=== PATIENT | female | born 1945 | race Caucasian/White ===

== ENCOUNTER 2019-11-12 09:10 | Inpatient (IN) | payer MEDICARE, SELFPAY ==
[2019-11-12] VITALS (12 sets, daily range): BP systolic 98–146; BP diastolic 66–89; PULSE 89–104; RESP 16–27; TEMP 36.4–36.7; O2SAT 89–94; BMI 19.5
--- NOTE | ~2019-11-12 | CT_ITS ---
EXAMINATION: CTA chest PE protocol DATE: 11/12/2019 13:37 INDICATION: Shortness of breath. Chest pain. TECHNIQUE: Computed tomography angiography (CTA) of the chest was performed with 100 mL Omnipaque-350 intravenous contrast timed to evaluate the pulmonary arteries. Coronal maximum intensity projection 3D-reconstructions were created by the technologist. Automated exposure control and iterative reconst ruction technique were employed. The dose-length product was 173.80 mGy-cm. COMPARISON: Chest CT 03/25/2018 FINDINGS: There is chronic scarring at the lung apices. There is severe emphysema. There is a stable 5 mm nodule in right lower lobe. There is a stable 3 mm nodule in left upper lobe. Calcified left rohan g nodules and calcified left hilar lymph nodes are consistent with old granulomatous disease. No pleu ral effusion. There are bilateral breast implants. The heart size is normal. No pericardial effusion. There are coronary artery calcifications. There is mild right hilar lymphadenopathy with the largest node measuring 12 x 15 mm. There is mucous plugging in right lower lobe. There is no pulmonary embol us. The visualized portions of the kidneys demonstrate cysts measuring up to 13 mm on the left. There is severe cervical spondylosis and mild thoracic spondylosis. There are chronic burst fractures of T 5, T8, and L1. IMPRESSION: 1. No pulmonary embolus. 2. Severe emphysema. 3. Worsened mild right hilar lymphadenopathy, likely reactive. Reviewed, dictated and finalized at location E.
--- NOTE | ~2019-11-12 | XR_ITS ---
XR chest 1V portable DATE: 11/15/2019 13:17 INDICATION: Cough, dyspnea TECHNIQUE: Portable upright AP chest on 11/15/2019 at 1315 hours COMPARISON: 11/12/2019 CT pulmonary scan FINDINGS: Emphysematous changes are again noted. No pulmonary infiltrate or consolidation, pleural ef fusion or pulmonary vascular congestion or pneumothorax is detected. Bilateral apical scarring. Normal heart size. No hilar or mediastinal enlargement. Diffuse osteopenia. T5 and T8 and L1 compression fracture deformities are demonstrated to better adva ntage on the 11/12/2019 CT thorax examination. IMPRESSION: Emphysema Osteopenia Reviewed, dictated and finalized at location A. IMPRESSION: Emphysema Osteopenia
--- NOTE | ~2019-11-12 | XR_ITS ---
EXAMINATION: XR chest 1V portable DATE: 11/12/2019 10:30 INDICATION: COPD presenting with shortness of breath TECHNIQUE: frontal view of the chest was obtained. COMPARISON: Chest CT dated 03/25/2018 FINDINGS: Hyperexpansion of lungs consistent with emphysema better appreciated on prior CT. Chronic mild pleura l-parenchymal scarring at the right apex. Calcified nodule in the left lower lung zone consistent wit h old granulomatous disease. No pulmonary edema, pleural effusion or pneumothorax. The cardiomediasti nal silhouette is normal. Bilateral breast implants. Mildly tortuous thoracic aorta. IMPRESSION: 1. Emphysema with mild right apical pleural-parenchymal scarring. No acute cardiopulmonary disease. Reviewed, dictated and finalized at location A. IMPRESSION: 1. Emphysema with mild right apical pleural-parenchymal scarring. No acute card iopulmonary disease.
--- NOTE | 2019-11-12 09:32 | ECG_ITS ---
Measurements Intervals [place] Rate: 97 P: 78 NE: 157 QRS: -58 QRSD: 77 T: 55 QT: 332 QTc: 424 Interpretive Statements SINUS RHYTHM POSSIBLE LEFT ATRIAL ENLARGEMENT LOW QRS VOLTAGE IN LIMB LEADS LEFT ANTERIOR FASCICULAR BLOCK BASELINE WANDER- V4-V5 ABNORMAL ECG Electronically Signed On 11-12-2019 13:08:56 CDT by Wilton Torrez D.O.
--- NOTE | 2019-11-12 09:35 | ED.SOB ---
HPI - SOB/Dyspnea General Chief Complaint: Shortness of Breath/Dyspnea Stated Complaint: SOB Time Seen by Provider: 11/12/19 09:20 Source: family Mode of arrival: ambulatory Limitations: clinical condition History of Present Illness HPI Narrative: This patient is a 74 year old female smoker with history of COPD who presents with complaint of shortness of breath. Patient has been short of breath since Saturday. She reports she has productive cough and shortness of breath that has been worsening. She also had chest pain that is intermittent. She is unable to discuss details of shortness of breath. She denies fever, chills, nausea or vomiting. MD elicited complaint: shortness of breath Pertinent past history: COPD Related Data Home Medications Medication Instructions Recorded Confirmed No Home Medications 11/12/19 11/12/19 Allergies Allergy/AdvReac Type Severity Reaction Status Date / Time No Known Allergies Allergy Verified 11/12/19 09:48 Review of Systems Review of Systems: All systems reviewed & are unremarkable except as noted in HPI and below Constitutional: Constitutional: Denies chills and Denies fever(s) ENT: Denies sore throat Cardiovascular: Cardiovascular: Reports chest pain and Denies radiating jaw, neck or arm pain Respiratory: Respiratory: Reports cough and Reports dyspnea Gastrointestinal: Gastrointestinal: Denies abdominal pain, Denies nausea and Denies vomiting Genitourinary: Genitourinary: Denies hematuria Neurologic: Denies dizziness Psychiatric: Psychiatric: Denies anxiety PMFSH Past Medical History Medical History (Updated 11/12/19 @ 19:00 by Annette Mckeon MD) COPD (chronic obstructive pulmonary disease) Surgical History Surgical History (Updated 11/12/19 @ 09:49 by Annette Mckeon MD) H/O: hysterectomy Family History Family History (Updated 11/12/19 @ 16:46 by Ani Castaneda RN) Mother Family history of heart disease in male family member before age 55 Cerebrovascular accident Heart attack Sibling Family history of heart disease in male family member before age 55 Heart attack Cerebrovascular accident Transitional cell carcinoma Father Cerebrovascular accident Social History Social History Years smoked: 60 Smoking status: Former smoker Tobacco type: cigarettes Second hand tobacco smoke exposure: No Smoking end date: 11/09/19 Alcohol intake: former Substance use: never Substance use type: does not use Gender identity (if verbalized by the patient): Female Spiritual care concerns: No Exam Const: General: alert and ill appearing acutely Nutritional Appearance: thin Orientation/consciousness: patient oriented x3 Eyes: EOM: EOMs intact bilaterally Chest: Chest palpation & inspection: normal inspection of the chest Resp: Effort & Inspection: tachypneic and no use of accessory muscles Auscultation: no rales, no wheezes and diminished lung sounds bilateral Cardio: Rate: regular rate Rhythm: regular rhythm Heart sounds: no murmurs GI: GI Palp: Yes Soft to palpation, No Tenderness to palpation present (GI) and No Guarding due to palpation present (GI) Skin: General skin exam: normal color Rashes: no rashes Neuro: General: patient oriented x3 Extrem: General: no pedal edema Course Course Emergency Course: PAtient presented with shortness of breath. Patient has no fever or infiltrates. Her oxygen saturation is 89-91% on room air at rest and she does appear short of breath. Will admit for COPD exacerbation. Vital Signs Vital signs: Vital Signs Temperature 98.1 F 11/12/19 09:20 Pulse Rate 100 11/12/19 09:20 Respiratory Rate 26 H 11/12/19 09:20 Blood Pressure 146/82 H 11/12/19 09:20 Pulse Oximetry 94 11/12/19 09:20 Temperature 97.8 F 11/12/19 16:17 Pulse Rate 94 11/12/19 16:17 Respiratory Rate 24 H 11/12/19 16:17 Blood Pressure 140/88 11/12/19 16:17 Pulse Oximetry
[2019-11-12 09:52] LABS: Basophils Percent Auto 0.5 % (0.2-1.2); Eosinophils Absolute Auto 0.6 K/mm3 (0-0.3); Eosinophils Percent Auto 6.9 % (0-4.4); Hematocrit 46.7 % (37.0-47.0); Hemoglobin 15.2 g/dL (12.0-15.0); Immature Granulocyte Absolute 0.04 K/mm3 (0.00-0.031); Immature Granulocyte Percent A 0.5 % (0-0.5); Lymphocytes Absolute Auto 1.74 K/mm3 (0.9-3.2); Lymphocytes Percent Auto 19.8 % (18.3-44.2); Mean Corpuscular HGB Conc 32.5 g/dl (32-36); Mean Corpuscular Hemoglobin 30.6 pg (26-34); Mean Platelet Volume 11.1 fl (7.4-10.4); Monocytes Absolute Auto 0.5 K/mm3 (0.1-0.6); Monocytes Percent Auto 5.9 % (2.6-8.5); Neutrophils Absolute Auto 5.9 K/mm3 (1.3-6.7); Neutrophils Percent Auto 66.4 % (45.5-73.1); Platelet Count Result 300 k/mm3 (150-375); Red Blood Count 4.97 M/mm3 (4.2-5.4); Red Cell Distribution Width 14.1 % (11.5-14.5); White Blood Count 8.8 K/mm3 (4.5-10.0)
[2019-11-12] MEDS: ALBUTEROL SULFATE (*SP) AEROSOL 1 PUFF 4 PUFF INHALATION ×2 (09:54→14:16)
[2019-11-12 10:05] LABS: INR 0.9; Partial Thromboplastin Time 25.2 SECONDS (22.3-36.8); Prothrombin Time 12.1 Seconds (11.1-14.7)
[2019-11-12 10:06] LABS: Lactic Acid Reflex 1.7 mmol/L (0.7-2.1)
[2019-11-12 10:17] LABS: NT Pro B Type Natriuretic Pept 159 PG/ML (5-100); Troponin I < 0.012 ng/mL (0.000-0.034)
[2019-11-12 10:21] LABS: Base Excess ABG 0.7 mEq/l (+/-2.0); HCO3 ABG 24.3 mEq/l (22.0-26.0); Oxygen Saturation ABG 91.8 % (95.0-100.0); PO2 ABG 58.9 mmHg (80.0-100.0); pH ABG 7.448 (7.350-7.450)
[2019-11-12 10:22] LABS: Total Hemoglobin 14.9 g/dL (12.0-18.0)
[2019-11-12 10:23] LABS: Alveolar/Arterial O2 Gradient 47.7 mmHg; Oxygen Content ABG 18.9 %vol (16.0-22.0); Oxyhemoglobin 90.5 % THb (90.0-100.0)
[2019-11-12 10:24] LABS: Carboxyhemoglobin 0.8 % THb (0-2.0); Device ROOM AIR; Fractional Inspired Oxygen 21 %; Methemoglobin ABG 0.2 %THb (0-1.5); Reduced Hemoglobin 8.5 %THb (0-5.0); Site Drawn RIGHT BRACHIAL
[2019-11-12 10:26] LABS: Alanine Aminotransferase 13 U/L (4-35); Albumin Level 4.9 g/dL (3.5-5.1); Alkaline Phosphatase 99 U/L (38-126); Blood Urea Nitrogen 9 mg/dL (7-17); Carbon Dioxide 26 mmol/L (22-30); Estimated CRCL calculation 50 ml/min; Estimated Glomerular Filt Rate > 60; Glucose 109 mg/dL (65-105); Magnesium 2.1 mg/dL (1.6-2.3); Sodium 140 mmol/L (137-145)
[2019-11-12 11:53] LABS: Calcium 9.8 mg/dL (8.4-10.2); Potassium 4.4 mmol/L (3.4-5.0)
[2019-11-12 11:54] LABS: Aspartate Amino Transferase 26 U/L (14-36)
[2019-11-12] MEDS: methylPREDNISolone SOD SUCC 125 MG VIAL IV PUSH (14:20)
[2019-11-12] MEDS: predniSONE 20 MG TABLET 40 MG PO (14:45)
--- NOTE | 2019-11-12 16:08 | ADMGEN ---
This patient, Mary Kate Keith, was admitted to Medical Room 348-. Patient/family oriented to hospital policies and general routines including ID bracelet, bed and alarms, visiting hours, pain management, procedures, bathroom and other care routines, personal items, smoking policy, room service/diet, and visiting hours. Valuables list has been completed. Information on how to activate the Rapid Response Team has been discussed. Patient/Family are encouraged to report perceived risks to care and to ask questions if they do not understand what they are told or what they should do.
[2019-11-12] MEDS: ALBUTEROL SULFATE (*SP) AEROSOL 1 PUFF 2 PUFF INHALATION (19:25)
--- NOTE | 2019-11-12 22:37 | PM.IMHP ---
H&P: HPI History of Present Illness Chief complaint: COPD exacerbation Narrative: This is a 74 year old female with known COPD who is a chronic smoker and presented to the hospital secondary to worsening shortness of breath, dry cough and wheezing since Saturday. The patient admits that she has been smoking up to 1.5 ppd for the past several months and decided to finally quit this past Saturday. She reports increased chest tightness with coughing, severe shortness of breath with just talking or mild exertion and ongoing wheezing. She has been using her daughter's inhalers without any improvement. She does not see a sealer aircraft and is not on any home oxygen. The patient has never been hospitalized for COPD before. Tonight she also denies any fever, chills, nausea, vomiting, abdominal pain, dysuria, hematuria, diarrhea, or LE swelling. The patient was evaluated in the ER tonight and admitted to the hospital for COPD exacerbation. She denies any contacts with anyone known to have coronavirus. No other complaints tonight. Review of Systems Review of Systems: All systems reviewed & are unremarkable except as noted in HPI and below PMFSH Past Medical History Medical History COPD (chronic obstructive pulmonary disease) Surgical History Surgical History H/O: hysterectomy Family History Family History Mother Family history of heart disease in male family member before age 55 Cerebrovascular accident Heart attack Sibling Family history of heart disease in male family member before age 55 Heart attack Cerebrovascular accident Transitional cell carcinoma Father Cerebrovascular accident Social History Social History Years smoked: 60 Smoking status: Former smoker Tobacco type: cigarettes Second hand tobacco smoke exposure: No Smoking end date: 11/09/19 Alcohol intake: former Substance use: never Substance use type: does not use Gender identity (if verbalized by the patient): Female Spiritual care concerns: No Meds Home Medications and Allergies Home Medications Medication Instructions Recorded Confirmed Type No Home Medications 11/12/19 11/12/19 History Allergies Allergy/AdvReac Type Severity Reaction Status Date / Time No Known Allergies Allergy Verified 11/12/19 09:48 Vital Signs Vital Signs - 24 hr 05/21/20 09:20 11/12/19 11:00 11/12/19 12:48 Temperature 36.7 C 36.7 C Pulse Rate 100 90 90 Respiratory Rate 26 H 24 H 27 H Blood Pressure 146/82 H 124/83 119/89 Pulse Oximetry 94 93 93 11/12/19 13:00 11/12/19 14:00 11/12/19 15:25 Temperature Pulse Rate 89 93 93 Respiratory Rate 16 22 H 22 H Blood Pressure 118/82 124/89 124/89 Pulse Oximetry 93 93 93 11/12/19 16:17 11/12/19 19:26 11/12/19 19:52 Temperature 36.6 C Pulse Rate 94 104 H 99 Respiratory Rate 24 H 24 H 22 H Blood Pressure 140/88 Pulse Oximetry 94 89 L 93 11/12/19 20:07 Temperature 36.4 C Pulse Rate 103 H Respiratory Rate 22 H Blood Pressure 98/66 L Pulse Oximetry 92 Exam Const: General: cooperative, no acute distress, alert, awake and ill appearing chronically Nutritional Appearance: thin and underweight Orientation/consciousness: patient oriented x3 HENMT: Head: normal to inspection General nose exam: Normal external nose present Face and sinus: normal facial exam Mouth: Yes Normal oral and palatal mucosa present and Yes oropharynx normal Eyes: Pupils: Equal, round and reactive pupils present EOM: EOMs intact bilaterally Neck: Neck: supple and no JVD Thyroid: thyroid normal Lymphatic: lymphadenopathy not noted Resp: Effort & Inspection: tachypneic and uses accessory muscles Auscultation: wheezes throughout and diminished lung sounds Cardio: Rate: tachycar
[2019-11-12] MEDS: GUAIFENESIN/DEXTROMETHORPHAN 10 ML UDC 5 ML PO (23:00)
[2019-11-12] MEDS: ALBUTEROL SULFATE NEB 2.5 MG/0.5 ML INH 5 MG INHALATION (23:23)
[2019-11-13] VITALS (12 sets, daily range): BP systolic 102–110; BP diastolic 57–65; PULSE 68–107; RESP 16–24; TEMP 36.2–36.9; O2SAT 87–95
--- NOTE | 2019-11-13 | ECHO_ITS ---
Patient Info Name: Mary Kate Keith Age: 74 years : 1945 Gender: Female Ht: 64 in Wt: 114 lbs BSA: 1.52 m2 HR: 97 bpm BP: 102 / 57 mmHg Heart Rhythm: Sinus Rhythm Technical Quality: Good Exam Date: 11/13/2019 3:09 PM Exam Location: [facility] Pulmonary Patient Status: Inpatient Admit Date: 11/13/2019 Staff Ordering Physician: Patience Rodriguez MD Cattle Broker: Reji Jacobson RDCS Attending Provider: Marlyn Garcia PA-C Referring Physician: Jennifer RIVERA; Exam Type: CA echo doppler color flow Study Info Indications R94.31 - Abnormal electrocardiogram ECG EKG Complete two-dimensional, color flow and Doppler transthoracic echocardiogram is performed. Strain analysis performed. History/Risk Factors COPD exacerbation; SOB, abnormal EKG. Summary 1. Left ventricular chamber dimension is normal. 2. Left ventricular systolic function is normal, estimated at 65-70%. 3. There is mildly increased left ventricular wall thickness. 4. The left ventricular diastolic function is grade I diastolic dysfunction. 5. E/e' 7 is not elevated. 6. Global longitudinal strain is abnormal at -14.4%. 7. There is mild aortic valve sclerosis. 8. There is trace tricuspid valve regurgitation. 9. No pulmonary hypertension, estimated pulmonary arterial systolic pressure is 35 mmHg. Left Ventricle E/e' 7 is not elevated. Global longitudinal strain is abnormal at -14.4%. Left ventricular chamber dimension is normal. Left ventricular systolic function is normal, estimated at 65-70%. There is mildly increased left ventricular wall thickness. The left ventricular diastolic function is grade I diastolic dysfunction. Right Ventricle Right ventricular chamber dimension is normal. Right ventricular systolic function is normal. Left Atria Left atrial chamber dimension is normal. Right Atria Right atrial chamber dimension is normal. Aortic Valve The aortic valve is trileaflet. There is mild aortic valve sclerosis. There is no aortic valve stenosis. There is no aortic valve regurgitation. Pulmonic Valve There is no pulmonic regurgitation. Mitral Valve There is no mitral valve stenosis. There is no mitral valve regurgitation. Tricuspid Valve There is trace tricuspid valve regurgitation. No pulmonary hypertension, estimated pulmonary arterial systolic pressure is 35 mmHg. Pericardium/Pleural There is no pericardial effusion. Inferior Vena Cava Normal inferior vena cava with >50% collapse upon inspiration consistent with normal right atrial pressure, 5 mmHg. Aorta The aortic root size at the sinus of Valsalva is normal. Left Ventricular Outflow Tract Name Value Normal LVOT 2D LVOT Diameter 1.8 cm LVOT Doppler LVOT Peak Gradient 4 mmHg LVOT Mean Gradient 2 mmHg LVOT VTI 14 cm LVOT VTI/AV VTI Ratio 0.6 LVOT Stroke Volume 36 ml LVOT CO 3.4 l/min LVOT CI 2.2 l/min/m2
[2019-11-13] MEDS: methylPREDNISolone SOD SUCC 125 MG VIAL 60 MG IV PUSH ×5 (01:15→23:00)
[2019-11-13] MEDS: ALBUTEROL SULFATE NEB 2.5 MG/0.5 ML INH 5 MG INHALATION ×4 (02:32→20:15)
[2019-11-13 05:56] LABS: Basophils Percent Auto 0.2 % (0.2-1.2); Eosinophils Percent Auto 0.4 % (0-4.4); Hematocrit 42.5 % (37.0-47.0); Hemoglobin 13.9 g/dL (12.0-15.0); Immature Granulocyte Absolute 0.05 K/mm3 (0.00-0.031); Immature Granulocyte Percent A 0.5 % (0-0.5); Lymphocytes Absolute Auto 1.42 K/mm3 (0.9-3.2); Lymphocytes Percent Auto 15.3 % (18.3-44.2); Mean Corpuscular HGB Conc 32.7 g/dl (32-36); Mean Corpuscular Volume 91.6 fl (80-100); Mean Platelet Volume 11.3 fl (7.4-10.4); Monocytes Absolute Auto 0.1 K/mm3 (0.1-0.6); Monocytes Percent Auto 1.5 % (2.6-8.5); Neutrophils Absolute Auto 7.6 K/mm3 (1.3-6.7); Neutrophils Percent Auto 82.1 % (45.5-73.1); Platelet Count Result 300 k/mm3 (150-375); Red Blood Count 4.64 M/mm3 (4.2-5.4); Red Cell Distribution Width 13.9 % (11.5-14.5); White Blood Count 9.3 K/mm3 (4.5-10.0)
[2019-11-13 06:36] LABS: Blood Urea Nitrogen 14 mg/dL (7-17); Calcium 9.7 mg/dL (8.4-10.2); Carbon Dioxide 26 mmol/L (22-30); Chloride 105 mmol/L (98-107); Estimated CRCL calculation 50 ml/min; Estimated Glomerular Filt Rate > 60; Glucose 128 mg/dL (65-105); Magnesium 2.2 mg/dL (1.6-2.3); Potassium 4.2 mmol/L (3.4-5.0); Sodium 136 mmol/L (137-145)
--- NOTE | 2019-11-13 12:09 | PM.IMPN ---
Progress Note: A&P Assessment and Plan (1) Acute exacerbation of chronic obstructive airways disease: Code(s): J44.1 - Chronic obstructive pulmonary disease with (acute) exacerbation Status: Acute Assessment and Plan: The patient reports a 45 pack-year smoking hx. She quit smoking on Wednesday 11/08 due to onset of dyspnea, dry cough, and wheezing since Saturday, 11/07. She did use her daughter's inhalers with no significant improvement. She is not established with pulmonology and has no prior hx of hospitalization for COPD exacerbation. CXR revealed emphysema. CTA chest was ordered and revealed severe emphysema without evidence of PE. Use supplemental oxygen as needed to main oxygen saturation >92%, wean as tolerated Continuous pulse oximetry Continue albuterol and ipratropium Q6HRT Continue IV solu-medrol 60mg Q6HR Continue accapella therapy Continue mucinex PRN Continue pulmozyme Pulmonology has been consulted and recommendations are greatly appreciated (2) Atherosclerosis: Code(s): I70.90 - Unspecified atherosclerosis Status: Acute Assessment and Plan: CTA chest revealed coronary artery calcification. She will need to follow-up outpatient as she has risk factors for CAD. Begin ASA EC 81mg Will check lipid panel Time Spent With Patient Time with patient: 15 - 25 minutes Subjective Date/time seen: 11/13/19 12:09 Interval history: Mrs. Keith is seen and examined at bedside in follow-up for COPD. She endorses dyspnea. She also reports paroxysmal coughing fits that are non-productive. She recently quit smoking on Saturday. Her dyspnea started on Saturday and has progressively worsened so she presented to the ED. She denies chest pain. She is eating well without complaints. She has no urinary complaints. She denies diarrhea and constipation. She denies headaches, dizziness, and lightheadedness. Review of Systems Review of Systems: All systems reviewed & are unremarkable except as noted in HPI and below Exam Narrative: Exam Narrative: General: Thin, chronically ill-appearing, and well-developed 74 y.o. female who is sitting in the byers's position in bed. HEENT: Normocephalic and atraumatic. Conjunctivae and lids normal. PERRL. EOMI. Mucous membranes tacky. Posterior pharynx without erythema or exudate. Neck: Supple without lymphadenopathy or masses. Cardiac: Regular rate and rhythm. S1 and S2 normal. No murmur appreciated. Lungs: On 3L NC with oxygen saturation 95%. Increased breathing effort and accessory muscle use. Breath sounds are diminished with prolonged inspiratory phase. Faint expiratory wheezes present in the bases. No rhonchi or rales. She had a coughing fit during my interview that was non-productive. Abdomen: Bowel sounds normoactive. Abdomen is soft, non-distended, and non-tender. Extremities: No lower extremity edema. 2+ DP and PT bilaterally. Neurological: Alert. Speech is clear. Skin: Warm and dry. Psychiatric: Judgment and insight intact. Mood pleasant and affect normal. Objective Data Vital Signs Vital Signs: Vital Signs - 24 hr 11/12/19 12:48 11/12/19 13:00 11/12/19 14:00 Temperature 98.1 F Pulse Rate 90 89 93 Respiratory Rate 27 H 16 22 H Blood Pressure 119/89 118/82 124/89 Pulse Oximetry 93 93 93 11/12/19 15:25 11/12/19 16:17 11/12/19 19:26 Temperature 97.8 F Pulse Rate 93 94 104 H Respiratory Rate 22 H 24 H 24 H Blood Pressure 124/89 140/88 Pulse Oximetry 93 94 89 L 11/12/19 19:52 11/12/19 20:07 11/12/19 23:26 Temperature 97.6 F Pulse Rate 99 103 H 90 Respiratory Rate 22 H 22 H 22 H Blood Pressure 98/66 L Pulse Oximetry 93 92 11/12/19 23:35 11/13/19 02:33 11/13/19 02:40 Temperature Pulse Rate 89 84 82 Respiratory Rate 20 18 18 Blood Pressure Pulse Oximetry 11/13/19 05:27 11/13/19 09:10 11/13/19 09:15 Temperature 97.1 F L Pulse Rate 86 91 Respiratory Rate 20 16 Blood Pressure 103/65 Pulse
[2019-11-13] MEDS: IPRATROPIUM BR 0.02% INH SOLN 0.5 MG/2.5 ML VIAL INHALATION ×2 (14:17→20:15)
--- NOTE | 2019-11-13 14:31 | PM.CNPUL ---
Assessment and Plan Assessment and plan (1) Acute exacerbation of chronic obstructive airways disease: Code(s): J44.1 - Chronic obstructive pulmonary disease with (acute) exacerbation Status: Acute Assessment and Plan: She has severe COPD on the CTA, is not on Rx at home. She is on steroid wean, bronchodilators, Pulmozyme, empiric azithromycin for mucus plugging and secretions along with vibratory vest and Cornet valve. She will need PFTs after discharge and evaluation for cardiopulmonary rehab. She may be a candidate for exercise at home. With 2 minors at home, she will not be able to leave home 3 times a week for exercise. (2) History of tobacco abuse: Code(s): Z87.891 - Personal history of nicotine dependence Status: Acute Assessment and Plan: Stopped November 08 after 60 sol years of smoking, most recently up to 2 ppd.No vaping, no marijuana. (3) Hypoxemia requiring supplemental oxygen: Code(s): R09.02 - Hypoxemia; Z99.81 - Dependence on supplemental oxygen Status: Acute Assessment and Plan: This may be due to the exacerbation of COPD; we do not know what her baseline is; she has smoked until SaturdayNovember 08, stopped because she was too short of breath to continue. She will need a Home O2 evaluation before discharge, and PFT, exercise evaluation and possibly sleep testing after discharge. She does nto have CO2 retnetion. She does not follow with a primary care doctor, says that Dr Swift is her assigned doctor, and that she has had an appointment with his FIELD CONTRACTOR, but has not followed up; she must do so, and I will be happy to see her in the office. She is 74, and needs a primary doctor to coordinate her medical issues. (4) Shortness of Breath: Code(s): R06.02 - Shortness of breath Status: Acute Assessment and Plan: With tobacco cessation and addition of bronchodilators, she may go home and have more energy; another possibility is that she may not return to pre-admission baseline; this loss of reserve occurs with exacerbations of COPD. History of Present Illness History of Present Illness Consult date: 11/15/19 Requesting physician: Marlyn Garcia PA-C Reason for consult: COPD Chief complaint: COPD exacerbation Narrative: Marlyn Garcia PA-C requested me to see this patient for COPD exacerbation and shortness of breath. Patient was seen November 14 at 19:45. NEW: Mary Kate Keith is a 74 yo smoker with no past medical history of COPD. She was admitted with increased shortness of breath, nonproductive cough that was severe to the point of near syncope. CXR was negative for infiltrate. She has been a heavy smoker, a pack a day for close to 60 years, usually 3/4 packs per day, however increased to 2 packs a day for the last month due to increased stress while adopting a 5 year old son. She has an eleven year old son at home, too. She was stopped smoking last Saturday due to increased shortness of breath. CT chest : No pulmonary embolus. 2. Severe emphysema. 3. Worsened mild right hilar lymphadenopathy, likely reactive. She has never been on inhalers, and denies prior shortness of breath, cough, sputum, wheezing or other symptoms of COPD. She had a hospitalization for pneumonia in 1977, otherwise, denies respiratory infections. She is able to perform her daily activities, has back up help for shopping from her son who lives a house away, [place], and her daughter. She has 8 biologic children, retired from [employer] after 40 years of work. She had an intense coughing episode today at 11 am, and has sharp pain in the left posterior ribs. Had history of RLL nodule since 2010. Syncope in 2017 documented in our radiology reports, and
[2019-11-13] MEDS: GUAIFENESIN/DEXTROMETHORPHAN 10 ML UDC 5 ML PO (19:09)
[2019-11-13] MEDS: DORNASE ALFA INH SOLN 1 MG/ML 2.5 ML AMP 2.5 MG INHALATION (20:15)
[2019-11-14] VITALS (13 sets, daily range): BP systolic 103–106; BP diastolic 59–68; PULSE 75–110; RESP 18–20; TEMP 36.2–36.9; O2SAT 92–96
[2019-11-14] MEDS: ALBUTEROL SULFATE NEB 2.5 MG/0.5 ML INH 5 MG INHALATION ×4 (01:43→19:41)
[2019-11-14] MEDS: IPRATROPIUM BR 0.02% INH SOLN 0.5 MG/2.5 ML VIAL INHALATION ×4 (01:43→19:41)
[2019-11-14] MEDS: methylPREDNISolone SOD SUCC 125 MG VIAL 60 MG IV PUSH ×3 (05:51→21:16)
[2019-11-14 06:13] LABS: Hematocrit 39.3 % (37.0-47.0); Hemoglobin 12.6 g/dL (12.0-15.0); Mean Corpuscular HGB Conc 32.1 g/dl (32-36); Mean Corpuscular Hemoglobin 29.8 pg (26-34); Mean Corpuscular Volume 92.9 fl (80-100); Platelet Count Result 277 k/mm3 (150-375); Red Blood Count 4.23 M/mm3 (4.2-5.4); Red Cell Distribution Width 14.1 % (11.5-14.5); White Blood Count 21.6 K/mm3 (4.5-10.0)
[2019-11-14 06:26] LABS: Blood Urea Nitrogen 18 mg/dL (7-17); Carbon Dioxide 25 mmol/L (22-30); Chloride 108 mmol/L (98-107); Cholesterol 176 mg/dL (0-200); Estimated CRCL calculation 50 ml/min; Estimated Glomerular Filt Rate > 60; Glucose 127 mg/dL (65-105); HDL Direct 53 mg/dL; Potassium 4.6 mmol/L (3.4-5.0); Sodium 138 mmol/L (137-145); Triglycerides 70 mg/dL (<150)
[2019-11-14 06:37] LABS: LDL Cholesterol Direct 94 mg/dL
[2019-11-14] MEDS: AZITHROMYCIN 250 MG TABLET PO (08:53)
[2019-11-14] MEDS: ASPIRIN 81 MG ENTERIC TABLET PO (08:53)
[2019-11-14] MEDS: DORNASE ALFA INH SOLN 1 MG/ML 2.5 ML AMP 2.5 MG INHALATION ×2 (08:58→19:41)
[2019-11-14] MEDS: GUAIFENESIN/DEXTROMETHORPHAN 10 ML UDC 5 ML PO (11:29)
--- NOTE | 2019-11-14 12:09 | PM.IMPN ---
Progress Note: A&P Assessment and Plan (1) Acute exacerbation of chronic obstructive airways disease: Code(s): J44.1 - Chronic obstructive pulmonary disease with (acute) exacerbation Status: Acute Assessment and Plan: The patient reports a 45 pack-year smoking hx. She quit smoking on Wednesday 11/08 due to onset of dyspnea, dry cough, and wheezing since Saturday, 11/07. She did use her daughter's inhalers with no significant improvement. She is not established with pulmonology and has no prior hx of hospitalization for COPD exacerbation. CXR revealed emphysema. CTA chest was ordered and revealed severe emphysema without evidence of PE. Discussed with Dr. Rodriguez. Echo revealed normal LV systolic function with EF 60-75% and grade 1 diastolic dysfunction with no evidence of pulmonary hypertension. Use supplemental oxygen as needed to main oxygen saturation >92%, wean as tolerated Continue albuterol and ipratropium Q6HRT Continue IV solu-medrol, will taper to 60mg Q8HR Continue accapella therapy, will add vest to help loosen secretions Continue mucinex PRN Continue pulmozyme Pulmonology has been consulted and recommendations are greatly appreciated (2) Atherosclerosis: Code(s): I70.90 - Unspecified atherosclerosis Status: Acute Assessment and Plan: CTA chest revealed coronary artery calcification. She will need to follow-up outpatient as she has risk factors for CAD. Echo was performed to evaluate for HTN and reveals normal LV systolic function of 65-70% and grade 1 diastolic dysfunction. Begin ASA EC 81mg Lipid panel was normal Subjective Date/time seen: 11/14/19 12:09 Interval history: Mrs. Keith is seen and examined at bedside in follow-up for COPD exacerbation. She is feeling better today. She reports that she slept well last night. She continues to endorse dyspnea with exertion. She denies SOB walking to the bathroom but does develop it walking back. She denies dyspnea at rest. She denies chest pain and pressure. She denies palpitations. She reports persistent episodes of cough and did have white/light yellow sputum. She denies subjective fever and chills. She reports that her appetite is good and she is tolerating PO intake well. She denies constipation and diarrhea. Review of Systems Review of Systems: All systems reviewed & are unremarkable except as noted in HPI and below Exam Narrative: Exam Narrative: General: Thin, chronically ill appearing and well-developed 74 y.o. female who is lying in the semi-byers's position in bed in no acute distress. She is non-toxic appearing. HEENT: Normocephalic and atraumatic. Conjunctivae and lids normal. EOMI. Mucous membranes moist. Posterior pharynx without erythema or exudate. Neck: Supple without lymphadenopathy or masses. Cardiac: Regular rate and rhythm. S1 and S2 normal. No murmur. Lungs: On 2.5 NC with oxygen saturation 97%. Effort is normal. Breath sounds are diminished throughout with prolonged inspiratory phase. No wheezes, rhonchi, or rales. Abdomen: Bowel sounds normoactive. Abdomen is soft, non-distended, and non-tender. Extremities: No lower extremity edema. DP and PT 2+ bilaterally. Neurological: Alert and orientedx3. Exam is non-focal. Speech is clear. Skin: Warm and dry. Psychiatric: Judgment and insight intact. Mood pleasant and affect normal. Objective Data Vital Signs Vital Signs: Vital Signs - 24 hr 11/13/19 14:19 11/13/19 14:26 11/13/19 15:14 Temperature 98.5 F Pulse Rate 84 86 68 Respiratory Rate 20 20 22 H Blood Pressure 102/57 L Pulse Oximetry 93 11/13/19 19:48 11/13/19 20:17 11/13/19 20:18 Temperature 98.1 F Pulse Rate 107 H 100 Respiratory Rate 24 H 20 Blood Pressure 110/61 Pulse Oximetry 95 90 11/13/19 20:36 11/14/19 01:45 11/14/19 01:55 Temperature Pulse Rate 103 H 89 91 Respiratory Rate 18 18 Blood Pressure Pulse Oximetry 11/14/19 05:54 11/14/19 08:58
[2019-11-14] MEDS: CALCIUM CARBONATE (TUMS) 500 MG (200 MG ELEMENTAL) PO (21:16)
[2019-11-14] MEDS: FAMOTIDINE 20 MG TABLET PO (21:16)
[2019-11-15] VITALS (12 sets, daily range): BP systolic 111–128; BP diastolic 66–75; PULSE 70–94; RESP 18–20; TEMP 36.3–36.7; O2SAT 95–98
[2019-11-15] MEDS: IPRATROPIUM BR 0.02% INH SOLN 0.5 MG/2.5 ML VIAL INHALATION ×4 (01:20→20:35)
[2019-11-15] MEDS: ALBUTEROL SULFATE NEB 2.5 MG/0.5 ML INH 5 MG INHALATION ×4 (01:20→20:35)
[2019-11-15] MEDS: methylPREDNISolone SOD SUCC 125 MG VIAL 60 MG IV PUSH ×2 (05:36→20:00)
[2019-11-15 06:01] LABS: Hemoglobin 12.3 g/dL (12.0-15.0); Mean Corpuscular HGB Conc 32.4 g/dl (32-36); Mean Corpuscular Hemoglobin 30.7 pg (26-34); Mean Corpuscular Volume 94.8 fl (80-100); Mean Platelet Volume 11.4 fl (7.4-10.4); Platelet Count Result 261 k/mm3 (150-375); Red Blood Count 4.01 M/mm3 (4.2-5.4); Red Cell Distribution Width 14.1 % (11.5-14.5); White Blood Count 17.5 K/mm3 (4.5-10.0)
[2019-11-15 06:14] LABS: Blood Urea Nitrogen 16 mg/dL (7-17); Calcium 8.7 mg/dL (8.4-10.2); Carbon Dioxide 27 mmol/L (22-30); Chloride 106 mmol/L (98-107); Estimated CRCL calculation 50 ml/min; Estimated Glomerular Filt Rate > 60; Glucose 119 mg/dL (65-105); Potassium 4.3 mmol/L (3.4-5.0); Sodium 137 mmol/L (137-145)
[2019-11-15 06:35] LABS: Hemoglobin A1C 5.5 % (<5.7)
[2019-11-15] MEDS: DORNASE ALFA INH SOLN 1 MG/ML 2.5 ML AMP 2.5 MG INHALATION ×2 (08:14→20:36)
[2019-11-15] MEDS: AZITHROMYCIN 250 MG TABLET PO (08:41)
[2019-11-15] MEDS: ASPIRIN 81 MG ENTERIC TABLET PO (08:41)
[2019-11-15] MEDS: FAMOTIDINE 20 MG TABLET PO ×2 (08:41→20:00)
[2019-11-15] MEDS: GUAIFENESIN/DEXTROMETHORPHAN 10 ML UDC 5 ML PO (11:25)
--- NOTE | 2019-11-15 12:46 | PM.IMPN ---
Progress Note: A&P Assessment and Plan (1) Acute exacerbation of chronic obstructive airways disease: Code(s): J44.1 - Chronic obstructive pulmonary disease with (acute) exacerbation Status: Acute Assessment and Plan: The patient reports a 45 pack-year smoking hx. She quit smoking on Wednesday 11/08 due to onset of dyspnea, dry cough, and wheezing since Saturday, 11/07. She did use her daughter's inhalers with no significant improvement. She is not established with pulmonology and has no prior hx of hospitalization for COPD exacerbation. CXR revealed emphysema. CTA chest was ordered and revealed severe emphysema without evidence of PE. Discussed with Dr. Rodriguez who is on board. Echo revealed normal LV systolic function with EF 60-75% and grade 1 diastolic dysfunction with no evidence of pulmonary hypertension. She was weaned to 2L NC today (11/14). She reports that her dyspnea continues to improve but she is still having dyspnea on exertion. She is producing small amounts of sputum with her cough. She had a mucous plug evident in the RLL on CTA chest. She does believe that vest therapy is helping her to mobilize secretions. Use supplemental oxygen as needed to main oxygen saturation >92%, wean as tolerated Continue albuterol and ipratropium Q6HRT Continue IV solu-medrol, will taper to 60mg Q12 HR Continue accapella and vest therapy Continue mucinex, will schedule Will add benzonatate PRN for persistent/severe coughing Continue pulmozyme Pulmonology has been consulted and recommendations are greatly appreciated (2) Atherosclerosis: Code(s): I70.90 - Unspecified atherosclerosis Status: Acute Assessment and Plan: CTA chest revealed coronary artery calcification. She will need to follow-up outpatient as she has risk factors for CAD. Echo was performed to evaluate for HTN and reveals normal LV systolic function of 65-70% and grade 1 diastolic dysfunction. Begin ASA EC 81mg Lipid panel was normal Will defer decision to start a statin to her PCP (3) Leukocytosis: Code(s): D72.829 - Elevated white blood cell count, unspecified Status: Acute Assessment and Plan: WBC was 9,300 at presentation. She developed leukocytosis 11/13, likely due to high dose IV steroid therapy. She is afebrile. She is on azithromycin for her COPD exacerbation. Will repeat CXR today. Continue to monitor (4) DVT prophylaxis: Code(s): Z29.9 - Encounter for prophylactic measures, unspecified Status: Acute Assessment and Plan: Lovenox SQ is ordered but the patient is refusing it because she is very scared of needles. She is agreeable to SCDs. I discussed the risk of VTE while hospitalized and with her current condition/therapy. Subjective Date/time seen: 11/15/19 12:46 Interval history: Mrs. Keith is seen and examined at bedside in follow-up for COPD exacerbation. Overall, she reports that she is feeling better. She does continue to have intermittent coughing episodes. She reports one episode earlier today and she coughed several times during my visit with light yellow/white sputum production. She reports that her dyspnea at rest has improved. She still endorses FUNEZ. She endorses costal tenderness with coughing. She denies chest pain and pressure. She has no other concerns at this time. She denies constipation and diarrhea. She denies nausea, vomiting, and abdominal pain. Review of Systems Review of Systems: All systems reviewed & are unremarkable except as noted in HPI and below Exam Narrative: Exam Narrative: General: Thin, well-developed, and chronically ill appearing 74 y.o. female sitting in bed in the byers's position in bed in no acute respiratory distress. HEENT: Normocephalic and atraumatic. Conjunctivae and lids normal. EOMI. Mucous membranes moist. Posterior pharynx without erythema or exudate. Neck: Supple without lymphadenopathy or masses. Cardiac: Regular rate
[2019-11-16] VITALS (15 sets, daily range): BP systolic 119–130; BP diastolic 68–81; PULSE 70–96; RESP 18–20; TEMP 36.1–36.6; O2SAT 93–96
[2019-11-16] MEDS: ALBUTEROL SULFATE NEB 2.5 MG/0.5 ML INH 5 MG INHALATION ×2 (01:05→09:28)
[2019-11-16] MEDS: IPRATROPIUM BR 0.02% INH SOLN 0.5 MG/2.5 ML VIAL INHALATION ×4 (01:05→21:19)
[2019-11-16 08:06] LABS: Basophils Percent Auto 0.2 % (0.2-1.2); Eosinophils Percent Auto 0.1 % (0-4.4); Hematocrit 41.2 % (37.0-47.0); Hemoglobin 13.4 g/dL (12.0-15.0); Immature Granulocyte Absolute 0.22 K/mm3 (0.00-0.031); Immature Granulocyte Percent A 1.4 % (0-0.5); Lymphocytes Absolute Auto 2.66 K/mm3 (0.9-3.2); Lymphocytes Percent Auto 17.5 % (18.3-44.2); Mean Corpuscular HGB Conc 32.5 g/dl (32-36); Mean Corpuscular Hemoglobin 31.1 pg (26-34); Mean Corpuscular Volume 95.6 fl (80-100); Mean Platelet Volume 11.2 fl (7.4-10.4); Monocytes Absolute Auto 1.1 K/mm3 (0.1-0.6); Neutrophils Absolute Auto 11.2 K/mm3 (1.3-6.7); Neutrophils Percent Auto 73.8 % (45.5-73.1); Platelet Count Result 268 k/mm3 (150-375); Red Blood Count 4.31 M/mm3 (4.2-5.4); Red Cell Distribution Width 13.9 % (11.5-14.5); White Blood Count 15.2 K/mm3 (4.5-10.0)
[2019-11-16 08:18] LABS: Magnesium 2.3 mg/dL (1.6-2.3)
[2019-11-16] MEDS: ASPIRIN 81 MG ENTERIC TABLET PO (08:32)
[2019-11-16] MEDS: AZITHROMYCIN 250 MG TABLET PO (08:32)
[2019-11-16] MEDS: FAMOTIDINE 20 MG TABLET PO ×2 (08:32→21:44)
[2019-11-16] MEDS: methylPREDNISolone SOD SUCC 125 MG VIAL 60 MG IV PUSH (08:33)
[2019-11-16] MEDS: DORNASE ALFA INH SOLN 1 MG/ML 2.5 ML AMP 2.5 MG INHALATION ×2 (09:28→21:19)
--- NOTE | 2019-11-16 11:08 | PC.NURSE ---
Per Cara WRIGHT, IV can be left out for now, since it infiltrated, until she sees the pt today.
--- NOTE | 2019-11-16 13:16 | PM.PNPUL ---
Progress Note: A&P Assessment and Plan (1) Acute exacerbation of chronic obstructive airways disease: Code(s): J44.1 - Chronic obstructive pulmonary disease with (acute) exacerbation Status: Acute Assessment and Plan: - d/c solumedrol and start prednisone 30 mg daily daily tomorrow am for 4-5 days - decrease dose of Albuterol Neb to 2.5 mg Q6h - add pulmicort 0.5 mg Q12h - upon discharge switch to Symbicort 160/4.5 mcg 2 puffs Q12h via spacer device + Spiriva 18 mcg 1 puff daily - continue PT/OT - assess oxygen on exertion. Subjective Date/time seen: 11/16/19 13:16 Interval history: 74 y/o with newly diagnosed COPD, likely moderate to severe. Will likely need home O2. Still very short of breath with minimal exertion but slowly recovering. Lost IV line line this morning. Review of Systems Review of Systems: All systems reviewed & are unremarkable except as noted in HPI and below Exam Const: General: in distress and uncomfortable HENMT: Mouth: Yes moist mucous membranes Eyes: General: appearance normal, both eyes and all related structures Neck: Neck: supple and no JVD Resp: Auscultation: wheezes and diminished lung sounds Cardio: Rate: regular rate Rhythm: regular rhythm Heart sounds: no murmurs GI: Auscultation: normal bowel sounds Neuro: Speech: normal speech Extrem: General: normal to inspection, no edema and no pedal edema Psych: Mental Status: mental status grossly normal Affect: Anxious affect present Objective Data Vital Signs Vital Signs: Vital Signs - 24 hr 11/15/19 13:52 11/15/19 14:00 11/15/19 19:38 Temperature 36.4 C 36.3 C L Pulse Rate 94 82 86 Respiratory Rate 20 18 20 Blood Pressure 128/69 115/75 Pulse Oximetry 96 97 11/15/19 20:36 11/15/19 20:50 11/16/19 01:05 Temperature Pulse Rate 74 79 70 Respiratory Rate 20 20 18 Blood Pressure Pulse Oximetry 96 11/16/19 01:14 11/16/19 05:26 11/16/19 08:30 Temperature 36.1 C L Pulse Rate 71 75 95 Respiratory Rate 18 20 Blood Pressure 123/78 Pulse Oximetry 96 11/16/19 09:30 11/16/19 09:40 Temperature Pulse Rate 72 96 Respiratory Rate 18 20 Blood Pressure Pulse Oximetry Intake/Output Intake/Output: Intake & Output 11/13/19 11/14/19 11/15/19 11/16/19 23:59 23:59 23:59 23:59 Intake Total 1415 2020 2740 370 Output Total 300 2050 2650 1050 Balance 1115 -30 90 -680 Meds/Results Medications: Active Medications Generic Name Dose Route Start Last Admin Trade Name Freq PRN Reason Stop Dose Admin Albuterol 2.5 mg 11/13/19 15:19 Albuterol Sulf Neb 2.5mg/0.5ml INHALATION Q4HRT PRN Shortness Of Breath Aspirin 81 mg 11/14/19 09:00 11/16/19 08:32 Aspirin Ec PO 81 mg QAM ANT Administration Azithromycin 250 mg 11/14/19 09:00 11/16/19 08:32 Zithromax Tablet PO 11/17/19 09:01 250 mg DAILY ANT Administration Benzonatate 100 mg 11/15/19 13:08 Tessalon Perles PO TID PRN Cough Calcium Carbonate 200 mg 11/14/19 20:53 11/14/19 21:16 Tums PO 200 mg Q6H PRN Administration Indigestion Dornase Yassine 2.5 mg 11/13/19 20:00 11/16/19 09:28 Pulmozyme INHALATION 2.5 mg Q12HRT ANT Administration Enoxaparin Sodium 40 mg 11/13/19 21:00 11/15/19 19:57 Lovenox SUB-Q Not Given HS [facility] Famotidine 20 mg 11/14/19 21:00 11/16/19 08:32 Pepcid PO 20 mg Q12HR ANT Administration Guaifenesin 600 mg 11/15/19 21:00 11/16/19 08:32 Mucinex 12 Hr Tab PO 600 mg Q12HR ANT Administration Ipratropium Adams 0.5 mg 11/13/19 14:00 11/16/19 09:28 Atrovent Neb INHALATION 0.5 mg Q6HRT ANT Administration Radiology Results: ITS Impressions Chest CTA 11/12/19 13:47 IMPRESSION: 1. No pulmonary embolus. 2. Severe emphysema. 3. Worsened mild right hilar lymphadenopathy, likely reactive. Chest X-Ray 11/15/19 13:21 IMPRESSION: Emphysema Osteopenia Labs Labs:
--- NOTE | 2019-11-16 13:25 | PM.IMPN ---
Progress Note: A&P Assessment and Plan (1) Acute exacerbation of chronic obstructive airways disease: Code(s): J44.1 - Chronic obstructive pulmonary disease with (acute) exacerbation Status: Acute Assessment and Plan: The patient reports a 45 pack-year smoking hx. She quit smoking on Wednesday 11/08 due to onset of dyspnea, dry cough, and wheezing since Saturday, 11/07. She did use her daughter's inhalers with no significant improvement. She is not established with pulmonology and has no prior hx of hospitalization for COPD exacerbation. CXR revealed emphysema. CTA chest was ordered and revealed severe emphysema without evidence of PE. Discussed with Dr. Rodriguez who is on board. Echo revealed normal LV systolic function with EF 60-75% and grade 1 diastolic dysfunction with no evidence of pulmonary hypertension. She was weaned to 1.5L per NC 11/15. She continues to endorse dyspnea on exertion. Pulmonology has been consulted and recommendations are greatly appreciated Use supplemental oxygen as needed to main oxygen saturation >92%, wean as tolerated Continue albuterol and ipratropium Q6HRT, plan to decreased albuterol dose per pulmonology recommendations Discontinue solu-medrol and transition to PO prednisone starting tomorrow (11/15) for 4-5 days Continue accapella and vest therapy Continue mucinex Will add benzonatate PRN for persistent/severe coughing Continue pulmozyme Begin pulmoicort and switch to Symbicort 160/4.5 mcg 2 puffs Q12h via spacer device + Spiriva 18 mcg 1 puff daily at discharge She will need a 6 minute walk test prior to discharge to evaluate for home oxygen needs within 24 of discharge (2) Atherosclerosis: Code(s): I70.90 - Unspecified atherosclerosis Status: Acute Assessment and Plan: CTA chest revealed coronary artery calcification. She will need to follow-up outpatient as she has risk factors for CAD. Echo was performed to evaluate for HTN and reveals normal LV systolic function of 65-70% and grade 1 diastolic dysfunction. Continue ASA EC 81mg Lipid panel was normal Will defer decision to start a statin to her PCP (3) Leukocytosis: Code(s): D72.829 - Elevated white blood cell count, unspecified Status: Acute Assessment and Plan: WBC was 9,300 at presentation. She developed leukocytosis 11/13, likely due to high dose IV steroid therapy. She is afebrile. She is on azithromycin for her COPD exacerbation. CXR was repeated and reveals emphysema without consolidation. WBC continues to trend down. Continue to monitor (4) DVT prophylaxis: Code(s): Z29.9 - Encounter for prophylactic measures, unspecified Status: Acute Assessment and Plan: Lovenox SQ is ordered but the patient is refusing it because she is very scared of needles. She is agreeable to SCDs. I discussed the risk of VTE while hospitalized and with her current condition/therapy. Subjective Date/time seen: 11/16/19 13:25 Interval history: Mrs. Keith is seen in follow-up for a COPD exacerbation. She continues to endorse FUNEZ. She is feeling better at rest. She reports fewer coughing fits. She has no other complaints at this time. She is tolerating her diet well. She denies constipation and diarrhea. She denies chest pain and palpitations. She reports that her costal tenderness is much better now that her coughing has improved. Review of Systems Review of Systems: All systems reviewed & are unremarkable except as noted in HPI and below Exam Narrative: Exam Narrative: General: Very pleasant and cooperative thin, well-developed and chronically ill appearing 74 y.o. female sitting in the semi-recumbent position in bed in no acute distress. HEENT: Normocephalic and atraumatic. Sclerae anicteric. Conjunctivae and lids normal. EOMI. Mucous membranes moist. Posterior pharynx without erythema or exudate. Neck: Supple without lymphadenopathy or masses. Cardiac: Regular ra
[2019-11-16] MEDS: ALBUTEROL SULFATE NEB 2.5 MG/0.5 ML INH INHALATION ×2 (15:15→21:19)
[2019-11-16] MEDS: BUDESONIDE RESPULE NEB 0.5 MG/2 ML AMP INHALATION (21:19)
[2019-11-17] VITALS (17 sets, daily range): BP systolic 106–135; BP diastolic 73–83; PULSE 77–101; RESP 16–20; TEMP 36.3–37.2; O2SAT 92–96
[2019-11-17] MEDS: IPRATROPIUM BR 0.02% INH SOLN 0.5 MG/2.5 ML VIAL INHALATION ×4 (02:45→20:23)
[2019-11-17] MEDS: ALBUTEROL SULFATE NEB 2.5 MG/0.5 ML INH INHALATION ×4 (02:45→20:23)
[2019-11-17 05:38] LABS: Hematocrit 37.7 % (37.0-47.0); Hemoglobin 12.1 g/dL (12.0-15.0); Mean Corpuscular HGB Conc 32.1 g/dl (32-36); Mean Corpuscular Hemoglobin 30.3 pg (26-34); Mean Corpuscular Volume 94.5 fl (80-100); Mean Platelet Volume 11.5 fl (7.4-10.4); Platelet Count Result 234 k/mm3 (150-375); Red Blood Count 3.99 M/mm3 (4.2-5.4); White Blood Count 14.5 K/mm3 (4.5-10.0)
[2019-11-17 05:49] LABS: Blood Urea Nitrogen 16 mg/dL (7-17); Calcium 8.5 mg/dL (8.4-10.2); Carbon Dioxide 32 mmol/L (22-30); Chloride 103 mmol/L (98-107); Estimated CRCL calculation 50 ml/min; Estimated Glomerular Filt Rate > 60; Glucose 84 mg/dL (65-105); Potassium 3.5 mmol/L (3.4-5.0); Sodium 137 mmol/L (137-145)
[2019-11-17] MEDS: AZITHROMYCIN 250 MG TABLET PO (08:19)
[2019-11-17] MEDS: FAMOTIDINE 20 MG TABLET PO ×2 (08:19→20:00)
[2019-11-17] MEDS: predniSONE 20 MG, predniSONE 10 MG 30 MG PO (08:19)
[2019-11-17] MEDS: ASPIRIN 81 MG ENTERIC TABLET PO (08:20)
[2019-11-17] MEDS: DORNASE ALFA INH SOLN 1 MG/ML 2.5 ML AMP 2.5 MG INHALATION ×2 (08:50→20:23)
[2019-11-17] MEDS: BUDESONIDE RESPULE NEB 0.5 MG/2 ML AMP INHALATION ×2 (08:50→20:23)
--- NOTE | 2019-11-17 12:24 | PM.PNPUL ---
Progress Note: A&P Assessment and Plan (1) Acute exacerbation of chronic obstructive airways disease: Code(s): J44.1 - Chronic obstructive pulmonary disease with (acute) exacerbation Status: Acute Assessment and Plan: - d/c solumedrol and start prednisone 30 mg daily daily tomorrow am for 4-5 days - decrease dose of Albuterol Neb to 2.5 mg Q6h - add pulmicort 0.5 mg Q12h - upon discharge switch to Symbicort 160/4.5 mcg 2 puffs Q12h via spacer device + Spiriva 18 mcg 1 puff daily - continue PT/OT - assess oxygen on exertion. Time Spent With Patient Time with patient: 15 - 25 minutes Subjective Date/time seen: 11/17/19 12:24 Interval history: She says she's feeling better but still very short of breath with minimal exertion Review of Systems Review of Systems: All systems reviewed & are unremarkable except as noted in HPI and below Exam Const: General: in distress and uncomfortable HENMT: Mouth: Yes moist mucous membranes Eyes: General: appearance normal, both eyes and all related structures Neck: Neck: supple and no JVD Resp: Auscultation: wheezes and diminished lung sounds Cardio: Rate: regular rate Rhythm: regular rhythm Heart sounds: no murmurs GI: Auscultation: normal bowel sounds Neuro: Speech: normal speech Extrem: General: normal to inspection, no edema and no pedal edema Psych: Mental Status: mental status grossly normal Affect: Anxious affect present Objective Data Vital Signs Vital Signs: Vital Signs - 24 hr 11/16/19 14:46 11/16/19 15:18 11/16/19 15:29 Temperature 36.6 C Pulse Rate 92 84 88 Respiratory Rate 18 20 20 Blood Pressure 119/68 Pulse Oximetry 95 11/16/19 16:45 11/16/19 21:19 11/16/19 21:26 Temperature Pulse Rate 84 84 Respiratory Rate 20 20 Blood Pressure Pulse Oximetry 93 94 11/16/19 21:45 11/16/19 21:46 11/16/19 22:00 Temperature 36.6 C Pulse Rate 84 88 84 Respiratory Rate 20 20 20 Blood Pressure 130/81 Pulse Oximetry 95 95 11/17/19 02:45 11/17/19 03:00 11/17/19 05:00 Temperature 36.3 C L Pulse Rate 87 83 77 Respiratory Rate 20 20 20 Blood Pressure 135/83 Pulse Oximetry 96 11/17/19 08:50 11/17/19 09:02 11/17/19 09:52 Temperature Pulse Rate 85 88 Respiratory Rate 20 20 Blood Pressure Pulse Oximetry 95 Intake/Output Intake/Output: Intake & Output 11/14/19 11/15/19 11/16/19 11/17/19 23:59 23:59 23:59 23:59 Intake Total 2019 2739 215 93 Output Total 2049 2649 3025 1200 Balance -30 90 -875 -270 Meds/Results Medications: Active Medications Generic Name Dose Route Start Last Admin Trade Name Freq PRN Reason Stop Dose Admin Albuterol 2.5 mg 11/13/19 15:19 Albuterol Sulf Neb 2.5mg/0.5ml INHALATION Q4HRT PRN Shortness Of Breath Albuterol 2.5 mg 11/16/19 14:00 11/17/19 08:50 Albuterol Sulf Neb 2.5mg/0.5ml INHALATION 2.5 mg Q6HRT ANT Administration Aspirin 81 mg 11/14/19 09:00 11/17/19 08:20 Aspirin Ec PO 81 mg QAM ANT Administration Benzonatate 100 mg 11/15/19 13:08 Tessalon Perles PO TID PRN Cough Budesonide 0.5 mg 11/16/19 20:00 11/17/19 08:50 Pulmicort Respule Neb INHALATION 0.5 mg Q12HRT ANT Administration Calcium Carbonate 200 mg 11/14/19 20:53 11/14/19 21:16 Tums PO 200 mg Q6H PRN Administration Indigestion Dornase Yassine 2.5 mg 11/13/19 20:00 11/17/19 08:50 Pulmozyme INHALATION 2.5 mg Q12HRT ANT Administration Enoxaparin Sodium 40 mg 11/13/19 21:00 11/16/19 21:47 Lovenox SUB-Q Not Given HS ANT Famotidine 20 mg 11/14/19 21:00 11/17/19 08:19 Pepcid PO 20 mg Q12HR ANT Administration Guaifenesin 600 mg 11/15/19 21:00 11/17/19 08:19 Mucinex 12 Hr Tab PO 600 mg Q12HR ANT Administration Ipratropium Valmy 0.5 mg 11/13/19 14:00 11/17/19 08:50 Atrovent Neb INHALATION 0.5 mg Q6HRT ANT Administration Prednisone 20 mg/ Prednisone
--- NOTE | 2019-11-17 14:11 | PM.IMPN ---
Progress Note: A&P Assessment and Plan (1) Acute exacerbation of chronic obstructive airways disease: Code(s): J44.1 - Chronic obstructive pulmonary disease with (acute) exacerbation Status: Acute Assessment and Plan: The patient reports a 45 pack-year smoking hx. She quit smoking on Wednesday 11/08 due to onset of dyspnea, dry cough, and wheezing since 11/07. She did use her daughter's inhalers with no significant improvement. She is not established with pulmonology and has no prior hx of hospitalization for COPD exacerbation. CXR revealed emphysema. CTA chest was ordered and revealed severe emphysema without evidence of PE. She continues to endorse dyspnea on exertion, productive cough, and SOB. She has been weaned to 1L O2. Pulmonology has been consulted and recommendations are greatly appreciated Use supplemental oxygen as needed to main oxygen saturation >92%, wean as tolerated Continue albuterol at decreased dose 2.5 mg and ipratropium Q6HRT Discontinue Azithromycin. Patient completed a 4 day course on 11/16. Begin PO Prednisone 30 mg. Continue 4-5 days per pulmonology recommendations. Solu-medrol was dc on 11/15. Continue supportive therapy including accapella, vest therapy, mucinex, benzonatate, and pulmozyme Continue pulmicort and switch to Symbicort 160/4.5 mcg 2 puffs Q12h via spacer device + Spiriva 18 mcg 1 puff daily at discharge Order 6 minute walk test prior to discharge to evaluate for home oxygen needs. Hopeful discharge tomorrow pending improvement of SOB. (2) Atherosclerosis: Code(s): I70.90 - Unspecified atherosclerosis Status: Acute Assessment and Plan: CTA chest revealed coronary artery calcification. She will need to follow-up outpatient as she has risk factors for CAD. Echo was performed to evaluate for HTN and reveals normal LV systolic function of 65-70% and grade 1 diastolic dysfunction. Continue ASA EC 81mg Lipid panel was normal Will defer decision to start a statin to her PCP (3) Leukocytosis: Code(s): D72.829 - Elevated white blood cell count, unspecified Status: Acute Assessment and Plan: WBC was 9,300 at presentation. She developed leukocytosis 11/13 at 21.6, likely due to high dose IV steroid therapy. She is afebrile. CXR was repeated and reveals emphysema without consolidation. WBC continues to trend down and is 14.5 today. Continue to monitor (4) DVT prophylaxis: Code(s): Z29.9 - Encounter for prophylactic measures, unspecified Status: Acute Assessment and Plan: Lovenox SQ is ordered but the patient has refused because she is very scared of needles. She is agreeable to SCDs. I discussed the risk of VTE while hospitalized and with her current condition/therapy. Continue SCDs Subjective Date/time seen: 11/17/19 14:11 Interval history: Date of service: 11/17/2019 Ms. Keith continues to endorse SOB with productive cough. She denies chest pain. She endorses FUNEZ when ambulating to the restroom. She denies dizziness or lightheadedness, fever, chills, nausea, or vomiting. She is urinating without difficulty. Her appetite is good and she is sleeping well. She has no additional concerns at this time. Review of Systems Review of Systems: Narrative: A 12 point review of systems was reviewed with pertinent positives and negatives as per HPI. Exam Narrative: Exam Narrative: Ms. Keith is examined alone today. She is a well nourished, thin, chronically ill-appearing female who is lying supine in bed. She appears comfortable and is in NARD. HR 77, BP 135/83, RR 20, T 97.4, 96% on 1L O2 Constitutional: NARD, comfortable, well nourished Neuro: awake, alert and oriented x4, speech clear, no focal neuro deficits noted HEENMT: normocephalic, atraumatic, EOMI, sclerae anicteric, moist oral mucosa Neck: supple, no lymphadenopathy Respiratory: diminished lung sounds bilaterally without crackles, wheezes, or rhon
--- NOTE | 2019-11-17 16:23 | HOMEO2EVAL ---
Home Oxygen Evaluation RC: Home Oxygen (O2) Evaluation Start: 11/17/19 12:23 Freq: ONCE Status: Active Protocol: RPE Activity Type Activity Date Activity User E-Sign Co-Sign Detail Recorded Client Recorded Date Recorded By Document 11/17/19 13:45 [email or web address] [email or web address] 11/17/19 16:22 JOE Document 11/17/19 13:50 [email or web address] [email or web address] 11/17/19 16:22 JOE 11/17/19 11/17/19 13:45 13:50 Home O2 Evaluation Test Phase Exercise Resting Oxygen Delivery Room Air Room Air Pulse Oximetry (90-100 %) 92 94 RC: Home Oxygen (O2) Evaluation Start: 11/17/19 14:44 Freq: ONCE Status: Active Protocol: RPE Activity Type Activity Date Activity User E-Sign Co-Sign Detail Recorded Client Recorded Date Recorded By Document 11/17/19 13:40 [email or web address] [email or web address] 11/17/19 16:22 JOE 11/17/19 13:40 Home O2 Evaluation Test Phase Resting Oxygen Delivery Room Air Pulse Oximetry (90-100 %) 94 Treatment Charges O2 Evaluation
--- NOTE | 2019-11-17 16:23 | PCRCNOTE ---
HOME O2 EVAL DONE, NO HOME O2 NEEDED.
[2019-11-18] VITALS (8 sets, daily range): BP systolic 136–152; BP diastolic 72–90; PULSE 81–91; RESP 18–20; TEMP 36.6–36.7; O2SAT 93–94
[2019-11-18] MEDS: ALBUTEROL SULFATE NEB 2.5 MG/0.5 ML INH INHALATION ×3 (01:43→14:50)
[2019-11-18] MEDS: IPRATROPIUM BR 0.02% INH SOLN 0.5 MG/2.5 ML VIAL INHALATION ×3 (01:43→14:50)
[2019-11-18 05:44] LABS: Blood Urea Nitrogen 19 mg/dL (7-17); Calcium 8.2 mg/dL (8.4-10.2); Carbon Dioxide 31 mmol/L (22-30); Chloride 103 mmol/L (98-107); Estimated CRCL calculation 50 ml/min; Estimated Glomerular Filt Rate > 60; Glucose 87 mg/dL (65-105); Potassium 3.7 mmol/L (3.4-5.0); Sodium 136 mmol/L (137-145)
[2019-11-18 05:46] LABS: Hematocrit 36.3 % (37.0-47.0); Hemoglobin 11.7 g/dL (12.0-15.0); Mean Corpuscular HGB Conc 32.2 g/dl (32-36); Mean Corpuscular Hemoglobin 29.8 pg (26-34); Mean Corpuscular Volume 92.6 fl (80-100); Mean Platelet Volume 11.5 fl (7.4-10.4); Platelet Count Result 243 k/mm3 (150-375); Red Blood Count 3.92 M/mm3 (4.2-5.4); Red Cell Distribution Width 13.9 % (11.5-14.5); White Blood Count 12.9 K/mm3 (4.5-10.0)
[2019-11-18] MEDS: ASPIRIN 81 MG ENTERIC TABLET PO (08:24)
[2019-11-18] MEDS: FAMOTIDINE 20 MG TABLET PO (08:24)
[2019-11-18] MEDS: predniSONE 20 MG, predniSONE 10 MG 30 MG PO (08:24)
[2019-11-18] MEDS: BUDESONIDE RESPULE NEB 0.5 MG/2 ML AMP INHALATION (09:02)
--- NOTE | 2019-11-18 13:56 | PM.DS ---
DS: Admitting Diagnosis Admitting Diagnosis Admitting Diagnosis: Chronic obstructive pulmonary disease with (acute) exacerbation DS: Discharge Diagnosis Discharge Diagnosis (1) Acute exacerbation of chronic obstructive airways disease: Code(s): J44.1 - Chronic obstructive pulmonary disease with (acute) exacerbation Status: Acute Assessment and Plan: CTA chest revealed severe emphysema without evidence of PE. She has a 45 pack-year smoking history, but has never had a COPD exacerbation before. She was weaned from O2 and determined to not require home oxygen based on walking trial with respiratory therapy. Per recommendations from pulmonology, she will continue a prednisone taper for 5 days, Symbicort, and Spiriva. (2) Atherosclerosis: Code(s): I70.90 - Unspecified atherosclerosis Status: Acute Assessment and Plan: CTA chest revealed coronary artery calcification. Echo was performed to evaluate for HTN and reveals normal LV systolic function of 65-70% and grade 1 diastolic dysfunction. She will need to follow-up outpatient as she has risk factors for CAD. She will continue aspirin therapy. (3) Leukocytosis: Code(s): D72.829 - Elevated white blood cell count, unspecified Status: Acute Assessment and Plan: She developed leukocytosis on 11/13 at 21.6, likely due to high dose IV steroid therapy. There was no evidence of infection and white count trended down steadily. WBC was 12.9 on day of discharge. (4) DVT prophylaxis: Code(s): Z29.9 - Encounter for prophylactic measures, unspecified Status: Acute Assessment and Plan: Patient refused subcutaneous Lovenox due to fear of needles. SCDs were employed. (5) Nicotine abuse: Code(s): Z72.0 - Tobacco use Status: Acute Assessment and Plan: I spent greater than 10 minutes discussing smoking cessation with the patient. She is very motivated to quit smoking. I supplied her with a short course of nicotine patches. She would eventually like to try Chantix and will follow-up with her primary care doctor to initiate this therapy. DS: Summary Hospital Course Reason for hospitalization: Shortness of breath Hospital Course: Date of admission: 11/12/2019 Date of discharge: 11/18/2019 Mary Kate Keith is a 74-year-old female and a 45 pack-year smoking history who presented to the hospital on 11/12/19 cough, and wheezing which had been ongoing for 4 days prior to presentation. At the onset of symptoms, she stopped smoking. She attempted to use her daughter's inhaler with no improvement. 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 She has never had a prior COPD exacerbation. At presentation, respiratory rate was 26, and she was requiring supplemental oxygen. CBC and BMP were within normal limits. BNP was very mildly elevated at 159, and chest x-ray demonstrated emphysema. She was admitted to the hospitalist service and seen in consultation by pulmonology. She was initiated on Solu-Medrol, albuterol, ipratropium, Acapella, vest therapy, Mucinex, benzonatate, Pulmozyme, and Pulmicort. These therapies improved her shortness of breath and oxygen was weaned. A home O2 trial demonstrated that she would not require home oxygen. Her shortness of breath improved, and she was able to tolerate activity. She was transitioned from IV to oral steroids which she will continue with taper as an outpatient, as well as Symbicort and Spiriva. She is motivated to quit smoking and she will continue to use nicotine patches. Given her improvement in symptoms and lack of supplemental oxygen requirement, she was determined to no longer require inpatient care. She will follow-up with her primary care doctor in 1 week to discuss her hospital stay. We discussed worrisome signs and symptoms for which she should return, and all of her questions were answered.
== END 2019-11-18 15:54 | disposition home health service (06) | DRG 192 ==
LOC: ANHED 14:31 → ANH3MED 15:20
PROVIDERS: Family Medicine; Physician Assistant; Admitting Provider Family Medicine; Emergency Provider General Practice; Visit Provider Physician Assistant
DX: J43.9 Emphysema, unspecified (principal); D72.829 Elevated white blood cell count, unspecified; I25.10 Atherosclerotic heart disease of native coronary artery without angina pectoris; R09.02 Hypoxemia; Z72.0 Tobacco use
CPT/HCPCS: 36415; 36600; 71045; 71275; 80048; 80061; 80076; 82375; 82805; 83036; 83050; 83605; 83735; 83880; 84484; 85025; 85027; 85610; 85730; 93005; 93306; 94618; 94640; 94667; 94668; 94669; 96374; 96376; 97110; 97116; 97161; 99285; A9270; G0378; J2930; J7512; Q9967

== ENCOUNTER 2020-01-16 06:11 | Inpatient (IN) | payer MEDICARE, SELFPAY ==
--- NOTE | ~2020-01-16 | XR_ITS ---
XR abdomen/kub 1V DATE: 01/17/2020 08:00 INDICATION: Ileus, small bowel obstruction TECHNIQUE: Portable supine AP views on 01/17/2020 at 0751 hours COMPARISON: 01/16/2020 portable upright AP view FINDINGS: There is no evidence of bowel obstruction. The psoas shadows are intact. No visceromegaly i s evident. NG tube in the mid to lower body of the stomach. There is diffuse osteopenia. There are compression deformities of the thoracic and lumbar spine. IMPRESSION: Nonspecific abdomen NG tube in stomach Reviewed, dictated and finalized at [facility]. Reviewed, dictated and finalized at [facility].
--- NOTE | ~2020-01-16 | CT_ITS ---
EXAMINATION: CT abdomen pelvis w con DATE: 01/16/2020 07:13 INDICATION: Abdominal pain. Vomiting. TECHNIQUE: Computed tomography (CT) of the abdomen and pelvis was performed with 100 cc Omnipaque 350 intravenous contrast. Automated exposure control and iterative reconstruction technique were employe d. Exam dose: 269.97 mGy-cm total exam DLP. COMPARISON: 02/09/2011 CT abdomen pelvis FINDINGS: Bilateral breast implants are noted. Emphysematous changes are noted. There is mild dependent atelectasis in the lower lobes. There are ca lcified pulmonary granulomas consistent with old granulomatous disease. Borderline heart size. Coronary artery calcifications. No pericardial or pleural effusion. The liver, gallbladder are unremarkable with the exception of a small approximately 7 mm hepatic cyst . Normal splenic size. No pancreatic mass lesion, calcification or ductal dilatation. Normal morpholo gy of the adrenal glands. There are occasional bilateral renal cysts measuring up to 12 mm on the right and left. No urinary tr act calculus or hydroureteronephrosis. The urinary bladder is unremarkable. Status post hysterectomy. There is extensive calcification of the abdominal aorta vessels calcification at the origins of the c eliac and superior mesenteric and renal arteries, calcification of the iliac and femoral arteries. No abdominal aortic aneurysm. No intraperitoneal or retroperitoneal or pelvic mass lesion or adenopathy or ascites is evident. There are fluid distended small bowel segments throughout most of the jejunum and ileum, measuring up to 3.2 cm diameter. The distal ileum is not dilated but does contain fluid and fecal-like contents t here is some interloop fluid in the right lower abdomen. No bowel wall thickening, pneumatosis or int raperitoneal free air is detected. IMPRESSION: Nonspecific extensive fluid-filled mildly dilated small bowel segments; differential esdras gnosis includes enteritis, ileus, chronic partial obstruction There is interval moderate anterior wedge compression fracture deformity of L1. There is prominent biconcave fracture deformity and loss of height of L3, increased conceivably since 02/09/2011. There is chronic compression fracture deformity of L4, present on 02/09/2011. Diffuse osteopenia. Reviewed, dictated and finalized at [facility]. Reviewed, dictated and finalized at [facility]. IMPRESSION: Nonspecific extensive fluid-filled mildly dilated small bowel segm ents; differential diagnosis includes enteritis, ileus, chronic partial obstruc tion There is interval moderate anterior wedge compression fracture deformity of L1. There is prominent biconcave fracture deformity and loss of height of L3, incre ased conceivably since 02/09/2011. There is chronic compression fracture deformity of L4, present on 02/09/2011. Diffuse osteopenia.
--- NOTE | ~2020-01-16 | XR_ITS ---
EXAMINATION: XR abdomen NG/feed tube insert EXAM DATE: 01/16/2020 11:23 INDICATION: Partial small bowel obstruction. TECHNIQUE: Frontal projection(s) of the abdomen for interpretation. Correlation is made to CT abdomen same date. FINDINGS: Feeding tube tip and side-port project over left upper quadrant, expected position of stom ach. There is nonobstructive upper abdominal bowel gas pattern (the somewhat distended small bowel se en on CT is mostly fluid filled and therefore would be inconspicuous on this study.) Some linear left basilar opacity most likely subsegmental atelectasis. There are mild bony degenerati ve changes. IMPRESSION: 1. Feeding tube in position. Reviewed, dictated and finalized at [facility].
[2020-01-16 06:11] VITALS: BP 133/77; PULSE 79; RESP 20; TEMP 36.8; O2SAT 95
--- NOTE | 2020-01-16 06:18 | ED.ABDPAIN ---
HPI - Abdominal Pain General Chief Complaint: Abdominal Pain <Hannah Chawla MD - Last Filed: 01/16/20 06:48> Stated Complaint: ABD CRAMPS <Hannah Chawla MD - Last Filed: 01/16/20 06:48> Time Seen by Provider: 01/16/20 10:32 <Hannah Chawla MD - Last Filed: 01/16/20 06:48> Source: patient and EMS <Hannah Chawla MD - Last Filed: 01/16/20 06:48> Mode of arrival: EMS <Hannah Chawla MD - Last Filed: 01/16/20 06:48> Limitations: no limitations <Hannah Chawla MD - Last Filed: 01/16/20 06:48> History of Present Illness HPI narrative: Patient is a 74-year-old with a history of COPD who presents for evaluation of abdominal pain. Patient reports pain in the upper abdomen described as sharp, intermittently stabbing in nature. Pain started yesterday and is associated with nausea and numerous episodes of nonbloody, nonbilious emesis. Patient denies fever or chills. She denies diarrhea, states she feels mildly bloated. Patient denies history of abdominal surgeries. She states she has had pain such as this in the past, but does not recall the diagnosis for her in the past. She denies any chest pain, palpitations, shortness of breath, back pain or shoulder pain. <Hannah Chawla MD - Last Filed: 01/16/20 06:48> Related Data Home Medications: Home Medications Medication Instructions Recorded Confirmed tiotropium bromide [Spiriva with 1 cap INHALATION DAILY 01/16/20 01/16/20 HandiHaler] <Hannah Chawla MD - Last Filed: 01/16/20 06:48> Allergies/Adverse Reactions: Allergies Allergy/AdvReac Type Severity Reaction Status Date / Time No Known Allergies Allergy Verified 01/16/20 06:19 <Hannah Chawla MD - Last Filed: 01/16/20 06:48> Review of Systems Review of Systems: Narrative: CONSTITUTIONAL: Denies fever, chills, or sweats. EYES: Denies visual changes, redness, or discharge. ENT: Denies rhinorrhea, congestion, sore throat, or otalgia. CARDIOVASCULAR: Denies chest pain, palpitations, or edema. RESPIRATORY: Denies cough or dyspnea. GASTROINTESTINAL: Reports abdominal pain, nausea and vomiting GENITOURINARY: Denies dysuria or hematuria. SKIN: Denies rash or itching. MUSCULOSKELETAL: Denies back pain, joint pain, or myalgia. NEUROLOGIC: Denies headache, numbness, or weakness. <Hannah Chawla MD - Last Filed: 01/16/20 06:48> [facility] Past Medical History Medical History: Medical History (Updated 01/16/20 @ 14:44 by Essie Hall PA-C) COPD with emphysema Coronary artery calcification Calcifications noted on chest CT in October 2019. Echocardiogram showed normal left ventricular systolic function with an ejection fraction of 65 to 70% as well as grade 1 diastolic dysfunction. Gastroesophageal reflux disease History of tobacco abuse 45 pack year smoking history, quit in October 2019. Lumbar compression fracture Obstructive sleep apnea Untreated for the past 4 years , as she stopped using her CPAP for unclear reasons. Osteopenia <Hannah Chawla MD - Last Filed: 01/16/20 06:48> Surgical History Surgical History: Surgical History (Updated 01/16/20 @ 14:40 by Essie Hall PA-C) History of bladder suspension procedure History of breast augmentation History of partial hysterectomy <Hannah Chawla MD - Last Filed: 01/16/20 06:48> Family History Family History: Family History Mother Family history of heart disease in male family member before age 55 Cerebrovascular accident Heart attack Sibling Family history of heart disease in male family member before age 55 Heart attack Cerebrovascular accident Transitional cell carcinoma Father Cerebrovascular accident <Hannah Chawla MD - Last Filed: 01/16/20 06:48> Social History Social History: Social History (Updated 01/16/20 @ 14:43 by Essie Hall PA-C) Social History: Surr
[2020-01-16] MEDS: SODIUM CHLORIDE 0.9% IV 1,000 ML 999 ML IV CONT ×2 (06:33→09:40)
[2020-01-16] MEDS: ONDANSETRON INJ 4 MG/2 ML VIAL IV PUSH ×2 (06:33→14:05)
[2020-01-16] MEDS: MORPHINE SULFATE 4 MG/ML INJ IV PUSH (06:33)
[2020-01-16] MEDS: FAMOTIDINE 20 MG/2 ML VIAL IV PUSH ×2 (06:34→21:57)
[2020-01-16] MEDS: DICYCLOMINE HCL INJ 20 MG/2 ML VIAL IM (06:34)
[2020-01-16 06:35] VITALS: BP 135/92; PULSE 86; RESP 20; O2SAT 94
[2020-01-16 06:37] LABS: Basophils Absolute Auto 0.1 K/mm3 (0.0-0.1); Basophils Percent Auto 0.4 % (0.2-1.2); Eosinophils Absolute Auto 0.2 K/mm3 (0-0.3); Hematocrit 45.5 % (37.0-47.0); Hemoglobin 14.5 g/dL (12.0-15.0); Immature Granulocyte Absolute 0.11 K/mm3 (0.00-0.031); Immature Granulocyte Percent A 0.6 % (0-0.5); Lymphocytes Absolute Auto 2.35 K/mm3 (0.9-3.2); Lymphocytes Percent Auto 12.9 % (18.3-44.2); Mean Corpuscular HGB Conc 31.9 g/dl (32-36); Mean Platelet Volume 10.7 fl (7.4-10.4); Monocytes Absolute Auto 1.2 K/mm3 (0.1-0.6); Monocytes Percent Auto 6.7 % (2.6-8.5); Neutrophils Absolute Auto 14.3 K/mm3 (1.3-6.7); Neutrophils Percent Auto 78.4 % (45.5-73.1); Platelet Count Result 387 k/mm3 (150-375); Red Blood Count 4.84 M/mm3 (4.2-5.4); Red Cell Distribution Width 14.4 % (11.5-14.5); White Blood Count 18.2 K/mm3 (4.5-10.0)
[2020-01-16 06:52] LABS: Alanine Aminotransferase 25 U/L (4-35); Albumin Level 4.7 g/dL (3.5-5.1); Alkaline Phosphatase 95 U/L (38-126); Anion Gap 12.5 mmol/L (7-16); Aspartate Amino Transferase 34 U/L (14-36); Bilirubin,Total 0.6 mg/dL (0.2-1.3); Blood Urea Nitrogen 17 mg/dL (7-17); Calcium 10.1 mg/dL (8.4-10.2); Carbon Dioxide 29 mmol/L (22-30); Chloride 98 mmol/L (98-107); Estimated Glomerular Filt Rate > 60; Glucose 137 mg/dL (65-105); Lipase 106 U/L (23-300); Potassium 4.5 mmol/L (3.4-5.0); Sodium 135 mmol/L (137-145)
[2020-01-16 07:21] LABS: Lactic Acid Reflex 1.5 mmol/L (0.7-2.1)
[2020-01-16 08:00] LABS: Add Urine Microscopic? YES; Amorphous Sediment Urine Few; Appearance Urine Cloudy (Clear); Bilirubin Urine Negative (Negative); Blood Urine Negative (Negative); Color Urine Yellow (Yellow); Glucose Urine UA Negative (Negative); Ketones Urine Negative (Negative); Leukocyte Esterase Ur Negative LEU/UL (Negative); Mucus Urine Rare /lpf; Nitrate Urine Negative (Negative); Protein Urine Negative (Negative); RBC Urine 0-2 /hpf (0-2); Specific Grav Ur 1.019 (1.001-1.035); Squamous Epithelial Cell Urine Occasional /hpf (Few); Urobilinogen Urine Negative mg/dL (<2.0)
[2020-01-16 08:14] VITALS: BP 101/73; PULSE 73; RESP 15; O2SAT 93
--- NOTE | 2020-01-16 13:06 | PC.NURSE ---
Called to give report to nurse. Was transferred to voice mail and left message
[2020-01-16 13:50] VITALS: BP 115/63; PULSE 68; RESP 19; TEMP 36.9; O2SAT 95
[2020-01-16 13:51] VITALS: BMI 21.8
[2020-01-16] MEDS: LACTATED RINGERS 1,000 ML 125 ML IV CONT ×2 (14:05→22:05)
--- NOTE | 2020-01-16 14:17 | ADMGEN ---
This patient, Mary Kate Keith, was admitted to 2 Medical Room 259-. Patient/family oriented to hospital policies and general routines including ID bracelet, bed and alarms, visiting hours, pain management, procedures, bathroom and other care routines, personal items, smoking policy, room service/diet, and visiting hours. Valuables list has been completed. Information on how to activate the Rapid Response Team has been discussed. Patient/Family are encouraged to report perceived risks to care and to ask questions if they do not understand what they are told or what they should do.
--- NOTE | 2020-01-16 14:30 | PM.IMHP ---
H&P: HPI History of Present Illness Chief complaint: Abdominal pain. Narrative: Mary Kate Keith is a 74-year-old female with GERD and severe COPD/emphysema who presented to the emergency department earlier today for evaluation of abdominal pain. She prepared chili for lunch yesterday and several hours after eating, she developed cramping in the periumbilical region. It seemed to improve somewhat with belching but continued to return with increased intensity. As the evening progressed, she developed severe nausea and reports several episodes of emesis, consisting of undigested chili, starting around 0400. associated symptoms include chills and generalized malaise. CT of the abdomen and pelvis showed nonspecific extensive fluid-filled, mildly dilated small bowel segments with a differential diagnosis to include enteritis, ileus, and chronic partial obstruction. An NG tube was placed in the emergency department which has helped with the cramping and nausea however she is complaining of pretty significant discomfort in her throat. No one else who consumed the chili has had similar symptoms. She has not had any loose stools as of yet. She has no history of ileus or small-bowel obstruction. No documented fever. She denies hematemesis. Review of Systems Review of Systems: Narrative: Twelve systems were reviewed with pertinent positives and negatives as per HPI. She denies sinus congestion, rhinorrhea, otalgia, and odynophagia. She is currently finishing a steroid taper for COPD exacerbation, which started on 01/04/2020. She was also treated with a Z-Vince for that as well eye. She has a chronic cough that is occasionally productive of light yellow phlegm, and that is unchanged.Her breathing has improved substantially with the prednisone taper and the addition of albuterol nebulizers. No recent travel or sick contacts. Except as documented, all other systems were reviewed and are negative. [facility] Past Medical History Medical History COPD with emphysema Coronary artery calcification Calcifications noted on chest CT in October 2019. Echocardiogram showed normal left ventricular systolic function with an ejection fraction of 65 to 70% as well as grade 1 diastolic dysfunction. Gastroesophageal reflux disease History of tobacco abuse 45 pack year smoking history, quit in October 2019. Lumbar compression fracture Obstructive sleep apnea Untreated for the past 4 years , as she stopped using her CPAP for unclear reasons. Osteopenia Surgical History Surgical History History of bladder suspension procedure History of breast augmentation History of partial hysterectomy Family History Family History Mother Family history of heart disease in male family member before age 55 Cerebrovascular accident Heart attack Sibling Family history of heart disease in male family member before age 55 Heart attack Cerebrovascular accident Transitional cell carcinoma Father Cerebrovascular accident Social History Social History (Updated 01/16/20 @ 21:24 by Essie Hall PA-C) Social History: Surrogate decision maker: matias Avelar. Code status: Full code. Years smoked: 63 Smoking status: Former smoker Tobacco type: cigarettes Second hand tobacco smoke exposure: No Smoking end date: 11/09/19 Additional smoking assessment comments: Smoked .75 packs per day but up to 1.5 - 2 packs per day for over a year. Alcohol intake: never Substance use: never Substance use type: does not use Additional living arrangements comments: She has an adopted 11 yo son Mitch, and another soon-to-be adopted son 5 yo Carlos who she is on the process of adopting. Son Valentino lives 1 house away. Additional occupation/education comments: Worked 40 years [employer], , raised 8 children on her o
[2020-01-16] MEDS: PHENOL/SOD PHENO SPRAY CHERRY (*BKC) 1 SPRAY MUCOUS MEM (19:21)
[2020-01-16 20:00] VITALS: BP 115/67; PULSE 63; RESP 22; TEMP 36.6; O2SAT 91
[2020-01-16 22:32] VITALS: PULSE 72
[2020-01-17 04:00] VITALS: BP 134/76; PULSE 81; RESP 20; TEMP 36.3; O2SAT 91
[2020-01-17 05:45] LABS: Basophils Absolute Auto 0.1 K/mm3 (0.0-0.1); Basophils Percent Auto 0.8 % (0.2-1.2); Eosinophils Absolute Auto 0.8 K/mm3 (0-0.3); Hematocrit 37.5 % (37.0-47.0); Hemoglobin 11.8 g/dL (12.0-15.0); Immature Granulocyte Absolute 0.06 K/mm3 (0.00-0.031); Immature Granulocyte Percent A 0.5 % (0-0.5); Lymphocytes Percent Auto 20.1 % (18.3-44.2); Mean Corpuscular HGB Conc 31.5 g/dl (32-36); Mean Corpuscular Hemoglobin 29.9 pg (26-34); Mean Corpuscular Volume 94.9 fl (80-100); Mean Platelet Volume 10.5 fl (7.4-10.4); Monocytes Absolute Auto 0.9 K/mm3 (0.1-0.6); Monocytes Percent Auto 7.4 % (2.6-8.5); Neutrophils Absolute Auto 7.7 K/mm3 (1.3-6.7); Neutrophils Percent Auto 64.2 % (45.5-73.1); Platelet Count Result 295 k/mm3 (150-375); Red Blood Count 3.95 M/mm3 (4.2-5.4); Red Cell Distribution Width 14.5 % (11.5-14.5)
[2020-01-17 06:32] LABS: Alanine Aminotransferase 16 U/L (4-35); Albumin Level 3.2 g/dL (3.5-5.1); Alkaline Phosphatase 65 U/L (38-126); Anion Gap 6.8 mmol/L (7-16); Aspartate Amino Transferase 27 U/L (14-36); Bilirubin,Total 0.7 mg/dL (0.2-1.3); Blood Urea Nitrogen 9 mg/dL (7-17); Calcium 8.2 mg/dL (8.4-10.2); Carbon Dioxide 29 mmol/L (22-30); Chloride 104 mmol/L (98-107); Estimated CRCL calculation 42 ml/min; Estimated Glomerular Filt Rate > 60; Glucose 94 mg/dL (65-105); Potassium 3.8 mmol/L (3.4-5.0); Sodium 136 mmol/L (137-145)
[2020-01-17] MEDS: FAMOTIDINE 20 MG/2 ML VIAL IV PUSH ×2 (08:36→20:12)
[2020-01-17] MEDS: PHENOL/SOD PHENO SPRAY CHERRY (*BKC) 1 SPRAY MUCOUS MEM (08:37)
[2020-01-17 14:00] VITALS: BP 108/63; PULSE 80; RESP 18; TEMP 36.6; O2SAT 95
--- NOTE | 2020-01-17 14:45 | PM.IMPN ---
Progress Note: A&P Assessment and Plan (1) Abdominal pain: Qualifiers: Abdominal location: upper abdomen, unspecified Qualified Code(s): R10.10 - Upper abdominal pain, unspecified Code(s): R10.9 - Unspecified abdominal pain Status: Acute Assessment and Plan: ----- Differential includes enteritis, ileus and partial obstruction. At this time enteritis is favored since her abdominal pain has resolved and she has bowel sounds. She has not had any abdominal surgeries which makes bowel obstruction less likely. X-ray from this morning was normal. she has not had any gas or bowel movements so we will clamp the NG tube and see how she does. She tolerates the clamp, will do clear liquids tonight. Continue antibiotics at time. Monitor symptoms. (2) Leukocytosis: Code(s): D72.829 - Elevated white blood cell count, unspecified Status: Acute Assessment and Plan: ----- Acute on chronic, the patient's white blood cell count is often elevated according to her labs. likely secondary to dehydration and possible infection. She has also been on a steroid taper which can influence this. (3) Gastroesophageal reflux disease: Code(s): K21.9 - Gastro-esophageal reflux disease without esophagitis Status: Acute Assessment and Plan: ----- Continue IV famotidine (4) COPD with emphysema: Code(s): J43.9 - Emphysema, unspecified Status: Acute Assessment and Plan: ----- lungs are clear today without wheezing. Steroids will be discontinued. Continue maintenance inhalers and nebulizers as per her home regimen. _ Time Spent With Patient Time with patient: 25 - 35 minutes Subjective Date/time seen: 01/17/20 14:45 Interval history: Pt is a 74 y/o here for abdominal pain with possible SBO. Patient was seen today with the NG tube intact. She denies nausea, vomiting and her abdominal pain has resolved. She does not like the NG tube and has throat pain but other than that she is doing okay. She had a caffeine headache this morning which resolved with Tylenol. She has not passed gas nor has she had a BM but she states she usually only has a bm every 2-4 days at baseline. Review of Systems Review of Systems: All systems reviewed & are unremarkable except as noted in HPI and below Exam Narrative: Exam Narrative: General: Well developed well nourished patient resting in bed in NAD HEENT: normocephalic, NG intact Neck: supple Neuro: Alert and oriented x4 CV:RRR Resp:CTA Abd: Soft, non distended. No pain to palpation. Positive bowel sounds Extremities: No swelling, erythema, or pain to palpation. Objective Data Vital Signs Vital Signs: Vital Signs - 24 hr 01/16/20 20:00 01/16/20 22:32 01/17/20 04:00 Temperature 97.9 F 97.4 F L Pulse Rate 63 72 81 Respiratory Rate 22 H 20 Blood Pressure 115/67 134/76 Pulse Oximetry 91 91 Intake/Output Intake/Output: Intake & Output 01/14/20 01/15/20 01/16/20 01/17/20 23:59 23:59 23:59 23:59 Intake Total 3050 760 Output Total 475 1200 Balance 2575 -440 Meds/Results Medications: Active Medications Generic Name Dose Route Start Last Admin Trade Name Freq PRN Reason Stop Dose Admin Albuterol 2.5 mg 01/16/20 20:55 Albuterol Sulf Neb 2.5 Mg/3 Ml INHALATION TID PRN shortness of breath or wheezing Budesonide/Formoterol Fumarate 2 puff 01/16/20 21:15 01/17/20 09:24 Symbicort 160-4.5 Mcg (*Sp) Inhaler INHALATION 2 puff Q12HRT ANT Administration Famotidine 20 mg 01/16/20 21:00 01/17/20 08:36 Pepcid Iv IV PUSH 20 mg Q12HR ANT Administration Lactated Ringer's 1,000 mls @ 75 mls/hr 01/16/20 11:30 01/17/20 08:40 Lr - Lactated Ringers Iv IV CONT 75 mls/hr .[id number] ANT Infusion Piperacillin/Tazobactam/Dextrose 3.375 gm in 50 mls @ 100 mls/hr 01/17/20 05:00 01/17/20 11:44 Zosyn 3.375 Gm/D5w 50ml Pm IVPB Infused Q6HR ANT
[2020-01-17] MEDS: LACTATED RINGERS 1,000 ML 75 ML IV CONT (15:07)
--- NOTE | 2020-01-17 18:56 | PC.NURSE ---
On 01/17/20, the license pending nurse, Mel Neil, provided care and completed [facility] documentation on this patient. I have reviewed the license pending nurse's documentation and agree with the findings.
[2020-01-17 19:57] VITALS: BP 113/88; PULSE 102; RESP 18; TEMP 36.5; O2SAT 93
[2020-01-17 21:14] VITALS: PULSE 80; RESP 20
[2020-01-18 04:58] VITALS: BP 128/73; PULSE 61; RESP 12; TEMP 36.5; O2SAT 96
[2020-01-18 05:49] LABS: Hematocrit 36.9 % (37.0-47.0); Hemoglobin 11.8 g/dL (12.0-15.0); Mean Corpuscular Volume 93.9 fl (80-100); Mean Platelet Volume 10.8 fl (7.4-10.4); Platelet Count Result 288 k/mm3 (150-375); Red Blood Count 3.93 M/mm3 (4.2-5.4); Red Cell Distribution Width 13.9 % (11.5-14.5); White Blood Count 8.4 K/mm3 (4.5-10.0)
[2020-01-18 06:11] LABS: Anion Gap 8.8 mmol/L (7-16); Blood Urea Nitrogen 8 mg/dL (7-17); Calcium 8.5 mg/dL (8.4-10.2); Carbon Dioxide 29 mmol/L (22-30); Chloride 106 mmol/L (98-107); Estimated CRCL calculation 42 ml/min; Estimated Glomerular Filt Rate > 60; Glucose 82 mg/dL (65-105); Potassium 3.8 mmol/L (3.4-5.0); Sodium 140 mmol/L (137-145)
[2020-01-18] MEDS: LACTATED RINGERS 1,000 ML 75 ML IV CONT (06:23)
[2020-01-18] MEDS: FAMOTIDINE 20 MG/2 ML VIAL IV PUSH (08:12)
[2020-01-18] MEDS: predniSONE 10 MG TABLET PO (08:12)
--- NOTE | 2020-01-18 12:01 | PM.DS ---
DS: Admitting Diagnosis Admitting Diagnosis Admitting Diagnosis: Upper abdominal pain, unspecified DS: Discharge Diagnosis Discharge Diagnosis (1) Ileus: Code(s): K56.7 - Ileus, unspecified Status: Acute Assessment and Plan: ----- patient presented to emergency room for abdominal pain and she had CT of her abdomen and pelvis which revealed nonspecific extensive fluid-filled mildly dilated small bowel segments differential including enteritis, ileus and chronic partial obstruction. The patient did not have any diarrhea throughout her stay. An NG tube was placed and her symptoms improved. This was able to be removed the next day and she tolerated a diet. She had a bowel movement before she left. Abdominal x-ray was normal the next day. I suspect this was an ileus as she has never had any abdominal surgeries and partial bowel obstruction seems less likely. Son at bedside states that she has a history of nonspecific abdominal pain that happens about every 6 months but is never led her to hospitalization. I suggest that she follow-up with the GI specialist and talk to them about getting a colonoscopy. (2) Abdominal pain: Qualifiers: Abdominal location: upper abdomen, unspecified Qualified Code(s): R10.10 - Upper abdominal pain, unspecified Code(s): R10.9 - Unspecified abdominal pain Status: Acute Assessment and Plan: ----- Resolved. See above. Leukocytosis improved with IV Zosyn. Patient discharged on Cipro andFlagyl (3) Leukocytosis: Code(s): D72.829 - Elevated white blood cell count, unspecified Status: Acute Assessment and Plan: ----- ikely secondary to dehydration, inflammatory response, and possible infection. She has also been on a steroid taper which can influence this. (4) Gastroesophageal reflux disease: Code(s): K21.9 - Gastro-esophageal reflux disease without esophagitis Status: Acute Assessment and Plan: ----- Continue IV famotidine (5) COPD with emphysema: Code(s): J43.9 - Emphysema, unspecified Status: Acute Assessment and Plan: ----- lungs are clear today without wheezing. Steroids will be discontinued. Continue maintenance inhalers and nebulizers as per her home regimen. (6) Lumbar compression fracture: Code(s): S32.000A - Wedge compression fracture of unspecified lumbar vertebra, initial encounter for closed fracture Status: Acute Assessment and Plan: ----- undetermined age. Patient states she has history of osteoporosis. It was suggested that she make an appointment with her primary care physician to get a bone density scan. she has no pain in the area DS: Summary Hospital Course Reason for hospitalization: abdominal pain Hospital Course: patient is a 74-year-old female who presented emergency room after [facility] for severe abdominal pain and intractable nausea and vomiting. Vitals in the ER temperature 98.2?, pulse 79, respiratory rate 20, blood pressure 133/77, pulse ox 95 on room air. White count initially 18.2, hemoglobin and hematocrit normal. BMP relatively normal. Lactic acid normal. Liver function tests normal. Lipase normal. CT abdomen and pelvis show nonspecific extensive fluid-filled mildly dilated small bowel segments differential including enteritis, ileus and chronic partial obstruction. Patient was started on IV Zosyn and an NG tube was placed. She was admitted to the hospitalist service and improved with that treatment. The next day her abdominal x-ray read as normal and the patient's symptoms had improved. The patient was able to tolerate a regular diet and she had a bowel movement the day of discharge. On discharge her abdominal x-ray was read as normal and the patient's symptoms had resolved. Please see above for further details. Patient was educated about the worrisome signs and symptoms come back to emergency room for was dis
[2020-01-18] MEDS: MAGNESIUM HYDROXIDE SUSP 30 ML UDC PO (12:17)
[2020-01-18] MEDS: polyethylene glycoL 3350 17 GM POWD.PACK PO (12:17)
[2020-01-18 14:00] VITALS: BP 140/85; PULSE 105; RESP 20; TEMP 36.8; O2SAT 95
[2020-01-18] MEDS: MINERAL OIL 30 ML UDC 15 ML PO (17:01)
== END 2020-01-18 17:59 | disposition home or self-care (01) | DRG 390 ==
LOC: ANHED 12:01 → ANH2MED 13:10
PROVIDERS: Emergency Medicine; Admitting Provider Family Medicine; Emergency Provider General Practice; PCP Physician Assistant; Visit Provider Physician Assistant
DX: K56.7 Ileus, unspecified (principal); G47.33 Obstructive sleep apnea (adult) (pediatric); J44.9 Chronic obstructive pulmonary disease, unspecified; K21.9 Gastro-esophageal reflux disease without esophagitis; E86.0 Dehydration; S32.000D Wedge compression fracture of unspecified lumbar vertebra, subsequent encounter for fracture with routine healing
CPT/HCPCS: 36415; 74018; 74177; 80048; 80053; 81001; 83605; 83690; 85025; 85027; 87040; 94640; 96361; 96372; 96374; 96375; 99285; A9270; G0378; J0131; J0500; J2270; J2405; J2543; J7030; J7120; J7512; Q9967

== ENCOUNTER 2020-01-23 17:13 | Observation (INO) | payer MEDICARE, SELFPAY ==
[2020-01-23] VITALS (10 sets, daily range): BP systolic 98–133; BP diastolic 72–85; PULSE 85–130; RESP 16–18; TEMP 36–36.8; O2SAT 95–97; BMI 20.9
--- NOTE | ~2020-01-23 | XR_ITS ---
EXAMINATION: XR chest 1V portable 01/23/2020 17:32 INDICATION: Chest pressure. Shortness of breath. COPD. PROCEDURE: AP portable chest COMPARISON: 11/15/2019 FINDINGS: The lungs are clear. The cardiomediastinal silhouette is within normal limits. There are no pleural effusions. There is no pneumothorax suspected. The lungs are hyperinflated which is cons istent with, but not diagnostic of chronic obstructive pulmonary disease. No acute osseous abnormalit y. IMPRESSION: 1: NO ACUTE CARDIOPULMONARY DISEASE. Reviewed, dictated and finalized at location A.
--- NOTE | ~2020-01-23 | CT_ITS ---
EXAMINATION: CT BRAIN W/O DATE: 01/23/2020 20:35 INDICATION: Syncope. Right lower extremity weakness. TECHNIQUE: Computed tomography (CT) of the head was performed without intravenous contrast. The dose- length product was 605.33 mGy-cm. The mA was adjusted according to patient size. Iterative reconstruc tion technique was employed. COMPARISON: CT dated 03/15/2019 FINDINGS: Mild generalized atrophy. There are scattered moderate periventricular and subcortical whit e matter changes, most likely related to small vessel ischemic disease (microangiopathy). No acute in tracranial hemorrhage, infarction, mass or No ventriculomegaly or midline shift. Midline sagittal supriya ges demonstrate a normal corpus callosum, craniovertebral junction and sella turcica. Basilar cistern s are patent. Paranasal sinuses and mastoids are pneumatized. No depressed skull fractures. IMPRESSION: 1. No acute intracranial abnormality. 2: Chronic age-related findings. Reviewed, dictated and finalized at location A.
--- NOTE | 2020-01-23 17:19 | ECG_ITS ---
Measurements Intervals [place] Rate: 106 P: 56 LA: 160 QRS: -28 QRSD: 71 T: 29 QT: 338 QTc: 450 Interpretive Statements SINUS TACHYCARDIA VENTRICULAR PREMATURE COMPLEX AND FREQUENT ATRIAL PREMATURE COMPLEXES BORDERLINE R WAVE PROGRESSION, ANTERIOR LEADS BASELINE ARTIFACT- I, II, III, AVL, AVF ABNORMAL ECG Electronically Signed On 01-23-2020 19:51:21 CDT by Wilton Torrez D.O.
[2020-01-23 17:40] LABS: Basophils Absolute Auto 0.1 K/mm3 (0.0-0.1); Basophils Percent Auto 0.8 % (0.2-1.2); Eosinophils Absolute Auto 1.1 K/mm3 (0-0.3); Eosinophils Percent Auto 10.5 % (0-4.4); Hematocrit 41.2 % (37.0-47.0); Hemoglobin 13.1 g/dL (12.0-15.0); Immature Granulocyte Absolute 0.02 K/mm3 (0.00-0.031); Immature Granulocyte Percent A 0.2 % (0-0.5); Lymphocytes Absolute Auto 1.91 K/mm3 (0.9-3.2); Lymphocytes Percent Auto 19.2 % (18.3-44.2); Mean Corpuscular HGB Conc 31.8 g/dl (32-36); Mean Corpuscular Volume 94.3 fl (80-100); Mean Platelet Volume 10.7 fl (7.4-10.4); Monocytes Percent Auto 9.8 % (2.6-8.5); Neutrophils Absolute Auto 5.9 K/mm3 (1.3-6.7); Neutrophils Percent Auto 59.5 % (45.5-73.1); Platelet Count Result 320 k/mm3 (150-375); Red Blood Count 4.37 M/mm3 (4.2-5.4); Red Cell Distribution Width 14.5 % (11.5-14.5)
--- NOTE | 2020-01-23 17:40 | ED.SOB ---
HPI - SOB/Dyspnea General Chief Complaint: Shortness of Breath/Dyspnea Stated Complaint: sob Time Seen by Provider: 01/23/20 17:30 History of Present Illness HPI Narrative: Sitting at home this evening when she suddenly felt pressure in her chest and became very short of breath. On my evaluation her symptoms have resolved. She is feeling better, but concerned that this will happen again if she is discharged. Her daughter believes that she needs home oxygen. Related Data Home Medications Medication Instructions Recorded Confirmed Spiriva with HandiHaler 1 cap INHALATION DAILY 01/16/20 01/23/20 Allergies Allergy/AdvReac Type Severity Reaction Status Date / Time No Known Allergies Allergy Verified 01/23/20 22:07 Review of Systems Review of Systems: All systems reviewed & are unremarkable except as noted in HPI and below Constitutional: Constitutional: Denies fever(s) Cardiovascular: Cardiovascular: Denies chest pain Respiratory: Respiratory: Reports dyspnea and Reports wheezing Gastrointestinal: Gastrointestinal: Denies abdominal pain Neurologic: Reports dizziness PMFSH Past Medical History Medical History COPD with emphysema Coronary artery calcification Calcifications noted on chest CT in October 2019. Echocardiogram showed normal left ventricular systolic function with an ejection fraction of 65 to 70% as well as grade 1 diastolic dysfunction. Gastroesophageal reflux disease History of tobacco abuse 45 pack year smoking history, quit in October 2019. Lumbar compression fracture Obstructive sleep apnea Untreated for the past 4 years , as she stopped using her CPAP for unclear reasons. Osteopenia Surgical History Surgical History History of bladder suspension procedure History of breast augmentation History of partial hysterectomy Family History Family History Mother Family history of heart disease in male family member before age 55 Cerebrovascular accident Heart attack Sibling Family history of heart disease in male family member before age 55 Heart attack Cerebrovascular accident Transitional cell carcinoma Father Cerebrovascular accident Social History Social History Social History: Surrogate decision maker: matias Avelar. Code status: Full code. Smoking packs per day: 2 Smoking cigarettes per day: 40.0 Years smoked: 62 Smoking pack-years: 124.00 Smoking status: Former smoker Tobacco type: cigarettes Second hand tobacco smoke exposure: No Smoking end date: 11/13/19 Additional smoking assessment comments: Smoked .75 packs per day but up to 1.5 - 2 packs per day for over a year. Alcohol intake: never Substance use: never Substance use type: does not use Additional living arrangements comments: She has an adopted 11 yo son Mitch, and another soon-to-be adopted son 5 yo Carlos who she is on the process of adopting. Son Valentino lives 1 house away. Additional occupation/education comments: Worked 40 years [employer], , raised 8 children on her own. Gender identity (if verbalized by the patient): Female Sexual Orientation (if Verbalized by the Patient): Straight or Heterosexual Spiritual care concerns: No Exam Const: General: healthy appearing, no acute distress and alert Orientation/consciousness: patient oriented x3 HENMT: Head: normal to inspection Neck: Neck: normal visual inspection and no lymphadenopathy Chest: Chest palpation & inspection: no tenderness Resp: Effort & Inspection: normal respiratory effort Auscultation: clear to auscultation bilaterally, no rales, no rhonchi and no wheezes Cardio: Jugular venous distension: no JVD Rate: tachycardic Rhythm: regular rhythm Heart sounds: no murmurs GI: Inspection: non-diste
[2020-01-23 17:51] LABS: Anion Gap 10.8 mmol/L (7-16); Blood Urea Nitrogen 10 mg/dL (7-17); Calcium 9.1 mg/dL (8.4-10.2); Carbon Dioxide 24 mmol/L (22-30); Chloride 109 mmol/L (98-107); Estimated CRCL calculation 42 ml/min; Estimated Glomerular Filt Rate > 60; Glucose 98 mg/dL (65-105); Potassium 3.8 mmol/L (3.4-5.0); Sodium 140 mmol/L (137-145)
[2020-01-23 18:55] LABS: Alveolar/Arterial O2 Gradient 46.7 mmHg; Base Excess ABG -2.4 mEq/l (+/-2.0); Fractional Inspired Oxygen 21 %; Oxygen Content ABG 18.5 %vol (16.0-22.0); Oxygen Saturation ABG 95.1 % (95.0-100.0); Oxyhemoglobin 94.1 % THb (90.0-100.0); PCO2 ABG 28.3 mmHg (35.0-45.0); PO2 ABG 69.1 mmHg (80.0-100.0); PO2 FiO2 Ratio Arterial Blood 3.29 %; pH ABG 7.467 (7.350-7.450)
[2020-01-23 18:56] LABS: Device ROOM AIR; Modified Allen's Test Pass; Site Drawn LEFT RADIAL
--- NOTE | 2020-01-23 18:59 | ECG_ITS ---
Measurements Intervals [place] Rate: 99 P: 50 RI: 162 QRS: -19 QRSD: 74 T: -30 QT: 391 QTc: 503 Interpretive Statements SINUS RHYTHM FREQUENT ATRIAL AND VENTRICULAR PREMATURE COMPLEXES BORDERLINE T WAVE ABNORMALITY- INFERIOR LEADS BASELINE ARTIFACT- I, II, III, AVR, AVL, V1, V3 ABNORMAL ECG Electronically Signed On 01-23-2020 19:52:26 CDT by Wilton Torrez D.O.
[2020-01-23] MEDS: dilTIAZem HCl INJ 25 MG/5 ML VIAL 10 MG IV PUSH (19:07)
[2020-01-23 19:24] LABS: Magnesium 2.4 mg/dL (1.6-2.3); Phosphorus 2.6 mg/dL (2.5-4.5)
--- NOTE | 2020-01-23 19:24 | PC.NURSE ---
report received at this time. pt resting on stretcher in NAD. denies any needs/concerns. family remains at bedside. denies needs/concerns.
[2020-01-23 19:35] LABS: Troponin I < 0.012 ng/mL (0.000-0.034)
--- NOTE | 2020-01-23 19:56 | PM.IMHP ---
H&P: HPI History of Present Illness Date/Time: 01/23/20 19:56 Chief complaint: Passed out at home today+ Narrative: This is a pleasant 74 year old Caucsian female with known COPD and GERD who was just discharged from our Hospitalist service this past week after she was treated for an ileus and now returned to the hospital with a complaint of passing out at home today for about 1 minute duration. The patient is known to have had brief episodes of passing out preceded by a prodrome of dizziness and sweatiness for years and she has noticed that over the past few months she has started to develop intermittent chest tightness that also lasts only for a few moments. Today while she was at sitting in a chair she again had her usual prodrome of dizziness and diaphoresis but also experienced chest tightness and then passed out for about 1 minute. Her granddaughter witnessed the event and denies seeing any seizure like activity. The patient did not lose urine or bite her tongue. While she was in the ER tonight she has had multiple episodes of chest tightness and had another brief episode where she thought she was going to pass out and developed tachycardia which appeared to possibly be atrial fibrillation on telemetry with ectopy. The patient denies any history of arryhtmias, known heart disease or previous strokes. She also does report blurry vision today which she states is new for her. She denies any other focal symptoms but on exam I found that the patient does have RLE weakness. She also denies any fevers, headache, neck stiffness, cough, sore throat, abdominal pain, nausea, vomiting, diarrhea, rectal bleeding, lower extremity pain or swelling. She recently finished a course of antibiotics that was started during her most recent hospitalization. We have been asked to admit the patient to the hospital for further workup. Review of Systems Review of Systems: All systems reviewed & are unremarkable except as noted in HPI and below PMFSH Past Medical History Medical History COPD with emphysema Coronary artery calcification Calcifications noted on chest CT in October 2019. Echocardiogram showed normal left ventricular systolic function with an ejection fraction of 65 to 70% as well as grade 1 diastolic dysfunction. Gastroesophageal reflux disease History of tobacco abuse 45 pack year smoking history, quit in October 2019. Lumbar compression fracture Obstructive sleep apnea Untreated for the past 4 years , as she stopped using her CPAP for unclear reasons. Osteopenia Surgical History Surgical History History of bladder suspension procedure History of breast augmentation History of partial hysterectomy Family History Family History Mother Family history of heart disease in male family member before age 55 Cerebrovascular accident Heart attack Sibling Family history of heart disease in male family member before age 55 Heart attack Cerebrovascular accident Transitional cell carcinoma Father Cerebrovascular accident Social History Social History Social History: Surrogate decision maker: matias Avelar. Code status: Full code. Smoking packs per day: 2 Smoking cigarettes per day: 40.0 Years smoked: 62 Smoking pack-years: 124.00 Smoking status: Former smoker Tobacco type: cigarettes Second hand tobacco smoke exposure: No Smoking end date: 11/13/19 Additional smoking assessment comments: Smoked .75 packs per day but up to 1.5 - 2 packs per day for over a year. Alcohol intake: never Substance use: never Substance use type: does not use Additional living arrangements comments: She has an adopted 11 yo son Mitch, and another soon-to-be adopted son 5 yo Carlos who she is on the process of adopting. Son Valentino lives 1
--- NOTE | 2020-01-23 21:48 | ADMGEN ---
This patient, Mary Kate Keith, was admitted to IMU Room 231-01 on 01/23/20 at 2104. Patient/family oriented to hospital policies and general routines including ID bracelet, bed and alarms, visiting hours, pain management, procedures, bathroom and other care routines, personal items, smoking policy, room service/diet, and visiting hours. Valuables list has been completed. Information on how to activate the Rapid Response Team has been discussed. Patient/Family are encouraged to report perceived risks to care and to ask questions if they do not understand what they are told or what they should do.
[2020-01-23 22:03] LABS: Troponin I < 0.012 ng/mL (0.000-0.034)
[2020-01-24] VITALS (21 sets, daily range): BP systolic 99–122; BP diastolic 61–97; PULSE 75–99; RESP 16–22; TEMP 36–37.1; O2SAT 95–97
[2020-01-24] MEDS: IPRATROPIUM BR 0.02% INH SOLN 0.5 MG/2.5 ML VIAL INHALATION ×3 (01:08→21:11)
[2020-01-24 01:33] LABS: Basophils Absolute Auto 0.1 K/mm3 (0.0-0.1); Basophils Percent Auto 0.9 % (0.2-1.2); Eosinophils Percent Auto 10.6 % (0-4.4); Hematocrit 39.1 % (37.0-47.0); Hemoglobin 12.3 g/dL (12.0-15.0); Immature Granulocyte Absolute 0.03 K/mm3 (0.00-0.031); Immature Granulocyte Percent A 0.3 % (0-0.5); Lymphocytes Absolute Auto 2.03 K/mm3 (0.9-3.2); Lymphocytes Percent Auto 21.3 % (18.3-44.2); Mean Corpuscular HGB Conc 31.5 g/dl (32-36); Mean Corpuscular Hemoglobin 29.6 pg (26-34); Mean Corpuscular Volume 94.2 fl (80-100); Mean Platelet Volume 10.7 fl (7.4-10.4); Monocytes Percent Auto 10.2 % (2.6-8.5); Neutrophils Absolute Auto 5.4 K/mm3 (1.3-6.7); Neutrophils Percent Auto 56.7 % (45.5-73.1); Platelet Count Result 318 k/mm3 (150-375); Red Blood Count 4.15 M/mm3 (4.2-5.4); Red Cell Distribution Width 14.5 % (11.5-14.5); White Blood Count 9.5 K/mm3 (4.5-10.0)
[2020-01-24 01:46] LABS: Blood Urea Nitrogen 8 mg/dL (7-17); Calcium 8.6 mg/dL (8.4-10.2); Carbon Dioxide 24 mmol/L (22-30); Chloride 109 mmol/L (98-107); Estimated CRCL calculation 53 ml/min; Estimated Glomerular Filt Rate > 60; Glucose 110 mg/dL (65-105); Sodium 138 mmol/L (137-145)
[2020-01-24 01:58] LABS: Troponin I < 0.012 ng/mL (0.000-0.034)
[2020-01-24] MEDS: ENOXAPARIN 60 MG/0.6 ML SYRINGE 55 MG SUB-Q ×2 (04:48→17:30)
--- NOTE | 2020-01-24 12:25 | PM.IMPN ---
Progress Note: A&P Assessment and Plan (1) Syncope: Qualifiers: Syncope type: unspecified Qualified Code(s): R55 - Syncope and collapse Code(s): R55 - Syncope and collapse Status: Acute Assessment and Plan: r/o Cardiogenic syncope - Admit to IMU Echocardiogram. Carotid doppler U/S in am. TRop x3 are negative (2) Weakness of right lower extremity: Code(s): R29.898 - Other symptoms and signs involving the musculoskeletal system Status: Acute Assessment and Plan: r/o acute CVA - We will check a STAT CT Brain w/o contrast that has not been obtained yet as the patient seems to have focal weakness. Neurochecks. She isn't sure when she was last at her baseline and is clearly not a candidate for tPA therapy at this time. We will consider MRI brain and Neurology consultation. ASA therapy once brain CT comes back. (3) Tachycardia: Code(s): R00.0 - Tachycardia, unspecified Status: Acute Assessment and Plan: r/o tachycarrythmia. (4) Chest pain: Qualifiers: Chest pain type: unspecified Qualified Code(s): R07.9 - Chest pain, unspecified Code(s): R07.9 - Chest pain, unspecified Status: Acute Assessment and Plan: r/o, anxiety, arrhythmia. Cardiology consultation. (5) COPD with emphysema: Qualifiers: Emphysema type: unspecified Qualified Code(s): J43.9 - Emphysema, unspecified Code(s): J43.9 - Emphysema, unspecified Status: Chronic Assessment and Plan: On xopenox nebuliser (6) Gastroesophageal reflux disease: Qualifiers: Esophagitis presence: esophagitis presence not specified Qualified Code(s): K21.9 - Gastro-esophageal reflux disease without esophagitis Code(s): K21.9 - Gastro-esophageal reflux disease without esophagitis Status: Acute Assessment and Plan: PPI therapy. Subjective Date/time seen: 01/24/20 12:25 Interval history: 74 year old Caucsian female with known COPD and GERD who was just discharged from our Hospitalist service this past week after she was treated for an ileus. Pt states she passed out again. Pt complains of mild chest pain and appears very SOB and wheezy in the room. TRopx3 are negative Review of Systems Review of Systems: All systems reviewed & are unremarkable except as noted in HPI and below Constitutional: Comments: syncope , SOB wheezy, chest pain central mild Exam Const: General: ill appearing and tired appearing Nutritional Appearance: overweight Orientation/consciousness: oriented to person HENMT: Head: normal to inspection Resp: Effort & Inspection: no respiratory distress Auscultation: wheezes Cardio: Rate: regular rate Rhythm: regular rhythm GI: Inspection: normal to inspection GI Palp: No abdominal tenderness, No Guarding due to palpation present (GI) and No Hepatomegaly present Auscultation: normal bowel sounds Neuro: General: oriented to person Objective Data Vital Signs Vital Signs: Vital Signs - 24 hr 01/23/20 17:12 01/23/20 17:18 01/23/20 17:42 Temperature 36.8 C Pulse Rate 107 H 112 H 108 H Respiratory Rate 18 17 Blood Pressure 133/83 124/85 Pulse Oximetry 96 96 01/23/20 19:06 01/23/20 19:08 01/23/20 21:00 Temperature Pulse Rate 130 H 118 H 108 H Respiratory Rate 18 16 Blood Pressure 124/85 124/85 98/72 L Pulse Oximetry 97 95 01/23/20 21:09 01/23/20 21:10 01/23/20 21:20 Temperature 36.0 C L Pulse Rate 100 100 112 H Respiratory Rate 16 16 Blood Pressure 120/80 Pulse Oximetry 97 97 01/23/20 22:00 01/24/20 00:00 01/24/20 01:08 Temperature 36.1 C L Pulse Rate 85 77 99 Respiratory Rate 16 20 Blood Pressure 99/63 L Pulse Oximetry 95 01/24/20 01:18 01/24/20 02:00 01/24/20 04:00 Temperature 36.6 C Pulse Rate 92 82 99 Respiratory Rate 20 16 Blood Pressure 103/79 Pulse Oximetry 95 01/24/20 06:00 01/24/20 07:35 01/24/20 08:00 Te
--- NOTE | 2020-01-24 12:47 | PM.CNCAR ---
Assessment and Plan Assessment and plan (1) Chest pain: Qualifiers: Chest pain type: unspecified Qualified Code(s): R07.9 - Chest pain, unspecified Code(s): R07.9 - Chest pain, unspecified Status: Acute Assessment and Plan: concerning for unstable angina. She has coronary calcifications seen on the CT scan. She has chest tightness/heaviness with exertion such as climbing up stairs. She has several risk factors for coronary disease including former smoker, age, family history of heart disease. Lipid status is not known. Start aspirin 81 mg p.o. daily, rosuvastatin 20 mg p.o. daily, will check a lipid panel. 2D echocardiogram Doppler was also ordered. Will keep NPO after midnight for coronary angiogram to define her coronary anatomy. Cardiac catheterization tomorrow. (2) Tachycardia: Code(s): R00.0 - Tachycardia, unspecified Status: Acute Assessment and Plan: looks like SVT and probably atrial tachycardia. Cannot exclude multi focal atrial tachycardia. RR intervals appear regular and I do not think she is going in and out of atrial fibrillation. Will keep on telemetry though. Will discontinue IV diltiazem and start her on oral diltiazem at 30 mg p.o. q.8 hours and up titrate as needed and eventual transition to oral diltiazem. Will avoid beta-karsten at this point given her significant lung disease (3) Coronary artery calcification: Code(s): I25.10 - Atherosclerotic heart disease of deering coronary artery without angina pectoris; I25.84 - Coronary atherosclerosis due to calcified coronary lesion Status: Acute Assessment and Plan: as detailed above (4) COPD with exacerbation: Code(s): J44.1 - Chronic obstructive pulmonary disease with (acute) exacerbation Status: Acute Assessment and Plan: pulmonology to see (5) History of tobacco abuse: Code(s): Z87.891 - Personal history of nicotine dependence Status: Acute (6) [place] (obstructive sleep apnea): Code(s): G47.33 - Obstructive sleep apnea (adult) (pediatric) Status: Acute (7) Syncope: Qualifiers: Syncope type: unspecified Qualified Code(s): R55 - Syncope and collapse Code(s): R55 - Syncope and collapse Status: Acute Assessment and Plan: Probably related to tachyarrhythmia. Will likely need electrophysiology evaluation as an outpatient for possible ablation. History of Present Illness History of Present Illness Consult date/time: 01/24/20 12:47 Requesting physician: Marcelino Fowler DO Consult reason: chest pain and Other (Syncope) Reason For Visit: Passed out at home today+ Narrative: date of service 01/24/20 Reason for consultation: Syncope, dizziness, chest pain History: Patient is a 74-year-old female who had seen Dr. August in the remote past but does not follow with Cardiology at this point. Patient has a longstanding history of syncope dizziness and shortness of breath. Worsened over the past couple of years in particular. She describes shortness of breath is constant and she was diagnosed with severe emphysema/ COPD. She has a significant smoking history but recently quit. Reason for hospitalization is because of a syncopal episode as well as chest pain. Reportedly patient passed out at home for about 1 minutes yesterday. She did have some dizziness and sweatiness as well as palpitations prior to passing out. She had no injury. There was no seizure-like activity. She also has some episodes of chest tightness at the time of her syncopal episodes. She also has been having chest tightness/heaviness with exertion. This is a relatively new issue that is occurring whenever she is climbing up a flight of stairs. More recently she states that even with just 1 flight of stairs she will have severe chest pain that does not radiate but will last 10-15 minutes at a time and improved with rest. It is associated nausea,
[2020-01-24 13:22] LABS: Cholesterol 168 mg/dL (0-200); HDL Direct 60 mg/dL; Triglycerides 100 mg/dL (<150)
[2020-01-24 13:33] LABS: LDL Cholesterol Direct 85 mg/dL
[2020-01-24] MEDS: ASPIRIN 81 MG ENTERIC TABLET PO (14:48)
[2020-01-24] MEDS: dilTIAZem HCL 30 MG TABLET PO ×2 (17:30→23:06)
[2020-01-24] MEDS: ACETAMINOPHEN 325 MG TABLET 650 MG PO (19:58)
[2020-01-25] VITALS (31 sets, daily range): BP systolic 92–124; BP diastolic 58–78; PULSE 68–98; RESP 14–22; TEMP 36.1–36.7; O2SAT 93–99
--- NOTE | 2020-01-25 | ECHO_ITS ---
Patient Info Name: Mary Kate Keith Age: 74 years : 1945 Gender: Female Ht: 64 in Wt: 126 lbs BSA: 1.61 m2 HR: 86 bpm BP: 114 / 71 mmHg Heart Rhythm: Sinus Rhythm Technical Quality: Good Exam Date: 01/25/2020 2:38 PM Exam Location: [facility] Patient Status: Inpatient Admit Date: 01/23/2020 Staff Ordering Physician: Tremaine Mane MD Psychology Clinician: Vincenzo Hernandes, TIFFANIECS, RT Attending Provider: Fly Sherman MD Referring Physician: Alhaji PERALTA; Exam Type: CA echo doppler color flow Study Info Indications R55 - Syncope and collapse R07.89 - Other chest pain Complete two-dimensional, color flow and Doppler transthoracic echocardiogram is performed. Summary 1. Left ventricular chamber dimension is normal. 2. Left ventricular systolic function is normal, estimated at 60-65%. 3. There is mild aortic valve sclerosis. 4. Compared with the examination from 2 months ago there is nothing different. Left Ventricle Left ventricular chamber dimension is normal. Left ventricular systolic function is normal, estimated at 60-65%. The left ventricular diastolic function is grade I diastolic dysfunction. Right Ventricle Right ventricular chamber dimension is normal. Left Atria Left atrial chamber dimension is normal. Right Atria Right atrial chamber dimension is normal. Aortic Valve The aortic valve is trileaflet. There is mild aortic valve sclerosis. Pulmonic Valve The pulmonic valve is not well visualized. Mitral Valve The mitral valve has normal leaflets. Tricuspid Valve The tricuspid valve leaflets are normal. Pericardium/Pleural The pericardium appears normal. Aorta The aortic root size at the sinus of Valsalva is normal. Left Ventricular Outflow Tract Name Value Normal LVOT 2D LVOT Diameter 2.1 cm LVOT Doppler LVOT Peak Gradient 3 mmHg LVOT Mean Gradient 2 mmHg LVOT VTI 17 cm LVOT VTI/AV VTI Ratio 0.9 LVOT Stroke Volume 58 ml LVOT CO 5.0 l/min LVOT CI 3.1 l/min/m2 Mitral Valve Name Value Normal MV Doppler MV Decel Banner 181 cm/s2 MV PHT 91 ms MV Area (PHT) 2.4 cm2 4.0-5.0 MV Diastolic Function MV E Peak Velocity 56 cm/s MV A Peak Velocity 68 cm/s MV E/A 0.8 MV Decel Time 312 ms Tricuspid Valve Name
[2020-01-25] MEDS: IPRATROPIUM BR 0.02% INH SOLN 0.5 MG/2.5 ML VIAL INHALATION ×5 (02:35→20:38)
--- NOTE | 2020-01-25 04:37 | PC.NURSE ---
am dose of lovenox not given due to cardiac cath this am.
[2020-01-25] MEDS: dilTIAZem HCL 30 MG TABLET PO ×4 (05:29→23:14)
[2020-01-25] MEDS: ROSUVASTATIN 10 MG TABLET 20 MG PO (08:26)
[2020-01-25] MEDS: ASPIRIN 81 MG ENTERIC TABLET PO (08:26)
[2020-01-25 09:21] LABS: Basophils Absolute Auto 0.1 K/mm3 (0.0-0.1); Basophils Percent Auto 1.1 % (0.2-1.2); Eosinophils Absolute Auto 0.6 K/mm3 (0-0.3); Eosinophils Percent Auto 9.4 % (0-4.4); Hematocrit 41.4 % (37.0-47.0); Hemoglobin 13.1 g/dL (12.0-15.0); Immature Granulocyte Absolute 0.01 K/mm3 (0.00-0.031); Immature Granulocyte Percent A 0.2 % (0-0.5); Lymphocytes Absolute Auto 1.78 K/mm3 (0.9-3.2); Lymphocytes Percent Auto 28.3 % (18.3-44.2); Mean Corpuscular HGB Conc 31.6 g/dl (32-36); Mean Platelet Volume 10.7 fl (7.4-10.4); Monocytes Absolute Auto 0.7 K/mm3 (0.1-0.6); Monocytes Percent Auto 10.4 % (2.6-8.5); Neutrophils Absolute Auto 3.2 K/mm3 (1.3-6.7); Neutrophils Percent Auto 50.6 % (45.5-73.1); Platelet Count Result 293 k/mm3 (150-375); Red Blood Count 4.36 M/mm3 (4.2-5.4); Red Cell Distribution Width 14.6 % (11.5-14.5); White Blood Count 6.3 K/mm3 (4.5-10.0)
[2020-01-25 09:33] LABS: Magnesium 2.3 mg/dL (1.6-2.3)
[2020-01-25 09:34] LABS: Anion Gap 8.7 mmol/L (7-16); Blood Urea Nitrogen 10 mg/dL (7-17); Calcium 8.9 mg/dL (8.4-10.2); Carbon Dioxide 25 mmol/L (22-30); Chloride 109 mmol/L (98-107); Estimated CRCL calculation 47 ml/min; Estimated Glomerular Filt Rate > 60; Glucose 93 mg/dL (65-105); Potassium 4.7 mmol/L (3.4-5.0); Sodium 138 mmol/L (137-145)
--- NOTE | 2020-01-25 11:22 | WPDMODSED ---
Moderate Sedation Note-Pt Data Patient Data Diagnosis: SVT with chest pain COPD Present Complaint: 74-year-old woman who presented with chest pain found to be in rapid SVT which was terminated with diltiazem. She also provides a history of exertional chest pain. Principal comorbidity is significant COPD related to a longstanding history of smoking. Procedure to be performed/Plan: Left heart catheterization Allergies Allergy/AdvReac Type Severity Reaction Status Date / Time No Known Allergies Allergy Verified 01/23/20 22:07 Home Medications Medication Instructions Recorded Confirmed Type albuterol sulfate 1 inhalation INHALATION Q4-6H PRN 11/18/19 01/23/20 Rx #1 each budesonide-formoterol [Symbicort] 2 puff INHALATION Q12H #6 gm 11/18/19 01/23/20 Rx albuterol sulfate 2.5 mg INHALATION TID PRN #180 ml 01/04/20 01/23/20 Rx Spiriva with HandiHaler 1 cap INHALATION DAILY 01/16/20 01/23/20 History Current Medications: Active Medications Acetaminophen (Tylenol Tablet) 650 mg PO Q4H PRN PRN Reason: Mild Pain (1-3) or Fever Last Admin: 01/24/20 19:58 Dose: 650 mg Documented by: Aspirin (Aspirin Ec) 81 mg PO QAM [facility] Last Admin: 01/25/20 08:26 Dose: 81 mg Documented by: Budesonide/Formoterol Fumarate (Symbicort 160-4.5 Mcg (*Sp) Inhaler) 2 puff INHALATION Q12HRT [facility] Last Admin: 01/25/20 09:04 Dose: 2 puff Documented by: Diltiazem HCl (Cardizem Tab) 30 mg PO Q6HR [facility] Last Admin: 01/25/20 05:29 Dose: 30 mg Documented by: Enoxaparin Sodium (Lovenox) 55 mg SUB-Q Q12H [facility] Last Admin: 01/25/20 04:36 Dose: Not Given Documented by: Ipratropium Corona (Atrovent Neb) 0.5 mg INHALATION Q6HRT [facility] Last Admin: 01/25/20 09:02 Dose: 0.5 mg Documented by: Levalbuterol HCl (Xopenex 1.25 Mg/0.5 Ml) 1.25 mg INHALATION Q6HRT [facility] Last Admin: 01/25/20 09:02 Dose: 1.25 mg Documented by: Rosuvastatin Calcium (Crestor) 20 mg PO QAM [facility] Last Admin: 01/25/20 08:26 Dose: 20 mg Documented by: Sedation/Anesthesia: No previous sedation/anesthesia problems (including family history). [facility] Past Medical History Medical History COPD with emphysema Coronary artery calcification Calcifications noted on chest CT in October 2019. Echocardiogram showed normal left ventricular systolic function with an ejection fraction of 65 to 70% as well as grade 1 diastolic dysfunction. Gastroesophageal reflux disease History of tobacco abuse 45 pack year smoking history, quit in October 2019. Lumbar compression fracture Obstructive sleep apnea Untreated for the past 4 years , as she stopped using her CPAP for unclear reasons. Osteopenia Surgical History Surgical History History of bladder suspension procedure History of breast augmentation History of partial hysterectomy Family History Family History Mother Family history of heart disease in male family member before age 55 Cerebrovascular accident Heart attack Sibling Family history of heart disease in male family member before age 55 Heart attack Cerebrovascular accident Transitional cell carcinoma Father Cerebrovascular accident Social History Social History Social History: Surrogate decision maker: matias Avelar. Code status: Full code. Smoking packs per day: 2 Smoking cigarettes per day: 40.0 Years smoked: 62 Smoking pack-years: 124.00 Smoking status: Former smoker Tobacco type: cigarettes Second hand tobacco smoke exposure: No Smoking end date: 11/13/19 Additional smoking assessment comments: Smoked .75 packs per day but up to 1.5 - 2 packs per day for over a year. Alcohol intake: never Substance use: never Substance use type: does not use Additional living arrangements comments: She has an adopted 11 y
--- NOTE | 2020-01-25 11:45 | PC.NURSE ---
Patient to cardiac cathode builder via stretcher. Report given to TANIKA Franz.
--- NOTE | 2020-01-25 12:14 | WPDCARDPROC ---
Cardiac Cath Procedure Note Date of procedure:: 01/25/20 Performing physician:: Cristian Brunner MD Indication:: evaluation of chest pain both with and without exertion new diagnosis of atrial tachycardia COPD Brief clinical history:: this is a 74-year-old woman no previous history of coronary artery disease. She is a chronic cigarette smoker and has significant COPD. She entered the hospital with chest pain that was coincident with an episode of atrial tachycardia with very rapid heart rate of over 200 beats per minute. In this setting she had significant chest pain. Because of an additional history of exertional chest pain a coronary angiogram has been recommended. Procedure Procedure performed:: Left heart catheterization with coronary angiography and left ventriculography Angio-Seal to right femoral artery Sedation/Medication given:: fentanyl 50 mg Versed 2 mg case start time 11:58 a.m. case end time 12:10 p.m. sedation provided by Maria M Norman RN, trained observer Access site:: right femoral artery Estimated blood loss:: 15-20 cc Procedure note:: patient was brought to the cardiac catheterization lab in the postabsorptive state where the right femoral triangle was prepared and draped in the usual fashion. Anesthesia was provided with 1% lidocaine infiltrated locally. Using the modified Seldinger technique the common femoral artery was punctured and a 5 Latvian vascular sheath was placed. After this left heart catheterization was carried out. I utilized 5 Latvian angle pigtail catheter to demonstrate left-sided hemodynamics, pullback pressures across the aortic valve and to inject and LV g in the SHINE projection. After this the pigtail catheter was withdrawn a 5 Latvian FL4 catheter was used to engage inject the left coronary artery in multiple projections. A 5 Latvian JR4 catheter was used to engage inject the right coronary artery in Orthogonal projections. The cine angiograms were then reviewed the case was terminated. The femoral artery was studied with an angiogram done through the sheath after which the Angio-Seal device was deployed with a good hemostatic result. There were no signs of any procedural complications the procedure was well tolerated. Findings:: Hemodynamics: Central aortic pressure was 106/58 left ventricle 1 over 6/0 end-diastolic pressure no systolic gradient across the aortic valve upon pullback. Left ventricle: The LV is of normal size all segments contract appropriately there were no regional wall motion abnormalities the global ejection fraction is 50-55% by visual estimation the left main coronary artery is medium in size and is nicely patent. The LAD is a moderate caliber artery extending down to around the apex there is minimal luminal irregularity in the proximal LAD but no flow-limiting disease is identified. Circumflex is a medium caliber vessel giving rise to the marginal branches the circumflex system is angiographically unremarkable the RCA is a moderate caliber vessel dominant to the posterior circulation in the 2nd portion there is a modest atherosclerotic stenosis of 20% in the RCA there is no flow-limiting disease. Conclusion:: 1. Angiographically minimal coronary artery disease with no flow-limiting lesions identified in right coronary dominant circulation 2. preserved left ventricular systolic function 3. Angio-Seal to right femoral artery Cristian Brunner MD [facility]
--- NOTE | 2020-01-25 13:35 | PC.NURSE ---
Patient returned to room following cardiac cath. Report received from TANIKA Murphy.
[2020-01-25] MEDS: SODIUM CHLORIDE 0.9% IV 1,000 ML 125 ML IV CONT (14:28)
--- NOTE | 2020-01-25 17:33 | PM.IMPN ---
Progress Note: A&P Assessment and Plan (1) Syncope: Qualifiers: Syncope type: unspecified Qualified Code(s): R55 - Syncope and collapse Code(s): R55 - Syncope and collapse Status: Acute Assessment and Plan: r/o Cardiogenic syncope - Admit to IMU Echocardiogram. Carotid doppler U/S in am. TRop x3 are negative 74 year old Caucsian female with known COPD and GERD who was just discharged from our Hospitalist service this past week after she was treated for an ileus. Pt states she passed out again. Pt complains of mild chest pain and appears very SOB and wheezy in the room. TRopx3 are negative however patient was seen by Cardiology recommended cardiac catheterization to further evaluate syncopal episode, patient was taken to cardiac lab and had a cardiac catheterization which was essentially normal without any significant coronary artery disease, to further evaluate patient had CT scan of the head is essentially normal any acute injury, similarly patient had cardiac echo shows preserved LV function with ejection fraction of 65%, will have physical therapy evaluate the patient patient will benefit from acute rehab (2) Weakness of right lower extremity: Code(s): R29.898 - Other symptoms and signs involving the musculoskeletal system Status: Acute Assessment and Plan: r/o acute CVA - We will check a STAT CT Brain w/o contrast that has not been obtained yet as the patient seems to have focal weakness. Neurochecks. She isn't sure when she was last at her baseline and is clearly not a candidate for tPA therapy at this time. We will consider MRI brain and Neurology consultation. ASA therapy once brain CT comes back. (3) Tachycardia: Code(s): R00.0 - Tachycardia, unspecified Status: Acute Assessment and Plan: r/o tachycarrythmia. (4) Chest pain: Qualifiers: Chest pain type: unspecified Qualified Code(s): R07.9 - Chest pain, unspecified Code(s): R07.9 - Chest pain, unspecified Status: Acute Assessment and Plan: r/o, anxiety, arrhythmia. Cardiology consultation. (5) COPD with emphysema: Qualifiers: Emphysema type: unspecified Qualified Code(s): J43.9 - Emphysema, unspecified Code(s): J43.9 - Emphysema, unspecified Status: Chronic Assessment and Plan: On xopenox nebuliser (6) Gastroesophageal reflux disease: Qualifiers: Esophagitis presence: esophagitis presence not specified Qualified Code(s): K21.9 - Gastro-esophageal reflux disease without esophagitis Code(s): K21.9 - Gastro-esophageal reflux disease without esophagitis Status: Acute Assessment and Plan: PPI therapy. Subjective Date/time seen: 01/25/20 17:33 Interval history: 74 year old Caucsian female with known COPD and GERD who was just discharged from our Hospitalist service this past week after she was treated for an ileus. Pt states she passed out again. Pt complains of mild chest pain and appears very SOB and wheezy in the room. TRopx3 are negative however patient was seen by Cardiology recommended cardiac catheterization to further evaluate syncopal episode, patient was taken to cardiac lab and had a cardiac catheterization which was essentially normal without any significant coronary artery disease, to further evaluate patient had CT scan of the head is essentially normal any acute injury, similarly patient had cardiac echo shows preserved LV function with ejection fraction of 65%, will have physical therapy evaluate the patient patient will benefit from acute rehab Review of Systems Review of Systems: All systems reviewed & are unremarkable except as noted in HPI and below Exam Const: General: comfortable and no acute distress HENMT: General nose exam: Normal nares present Mouth: Yes moist mucous membranes Eyes: General: appearance normal, both eyes and all related structures Sclera: sclera
[2020-01-26] VITALS (21 sets, daily range): BP systolic 100–119; BP diastolic 47–85; PULSE 68–97; RESP 16–20; TEMP 36.3–37.2; O2SAT 95–97
[2020-01-26] MEDS: IPRATROPIUM BR 0.02% INH SOLN 0.5 MG/2.5 ML VIAL INHALATION ×4 (02:03→21:28)
[2020-01-26] MEDS: dilTIAZem HCL 30 MG TABLET PO (05:20)
[2020-01-26 05:42] LABS: Hemoglobin 11.1 g/dL (12.0-15.0); Mean Corpuscular HGB Conc 30.8 g/dl (32-36); Mean Corpuscular Hemoglobin 29.4 pg (26-34); Mean Corpuscular Volume 95.5 fl (80-100); Mean Platelet Volume 11.2 fl (7.4-10.4); Platelet Count Result 293 k/mm3 (150-375); Red Blood Count 3.77 M/mm3 (4.2-5.4); Red Cell Distribution Width 14.5 % (11.5-14.5); White Blood Count 8.5 K/mm3 (4.5-10.0)
[2020-01-26 06:04] LABS: Blood Urea Nitrogen 9 mg/dL (7-17); Calcium 8.4 mg/dL (8.4-10.2); Carbon Dioxide 24 mmol/L (22-30); Chloride 111 mmol/L (98-107); Estimated CRCL calculation 47 ml/min; Estimated Glomerular Filt Rate > 60; Glucose 91 mg/dL (65-105); Sodium 140 mmol/L (137-145)
[2020-01-26] MEDS: ASPIRIN 81 MG ENTERIC TABLET PO (08:32)
[2020-01-26] MEDS: ROSUVASTATIN 10 MG TABLET 20 MG PO (08:32)
[2020-01-26] MEDS: guaiFENesin 12 HR 600 MG TABCR PO ×2 (09:28→21:43)
[2020-01-26] MEDS: BENZONATATE 100 MG CAPSULE PO ×3 (09:28→21:43)
--- NOTE | 2020-01-26 10:31 | PM.PNCARD ---
Progress Note: A&P Assessment and Plan (1) Chest pain: Qualifiers: Chest pain type: unspecified Qualified Code(s): R07.9 - Chest pain, unspecified Code(s): R07.9 - Chest pain, unspecified Status: Acute Assessment and Plan: Cardiac catheterization 01/25/2020: Angiographically minimal coronary artery disease with no flow-limiting lesions identified in the right coronary dominant circulation. Preserved LV systolic function. Continue aspirin 81 mg p.o. daily, rosuvastatin 20 mg p.o. daily . Triglyceride 100. Total cholesterol 168. LDL 85. HDL 60. 2D echocardiogram Doppler 01/25/2020: left ventricular chamber dimension is normal. Left ventricular systolic function is normal estimated at 60-65%. Mild aortic valve sclerosis. (2) Tachycardia: Code(s): R00.0 - Tachycardia, unspecified Status: Acute Assessment and Plan: SVT and probably atrial tachycardia. Cannot exclude multi focal atrial tachycardia. Not going in and out of atrial fibrillation. Transition to long-acting diltiazem. (3) Coronary artery calcification: Code(s): I25.10 - Atherosclerotic heart disease of [place] coronary artery without angina pectoris; I25.84 - Coronary atherosclerosis due to calcified coronary lesion Status: Acute Assessment and Plan: as detailed above (4) COPD with exacerbation: Code(s): J44.1 - Chronic obstructive pulmonary disease with (acute) exacerbation Status: Acute Assessment and Plan: Management per hospitalist (5) History of tobacco abuse: Code(s): Z87.891 - Personal history of nicotine dependence Status: Acute Assessment and Plan: She states that she does not smoke and she is not around smokers (6) [place] (obstructive sleep apnea): Code(s): G47.33 - Obstructive sleep apnea (adult) (pediatric) Status: Acute Assessment and Plan: Untreated for the last 4 years (7) Syncope: Qualifiers: Syncope type: unspecified Qualified Code(s): R55 - Syncope and collapse Code(s): R55 - Syncope and collapse Status: Acute Assessment and Plan: Probably related to tachyarrhythmia. Will likely need electrophysiology evaluation as an outpatient for possible ablation. Additional Plan Plan discussed with Dr Ramsay 1040 01/26/2020 Subjective Date/time seen: 01/26/20 10:31 Interval history: Follow up for: syncope, chest pain, Date of service: 01/26/2020 Subjective:Short of breath with exertional activities. No lightheadedness or dizziness. Notes some chest discomfort on occasion which correlates to short bursts of SVT. Review of Systems Constitutional: Constitutional: Denies fatigue, Denies headache(s) and Denies lethargy Eyes: Eyes: Denies blurry vision ENT: Denies Normal hearing present, Denies headache(s), Denies epistaxis and Denies neck pain Cardiovascular: Cardiovascular: Reports chest pain ( Rare), Denies lightheadedness, Denies palpitations and Reports dyspnea on exertion Respiratory: Respiratory: Reports dyspnea on exertion and Reports wheezing Gastrointestinal: Gastrointestinal: Denies abdominal pain, Denies nausea and Denies vomiting Genitourinary: Genitourinary: Denies hematuria and Denies flank pain Musculoskeletal: Musculoskeletal: Denies back pain, Denies neck pain and Denies numbness Integumentary/Breasts: Skin/Breast: Denies dry skin and Denies unusual bruising Neurologic: Reports Normal hearing present, Denies headache(s) and Denies numbness Psychiatric: Psychiatric: Denies anxiety Endocrine: Endocrine: Denies fatigue, Denies flushing and Denies palpitations Hematologic/Lymphatic: Hematologic/Lymphatic: Denies easy bleeding and Denies easy bruising Allergic/Immunologic: Allergi
[2020-01-26] MEDS: LEVALBUTEROL NEB 1.25 MG/3 ML 0.63 MG INHALATION ×2 (14:25→21:28)
[2020-01-26] MEDS: methylPREDNISolone SOD SUCC 125 MG VIAL 60 MG IV PUSH ×2 (14:48→21:43)
--- NOTE | 2020-01-26 18:35 | PM.IMPN ---
Progress Note: A&P Assessment and Plan (1) Syncope: Qualifiers: Syncope type: unspecified Qualified Code(s): R55 - Syncope and collapse Code(s): R55 - Syncope and collapse Status: Acute Assessment and Plan: 01/26/20 18:35 r/o Cardiogenic syncope - Admit to IMU Echocardiogram. Carotid doppler U/S in am. TRop x3 are negative 74 year old Caucsian female with known COPD and GERD who was just discharged from our Hospitalist service this past week after she was treated for an ileus. Pt states she passed out again. Pt complains of mild chest pain and appears very SOB and wheezy in the room. TRopx3 are negative however patient was seen by Cardiology recommended cardiac catheterization to further evaluate syncopal episode, patient was taken to cardiac lab and had a cardiac catheterization which was essentially normal without any significant coronary artery disease, to further evaluate patient had CT scan of the head is essentially normal any acute injury, similarly patient had cardiac echo shows preserved LV function with ejection fraction of 65%,, on 01/24 patient developed tachycardia seen by upper inspector suspect SVT as well as multi focal atrial tachycardia as patient is high risk due to COPD, diltiazem drip was started and patient is placed on oral diltiazem to control the heart, will avoid beta-karsten due to history of severe COPD, the patient also has will start the patient on Solu-Medrol Xopenex will continue to monitor (2) Weakness of right lower extremity: Code(s): R29.898 - Other symptoms and signs involving the musculoskeletal system Status: Acute Assessment and Plan: r/o acute CVA - We will check a STAT CT Brain w/o contrast that has not been obtained yet as the patient seems to have focal weakness. Neurochecks. She isn't sure when she was last at her baseline and is clearly not a candidate for tPA therapy at this time. We will consider MRI brain and Neurology consultation. ASA therapy once brain CT comes back. (3) Tachycardia: Code(s): R00.0 - Tachycardia, unspecified Status: Acute Assessment and Plan: r/o tachycarrythmia. (4) Chest pain: Qualifiers: Chest pain type: unspecified Qualified Code(s): R07.9 - Chest pain, unspecified Code(s): R07.9 - Chest pain, unspecified Status: Acute Assessment and Plan: r/o, anxiety, arrhythmia. Cardiology consultation. (5) COPD with emphysema: Qualifiers: Emphysema type: unspecified Qualified Code(s): J43.9 - Emphysema, unspecified Code(s): J43.9 - Emphysema, unspecified Status: Chronic Assessment and Plan: On xopenox nebuliser (6) Gastroesophageal reflux disease: Qualifiers: Esophagitis presence: esophagitis presence not specified Qualified Code(s): K21.9 - Gastro-esophageal reflux disease without esophagitis Code(s): K21.9 - Gastro-esophageal reflux disease without esophagitis Status: Acute Assessment and Plan: PPI therapy. Subjective Date/time seen: 01/26/20 18:35 r/o Cardiogenic syncope - Admit to IMU Echocardiogram. Carotid doppler U/S in am. TRop x3 are negative 74 year old Caucsian female with known COPD and GERD who was just discharged from our Hospitalist service this past week after she was treated for an ileus. Pt states she passed out again. Pt complains of mild chest pain and appears very SOB and wheezy in the room. TRopx3 are negative however patient was seen by Cardiology recommended cardiac catheterization to further evaluate syncopal episode, patient was taken to cardiac lab and had a cardiac catheterization which was essentially normal without any significant coronary artery disease, to further evaluate patient had CT scan of the head is essentially normal any acute injury, similarly patient had cardiac echo shows preserved LV function with ejection fraction of 65%,, on 01/24 patient developed tachyca
[2020-01-27] VITALS (12 sets, daily range): BP systolic 109–120; BP diastolic 71–83; PULSE 87–114; RESP 16–24; TEMP 36.2–37.1; O2SAT 95–99
[2020-01-27] MEDS: LEVALBUTEROL NEB 1.25 MG/3 ML 0.63 MG INHALATION ×2 (02:57→09:15)
[2020-01-27] MEDS: IPRATROPIUM BR 0.02% INH SOLN 0.5 MG/2.5 ML VIAL INHALATION ×2 (02:57→09:15)
[2020-01-27 04:48] LABS: Hematocrit 39.4 % (37.0-47.0); Hemoglobin 12.3 g/dL (12.0-15.0); Mean Corpuscular HGB Conc 31.2 g/dl (32-36); Mean Corpuscular Hemoglobin 29.6 pg (26-34); Mean Corpuscular Volume 94.9 fl (80-100); Mean Platelet Volume 10.8 fl (7.4-10.4); Platelet Count Result 296 k/mm3 (150-375); Red Blood Count 4.15 M/mm3 (4.2-5.4); Red Cell Distribution Width 13.8 % (11.5-14.5); White Blood Count 6.7 K/mm3 (4.5-10.0)
[2020-01-27 05:07] LABS: Anion Gap 14.3 mmol/L (7-16); Blood Urea Nitrogen 10 mg/dL (7-17); Calcium 9.2 mg/dL (8.4-10.2); Carbon Dioxide 21 mmol/L (22-30); Chloride 108 mmol/L (98-107); Estimated CRCL calculation 53 ml/min; Estimated Glomerular Filt Rate > 60; Glucose 163 mg/dL (65-105); Potassium 4.3 mmol/L (3.4-5.0); Sodium 139 mmol/L (137-145)
[2020-01-27] MEDS: methylPREDNISolone SOD SUCC 125 MG VIAL 60 MG IV PUSH (05:36)
[2020-01-27] MEDS: BENZONATATE 100 MG CAPSULE PO (05:36)
[2020-01-27] MEDS: ASPIRIN 81 MG ENTERIC TABLET PO (09:13)
[2020-01-27] MEDS: ROSUVASTATIN 10 MG TABLET 20 MG PO (09:13)
[2020-01-27] MEDS: guaiFENesin 12 HR 600 MG TABCR PO (09:13)
--- NOTE | 2020-01-27 10:17 | PM.PNCARD ---
Progress Note: A&P Assessment and Plan (1) Chest pain: Qualifiers: Chest pain type: unspecified Qualified Code(s): R07.9 - Chest pain, unspecified Code(s): R07.9 - Chest pain, unspecified Status: Acute Assessment and Plan: Cardiac catheterization 01/25/2020: Angiographically minimal coronary artery disease with no flow-limiting lesions identified in the right coronary dominant circulation. Preserved LV systolic function. Continue aspirin 81 mg p.o. daily, rosuvastatin 20 mg p.o. daily 2D echocardiogram Doppler 01/25/2020: left ventricular chamber dimension is normal. Left ventricular systolic function is normal estimated at 60-65%. Mild aortic valve sclerosis. (2) Tachycardia: Code(s): R00.0 - Tachycardia, unspecified Status: Acute Assessment and Plan: SVT and probably atrial tachycardia. Cannot exclude multi focal atrial tachycardia. Not going in and out of atrial fibrillation. No further episodes of SVT. Discharge on diltiazem 180 mg daily. (3) Coronary artery calcification: Code(s): I25.10 - Atherosclerotic heart disease of [place] coronary artery without angina pectoris; I25.84 - Coronary atherosclerosis due to calcified coronary lesion Status: Acute Assessment and Plan: as detailed above (4) COPD with exacerbation: Code(s): J44.1 - Chronic obstructive pulmonary disease with (acute) exacerbation Status: Acute Assessment and Plan: Management per hospitalist (5) History of tobacco abuse: Code(s): Z87.891 - Personal history of nicotine dependence Status: Acute Assessment and Plan: She states that she does not smoke and she is not around smokers (6) S[place] (obstructive sleep apnea): Code(s): G47.33 - Obstructive sleep apnea (adult) (pediatric) Status: Acute Assessment and Plan: Untreated for the last 4 years (7) Syncope: Qualifiers: Syncope type: unspecified Qualified Code(s): R55 - Syncope and collapse Code(s): R55 - Syncope and collapse Status: Acute Assessment and Plan: Probably related to tachyarrhythmia. Will likely need electrophysiology evaluation as an outpatient for possible ablation. Additional Plan Plan discussed with Dr. Brunner 1020 01/27/2020 Subjective Date/time seen: 01/27/20 10:17 Interval history: Follow up for: syncope, chest pain, Date of service: 01/27/2020 Subjective: Just returning back from the bathroom. Noted her heart rate went to 135. Denied chest discomfort or lightheadedness. Short of breath with this exertional activity. Review of Systems Constitutional: Constitutional: Denies fatigue, Denies headache(s) and Denies lethargy Eyes: Eyes: Denies blurry vision ENT: Reports Normal hearing present, Denies headache(s), Denies epistaxis and Denies neck pain Cardiovascular: Cardiovascular: Denies chest pain, Denies lightheadedness, Denies palpitations and Reports dyspnea on exertion Respiratory: Respiratory: Reports dyspnea on exertion and Denies wheezing Gastrointestinal: Gastrointestinal: Denies abdominal pain, Denies nausea and Denies vomiting Genitourinary: Genitourinary: Denies hematuria and Denies flank pain Musculoskeletal: Musculoskeletal: Denies back pain, Denies neck pain and Denies numbness Integumentary/Breasts: Skin/Breast: Denies dry skin and Denies unusual bruising Neurologic: Reports Normal hearing present, Denies headache(s) and Denies numbness Psychiatric: Psychiatric: Denies anxiety Endocrine: Endocrine: Denies fatigue, Denies flushing and Denies palpitations Hematologic/Lymphatic: Hematologic/Lymphatic: Denies easy bleeding and Denies easy bruising Allergic/Immunologic: Allergic/Immunologic: Denies GI upset wi
--- NOTE | 2020-01-27 10:47 | PM.DS ---
DS: Admitting Diagnosis Admitting Diagnosis Admitting Diagnosis: Syncope and collapse DS: Discharge Diagnosis Discharge Diagnosis (1) Syncope: Qualifiers: Syncope type: unspecified Qualified Code(s): R55 - Syncope and collapse Code(s): R55 - Syncope and collapse Status: Acute Assessment and Plan: 01/26/20 18:35 r/o Cardiogenic syncope - Admit to IMU Echocardiogram. Carotid doppler U/S in am. TRop x3 are negative 74 year old Caucsian female with known COPD and GERD who was just discharged from our Hospitalist service this past week after she was treated for an ileus. Pt states she passed out again. Pt complains of mild chest pain and appears very SOB and wheezy in the room. TRopx3 are negative however patient was seen by Cardiology recommended cardiac catheterization to further evaluate syncopal episode, patient was taken to cardiac lab and had a cardiac catheterization which was essentially normal without any significant coronary artery disease, to further evaluate patient had CT scan of the head is essentially normal any acute injury, similarly patient had cardiac echo shows preserved LV function with ejection fraction of 65%,, on 01/24 patient developed tachycardia seen by receiving room clerk suspect SVT as well as multi focal atrial tachycardia as patient is high risk due to COPD, diltiazem drip was started and patient is placed on oral diltiazem to control the heart, will avoid beta-karsten due to history of severe COPD, the patient also has will start the patient on Solu-Medrol Xopenex will continue to monitor (2) Weakness of right lower extremity: Code(s): R29.898 - Other symptoms and signs involving the musculoskeletal system Status: Acute Assessment and Plan: r/o acute CVA - We will check a STAT CT Brain w/o contrast that has not been obtained yet as the patient seems to have focal weakness. Neurochecks. She isn't sure when she was last at her baseline and is clearly not a candidate for tPA therapy at this time. We will consider MRI brain and Neurology consultation. ASA therapy once brain CT comes back. (3) Tachycardia: Code(s): R00.0 - Tachycardia, unspecified Status: Acute Assessment and Plan: r/o tachycarrythmia. (4) Chest pain: Qualifiers: Chest pain type: unspecified Qualified Code(s): R07.9 - Chest pain, unspecified Code(s): R07.9 - Chest pain, unspecified Status: Acute Assessment and Plan: r/o, anxiety, arrhythmia. Cardiology consultation. (5) COPD with emphysema: Qualifiers: Emphysema type: unspecified Qualified Code(s): J43.9 - Emphysema, unspecified Code(s): J43.9 - Emphysema, unspecified Status: Chronic Assessment and Plan: On xopenox nebuliser (6) Gastroesophageal reflux disease: Qualifiers: Esophagitis presence: esophagitis presence not specified Qualified Code(s): K21.9 - Gastro-esophageal reflux disease without esophagitis Code(s): K21.9 - Gastro-esophageal reflux disease without esophagitis Status: Acute Assessment and Plan: PPI therapy. DS: Summary Hospital Course Reason for hospitalization: Chief complaint: Passed out at home today+ Narrative: This is a pleasant 74 year old Caucsian female with known COPD and GERD who was just discharged from our Hospitalist service this past week after she was treated for an ileus and now returned to the hospital with a complaint of passing out at home today for about 1 minute duration. The patient is known to have had brief episodes of passing out preceded by a prodrome of dizziness and sweatiness for years and she has noticed that over the past few months she has started to develop intermittent chest tightness that also lasts only for a few moments. Today while she was at sitting in a chair she again had her usual prodrome of dizziness and diaphoresis but also experienced chest tightness and then passe
== END 2020-01-27 11:45 | disposition home or self-care (01) ==
LOC: ANHED 19:36 → ANHIMU 19:56
PROVIDERS: Internal Medicine Cardiovascular Disease; Specialist; Admitting Provider Family Medicine; Emergency Provider Emergency Medicine; PCP Physician Assistant; Visit Provider Family Medicine
PROC: 4A023N7 Measurement of Cardiac Sampling and Pressure, Left Heart, Percutaneous Approach (ICD-10-PCS; CPT 93452; principal; 2020-01-25 13:00)
DX: R55 Syncope and collapse (principal); R29.898 Other symptoms and signs involving the musculoskeletal system; I47.1 Supraventricular tachycardia; R07.9 Chest pain, unspecified; J43.9 Emphysema, unspecified; K21.9 Gastro-esophageal reflux disease without esophagitis; I25.10 Atherosclerotic heart disease of native coronary artery without angina pectoris; I25.84 Coronary atherosclerosis due to calcified coronary lesion; G47.33 Obstructive sleep apnea (adult) (pediatric); M85.80 Other specified disorders of bone density and structure, unspecified site; Z79.899 Other long term (current) drug therapy; Z87.891 Personal history of nicotine dependence
CPT/HCPCS: 36415; 36600; 70450; 71045; 80048; 80061; 82805; 83735; 84100; 84443; 84484; 85025; 85027; 93005; 93306; 93458; 94640; 96365; 96366; 96372; 96375; 96376; 99285; A9270; C1760; C1887; C1894; G0269; G0378; J1644; J1650; J2250; J2930; J3010; J7030; J7040

== ENCOUNTER 2020-01-28 09:31 | Outpatient (CLI) | payer MEDICARE, SELFPAY ==
--- NOTE | 2020-02-03 06:38 | WPDPFTINT ---
PFT Interpretation PFT Interpretation: DOS: 01/28/2020 REQUESTING: Marlo Smith NP REASON FOR TESTING: COPD PULMONARY FUNCTION TESTS Results are reliable. Patient had difficulty with full expiration during spirometry, with good effort. Spirometry: FEV1 76%, mildly decreased. FVC is normal 93%. FEV1% is decreased. VXU15-56% is extremely low 27%. There is no change with bronchodilator. Lung volumes: TLC is 112%, normal. RV increased 135% consistent with mild iar trapping. Increased airway resistance 275%> Diffusion: DLCO moderately reduced at 50%. Flow volume loop: Scooping of the expiratory limb. IMPRESSION: Mild obstructive ventilatory impairment, mild air trapping moderate diffusion impairment. No change with bronchodilator. This pattern is consistent with COPD. Lack of response to bronchodilator should not preclude use if clinically indicated. Patience Rodriguez MD
== END 2020-01-28 09:32 | disposition home or self-care (01) ==
PROVIDERS: PCP Internal Medicine; Visit Provider Nurse Practitioner Family
DX: J44.9 Chronic obstructive pulmonary disease, unspecified (principal); R94.2 Abnormal results of pulmonary function studies
CPT/HCPCS: 94060; 94726; 94729

== ENCOUNTER 2020-04-27 08:20 | Outpatient (CLI) | payer MEDICARE, SELFPAY ==
--- NOTE | 2020-05-27 14:15 | WPDHOMESLEEP ---
Sleep Study - Home Unattended Date of Study: 04/27/20 Ordering Provider: Marlo Smith APRN Interpreting Physician: Patience Rodriguez MD Home Sleep Study Type: Apnea Link Air Height: 1.63 m Weight: 58.06 kg Body Mass Index: 21.9 [place]: 20 Reason for Sleep Study hypersomnolence Sleep History Mary Kate Keith is a 75 year old female with complaints of frequent snoring which is occasionally loud enough that others complain about it. She frequently awakens at night with heartburn, belching or coughing. She with occasionally Has trouble sleeping with a cold. she frequently wakes up gasping for breath at night, frequently has breathing problems at night observed by others. She does not sweat excessively at night. She frequently notices her heart pounding or beating irregularly at night. She frequently falls asleep during the day, occasionally involuntarily, never while driving. She rarely falls asleep during physical effort. She does not have nightmares. She frequently has loss of muscle tone with strong emotion. She rarely has daytime difficulties due to excessive sleepiness. She occasionally feels paralyzed on waking or falling asleep and occasionally has vivid dreamlike scenes upon awakening or falling asleep. She is rarely afraid to go to sleep. She rarely remembers her dreams. She frequently has racing thoughts. She occasionally feels sad or depressed. She frequently feels anxious. She rarely has muscular tension. She does not notice parts of her body jerking and she does not kick at night. She occasionally has crawling and aching feelings in her legs at night and occasionally has leg pain during the night. She does not have morning jaw pain. She frequently grinds her teeth at night. She occasionally has bothered by pain during the day, occasionally is awakened by pain at night. She frequently wakes up feeling stiff in the morning with sore achy muscles. She frequently wakes up with pain in the neck and spine. She occasionally has morning headaches. She has memory and concentration problems. She has palpitations and takes and acids regularly. She has fatigue. Normal bedtime is 9:00 p.m. taking 30-60 minutes to fall asleep. After sleeping she will wake 3-4 times at night to go to the bathroom. These episodes last 5 minutes. She wakes up in the morning at 6:00 a.m.. She estimates 7 hours of sleep at night. Her weekend schedule is the same. She does take naps. Short nap may be refreshing. She is usually drowsy in the morning for 3 hours or longer. She feels better in the evening compared other times of day. Habits: smoked in the distant past. Caffeine 4 cups per day. No alcohol or recreational drugs. [facility] Past Medical History Medical History (Updated 05/27/20 @ 14:22 by Patience Rodriguez MD) COPD with emphysema Coronary artery calcification Calcifications noted on chest CT in October 2019. Echocardiogram showed normal left ventricular systolic function with an ejection fraction of 65 to 70% as well as grade 1 diastolic dysfunction. Gastroesophageal reflux disease History of tobacco abuse 45 pack year smoking history, quit in October 2019. Lumbar compression fracture Obstructive sleep apnea Untreated for the past 4 years , as she stopped using her CPAP for unclear reasons. Osteopenia Surgical History Surgical History History of bladder suspension procedure History of breast augmentation History of partial hysterectomy Family History Family History Mother Family history of heart disease in male family member before age 55 Cerebrovascular accident Heart attack Sibling Family history of heart disease in male family member before age 55 Heart attack Cerebrovascular accident Transitional cell carcinoma Father Cerebrovascular accident Social History Social History (Reviewed 05/27/20 @ 14:20 by Patience Pelletier
[2020-05-27 14:28] VITALS: BMI 21.9
== END 2020-04-27 08:21 | disposition home or self-care (01) ==
LOC: ANHCSM 08:20
PROVIDERS: PCP Physician Assistant; Visit Provider Nurse Practitioner Family
DX: G47.33 Obstructive sleep apnea (adult) (pediatric) (principal)
CPT/HCPCS: 95806

== ENCOUNTER 2020-05-23 10:03 | Emergency (ER) | payer MEDICARE, SELFPAY ==
[2020-05-23] VITALS (27 sets, daily range): BP systolic 105–146; BP diastolic 68–81; PULSE 75–106; RESP 17–33; TEMP 37.7–37.9; O2SAT 93–100
--- NOTE | ~2020-05-23 | XR_ITS ---
EXAMINATION: XR chest 1V portable DATE: 05/23/2020 10:24 INDICATION: Shortness of breath. TECHNIQUE: A single frontal view of the chest was obtained. COMPARISON: Chest single view 01/23/2020, CT abdomen and pelvis 01/16/2020, chest CT 11/12/2019 FINDINGS: There are lucencies in the lungs, consistent with emphysema. There is mild scarring at righ t lung apex. A calcified left lung nodule and calcified left hilar lymph nodes are consistent with ol d granulomatous disease. No pleural effusion or pneumothorax. The heart size is normal. There are deep ateral breast implants. IMPRESSION: 1. Severe emphysema. Reviewed, dictated and finalized at location A. [employer] IMPRESSION: 1. Severe emphysema.
--- NOTE | 2020-05-23 10:04 | ECG_ITS ---
Measurements Intervals [place] Rate: 108 P: 26 ID: [id number] QRS: -27 QRSD: 78 T: 15 QT: 307 QTc: 413 Interpretive Statements SINUS TACHYCARDIA ATRIAL PREMATURE COMPLEX POSSIBLE LEFT ATRIAL ENLARGEMENT DELAYED PRECORDIAL R/S TRANSITION INFERIOR INFARCT, AGE INDETERMINATE BORDERLINE T WAVE ABNORMALITY- LATERAL LEADS BASELINE WANDER- V4 ABNORMAL ECG Electronically Signed On 05-23-2020 10:16:01 CORONARY CLINICAL SPECIALIST by Wilton Torrez D.O.
--- NOTE | 2020-05-23 10:27 | ED.GENADULT ---
HPI - General Adult General Chief complaint: Upper Respiratory Infection Stated complaint: ST/DIFFICULTY BREATHING/FEVER Time Seen by Provider: 05/23/20 10:11 Source: patient and family Mode of arrival: ambulatory Limitations: no limitations History of Present Illness HPI narrative: Patient is a 75-year-old female who presents to emergency department for evaluation of sudden onset of fever chills body aches frontal headache sore throat that began last night acutely patient denies sick contacts. Patient on arrival is in no distress does not appear uncomfortable. Patient has not taken anything for her symptoms. Related Data Allergies Allergy/AdvReac Type Severity Reaction Status Date / Time No Known Allergies Allergy Verified 03/14/20 13:51 Review of Systems Review of Systems: All systems reviewed & are unremarkable except as noted in HPI and below PMFSH Past Medical History Medical History (Updated 05/23/20 @ 14:45 by Buddy Edgar PA-C) COPD with emphysema Coronary artery calcification Calcifications noted on chest CT in October 2019. Echocardiogram showed normal left ventricular systolic function with an ejection fraction of 65 to 70% as well as grade 1 diastolic dysfunction. Gastroesophageal reflux disease History of tobacco abuse 45 pack year smoking history, quit in October 2019. Lumbar compression fracture Obstructive sleep apnea Untreated for the past 4 years , as she stopped using her CPAP for unclear reasons. Osteopenia Surgical History Surgical History History of bladder suspension procedure History of breast augmentation History of partial hysterectomy Family History Family History Mother Family history of heart disease in male family member before age 55 Cerebrovascular accident Heart attack Sibling Family history of heart disease in male family member before age 55 Heart attack Cerebrovascular accident Transitional cell carcinoma Father Cerebrovascular accident Social History Social History Social History: Surrogate decision maker: Valentino, matias. Code status: Full code. Smoking packs per day: 2 Smoking cigarettes per day: 40.0 Years smoked: 62 Smoking pack-years: 124.00 Smoking status: Former smoker Tobacco type: cigarettes Second hand tobacco smoke exposure: No Smoking end date: 11/13/19 Additional smoking assessment comments: Smoked .75 packs per day but up to 1.5 - 2 packs per day for over a year. Alcohol intake: never Substance use: never Substance use type: does not use Additional living arrangements comments: She has an adopted 11 yo son Mitch, and another soon-to-be adopted son 5 yo Carlos who she is on the process of adopting. Son Valentino lives 1 house away. Additional occupation/education comments: Worked 40 years [employer], , raised 8 children on her own. Gender identity (if verbalized by the patient): Female Spiritual care concerns: No Exam Narrative: Exam Narrative: GENERAL: Ill-appearing, well-nourished, and in no acute distress. HEAD: Normocephalic, atraumatic. EYES: PERRLA and EOMI. ENT: Nares clear, no rhinorrhea or epistaxis. Mucous membranes moist. NECK: Supple. No adenopathy or masses. CHEST: Clear to auscultation. No respiratory distress. No wheezes rales or rhonchi HEART: Regular rate and rhythm. No murmur heard. Normal peripheral pulses. ABDOMEN: Soft, nontender, nondistended EXTREMITIES: Normal range of motion. No edema. SKIN: Warm, dry, no rash. NEURO: No focal deficits. Alert and oriented x3. Cranial nerves II through XII grossly intact PSYCH: Normal mood and affect. Course Course Emergency Course: Patient in the emergency department came by EMS feeling weakness and fever that began this morning with sore throat and congestion patient wa
[2020-05-23 10:40] LABS: Basophils Absolute Auto 0.1 K/mm3 (0.0-0.1); Basophils Percent Auto 0.5 % (0.2-1.2); Hematocrit 39.3 % (37.0-47.0); Hemoglobin 12.8 g/dL (12.0-15.0); Immature Granulocyte Absolute 0.03 K/mm3 (0.00-0.031); Immature Granulocyte Percent A 0.2 % (0-0.5); Lymphocytes Absolute Auto 1.41 K/mm3 (0.9-3.2); Lymphocytes Percent Auto 11.3 % (18.3-44.2); Mean Corpuscular HGB Conc 32.6 g/dl (32-36); Mean Platelet Volume 11.4 fl (7.4-10.4); Monocytes Absolute Auto 0.8 K/mm3 (0.1-0.6); Monocytes Percent Auto 6.7 % (2.6-8.5); Neutrophils Absolute Auto 10.1 K/mm3 (1.3-6.7); Neutrophils Percent Auto 81.3 % (45.5-73.1); Platelet Count Result 257 k/mm3 (150-375); Red Blood Count 4.27 M/mm3 (4.2-5.4); Red Cell Distribution Width 13.5 % (11.5-14.5); White Blood Count 12.5 K/mm3 (4.5-10.0)
[2020-05-23 10:49] LABS: Prothrombin Time 13.7 Seconds (11.1-14.7)
[2020-05-23 10:50] LABS: Partial Thromboplastin Time 25.8 SECONDS (22.3-36.8)
[2020-05-23 10:53] LABS: Alanine Aminotransferase 12 U/L (4-35); Albumin Level 4.3 g/dL (3.5-5.1); Alkaline Phosphatase 82 U/L (38-126); Anion Gap 9 mmol/L (8-16); Aspartate Amino Transferase 25 U/L (14-36); Bilirubin,Total 0.5 mg/dL (0.2-1.3); Blood Urea Nitrogen 7 mg/dL (7-17); Calcium 9.6 mg/dL (8.4-10.2); Carbon Dioxide 25 mmol/L (22-30); Chloride 104 mmol/L (98-107); Estimated CRCL calculation 42 ml/min; Estimated Glomerular Filt Rate > 60; Glucose 98 mg/dL (65-105); Sodium 138 mmol/L (137-145)
[2020-05-23 10:54] LABS: Lactic Acid Reflex 0.8 mmol/L (0.7-2.1)
[2020-05-23] MEDS: SODIUM CHLORIDE 0.9% IV 1,000 ML 999 ML IV CONT ×2 (10:55→14:46)
[2020-05-23 10:56] LABS: CRP 1.8 mg/dL (<1.0)
[2020-05-23 11:39] LABS: Add Urine Microscopic? YES; Appearance Urine Cloudy (Clear); Bacteria Urine Trace /hpf; Bilirubin Urine Negative (Negative); Blood Urine Negative (Negative); Color Urine Yellow (Yellow); Glucose Urine UA Negative (Negative); Ketones Urine Negative (Negative); Leukocyte Esterase Ur 2+ LEU/UL (Negative); Mucus Urine Rare /lpf; Nitrate Urine Positive (Negative); Protein Urine 1+ mg/dL (Negative); RBC Urine 0-2 /hpf (0-2); Specific Grav Ur 1.015 (1.001-1.035); Squamous Epithelial Cell Urine Few /hpf (Few); Transitional Epi Cells Urine Rare /hpf (None Seen); Urobilinogen Urine Negative mg/dL (<2.0); WBC Urine >75 /hpf
[2020-05-23] MEDS: KETOROLAC 15 MG/ML VIAL (*BKC) 10 MG IV PUSH (14:45)
[2020-05-23 20:46] LABS: SARS-CoV-2 RNA PCR Negative
--- NOTE | 2020-05-30 11:26 | PC.NURSE ---
LATE ENTRY This note is being entered to document information to the patient's record. The following information was omitted on [05/23/2020], by [vika]. ns complete at 1546.
== END 2020-05-23 15:51 | disposition home or self-care (01) ==
PROVIDERS: Emergency Medicine Emergency Medical Services; Emergency Provider Emergency Medicine; PCP Physician Assistant
DX: J06.9 Acute upper respiratory infection, unspecified (principal); N39.0 Urinary tract infection, site not specified; Z20.828 Contact with and (suspected) exposure to other viral communicable diseases; J43.9 Emphysema, unspecified; K21.9 Gastro-esophageal reflux disease without esophagitis; Z87.891 Personal history of nicotine dependence; G47.33 Obstructive sleep apnea (adult) (pediatric); M85.80 Other specified disorders of bone density and structure, unspecified site; I25.10 Atherosclerotic heart disease of native coronary artery without angina pectoris; R00.0 Tachycardia, unspecified; I49.1 Atrial premature depolarization; R94.31 Abnormal electrocardiogram [ECG] [EKG]; Z79.82 Long term (current) use of aspirin
CPT/HCPCS: 36415; 71045; 80053; 81001; 83605; 85025; 85610; 85730; 86140; 87040; 87077; 87086; 87088; 87186; 87635; 87804; 93005; 96361; 96365; 96367; 96375; 99284; C9803; J0131; J0696; J1885; J7030; U0003

== ENCOUNTER 2020-05-27 08:51 | Outpatient (CLI) | payer MEDICARE, SELFPAY ==
--- NOTE | ~2020-05-27 | US_ITS ---
EXAMINATION: US aorta [facility] [place] [facility] DATE: 05/27/2020 09:31 INDICATION: Abdominal aortic aneurysm screening. TECHNIQUE: Grayscale, color Doppler, and pulsed Doppler images of the aorta and common iliac arteries were obtained. COMPARISON: CT abdomen and pelvis 01/16/2020 FINDINGS: The aorta is normal in caliber and demonstrates atherosclerosis. The right common iliac artery is nor mal in caliber. The left common iliac artery is normal in caliber. IMPRESSION: 1. No abdominal aortic aneurysm. Reviewed, dictated and finalized at location A. [employer]
== END 2020-05-27 08:52 | disposition home or self-care (01) ==
PROVIDERS: PCP Physician Assistant; Visit Provider Internal Medicine Cardiovascular Disease
DX: Z72.0 Tobacco use (principal); Z13.6 Encounter for screening for cardiovascular disorders
CPT/HCPCS: 76706

== ENCOUNTER → 2020-08-22 02:30 | Outpatient (CLI) | payer MEDICARE, SELFPAY ==
[2020-08-22 22:11] LABS: SARS-CoV-2 RNA PCR Negative
== END ==
PROVIDERS: PCP Physician Assistant; Visit Provider Internal Medicine Critical Care Medicine
DX: R68.89 Other general symptoms and signs (principal); Z20.822 Contact with and (suspected) exposure to COVID-19
CPT/HCPCS: C9803; U0003; U0005

== ENCOUNTER 2020-08-24 09:09 | Outpatient (CLI) | payer MEDICARE, SELFPAY ==
--- NOTE | 2020-09-15 15:12 | WPDSLEEPSTUD ---
Sleep Study Ordering Provider: Ted Benavides PA-C Interpreting Physician: Patience Rodriguez MD Sleep Study Type: Multiple Sleep Latency Test Height: 1.63 m Weight: 56.245 kg Body Mass Index: 21.2 Neck Circumference (inches): 11.5 [place]: 17 Reason for Sleep Study Extreme hypersomnolence, prior [place] score was 20. Home sleep test April 27, 2020 did not show sleep disordered breathing. Sleep History Mary Kate Keith is a 75 year-old female with a history of extreme hypersomnolence, [place] was 20 when she took her portable home sleep test on April 27, 2020. The apnea-hypopnea index was 1.1 with a minimum desaturation of 88%. Although the data from the home sleep test was normal, she had extreme hypersomnolence and features that suggested narcolepsy including frequent loss of muscle tone with strong emotion, occasionally feeling paralyzed on waking or falling asleep and occasional vivid dreamlike scenes upon awakening or falling asleep. A prior home sleep test in 2013 showed mild obstructive sleep apnea with an AHI of 7 and she was titrated on CPAP 5 cm water pressure. History includes snoring which is occasionally loud enough that others complain about it. She frequently awakens at night with heartburn, belching or coughing. She with occasionally has trouble sleeping with a cold. She frequently wakes up gasping for breath at night, frequently has breathing problems at night observed by others. She does not sweat excessively at night. She frequently notices her heart pounding or beating irregularly at night. She frequently falls asleep during the day, occasionally involuntarily, never while driving. She rarely falls asleep during physical effort. She does not have nightmares. She frequently has loss of muscle tone with strong emotion. She rarely has daytime difficulties due to excessive sleepiness. She occasionally feels paralyzed on waking or falling asleep and occasionally has vivid dreamlike scenes upon awakening or falling asleep. She is rarely afraid to go to sleep. She rarely remembers her dreams. She frequently has racing thoughts. She occasionally feels sad or depressed. She frequently feels anxious. She rarely has muscular tension. She does not notice parts of her body jerking and she does not kick at night. She occasionally has crawling and aching feelings in her legs at night and occasionally has leg pain during the night. She does not have morning jaw pain. She frequently grinds her teeth at night. She occasionally has bothered by pain during the day, occasionally is awakened by pain at night. She frequently wakes up feeling stiff in the morning with sore achy muscles. She frequently wakes up with pain in the neck and spine. She occasionally has morning headaches. She has memory and concentration problems. She has palpitations and takes antacids regularly. She has fatigue. Normal bedtime is 9:00 p.m. taking 30-60 minutes to fall asleep. During the night, she wakes 3-4 times to go to the bathroom. These episodes last 5 minutes. She wakes up in the morning at 6:00 a.m.. She estimates 7 hours of sleep at night. Her weekend schedule is the same. She does take naps. A short nap may be refreshing. She is usually drowsy in the morning for 3 hours or longer. She feels better in the evening compared other times of day. Habits: Smoked in the distant past. Caffeine 4 cups per day. No alcohol or recreational drugs. [facility] Past Medical History Medical History COPD with emphysema Coronary artery calcification Calcifications noted on chest CT in October 2019. Echocardiogram showed normal left ventricular systolic function with an ejection fraction of 65 to 70% as well as grade 1 diastolic dysfunction. Gastroesophageal reflux disease History of tobacco abuse 45 pack year smoking history, quit in October 2019. Lumbar compression fracture Obstructive sleep apnea Untreated
[2020-09-15 15:18] VITALS: BMI 21.2
--- NOTE | 2020-09-15 15:25 | WPDSLEEPSTUD ---
Sleep Study Date of Study: 08/25/20 Ordering Provider: Ted Benavides PA-C Interpreting Physician: Patience Rodriguez MD Sleep Study Type: Multiple Sleep Latency Test Height: 1.63 m Weight: 56.245 kg Body Mass Index: 21.2 Neck Circumference (inches): 11.5 [place]: 17 Reason for Sleep Study Excessive daytime sleepiness Sleep History Please see sleep history on the basic nocturnal polysomnogram August 24, 2020. [facility] Past Medical History Medical History COPD with emphysema Coronary artery calcification Calcifications noted on chest CT in October 2019. Echocardiogram showed normal left ventricular systolic function with an ejection fraction of 65 to 70% as well as grade 1 diastolic dysfunction. Gastroesophageal reflux disease History of tobacco abuse 45 pack year smoking history, quit in October 2019. Lumbar compression fracture Obstructive sleep apnea Untreated for the past 4 years , as she stopped using her CPAP for unclear reasons. Osteopenia Surgical History Surgical History History of bladder suspension procedure History of breast augmentation History of partial hysterectomy Family History Family History Mother Family history of heart disease in male family member before age 55 Cerebrovascular accident Heart attack Sibling Family history of heart disease in male family member before age 55 Heart attack Cerebrovascular accident Transitional cell carcinoma Father Cerebrovascular accident Social History Social History Social History: Surrogate decision maker: matias Avelar. Code status: Full code. Smoking packs per day: 2 Smoking cigarettes per day: 40.0 Years smoked: 62 Smoking pack-years: 124.00 Smoking status: Former smoker Tobacco type: cigarettes Second hand tobacco smoke exposure: No Smoking end date: 11/13/19 Additional smoking assessment comments: Smoked .75 packs per day but up to 1.5 - 2 packs per day for over a year. Alcohol intake: never Substance use: never Substance use type: does not use Additional living arrangements comments: She has an adopted 11 yo son Mitch, and another soon-to-be adopted son 5 yo Aaden who she is on the process of adopting. Son Valentino lives 1 house away. Additional occupation/education comments: Worked 40 years [employer], , raised 8 children on her own. Gender identity (if verbalized by the patient): Female Spiritual care concerns: No Medications Home Medications Medication Instructions Recorded Confirmed Type diltiazem HCl 180 mg PO DAILY #30 cap 01/27/20 09/11/20 Rx pantoprazole 20 mg tablet,delayed 20 mg PO QAM #90 tablet 02/01/20 09/11/20 Rx release rosuvastatin 20 mg tablet 20 mg PO DAILY #90 tablet 02/01/20 09/11/20 Rx levalbuterol HCl 0.63 mg/3 mL See Rx Instructions .ROUTE 05/09/20 09/11/20 Rx solution for nebulization .COMPLEX #750 ml fluticasone propionate [Flonase 2 spray INTRANASAL DAILY #9.9 ml 05/23/20 09/11/20 Rx Allergy Relief] budesonide 0.5 mg/2 mL suspension 0.5 mg INHALATION BID #120 ml 08/22/20 09/11/20 Rx for nebulization ipratropium bromide 0.02 % 2.5 ml INHALATION Q6H PRN #300 ml 08/22/20 09/11/20 Rx solution for inhalation levalbuterol tartrate 45 See Rx Instructions .ROUTE 09/02/20 09/11/20 Rx mcg/actuation aerosol inhaler .COMPLEX #15 g ciprofloxacin HCl 500 mg tablet 500 mg PO Q12H #10 tablet 09/07/20 Rx Sleep Procedure The recording montage for the MSLT includes central EEG (C3-A2, C4-A1) and occipital (O1-A2, O2-A1) derivations, left and right eye electrooculograms (EOGs), mental/submental electromyogram (EMG), and electrocardiogram (EKG). Nap 1 commenced at 7:20 a.m. Sleep latency: no sleep, 20 min. No REM. Nap 1 was terminated at 7:40 a.m. The
[2020-09-15 16:17] VITALS: BMI 21.2
== END 2020-08-24 09:10 | disposition home or self-care (01) ==
LOC: ANHCSM 09:09
PROVIDERS: PCP Physician Assistant; Visit Provider Physician Assistant
DX: G47.10 Hypersomnia, unspecified (principal); G47.11 Idiopathic hypersomnia with long sleep time
CPT/HCPCS: 95805; 95810

== ENCOUNTER 2020-09-07 11:43 | Outpatient (CLI) | payer MEDICARE, SELFPAY ==
[2020-09-07 12:15] LABS: Add Urine Microscopic? YES; Appearance Urine Cloudy (Clear); Bacteria Urine Trace /hpf; Bilirubin Urine Negative (Negative); Blood Urine Negative (Negative); Color Urine Yellow (Yellow); Glucose Urine UA Negative (Negative); Ketones Urine Negative (Negative); Leukocyte Esterase Ur 1+ LEU/UL (NEGATIVE); Mucus Urine Rare /lpf; Nitrate Urine Positive (Negative); Protein Urine Negative (Negative); Specific Grav Ur 1.013 (1.001-1.035); Squamous Epithelial Cell Urine Rare /hpf (Few); Urobilinogen Urine Negative mg/dL (<2.0); WBC Urine 21-30 /hpf (0-3)
== END 2020-09-07 11:44 | disposition home or self-care (01) ==
PROVIDERS: PCP Physician Assistant; Visit Provider Physician Assistant
DX: R30.0 Dysuria (principal)
CPT/HCPCS: 81001; 87077; 87086; 87088; 87186

== ENCOUNTER 2020-09-09 10:45 | Outpatient (CLI) | payer MEDICARE, SELFPAY | END 2020-09-09 10:46 | disposition home or self-care (01) | LOC: ANHCOVIDVC 10:45 | PROVIDERS: PCP Physician Assistant | DX: Z23 Encounter for immunization (principal) | CPT/HCPCS: 0001A; 91300 ==

== ENCOUNTER 2020-09-30 13:06 | Outpatient (CLI) | payer MEDICARE, SELFPAY | END 2020-09-30 13:07 | disposition home or self-care (01) | LOC: ANHCOVIDVC 13:06 | PROVIDERS: PCP Physician Assistant | DX: Z23 Encounter for immunization (principal) | CPT/HCPCS: 0002A; 91300 ==

== ENCOUNTER 2020-11-15 11:37 | Outpatient (CLI) | payer MEDICARE, SELFPAY ==
[2020-11-15 12:54] LABS: Add Urine Microscopic? YES; Appearance Urine Cloudy (Clear); Bilirubin Urine Negative (Negative); Blood Urine 1+ (Negative); Color Urine Yellow (Yellow); Glucose Urine UA Negative (Negative); Ketones Urine Negative (Negative); Leukocyte Esterase Ur 3+ LEU/UL (NEGATIVE); Nitrate Urine Negative (Negative); Protein Urine Negative (Negative); RBC Urine 21-50 /hpf (0-2); Specific Grav Ur 1.006 (1.001-1.035); Urobilinogen Urine Negative mg/dL (<2.0); WBC Clumps Urine Present /HPF; WBC Urine >75 /hpf (0-3)
== END 2020-11-15 11:38 | disposition home or self-care (01) ==
PROVIDERS: PCP Physician Assistant; Visit Provider Physician Assistant
DX: R30.0 Dysuria (principal)
CPT/HCPCS: 81001; 87077; 87086; 87088; 87186

== ENCOUNTER 2020-12-30 07:28 | Outpatient (CLI) | payer MEDICARE, SELFPAY ==
--- NOTE | ~2020-12-30 | CT_ITS ---
EXAMINATION: CT lung screening EXAM DATE: 12/30/2020 07:50 INDICATION: Z87.891 - Personal history of nicotine dependence TECHNIQUE: Spiral low dose CT of the chest without contrast. Axial, coronal and sagittal images were reviewed. The dose-length product (DLP) for this examination was 62.71 mGy-cm. The exposure was ta ilored according to patient size (auto mA exposure control), and iterative reconstruction (ASIR) was used as additional dose reduction technique. Comparison is made to prior examination from 11/12/2019. FINDINGS: Appearance to biapical opacities unchanged compared to prior study. Pleural-based 4 mm rig ht lower lobe nodule on image 73 unchanged. No new or suspicious pulmonary nodules. Moderate to sever e emphysema and hyperinflation. Tracheobronchial tree is patent. There is no mediastinal, hilar or axillary lymphadenopathy. There are no pleural or pericardial effusions. There is no pneumothorax . Heart normal in size. There is moderate coronary arterial calcification, arterial sclerosis. Up per abdomen is unremarkable. There is thoracic spondylosis without osteoblastic or osteolytic lesio ns identified. Couple of thoracic chronic compression fractures. IMPRESSION: Lung-RADS category 2, benign appearance or behavior (<1% chance of malignancy); recommend continued LDCT screening in 1 year. Reviewed, dictated and finalized at location D.
--- NOTE | 2020-12-30 11:17 | WPDSIXMINUTE ---
Six Minute Walk Procedure Procedure Performed Pulmonary Stress Test (6 min walk) Six Minute Walk This is a 6 minutes walk test. The test was performed and interpreted in accordance with the 2014 ERS/ATS task force guidelines. The patient did stop 1 time for 20 seconds due to shortness of breath. Findings: The patient's resting room air oxygen saturation measured by pulse oximetry was 94% and her heart rate was 73 bpm. Patient ambulated for 244 meters and oxygen saturation remained 91 to 96%. Heart rate at the end of the study was 85 bpm. The patient did not qualify for supplemental oxygen at rest or with ambulation. There are no prior studies for comparison.
== END 2020-12-30 07:29 | disposition home or self-care (01) ==
LOC: ANHIMG 07:30
PROVIDERS: PCP Physician Assistant; Visit Provider Nurse Practitioner Family
DX: Z87.891 Personal history of nicotine dependence (principal); R06.02 Shortness of breath
CPT/HCPCS: 71271; 94618

== ENCOUNTER 2021-05-24 00:43 | Day surgery (SDC) | payer MEDICARE, SELFPAY ==
[2021-05-09 08:39] VITALS: BMI 22.6
--- NOTE | 2021-05-23 15:31 | PM.HPGS ---
History of Present Illness History of Present Illness Consent: Risks, benefits, and alternatives have been discussed and questions answered. Patient agrees to proceed with procedure. Chief complaint: neoplasm screening Narrative: Mary Kate Keith is a 76 year old female referred for colon cancer screening. Her last colonoscopy was 10 years ago Review of Systems Review of Systems: All systems reviewed & are unremarkable except as noted in HPI and below PMFSH Past Medical History Medical History COPD with emphysema Coronary artery calcification Calcifications noted on chest CT in October 2019. Echocardiogram showed normal left ventricular systolic function with an ejection fraction of 65 to 70% as well as grade 1 diastolic dysfunction. Gastroesophageal reflux disease History of tobacco abuse 45 pack year smoking history, quit in October 2019. Lumbar compression fracture Obstructive sleep apnea Resolved Osteopenia SVT (supraventricular tachycardia) Surgical History Surgical History History of bladder suspension procedure History of breast augmentation History of partial hysterectomy Family History Family History Mother Family history of heart disease in male family member before age 55 Cerebrovascular accident Heart attack Sibling Family history of heart disease in male family member before age 55 Heart attack Cerebrovascular accident Transitional cell carcinoma Father Cerebrovascular accident Social History Social History Social History: Surrogate decision maker: matias Avelar. Code status: Full code. Smoking packs per day: 1 Smoking cigarettes per day: 20.0 Years smoked: 63 Smoking pack-years: 63.00 Smoking status: Former smoker Tobacco type: cigarettes Second hand tobacco smoke exposure: No Smoking end date: 11/13/19 Additional smoking assessment comments: Smoked .75 packs per day but up to 1.5 - 2 packs per day for over a year. Alcohol intake: never Substance use: never Substance use type: does not use Living arrangements: with family Additional living arrangements comments: She has an adopted 11 yo son Mitch, and another soon-to-be adopted son 5 yo Carlos who she is on the process of adopting. Son Valentino lives 1 house away. Additional occupation/education comments: Worked 40 years [employer], , raised 8 children on her own. Gender identity (if verbalized by the patient): Female Sexual Orientation (if Verbalized by the Patient): Straight or Heterosexual Spiritual care concerns: No Meds Home Medications and Allergies Home Medications Medication Instructions Recorded Confirmed Type diltiazem HCl 180 mg PO DAILY #30 cap 01/27/20 05/09/21 Rx budesonide 0.5 mg/2 mL suspension 0.5 mg INHALATION BID #120 ml 08/22/20 05/09/21 Rx for nebulization pantoprazole 20 mg tablet,delayed 20 mg PO QAM #90 tablet 11/09/20 05/09/21 Rx release ipratropium bromide 0.02 % 2.5 ml INHALATION Q6H PRN #300 ml 01/23/21 05/09/21 Rx solution for inhalation rosuvastatin 20 mg tablet 20 mg PO DAILY #90 tablet 02/09/21 05/09/21 Rx nitrofurantoin macrocrystal 50 mg 50 mg PO .hs cap 03/29/21 05/09/21 History capsule fluticasone propionate [Flonase 2 spray INTRANASAL DAILY PRN 05/09/21 05/09/21 History Allergy Relief] levalbuterol HCl See Rx Instructions .ROUTE 05/09/21 05/09/21 History .COMPLEX PRN Allergies Allergy/AdvReac Type Severity Reaction Status Date / Time No Known Allergies Allergy Verified 05/24/21 10:13 Exam Resp: Auscultation: clear to auscultation bilaterally Cardio: Rate: regular rate Rhythm: regular rhythm GI: GI Palp: Yes Soft to palpation and No Tenderness to palpation present (GI) Assessment and Plan Assessment a
--- NOTE | 2021-05-24 08:10 | WPDANESEPPF ---
Anes - Initial Pre Proc Eval Procedure: Operation Date: 05/24/21 11:00 Proposed Procedures p Screening Colonoscopy - Jason Bah MD Date/Time: 05/24/21 08:10 Surgeon: Jason Bah MD Pre Op Diagnosis: neoplasm screening Patient Data Age: 76 Gender: F Height: 1.6 m Weight: 58 kg Allergies Allergy/AdvReac Type Severity Reaction Status Date / Time No Known Allergies Allergy Verified 05/24/21 10:13 Home Medications Medication Instructions Recorded Confirmed Type diltiazem HCl 180 mg PO DAILY #30 cap 01/27/20 05/09/21 Rx budesonide 0.5 mg/2 mL suspension 0.5 mg INHALATION BID #120 ml 08/22/20 05/09/21 Rx for nebulization pantoprazole 20 mg tablet,delayed 20 mg PO QAM #90 tablet 11/09/20 05/09/21 Rx release ipratropium bromide 0.02 % 2.5 ml INHALATION Q6H PRN #300 ml 01/23/21 05/09/21 Rx solution for inhalation rosuvastatin 20 mg tablet 20 mg PO DAILY #90 tablet 02/09/21 05/09/21 Rx nitrofurantoin macrocrystal 50 mg 50 mg PO .hs cap 03/29/21 05/09/21 History capsule fluticasone propionate [Flonase 2 spray INTRANASAL DAILY PRN 05/09/21 05/09/21 History Allergy Relief] levalbuterol HCl See Rx Instructions .ROUTE 05/09/21 05/09/21 History .COMPLEX PRN Patient hx anesthesia problems: none Family hx anesthesia problems: none Results Review: All pre-operative results and documents have been reviewed as part of the pre-operative evaluation. [facility] Past Medical History Medical History (Updated 05/24/21 @ 08:10 by Karri Craig DO) COPD with emphysema Coronary artery calcification Calcifications noted on chest CT in October 2019. Echocardiogram showed normal left ventricular systolic function with an ejection fraction of 65 to 70% as well as grade 1 diastolic dysfunction. Gastroesophageal reflux disease History of tobacco abuse 45 pack year smoking history, quit in October 2019. Lumbar compression fracture Obstructive sleep apnea Resolved Osteopenia SVT (supraventricular tachycardia) Surgical History Surgical History History of bladder suspension procedure History of breast augmentation History of partial hysterectomy Family History Family History Mother Family history of heart disease in male family member before age 55 Cerebrovascular accident Heart attack Sibling Family history of heart disease in male family member before age 55 Heart attack Cerebrovascular accident Transitional cell carcinoma Father Cerebrovascular accident Social History Social History Social History: Surrogate decision maker: matias Avelar. Code status: Full code. Smoking packs per day: 1 Smoking cigarettes per day: 20.0 Years smoked: 63 Smoking pack-years: 63.00 Smoking status: Former smoker Tobacco type: cigarettes Second hand tobacco smoke exposure: No Smoking end date: 11/13/19 Additional smoking assessment comments: Smoked .75 packs per day but up to 1.5 - 2 packs per day for over a year. Alcohol intake: never Substance use: never Substance use type: does not use Living arrangements: with family Additional living arrangements comments: She has an adopted 11 yo son Mitch, and another soon-to-be adopted son 5 yo Carlos who she is on the process of adopting. Son Valentino lives 1 house away. Additional occupation/education comments: Worked 40 years [employer], , raised 8 children on her own. Gender identity (if verbalized by the patient): Female Sexual Orientation (if Verbalized by the Patient): Straight or Heterosexual Spiritual care concerns: No Anes - Eval Final PreProcedure Day of Procedure 05/24/21 08:10 Patient weight: normal Heart: regular rate and rhythm Lungs: clear to auscultation and normal air movement Airway: Mallampati scale class 1 Neurological: al
[2021-05-24 10:14] VITALS: BP 131/96; PULSE 94; RESP 20; TEMP 36.7; O2SAT 98; BMI 21.7
[2021-05-24] MEDS: LACTATED RINGERS 1,000 ML 150 ML IV CONT (10:20)
[2021-05-24 11:42] VITALS: BP 80/54; PULSE 70; RESP 22; O2SAT 99
[2021-05-24 11:52] VITALS: BP 105/71; PULSE 68; RESP 19; O2SAT 100
[2021-05-24 12:02] VITALS: BP 120/87; PULSE 70; RESP 16; O2SAT 98
== END 2021-05-24 12:11 | disposition home or self-care (01) ==
PROVIDERS: PCP Physician Assistant; Visit Provider Internal Medicine Gastroenterology
PROC: 0DJD8ZZ Inspection of Lower Intestinal Tract, Via Natural or Artificial Opening Endoscopic (ICD-10-PCS; CPT 45378; principal; 2021-05-24 11:00)
DX: Z12.11 Encounter for screening for malignant neoplasm of colon (principal); K57.30 Diverticulosis of large intestine without perforation or abscess without bleeding; Z79.51 Long term (current) use of inhaled steroids; J44.9 Chronic obstructive pulmonary disease, unspecified; I25.10 Atherosclerotic heart disease of native coronary artery without angina pectoris; K21.9 Gastro-esophageal reflux disease without esophagitis; I47.1 Supraventricular tachycardia; Z87.891 Personal history of nicotine dependence
CPT/HCPCS: G0121; J7120

== ENCOUNTER 2021-06-19 23:53 | Inpatient (IN) | payer MEDICARE, SELFPAY ==
--- NOTE | ~2021-06-19 | CT_ITS ---
EXAMINATION: CT abdomen pelvis wo con DATE: 06/20/2021 17:58 INDICATION: Left lower quadrant pain TECHNIQUE: Computed tomography (CT) of the abdomen and pelvis was performed without intravenous contr ast. The dose-length product (DLP) was 251.73 mGy-cm. Automated exposure control and iterative recons truction technique were employed. COMPARISON: 01/16/2020 FINDINGS: There is moderate emphysema of the visualized lung bases. The heart size is normal. There i s a 5 mm cyst of the right hepatic lobe. The spleen, pancreas, and adrenal glands are normal. Hyperat tenuating material in the nondistended gallbladder likely represents vicarious excretion of contrast from earlier CT examination. Cysts of the kidneys measure up to 1.4 cm on the left. There is calcifie d atherosclerosis of the aorta and many of the other arteries. No pathologically enlarged abdominal o r pelvic lymph nodes are identified. No pathologically enlarged abdominal or pelvic lymph nodes are i dentified. There is a chronic burst fracture of L3. A chronic L1 compression fracture is noted. There is a compression fracture of L2 with approximately 30% loss of mid vertebral body height, new since the comparison examination. IMPRESSION: 1. No CT correlate for the patient's symptoms. 2. L2 compression fracture, new since the prior examination. Reviewed, dictated and finalized at location F. [employer]
--- NOTE | ~2021-06-19 | MR_ITS ---
EXAMINATION: MR thoracic spine wo con EXAM DATE: 06/23/2021 15:41 INDICATION: burst fracture TECHNIQUE: Multi-sequential, multiplanar MR images of the thoracic spine were obtained without contra st. Sagittal T1, T2, T2 fat saturation, axial T2 weighted images reviewed. There is no prior study for comparison. FINDINGS: Chronic mild to moderate T5 burst fracture, loss of posterior and anterior vertebral body h eight but without retropulsion. T8 has mild to moderate anterior wedging, mild loss of the posterior height, chronic burst fracture without retropulsion. There is mild thoracic disc disease. The disc ma rgins are confined to their endplates, no central canal or significant neural foraminal stenosis. Ove rall mild thoracic facet arthropathy. The spinal cord signal intensity and intrinsic morphology is no rmal. There are no suspicious marrow signal abnormalities. Several renal cysts. IMPRESSION: 1. Chronic T5, T8 burst fractures. 2. Mild thoracic spondylosis. 3. No stenosis. Reviewed, dictated and finalized at location A. ER
--- NOTE | ~2021-06-19 | XR_ITS ---
EXAMINATION: XR chest 1V portable DATE: 06/25/2021 13:08 INDICATION: Dyspnea. TECHNIQUE: A single frontal view of the chest was obtained. COMPARISON: Chest single view 06/20/2021, chest CT 06/20/2021 FINDINGS: There are lucencies in the lungs, consistent with emphysema. There is mild scarring at the lung apices. There is mild atelectasis at left lung base. No pleural effusion or pneumothorax. The he art size is normal. Breast implants are noted. IMPRESSION: 1. Severe emphysema. 2. Mild scarring at the lung apices and mild atelectasis at left lung base. Reviewed, dictated and finalized at location A. R OPERATOR HELPER
--- NOTE | ~2021-06-19 | MR_ITS ---
EXAMINATION: MR cervical spine wo [facility] EXAM DATE: 06/23/2021 15:41 INDICATION: burst fracture. TECHNIQUE: Multi-sequential, multiplanar MR images of the cervical spine were obtained without contra st. Axial T2, axial T2 MERGE sequence. Sagittal T1, T2, T2 fat saturation images also obtained. Th ere is no prior study for comparison. FINDINGS: There is moderate disc disease at C5-6, mild at C4-5 and C6-7. The vertebral bodies are al igned in the AP dimension. Mild to moderate chronic burst fracture of T5 without retropulsion. The sp inal cord signal intensity and intrinsic morphology is normal. Cervicomedullary junction is normal in appearance. There are no suspicious marrow signal abnormalities. Paraspinal soft tissue is unremar kable. Level by level evaluation: C2-C3: Disc does not extend beyond the endplate margin. Uncovertebral joint arthropathy: Mild left. Facet joint arthropathy: Moderate bilateral. Neural foraminal stenosis: No stenosis. Central canal stenosis: No stenosis. C3-C4: Disc does not extend beyond the endplate margin. Uncovertebral joint arthropathy: Mild bilateral. Facet joint arthropathy: Moderate bilateral. Neural foraminal stenosis: Mild left. Central canal stenosis: No stenosis. C4-C5: There is a mild diffuse disc bulge. Uncovertebral joint arthropathy: Mild bilateral. Facet joint arthropathy: Moderate to severe bilateral. Neural foraminal stenosis: Mild to moderate right, mild left. Central canal stenosis: No stenosis. C5-C6: There is a mild to moderate diffuse disc bulge. Uncovertebral joint arthropathy: Severe. Facet joint arthropathy: Severe. Neural foraminal stenosis: Severe. Central canal stenosis: Mild to moderate . Central canal measures 7 mm in mid sagittal AP diameter . C6-C7: There is a mild diffuse disc bulge. Uncovertebral joint arthropathy: Moderate to severe bilateral. Facet joint arthropathy: Moderate to severe. Neural foraminal stenosis: Moderate bilateral, left greater than right. Central canal stenosis: Mild. C7-T1: Disc does not extend beyond the endplate margin. Uncovertebral joint arthropathy: Moderate. Facet joint arthropathy: Mild to moderate. Neural foraminal stenosis: No stenosis. Central canal stenosis: No stenosis. IMPRESSION: 1. No acute cervical findings. 2. Severe spondylosis C5-6. 3. Chronic T5 burst fracture. Reviewed, dictated and finalized at location A. L OPPORTUNITY REPRESENTATIVE
--- NOTE | ~2021-06-19 | XR_ITS ---
EXAMINATION: XR chest 1V portable EXAM DATE: 06/20/2021 01:21 INDICATION: cough x3-4days,superior chest tightness,hx copd. TECHNIQUE: Portable AP frontal chest x-ray was obtained. Comparison is made to prior examination from 05/23/2020. FINDINGS: Increased density over both lower lung zones, at least partly from breast implants with cap sular retraction. No confluent consolidation, pneumothorax or pleural effusion suspected. Cardiomedia stinal silhouette is normal. The bones are osteopenic. There are bony degenerative changes. IMPRESSION: No acute cardiopulmonary findings. Reviewed, dictated and finalized at location A. HAT ENGINEER
--- NOTE | ~2021-06-19 | CT_ITS ---
EXAMINATION: CTA chest PE protocol EXAM DATE: 06/20/2021 02:43 INDICATION: Dimer positive. Cough. TECHNIQUE: Spiral CTA of the chest (pulmonary arteries) was performed with 100 cc Omnipaque 350 intr avenous contrast injection. Images were acquired during the pulmonary arterial phase. Coronal maxi mum intensity projection 3D-reconstructions were created by the technologist on dedicated workstation . Axial, coronal and sagittal reformatted images were reviewed. The dose-length product (DLP) for t his examination was 198.72 mGy-cm. The exposure was tailored according to patient size (auto mA exp osure control), and iterative reconstruction (ASIR) was used as additional dose reduction technique. Comparison is made to prior examination from 05/02/2021. FINDINGS: Pulmonary arteries are well opacified and without intraluminal filling defects. No thora cic aortic dissection. There is moderate emphysema. Again there are biapical opacities, stable in ap pearance consistent with scarring. No acute airspace disease identified. There are no pleural or per icardial effusions. Tracheobronchial tree is patent. There is no mediastinal, hilar or axillary l ymphadenopathy. There is no pneumothorax. Heart normal in size. There is moderate coronary patti rial calcification, arterial sclerosis. Upper abdomen is unremarkable. Chronic burst fractures of T5, T8 and L1 without retropulsion, unchanged. Breast implants. IMPRESSION: 1. No pulmonary emboli suspected. 2. Moderate emphysema. 3. Biapical scarring. 4. Chronic burst fractures. Reviewed, dictated and finalized at location A. CIPAL ANDROID DEVELOPER
--- NOTE | ~2021-06-19 | MR_ITS ---
EXAMINATION: MR lumbar spine wo con EXAM DATE: 06/23/2021 15:41 INDICATION: burst fracture TECHNIQUE: Multi-sequential, multiplanar MR images of the lumbar spine were obtained without contrast . Sagittal T1, T2, T2 fat saturation images. Axial T2 weighted images. Correlation made to abdomen pelvis CT 06/20/2021 FINDINGS: There is no edema to suggest acute fracture. Mild to moderate chronic burst fracture of L1, moderate to severe chronic burst fracture of L3, mild to moderate chronic burst fracture of L4 and m ild at L5. No appreciable retropulsion to any of these. The conus medullaris terminates at the L1/2 l evel and has normal signal intensity and morphology. The vertebral bodies are aligned in the AP dime nsion. Paraspinal soft tissue is unremarkable. Level by level evaluation: T12-L1: There is a mild diffuse disc bulge. Facet arthropathy: Mild. Neural foraminal stenosis: No stenosis. Central canal stenosis: No stenosis. L1-L2: There is a mild diffuse disc bulge. Facet arthropathy: Mild to moderate. Neural foraminal stenosis: Mild to moderate bilateral. Central canal stenosis: No stenosis. L2-L3: There is a moderate diffuse disc bulge. Facet arthropathy: Moderate . Ligamentum flavum enlargement. Neural foraminal stenosis: Moderate to severe left, moderate right. Central canal stenosis: Mild to moderate. L3-L4: There is a moderate diffuse disc bulge. Facet arthropathy: Moderate . Ligamentum flavum enlargement. Neural foraminal stenosis: Moderate left, mild to moderate right. Central canal stenosis: Mild to moderate. L4-L5: There is a moderate diffuse disc bulge. Facet arthropathy: Moderate to severe . Ligamentum flavum enlargement. Neural foraminal stenosis: Moderate bilateral. Central canal stenosis: Moderate to severe. L5-S1: There is a moderate diffuse disc bulge. Facet arthropathy: Severe. Neural foraminal stenosis: Mild to moderate right greater than left. Central canal stenosis: Moderate. IMPRESSION: 1. No acute lumbar findings. 2. Chronic burst fractures without retropulsion. 3. Lumbar spondylosis as detailed above. Reviewed, dictated and finalized at location A. CTOR HRIS
[2021-06-19 23:54] VITALS: BP 121/76; PULSE 110; RESP 22; O2SAT 94
[2021-06-20] VITALS (23 sets, daily range): BP systolic 97–140; BP diastolic 54–80; PULSE 75–109; RESP 18–31; TEMP 35.9–37.1; O2SAT 91–95; BMI 21.5
--- NOTE | 2021-06-20 00:06 | ED.GENADULT ---
HPI - General Adult General Chief complaint: Shortness of Breath/Dyspnea Stated complaint: SOB X 3-4 DAYS Source: patient and EMS Mode of arrival: EMS Limitations: no limitations History of Present Illness HPI narrative: Patient presents for evaluation of difficulty breathing for the last 3 to 4 days. She states she has an underlying history of COPD and emphysema. She is not on home O2. She has experienced a productive cough of white sputum and pleuritic chest pain. She states that her chest feels tight. No fever, chills, nausea, vomiting, abdominal pain, diarrhea. No personal history of Covid. She received both doses of her ACTV8me COVID vaccination and is due for her booster tomorrow. No recent sick contacts to her knowledge. She is a former smoker. She has been using neb treatments at home twice daily and her albuterol inhaler up to 8 times per day without significant improvement thereafter. She contacted EMS who gave her 125 mg of Solu-Medrol in route as well as another breathing treatment. No additional complaints or concerns. Related Data Home Medications Medication Instructions Recorded Confirmed nitrofurantoin macrocrystal 50 mg 50 mg PO .hs cap 03/29/21 05/09/21 capsule fluticasone propionate [Flonase 2 spray INTRANASAL DAILY PRN 05/09/21 05/09/21 Allergy Relief] levalbuterol HCl See Rx Instructions .ROUTE 05/09/21 05/09/21 .COMPLEX PRN Allergies Allergy/AdvReac Type Severity Reaction Status Date / Time No Known Allergies Allergy Verified 05/24/21 10:13 Review of Systems Review of Systems: CONSTITUTIONAL: Denies fever, chills, or sweats. EYES: Denies visual changes, redness, or discharge. ENT: Denies rhinorrhea, congestion, sore throat, or otalgia. CARDIOVASCULAR: Reports pleuritic chest pain and chest tightness. Denies edema and palpitations. RESPIRATORY: Reports productive cough of white sputum and shortness of breath. GASTROINTESTINAL: Denies abdominal pain, nausea, vomiting, or diarrhea. GENITOURINARY: Denies dysuria or hematuria. SKIN: Denies rash or itching. MUSCULOSKELETAL: Denies back pain, joint pain, or myalgia. NEUROLOGIC: Denies headache, numbness, dizziness, or weakness. PSYCHIATRIC: Denies anxiety or depression. [facility] Past Medical History Medical History COPD with emphysema Coronary artery calcification Calcifications noted on chest CT in October 2019. Echocardiogram showed normal left ventricular systolic function with an ejection fraction of 65 to 70% as well as grade 1 diastolic dysfunction. Gastroesophageal reflux disease History of tobacco abuse 45 pack year smoking history, quit in October 2019. Lumbar compression fracture Obstructive sleep apnea Resolved Osteopenia SVT (supraventricular tachycardia) Surgical History Surgical History History of bladder suspension procedure History of breast augmentation History of partial hysterectomy Family History Family History Mother Family history of heart disease in male family member before age 55 Cerebrovascular accident Heart attack Sibling Family history of heart disease in male family member before age 55 Heart attack Cerebrovascular accident Transitional cell carcinoma Father Cerebrovascular accident Social History Social History Social History: Surrogate decision maker: Valentino, son. Code status: Full code. Smoking packs per day: 1 Smoking cigarettes per day: 20.0 Years smoked: 63 Smoking pack-years: 63.00 Smoking status: Former smoker Tobacco type: cigarettes Second hand tobacco smoke exposure: No Smoking end date: 11/13/19 Additional smoking assessment comments: Smoked .75 packs per day but up to 1.5 - 2 packs per day for over a year. Alcohol intake
[2021-06-20] MEDS: ALBUTEROL SULFATE (*SP) AEROSOL 1 PUFF 2 PUFF INHALATION (00:21)
[2021-06-20] MEDS: ALBUTEROL SULFATE (*SP) INHALER 1 PUFF (00:21)
[2021-06-20] MEDS: SODIUM CHLORIDE 0.9% IV 1,000 ML 999 ML IV CONT (00:23)
[2021-06-20 00:29] LABS: Basophils Absolute Auto 0.1 K/mm3 (0.0-0.1); Basophils Percent Auto 1.2 % (0.2-1.2); Eosinophils Absolute Auto 1.5 K/mm3 (0-0.3); Eosinophils Percent Auto 14.5 % (0-4.4); Hematocrit 39.8 % (37.0-47.0); Hemoglobin 12.6 g/dL (12.0-15.0); Immature Granulocyte Absolute 0.03 K/mm3 (0.00-0.031); Immature Granulocyte Percent A 0.3 % (0-0.5); Lymphocytes Absolute Auto 2.68 K/mm3 (0.9-3.2); Lymphocytes Percent Auto 26.7 % (18.3-44.2); Mean Corpuscular HGB Conc 31.7 g/dl (32-36); Mean Corpuscular Volume 94.8 fl (80-100); Monocytes Absolute Auto 0.8 K/mm3 (0.1-0.6); Monocytes Percent Auto 7.9 % (2.6-8.5); Neutrophils Percent Auto 49.4 % (45.5-73.1); Platelet Count Result 235 k/mm3 (150-375); Red Cell Distribution Width 14.2 % (11.5-14.5)
[2021-06-20 00:39] LABS: INR 0.9; Prothrombin Time 12.4 Seconds (11.1-14.7)
[2021-06-20 00:40] LABS: Partial Thromboplastin Time 25.4 SECONDS (22.3-36.8)
[2021-06-20 00:42] LABS: Lactic Acid Reflex 1.2 mmol/L (0.7-2.1)
[2021-06-20 00:43] LABS: D Dimer 0.56 ug/mL (<0.48)
[2021-06-20 00:50] LABS: Alanine Aminotransferase 14 U/L (4-35); Albumin Level 4.5 g/dL (3.5-5.1); Alkaline Phosphatase 99 U/L (38-126); Anion Gap 8 mmol/L (8-16); Aspartate Amino Transferase 27 U/L (14-36); Bilirubin,Total 0.4 mg/dL (0.2-1.3); Blood Urea Nitrogen 19 mg/dL (7-17); Calcium 9.3 mg/dL (8.4-10.2); Carbon Dioxide 22 mmol/L (22-30); Chloride 106 mmol/L (98-107); Estimated Glomerular Filt Rate 54; Glucose 124 mg/dL (65-110); NT Pro B Type Natriuretic Pept 121 pg/mL (5-100); Potassium 3.7 mmol/L (3.4-5.0); Sodium 136 mmol/L (137-145)
[2021-06-20 01:00] LABS: Troponin I < 0.012 ng/mL (0.000-0.034)
[2021-06-20 01:03] LABS: EDCOVIDSCREEN Negative (Negative)
--- NOTE | 2021-06-20 01:07 | ECG_ITS ---
Measurements Intervals [place] Rate: 108 P: 54 WV: 195 QRS: -14 QRSD: 78 T: 55 QT: 301 QTc: 404 Interpretive Statements SINUS TACHYCARDIA LOW QRS VOLTAGE IN LIMB LEADS BORDERLINE T WAVE ABNORMALITY- INFERIOR LEADS BASELINE ARTIFACT- I, II, III, AVR, AVL, AVF, V1 ABNORMAL ECG Electronically Signed On 06-20-2021 7:40:51 DRY CLEANING COUNTER CLERK by Wilton Torrez D.O.
[2021-06-20] MEDS: IPRATROPIUM BR 0.02% INH SOLN 0.5 MG/2.5 ML VIAL INHALATION ×3 (02:04→15:10)
[2021-06-20] MEDS: ALBUTEROL SULFATE NEB 2.5 MG/0.5 ML INH 5 MG INHALATION ×2 (02:04→07:52)
--- NOTE | 2021-06-20 03:53 | ADMGEN ---
This patient, Mary Kate Keith, was admitted to 2 Medical Room 240-. Patient/family oriented to hospital policies and general routines including ID bracelet, bed and alarms, visiting hours, pain management, procedures, bathroom and other care routines, personal items, smoking policy, room service/diet, and visiting hours. Information on how to activate the Rapid Response Team has been discussed. Patient/Family are encouraged to report perceived risks to care and to ask questions if they do not understand what they are told or what they should do.
[2021-06-20 06:08] LABS: Troponin I < 0.012 ng/mL (0.000-0.034)
--- NOTE | 2021-06-20 07:40 | PM.IMHP ---
H&P: HPI History of Present Illness Date/Time: 06/20/21 07:40 Chief Complaint: Shortness of breath Narrative: Patient is a 76-year-old female with past medical history of COPD, GERD, SAGRARIO, SVT who presented to the ED with complaints of shortness of Breath. It all started about 4 days ago. She has been doing breathing treatments at home since it started which has not been helping her. She has also noticed increased cough with sputum changes. Sputum is white and has greatly increased and has notable changes. Patient also has increased wheezing which she stated nothing is helping. Patient does not use home O2 however she is currently on 3 L nasal cannula. She finally came into the hospital got too tired and weak. Patient denies being around sick contacts. Patient currently sees Marlo Smith for pulmonology. Patient stated she has been able to walk and move around. Another concern patient had was chest tightness. She states this started over the last 4 days as well is worse after she gets done coughing. She also stated that she is being treated for UTI and takes an antibiotic at night. She denies urgency and frequency and states that every time she goes it does feel like a full bladder empties. She denies visual and hearing changes. She denies headache, nausea, vomiting, sweats, fevers, chills, constipation, diarrhea, abdominal pain, abnormal swelling. Patient did states that she has had some appetite changes however her appetite is coming back slowly. She has also noticed that she gets lightheaded and dizzy especially after she has some coughing as well. Patient denies use of CPAP or BiPAP at home. Patient is being admitted to the hospital service in observation status. Talked to Dr. Kumar about patient who agrees with steroids and antibiotics. Recommends adding lovenox and neb treatments Review of Systems Review of Systems: All systems reviewed & are unremarkable except as noted in HPI and below [facility] Past Medical History Medical History COPD with emphysema Coronary artery calcification Calcifications noted on chest CT in October 2019. Echocardiogram showed normal left ventricular systolic function with an ejection fraction of 65 to 70% as well as grade 1 diastolic dysfunction. Gastroesophageal reflux disease History of tobacco abuse 45 pack year smoking history, quit in October 2019. Lumbar compression fracture Obstructive sleep apnea Resolved Osteopenia SVT (supraventricular tachycardia) Surgical History Surgical History History of bladder suspension procedure History of breast augmentation History of partial hysterectomy Family History Family History Mother Family history of heart disease in male family member before age 55 Cerebrovascular accident Heart attack Sibling Family history of heart disease in male family member before age 55 Heart attack Cerebrovascular accident Transitional cell carcinoma Father Cerebrovascular accident Social History Social History Social History: Surrogate decision maker: Valentino, matias. Code status: Full code. Smoking packs per day: 1 Smoking cigarettes per day: 20.0 Years smoked: 63 Smoking pack-years: 63.00 Smoking status: Former smoker Second hand tobacco smoke exposure: No Additional smoking assessment comments: Smoked .75 packs per day but up to 1.5 - 2 packs per day for over a year. Alcohol intake: never Substance use: never Substance use type: does not use Additional living arrangements comments: She has an adopted 11 yo son Mitch, and another soon-to-be adopted son 5 yo Aaden who she is on the process of adopting. Son Valentino lives 1 house away. Additional occupation/education comments: Worked 40 years [employer],
[2021-06-20] MEDS: OSELTAMIVIR PHOSPHATE 30 MG CAPSULE PO ×2 (08:32→20:45)
[2021-06-20] MEDS: guaiFENesin/DEXTROMETHORPHAN 10 ML UDC PO ×2 (10:33→16:58)
[2021-06-20] MEDS: ENOXAPARIN 40 MG/0.4 ML SYRINGE SUB-Q (11:02)
[2021-06-20] MEDS: dilTIAZem HCL CD 180 MG CAP.ER.24H PO (11:02)
[2021-06-20] MEDS: ROSUVASTATIN 10 MG TABLET 20 MG PO (11:03)
[2021-06-20] MEDS: PANTOPRAZOLE 40 MG TABLET PO (11:03)
[2021-06-20] MEDS: FLUTICASONE PROPIONATE 0.05% NA SPR 16 GM BTL (*BKC) 2 SPRAY NASAL (11:03)
[2021-06-20] MEDS: methylPREDNISolone SOD SUCC 40 MG VIAL IV PUSH ×2 (11:03→22:51)
--- NOTE | 2021-06-20 11:15 | PC.NURSE ---
Rajat Adames Shoe Reconditioner notified of pt coughing, increased sob, and audible wheezed. 02 3l sat 95%. New orders received.
[2021-06-20] MEDS: guaiFENesin/CODEINE (*CRX) 200/20 MG 10 ML SYRUP PO (11:30)
[2021-06-20 13:19] LABS: Add Urine Microscopic? YES; Appearance Urine Clear (Clear); Bilirubin Urine Negative (Negative); Blood Urine Negative (Negative); Color Urine Yellow (Yellow); Glucose Urine UA 3+ mg/dL (Negative); Ketones Urine Negative (Negative); Leukocyte Esterase Ur Negative LEU/UL (Negative); Nitrate Urine Negative (Negative); Protein Urine Negative (Negative); RBC Urine 0-2 /hpf (0-2); Squamous Epithelial Cell Urine Rare /hpf (Few); Urobilinogen Urine Negative mg/dL (<2.0); WBC Urine 0-3 /hpf
[2021-06-20 13:34] LABS: Specific Grav Ur 1.032 (1.001-1.035)
[2021-06-20] MEDS: ALBUTEROL SULFATE NEB 2.5 MG/0.5 ML INH INHALATION (15:09)
--- NOTE | 2021-06-20 15:10 | PCRCNOTE ---
Window of time for administration has passed. See next scheduled administration.
[2021-06-20] MEDS: BENZONATATE 100 MG CAPSULE PO (16:58)
[2021-06-20] MEDS: ACETAMINOPHEN 325 MG TABLET 650 MG PO ×2 (17:00→20:45)
--- NOTE | 2021-06-20 17:30 | PC.NURSE ---
Dr Harrington notified of pt c/o of sharp LLQ pain rating 01/31. New orders received
[2021-06-20] MEDS: BENZOCAINE/MENTHOL (*BKC) 18 EA LOZENGE 1 LOZENGE PO (18:14)
--- NOTE | 2021-06-20 22:29 | PCRCNOTE ---
Window of time for administration has passed. See next scheduled administration.
[2021-06-21] VITALS (22 sets, daily range): BP systolic 97–133; BP diastolic 55–74; PULSE 70–111; RESP 18–22; TEMP 35.7–36.6; O2SAT 93–99
[2021-06-21] MEDS: IPRATROPIUM BR 0.02% INH SOLN 0.5 MG/2.5 ML VIAL INHALATION ×5 (03:10→20:09)
[2021-06-21] MEDS: ALBUTEROL SULFATE NEB 2.5 MG/0.5 ML INH INHALATION ×5 (03:10→20:09)
[2021-06-21] MEDS: guaiFENesin/DEXTROMETHORPHAN 10 ML UDC PO ×3 (03:26→22:30)
[2021-06-21] MEDS: BENZOCAINE/MENTHOL (*BKC) 18 EA LOZENGE 1 LOZENGE PO (03:27)
[2021-06-21] MEDS: methylPREDNISolone SOD SUCC 40 MG VIAL IV PUSH ×2 (05:25→13:34)
[2021-06-21 05:56] LABS: Basophils Percent Auto 0.1 % (0.2-1.2); Hematocrit 35.4 % (37.0-47.0); Hemoglobin 11.3 g/dL (12.0-15.0); Immature Granulocyte Absolute 0.08 K/mm3 (0.00-0.031); Immature Granulocyte Percent A 0.7 % (0-0.5); Lymphocytes Absolute Auto 1.18 K/mm3 (0.9-3.2); Lymphocytes Percent Auto 10.2 % (18.3-44.2); Mean Corpuscular HGB Conc 31.9 g/dl (32-36); Mean Corpuscular Hemoglobin 29.8 pg (26-34); Mean Corpuscular Volume 93.4 fl (80-100); Mean Platelet Volume 11.7 fl (7.4-10.4); Monocytes Absolute Auto 0.3 K/mm3 (0.1-0.6); Monocytes Percent Auto 2.7 % (2.6-8.5); Neutrophils Percent Auto 86.3 % (45.5-73.1); Platelet Count Result 252 k/mm3 (150-375); Red Blood Count 3.79 M/mm3 (4.2-5.4); Red Cell Distribution Width 14.3 % (11.5-14.5); White Blood Count 11.6 K/mm3 (4.5-10.0)
[2021-06-21 06:14] LABS: Alanine Aminotransferase 17 U/L (4-35); Albumin Level 4.2 g/dL (3.5-5.1); Alkaline Phosphatase 72 U/L (38-126); Anion Gap 14 mmol/L (8-16); Aspartate Amino Transferase 26 U/L (14-36); Bilirubin,Total 0.3 mg/dL (0.2-1.3); Blood Urea Nitrogen 15 mg/dL (7-17); Calcium 9.4 mg/dL (8.4-10.2); Carbon Dioxide 21 mmol/L (22-30); Chloride 106 mmol/L (98-107); Estimated CRCL calculation 48 ml/min; Estimated Glomerular Filt Rate > 60; Glucose 150 mg/dL (65-110); Magnesium 2.2 mg/dL (1.6-2.3); Sodium 141 mmol/L (137-145)
[2021-06-21] MEDS: BENZONATATE 100 MG CAPSULE PO ×3 (08:08→16:30)
[2021-06-21] MEDS: dilTIAZem HCL CD 180 MG CAP.ER.24H PO (08:08)
[2021-06-21] MEDS: OSELTAMIVIR PHOSPHATE 30 MG CAPSULE PO ×2 (08:08→21:13)
[2021-06-21] MEDS: ENOXAPARIN 40 MG/0.4 ML SYRINGE SUB-Q (08:08)
[2021-06-21] MEDS: PANTOPRAZOLE 40 MG TABLET PO (08:09)
[2021-06-21] MEDS: ROSUVASTATIN 10 MG TABLET 20 MG PO (08:09)
[2021-06-21] MEDS: FLUTICASONE PROPIONATE 0.05% NA SPR 16 GM BTL (*BKC) 2 SPRAY NASAL (08:10)
[2021-06-21] MEDS: ACETAMINOPHEN 325 MG TABLET 650 MG PO (08:12)
--- NOTE | 2021-06-21 11:50 | PM.IMPN ---
Progress Note: A&P Assessment and Plan (1) COPD with exacerbation: Code(s): J44.1 - Chronic obstructive pulmonary disease with (acute) exacerbation Status: Acute Assessment and Plan: Continues to wheeze Hx of COPD Talked with Pulm about management, agrees at this time WBC is trending up, probably from the steroids Increased sputum with changes, increased wheezes, increased shortness of breath Sputum culture pending Start azithromycin and ceftriaxone Start Solumedrol 60mg IV Q8hr, continue to reevaluate for conversion to PO (2) Influenza A: Code(s): J10.1 - Influenza due to other identified influenza virus with other respiratory manifestations Status: Acute Assessment and Plan: ED found patient to be positive for Influenza A Continue tamiflu, could potentially late since she has been dealing with this for 4 days Symptom management Start Robitussin (3) Recurrent UTI: Code(s): N39.0 - Urinary tract infection, site not specified Status: Acute Assessment and Plan: Takes Macrobid at home which looks to be chronic Stated she dribbles Get UA with reflex, does not indicate need for culture as all is normal Ceftriaxone on board Monitor urine output (4) Hyperlipidemia: Code(s): E78.5 - Hyperlipidemia, unspecified Status: Acute Assessment and Plan: Continue home rosuvastatin 20mg PO daily (5) Eosinophilia: Code(s): D72.10 - Eosinophilia, unspecified Status: Acute Assessment and Plan: Seems to be resolved Eosin 0.0 Steroids on board Trend labs (6) Elevated d-dimer: Code(s): R79.89 - Other specified abnormal findings of blood chemistry Status: Acute Assessment and Plan: Dimer 0.56 CTA no PE Lovenox 40mg SubQ (7) Chest pain: Qualifiers: Chest pain type: unspecified Qualified Code(s): R07.9 - Chest pain, unspecified Code(s): R07.9 - Chest pain, unspecified Status: Acute Assessment and Plan: Seems to be resolved Probably related to pleuritic pain from coughing Trops are negative x 2 No active chest pain EKG ST 100 Chest xray no cardiopulmonary findings CTA no PE moderate emphysema, biapical scarring Tele monitor (8) Lumbar compression fracture: Code(s): S32.000A - Wedge compression fracture of unspecified lumbar vertebra, initial encounter for closed fracture Status: Acute Assessment and Plan: L2 fracture noted on ct New from last study Continue to monitor Pain control Time Spent With Patient Time with patient: Greater than 35 minutes Subjective Date/time seen: 06/21/21 11:50 Interval history: Date/Time: 06/20/21 07:40 Narrative: Patient is a 76-year-old female with past medical history of COPD, GERD, SAGRARIO, SVT who presented to the ED with complaints of shortness of Breath. It all started about 4 days ago. She has been doing breathing treatments at home since it started which has not been helping her. She has also noticed increased cough with sputum changes. Sputum is white and has greatly increased and has notable changes. Patient also has increased wheezing which she stated nothing is helping. Patient does not use home O2 however she is currently on 3 L nasal cannula. She finally came into the hospital got too tired and weak. Patient denies being around sick contacts. Patient currently sees Marlo Smith for pulmonology. Patient stated she has been able to walk and move around. Another concern patient had was chest tightness. She states this started over the last 4 days as well is worse after she gets done coughing. She also stated that she is being treated for UTI and takes an antibiotic at night. She denies urgency and frequency and states that every time she goes it does feel like a full bladder empties. She denies visual
--- NOTE | 2021-06-21 11:50 | P.PNIM_ITS ---
Progress Note: A&P Assessment and Plan (1) COPD with exacerbation: Code(s): J44.1 - Chronic obstructive pulmonary disease with (acute) exacerbation Status: Acute Assessment and Plan: * Continues to wheeze * Hx of COPD * Talked with Pulm about management, agrees at this time * WBC is trending up, probably from the steroids * Increased sputum with changes, increased wheezes, increased shortness of breath * Sputum culture pending * Start azithromycin and ceftriaxone * Start Solumedrol 60mg IV Q8hr, continue to reevaluate for conversion to PO (2) Influenza A: Code(s): J10.1 - Influenza due to other identified influenza virus with other respiratory manifestations Status: Acute Assessment and Plan: * ED found patient to be positive for Influenza A * Continue tamiflu, could potentially late since she has been dealing with this for 4 days * Symptom management * Start Robitussin (3) Recurrent UTI: Code(s): N39.0 - Urinary tract infection, site not specified Status: Acute Assessment and Plan: * Takes Macrobid at home which looks to be chronic * Stated she dribbles * Get UA with reflex, does not indicate need for culture as all is normal * Ceftriaxone on board * Monitor urine output (4) Hyperlipidemia: Code(s): E78.5 - Hyperlipidemia, unspecified Status: Acute Assessment and Plan: * Continue home rosuvastatin 20mg PO daily (5) Eosinophilia: Code(s): D72.10 - Eosinophilia, unspecified Status: Acute Assessment and Plan: * Seems to be resolved * Eosin 0.0 * Steroids on board * Trend labs (6) Elevated d-dimer: Code(s): R79.89 - Other specified abnormal findings of blood chemistry Status: Acute Assessment and Plan: * Dimer 0.56 * CTA no PE * Lovenox 40mg SubQ (7) Chest pain: Qualifiers: Chest pain type: unspecified Qualified Code(s): R07.9 - Chest pain, unspecified Code(s): R07.9 - Chest pain, unspecified Status: Acute Assessment and Plan: * Seems to be resolved * Probably related to pleuritic pain from coughing * Trops are negative x 2 * No active chest pain * EKG ST 100 * Chest xray no cardiopulmonary findings * CTA no PE moderate emphysema, biapical scarring * Tele monitor (8) Lumbar compression fracture: Code(s): S32.000A - Wedge compression fracture of unspecified lumbar vertebra, initial encounter for closed fracture Status: Acute Assessment and Plan: * L2 fracture noted on ct * New from last study * Continue to monitor * Pain control Time Spent With Patient Time with patient: Greater than 35 minutes Subjective Date/time seen: 06/21/21 11:50 Interval history: Date/Time: 06/20/21 07:40 Narrative: Patient is a 76-year-old female with past medical history of COPD, GERD, SAGRARIO, SVT who presented to the ED with complaints of shortness of Breath. It all started about 4 days ago. She has been doing breathing treatments at home since it started which has not been helping her. She has also noticed increased cough with sputum changes. Sputum is white and has greatly increased and has notable changes. Patient also has increased wheezing which she stated nothing is helping. Patient does not use home O2 however she is currently on 3
[2021-06-21] MEDS: methylPREDNISolone SOD SUCC 125 MG VIAL 60 MG IV PUSH (21:12)
[2021-06-22] VITALS (24 sets, daily range): BP systolic 105–120; BP diastolic 62–72; PULSE 70–98; RESP 16–20; TEMP 36.1–37.1; O2SAT 93–100
[2021-06-22] MEDS: ALBUTEROL SULFATE NEB 2.5 MG/0.5 ML INH INHALATION ×5 (00:03→20:43)
[2021-06-22] MEDS: IPRATROPIUM BR 0.02% INH SOLN 0.5 MG/2.5 ML VIAL INHALATION ×5 (00:04→20:43)
[2021-06-22] MEDS: ACETAMINOPHEN 325 MG TABLET 650 MG PO ×3 (00:25→21:45)
[2021-06-22 06:03] LABS: Basophils Percent Auto 0.1 % (0.2-1.2); Hematocrit 33.4 % (37.0-47.0); Hemoglobin 10.6 g/dL (12.0-15.0); Immature Granulocyte Absolute 0.09 K/mm3 (0.00-0.031); Immature Granulocyte Percent A 0.6 % (0-0.5); Lymphocytes Absolute Auto 1.17 K/mm3 (0.9-3.2); Lymphocytes Percent Auto 8.1 % (18.3-44.2); Mean Corpuscular HGB Conc 31.7 g/dl (32-36); Mean Corpuscular Hemoglobin 29.9 pg (26-34); Mean Corpuscular Volume 94.4 fl (80-100); Mean Platelet Volume 11.6 fl (7.4-10.4); Monocytes Absolute Auto 0.3 K/mm3 (0.1-0.6); Neutrophils Absolute Auto 12.9 K/mm3 (1.3-6.7); Neutrophils Percent Auto 89.2 % (45.5-73.1); Platelet Count Result 241 k/mm3 (150-375); Red Blood Count 3.54 M/mm3 (4.2-5.4); Red Cell Distribution Width 14.3 % (11.5-14.5); White Blood Count 14.4 K/mm3 (4.5-10.0)
[2021-06-22 06:32] LABS: Alanine Aminotransferase 14 U/L (4-35); Albumin Level 3.9 g/dL (3.5-5.1); Alkaline Phosphatase 65 U/L (38-126); Anion Gap 10 mmol/L (8-16); Aspartate Amino Transferase 25 U/L (14-36); Bilirubin,Total 0.2 mg/dL (0.2-1.3); Blood Urea Nitrogen 16 mg/dL (7-17); Carbon Dioxide 24 mmol/L (22-30); Chloride 104 mmol/L (98-107); Estimated CRCL calculation 48 ml/min; Estimated Glomerular Filt Rate > 60; Glucose 138 mg/dL (65-110); Magnesium 2.2 mg/dL (1.6-2.3); Potassium 4.2 mmol/L (3.4-5.0); Sodium 138 mmol/L (137-145)
[2021-06-22] MEDS: methylPREDNISolone SOD SUCC 125 MG VIAL 60 MG IV PUSH ×2 (06:39→13:11)
[2021-06-22] MEDS: ENOXAPARIN 40 MG/0.4 ML SYRINGE SUB-Q (09:34)
[2021-06-22] MEDS: ROSUVASTATIN 10 MG TABLET 20 MG PO (09:35)
[2021-06-22] MEDS: OSELTAMIVIR PHOSPHATE 30 MG CAPSULE PO ×2 (09:35→21:05)
[2021-06-22] MEDS: BENZONATATE 100 MG CAPSULE PO ×3 (09:35→16:38)
[2021-06-22] MEDS: PANTOPRAZOLE 40 MG TABLET PO (09:35)
[2021-06-22] MEDS: dilTIAZem HCL CD 180 MG CAP.ER.24H PO (09:35)
[2021-06-22] MEDS: BENZOCAINE/MENTHOL (*BKC) 18 EA LOZENGE 1 LOZENGE PO (11:57)
--- NOTE | 2021-06-22 12:25 | PM.IMPN ---
Progress Note: A&P Assessment and Plan (1) COPD with exacerbation: Code(s): J44.1 - Chronic obstructive pulmonary disease with (acute) exacerbation Status: Acute Assessment and Plan: Continues to wheeze Hx of COPD Talked with Pulm about management, agrees at this time WBC is trending up, probably from the steroids Increased sputum with changes, increased wheezes, increased shortness of breath Sputum culture found normal radha Start azithromycin and ceftriaxone Change Solu-Medrol to 40 mg IV b.i.d. (2) Influenza A: Code(s): J10.1 - Influenza due to other identified influenza virus with other respiratory manifestations Status: Acute Assessment and Plan: ED found patient to be positive for Influenza A Continue tamiflu, could potentially late since she has been dealing with this for 4 days Symptom management Start Robitussin (3) Recurrent UTI: Code(s): N39.0 - Urinary tract infection, site not specified Status: Acute Assessment and Plan: Takes Macrobid at home which looks to be chronic Stated she dribbles Get UA with reflex, does not indicate need for culture as all is normal Ceftriaxone on board Monitor urine output (4) Hyperlipidemia: Code(s): E78.5 - Hyperlipidemia, unspecified Status: Acute Assessment and Plan: Continue home rosuvastatin 20mg PO daily (5) Eosinophilia: Code(s): D72.10 - Eosinophilia, unspecified Status: Acute Assessment and Plan: Seems to be resolved Eosin 0.0 Steroids on board Trend labs (6) Elevated d-dimer: Code(s): R79.89 - Other specified abnormal findings of blood chemistry Status: Acute Assessment and Plan: Dimer 0.56 CTA no PE Lovenox 40mg SubQ (7) Chest pain: Qualifiers: Chest pain type: unspecified Qualified Code(s): R07.9 - Chest pain, unspecified Code(s): R07.9 - Chest pain, unspecified Status: Acute Assessment and Plan: Seems to be resolved Probably related to pleuritic pain from coughing Trops are negative x 2 No active chest pain EKG ST 100 Chest xray no cardiopulmonary findings CTA no PE moderate emphysema, biapical scarring Tele monitor (8) Lumbar compression fracture: Code(s): S32.000A - Wedge compression fracture of unspecified lumbar vertebra, initial encounter for closed fracture Status: Acute Assessment and Plan: L2 fracture noted on ct New from last study Continue to monitor Pain control Time Spent With Patient Time with patient: Greater than 35 minutes Subjective Date/time seen: 06/22/21 12:25 Interval history: Date/Time: 06/20/21 07:40 Narrative: Patient is a 76-year-old female with past medical history of COPD, GERD, SAGRARIO, SVT who presented to the ED with complaints of shortness of Breath. It all started about 4 days ago. She has been doing breathing treatments at home since it started which has not been helping her. She has also noticed increased cough with sputum changes. Sputum is white and has greatly increased and has notable changes. Patient also has increased wheezing which she stated nothing is helping. Patient does not use home O2 however she is currently on 3 L nasal cannula. She finally came into the hospital got too tired and weak. Patient denies being around sick contacts. Patient currently sees Marlo Smith for pulmonology. Patient stated she has been able to walk and move around. Another concern patient had was chest tightness. She states this started over the last 4 days as well is worse after she gets done coughing. She also stated that she is being treated for UTI and takes an antibiotic at night. She denies urgency and frequency and states that every time she goes it does feel like a full bladder empties. She denies visual and hearing changes. She d
--- NOTE | 2021-06-22 12:25 | P.PNIM_ITS ---
Progress Note: A&P Assessment and Plan (1) COPD with exacerbation: Code(s): J44.1 - Chronic obstructive pulmonary disease with (acute) exacerbation Status: Acute Assessment and Plan: * Continues to wheeze * Hx of COPD * Talked with Pulm about management, agrees at this time * WBC is trending up, probably from the steroids * Increased sputum with changes, increased wheezes, increased shortness of breath * Sputum culture found normal radha * Start azithromycin and ceftriaxone * Change Solu-Medrol to 40 mg IV b.i.d. (2) Influenza A: Code(s): J10.1 - Influenza due to other identified influenza virus with other respiratory manifestations Status: Acute Assessment and Plan: * ED found patient to be positive for Influenza A * Continue tamiflu, could potentially late since she has been dealing with this for 4 days * Symptom management * Start Robitussin (3) Recurrent UTI: Code(s): N39.0 - Urinary tract infection, site not specified Status: Acute Assessment and Plan: * Takes Macrobid at home which looks to be chronic * Stated she dribbles * Get UA with reflex, does not indicate need for culture as all is normal * Ceftriaxone on board * Monitor urine output (4) Hyperlipidemia: Code(s): E78.5 - Hyperlipidemia, unspecified Status: Acute Assessment and Plan: * Continue home rosuvastatin 20mg PO daily (5) Eosinophilia: Code(s): D72.10 - Eosinophilia, unspecified Status: Acute Assessment and Plan: * Seems to be resolved * Eosin 0.0 * Steroids on board * Trend labs (6) Elevated d-dimer: Code(s): R79.89 - Other specified abnormal findings of blood chemistry Status: Acute Assessment and Plan: * Dimer 0.56 * CTA no PE * Lovenox 40mg SubQ (7) Chest pain: Qualifiers: Chest pain type: unspecified Qualified Code(s): R07.9 - Chest pain, unspecified Code(s): R07.9 - Chest pain, unspecified Status: Acute Assessment and Plan: * Seems to be resolved * Probably related to pleuritic pain from coughing * Trops are negative x 2 * No active chest pain * EKG ST 100 * Chest xray no cardiopulmonary findings * CTA no PE moderate emphysema, biapical scarring * Tele monitor (8) Lumbar compression fracture: Code(s): S32.000A - Wedge compression fracture of unspecified lumbar vertebra, initial encounter for closed fracture Status: Acute Assessment and Plan: * L2 fracture noted on ct * New from last study * Continue to monitor * Pain control Time Spent With Patient Time with patient: Greater than 35 minutes Subjective Date/time seen: 06/22/21 12:25 Interval history: Date/Time: 06/20/21 07:40 Narrative: Patient is a 76-year-old female with past medical history of COPD, GERD, SAGRARIO, SVT who presented to the ED with complaints of shortness of Breath. It all started about 4 days ago. She has been doing breathing treatments at home since it started which has not been helping her. She has also noticed increased cough with sputum changes. Sputum is white and has greatly increased and has notable changes. Patient also has increased wheezing which she stated nothing is helping. Patient does not use home O2 however she is currently on 3 L nasal cannula. She finally c
[2021-06-22] MEDS: methylPREDNISolone SOD SUCC 40 MG VIAL IV PUSH (16:44)
[2021-06-22] MEDS: guaiFENesin/DEXTROMETHORPHAN 10 ML UDC PO (20:58)
--- NOTE | 2021-06-22 21:47 | PC.NURSE ---
Dr Andres notified pt having c/o abd pain, hot flash, and confusion, pt states they are all mild at this time. Pt had c/o these symptoms to provider during rounds this AM and there was concern for reaction to antibiotic. Dr. Andres does not believe this is a medication reaction at this time and ordered remaining dose to be completed.
[2021-06-23] VITALS (25 sets, daily range): BP systolic 105–132; BP diastolic 63–83; PULSE 72–100; RESP 14–24; TEMP 36–36.9; O2SAT 92–97
[2021-06-23] MEDS: IPRATROPIUM BR 0.02% INH SOLN 0.5 MG/2.5 ML VIAL INHALATION ×7 (00:43→20:47)
[2021-06-23] MEDS: ALBUTEROL SULFATE NEB 2.5 MG/0.5 ML INH INHALATION ×7 (00:43→20:47)
[2021-06-23 05:17] LABS: Basophils Percent Auto 0.1 % (0.2-1.2); Hematocrit 33.6 % (37.0-47.0); Hemoglobin 10.7 g/dL (12.0-15.0); Immature Granulocyte Absolute 0.12 K/mm3 (0.00-0.031); Immature Granulocyte Percent A 0.9 % (0-0.5); Lymphocytes Absolute Auto 1.26 K/mm3 (0.9-3.2); Lymphocytes Percent Auto 9.2 % (18.3-44.2); Mean Corpuscular HGB Conc 31.8 g/dl (32-36); Mean Corpuscular Hemoglobin 30.1 pg (26-34); Mean Corpuscular Volume 94.6 fl (80-100); Mean Platelet Volume 11.7 fl (7.4-10.4); Monocytes Absolute Auto 0.4 K/mm3 (0.1-0.6); Monocytes Percent Auto 3.2 % (2.6-8.5); Neutrophils Absolute Auto 11.9 K/mm3 (1.3-6.7); Neutrophils Percent Auto 86.6 % (45.5-73.1); Platelet Count Result 239 k/mm3 (150-375); Red Blood Count 3.55 M/mm3 (4.2-5.4); Red Cell Distribution Width 14.2 % (11.5-14.5); White Blood Count 13.7 K/mm3 (4.5-10.0)
[2021-06-23 05:35] LABS: Alanine Aminotransferase 17 U/L (4-35); Albumin Level 3.5 g/dL (3.5-5.1); Alkaline Phosphatase 61 U/L (38-126); Anion Gap 7 mmol/L (8-16); Aspartate Amino Transferase 26 U/L (14-36); Bilirubin,Total 0.2 mg/dL (0.2-1.3); Blood Urea Nitrogen 14 mg/dL (7-17); Calcium 8.7 mg/dL (8.4-10.2); Carbon Dioxide 28 mmol/L (22-30); Chloride 103 mmol/L (98-107); Estimated CRCL calculation 48 ml/min; Estimated Glomerular Filt Rate > 60; Glucose 129 mg/dL (65-110); Magnesium 2.3 mg/dL (1.6-2.3); Potassium 3.7 mmol/L (3.4-5.0); Sodium 138 mmol/L (137-145)
--- NOTE | 2021-06-23 06:00 | P.PNIM_ITS ---
Progress Note: A&P Assessment and Plan (1) COPD with exacerbation: Code(s): J44.1 - Chronic obstructive pulmonary disease with (acute) exacerbation Status: Acute Assessment and Plan: * Continues to wheeze * Hx of COPD * Talked with Pulm about management, agrees at this time * WBC is trending up, probably from the steroids * Increased sputum with changes, increased wheezes, increased shortness of breath * Sputum culture found normal radha * azithromycin and ceftriaxone, changed to amoxicillin PO Q12hr * Solu-Medrol to 40 mg IV BID, Change to 40mg pO daily (2) Influenza A: Code(s): J10.1 - Influenza due to other identified influenza virus with other respiratory manifestations Status: Acute Assessment and Plan: * ED found patient to be positive for Influenza A * Continue tamiflu, could potentially late since she has been dealing with this for 4 days * Symptom management * Start Robitussin (3) Recurrent UTI: Code(s): N39.0 - Urinary tract infection, site not specified Status: Acute Assessment and Plan: * Takes Macrobid at home which looks to be chronic * Stated she dribbles * Get UA with reflex, does not indicate need for culture as all is normal * Ceftriaxone on board * Monitor urine output (4) Hyperlipidemia: Code(s): E78.5 - Hyperlipidemia, unspecified Status: Acute Assessment and Plan: * Continue home rosuvastatin 20mg PO daily (5) Eosinophilia: Code(s): D72.10 - Eosinophilia, unspecified Status: Acute Assessment and Plan: * Seems to be resolved * Eosin 0.0 * Steroids on board * Trend labs (6) Elevated d-dimer: Code(s): R79.89 - Other specified abnormal findings of blood chemistry Status: Acute Assessment and Plan: * Dimer 0.56 * CTA no PE * Lovenox 40mg SubQ (7) Chest pain: Qualifiers: Chest pain type: unspecified Qualified Code(s): R07.9 - Chest pain, unspecified Code(s): R07.9 - Chest pain, unspecified Status: Acute Assessment and Plan: * Seems to be resolved * Probably related to pleuritic pain from coughing * Trops are negative x 2 * No active chest pain * EKG ST 100 * Chest xray no cardiopulmonary findings * CTA no PE moderate emphysema, biapical scarring * Tele monitor (8) Lumbar compression fracture: Code(s): S32.000A - Wedge compression fracture of unspecified lumbar vertebra, initial encounter for closed fracture Status: Acute Assessment and Plan: * L2 fracture noted on ct * New from last study * Continue to monitor * Pain control (9) Abdominal pain: Code(s): R10.9 - Unspecified abdominal pain Status: Acute Assessment and Plan: * Generalized abdominal pain noted * BM yesterday * Eating, no nausea, vomiting, or diarrhea * Could be from the cough or the antibiotics * Changed antibiotics * Trend symtpoms Time Spent With Patient Time with patient: 25 - 35 minutes Subjective Date/time seen: 06/23/21 06:00 Interval history: Date/Time: 06/20/21 07:40 Narrative: Patient is a 76-year-old female with past medical history of COPD, GERD, SAGRARIO, SVT who presented to the ED with complaints of shortness of Breath. It all started about 4 days ago. S
--- NOTE | 2021-06-23 06:00 | PM.IMPN ---
Progress Note: A&P Assessment and Plan (1) COPD with exacerbation: Code(s): J44.1 - Chronic obstructive pulmonary disease with (acute) exacerbation Status: Acute Assessment and Plan: Continues to wheeze Hx of COPD Talked with Pulm about management, agrees at this time WBC is trending up, probably from the steroids Increased sputum with changes, increased wheezes, increased shortness of breath Sputum culture found normal radha azithromycin and ceftriaxone, changed to amoxicillin PO Q12hr Solu-Medrol to 40 mg IV BID, Change to 40mg pO daily (2) Influenza A: Code(s): J10.1 - Influenza due to other identified influenza virus with other respiratory manifestations Status: Acute Assessment and Plan: ED found patient to be positive for Influenza A Continue tamiflu, could potentially late since she has been dealing with this for 4 days Symptom management Start Robitussin (3) Recurrent UTI: Code(s): N39.0 - Urinary tract infection, site not specified Status: Acute Assessment and Plan: Takes Macrobid at home which looks to be chronic Stated she dribbles Get UA with reflex, does not indicate need for culture as all is normal Ceftriaxone on board Monitor urine output (4) Hyperlipidemia: Code(s): E78.5 - Hyperlipidemia, unspecified Status: Acute Assessment and Plan: Continue home rosuvastatin 20mg PO daily (5) Eosinophilia: Code(s): D72.10 - Eosinophilia, unspecified Status: Acute Assessment and Plan: Seems to be resolved Eosin 0.0 Steroids on board Trend labs (6) Elevated d-dimer: Code(s): R79.89 - Other specified abnormal findings of blood chemistry Status: Acute Assessment and Plan: Dimer 0.56 CTA no PE Lovenox 40mg SubQ (7) Chest pain: Qualifiers: Chest pain type: unspecified Qualified Code(s): R07.9 - Chest pain, unspecified Code(s): R07.9 - Chest pain, unspecified Status: Acute Assessment and Plan: Seems to be resolved Probably related to pleuritic pain from coughing Trops are negative x 2 No active chest pain EKG ST 100 Chest xray no cardiopulmonary findings CTA no PE moderate emphysema, biapical scarring Tele monitor (8) Lumbar compression fracture: Code(s): S32.000A - Wedge compression fracture of unspecified lumbar vertebra, initial encounter for closed fracture Status: Acute Assessment and Plan: L2 fracture noted on ct New from last study Continue to monitor Pain control (9) Abdominal pain: Code(s): R10.9 - Unspecified abdominal pain Status: Acute Assessment and Plan: Generalized abdominal pain noted BM yesterday Eating, no nausea, vomiting, or diarrhea Could be from the cough or the antibiotics Changed antibiotics Trend symtpoms Time Spent With Patient Time with patient: 25 - 35 minutes Subjective Date/time seen: 06/23/21 06:00 Interval history: Date/Time: 06/20/21 07:40 Narrative: Patient is a 76-year-old female with past medical history of COPD, GERD, SAGRARIO, SVT who presented to the ED with complaints of shortness of Breath. It all started about 4 days ago. She has been doing breathing treatments at home since it started which has not been helping her. She has also noticed increased cough with sputum changes. Sputum is white and has greatly increased and has notable changes. Patient also has increased wheezing which she stated nothing is helping. Patient does not use home O2 however she is currently on 3 L nasal cannula. She finally came into the hospital got too tired and weak. Patient denies being around sick contacts. Patient currently sees Marlo Smith for pulmonology. Patient stated she has been able to walk and move around. Another concern patient had was chest tightne
[2021-06-23] MEDS: PANTOPRAZOLE 40 MG TABLET PO (09:25)
[2021-06-23] MEDS: predniSONE 20 MG TABLET 40 MG PO (09:25)
[2021-06-23] MEDS: dilTIAZem HCL CD 180 MG CAP.ER.24H PO (09:25)
[2021-06-23] MEDS: BENZONATATE 100 MG CAPSULE PO ×3 (09:25→16:10)
[2021-06-23] MEDS: ROSUVASTATIN 10 MG TABLET 20 MG PO (09:25)
[2021-06-23] MEDS: OSELTAMIVIR PHOSPHATE 30 MG CAPSULE PO ×2 (09:25→20:37)
[2021-06-23] MEDS: AMOXICILLIN/CLAVULANATE K 875-125 MG TAB 1 TABLET PO ×2 (09:26→20:37)
[2021-06-23] MEDS: ACETAMINOPHEN 325 MG TABLET 650 MG PO (09:26)
[2021-06-23] MEDS: ENOXAPARIN 40 MG/0.4 ML SYRINGE SUB-Q (09:35)
--- NOTE | 2021-06-23 10:04 | PCOTNOTE ---
Attempted to see pt. for eval. Pt. has new L2 compression fx. Spoke with hospitalist and nurse, regarding need for ortho consult. Awaiting follow-up orders
[2021-06-23] MEDS: BENZOCAINE/MENTHOL (*BKC) 18 EA LOZENGE 1 LOZENGE PO (13:54)
[2021-06-23] MEDS: HYDROcodone/acetaminophen (*CRX) 5-325 MG TABLET 1 TAB PO (13:55)
--- NOTE | 2021-06-23 15:04 | PCOTNOTE ---
Attempted to see pt for evaluation. Pt. away from room at MRI. Will attempt evaluation when available
[2021-06-23] MEDS: FLUTICASONE PROPIONATE 0.05% NA SPR 16 GM BTL (*BKC) 2 SPRAY NASAL (16:11)
[2021-06-24] VITALS (17 sets, daily range): BP systolic 107–139; BP diastolic 66–77; PULSE 63–100; RESP 16–24; TEMP 36.3–37.3; O2SAT 90–96
[2021-06-24] MEDS: HYDROcodone/acetaminophen (*CRX) 5-325 MG TABLET 1 TAB PO ×2 (01:36→20:47)
--- NOTE | 2021-06-24 02:53 | PC.NURSE ---
PT MISSES U-HAT WHEN URINATING
[2021-06-24 06:15] LABS: Basophils Percent Auto 0.1 % (0.2-1.2); Eosinophils Percent Auto 0.1 % (0-4.4); Hematocrit 32.4 % (37.0-47.0); Hemoglobin 10.3 g/dL (12.0-15.0); Immature Granulocyte Percent A 0.8 % (0-0.5); Lymphocytes Percent Auto 25.4 % (18.3-44.2); Mean Corpuscular HGB Conc 31.8 g/dl (32-36); Mean Corpuscular Hemoglobin 29.9 pg (26-34); Mean Corpuscular Volume 93.9 fl (80-100); Mean Platelet Volume 11.5 fl (7.4-10.4); Monocytes Absolute Auto 0.9 K/mm3 (0.1-0.6); Monocytes Percent Auto 7.8 % (2.6-8.5); Neutrophils Absolute Auto 7.8 K/mm3 (1.3-6.7); Neutrophils Percent Auto 65.8 % (45.5-73.1); Platelet Count Result 222 k/mm3 (150-375); Red Blood Count 3.45 M/mm3 (4.2-5.4); Red Cell Distribution Width 14.2 % (11.5-14.5); White Blood Count 11.8 K/mm3 (4.5-10.0)
[2021-06-24 06:45] LABS: Alanine Aminotransferase 19 U/L (4-35); Albumin Level 3.2 g/dL (3.5-5.1); Alkaline Phosphatase 55 U/L (38-126); Anion Gap 7 mmol/L (8-16); Aspartate Amino Transferase 27 U/L (14-36); Bilirubin,Total 0.2 mg/dL (0.2-1.3); Blood Urea Nitrogen 13 mg/dL (7-17); CRP < 0.5 mg/dL (<1.0); Calcium 8.4 mg/dL (8.4-10.2); Carbon Dioxide 28 mmol/L (22-30); Chloride 103 mmol/L (98-107); Estimated CRCL calculation 54 ml/min; Estimated Glomerular Filt Rate > 60; Glucose 94 mg/dL (65-110); Magnesium 2.3 mg/dL (1.6-2.3); Potassium 3.6 mmol/L (3.4-5.0); Sodium 138 mmol/L (137-145)
--- NOTE | 2021-06-24 07:30 | PM.IMPN ---
Progress Note: A&P Assessment and Plan (1) COPD with exacerbation: Code(s): J44.1 - Chronic obstructive pulmonary disease with (acute) exacerbation Status: Acute Assessment and Plan: Continues to wheeze, but not as bad Hx of COPD Talked with Pulm about management, agrees at this time WBC is trending down Increased sputum with changes, increased wheezes, increased shortness of breath Sputum culture found normal radha azithromycin and ceftriaxone, changed to amoxicillin PO Q12hr Solu-Medrol to 40 mg IV BID, Change to 40mg pO daily (2) Influenza A: Code(s): J10.1 - Influenza due to other identified influenza virus with other respiratory manifestations Status: Acute Assessment and Plan: ED found patient to be positive for Influenza A Continue tamiflu, could potentially late since she has been dealing with this for 4 days Symptom management Start Robitussin (3) Recurrent UTI: Code(s): N39.0 - Urinary tract infection, site not specified Status: Acute Assessment and Plan: Takes Macrobid at home which looks to be chronic Stated she dribbles Get UA with reflex, does not indicate need for culture as all is normal Ceftriaxone on board Monitor urine output (4) Hyperlipidemia: Code(s): E78.5 - Hyperlipidemia, unspecified Status: Acute Assessment and Plan: Continue home rosuvastatin 20mg PO daily (5) Eosinophilia: Code(s): D72.10 - Eosinophilia, unspecified Status: Acute Assessment and Plan: Seems to be resolved Eosin 0.0 Steroids on board Trend labs (6) Elevated d-dimer: Code(s): R79.89 - Other specified abnormal findings of blood chemistry Status: Acute Assessment and Plan: Dimer 0.56 CTA no PE Lovenox 40mg SubQ (7) Chest pain: Qualifiers: Chest pain type: unspecified Qualified Code(s): R07.9 - Chest pain, unspecified Code(s): R07.9 - Chest pain, unspecified Status: Acute Assessment and Plan: Seems to be resolved Probably related to pleuritic pain from coughing Trops are negative x 2 No active chest pain EKG ST 100 Chest xray no cardiopulmonary findings CTA no PE moderate emphysema, biapical scarring Tele monitor (8) Lumbar compression fracture: Code(s): S32.000A - Wedge compression fracture of unspecified lumbar vertebra, initial encounter for closed fracture Status: Acute Assessment and Plan: L2 fracture noted on ct New from last study Continue to monitor Pain control (9) Abdominal pain: Code(s): R10.9 - Unspecified abdominal pain Status: Acute Assessment and Plan: Generalized abdominal pain noted BM yesterday Eating, no nausea, vomiting, or diarrhea Could be from the cough or the antibiotics Changed antibiotics Trend symtpoms Subjective Date/time seen: 06/24/21 0730 Interval history: Date/Time: 06/20/21 07:40 Narrative: Patient is a 76-year-old female with past medical history of COPD, GERD, SAGRARIO, SVT who presented to the ED with complaints of shortness of Breath. It all started about 4 days ago. She has been doing breathing treatments at home since it started which has not been helping her. She has also noticed increased cough with sputum changes. Sputum is white and has greatly increased and has notable changes. Patient also has increased wheezing which she stated nothing is helping. Patient does not use home O2 however she is currently on 3 L nasal cannula. She finally came into the hospital got too tired and weak. Patient denies being around sick contacts. Patient currently sees Marlo Smith for pulmonology. Patient stated she has been able to walk and move around. Another concern patient had was chest tightness. She states this started over the last 4 days as well is worse after
--- NOTE | 2021-06-24 07:30 | P.PNIM_ITS ---
Progress Note: A&P Assessment and Plan (1) COPD with exacerbation: Code(s): J44.1 - Chronic obstructive pulmonary disease with (acute) exacerbation Status: Acute Assessment and Plan: * Continues to wheeze, but not as bad * Hx of COPD * Talked with Pulm about management, agrees at this time * WBC is trending down * Increased sputum with changes, increased wheezes, increased shortness of breath * Sputum culture found normal radha * azithromycin and ceftriaxone, changed to amoxicillin PO Q12hr * Solu-Medrol to 40 mg IV BID, Change to 40mg pO daily (2) Influenza A: Code(s): J10.1 - Influenza due to other identified influenza virus with other respiratory manifestations Status: Acute Assessment and Plan: * ED found patient to be positive for Influenza A * Continue tamiflu, could potentially late since she has been dealing with this for 4 days * Symptom management * Start Robitussin (3) Recurrent UTI: Code(s): N39.0 - Urinary tract infection, site not specified Status: Acute Assessment and Plan: * Takes Macrobid at home which looks to be chronic * Stated she dribbles * Get UA with reflex, does not indicate need for culture as all is normal * Ceftriaxone on board * Monitor urine output (4) Hyperlipidemia: Code(s): E78.5 - Hyperlipidemia, unspecified Status: Acute Assessment and Plan: * Continue home rosuvastatin 20mg PO daily (5) Eosinophilia: Code(s): D72.10 - Eosinophilia, unspecified Status: Acute Assessment and Plan: * Seems to be resolved * Eosin 0.0 * Steroids on board * Trend labs (6) Elevated d-dimer: Code(s): R79.89 - Other specified abnormal findings of blood chemistry Status: Acute Assessment and Plan: * Dimer 0.56 * CTA no PE * Lovenox 40mg SubQ (7) Chest pain: Qualifiers: Chest pain type: unspecified Qualified Code(s): R07.9 - Chest pain, unspecified Code(s): R07.9 - Chest pain, unspecified Status: Acute Assessment and Plan: * Seems to be resolved * Probably related to pleuritic pain from coughing * Trops are negative x 2 * No active chest pain * EKG ST 100 * Chest xray no cardiopulmonary findings * CTA no PE moderate emphysema, biapical scarring * Tele monitor (8) Lumbar compression fracture: Code(s): S32.000A - Wedge compression fracture of unspecified lumbar vertebra, initial encounter for closed fracture Status: Acute Assessment and Plan: * L2 fracture noted on ct * New from last study * Continue to monitor * Pain control (9) Abdominal pain: Code(s): R10.9 - Unspecified abdominal pain Status: Acute Assessment and Plan: * Generalized abdominal pain noted * BM yesterday * Eating, no nausea, vomiting, or diarrhea * Could be from the cough or the antibiotics * Changed antibiotics * Trend symtpoms Subjective Date/time seen: 06/24/2130 Interval history: Date/Time: 06/20/21 07:40 Narrative: Patient is a 76-year-old female with past medical history of COPD, GERD, SAGRARIO, SVT who presented to the ED with complaints of shortness of Breath. It all started about 4 days ago. She has been doing breathing treatments at home since it started which has no
[2021-06-24] MEDS: ENOXAPARIN 40 MG/0.4 ML SYRINGE SUB-Q (08:11)
[2021-06-24] MEDS: predniSONE 20 MG TABLET 40 MG PO (08:11)
[2021-06-24] MEDS: dilTIAZem HCL CD 180 MG CAP.ER.24H PO (08:11)
[2021-06-24] MEDS: PANTOPRAZOLE 40 MG TABLET PO (08:11)
[2021-06-24] MEDS: ROSUVASTATIN 10 MG TABLET 20 MG PO (08:11)
[2021-06-24] MEDS: BENZONATATE 100 MG CAPSULE PO ×3 (08:11→16:28)
[2021-06-24] MEDS: OSELTAMIVIR PHOSPHATE 30 MG CAPSULE PO ×2 (08:11→20:45)
[2021-06-24] MEDS: AMOXICILLIN/CLAVULANATE K 875-125 MG TAB 1 TABLET PO ×2 (08:11→20:45)
[2021-06-24] MEDS: BENZOCAINE/MENTHOL (*BKC) 18 EA LOZENGE 1 LOZENGE PO (08:12)
[2021-06-24] MEDS: IPRATROPIUM BR 0.02% INH SOLN 0.5 MG/2.5 ML VIAL INHALATION ×4 (08:25→20:05)
[2021-06-24] MEDS: ALBUTEROL SULFATE NEB 2.5 MG/0.5 ML INH INHALATION ×4 (08:25→20:05)
[2021-06-24] MEDS: polyethylene glycoL 3350 17 GM POWD.PACK PO (13:34)
[2021-06-24] MEDS: LORazepam (*CRX) 0.5 MG TABLET 0.25 MG PO (16:29)
[2021-06-24] MEDS: guaiFENesin/DEXTROMETHORPHAN 10 ML UDC PO (20:47)
[2021-06-25] VITALS (15 sets, daily range): BP systolic 100–144; BP diastolic 63–89; PULSE 72–96; RESP 16–20; TEMP 36.1–36.8; O2SAT 93–98
[2021-06-25] MEDS: ALBUTEROL SULFATE NEB 2.5 MG/0.5 ML INH INHALATION ×5 (00:04→23:39)
[2021-06-25] MEDS: IPRATROPIUM BR 0.02% INH SOLN 0.5 MG/2.5 ML VIAL INHALATION ×5 (00:04→23:39)
[2021-06-25] MEDS: HYDROcodone/acetaminophen (*CRX) 5-325 MG TABLET 1 TAB PO ×2 (08:24→17:36)
[2021-06-25] MEDS: predniSONE 20 MG TABLET 40 MG PO (08:25)
[2021-06-25] MEDS: AMOXICILLIN/CLAVULANATE K 875-125 MG TAB 1 TABLET PO ×2 (08:25→20:27)
[2021-06-25] MEDS: BENZONATATE 100 MG CAPSULE PO ×3 (08:26→17:37)
[2021-06-25] MEDS: polyethylene glycoL 3350 17 GM POWD.PACK PO (08:26)
[2021-06-25] MEDS: ROSUVASTATIN 10 MG TABLET 20 MG PO (08:26)
[2021-06-25] MEDS: ENOXAPARIN 40 MG/0.4 ML SYRINGE SUB-Q (08:26)
[2021-06-25] MEDS: dilTIAZem HCL CD 180 MG CAP.ER.24H PO (08:26)
[2021-06-25] MEDS: PANTOPRAZOLE 40 MG TABLET PO (08:26)
[2021-06-25 08:28] LABS: Basophils Percent Auto 0.3 % (0.2-1.2); Eosinophils Absolute Auto 0.4 K/mm3 (0-0.3); Eosinophils Percent Auto 2.7 % (0-4.4); Hematocrit 39.3 % (37.0-47.0); Hemoglobin 12.6 g/dL (12.0-15.0); Immature Granulocyte Absolute 0.22 K/mm3 (0.00-0.031); Immature Granulocyte Percent A 1.7 % (0-0.5); Lymphocytes Absolute Auto 4.57 K/mm3 (0.9-3.2); Lymphocytes Percent Auto 34.9 % (18.3-44.2); Mean Corpuscular HGB Conc 32.1 g/dl (32-36); Mean Corpuscular Hemoglobin 30.1 pg (26-34); Mean Platelet Volume 11.4 fl (7.4-10.4); Monocytes Absolute Auto 1.1 K/mm3 (0.1-0.6); Monocytes Percent Auto 8.5 % (2.6-8.5); Neutrophils Absolute Auto 6.8 K/mm3 (1.3-6.7); Neutrophils Percent Auto 51.9 % (45.5-73.1); Platelet Count Result 234 k/mm3 (150-375); Red Blood Count 4.18 M/mm3 (4.2-5.4); Red Cell Distribution Width 14.2 % (11.5-14.5); White Blood Count 13.1 K/mm3 (4.5-10.0)
[2021-06-25 08:38] LABS: Alanine Aminotransferase 27 U/L (4-35); Albumin Level 3.9 g/dL (3.5-5.1); Alkaline Phosphatase 64 U/L (38-126); Anion Gap 7 mmol/L (8-16); Aspartate Amino Transferase 29 U/L (14-36); Bilirubin,Total 0.3 mg/dL (0.2-1.3); Blood Urea Nitrogen 15 mg/dL (7-17); Calcium 9.1 mg/dL (8.4-10.2); Carbon Dioxide 28 mmol/L (22-30); Chloride 103 mmol/L (98-107); Estimated CRCL calculation 54 ml/min; Estimated Glomerular Filt Rate > 60; Glucose 86 mg/dL (65-110); Sodium 138 mmol/L (137-145)
--- NOTE | 2021-06-25 13:45 | P.PNIM_ITS ---
Progress Note: A&P Assessment and Plan (1) COPD with exacerbation: Code(s): J44.1 - Chronic obstructive pulmonary disease with (acute) exacerbation Status: Acute Assessment and Plan: * Continues to wheeze, but not as bad * Hx of COPD * Talked with Pulm about management, agrees at this time * WBC is trending down * Increased sputum with changes, increased wheezes, increased shortness of breath * Sputum culture found normal radha * azithromycin and ceftriaxone, changed to amoxicillin PO Q12hr * Solu-Medrol to 40 mg IV BID, Change to 40mg pO daily, changed back to IV 40mg IV BID for another day Patient still has a pretty good cough, swabbed for covid to make sure (2) Influenza A: Code(s): J10.1 - Influenza due to other identified influenza virus with other respiratory manifestations Status: Acute Assessment and Plan: * ED found patient to be positive for Influenza A * Continue tamiflu, could potentially late since she has been dealing with this for 4 days * Symptom management * Start Robitussin (3) Recurrent UTI: Code(s): N39.0 - Urinary tract infection, site not specified Status: Acute Assessment and Plan: * Takes Macrobid at home which looks to be chronic * Stated she dribbles * Get UA with reflex, does not indicate need for culture as all is normal * Ceftriaxone on board * Monitor urine output (4) Hyperlipidemia: Code(s): E78.5 - Hyperlipidemia, unspecified Status: Acute Assessment and Plan: * Continue home rosuvastatin 20mg PO daily (5) Eosinophilia: Code(s): D72.10 - Eosinophilia, unspecified Status: Acute Assessment and Plan: * Seems to be resolved * Eosin 0.0 * Steroids on board * Trend labs (6) Elevated d-dimer: Code(s): R79.89 - Other specified abnormal findings of blood chemistry Status: Acute Assessment and Plan: * Dimer 0.56 * CTA no PE * Lovenox 40mg SubQ (7) Chest pain: Qualifiers: Chest pain type: unspecified Qualified Code(s): R07.9 - Chest pain, unspecified Code(s): R07.9 - Chest pain, unspecified Status: Acute Assessment and Plan: * Seems to be resolved * Probably related to pleuritic pain from coughing * Trops are negative x 2 * No active chest pain * EKG ST 100 * Chest xray no cardiopulmonary findings * CTA no PE moderate emphysema, biapical scarring * Tele monitor (8) Lumbar compression fracture: Code(s): S32.000A - Wedge compression fracture of unspecified lumbar vertebra, initial encounter for closed fracture Status: Acute Assessment and Plan: * L2 fracture noted on ct * New from last study * Continue to monitor * Pain control (9) Abdominal pain: Code(s): R10.9 - Unspecified abdominal pain Status: Acute Assessment and Plan: * Generalized abdominal pain noted * BM yesterday * Eating, no nausea, vomiting, or diarrhea * Could be from the cough or the antibiotics * Changed antibiotics * Trend symtpoms Subjective Date/time seen: 06/25/21 1345 Interval history: Date/Time: 06/20/21 07:40 Narrative: Patient is a 76-year-old female with past medical history of COPD, GERD, SAGRARIO, SVT who presented to the ED with complaints of shortness of Breath. It a
--- NOTE | 2021-06-25 13:45 | PM.IMPN ---
Progress Note: A&P Assessment and Plan (1) COPD with exacerbation: Code(s): J44.1 - Chronic obstructive pulmonary disease with (acute) exacerbation Status: Acute Assessment and Plan: Continues to wheeze, but not as bad Hx of COPD Talked with Pulm about management, agrees at this time WBC is trending down Increased sputum with changes, increased wheezes, increased shortness of breath Sputum culture found normal radha azithromycin and ceftriaxone, changed to amoxicillin PO Q12hr Solu-Medrol to 40 mg IV BID, Change to 40mg pO daily, changed back to IV 40mg IV BID for another day Patient still has a pretty good cough, swabbed for covid to make sure (2) Influenza A: Code(s): J10.1 - Influenza due to other identified influenza virus with other respiratory manifestations Status: Acute Assessment and Plan: ED found patient to be positive for Influenza A Continue tamiflu, could potentially late since she has been dealing with this for 4 days Symptom management Start Robitussin (3) Recurrent UTI: Code(s): N39.0 - Urinary tract infection, site not specified Status: Acute Assessment and Plan: Takes Macrobid at home which looks to be chronic Stated she dribbles Get UA with reflex, does not indicate need for culture as all is normal Ceftriaxone on board Monitor urine output (4) Hyperlipidemia: Code(s): E78.5 - Hyperlipidemia, unspecified Status: Acute Assessment and Plan: Continue home rosuvastatin 20mg PO daily (5) Eosinophilia: Code(s): D72.10 - Eosinophilia, unspecified Status: Acute Assessment and Plan: Seems to be resolved Eosin 0.0 Steroids on board Trend labs (6) Elevated d-dimer: Code(s): R79.89 - Other specified abnormal findings of blood chemistry Status: Acute Assessment and Plan: Dimer 0.56 CTA no PE Lovenox 40mg SubQ (7) Chest pain: Qualifiers: Chest pain type: unspecified Qualified Code(s): R07.9 - Chest pain, unspecified Code(s): R07.9 - Chest pain, unspecified Status: Acute Assessment and Plan: Seems to be resolved Probably related to pleuritic pain from coughing Trops are negative x 2 No active chest pain EKG ST 100 Chest xray no cardiopulmonary findings CTA no PE moderate emphysema, biapical scarring Tele monitor (8) Lumbar compression fracture: Code(s): S32.000A - Wedge compression fracture of unspecified lumbar vertebra, initial encounter for closed fracture Status: Acute Assessment and Plan: L2 fracture noted on ct New from last study Continue to monitor Pain control (9) Abdominal pain: Code(s): R10.9 - Unspecified abdominal pain Status: Acute Assessment and Plan: Generalized abdominal pain noted BM yesterday Eating, no nausea, vomiting, or diarrhea Could be from the cough or the antibiotics Changed antibiotics Trend symtpoms Subjective Date/time seen: 06/25/21 1345 Interval history: Date/Time: 06/20/21 07:40 Narrative: Patient is a 76-year-old female with past medical history of COPD, GERD, SAGRARIO, SVT who presented to the ED with complaints of shortness of Breath. It all started about 4 days ago. She has been doing breathing treatments at home since it started which has not been helping her. She has also noticed increased cough with sputum changes. Sputum is white and has greatly increased and has notable changes. Patient also has increased wheezing which she stated nothing is helping. Patient does not use home O2 however she is currently on 3 L nasal cannula. She finally came into the hospital got too tired and weak. Patient denies being around sick contacts. Patient currently sees Marlo Smith for pulmonology. Patient stated she has been able to walk and move around. Delicia
[2021-06-25] MEDS: BENZOCAINE/MENTHOL (*BKC) 18 EA LOZENGE 1 LOZENGE PO (15:16)
[2021-06-25] MEDS: methylPREDNISolone SOD SUCC 40 MG VIAL IV PUSH (17:38)
--- NOTE | 2021-06-25 17:54 | PCRCNOTE ---
Window of time for administration has passed. See next scheduled administration.
[2021-06-25 17:55] LABS: EDCOVIDSCREEN Negative (Negative)
[2021-06-26] VITALS (13 sets, daily range): BP systolic 122–141; BP diastolic 84–89; PULSE 76–110; RESP 16–18; TEMP 36.1–37.1; O2SAT 87–97
[2021-06-26] MEDS: IPRATROPIUM BR 0.02% INH SOLN 0.5 MG/2.5 ML VIAL INHALATION ×3 (03:38→11:31)
[2021-06-26] MEDS: ALBUTEROL SULFATE NEB 2.5 MG/0.5 ML INH INHALATION ×3 (03:38→11:31)
[2021-06-26 06:10] LABS: Basophils Percent Auto 0.2 % (0.2-1.2); Hematocrit 38.8 % (37.0-47.0); Hemoglobin 12.6 g/dL (12.0-15.0); Immature Granulocyte Percent A 1.8 % (0-0.5); Lymphocytes Absolute Auto 1.72 K/mm3 (0.9-3.2); Lymphocytes Percent Auto 15.6 % (18.3-44.2); Mean Corpuscular HGB Conc 32.5 g/dl (32-36); Mean Corpuscular Hemoglobin 30.3 pg (26-34); Mean Corpuscular Volume 93.3 fl (80-100); Mean Platelet Volume 11.4 fl (7.4-10.4); Monocytes Absolute Auto 0.6 K/mm3 (0.1-0.6); Neutrophils Absolute Auto 8.5 K/mm3 (1.3-6.7); Neutrophils Percent Auto 77.4 % (45.5-73.1); Platelet Count Result 248 k/mm3 (150-375); Red Blood Count 4.16 M/mm3 (4.2-5.4)
[2021-06-26 06:23] LABS: Alanine Aminotransferase 29 U/L (4-35); Albumin Level 4.1 g/dL (3.5-5.1); Alkaline Phosphatase 66 U/L (38-126); Anion Gap 10 mmol/L (8-16); Aspartate Amino Transferase 29 U/L (14-36); Bilirubin,Total 0.2 mg/dL (0.2-1.3); Blood Urea Nitrogen 15 mg/dL (7-17); Calcium 9.2 mg/dL (8.4-10.2); Carbon Dioxide 27 mmol/L (22-30); Chloride 100 mmol/L (98-107); Estimated CRCL calculation 54 ml/min; Estimated Glomerular Filt Rate > 60; Glucose 142 mg/dL (65-110); Magnesium 2.3 mg/dL (1.6-2.3); Potassium 3.9 mmol/L (3.4-5.0); Sodium 137 mmol/L (137-145)
[2021-06-26] MEDS: ROSUVASTATIN 10 MG TABLET 20 MG PO (08:18)
[2021-06-26] MEDS: BENZONATATE 100 MG CAPSULE PO ×2 (08:18→11:47)
[2021-06-26] MEDS: dilTIAZem HCL CD 180 MG CAP.ER.24H PO (08:19)
[2021-06-26] MEDS: polyethylene glycoL 3350 17 GM POWD.PACK PO (08:19)
[2021-06-26] MEDS: ENOXAPARIN 40 MG/0.4 ML SYRINGE SUB-Q (08:19)
[2021-06-26] MEDS: AMOXICILLIN/CLAVULANATE K 875-125 MG TAB 1 TABLET PO (08:19)
[2021-06-26] MEDS: methylPREDNISolone SOD SUCC 40 MG VIAL IV PUSH (08:19)
[2021-06-26] MEDS: PANTOPRAZOLE 40 MG TABLET PO (08:19)
--- NOTE | 2021-06-26 10:50 | PM.DS ---
DS: Admitting Diagnosis Discharge Date 06/26/20 1050 Admitting Diagnosis COPD exacerbation/FLU DS: Discharge Diagnosis Discharge Diagnosis (1) COPD with exacerbation: Code(s): J44.1 - Chronic obstructive pulmonary disease with (acute) exacerbation Status: Acute Assessment and Plan: Wheezes seemed to be resolved Hx of COPD Talked with Pulm about management, agrees at this time WBC is trending down Increased sputum with changes, increased wheezes, increased shortness of breath Sputum culture found normal radha azithromycin and ceftriaxone, changed to amoxicillin PO Q12hr Solu-Medrol to 40 mg IV BID, Change to 40mg pO daily Walk test found 1L at rest/activity (2) Influenza A: Code(s): J10.1 - Influenza due to other identified influenza virus with other respiratory manifestations Status: Acute Assessment and Plan: ED found patient to be positive for Influenza A Continue tamiflu, could potentially late since she has been dealing with this for 4 days Symptom management Start Robitussin (3) Recurrent UTI: Code(s): N39.0 - Urinary tract infection, site not specified Status: Acute Assessment and Plan: Takes Macrobid at home which looks to be chronic Stated she dribbles Get UA with reflex, does not indicate need for culture as all is normal Ceftriaxone on board Monitor urine output (4) Hyperlipidemia: Code(s): E78.5 - Hyperlipidemia, unspecified Status: Acute Assessment and Plan: Continue home rosuvastatin 20mg PO daily (5) Eosinophilia: Code(s): D72.10 - Eosinophilia, unspecified Status: Acute Assessment and Plan: Seems to be resolved Eosin 0.0 Steroids on board Trend labs (6) Elevated d-dimer: Code(s): R79.89 - Other specified abnormal findings of blood chemistry Status: Acute Assessment and Plan: Dimer 0.56 CTA no PE Lovenox 40mg SubQ (7) Chest pain: Qualifiers: Chest pain type: unspecified Qualified Code(s): R07.9 - Chest pain, unspecified Code(s): R07.9 - Chest pain, unspecified Status: Acute Assessment and Plan: Seems to be resolved Probably related to pleuritic pain from coughing Trops are negative x 2 No active chest pain EKG ST 100 Chest xray no cardiopulmonary findings CTA no PE moderate emphysema, biapical scarring Tele monitor (8) Lumbar compression fracture: Code(s): S32.000A - Wedge compression fracture of unspecified lumbar vertebra, initial encounter for closed fracture Status: Acute Assessment and Plan: L2 fracture noted on ct New from last study Continue to monitor Pain control (9) Abdominal pain: Code(s): R10.9 - Unspecified abdominal pain Status: Acute Assessment and Plan: Generalized abdominal pain noted BM yesterday Eating, no nausea, vomiting, or diarrhea Could be from the cough or the antibiotics Changed antibiotics Trend symtpoms DS: Summary Hospital Course Hospital Course: Patient is a 76 year old female with a past mediacal history of COPD, tobacco abuse, SAGRARIO who presented the ED for shortness of breath. Patient stated prior to coming in she was having shortness of breath for about 4 days. She has been doing breathing treatments at home however nothing was affective. Upon arrival patient was treated with supplemental oxygen which has been titrated to room air. Patient still sats about 88-90%. Patient was also treated with IV steroids and antibiotics. Flu swab in the ED was positive and patient was treated with Tamiflu. Her biggest complaint is a cough. Patient was treated with cough syrup and lozenge which she stated was helpful. Patient also been complaining of abdominal pain which abdominal CT just showed an acute burst fracture of the L2. case was discussed
--- NOTE | 2021-06-26 10:50 | P.DS_ITS ---
DS: Admitting Diagnosis Discharge Date 06/26/20 1050 Admitting Diagnosis COPD exacerbation/FLU DS: Discharge Diagnosis Discharge Diagnosis (1) COPD with exacerbation: Code(s): J44.1 - Chronic obstructive pulmonary disease with (acute) exacerbation Status: Acute Assessment and Plan: * Wheezes seemed to be resolved * Hx of COPD * Talked with Pulm about management, agrees at this time * WBC is trending down * Increased sputum with changes, increased wheezes, increased shortness of breath * Sputum culture found normal radha * azithromycin and ceftriaxone, changed to amoxicillin PO Q12hr * Solu-Medrol to 40 mg IV BID, Change to 40mg pO daily Walk test found 1L at rest/activity (2) Influenza A: Code(s): J10.1 - Influenza due to other identified influenza virus with other respiratory manifestations Status: Acute Assessment and Plan: * ED found patient to be positive for Influenza A * Continue tamiflu, could potentially late since she has been dealing with this for 4 days * Symptom management * Start Robitussin (3) Recurrent UTI: Code(s): N39.0 - Urinary tract infection, site not specified Status: Acute Assessment and Plan: * Takes Macrobid at home which looks to be chronic * Stated she dribbles * Get UA with reflex, does not indicate need for culture as all is normal * Ceftriaxone on board * Monitor urine output (4) Hyperlipidemia: Code(s): E78.5 - Hyperlipidemia, unspecified Status: Acute Assessment and Plan: * Continue home rosuvastatin 20mg PO daily (5) Eosinophilia: Code(s): D72.10 - Eosinophilia, unspecified Status: Acute Assessment and Plan: * Seems to be resolved * Eosin 0.0 * Steroids on board * Trend labs (6) Elevated d-dimer: Code(s): R79.89 - Other specified abnormal findings of blood chemistry Status: Acute Assessment and Plan: * Dimer 0.56 * CTA no PE * Lovenox 40mg SubQ (7) Chest pain: Qualifiers: Chest pain type: unspecified Qualified Code(s): R07.9 - Chest pain, unspecified Code(s): R07.9 - Chest pain, unspecified Status: Acute Assessment and Plan: * Seems to be resolved * Probably related to pleuritic pain from coughing * Trops are negative x 2 * No active chest pain * EKG ST 100 * Chest xray no cardiopulmonary findings * CTA no PE moderate emphysema, biapical scarring * Tele monitor (8) Lumbar compression fracture: Code(s): S32.000A - Wedge compression fracture of unspecified lumbar vertebra, initial encounter for closed fracture Status: Acute Assessment and Plan: * L2 fracture noted on ct * New from last study * Continue to monitor * Pain control (9) Abdominal pain: Code(s): R10.9 - Unspecified abdominal pain Status: Acute Assessment and Plan: * Generalized abdominal pain noted * BM yesterday * Eating, no nausea, vomiting, or diarrhea * Could be from the cough or the antibiotics * Changed antibiotics * Trend symtpoms DS: Summary Hospital Course Hospital Course: Patient is a 76 year old female with a past mediacal history of COPD, tobacco abuse, SAGRARIO who presented the ED for shortness of breath. Patient stated prior to coming in she
--- NOTE | 2021-06-26 11:35 | HOMEO2EVAL ---
Evaluation was performed at [facility] Home Oxygen Evaluation RC: Home Oxygen (O2) Evaluation Start: 06/24/21 11:01 Freq: ONCE Status: Active Protocol: RPE Activity Type Activity Date Activity User E-Sign Co-Sign Detail Recorded Client Recorded Date Recorded By Document 06/26/21 11:15 KRM [id number] 06/26/21 11:35 KRM Document 06/26/21 11:17 [id number] [id number] 06/26/21 11:35 KRM Document 06/26/21 11:19 [email or web address] [id number] 06/26/21 11:35 KRM 06/26/21 06/26/21 06/26/21 11:15 11:17 11:19 Home O2 Evaluation Test Phase Resting Resting Exercise Oxygen Delivery Room Air Nasal Cannula Nasal Cannula Oxygen Flow Rate (L/min) 1 1 Pulse Oximetry (90-100 %) 87 L 93 89 L Pulse Rate (60-100 beats/min) 96 102 H 110 H Activity Tolerance Fair Ambulation Distance (feet) 25 Home Oxygen Evaluation Comments 1LPM AT REST AND WITH ACTIVITY Treatment Charges O2 Evaluation - Inpatient
--- NOTE | 2021-06-26 11:44 | PCRCNOTE ---
PT. REQUIRES 1LPM O2 AT REST AND WITH ACTIVITY. SET PT. UP WITH [facility] ([facility]) . INFO FAXED AND OFFICE CALLED. TANK TO BE DELIVERED TO THE ROOM.
== END 2021-06-26 14:00 | disposition home health service (06) | DRG 191 ==
LOC: ANHED 06-20 01:32 → ANH2MED 06-20 01:51
PROVIDERS: Admitting Provider Internal Medicine; Emergency Provider Nurse Practitioner; PCP Physician Assistant; Visit Provider Nurse Practitioner
DX: J43.9 Emphysema, unspecified (principal); S32.001A Stable burst fracture of unspecified lumbar vertebra, initial encounter for closed fracture; N39.0 Urinary tract infection, site not specified; I47.1 Supraventricular tachycardia; J10.1 Influenza due to other identified influenza virus with other respiratory manifestations; Z23 Encounter for immunization; Z20.822 Contact with and (suspected) exposure to COVID-19; E78.5 Hyperlipidemia, unspecified; D72.10 Eosinophilia, unspecified; R79.89 Other specified abnormal findings of blood chemistry; G47.33 Obstructive sleep apnea (adult) (pediatric); K21.9 Gastro-esophageal reflux disease without esophagitis; M85.80 Other specified disorders of bone density and structure, unspecified site; R10.9 Unspecified abdominal pain; X58.XXXA Exposure to other specified factors, initial encounter; Z87.891 Personal history of nicotine dependence
CPT/HCPCS: 36415; 71045; 71275; 72141; 72146; 72148; 74176; 80053; 81001; 83605; 83735; 83880; 84484; 85025; 85380; 85610; 85730; 86140; 87040; 87070; 87205; 87426; 87804; 90471; 90653; 93005; 94618; 94640; 96361; 96365; 96366; 96368; 96372; 96375; 96376; 97161; 97165; 99285; A9270; C9803; G0008; G0378; J0456; J0696; J1650; J2920; J2930; J7030; J7512; Q9967

== ENCOUNTER 2021-11-03 11:00 | Outpatient (CLI) | payer MEDICARE, SELFPAY ==
[2021-11-03 11:42] LABS: Hemoglobin 11.2 g/dL (12.0-15.0); Mean Corpuscular HGB Conc 31.1 g/dl (32-36); Mean Corpuscular Hemoglobin 29.6 pg (26-34); Mean Platelet Volume 11.6 fl (7.4-10.4); Platelet Count Result 248 k/mm3 (150-375); Red Blood Count 3.79 M/mm3 (4.2-5.4); Red Cell Distribution Width 13.9 % (11.5-14.5); White Blood Count 9.1 K/mm3 (4.5-10.0)
[2021-11-03 11:51] LABS: Alanine Aminotransferase 12 U/L (6-35); Albumin Level 4.2 g/dL (3.5-5.1); Alkaline Phosphatase 72 U/L (38-126); Anion Gap 6 mmol/L (8-16); Aspartate Amino Transferase 24 U/L (14-36); Bilirubin,Total 0.3 mg/dL (0.2-1.3); Blood Urea Nitrogen 10 mg/dL (7-17); Carbon Dioxide 28 mmol/L (22-30); Chloride 108 mmol/L (98-107); Cholesterol 153 mg/dL (0-200); Estimated Glomerular Filt Rate > 60; Glucose 91 mg/dL (65-110); HDL Direct 65 mg/dL; Sodium 142 mmol/L (137-145); Triglycerides 76 mg/dL (<150)
[2021-11-03 12:02] LABS: LDL Cholesterol Direct 55 mg/dL
[2021-11-03 12:54] LABS: Folic Acid 7.2 ng/mL (2.76->20)
== END 2021-11-03 11:01 | disposition home or self-care (01) ==
PROVIDERS: PCP Physician Assistant; Visit Provider Physician Assistant
DX: I25.10 Atherosclerotic heart disease of native coronary artery without angina pectoris (principal); I25.84 Coronary atherosclerosis due to calcified coronary lesion; R53.83 Other fatigue
CPT/HCPCS: 36415; 80053; 80061; 82607; 82746; 84443; 85027

== ENCOUNTER 2022-03-28 17:47 | Emergency (ER) | payer MEDICARE, SELFPAY ==
--- NOTE | ~2022-03-28 | XR_ITS ---
EXAMINATION: XR chest 2V Exam Date/Time: 03/28/2022 18:23 CDT HISTORY: mid sternal cp, sched for cardiac cath; hx of COPD Comparison: None available. RESULT: Lines, tubes, and devices: None. Lungs and pleura: Emphysematous and senescent changes.. Cardiomediastinal silhouette: Stable. Other: No acute osseous or upper abdominal finding. Chronic mid thoracic vertebral body fractures an d exaggerated kyphosis. IMPRESSION: No acute cardiopulmonary process. Reviewed, dictated and finalized at location K.
--- NOTE | 2022-03-28 17:48 | ECG_ITS ---
Measurements Intervals [place] Rate: 87 P: 63 WI: 147 QRS: -6 QRSD: 77 T: 56 QT: 355 QTc: 428 Interpretive Statements SINUS RHYTHM NONSPECIFIC T-WAVE ABNORMALITY BASELINE ARTIFACT PRESENT COMPARED TO ECG 06/20/2021 01:39:14 SINUS RHYTHM NOW PRESENT NO SIGNIFICANT CHANGES Electronically Signed On 03-29-2022 17:10:32 CDT by Ngoc Paredes M.D.
[2022-03-28 18:21] VITALS: BP 131/78; PULSE 80; RESP 16; TEMP 36.4; O2SAT 98
[2022-03-28 19:10] LABS: Basophils Absolute Auto 0.1 K/mm3 (0.0-0.1); Basophils Percent Auto 1.5 % (0.2-1.2); Eosinophils Absolute Auto 1.1 K/mm3 (0-0.3); Eosinophils Percent Auto 12.2 % (0-4.4); Hematocrit 41.3 % (37.0-47.0); Hemoglobin 13.1 g/dL (12.0-15.0); Immature Granulocyte Absolute 0.03 K/mm3 (0.00-0.031); Immature Granulocyte Percent A 0.3 % (0-0.5); Lymphocytes Percent Auto 25.7 % (18.3-44.2); Mean Corpuscular HGB Conc 31.7 g/dl (32-36); Mean Corpuscular Hemoglobin 29.4 pg (26-34); Mean Corpuscular Volume 92.6 fl (80-100); Mean Platelet Volume 11.9 fl (7.4-10.4); Monocytes Absolute Auto 0.7 K/mm3 (0.1-0.6); Monocytes Percent Auto 7.7 % (2.6-8.5); Neutrophils Absolute Auto 4.7 K/mm3 (1.3-6.7); Neutrophils Percent Auto 52.6 % (45.5-73.1); Platelet Count Result 302 k/mm3 (150-375); Red Blood Count 4.46 M/mm3 (4.2-5.4); Red Cell Distribution Width 13.9 % (11.5-14.5); White Blood Count 8.9 K/mm3 (4.5-10.0)
[2022-03-28 19:22] LABS: Alanine Aminotransferase 15 U/L (6-35); Albumin Level 4.8 g/dL (3.5-5.1); Alkaline Phosphatase 89 U/L (38-126); Anion Gap 9 mmol/L (8-16); Aspartate Amino Transferase 24 U/L (14-36); Bilirubin,Total 0.4 mg/dL (0.2-1.3); Blood Urea Nitrogen 9 mg/dL (7-17); Calcium 9.3 mg/dL (8.4-10.2); Carbon Dioxide 27 mmol/L (22-30); Chloride 102 mmol/L (98-107); Estimated CRCL calculation 40 ml/min; Estimated Glomerular Filt Rate > 60; Glucose 93 mg/dL (65-110); Lipase 116 U/L (23-300); Potassium 4.1 mmol/L (3.4-5.0); Sodium 138 mmol/L (137-145)
[2022-03-28 19:33] LABS: Troponin I < 0.012 ng/mL (0.000-0.034)
[2022-03-28 19:37] LABS: Hypochromasia 1+ (NORMAL); Platelet Estimate Adequate (Adequate)
[2022-03-28 20:00] LABS: Partial Thromboplastin Time 28.4 SECONDS (22.3-36.8); Prothrombin Time 13.2 Seconds (11.1-14.7)
[2022-03-28 21:15] LABS: Troponin I < 0.012 ng/mL (0.000-0.034)
[2022-03-28] MEDS: ALBUTEROL SULFATE NEB 2.5 MG/3 ML INH 15 MG INHALATION (22:28)
[2022-03-28] MEDS: IPRATROPIUM BR 0.02% INH SOLN 0.5 MG/2.5 ML VIAL 1 MG INHALATION (22:29)
[2022-03-28 22:35] VITALS: PULSE 72; RESP 16
--- NOTE | 2022-03-28 22:42 | ED.SOB ---
HPI - SOB/Dyspnea General Chief Complaint: Chest Pain Stated Complaint: CP Time Seen by Provider: 03/28/22 22:10 History of Present Illness HPI Narrative: Patient states that for the past week she has been having intermittent, worsening difficulty breathing and wheezing, she has been using her inhalers with some relief. Denies any chest pain, nausea or vomiting, numbness or tingling anywhere. Feels this is like her usual COPD exacerbation, no productive cough. Related Data Home Medications Medication Instructions Recorded Confirmed nitrofurantoin macrocrystal 50 mg 50 mg PO .hs 03/29/21 01/21/22 capsule (Macrodantin) levalbuterol HCl 0.63 mg/3 mL See Rx Instructions .Route 05/09/21 01/21/22 solution for nebulization .COMPLEX PRN Shortness Of Breath diltiazem HCl 180 mg 180 mg PO DAILY 06/20/21 01/21/22 capsule,extended release 24 hr (Cardizem CD) Allergies Allergy/AdvReac Type Severity Reaction Status Date / Time azithromycin AdvReac Severe confusion Verified 01/19/22 11:02 Review of Systems Review of Systems: CONST: No fever. HEENT: No sore throat C/V: No chest pain RESP: Shortness of breath GI: No nausea/vomiting : No dysuria. M/S: No joint pain. SKIN: No rash. NEURO: [No headache or focal numbness or weakness] PSYCH: [No depression] [facility] Past Medical History Medical History Acute respiratory failure with hypoxia COPD with emphysema Coronary artery calcification Calcifications noted on chest CT in October 2019. Echocardiogram showed normal left ventricular systolic function with an ejection fraction of 65 to 70% as well as grade 1 diastolic dysfunction. Gastroesophageal reflux disease History of tobacco abuse 45 pack year smoking history, quit in October 2019. Lumbar compression fracture Obstructive sleep apnea Resolved Osteopenia SVT (supraventricular tachycardia) Surgical History Surgical History History of bladder suspension procedure History of breast augmentation History of partial hysterectomy Family History Family History Mother Family history of heart disease in male family member before age 55 Cerebrovascular accident Heart attack Sibling Family history of heart disease in male family member before age 55 Heart attack Cerebrovascular accident Transitional cell carcinoma Father Cerebrovascular accident Social History Social History Social History: Surrogate decision maker: matias Avelar. Code status: Full code. Smoking packs per day: 1 Smoking cigarettes per day: 20.0 Years smoked: 63 Smoking pack-years: 63.00 Smoking status: Former smoker Tobacco type: cigarettes Second hand tobacco smoke exposure: Yes Smoking end date: 06/24/19 Additional smoking assessment comments: Smoked .75 packs per day but up to 1.5 - 2 packs per day for over a year. Alcohol intake: never Substance use: never Substance use type: does not use Additional living arrangements comments: Son Valentino lives 1 house away. Additional occupation/education comments: Worked 40 years [employer], , raised 8 children on her own. Gender identity (if verbalized by the patient): Female Sexual Orientation (if Verbalized by the Patient): Straight or Heterosexual Spiritual care concerns: No Exam Narrative: EXAMINATION OF ORGAN SYSTEMS/BODY AREAS: Constitutional: Vital signs per nursing GENERAL:[No acute distress, non-toxic appearing.] HEAD: Normal with no signs of head trauma. EYES: EOMI, conjunctiva normal ENT: Hearing grossly intact LUNGS: Extensive wheezing all lung schreiber, good air movement HEART: [Regular rate and rhythm] ABD: [Soft], [nontender to palpation] EXT: Normal range of motion SKIN: [No rashes or lesions.] NEURO: [Alert and oriented x 3. No gross focal s
[2022-03-28 22:53] VITALS: BP 146/92; PULSE 80; RESP 18; O2SAT 97
[2022-03-29 00:01] VITALS: PULSE 75; RESP 16
[2022-03-29 00:11] VITALS: O2SAT 98
[2022-03-29 00:12] VITALS: PULSE 88; RESP 18; O2SAT 100
[2022-03-29] MEDS: predniSONE 20 MG TABLET 40 MG PO (00:20)
== END 2022-03-29 00:45 | disposition home or self-care (01) ==
PROVIDERS: Emergency Medicine; Emergency Provider Emergency Medicine; PCP Physician Assistant
DX: J44.1 Chronic obstructive pulmonary disease with (acute) exacerbation (principal); K21.9 Gastro-esophageal reflux disease without esophagitis; M85.80 Other specified disorders of bone density and structure, unspecified site; Z90.711 Acquired absence of uterus with remaining cervical stump; Z87.891 Personal history of nicotine dependence; R94.31 Abnormal electrocardiogram [ECG] [EKG]; R07.9 Chest pain, unspecified
CPT/HCPCS: 36415; 71046; 80053; 83690; 84484; 85025; 85610; 85730; 93005; 94640; 99284; J7512

== ENCOUNTER 2022-04-02 01:47 | Day surgery (SDC) | payer MEDICARE, SELFPAY ==
[2022-04-02] VITALS (14 sets, daily range): BP systolic 107–130; BP diastolic 64–91; PULSE 51–81; RESP 14–20; TEMP 36.4–37.2; O2SAT 92–97; BMI 20.9
[2022-04-02 09:07] LABS: Basophils Percent Auto 0.2 % (0.2-1.2); Eosinophils Absolute Auto 0.1 K/mm3 (0-0.3); Eosinophils Percent Auto 0.7 % (0-4.4); Hematocrit 39.9 % (37.0-47.0); Hemoglobin 12.8 g/dL (12.0-15.0); Immature Granulocyte Absolute 0.07 K/mm3 (0.00-0.031); Immature Granulocyte Percent A 0.7 % (0-0.5); Lymphocytes Absolute Auto 3.83 K/mm3 (0.9-3.2); Lymphocytes Percent Auto 35.9 % (18.3-44.2); Mean Corpuscular HGB Conc 32.1 g/dl (32-36); Mean Corpuscular Hemoglobin 29.6 pg (26-34); Mean Corpuscular Volume 92.4 fl (80-100); Monocytes Percent Auto 9.3 % (2.6-8.5); Neutrophils Absolute Auto 5.7 K/mm3 (1.3-6.7); Neutrophils Percent Auto 53.2 % (45.5-73.1); Platelet Count Result 304 k/mm3 (150-375); Red Blood Count 4.32 M/mm3 (4.2-5.4); Red Cell Distribution Width 13.9 % (11.5-14.5); White Blood Count 10.7 K/mm3 (4.5-10.0)
[2022-04-02 09:25] LABS: Anion Gap 11 mmol/L (8-16); Blood Urea Nitrogen 14 mg/dL (7-17); Calcium 9.1 mg/dL (8.4-10.2); Carbon Dioxide 28 mmol/L (22-30); Chloride 102 mmol/L (98-107); Estimated CRCL calculation 37 ml/min; Estimated Glomerular Filt Rate 54; Glucose 86 mg/dL (65-110); Potassium 3.3 mmol/L (3.4-5.0); Sodium 141 mmol/L (137-145)
[2022-04-02 09:26] LABS: Platelet Estimate Adequate (Adequate); Poikilocytosis 1+ (NORMAL); Schistocytes None Seen (NORMAL)
--- NOTE | 2022-04-02 10:02 | WPDMODSED ---
Moderate Sedation Note-Pt Data Patient Data Diagnosis: Episodes of chest pain and dyspnea worsening recently Abnormal nuclear stress test Present Complaint: Intermittent chest pain Procedure to be performed/Plan: Left heart catheterization Allergies Allergy/AdvReac Type Severity Reaction Status Date / Time No Known Allergies Allergy Verified 04/02/22 09:22 Home Medications Medication Instructions Recorded Confirmed Type diltiazem HCl 180 mg 180 mg PO DAILY 06/20/21 04/02/22 History capsule,extended release 24 hr (Cardizem CD) rosuvastatin 20 mg tablet 20 mg PO DAILY #90 tabs 07/14/21 04/02/22 Rx albuterol sulfate 90 mcg/actuation 1 - 2 puff inhalation Q4-6H PRN 12/05/21 04/02/22 Rx aerosol inhaler shortness of breath or wheezing #8.5 grams pantoprazole 40 mg tablet,delayed 40 mg PO BID #180 tabs 01/18/22 04/02/22 Rx release cyanocobalamin (vitamin B-12) 1,000 mcg PO DAILY #90 tabs 01/19/22 04/02/22 Rx 1,000 mcg tablet budesonide 0.5 mg/2 mL suspension See Rx Instructions .Route 02/22/22 04/02/22 Rx for nebulization .COMPLEX #120 mL albuterol sulfate 90 mcg/actuation 2 puff inhalation QID PRN 03/28/22 04/02/22 Rx aerosol inhaler shortness of breath or wheezing #8.5 grams trimethoprim 100 mg tablet 100 mg PO HS 04/02/22 04/02/22 History Current Medications: Active Medications Sodium Chloride (Normal Saline Iv) 500 mls @ 100 mls/hr IV CONT .Q5H ANT Sedation/Anesthesia: No previous sedation/anesthesia problems (including family history). [facility] Past Medical History Medical History Acute respiratory failure with hypoxia COPD with emphysema Coronary artery calcification Calcifications noted on chest CT in October 2019. Echocardiogram showed normal left ventricular systolic function with an ejection fraction of 65 to 70% as well as grade 1 diastolic dysfunction. Gastroesophageal reflux disease History of tobacco abuse 45 pack year smoking history, quit in October 2019. Lumbar compression fracture Obstructive sleep apnea Resolved Osteopenia SVT (supraventricular tachycardia) Surgical History Surgical History History of bladder suspension procedure History of breast augmentation History of partial hysterectomy Family History Family History Mother Family history of heart disease in male family member before age 55 Cerebrovascular accident Heart attack Sibling Family history of heart disease in male family member before age 55 Heart attack Cerebrovascular accident Transitional cell carcinoma Father Cerebrovascular accident Social History Social History Social History: Surrogate decision maker: matias Avelar. Code status: Full code. Smoking packs per day: 1 Smoking cigarettes per day: 20.0 Years smoked: 63 Smoking pack-years: 63.00 Smoking status: Former smoker Tobacco type: cigarettes Second hand tobacco smoke exposure: Yes Smoking end date: 06/24/19 Additional smoking assessment comments: Smoked .75 packs per day but up to 1.5 - 2 packs per day for over a year. Alcohol intake: never Substance use: never Substance use type: does not use Additional living arrangements comments: Matias Avelar lives 1 house away. Additional occupation/education comments: Worked 40 years [employer], , raised 8 children on her own. Gender identity (if verbalized by the patient): Female Sexual Orientation (if Verbalized by the Patient): Straight or Heterosexual Spiritual care concerns: No Mod Sed Physical Exam Physical Exam Pre Procedural Exam: Normal: Appearance, Nose, Neck, Throat, Airway, Lungs, Heart Size, Heart Rate, Heart Rhythm, Neuro Exam and Extremities Hours since solid foods: 12 Hours since liquid intake: 12 Mallampati Classification: class II
--- NOTE | 2022-04-02 10:04 | PM.IMHP ---
H&P: HPI History of Present Illness Date/Time: 04/02/22 10:04 Chief Complaint: Intermittent chest pain increasing FUNEZ Narrative: This is a 77-year-old woman who follows with 1 of my partners the schedule for me to perform a coronary angiogram done as an outpatient today because of a recently performed nuclear stress test which was abnormal. The patient has a history of chronic obstructive lung disease and esophageal reflux as well. She has been followed by my partner, Dr. Mane because of history of intermittent supraventricular tachycardia. Because of symptoms of shortness of breath and she would and chest pain she was referred for an angiogram which I performed in January of 2020. At that time she had no significant coronary artery disease with minimal plaquing in the RCA and proximal LAD. She has been managed medically and was treated with diltiazem for the SVT. During a recent office visit she was reporting symptoms of worsening dyspnea and chest heaviness. She does report the symptoms respond favorably to her bronchodilator inhalers. A nuclear stress test however was performed on 03/23/2022 which demonstrated normal left ventricular contractility. 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 With these findings she is referred back today for another angiogram. Review of Systems Constitutional: Constitutional: Reports no additional constitutional complaints Eyes: Eyes: Reports no additional eye complaints ENT: Reports system reviewed and no additional complaints, except as documented Cardiovascular: Cardiovascular: Reports as per HPI Respiratory: Respiratory: Reports as per HPI Gastrointestinal: Gastrointestinal: Reports no additional gastrointestinal complaints Musculoskeletal: Musculoskeletal: Reports no additional musculoskeletal complaints Integumentary/Breasts: Skin/Breast: Reports system reviewed and no additional complaints, except as docu Neurologic: Reports system reviewed and no additional complaints, except as documented [facility] Past Medical History Medical History Acute respiratory failure with hypoxia COPD with emphysema Coronary artery calcification Calcifications noted on chest CT in October 2019. Echocardiogram showed normal left ventricular systolic function with an ejection fraction of 65 to 70% as well as grade 1 diastolic dysfunction. Gastroesophageal reflux disease History of tobacco abuse 45 pack year smoking history, quit in October 2019. Lumbar compression fracture Obstructive sleep apnea Resolved Osteopenia SVT (supraventricular tachycardia) Surgical History Surgical History History of bladder suspension procedure History of breast augmentation History of partial hysterectomy Family History Family History Mother Family history of heart disease in male family member before age 55 Cerebrovascular accident Heart attack Sibling Family history of heart disease in male family member before age 55 Heart attack Cerebrovascular accident Transitional cell carcinoma Father Cerebrovascular accident Social History Social History Social History: Surrogate decision maker: matias Avelar. Code status: Full code. Smoking packs per day: 1 Smoking cigarettes per day: 20.0 Years smoked: 63 Smoking pack-years: 63.00 Smoking status: Former smoker Tobacco type: cigarettes Second hand tobacco smoke exposure: Yes Smoking end date: 06/24/19 Additional smoking assessment comments: Smoked .75 packs per day but up to 1.5 - 2 packs per day for over a year. Alcohol intake: never Substance use: never Substance use type: does not use Additional living arrangements comments: Son Valentino lives 1 house away. Additional occupation/edu
--- NOTE | 2022-04-02 11:01 | P.PCNCC_ITS ---
Cardiac Cath Procedure Note Date of procedure:: 04/02/22 Performing physician:: Cristian Brunner MD Indication:: abnormal stress test Brief clinical history:: this is a 77-year-old woman admitted to the hospital as an outpatient today for elective coronary angiography because of abnormal nuclear stress test. She was found to years ago and angiographically very mild coronary plaquing. Worsening symptoms of FUNEZ and chest pain if lead to an abnormal some dress test demonstrating evidence of infarction of the base of her anterior wall. Procedure Procedure performed:: Left ventriculography coronary angiography Sedation/Medication given:: fentanyl 25 mg Versed 2 mg case start time 10:36 a.m. case end time 12:48 p.m. sedation provided by Cassi Meehan RN, trained observer Access site:: right femoral artery Estimated blood loss:: 20 cc Procedure note:: patient was brought to the cardiac catheterization lab in postabsorptive state where the right femoral triangle was prepared and draped in the fashion. Anesthesia was provided with 1% lidocaine infiltrated locally. Using the modified Seldinger technique the femoral artery was punctured and a 5 [place] vascular sheath was placed. After this left heart catheterization was carried out. A 5 [place] angled pigtail catheter was used to measure left-sided hemodyna mics and to inject ventriculogram are projection. Following this a 5 [place] FL4 catheter was used to engage and inject the left coronary artery and a 5 [place] JR4 catheter was used to engage and inject the right coronary artery. The cineangiograms were reviewed and the case was terminated. An angiogram was done of the femoral artery through the sheath. There was some calcific atherosclerotic plaquing at the site of the puncture I elected therefore not to deploy an Angio-Seal device the sheath will be removed with direct manual compression. She left the woven label designer with no evidence of any complications and there was no sign of groin hematoma. Findings:: Hemodynamics: Central aortic pressure is 168/80 left ventricle 168/5 end- diastolic pressure 12 there is no gradient upon pullback across the aortic valve. Left ventricle: The LV is normal in size all segments contract appropriately the global ejection fraction is 60-65% by visual estimation the left main coronary artery is large in caliber and widely patent the left anterior descending is a large caliber vessel extending down to around the apex. There is moderate adventitial calcium noted in the proximal LAD. There is minimal luminal irregularities in the proximal LAD but no functional stenosis is identified. Circumflex is a large caliber artery giving rise to the marginal branches. The circumflex smooth and angiographically free of disease. Right coronary artery is large in caliber and dominant to the posterior circulation. The proximal right and 2nd portion of the RCA there are mild luminal irregularities but no flow-limiting disease is identified. Conclusion:: 1. Right coronary dominant circulation with minimal atherosclerosis of the proximal LAD as well as of the proximal and mid RCA. Angiographically no progression of this disease over the last 2 year 2. preserved left ventricular systolic function 3. patient's symptoms are not related to myocardial ischemia and her nuclear stress test appears to be a false-positive Cristian Brunner MD FACC
--- NOTE | 2022-04-02 13:02 | SUR.PHASEII ---
patient's cough is becoming more frequent and worrisome with groin site. she has been educated and instructed to hold groin when coughing and needs reminding to do so. Patient using home inhaler to help with her wheezing and coughing
--- NOTE | 2022-04-02 13:13 | SUR.PHASEII ---
spoke with PRODUCTION LINE MECHANIC raegan about cough, since patient's cough is productive, cough suppressant medications are not appropriate. patient taking cough drops and has an appointment with her lung doc this wed. patient again instructed to monitor groin site and splint area when she is coughing
--- NOTE | 2022-04-02 14:29 | SUR.PHASEII ---
d/c education given to patient verbally and written instruction. patient verbalizes understanding. we spoke in depth about groin site precautions and care and to f/u with dr rahman's office. iv d/c tip intact. patient taken via wheel chair to personal vehicle with son driving
== END 2022-04-02 14:29 | disposition home or self-care (01) ==
PROVIDERS: PCP Physician Assistant; Visit Provider Specialist
PROC: 4A023N7 Measurement of Cardiac Sampling and Pressure, Left Heart, Percutaneous Approach (ICD-10-PCS; CPT 93452; principal; 2022-04-02 10:00)
DX: R07.9 Chest pain, unspecified (principal); R94.39 Abnormal result of other cardiovascular function study; I25.10 Atherosclerotic heart disease of native coronary artery without angina pectoris; K21.9 Gastro-esophageal reflux disease without esophagitis; J44.9 Chronic obstructive pulmonary disease, unspecified; Z87.891 Personal history of nicotine dependence
CPT/HCPCS: 36415; 80048; 85025; 93458; C1887; C1894; J1644; J2250; J3010; J7040

== ENCOUNTER 2022-04-05 09:08 | Outpatient (CLI) | payer MEDICARE, SELFPAY ==
[2022-04-05 09:30] VITALS: PULSE 72; O2SAT 97
[2022-04-05 09:35] VITALS: PULSE 86; O2SAT 96
[2022-04-05 09:45] VITALS: PULSE 76; O2SAT 97
--- NOTE | 2022-04-05 09:52 | HOMEO2EVAL ---
Evaluation was performed at [facility] Home Oxygen Evaluation RC: Home Oxygen (O2) Evaluation Start: 04/05/22 09:51 Freq: Status: Active Protocol: RPE Activity Type Activity Date Activity User E-sign Co-sign Detail Recorded Client Recorded Date Recorded By Document 04/05/22 09:30 DJO [email or web address] 04/05/22 09:52 DJO Document 04/05/22 09:35 DJO [id number] 04/05/22 09:52 DJO Document 04/05/22 09:45 [email or web address] [id number] 04/05/22 09:52 DJO 04/05/22 04/05/22 04/05/22 09:30 09:35 09:45 Home O2 Evaluation [Oxygen] -Test Phase Resting Exercise Resting -Oxygen Delivery Room Air Room Air Room Air [Pulse Oximetry] -Pulse Oximetry (90-100 %) 97 96 97 [Pulse Rate] -Pulse Rate (60-100 beats/min) 72 86 76 [Evaluation] -Activity Tolerance Good -Rating of Perceived Dyspnea (PD) +2 Mild, Some Difficulty, Noticeable to the Observer [Exercise] -Ambulation Distance (feet) 600 -Ambulation Distance (meters) 182.87 [Charges] -Treatment Charges O2 Evaluation - Outpatient
--- NOTE | 2022-04-16 13:18 | WPDPFTINT ---
PFT Procedure Performed PFT Procedure Performed Spirometry with Pre/Post Bronchodilator Plethysmography (Lung Vol) Diffusing Cap (DLCO) Flow Vol Loop PFT Interpretation DOS: 04/05/2022 REQUESTING: Tasha Donald PA-C REASON FOR TESTING: Shortness of breath PULMONARY FUNCTION TESTS Results are reliable and reproducible. Patient was recently discharged from the hospital a week ago. Just finished prednisone and had audible wheezing throughout the testing. Spirometry: Pre bronchodilator FEV1 is 1.24 L, 60%, moderately reduced. Pre bronchodilator FVC is 2.52 L, 94%, normal. FEV1/FVC ratio 49% severely reduced consistent with airflow obstruction. After bronchodilator the FEV1 increases by 12%, 1.38 L which is not 200 mL. The FVC increases by 10%, 2.78 L 260 [place]. Ats guideline says the increase needs to be 12% and 200 mL Lung volumes: Total lung capacity 5.5 L, 108% normal. Residual volume 2.84 L, 122% normal. RV/TLC is 52% normal. Airway resistance is 302% elevated. Diffusion: DLCO 8.6, 43% predicted. DLCO/VA is 2.23 L, 53%, lower than normal. Flow volume loop: There is coving of the expiratory limb consistent with airflow obstruction IMPRESSION: Moderate obstructive ventilatory impairment with moderate diffusion impairment which does not correct for alveolar volume. She had a clinical response to bronchodilator that does not meet the strict ATS criteria, however this does not preclude use. She was recovering from hospital discharge a week earlier. Compared to a prior study on 01/28/2020, FEV1 was 76%, 1.47 L, now 1.24 L, 60% significant ly lower. Her FVC was 2.53 L, 93%, unchanged. Lung volumes were similar. Diffusion was similar, DLCO was 50% now 43%. Patience Rodriguez MD
== END 2022-04-05 09:09 | disposition home or self-care (01) ==
PROVIDERS: PCP Physician Assistant; Visit Provider Physician Assistant
DX: J43.9 Emphysema, unspecified (principal); J96.11 Chronic respiratory failure with hypoxia
CPT/HCPCS: 94060; 94618; 94726; 94729

== ENCOUNTER 2022-04-29 10:54 | Inpatient (IN) | payer MEDICARE, SELFPAY ==
[2022-04-29] VITALS (27 sets, daily range): BP systolic 97–147; BP diastolic 57–84; PULSE 87–124; RESP 15–28; TEMP 36.2–37.7; O2SAT 94–100; BMI 22.5
--- NOTE | ~2022-04-29 | XR_ITS ---
XR chest 2V DATE: 04/29/2022 11:45 INDICATION: Shortness of breath. COPD. TECHNIQUE: AP and lateral views COMPARISON: 03/28/2022 PA and lateral views FINDINGS: Heart size appears borderline. Is aortic calcification and mild unfolding. No pulmonary consolidation, pleural effusion, pulmonary vascular congestion or pneumothorax. Diffuse osteopenia. There are some chronic compression fracture deformities of the thoracic spine, pr esent on 03/28/2022. IMPRESSION: No active pulmonary disease Reviewed, dictated and finalized at location A. O COORDINATOR IMPRESSION: No active pulmonary disease
--- NOTE | ~2022-04-29 | XR_ITS ---
EXAMINATION: XR chest 1V portable DATE: 05/08/2022 05:51 INDICATION: Pneumonia. Chronic obstructive pulmonary disease. TECHNIQUE: A single frontal view of the chest was obtained. COMPARISON: Chest single view 05/06/2022, chest CT 04/30/2022 FINDINGS: There are lucencies in the lungs, consistent with emphysema. There is mild scarring at the lung apices. There are mild airspace opacities in the lower lung zones. No pleural effusion or pneumo thorax. The heart size is normal. Breast implants are noted. IMPRESSION: 1. Stable airspace opacities in the lower lung zones, consistent with atelectasis versus pneumonia. 2. Severe emphysema. Reviewed, dictated and finalized at location A. ING MATCHER AND ASSEMBLER IMPRESSION: 1. Stable airspace opacities in the lower lung zones, consistent with atelectas is versus pneumonia. 2. Severe emphysema.
--- NOTE | ~2022-04-29 | XR_ITS ---
EXAMINATION: XR chest 1V portable Exam Date/Time: 05/14/2022 17:10 FRANKFURTER INSPECTOR HISTORY: temp Comparison: 05/11/22. RESULT: Lines, tubes, and devices: Bilateral breast augmentation. Lungs and pleura: Improved left basilar aeration. Persistent subsegmental opacities in the right lat eral midlung. Senescent and emphysematous changes. Cardiomediastinal silhouette: Stable. Other: No acute osseous or upper abdominal finding. IMPRESSION: Improved aeration in the left lung base. Persistent atelectasis/consolidation in the right peripheral midlung. Reviewed, dictated and finalized at location K. KFURTER INSPECTOR IMPRESSION: Improved aeration in the left lung base. Persistent atelectasis/consolidation i n the right peripheral midlung.
--- NOTE | ~2022-04-29 | XR_ITS ---
EXAMINATION: XR chest 2V DATE: 05/11/2022 10:20 INDICATION: Pneumonia. TECHNIQUE: Frontal and lateral views of the chest were obtained. COMPARISON: Chest single view 05/08/2022, chest CT 04/30/2022 FINDINGS: There is mild scarring at the lung apices. There are lucencies in the lungs, consistent wit h emphysema. There are mild peripheral airspace opacities in right mid and lower lung zones and left lower lung zone. No pleural effusion or pneumothorax. The heart size is normal. Breast implants are n oted. There are chronic compression fractures of T5 and T8. IMPRESSION: 1. Airspace opacities in right mid and lower lung zones and left lower lung zone, consistent with ate lectasis versus pneumonia. 2. Severe emphysema. Reviewed, dictated and finalized at location A. PRESSURE IMPRESSION: 1. Airspace opacities in right mid and lower lung zones and left lower lung zon e, consistent with atelectasis versus pneumonia. 2. Severe emphysema.
--- NOTE | ~2022-04-29 | CT_ITS ---
EXAMINATION: CTA chest PE protocol DATE: 04/30/2022 15:00 INDICATION: Dyspnea. Chest pain. TECHNIQUE: Computed tomography angiography (CTA) of the chest was performed with 100 mL Omnipaque-350 intravenous contrast timed to evaluate the pulmonary arteries. Coronal maximum intensity projection 3D-reconstructions were created by the technologist. Automated exposure control and iterative reconst ruction technique were employed. The dose-length product was 234.48 mGy-cm. COMPARISON: Chest CT 06/20/2021 FINDINGS: There is mild scarring at the lung apices. There is severe emphysema. There is mild atelect asis bilaterally. A calcified left lung nodule and calcified left hilar lymph nodes are consistent wi th old granulomatous disease. No pleural effusion. The heart size is normal. No pericardial effusion. There are coronary artery calcifications. There is stable mild right hilar lymphadenopathy, likely r eactive. Breast implants are noted. There is no pulmonary embolus. There is severe cervical spondylos is. There is chronic height loss of T5 and T8 vertebral bodies. There is mild thoracic spondylosis. IMPRESSION: 1. No pulmonary embolus. 2. Severe emphysema. Reviewed, dictated and finalized at location A. TING MACHINE OPERATOR
--- NOTE | ~2022-04-29 | XR_ITS ---
XR chest 1V portable DATE: 05/06/2022 20:40 INDICATION: Increasing shortness of breath TECHNIQUE: Portable upright AP chest on 05/06/2022 at 2036 hours COMPARISON: 04/30/2022 CTA chest FINDINGS: There is patchy left lower lobe infiltrate and minimal right basilar infiltrate or atelecta sis. Emphysematous changes of the lungs. No pleural effusion or pulmonary vascular congestion or pneumotho rax. Normal heart size. Aortic calcification and unfolding. Diffuse osteopenia. IMPRESSION: Patchy left lower lobe infiltrate which may be due to pneumonia Minimal infiltrate or atelectasis at the right lung base Reviewed, dictated and finalized at location A. APPRAISER
--- NOTE | 2022-04-29 11:15 | ECG_ITS ---
Measurements Intervals [place] Rate: 115 P: 63 RI: 151 QRS: -59 QRSD: 74 T: 71 QT: 314 QTc: 435 Interpretive Statements SINUS TACHYCARDIA LOW VOLTAGE- PRECORDIAL LEADS LEFT ANTERIOR FASCICULAR BLOCK BASELINE ARTIFACT- I, II, III, AVR, AVL, AVF, V1-V3 ABNORMAL ECG COMPARED TO ECG 03/28/2022 17:53:42 SINUS TACHYCARDIA NOW PRESENT LEFT ANTERIOR FASCICULAR BLOCK NOW PRESENT Electronically Signed On 04-29-2022 14:01:39 [employer] by Wilton Torrez D.O.
[2022-04-29 11:36] LABS: Basophils Absolute Auto 0.1 K/mm3 (0.0-0.1); Basophils Percent Auto 0.8 % (0.2-1.2); Eosinophils Absolute Auto 0.2 K/mm3 (0-0.3); Eosinophils Percent Auto 1.7 % (0-4.4); Hematocrit 40.4 % (37.0-47.0); Hemoglobin 12.8 g/dL (12.0-15.0); Immature Granulocyte Absolute 0.03 K/mm3 (0.00-0.031); Immature Granulocyte Percent A 0.3 % (0-0.5); Lymphocytes Absolute Auto 0.86 K/mm3 (0.9-3.2); Lymphocytes Percent Auto 9.5 % (18.3-44.2); Mean Corpuscular HGB Conc 31.7 g/dl (32-36); Mean Corpuscular Hemoglobin 29.7 pg (26-34); Mean Corpuscular Volume 93.7 fl (80-100); Mean Platelet Volume 10.9 fl (7.4-10.4); Monocytes Absolute Auto 0.7 K/mm3 (0.1-0.6); Monocytes Percent Auto 8.2 % (2.6-8.5); Neutrophils Absolute Auto 7.2 K/mm3 (1.3-6.7); Neutrophils Percent Auto 79.5 % (45.5-73.1); Platelet Count Result 299 k/mm3 (150-375); Red Blood Count 4.31 M/mm3 (4.2-5.4); Red Cell Distribution Width 14.6 % (11.5-14.5)
[2022-04-29 11:43] LABS: Alanine Aminotransferase 21 U/L (6-35); Albumin Level 4.4 g/dL (3.5-5.1); Alkaline Phosphatase 96 U/L (38-126); Anion Gap 13 mmol/L (8-16); Aspartate Amino Transferase 27 U/L (14-36); Bilirubin,Total 0.4 mg/dL (0.2-1.3); Blood Urea Nitrogen 13 mg/dL (7-17); Calcium 8.9 mg/dL (8.4-10.2); Carbon Dioxide 26 mmol/L (22-30); Chloride 102 mmol/L (98-107); Estimated CRCL calculation 45 ml/min; Estimated Glomerular Filt Rate > 60; Glucose 93 mg/dL (65-110); Sodium 141 mmol/L (137-145)
--- NOTE | 2022-04-29 12:10 | ED.SOB ---
HPI - SOB/Dyspnea General Chief Complaint: Shortness of Breath/Dyspnea Stated Complaint: COPD EXACERBATION Time Seen by Provider: 04/29/22 12:01 History of Present Illness HPI Narrative: Patient is a 77-year-old female with a history of COPD on 1 to 2 L nasal cannula baseline, GERD, hyperlipidemia presenting with shortness of breath. Patient states over the last 2 weeks she has had increasing difficulty with breathing. States that she has been using her inhalers with minimal relief. She also complains that she has tightness in her chest that feels like her COPD. Endorses a worsening nonproductive cough. States that she developed a headache earlier this morning. States that she has vaccinated for the flu and COVID. She denies numbness or weakness, fevers, abdominal pain, nausea or vomiting, diarrhea, dysuria, leg swelling. Related Data Home Medications Medication Instructions Recorded Confirmed diltiazem HCl 180 mg 180 mg PO DAILY 06/20/21 04/29/22 capsule,extended release 24 hr (Cardizem CD) Allergies Allergy/AdvReac Type Severity Reaction Status Date / Time No Known Allergies Allergy Verified 04/29/22 11:38 Review of Systems Review of Systems: All systems reviewed & are unremarkable except as noted in HPI and below PMFSH Past Medical History Medical History (Updated 05/08/22 @ 12:08 by Sierra Madsen MD) Abnormal nuclear stress test (03/2022) Cardiac catheterization on 04/02/2022 showed preserved left ventricular systolic function with minimal atherosclerosis of the proximal LAD and the proximal and mid RCA. Chronic respiratory failure with hypoxia, on home oxygen therapy COPD with emphysema Coronary artery calcification Calcifications noted on chest CT in October 2019. Echocardiogram showed normal left ventricular systolic function with an ejection fraction of 65 to 70% as well as grade 1 diastolic dysfunction. Gastroesophageal reflux disease History of tobacco abuse 45 pack year smoking history, quit in October 2019. Lumbar compression fracture Obstructive sleep apnea Resolved Osteopenia Supraventricular tachycardia Surgical History Surgical History (Updated 04/29/22 @ 21:19 by Essie Hall PA-C) History of bladder suspension procedure History of breast augmentation History of cardiac catheterization (03/2022) History of partial hysterectomy Family History Family History Mother Family history of heart disease in male family member before age 55 Cerebrovascular accident Heart attack Sibling Family history of heart disease in male family member before age 55 Heart attack Cerebrovascular accident Transitional cell carcinoma Father Cerebrovascular accident Social History Social History (Updated 04/29/22 @ 21:20 by Essie Hall PA-C) Social History: Surrogate decision maker: Nancy Keith, granddaughter. Code status: Full code. Smoking packs per day: 1 Smoking cigarettes per day: 20.0 Years smoked: 63 Smoking pack-years: 63.00 Smoking status: Former smoker Tobacco type: cigarettes Second hand tobacco smoke exposure: Yes Smoking end date: 06/24/19 Additional smoking assessment comments: Smoked .75 packs per day but up to 1.5 - 2 packs per day for over a year. Alcohol intake: never Substance use: never Substance use type: does not use Lack of Transportation: No Lack of Food: Never True Current Housing: I Have Housing Concerned About Future Housing: No Difficulty Paying Gas/Electric Bills: No Difficulty Paying for Meds: No Currently Unemployed: No Education: High School Diploma/GED Difficulty w/ Childcare or Family Care: No Additional living arrangements comments: Son Valentino lives 1 house away. Additional occupation/education comments: Worked 40 years [employer], , raised 8 children on her own. Spiritual care concerns: No Exam Narrative: GENERAL:
[2022-04-29] MEDS: methylPREDNISolone SOD SUCC 125 MG VIAL IV PUSH (12:27)
[2022-04-29] MEDS: SODIUM CHLORIDE 0.9% IV 1,000 ML 999 ML IV CONT ×2 (12:27→14:35)
[2022-04-29] MEDS: ALBUTEROL SULFATE NEB 2.5 MG/3 ML INH 10 MG INHALATION (12:32)
[2022-04-29] MEDS: IPRATROPIUM BR 0.02% INH SOLN 0.5 MG/2.5 ML VIAL INHALATION ×2 (12:32→22:36)
[2022-04-29 12:57] LABS: Troponin I < 0.012 ng/mL (0.000-0.034)
[2022-04-29 13:06] LABS: Influenza A QL RT-PCR Negative (Negative); Influenza B QL RT-PCR Negative (Negative); SARS-CoV-2 RNA PCR Negative
[2022-04-29 14:45] LABS: Troponin I < 0.012 ng/mL (0.000-0.034)
--- NOTE | 2022-04-29 16:02 | PC.NURSE ---
Diet tray ordered for patient.
[2022-04-29] MEDS: SODIUM CHLORIDE 0.9% IV 1,000 ML 125 ML IV CONT (17:24)
--- NOTE | 2022-04-29 17:45 | PM.IMHP ---
H&P: HPI History of Present Illness Date/Time: 04/29/22 17:45 Chief Complaint: Shortness of breath. Narrative: This is a 77-year-old female former smoker with COPD with emphysema and chronic respiratory failure on home oxygen who presented to the emergency department from for evaluation of shortness of breath. She is on 1 to 2 liters nasal cannula 24 hours a day and she admits that she does get a bit winded with day-to-day activities. Over the past 2 weeks she has had increasing dyspnea on lesser and lesser exertion and she has also developed a new cough which has not been productive. Her breathing was much worse yesterday and her nebulizers did not seem to provide her with much benefit. Her breathing has become much worse and she is now experiencing tightness in her chest. On arrival to the emergency department she was given a continuous nebulizer treatment and Solu-Medrol 125 milligrams IV push x1 and she is feeling quite a bit better with that though she is still tight and wheezing. Her chest discomfort has resolved. She is being admitted in this setting for further treatment. She denies fever, chills, sweats, sinus congestion, sore throat, sick contacts, exertional chest pain, pleuritic pain, palpitations, nausea, and vomiting. She had 3 loose stools yesterday but that has since resolved. No sick contacts. Review of Systems Review of Systems: 12 systems were reviewed and are negative except for as per HPI. [facility] Past Medical History Medical History (Updated 04/29/22 @ 21:23 by Essie Hall PA-C) Abnormal nuclear stress test (03/2022) Cardiac catheterization on 04/02/2022 showed preserved left ventricular systolic function with minimal atherosclerosis of the proximal LAD and the proximal and mid RCA. Chronic respiratory failure with hypoxia, on home oxygen therapy COPD with emphysema Coronary artery calcification Calcifications noted on chest CT in October 2019. Echocardiogram showed normal left ventricular systolic function with an ejection fraction of 65 to 70% as well as grade 1 diastolic dysfunction. Gastroesophageal reflux disease History of tobacco abuse 45 pack year smoking history, quit in October 2019. Lumbar compression fracture Obstructive sleep apnea Resolved Osteopenia Supraventricular tachycardia Surgical History Surgical History (Updated 04/29/22 @ 21:19 by Essie Hall PA-C) History of bladder suspension procedure History of breast augmentation History of cardiac catheterization (03/2022) History of partial hysterectomy Family History Family History Mother Family history of heart disease in male family member before age 55 Cerebrovascular accident Heart attack Sibling Family history of heart disease in male family member before age 55 Heart attack Cerebrovascular accident Transitional cell carcinoma Father Cerebrovascular accident Social History Social History (Updated 04/29/22 @ 21:20 by Essie Hall PA-C) Social History: Surrogate decision maker: Nancy Keith, granddaughter. Code status: Full code. Smoking packs per day: 1 Smoking cigarettes per day: 20.0 Years smoked: 63 Smoking pack-years: 63.00 Smoking status: Former smoker Tobacco type: cigarettes Second hand tobacco smoke exposure: Yes Smoking end date: 06/24/19 Additional smoking assessment comments: Smoked .75 packs per day but up to 1.5 - 2 packs per day for over a year. Alcohol intake: never Substance use: never Substance use type: does not use Has the Lack of Transportation Kept You From Medical Appointments or From Getting Medications?: No Within the Past 12 Months, Were You Worried Whether Your Food Would Run Out Before You Got Money to Buy More?: Never True What is Your Housing Situation Today?: I Have Housing Are You Worried That in the Next 2 Months, You May Not Have Your Own Housing to Live In?: No Do You Have Trou
--- NOTE | 2022-04-29 20:08 | ADMGEN ---
This patient, Mary Kate Keith, was admitted to 2 Medical Room 241-. Patient/family oriented to hospital policies and general routines including ID bracelet, bed and alarms, visiting hours, pain management, procedures, bathroom and other care routines, personal items, smoking policy, room service/diet, and visiting hours. Information on how to activate the Rapid Response Team has been discussed. Patient/Family are encouraged to report perceived risks to care and to ask questions if they do not understand what they are told or what they should do.
[2022-04-29] MEDS: ALBUTEROL SULFATE NEB 2.5 MG/3 ML INH 5 MG INHALATION (22:35)
[2022-04-29] MEDS: PANTOPRAZOLE 40 MG TABLET PO (23:20)
[2022-04-29] MEDS: methylPREDNISolone SOD SUCC 40 MG VIAL IV PUSH (23:21)
[2022-04-29] MEDS: ACETAMINOPHEN 325 MG TABLET 650 MG PO (23:31)
[2022-04-30] VITALS (14 sets, daily range): BP systolic 108–115; BP diastolic 56–68; PULSE 74–110; RESP 18–28; TEMP 36.3–37.2; O2SAT 94–97
[2022-04-30] MEDS: ALBUTEROL SULFATE NEB 2.5 MG/3 ML INH 5 MG INHALATION ×3 (01:52→13:47)
[2022-04-30] MEDS: IPRATROPIUM BR 0.02% INH SOLN 0.5 MG/2.5 ML VIAL INHALATION ×4 (01:52→19:59)
[2022-04-30] MEDS: methylPREDNISolone SOD SUCC 40 MG VIAL IV PUSH ×3 (05:18→20:49)
[2022-04-30] MEDS: SODIUM CHLORIDE 0.9% IV 1,000 ML 125 ML IV CONT (05:19)
[2022-04-30] MEDS: dilTIAZem HCL CD 180 MG CAP.ER.24H PO (08:03)
[2022-04-30] MEDS: CYANOCOBALAMIN 1,000 MCG TABLET 1000 MCG PO (08:03)
[2022-04-30] MEDS: ROSUVASTATIN 10 MG TABLET 20 MG PO (08:03)
[2022-04-30] MEDS: PANTOPRAZOLE 40 MG TABLET PO ×2 (08:04→16:18)
[2022-04-30] MEDS: BUDESONIDE RESPULE NEB 0.5 MG/2 ML AMP INHALATION ×2 (09:36→19:59)
--- NOTE | 2022-04-30 12:10 | PM.IMPN ---
Progress Note: A&P Assessment and Plan (1) COPD with acute exacerbation: Code(s): J44.1 - Chronic obstructive pulmonary disease with (acute) exacerbation Status: Acute Assessment and Plan: Likely precipitated by weather change. She originally reported non-productive cough, except now she reports green colored sputum and increasing dyspnea. Continue solu-medrol 40 mg IV Q6 hours. Scheduled duonebs Q6 hours and budesonide nebs BID. Add mucinex PO BID and empiric azithromycin for acute COPD exacerbation. (2) Chronic respiratory failure with hypoxia: Code(s): J96.11 - Chronic respiratory failure with hypoxia Status: Chronic Assessment and Plan: Home O2 requirement 1-2 liters nasal cannula 24 hours daily. Patient without increased O2 needs. Titrate as tolerated to keep sats>92% (3) Chest tightness: Code(s): R07.89 - Other chest pain Status: Acute Assessment and Plan: Patient c/o pleuritic chest pain. This is likely related to work of breathing and acute COPD exacerbation. Heart catheterization 04/02/22 showed minimal atherosclerosis of proximal LAD and not progression of disease over 2 years. Well's score 4.5 points moderate risk for PE. Will obtain CTA chest to rule out PE given tachycardia, tachypnea and pleuritic chest pain. (4) Hyperlipidemia: Qualifiers: Hyperlipidemia type: mixed hyperlipidemia Qualified Code(s): E78.2 - Mixed hyperlipidemia Code(s): E78.5 - Hyperlipidemia, unspecified Status: Chronic Assessment and Plan: chronic, stable. Continue crestor. (5) Gastroesophageal reflux disease: Qualifiers: Esophagitis presence: esophagitis presence not specified Qualified Code(s): K21.9 - Gastro-esophageal reflux disease without esophagitis Code(s): K21.9 - Gastro-esophageal reflux disease without esophagitis Status: Chronic Assessment and Plan: Chronic, stable. Continue protonix 40 mg BID (6) SVT (supraventricular tachycardia): Code(s): I47.1 - Supraventricular tachycardia Status: Chronic Assessment and Plan: chronic, stable. Continue diltiazem Plan CODE STATUS: FULL CODE Disposition: Home when respiratory status improves. Time Spent With Patient Time with patient: 15 - 25 minutes Subjective Date/time seen: 04/30/22 12:10 She still has pleuritic chest pain and shortness of breath at rest. She now has sputum that is green-colored. She reports compliance with her budesonide and duoneb treatments. Review of Systems Review of Systems: All systems reviewed & are unremarkable except as noted in HPI and below Exam Narrative: General: Mildly ill-appearing female sitting up in bed. O2 at 2L nasal cannula. HEENT: Normocephalic. PERRL, EOM intact. Sclera anicteric. Oral mucosa moist. Hearing grossly normal. Neck: Supple without lymphedema. No JVD. Respiratory: RR 24 bpm, speaking brief sentences. Lung sounds are diminished throughout end-expiratory wheezing and prolonged expiratory phase. Cardiovascular: Regular rate and rhythm with S1-S2. No tenderness to palpation over the chest wall Gastrointestinal: Abdomen is soft, nontender, and nondistended with positive bowel sounds. No guarding. Skin: Warm and dry. No rash or lesions on limited exam. Extremities: No cyanosis, clubbing, or edema. Radial and pedal pulses intact. Negative Branden sign bilaterally. Neurological: Alert and oriented x4. Cranial nerves 2-12 are grossly intact. No gross focal deficits. Psychiatric: Pleasant and cooperative with normal mood and affect. Objective Data Vital Signs Vital Signs: Vital Signs - 24 hr 04/29/22 12:32 04/29/22 12:32 04/29/22 13:20 Temperature Pulse Rate 105 H 107 H 120 H Respiratory Rate 18 23 H 26 H Blood Pressure 129/81 Pulse Oximetry 100 Oxygen Delivery Oxygen Flow Rate 04/29/22 12:45 04/29/22 13:00 04/29/22 13:32 Temper
[2022-04-30] MEDS: BENZOCAINE/MENTHOL (*BKC) 18 EA LOZENGE 1 LOZENGE PO ×3 (16:18→20:49)
[2022-04-30] MEDS: AZITHROMYCIN 250 MG TABLET 500 MG PO (17:36)
[2022-04-30] MEDS: guaiFENesin 12 HR 600 MG TABCR PO (20:49)
[2022-05-01] VITALS (16 sets, daily range): BP systolic 97–122; BP diastolic 52–76; PULSE 81–100; RESP 16–20; TEMP 36.2–36.9; O2SAT 93–98
[2022-05-01] MEDS: IPRATROPIUM BR 0.02% INH SOLN 0.5 MG/2.5 ML VIAL INHALATION ×4 (02:10→20:18)
[2022-05-01] MEDS: methylPREDNISolone SOD SUCC 40 MG VIAL IV PUSH ×2 (05:27→13:55)
[2022-05-01 05:42] LABS: Hematocrit 30.1 % (37.0-47.0); Hemoglobin 9.3 g/dL (12.0-15.0); Mean Corpuscular HGB Conc 30.9 g/dl (32-36); Mean Corpuscular Hemoglobin 28.8 pg (26-34); Mean Corpuscular Volume 93.2 fl (80-100); Mean Platelet Volume 11.4 fl (7.4-10.4); Platelet Count Result 252 k/mm3 (150-375); Red Blood Count 3.23 M/mm3 (4.2-5.4); Red Cell Distribution Width 15.4 % (11.5-14.5); White Blood Count 13.3 K/mm3 (4.5-10.0)
[2022-05-01 06:11] LABS: Alanine Aminotransferase 19 U/L (6-35); Albumin Level 3.3 g/dL (3.5-5.1); Alkaline Phosphatase 64 U/L (38-126); Anion Gap 10 mmol/L (8-16); Aspartate Amino Transferase 32 U/L (14-36); Bilirubin,Total 0.2 mg/dL (0.2-1.3); Blood Urea Nitrogen 13 mg/dL (7-17); Calcium 7.9 mg/dL (8.4-10.2); Carbon Dioxide 23 mmol/L (22-30); Chloride 109 mmol/L (98-107); Estimated CRCL calculation 45 ml/min; Estimated Glomerular Filt Rate > 60; Glucose 133 mg/dL (65-110); Potassium 3.8 mmol/L (3.4-5.0); Sodium 142 mmol/L (137-145)
[2022-05-01] MEDS: BENZOCAINE/MENTHOL (*BKC) 18 EA LOZENGE 1 LOZENGE PO ×3 (07:54→20:07)
[2022-05-01] MEDS: PANTOPRAZOLE 40 MG TABLET PO ×2 (07:55→16:33)
[2022-05-01] MEDS: ROSUVASTATIN 10 MG TABLET 20 MG PO (07:55)
[2022-05-01] MEDS: guaiFENesin 12 HR 600 MG TABCR PO ×2 (07:55→20:07)
[2022-05-01] MEDS: CYANOCOBALAMIN 1,000 MCG TABLET 1000 MCG PO (07:55)
[2022-05-01] MEDS: ENOXAPARIN 40 MG/0.4 ML SYRINGE SUB-Q (07:55)
[2022-05-01] MEDS: dilTIAZem HCL CD 180 MG CAP.ER.24H PO (07:55)
[2022-05-01] MEDS: AZITHROMYCIN 250 MG TABLET PO (07:56)
[2022-05-01] MEDS: BUDESONIDE RESPULE NEB 0.5 MG/2 ML AMP INHALATION ×2 (10:04→20:18)
--- NOTE | 2022-05-01 13:12 | PM.IMPN ---
Progress Note: A&P Assessment and Plan (1) COPD with acute exacerbation: Code(s): J44.1 - Chronic obstructive pulmonary disease with (acute) exacerbation Status: Acute Assessment and Plan: Likely precipitated by weather change. She originally reported non-productive cough, except now she reports green colored sputum and increasing dyspnea. Continue solu-medrol 40 mg IV Q12 hours. Scheduled duonebs Q6 hours and budesonide nebs BID. mucinex PO BID and empiric azithromycin for acute COPD exacerbation. (2) Chronic respiratory failure with hypoxia: Code(s): J96.11 - Chronic respiratory failure with hypoxia Status: Chronic Assessment and Plan: Home O2 requirement 1-2 liters nasal cannula 24 hours daily. Patient without increased O2 needs. Titrate as tolerated to keep sats>92% (3) Chest tightness: Code(s): R07.89 - Other chest pain Status: Acute Assessment and Plan: Patient c/o pleuritic chest pain. This is likely related to work of breathing and acute COPD exacerbation. Heart catheterization 04/02/22 showed minimal atherosclerosis of proximal LAD and not progression of disease over 2 years. Well's score 4.5 points moderate risk for PE. CTA chest negative for PE (4) Hyperlipidemia: Qualifiers: Hyperlipidemia type: mixed hyperlipidemia Qualified Code(s): E78.2 - Mixed hyperlipidemia Code(s): E78.5 - Hyperlipidemia, unspecified Status: Chronic Assessment and Plan: chronic, stable. Continue crestor. (5) Gastroesophageal reflux disease: Qualifiers: Esophagitis presence: esophagitis presence not specified Qualified Code(s): K21.9 - Gastro-esophageal reflux disease without esophagitis Code(s): K21.9 - Gastro-esophageal reflux disease without esophagitis Status: Chronic Assessment and Plan: Chronic, stable. Continue protonix 40 mg BID (6) SVT (supraventricular tachycardia): Code(s): I47.1 - Supraventricular tachycardia Status: Chronic Assessment and Plan: chronic, stable. Continue diltiazem Plan CODE STATUS: FULL CODE Disposition: Home when respiratory status improves. Time Spent With Patient Time with patient: 15 - 25 minutes Subjective Date/time seen: 05/01/22 13:12 She still has shortness of breath with exertion. She is feeling better with Xopenex instead of albuterol nebs. Her cough is minimally productive, but still green in color. Her appetite is fair. Review of Systems Review of Systems: All systems reviewed & are unremarkable except as noted in HPI and below Exam Narrative: General: No acute distress. tired- appearing female lying in bed. O2 at 2L nasal cannula. HEENT: Normocephalic. Pupils equal and round. Sclera anicteric. Oral mucosa moist. Hearing grossly normal. Neck: No JVD. Respiratory: RR 24 bpm, speaking brief sentences. Lung sounds are diminished throughout. prolonged expiratory phase. Cardiovascular: Regular rate and rhythm with S1-S2. No tenderness to palpation over the chest wall Gastrointestinal: Abdomen is soft, nontender, and nondistended with positive bowel sounds. No guarding. Skin: Warm and dry. No rash or lesions on limited exam. Extremities: No cyanosis, clubbing, or edema. Radial and pedal pulses intact. Negative Branden sign bilaterally. Neurological: Alert and oriented x4. No gross focal deficits. Psychiatric: Pleasant and cooperative with normal mood and affect. Objective Data Vital Signs Vital Signs: Vital Signs - 24 hr 04/30/22 13:50 04/30/22 14:00 04/30/22 19:53 Temperature 99.0 F 98 F Pulse Rate 102 H 110 H 105 H Respiratory Rate 28 H 20 22 H Blood Pressure 108/56 L 113/57 L Pulse Oximetry 97 95 Oxygen Delivery Oxygen Flow Rate 04/30/22 20:03 04/30/22 20:04 04/30/22 20:15 Temperature Pulse Rate 98 94 Respiratory Rate 18 18 Blood Pressure Pulse Oximetry 95 Oxygen Deliv
[2022-05-01 14:29] LABS: Hematocrit 31.1 % (37.0-47.0); Hemoglobin 9.9 g/dL (12.0-15.0)
[2022-05-02] VITALS (10 sets, daily range): BP systolic 114–137; BP diastolic 68–87; PULSE 79–100; RESP 18–24; TEMP 36.6–36.7; O2SAT 93–97
[2022-05-02] MEDS: IPRATROPIUM BR 0.02% INH SOLN 0.5 MG/2.5 ML VIAL INHALATION ×3 (02:02→20:17)
[2022-05-02 05:53] LABS: Hemoglobin 10.3 g/dL (12.0-15.0); Mean Corpuscular HGB Conc 31.2 g/dl (32-36); Mean Corpuscular Hemoglobin 29.3 pg (26-34); Mean Platelet Volume 11.5 fl (7.4-10.4); Platelet Count Result 272 k/mm3 (150-375); Red Blood Count 3.51 M/mm3 (4.2-5.4); Red Cell Distribution Width 15.7 % (11.5-14.5); White Blood Count 14.3 K/mm3 (4.5-10.0)
[2022-05-02 06:08] LABS: Alanine Aminotransferase 20 U/L (6-35); Albumin Level 3.5 g/dL (3.5-5.1); Alkaline Phosphatase 69 U/L (38-126); Anion Gap 6 mmol/L (8-16); Aspartate Amino Transferase 22 U/L (14-36); Bilirubin,Total 0.3 mg/dL (0.2-1.3); Blood Urea Nitrogen 18 mg/dL (7-17); Calcium 8.2 mg/dL (8.4-10.2); Carbon Dioxide 28 mmol/L (22-30); Chloride 106 mmol/L (98-107); Estimated CRCL calculation 45 ml/min; Estimated Glomerular Filt Rate > 60; Glucose 121 mg/dL (65-110); Sodium 140 mmol/L (137-145)
[2022-05-02] MEDS: BUDESONIDE RESPULE NEB 0.5 MG/2 ML AMP INHALATION ×2 (07:40→20:18)
[2022-05-02] MEDS: BENZOCAINE/MENTHOL (*BKC) 18 EA LOZENGE 1 LOZENGE PO ×2 (08:37→19:48)
[2022-05-02] MEDS: dilTIAZem HCL CD 180 MG CAP.ER.24H PO (08:38)
[2022-05-02] MEDS: guaiFENesin 12 HR 600 MG TABCR PO ×2 (08:38→19:48)
[2022-05-02] MEDS: CYANOCOBALAMIN 1,000 MCG TABLET 1000 MCG PO (08:38)
[2022-05-02] MEDS: methylPREDNISolone SOD SUCC 40 MG VIAL IV PUSH ×2 (08:38→17:56)
[2022-05-02] MEDS: AZITHROMYCIN 250 MG TABLET PO (08:38)
[2022-05-02] MEDS: PANTOPRAZOLE 40 MG TABLET PO ×2 (08:38→17:56)
[2022-05-02] MEDS: ROSUVASTATIN 10 MG TABLET 20 MG PO (08:38)
--- NOTE | 2022-05-02 14:37 | PC.NURSE ---
On 05/02/22, the student, [Ani Torres], provided care and completed [facility] documentation on this patient. I have reviewed the student's documentation and agree with the findings.
--- NOTE | 2022-05-02 15:47 | PM.IMPN ---
Progress Note: A&P Assessment and Plan (1) COPD with acute exacerbation: Code(s): J44.1 - Chronic obstructive pulmonary disease with (acute) exacerbation Status: Acute Assessment and Plan: Likely precipitated by weather change. She originally reported non-productive cough, except now she reports green colored sputum and increasing dyspnea. Continue solu-medrol 40 mg IV Q12 hours. Scheduled duonebs Q6 hours and budesonide nebs BID. Mucinex PO BID and empiric azithromycin (2) Chronic respiratory failure with hypoxia: Code(s): J96.11 - Chronic respiratory failure with hypoxia Status: Chronic Assessment and Plan: Home O2 requirement 1-2 liters nasal cannula 24 hours daily. Continue supplemental oxygen to maintain sats >90% (3) Chest tightness: Code(s): R07.89 - Other chest pain Status: Acute Assessment and Plan: Patient c/o pleuritic chest pain. This is likely related to work of breathing and acute COPD exacerbation. Heart catheterization 04/02/22 showed minimal atherosclerosis of proximal LAD and not progression of disease over 2 years. Well's score 4.5 points moderate risk for PE. CTA chest negative for PE (4) Hyperlipidemia: Qualifiers: Hyperlipidemia type: mixed hyperlipidemia Qualified Code(s): E78.2 - Mixed hyperlipidemia Code(s): E78.5 - Hyperlipidemia, unspecified Status: Chronic Assessment and Plan: Chronic, stable. Continue crestor. (5) Gastroesophageal reflux disease: Qualifiers: Esophagitis presence: esophagitis presence not specified Qualified Code(s): K21.9 - Gastro-esophageal reflux disease without esophagitis Code(s): K21.9 - Gastro-esophageal reflux disease without esophagitis Status: Chronic Assessment and Plan: Chronic, stable. Continue protonix 40 mg BID (6) SVT (supraventricular tachycardia): Code(s): I47.1 - Supraventricular tachycardia Status: Chronic Assessment and Plan: Chronic, stable. Continue diltiazem Subjective Date/time seen: 05/02/22 15:47 Interval history: Date of service: 05/02/2022 Mary Kate Keith is a 77-year-old female with a history of COPD, chronic respiratory failure on 1-2 L supplemental O2, GERD, S[place]RARIO, and SVT who is seen in follow-up for COPD exacerbation. Patient states she is feeling very poorly today. She feels that she has developed a cold. She complains of sinus congestion, rhinorrhea, and sneezing which started yesterday afternoon. She notes no improvement in her wheezing, and actually thinks that it might be little bit worse today. She has some chest pressure associated with this. She endorses nonproductive cough. Also complains dyspnea on exertion. She feels a bit ?wobbly? when she is up and walking. She endorses a good appetite. Denies any urinary symptoms. Last bowel movement was yesterday. Complains of dry lips. Review of Systems Review of Systems: All systems reviewed & are unremarkable except as noted in HPI and below Exam Narrative: General: thin, well-appearing 77-year-old female, sitting up in bed, comfortable Neuro: awake, alert and oriented x4, speech clear, no focal neuro deficits noted HEENMT: normocephalic, atraumatic, EOMI, sclerae anicteric Respiratory: diffuse wheezing, nonlabored breathing Cardio: regular rate, regular rhythm with S1-S2 Abdomen: nondistended, normoactive bowel sounds, soft, nontender to palpation Extremities: no edema, erythema, or tenderness to palpation, DP pulses 2+ bilaterally Skin: no rashes or lesions, warm and dry Psych: appropriate mood and affect, judgment and insight intact Objective Data Vital Signs Vital Signs: Vital Signs - 24 hr 05/01/22 19:44 05/01/22 20:18 05/01/22 20:23 Temperature 98.4 F Pulse Rate 89 87 87 Respiratory Rate 18 18 Blood Pressure 117/65 Pulse Oximetry 93 94 Oxygen Delivery Nasal Cannula O
--- NOTE | 2022-05-02 16:06 | PCRCNOTE ---
Window of time for administration has passed. See next scheduled administration.
[2022-05-02] MEDS: FLUTICASONE PROPIONATE 0.05% NA SPR 16 GM BTL (*BKC) 1 SPRAY NASAL (17:58)
[2022-05-03] VITALS (13 sets, daily range): BP systolic 102–124; BP diastolic 55–89; PULSE 74–93; RESP 18–22; TEMP 36.5–37.1; O2SAT 94–98
[2022-05-03] MEDS: IPRATROPIUM BR 0.02% INH SOLN 0.5 MG/2.5 ML VIAL INHALATION ×4 (01:21→18:16)
[2022-05-03 06:56] LABS: Alanine Aminotransferase 21 U/L (6-35); Albumin Level 3.5 g/dL (3.5-5.1); Alkaline Phosphatase 63 U/L (38-126); Anion Gap 10 mmol/L (8-16); Aspartate Amino Transferase 24 U/L (14-36); Bilirubin,Total 0.4 mg/dL (0.2-1.3); Blood Urea Nitrogen 19 mg/dL (7-17); Calcium 8.1 mg/dL (8.4-10.2); Carbon Dioxide 27 mmol/L (22-30); Chloride 101 mmol/L (98-107); Estimated CRCL calculation 40 ml/min; Estimated Glomerular Filt Rate > 60; Glucose 111 mg/dL (65-110); Potassium 3.9 mmol/L (3.4-5.0); Sodium 138 mmol/L (137-145)
[2022-05-03] MEDS: PANTOPRAZOLE 40 MG TABLET PO ×2 (09:25→16:59)
[2022-05-03] MEDS: dilTIAZem HCL CD 180 MG CAP.ER.24H PO (09:25)
[2022-05-03] MEDS: ROSUVASTATIN 10 MG TABLET 20 MG PO (09:25)
[2022-05-03] MEDS: guaiFENesin 12 HR 600 MG TABCR PO ×2 (09:25→19:59)
[2022-05-03] MEDS: methylPREDNISolone SOD SUCC 40 MG VIAL IV PUSH ×2 (09:26→16:59)
[2022-05-03] MEDS: CYANOCOBALAMIN 1,000 MCG TABLET 1000 MCG PO (09:26)
[2022-05-03] MEDS: FLUTICASONE PROPIONATE 0.05% NA SPR 16 GM BTL (*BKC) 1 SPRAY NASAL ×2 (09:26→20:19)
[2022-05-03] MEDS: LORATADINE 5 MG TABLET PO (09:26)
[2022-05-03] MEDS: AZITHROMYCIN 250 MG TABLET PO (09:26)
[2022-05-03] MEDS: BENZOCAINE/MENTHOL (*BKC) 18 EA LOZENGE 1 LOZENGE PO (09:31)
--- NOTE | 2022-05-03 14:21 | PC.NURSE ---
On 05/03/22, the student, [Jo Soler], provided care and completed [facility] documentation on this patient. I have reviewed the student's documentation and agree with the findings.
[2022-05-03] MEDS: BUDESONIDE RESPULE NEB 0.5 MG/2 ML AMP INHALATION ×2 (14:58→18:16)
--- NOTE | 2022-05-03 16:51 | PM.IMPN ---
Progress Note: A&P Assessment and Plan (1) COPD with acute exacerbation: Code(s): J44.1 - Chronic obstructive pulmonary disease with (acute) exacerbation Status: Acute Assessment and Plan: Likely precipitated by weather change. associated with productive cough and sinus congestion Continue solu-medrol 40 mg IV Q12 hours. Scheduled duonebs Q6 hours and budesonide nebs BID. Mucinex PO BID Continue empiric azithromycin given change in sputum production very slight improvement in wheezing noted on exam today (2) Chronic respiratory failure with hypoxia: Code(s): J96.11 - Chronic respiratory failure with hypoxia Status: Chronic Assessment and Plan: Home O2 requirement 1-2 liters nasal cannula 24 hours daily. Currently maintaining adequate O2 sats on 2 L supplemental O2 Continue supplemental oxygen to maintain sats >90% (3) Chest tightness: Code(s): R07.89 - Other chest pain Status: Acute Assessment and Plan: Improved. Patient c/o pleuritic chest pain. This is likely related to work of breathing and acute COPD exacerbation. Heart catheterization 04/02/22 showed minimal atherosclerosis of proximal LAD and not progression of disease over 2 years. Well's score 4.5 points moderate risk for PE. CTA chest negative for PE (4) Hyperlipidemia: Qualifiers: Hyperlipidemia type: mixed hyperlipidemia Qualified Code(s): E78.2 - Mixed hyperlipidemia Code(s): E78.5 - Hyperlipidemia, unspecified Status: Chronic Assessment and Plan: Chronic, stable. Continue crestor. (5) Gastroesophageal reflux disease: Qualifiers: Esophagitis presence: esophagitis presence not specified Qualified Code(s): K21.9 - Gastro-esophageal reflux disease without esophagitis Code(s): K21.9 - Gastro-esophageal reflux disease without esophagitis Status: Chronic Assessment and Plan: Chronic, stable. Continue protonix 40 mg BID (6) SVT (supraventricular tachycardia): Code(s): I47.1 - Supraventricular tachycardia Status: Chronic Assessment and Plan: no acute issues Continue diltiazem Subjective Date/time seen: 05/03/22 16:51 Interval history: Date of service: 05/03/2022 Mary Kate Keith is a 77-year-old female with a history of COPD, chronic respiratory failure on 1-2 L supplemental O2, GERD, SAGRARIO, and SVT who is seen in follow-up for COPD exacerbation. she is starting to feel somewhat improved today. She reports her cough is much more productive an easier to expectorates. She has greenish yellow mucus production. She has had really good improvement with the vibratory vest. She endorses sinus congestion today. Rhinorrhea has improved. She continues to state her breathing is horrible. States she is trying to breathe in through her nose and out through her mouth but is having hard time doing that. Continues to endorse wheezing. She also endorses dyspnea on exertion that is unchanged. States that she often is not able to walk down her hallway at home without shortness of breath and is not able to go to her mailbox. She states that this is a chronic problem for her but is worse than baseline. Chest pressure has improved. She denies fevers, chills, nausea, vomiting, dizziness, lightheadedness. Appetite is good. Review of Systems Review of Systems: All systems reviewed & are unremarkable except as noted in HPI and below Exam Narrative: General: thin, well-appearing 77-year-old female, sitting up in bed, comfortable Neuro: awake, alert and oriented x4, speech clear, no focal neuro deficits noted HEENMT: normocephalic, atraumatic, EOMI, sclerae anicteric Respiratory: diffuse wheezing in anterior and posterior lung schreiber with slight improvement, very slightly increased work of breathing, no tripoding or retractions, no accessory muscle use Cardio: regular rate, regular rhythm with
[2022-05-04] VITALS (11 sets, daily range): BP systolic 131–145; BP diastolic 73–87; PULSE 82–95; RESP 17–22; TEMP 36.6–37; O2SAT 92–95
[2022-05-04 05:54] LABS: Anion Gap 10 mmol/L (8-16); Blood Urea Nitrogen 19 mg/dL (7-17); Calcium 8.4 mg/dL (8.4-10.2); Carbon Dioxide 28 mmol/L (22-30); Chloride 100 mmol/L (98-107); Estimated CRCL calculation 45 ml/min; Estimated Glomerular Filt Rate > 60; Glucose 114 mg/dL (65-110); Potassium 3.6 mmol/L (3.4-5.0); Sodium 138 mmol/L (137-145)
--- NOTE | 2022-05-04 06:01 | PCRCNOTE ---
Window of time for administration has passed. See next scheduled administration.
[2022-05-04 06:20] LABS: Hematocrit 35.4 % (37.0-47.0); Hemoglobin 11.2 g/dL (12.0-15.0); Mean Corpuscular HGB Conc 31.6 g/dl (32-36); Mean Corpuscular Hemoglobin 29.3 pg (26-34); Mean Corpuscular Volume 92.7 fl (80-100); Mean Platelet Volume 11.6 fl (7.4-10.4); Platelet Count Result 268 k/mm3 (150-375); Red Blood Count 3.82 M/mm3 (4.2-5.4); Red Cell Distribution Width 14.9 % (11.5-14.5); White Blood Count 9.8 K/mm3 (4.5-10.0)
[2022-05-04] MEDS: IPRATROPIUM BR 0.02% INH SOLN 0.5 MG/2.5 ML VIAL INHALATION ×3 (09:23→20:28)
[2022-05-04] MEDS: BUDESONIDE RESPULE NEB 0.5 MG/2 ML AMP INHALATION ×2 (09:23→20:27)
[2022-05-04] MEDS: ROSUVASTATIN 10 MG TABLET 20 MG PO (09:36)
[2022-05-04] MEDS: LORATADINE 5 MG TABLET PO (09:36)
[2022-05-04] MEDS: dilTIAZem HCL CD 180 MG CAP.ER.24H PO (09:36)
[2022-05-04] MEDS: methylPREDNISolone SOD SUCC 40 MG VIAL IV PUSH ×3 (09:37→21:54)
[2022-05-04] MEDS: PANTOPRAZOLE 40 MG TABLET PO ×2 (09:37→16:09)
[2022-05-04] MEDS: AZITHROMYCIN 250 MG TABLET PO (09:37)
[2022-05-04] MEDS: CYANOCOBALAMIN 1,000 MCG TABLET 1000 MCG PO (09:37)
[2022-05-04] MEDS: FLUTICASONE PROPIONATE 0.05% NA SPR 16 GM BTL (*BKC) 1 SPRAY NASAL ×2 (09:37→20:01)
[2022-05-04] MEDS: guaiFENesin 12 HR 600 MG TABCR PO ×2 (09:37→20:01)
--- NOTE | 2022-05-04 10:27 | PCOTNOTE ---
Attempted to see patient this am, however patient declined. Pt reported already bathing at 4am this date. Pt presented with shortness of breath stating she's had a rough morning. They're going to increase the Prednisone.
--- NOTE | 2022-05-04 15:21 | PM.IMPN ---
Progress Note: A&P Assessment and Plan (1) COPD with acute exacerbation: Code(s): J44.1 - Chronic obstructive pulmonary disease with (acute) exacerbation Status: Acute Assessment and Plan: Likely precipitated by weather change. associated with productive cough and sinus congestion Continue solu-medrol increased to 40 mg IV Q8h given persistent wheezing Scheduled duonebs Q6 hours and budesonide nebs BID. Mucinex PO BID Completed 5 days of p.o. azithromycin (2) Chronic respiratory failure with hypoxia: Code(s): J96.11 - Chronic respiratory failure with hypoxia Status: Chronic Assessment and Plan: Home O2 requirement 1-2 liters nasal cannula 24 hours daily. Currently maintaining adequate O2 sats on 2 L supplemental O2 Continue supplemental oxygen to maintain sats >90% (3) Chest tightness: Code(s): R07.89 - Other chest pain Status: Acute Assessment and Plan: Improved. Patient c/o pleuritic chest pain. This is likely related to work of breathing and acute COPD exacerbation. Heart catheterization 04/02/22 showed minimal atherosclerosis of proximal LAD and not progression of disease over 2 years. Well's score 4.5 points moderate risk for PE. CTA chest negative for PE (4) Hyperlipidemia: Qualifiers: Hyperlipidemia type: mixed hyperlipidemia Qualified Code(s): E78.2 - Mixed hyperlipidemia Code(s): E78.5 - Hyperlipidemia, unspecified Status: Chronic Assessment and Plan: Chronic, stable. Continue crestor. (5) Gastroesophageal reflux disease: Qualifiers: Esophagitis presence: esophagitis presence not specified Qualified Code(s): K21.9 - Gastro-esophageal reflux disease without esophagitis Code(s): K21.9 - Gastro-esophageal reflux disease without esophagitis Status: Chronic Assessment and Plan: Chronic, stable. Continue protonix 40 mg BID (6) SVT (supraventricular tachycardia): Code(s): I47.1 - Supraventricular tachycardia Status: Chronic Assessment and Plan: no acute issues Continue diltiazem Subjective Date/time seen: 05/04/22 15:21 Interval history: Date of service: 05/04/2022 Mary Kate Keith is a 77-year-old female with a history of COPD, chronic respiratory failure on 1-2 L supplemental O2, GERD, SAGRARIO, and SVT who is seen in follow-up for COPD exacerbation. she feels poorly today. She stated her wheezing is worse today and she feels very short of breath. She continues to endorse dyspnea on exertion but she is still able to ambulate back and forth to the bathroom. She feels very weak. Continues to endorse chest pressure, though this seems to be improving. still with productive cough. Denies abdominal pain, nausea, vomiting, fever, chills Review of Systems Review of Systems: All systems reviewed & are unremarkable except as noted in HPI and below Exam Narrative: General: thin, well-appearing 77-year-old female, semi recumbent in bed, comfortable Neuro: awake, alert and oriented x4, speech clear, no focal neuro deficits noted HEENMT: normocephalic, atraumatic, EOMI, sclerae anicteric Respiratory: diffuse wheezing in anterior and posterior lung schreiber with slight improvement, very slightly increased work of breathing, no tripoding or retractions, no accessory muscle use Cardio: regular rate, regular rhythm with S1-S2 Abdomen: nondistended, normoactive bowel sounds, soft, nontender to palpation Extremities: no edema, erythema, or tenderness to palpation, DP pulses 2+ bilaterally Skin: no rashes or lesions, warm and dry Psych: appropriate mood and affect, judgment and insight intact Objective Data Vital Signs Vital Signs: Vital Signs - 24 hr 05/03/22 18:10 05/03/22 18:17 05/03/22 20:00 Temperature Pulse Rate 87 85 Respiratory Rate 20 18 Blood Pressure Pulse Oximetry 97 Oxygen Delivery Nasal Cannula Oxygen Flow R
[2022-05-05] VITALS (12 sets, daily range): BP systolic 116–153; BP diastolic 70–98; PULSE 82–98; RESP 16–24; TEMP 36.4–36.9; O2SAT 89–93
[2022-05-05] MEDS: IPRATROPIUM BR 0.02% INH SOLN 0.5 MG/2.5 ML VIAL INHALATION ×4 (01:26→20:02)
[2022-05-05] MEDS: methylPREDNISolone SOD SUCC 40 MG VIAL IV PUSH ×3 (05:00→21:10)
[2022-05-05 05:05] LABS: Hematocrit 37.6 % (37.0-47.0); Hemoglobin 11.9 g/dL (12.0-15.0); Mean Corpuscular HGB Conc 31.6 g/dl (32-36); Mean Corpuscular Hemoglobin 29.5 pg (26-34); Mean Corpuscular Volume 93.3 fl (80-100); Mean Platelet Volume 11.2 fl (7.4-10.4); Platelet Count Result 251 k/mm3 (150-375); Red Blood Count 4.03 M/mm3 (4.2-5.4); Red Cell Distribution Width 14.8 % (11.5-14.5); White Blood Count 18.8 K/mm3 (4.5-10.0)
[2022-05-05 05:19] LABS: Anion Gap 13 mmol/L (8-16); Blood Urea Nitrogen 18 mg/dL (7-17); Calcium 8.5 mg/dL (8.4-10.2); Carbon Dioxide 31 mmol/L (22-30); Chloride 97 mmol/L (98-107); Estimated CRCL calculation 51 ml/min; Estimated Glomerular Filt Rate > 60; Glucose 126 mg/dL (65-110); Potassium 3.5 mmol/L (3.4-5.0); Sodium 141 mmol/L (137-145)
[2022-05-05] MEDS: BUDESONIDE RESPULE NEB 0.5 MG/2 ML AMP INHALATION ×2 (08:04→20:02)
[2022-05-05] MEDS: LORATADINE 5 MG TABLET PO (08:48)
[2022-05-05] MEDS: PANTOPRAZOLE 40 MG TABLET PO ×2 (08:48→17:20)
[2022-05-05] MEDS: dilTIAZem HCL CD 180 MG CAP.ER.24H PO (08:48)
[2022-05-05] MEDS: CYANOCOBALAMIN 1,000 MCG TABLET 1000 MCG PO (08:49)
[2022-05-05] MEDS: guaiFENesin 12 HR 600 MG TABCR PO ×2 (08:49→21:10)
[2022-05-05] MEDS: ROSUVASTATIN 10 MG TABLET 20 MG PO (08:49)
[2022-05-05] MEDS: FLUTICASONE PROPIONATE 0.05% NA SPR 16 GM BTL (*BKC) 1 SPRAY NASAL ×2 (08:49→21:10)
--- NOTE | 2022-05-05 14:37 | PM.IMPN ---
Progress Note: A&P Assessment and Plan (1) COPD with acute exacerbation: Code(s): J44.1 - Chronic obstructive pulmonary disease with (acute) exacerbation Status: Acute Assessment and Plan: Likely precipitated by weather change and dust exposure vs URI. Associated with productive cough and sinus congestion Continue solu-medrol 40 mg IV Q8h given Will consider weaning to q12h tomorrow if continued improvement with eventual transition to PO prednisone Scheduled duonebs Q6 hours and budesonide nebs BID. Mucinex PO BID Completed 5 days of p.o. azithromycin (2) Chronic respiratory failure with hypoxia: Code(s): J96.11 - Chronic respiratory failure with hypoxia Status: Chronic Assessment and Plan: Home O2 requirement 1-2 liters nasal cannula 24 hours daily. Currently maintaining adequate O2 sats on 2 L supplemental O2, consistent with home setting Continue supplemental oxygen to maintain sats >90% (3) Chest tightness: Code(s): R07.89 - Other chest pain Status: Acute Assessment and Plan: Improved. Patient c/o pleuritic chest pain. This is likely related to work of breathing, cough, and acute COPD exacerbation. Heart catheterization 04/02/22 showed minimal atherosclerosis of proximal LAD and not progression of disease over 2 years. Well's score 4.5 points moderate risk for PE. CTA chest negative for PE (4) Hyperlipidemia: Qualifiers: Hyperlipidemia type: mixed hyperlipidemia Qualified Code(s): E78.2 - Mixed hyperlipidemia Code(s): E78.5 - Hyperlipidemia, unspecified Status: Chronic Assessment and Plan: Chronic, stable. Continue crestor. (5) Gastroesophageal reflux disease: Qualifiers: Esophagitis presence: esophagitis presence not specified Qualified Code(s): K21.9 - Gastro-esophageal reflux disease without esophagitis Code(s): K21.9 - Gastro-esophageal reflux disease without esophagitis Status: Chronic Assessment and Plan: Chronic, stable. Continue protonix 40 mg BID (6) SVT (supraventricular tachycardia): Code(s): I47.1 - Supraventricular tachycardia Status: Chronic Assessment and Plan: no acute issues Continue diltiazem Subjective Date/time seen: 05/05/22 14:37 Interval history: Date of service: 05/05/2022 Mary Kate Keith is a 77-year-old female with a history of COPD, chronic respiratory failure on 1-2 L supplemental O2, GERD, SAGRARIO, and SVT who is seen in follow-up for COPD exacerbation. she states she is getting better today. She is getting up more mucus today that she reports is green and thick. Her congestion has improved. Rhinorrhea has resolved. She notes no change in her wheezing. She is having symptomatic improvement with the vibratory vest. She does endorse pleuritic chest pain worse with coughing. She continues to endorse dyspnea on exertion. She is able to walk to and from the bathroom but becomes very short of breath on the return trip. She denies conversational dyspnea. No abdominal pain appetite is good. No urinary symptoms. Last bowel movement 2 days ago. She believes that her symptoms were triggered from dust because she got her [place] figurines out from storage and noted they had gathered dust making it hard to breathe. Review of Systems Review of Systems: All systems reviewed & are unremarkable except as noted in HPI and below Exam Narrative: General: thin, well-appearing 77-year-old female, semi recumbent in bed, comfortable Neuro: awake, alert and oriented x4, speech clear, no focal neuro deficits noted HEENMT: normocephalic, atraumatic, EOMI, sclerae anicteric Respiratory: diffuse wheezing in anterior and posterior lung schreiber with slight improvement, nonlabored breathing Cardio: regular rate, regular rhythm with S1-S2 Abdomen: nondistended, normoactive bowel sounds, soft, nontender to palpation Extremi
--- NOTE | 2022-05-05 15:19 | PCOTNOTE ---
Attempted to see patient, patient refused at this time. Patient reported participating in ADLs earlier today and declined any activity. Patient requested for GARCIA to try tomorrow to see for therapy. Will continue plan of care.
[2022-05-06] VITALS (12 sets, daily range): BP systolic 148–157; BP diastolic 78–97; PULSE 87–114; RESP 18–28; TEMP 36.7–37.2; O2SAT 89–93
[2022-05-06] MEDS: IPRATROPIUM BR 0.02% INH SOLN 0.5 MG/2.5 ML VIAL INHALATION ×4 (01:29→19:20)
[2022-05-06] MEDS: methylPREDNISolone SOD SUCC 40 MG VIAL IV PUSH ×3 (06:09→20:05)
[2022-05-06] MEDS: dilTIAZem HCL CD 180 MG CAP.ER.24H PO (08:31)
[2022-05-06] MEDS: PANTOPRAZOLE 40 MG TABLET PO ×2 (08:31→17:00)
[2022-05-06] MEDS: CYANOCOBALAMIN 1,000 MCG TABLET 1000 MCG PO (08:31)
[2022-05-06] MEDS: guaiFENesin 12 HR 600 MG TABCR PO ×2 (08:31→20:05)
[2022-05-06] MEDS: LORATADINE 5 MG TABLET PO (08:32)
[2022-05-06] MEDS: FLUTICASONE PROPIONATE 0.05% NA SPR 16 GM BTL (*BKC) 1 SPRAY NASAL (08:32)
[2022-05-06] MEDS: ROSUVASTATIN 10 MG TABLET 20 MG PO (08:32)
[2022-05-06] MEDS: BUDESONIDE RESPULE NEB 0.5 MG/2 ML AMP INHALATION ×2 (08:38→19:20)
--- NOTE | 2022-05-06 11:38 | PCOTNOTE ---
Attempted to see patient this date, stated I just feel horrible . Attempted to educate on benefits of OT patient continued to decline.
--- NOTE | 2022-05-06 15:50 | PM.IMPN ---
Progress Note: A&P Assessment and Plan (1) COPD with acute exacerbation: Code(s): J44.1 - Chronic obstructive pulmonary disease with (acute) exacerbation Status: Acute Assessment and Plan: Likely precipitated by weather change and dust exposure vs URI. Associated with productive cough and sinus congestion Continue solu-medrol 40 mg IV Q8h given persistent wheezing Scheduled duonebs Q6 hours and budesonide nebs BID. Mucinex PO BID Completed 5 days of p.o. azithromycin Given persistence of wheezing and overall lack of improvement, will request pulmonology evaluation for tomorrow morning. (2) Chronic respiratory failure with hypoxia: Code(s): J96.11 - Chronic respiratory failure with hypoxia Status: Chronic Assessment and Plan: Home O2 requirement 1-2 liters nasal cannula 24 hours daily. Currently maintaining adequate O2 sats on 2 L supplemental O2, consistent with home setting Continue supplemental oxygen to maintain sats >90% (3) Chest tightness: Code(s): R07.89 - Other chest pain Status: Acute Assessment and Plan: Improved. Patient c/o pleuritic chest pain. This is likely related to work of breathing, cough, and acute COPD exacerbation. Heart catheterization 04/02/22 showed minimal atherosclerosis of proximal LAD and not progression of disease over 2 years. Well's score 4.5 points moderate risk for PE. CTA chest negative for PE (4) Hyperlipidemia: Qualifiers: Hyperlipidemia type: mixed hyperlipidemia Qualified Code(s): E78.2 - Mixed hyperlipidemia Code(s): E78.5 - Hyperlipidemia, unspecified Status: Chronic Assessment and Plan: Chronic, stable. Continue crestor. (5) Gastroesophageal reflux disease: Qualifiers: Esophagitis presence: esophagitis presence not specified Qualified Code(s): K21.9 - Gastro-esophageal reflux disease without esophagitis Code(s): K21.9 - Gastro-esophageal reflux disease without esophagitis Status: Chronic Assessment and Plan: Chronic, stable. Continue protonix 40 mg BID (6) SVT (supraventricular tachycardia): Code(s): I47.1 - Supraventricular tachycardia Status: Chronic Assessment and Plan: no acute issues Continue diltiazem Subjective Date/time seen: 05/06/22 15:50 Interval history: Date of service: 05/06/2022 Mary Kate Keith is a 77-year-old female with a history of COPD, chronic respiratory failure on 1-2 L supplemental O2, GERD, SAGRARIO, and SVT who is seen in follow-up for COPD exacerbation. She feels poorly today. Does not feel any improvement. Continues to have cough but is not able to expectorates as much phlegm. She does have some improvement when she uses the vibratory vest. Her wheezing is not improved. She continues to endorse significant dyspnea on exertion. She does endorse improvement in sinus congestion. Denies fever, chills, chest pain, palpitations. No nausea or vomiting. Review of Systems Review of Systems: All systems reviewed & are unremarkable except as noted in HPI and below Exam Narrative: General: thin, well-appearing 77-year-old female, semi recumbent in bed, comfortable Neuro: awake, alert and oriented x4, speech clear, no focal neuro deficits noted HEENMT: normocephalic, atraumatic, EOMI, sclerae anicteric Respiratory: diffuse wheezing in anterior and posterior lung schreiber, able to speak in complete sentences, slightly increased work of breathing with no accessory muscle use or retractions Cardio: regular rate, regular rhythm with S1-S2 Abdomen: nondistended, normoactive bowel sounds, soft, nontender to palpation Extremities: no edema, erythema, or tenderness to palpation, DP pulses 2+ bilaterally Skin: no rashes or lesions, warm and dry Psych: appropriate mood and affect, judgment and insight intact Objective Data Vital Signs Vital Signs: Vital Signs - 24 hr 05/05/22
--- NOTE | 2022-05-06 19:25 | PC.NURSE ---
Pt CO SOB at rest. SPO2 was 91-92% on NC. Respiratory called and they recommended Lasix. Essie Hall called by this RN to update her on pt. Essie will be putting in new orders.
[2022-05-06 21:41] LABS: Anion Gap 9 mmol/L (8-16); Blood Urea Nitrogen 21 mg/dL (7-17); Calcium 8.3 mg/dL (8.4-10.2); Carbon Dioxide 28 mmol/L (22-30); Chloride 98 mmol/L (98-107); Estimated CRCL calculation 51 ml/min; Estimated Glomerular Filt Rate > 60; Glucose 192 mg/dL (65-110); Sodium 135 mmol/L (137-145)
[2022-05-06 21:49] LABS: NT Pro B Type Natriuretic Pept 838 pg/mL (5-100)
[2022-05-07] VITALS (13 sets, daily range): BP systolic 127–136; BP diastolic 73–83; PULSE 86–99; RESP 18–20; TEMP 36.4–36.8; O2SAT 90–94
[2022-05-07] MEDS: IPRATROPIUM BR 0.02% INH SOLN 0.5 MG/2.5 ML VIAL INHALATION ×3 (02:06→20:55)
[2022-05-07] MEDS: methylPREDNISolone SOD SUCC 40 MG VIAL IV PUSH ×3 (05:49→20:47)
[2022-05-07 06:27] LABS: Hematocrit 36.4 % (37.0-47.0); Hemoglobin 11.6 g/dL (12.0-15.0); Mean Corpuscular HGB Conc 31.9 g/dl (32-36); Mean Corpuscular Hemoglobin 28.8 pg (26-34); Mean Corpuscular Volume 90.3 fl (80-100); Mean Platelet Volume 11.5 fl (7.4-10.4); Platelet Count Result 226 k/mm3 (150-375); Red Blood Count 4.03 M/mm3 (4.2-5.4); Red Cell Distribution Width 14.6 % (11.5-14.5); White Blood Count 25.9 K/mm3 (4.5-10.0)
[2022-05-07 06:46] LABS: Anion Gap 6 mmol/L (8-16); Blood Urea Nitrogen 17 mg/dL (7-17); Calcium 8.3 mg/dL (8.4-10.2); Carbon Dioxide 33 mmol/L (22-30); Chloride 99 mmol/L (98-107); Estimated CRCL calculation 51 ml/min; Estimated Glomerular Filt Rate > 60; Glucose 136 mg/dL (65-110); Potassium 3.3 mmol/L (3.4-5.0); Sodium 138 mmol/L (137-145)
[2022-05-07] MEDS: BUDESONIDE RESPULE NEB 0.5 MG/2 ML AMP INHALATION ×2 (07:09→20:55)
[2022-05-07] MEDS: POTASSIUM CHLORIDE 20 MEQ TABLET PO (07:53)
[2022-05-07] MEDS: dilTIAZem HCL CD 180 MG CAP.ER.24H PO (08:05)
[2022-05-07] MEDS: LORATADINE 5 MG TABLET PO (08:05)
[2022-05-07] MEDS: BENZOCAINE/MENTHOL (*BKC) 18 EA LOZENGE 1 LOZENGE PO (08:05)
[2022-05-07] MEDS: guaiFENesin 12 HR 600 MG TABCR PO ×2 (08:06→20:48)
[2022-05-07] MEDS: CYANOCOBALAMIN 1,000 MCG TABLET 1000 MCG PO (08:06)
[2022-05-07] MEDS: ROSUVASTATIN 10 MG TABLET 20 MG PO (08:06)
[2022-05-07] MEDS: PANTOPRAZOLE 40 MG TABLET PO ×2 (08:06→16:37)
[2022-05-07] MEDS: FLUTICASONE PROPIONATE 0.05% NA SPR 16 GM BTL (*BKC) 1 SPRAY NASAL ×2 (08:06→20:48)
--- NOTE | 2022-05-07 10:25 | PCOTNOTE ---
Attempted to see patient 2x this AM. First attempt, patient eating breakfast. Second attempt, patient reports not feeling well, and became very agitated when therapist attempted to educate patient over importance of participating in therapy for improved wellness, in particular due to patient's lack of participation. patient reported her plan is to go home at d/c, however, patient reports not sure if she's able to go home in her current condition. CC notified to follow up. Patient also notified if she is unwilling to participate in OT, patient may be d/c from therapy. Patient raised her voiced, Well that's fine, discharge me then!! Therapist used calm, low voice to try and regain patient's composure and console her, and stated will try again later to see her. Patient not seen this AM for OT.
--- NOTE | 2022-05-07 16:34 | PM.CNPUL ---
Assessment and Plan Assessment and plan (1) COPD with acute exacerbation: Code(s): J44.1 - Chronic obstructive pulmonary disease with (acute) exacerbation Status: Acute Assessment and Plan: GOLD grade 2 group D COPD (60 PY, quit 2018 with [id number]% predicted on 04/14/2022) followed in the Pulmonary Clinic and last seen on 04/04/2022. on 04/04/2022 she reported shortness of breath with limited activity if she over exerts herself she had chest tightness and dizziness she was taking budesonide 0.5 mg b.i.d., ipratropium nebs p.r.n. q.i.d. and Xopenex p.r.n. t.i.d.. She had been treated with prednisone 50 mg x 5 days for COPD flare on 03/28/2022, her CAT score was 34. She was on 3 L oxygen all the time and the plan was to add Brovana, obtain PFTs and get a home O2 assessment. Patient now has 2 - 3 week worsening shortness of breath, cough, wheezing and presented to the emergency room on 04/29/2022. COVID RT PCR negative, influenza swab negative, BNP 838 without evidence of fluid overload and a CT angiogram was negative for PE but with severe apical predominant emphysema. The patient was treated for COPD exacerbation with IV steroids, bronchodilators and azithromycin and On 05/06 had a chest x-ray with a patchy infiltrate in the left lower lobe that was new compared to 04/29. Was started on ceftriaxone and azithomycin was restarted. She feels worse today than she did on presentation 04/29. I will treat the patient for a hospital-acquired infection in start vancomycin and imipenem. I will send sputum culture. I will look for additional infectious agents and repeat a COVID and influenza test and send RSV RT PCR study. I have also ordered a extended respiratory pathogen panel. I will check a blood gas to exclude hypercarbic respiratory failure. I will check an echocardiogram and a BNP to assess for fluid overload, LV function, RV function and pulmonary hypertension. I will change her Solu-Medrol to 20 mg IV q.6 hours, I will increase her ipratropium 2.5 mg q.4 hours, I will change her levalbuterol to albuterol and give her 2.5 mg q.4 hours. Discussed with Mercedes Triana. Will follow with you. History of Present Illness History of Present Illness Consult date: 05/07/22 Chief complaint: copd exacerbation Narrative: 05/07/2022: This is a new pulmonary consult for COPD exacerbation. 77-year-old with a history of GOLD grade 2 group D COPD (60 PY, quit 2018 with [id number]% predicted on 04/14/2022) followed in the Pulmonary Clinic and last seen on 04/04/2022. on 04/04/2022 she reported shortness of breath with limited activity if she over exerts herself she had chest tightness and dizziness she was taking budesonide 0.5 mg b.i.d., ipratropium nebs p.r.n. q.i.d. and Xopenex p.r.n. t.i.d.. She had been treated with prednisone 50 mg x 5 days for COPD flare on 03/28/2022, her CAT score was 34. She was on 3 L oxygen all the time and the plan was to add Brovana, obtain PFTs and get a home O2 assessment. The patient tells me today that she has been short of breath for about 3 weeks and she presented to the emergency room on 04/29/2022 with a white blood cell count of 8.9, eosinophils 1.7%, creatinine 0.8, a BNP of 838, troponin that was negative, COVID RT PCR negative, influenza swab negative, CT angiogram of the chest with no pulmonary embolism, severe apical predominant emphysema. Patient was admitted and treated for COPD exacerbation with bronchodilators, Solu-Medrol and azithromycin. Pain issue and finished her azithromycin after 5 days on 05/04/2022. Her Solu-Medrol was initially wean from 40 Q 6-40 Q 8 and then to 40 b.i.d. on 05/04 but the patient worsened and her Solu-Medrol was increased back to 40 q.8 on 05/04. Patient had a chest x-ray on 05/06 demonstrated a patchy infiltrate in the left lower lobe and ceftriaxone and azithromycin were restarted. 05/07/2022: Today the patient tells me that she is worse than
--- NOTE | 2022-05-07 16:37 | PM.IMPN ---
Progress Note: A&P Assessment and Plan (1) COPD with acute exacerbation: Code(s): J44.1 - Chronic obstructive pulmonary disease with (acute) exacerbation Status: Acute Assessment and Plan: Likely precipitated by weather change and dust exposure vs URI. Associated with productive cough and sinus congestion Appreciate pulmonology consultation given lack of improvement following IV steroids IV Solu-Medrol 20 mg q.6 hours prior pulmonology recommendation albuterol ipratropium nebs q.6 hours and budesonide nebs b.i.d. Mucinex PO BID Check ABG echo and BNP pending for further evaluation (2) Pneumonia: Code(s): J18.9 - Pneumonia, unspecified organism Status: Acute Assessment and Plan: repeat CXR on 05/06 showed patchy left lower lobe infiltrate, concerning for pneumonia begin vancomycin and Primaxin for coverage of hospital-acquired pneumonia RSV and extended respiratory pathogen panel pending per pulmonology recommendations supportive care (3) Chronic respiratory failure with hypoxia: Code(s): J96.11 - Chronic respiratory failure with hypoxia Status: Chronic Assessment and Plan: Home O2 requirement 1-2 liters nasal cannula 24 hours daily. Currently maintaining adequate O2 sats on 2 L supplemental O2, consistent with home setting Continue supplemental oxygen to maintain sats >90% (4) Chest tightness: Code(s): R07.89 - Other chest pain Status: Acute Assessment and Plan: Improved. Patient c/o pleuritic chest pain. This is likely related to work of breathing, cough, and acute COPD exacerbation. Heart catheterization 04/02/22 showed minimal atherosclerosis of proximal LAD and not progression of disease over 2 years. Well's score 4.5 points moderate risk for PE. CTA chest negative for PE (5) Hyperlipidemia: Qualifiers: Hyperlipidemia type: mixed hyperlipidemia Qualified Code(s): E78.2 - Mixed hyperlipidemia Code(s): E78.5 - Hyperlipidemia, unspecified Status: Chronic Assessment and Plan: Chronic, stable. Continue crestor. (6) Gastroesophageal reflux disease: Qualifiers: Esophagitis presence: esophagitis presence not specified Qualified Code(s): K21.9 - Gastro-esophageal reflux disease without esophagitis Code(s): K21.9 - Gastro-esophageal reflux disease without esophagitis Status: Chronic Assessment and Plan: Chronic, stable. Continue protonix 40 mg BID (7) SVT (supraventricular tachycardia): Code(s): I47.1 - Supraventricular tachycardia Status: Chronic Assessment and Plan: no acute issues Continue diltiazem Subjective Date/time seen: 05/07/22 16:37 Interval history: Date of service: 05/07/2022 Mary Kate Keith is a 77-year-old female with a history of COPD, chronic respiratory failure on 1-2 L supplemental O2, GERD, SAGRARIO, and SVT who is seen in follow-up for COPD exacerbation. she continues to feel poorly today. Her cough is persistent. she endorses worsened shortness of breath. She is having a harder time with ambulation and worsened dyspnea on exertion. Also endorses conversational dyspnea. She does actually believe that her wheezing is slightly improved today. Endorses lightheadedness with activity. Denies chest pain. No nausea, vomiting, fever, or chills. States her last bowel movement was 3 days ago. Denies urinary symptoms. Review of Systems Review of Systems: All systems reviewed & are unremarkable except as noted in HPI and below Exam Narrative: General: thin, well-appearing 77-year-old female, semi recumbent in bed, comfortable Neuro: awake, alert and oriented x4, speech clear, no focal neuro deficits noted HEENMT: normocephalic, atraumatic, EOMI, sclerae anicteric Respiratory: diffuse wheezing in anterior and posterior lung schreiber, labored breathing with conversational dyspnea noted, sti
[2022-05-07 16:49] LABS: Alveolar/Arterial O2 Gradient 93.5 mmHg; Base Excess ABG 6.7 mEq/l (+/-2.0); Fractional Inspired Oxygen 28 %; HCO3 ABG 29.7 mEq/l (22.0-26.0); Oxygen Content ABG 17.3 %vol (16.0-22.0); Oxygen Saturation ABG 94.3 % (95.0-100.0); Oxyhemoglobin 93.3 % THb (90.0-100.0); PCO2 ABG 36.6 mmHg (35.0-45.0); PO2 FiO2 Ratio Arterial Blood 2.25 %; Total Hemoglobin 13.2 g/dL (12.0-18.0)
[2022-05-07 16:51] LABS: Device NASAL CANNULA; Modified Allen's Test Pass; Site Drawn RIGHT RADIAL; pH ABG 7.527 (7.350-7.450)
[2022-05-07] MEDS: polyethylene glycoL 3350 17 GM POWD.PACK PO (17:10)
[2022-05-07 18:21] LABS: Influenza A QL RT-PCR Positive (Negative); Influenza B QL RT-PCR Negative (Negative); RSV RNA, RT-PCR Negative (Negative); SARS-CoV-2 RNA PCR Negative
[2022-05-07 20:17] LABS: IFOB Positive Control Positive; Immunochemical Fecal Occult Bl Positive (N)
[2022-05-07] MEDS: DOCUSATE SODIUM 100 MG CAPSULE PO (20:48)
[2022-05-08] VITALS (13 sets, daily range): BP systolic 121–139; BP diastolic 68–75; PULSE 80–93; RESP 18–24; TEMP 36.2–36.9; O2SAT 91–94
[2022-05-08] MEDS: IPRATROPIUM BR 0.02% INH SOLN 0.5 MG/2.5 ML VIAL INHALATION ×5 (02:39→20:45)
[2022-05-08] MEDS: methylPREDNISolone SOD SUCC 40 MG VIAL IV PUSH (05:09)
[2022-05-08 06:01] LABS: Anion Gap 11 mmol/L (8-16); Blood Urea Nitrogen 23 mg/dL (7-17); Carbon Dioxide 30 mmol/L (22-30); Chloride 98 mmol/L (98-107); Estimated CRCL calculation 51 ml/min; Estimated Glomerular Filt Rate > 60; Glucose 142 mg/dL (65-110); Potassium 3.1 mmol/L (3.4-5.0); Sodium 139 mmol/L (137-145)
[2022-05-08 06:06] LABS: NT Pro B Type Natriuretic Pept 470 pg/mL (5-100)
[2022-05-08 06:24] LABS: Hematocrit 32.7 % (37.0-47.0); Hemoglobin 10.5 g/dL (12.0-15.0); Mean Corpuscular HGB Conc 32.1 g/dl (32-36); Mean Corpuscular Hemoglobin 28.9 pg (26-34); Mean Corpuscular Volume 90.1 fl (80-100); Mean Platelet Volume 11.7 fl (7.4-10.4); Platelet Count Result 226 k/mm3 (150-375); Red Blood Count 3.63 M/mm3 (4.2-5.4); Red Cell Distribution Width 14.6 % (11.5-14.5); White Blood Count 17.6 K/mm3 (4.5-10.0)
--- NOTE | 2022-05-08 07:55 | PCOTNOTE ---
D/C pt. from occupational therapy services. Pt. declined services repeatedly, following initial evaluation. Pt. aware of benefits of therapy services, but expresses disinterest. Spoke with Nursing and Hospitalist, Mercedes Triana, who agreed to decision to D/C from Occupational Therapy. Re-order is needed.
[2022-05-08] MEDS: ALBUTEROL SULFATE NEB 2.5 MG/3 ML INH INHALATION ×3 (09:00→20:45)
[2022-05-08] MEDS: OSELTAMIVIR PHOSPHATE 75 MG CAPSULE PO ×2 (09:45→22:30)
[2022-05-08] MEDS: LORATADINE 5 MG TABLET PO (09:46)
[2022-05-08] MEDS: polyethylene glycoL 3350 17 GM POWD.PACK PO (09:46)
[2022-05-08] MEDS: DOCUSATE SODIUM 100 MG CAPSULE PO ×2 (09:46→22:31)
[2022-05-08] MEDS: guaiFENesin 12 HR 600 MG TABCR PO ×2 (09:46→22:31)
[2022-05-08] MEDS: POTASSIUM CHLORIDE 20 MEQ TABLET 40 MEQ PO (09:46)
[2022-05-08] MEDS: ROSUVASTATIN 10 MG TABLET 20 MG PO (09:46)
[2022-05-08] MEDS: dilTIAZem HCL CD 180 MG CAP.ER.24H PO (09:46)
[2022-05-08] MEDS: PANTOPRAZOLE 40 MG TABLET PO ×2 (09:47→17:14)
[2022-05-08] MEDS: CYANOCOBALAMIN 1,000 MCG TABLET 1000 MCG PO (09:47)
--- NOTE | 2022-05-08 11:38 | PM.PNPUL ---
Progress Note: A&P Assessment and Plan (1) COPD with acute exacerbation: Code(s): J44.1 - Chronic obstructive pulmonary disease with (acute) exacerbation Status: Acute Assessment and Plan: GOLD grade 2 group D COPD (60 PY, quit 2018 with [id number]% predicted on 04/14/2022) followed in the Pulmonary Clinic and last seen on 04/04/2022. on 04/04/2022 she reported shortness of breath with limited activity if she over exerts herself she had chest tightness and dizziness she was taking budesonide 0.5 mg b.i.d., ipratropium nebs p.r.n. q.i.d. and Xopenex p.r.n. t.i.d.. She had been treated with prednisone 50 mg x 5 days for COPD flare on 03/28/2022, her CAT score was 34. She was on 3 L oxygen all the time and the plan was to add Brovana, obtain PFTs and get a home O2 assessment. Patient now has 2 - 3 week worsening shortness of breath, cough, wheezing and presented to the emergency room on 04/29/2022. COVID RT PCR negative, influenza swab negative, BNP 838 without evidence of fluid overload and a CT angiogram was negative for PE but with severe apical predominant emphysema. The patient was treated for COPD exacerbation with IV steroids, bronchodilators and azithromycin and On 05/06 had a chest x-ray with a patchy infiltrate in the left lower lobe that was new compared to 04/29. Was started on ceftriaxone and azithomycin was restarted. She feels worse today than she did on presentation 04/29. I will treat the patient for a hospital-acquired infection in start vancomycin and imipenem. I will send sputum culture. I will look for additional infectious agents and repeat a COVID and influenza test and send RSV RT PCR study. I have also ordered a extended respiratory pathogen panel. I will check a blood gas to exclude hypercarbic respiratory failure. I will check an echocardiogram and a BNP to assess for fluid overload, LV function, RV function and pulmonary hypertension. I will change her Solu-Medrol to 20 mg IV q.6 hours, I will increase her ipratropium 2.5 mg q.4 hours, I will change her levalbuterol to albuterol and give her 2.5 mg q.4 hours. 11/15 today the patient tells me she feels worse than yesterday. She continues with cough, phlegm and wheezing. Saturations on 2 L nasal cannula are 96%. White blood cell count is 17.6, creatinine is 0.7. She has bilateral expiratory wheezes on exam. She is now positive for influenza a and I suspect this is the reason why she has not responded to standard COPD exacerbation treatment. At this time I have discontinued systemic and inhaled steroids and will continue on at albuterol 2.5 mg nebs q.4 hours and ipratropium 0.5 mg nebs q.4 hours. Discussed with Mercedes Triana. Will follow with you. (2) Influenza A: Code(s): J10.1 - Influenza due to other identified influenza virus with other respiratory manifestations Status: Acute Assessment and Plan: 05/08 Repeat influenza RT PCR study was positive for influenza A. Oseltamivir 75 mg p.o. q.12 hours was started. Systemic and inhaled steroids were discontinued. Repeat COVID and RT PCR for RSV are negative. Chest x-ray today shows stable bibasilar interstitial infiltrates. At this point I would continue vancomycin and imipenem which were started on 05/07/2022. Subjective Date/time seen: 05/08/22 11:38 Interval history: 05/07/2022:? This is a new pulmonary consult for COPD exacerbation.? 77-year-old with a history of GOLD grade 2 group D COPD (60 PY, quit 2018 with [id number]% predicted on 04/14/2022) followed in the Pulmonary Clinic? and last seen on 04/04/2022. ? on 04/04/2022 she reported shortness of breath with limited activity if she over exerts herself she had chest tightness and dizziness she was taking budesonide 0.5 mg b.i.d., ipratropium nebs p.r.n. q.i.d. and Xopenex p.r.n. t.i.d..? She had been treated with prednisone 50 mg x 5 days for COPD flare on 03/28/2022, her CAT score was 34.? She was on
--- NOTE | 2022-05-08 12:12 | PCNWS ---
Weekly nutritional screen. Patient is tolerating current diet with adequate intake. No weight loss reported. No nutritional needs at this time.
--- NOTE | 2022-05-08 14:28 | PCRCNOTE ---
Window of time for administration has passed. See next scheduled administration.
--- NOTE | 2022-05-08 16:29 | ECHO_ITS ---
Patient Info Name: Mary Kate Keith Age: 77 years : 1945 Gender: Female Ht: 64 in Wt: 131 lbs BSA: 1.64 m2 HR: 102 bpm BP: 121 / 75 mmHg Heart Rhythm: Sinus Rhythm, Tachycardia Technical Quality: Fair Exam Date: 05/08/2022 10:47 AM Exam Location: [facility] Pulmonary Patient Status: Inpatient Admit Date: 05/01/2022 Staff Ordering Physician: Cristian Maria MD Spray Drier Operator: Marcy Blackwell RDCS Attending Provider: Mercedes Triana PA-C Referring Physician: Crow GUZMÁN; Exam Type: CA echo doppler color flow Study Info Indications - LV AND RV FX AND PA PRESSURE Complete two-dimensional, color flow and Doppler transthoracic echocardiogram is performed. Summary 1. Complete two-dimensional, color flow and Doppler transthoracic echocardiogram is performed. 2. Left ventricular systolic function is normal, estimated at 65-70%. 3. The left ventricular diastolic function is grade I diastolic dysfunction. 4. Right ventricular systolic function is normal. 5. There is trace mitral valve regurgitation. 6. There is trace tricuspid valve regurgitation. Left Ventricle Left ventricular chamber dimension is normal. Left ventricular systolic function is normal, estimated at 65-70%. There is no increased left ventricular wall thickness. The left ventricular diastolic function is grade I diastolic dysfunction. Right Ventricle Right ventricular chamber dimension is normal. Right ventricular systolic function is normal. Left Atria Left atrial chamber dimension is normal. Right Atria Right atrial chamber dimension is normal. Atrial Septum Intact interatrial septum visualized by color flow imaging. Aortic Valve The aortic valve is not well visualized. There is moderate aortic valve sclerosis. There is no aortic valve stenosis. There is no aortic valve regurgitation. Pulmonic Valve The pulmonic valve is not well visualized. Mitral Valve The mitral valve has normal leaflets. There is no mitral valve stenosis. There is trace mitral valve regurgitation. Tricuspid Valve The tricuspid valve leaflets are not well visualized. There is trace tricuspid valve regurgitation. Pericardium/Pleural There is no pericardial effusion. Inferior Vena Cava Normal inferior vena cava with >50% collapse upon inspiration consistent with normal right atrial pressure, 3 mmHg. Aorta The aortic root size at the sinus of Valsalva is normal. Left Ventricular Outflow Tract Name Value Normal LVOT 2D LVOT Diameter 2.2 cm LVOT Doppler LVOT Peak Gradient 6 mmHg LVOT Mean Gradient 3 mmHg LVOT VTI 22 cm LVOT VTI/AV VTI Ratio 0.9 LVOT Stroke Volume 81 ml LVOT CO 8.2 l/min LVOT CI 5.0 l/min/m2 Pulmonic Valve Name Value Normal
--- NOTE | 2022-05-08 16:33 | P.PNIM_ITS ---
Progress Note: A&P Assessment and Plan (1) COPD with acute exacerbation: Code(s): J44.1 - Chronic obstructive pulmonary disease with (acute) exacerbation Status: Acute Assessment and Plan: patient presented with 1 week of worsening cough, shortness of breath, wheezing with lack of improvement to standard treatment including course of IV steroids and azithromycin * Appreciate pulmonology consultation * IV and inhaled steroids have been discontinued as patient has tested positive for influenza A * continue with albuterol and ipratropium nebs q.4 hours * ABG completed without evidence of hypercapnia * echocardiogram completed without evidence of decompensated heart failure. EF is within normal limits and patient has grade 1 diastolic dysfunction (2) Influenza A: Code(s): J10.1 - Influenza due to other identified influenza virus with other respiratory manifestations Status: Acute Assessment and Plan: negative influenza A on admission on 04/29. Recheck on 05/07 is positive. onset of illness is unable to be determined * begin Tamiflu 75 mg q.12 for 5 days * supportive care * appreciate pulmonology recommendations (3) Pneumonia: Code(s): J18.9 - Pneumonia, unspecified organism Status: Acute Assessment and Plan: repeat CXR on 05/06 showed patchy left lower lobe infiltrate, concerning for pneumonia * continue vancomycin and Primaxin for coverage of hospital-acquired pneumonia * RSV negative * extended respiratory pathogen panel pending per pulmonology recommendations * supportive care (4) Chronic respiratory failure with hypoxia: Code(s): J96.11 - Chronic respiratory failure with hypoxia Status: Chronic Assessment and Plan: Home O2 requirement 1-2 liters nasal cannula 24 hours daily. * Currently maintaining adequate O2 sats on 2 L supplemental O2, consistent with home setting * Continue supplemental oxygen to maintain sats >90% (5) Chest tightness: Code(s): R07.89 - Other chest pain Status: Acute Assessment and Plan: Improved. Patient c/o pleuritic chest pain. This is likely related to work of breathing, cough, and acute COPD exacerbation. * Heart catheterization 04/02/22 showed minimal atherosclerosis of proximal LAD and not progression of disease over 2 years. * Well's score 4.5 points moderate risk for PE. CTA chest negative for PE (6) Hyperlipidemia: Qualifiers: Hyperlipidemia type: mixed hyperlipidemia Qualified Code(s): E78.2 - Mixed hyperlipidemia Code(s): E78.5 - Hyperlipidemia, unspecified Status: Chronic Assessment and Plan: Chronic, stable. * Continue crestor. (7) Gastroesophageal reflux disease: Qualifiers: Esophagitis presence: esophagitis presence not specified Qualified Code(s): K21.9 - Gastro-esophageal reflux disease without esophagitis Code(s): K21.9 - Gastro-esophageal reflux disease without esophagitis Status: Chronic Assessment and Plan: Chronic, stable. * Continue protonix 40 mg BID (8) SVT (supraventricular tachycardia): Code(s): I47.1 - Supraventricular tachycardia Status: Chronic Assessment and Plan: no acute issues * Continue diltiazem Subjective Date/time seen: 05/08/22 16:33 Interval history: Date of service: 05/08/2022 Mary Kate Keith is a 77-year-old female with a history of COPD, chronic respiratory failure on 1-2 L supplemental O2, GERD, S[place]RARIO,
--- NOTE | 2022-05-08 16:33 | PM.IMPN ---
Progress Note: A&P Assessment and Plan (1) COPD with acute exacerbation: Code(s): J44.1 - Chronic obstructive pulmonary disease with (acute) exacerbation Status: Acute Assessment and Plan: patient presented with 1 week of worsening cough, shortness of breath, wheezing with lack of improvement to standard treatment including course of IV steroids and azithromycin Appreciate pulmonology consultation IV and inhaled steroids have been discontinued as patient has tested positive for influenza A continue with albuterol and ipratropium nebs q.4 hours ABG completed without evidence of hypercapnia echocardiogram completed without evidence of decompensated heart failure. EF is within normal limits and patient has grade 1 diastolic dysfunction (2) Influenza A: Code(s): J10.1 - Influenza due to other identified influenza virus with other respiratory manifestations Status: Acute Assessment and Plan: negative influenza A on admission on 04/29. Recheck on 05/07 is positive. onset of illness is unable to be determined begin Tamiflu 75 mg q.12 for 5 days supportive care appreciate pulmonology recommendations (3) Pneumonia: Code(s): J18.9 - Pneumonia, unspecified organism Status: Acute Assessment and Plan: repeat CXR on 05/06 showed patchy left lower lobe infiltrate, concerning for pneumonia continue vancomycin and Primaxin for coverage of hospital-acquired pneumonia RSV negative extended respiratory pathogen panel pending per pulmonology recommendations supportive care (4) Chronic respiratory failure with hypoxia: Code(s): J96.11 - Chronic respiratory failure with hypoxia Status: Chronic Assessment and Plan: Home O2 requirement 1-2 liters nasal cannula 24 hours daily. Currently maintaining adequate O2 sats on 2 L supplemental O2, consistent with home setting Continue supplemental oxygen to maintain sats >90% (5) Chest tightness: Code(s): R07.89 - Other chest pain Status: Acute Assessment and Plan: Improved. Patient c/o pleuritic chest pain. This is likely related to work of breathing, cough, and acute COPD exacerbation. Heart catheterization 04/02/22 showed minimal atherosclerosis of proximal LAD and not progression of disease over 2 years. Well's score 4.5 points moderate risk for PE. CTA chest negative for PE (6) Hyperlipidemia: Qualifiers: Hyperlipidemia type: mixed hyperlipidemia Qualified Code(s): E78.2 - Mixed hyperlipidemia Code(s): E78.5 - Hyperlipidemia, unspecified Status: Chronic Assessment and Plan: Chronic, stable. Continue crestor. (7) Gastroesophageal reflux disease: Qualifiers: Esophagitis presence: esophagitis presence not specified Qualified Code(s): K21.9 - Gastro-esophageal reflux disease without esophagitis Code(s): K21.9 - Gastro-esophageal reflux disease without esophagitis Status: Chronic Assessment and Plan: Chronic, stable. Continue protonix 40 mg BID (8) SVT (supraventricular tachycardia): Code(s): I47.1 - Supraventricular tachycardia Status: Chronic Assessment and Plan: no acute issues Continue diltiazem Subjective Date/time seen: 05/08/22 16:33 Interval history: Date of service: 05/08/2022 Mary Kate Keith is a 77-year-old female with a history of COPD, chronic respiratory failure on 1-2 L supplemental O2, GERD, S[place]RARIO, and SVT who is seen in follow-up for COPD exacerbation. she continues to feel very poorly today. She feels more short of breath and feels that she is working harder to breathe. She is coughing less frequently and has not had much mucus production today. She is still able to get up and walk to and from the bathroom but no significant difficulty with this and does have some pleuritic chest discomfort with activity and with cough. She did have a bowel
[2022-05-09] VITALS (18 sets, daily range): BP systolic 117–140; BP diastolic 72–90; PULSE 80–101; RESP 18–24; TEMP 36.3–36.9; O2SAT 90–96
[2022-05-09] MEDS: IPRATROPIUM BR 0.02% INH SOLN 0.5 MG/2.5 ML VIAL INHALATION ×6 (00:37→21:21)
[2022-05-09] MEDS: ALBUTEROL SULFATE NEB 2.5 MG/3 ML INH INHALATION ×6 (00:37→21:21)
[2022-05-09 05:12] LABS: Hematocrit 34.9 % (37.0-47.0); Mean Corpuscular HGB Conc 31.5 g/dl (32-36); Mean Corpuscular Hemoglobin 29.5 pg (26-34); Mean Corpuscular Volume 93.6 fl (80-100); Mean Platelet Volume 11.4 fl (7.4-10.4); Platelet Count Result 229 k/mm3 (150-375); Red Blood Count 3.73 M/mm3 (4.2-5.4); Red Cell Distribution Width 14.7 % (11.5-14.5); White Blood Count 18.5 K/mm3 (4.5-10.0)
[2022-05-09 05:22] LABS: Anion Gap 5 mmol/L (8-16); Blood Urea Nitrogen 18 mg/dL (7-17); Calcium 7.9 mg/dL (8.4-10.2); Carbon Dioxide 30 mmol/L (22-30); Chloride 102 mmol/L (98-107); Estimated CRCL calculation 51 ml/min; Estimated Glomerular Filt Rate > 60; Glucose 82 mg/dL (65-110); Potassium 3.7 mmol/L (3.4-5.0); Sodium 137 mmol/L (137-145)
[2022-05-09] MEDS: BENZOCAINE/MENTHOL (*BKC) 18 EA LOZENGE 1 LOZENGE PO (06:05)
[2022-05-09] MEDS: polyethylene glycoL 3350 17 GM POWD.PACK PO (08:40)
[2022-05-09] MEDS: CYANOCOBALAMIN 1,000 MCG TABLET 1000 MCG PO (08:40)
[2022-05-09] MEDS: OSELTAMIVIR PHOSPHATE 75 MG CAPSULE PO ×2 (08:41→21:10)
[2022-05-09] MEDS: ROSUVASTATIN 10 MG TABLET 20 MG PO (08:41)
[2022-05-09] MEDS: DOCUSATE SODIUM 100 MG CAPSULE PO ×2 (08:41→21:10)
[2022-05-09] MEDS: guaiFENesin 12 HR 600 MG TABCR PO ×2 (08:41→21:10)
[2022-05-09] MEDS: LORATADINE 5 MG TABLET PO (08:41)
[2022-05-09] MEDS: dilTIAZem HCL CD 180 MG CAP.ER.24H PO (08:41)
[2022-05-09] MEDS: PANTOPRAZOLE 40 MG TABLET PO ×2 (08:41→17:17)
--- NOTE | 2022-05-09 09:26 | PM.PNPUL ---
Progress Note: A&P Assessment and Plan (1) COPD with acute exacerbation: Code(s): J44.1 - Chronic obstructive pulmonary disease with (acute) exacerbation Status: Acute Assessment and Plan: GOLD grade 2 group D COPD (60 PY, quit 2018 with [id number]% predicted on 04/14/2022) followed in the [facility] and last seen on 04/04/2022. on 04/04/2022 she reported shortness of breath with limited activity if she over exerts herself she had chest tightness and dizziness she was taking budesonide 0.5 mg b.i.d., ipratropium nebs p.r.n. q.i.d. and Xopenex p.r.n. t.i.d.. She had been treated with prednisone 50 mg x 5 days for COPD flare on 03/28/2022, her CAT score was 34. She was on 3 L oxygen all the time and the plan was to add Brovana, obtain PFTs and get a home O2 assessment. Patient now has 2 - 3 week worsening shortness of breath, cough, wheezing and presented to the emergency room on 04/29/2022. COVID RT PCR negative, influenza swab negative, BNP 838 without evidence of fluid overload and a CT angiogram was negative for PE but with severe apical predominant emphysema. The patient was treated for COPD exacerbation with IV steroids, bronchodilators and azithromycin and On 05/06 had a chest x-ray with a patchy infiltrate in the left lower lobe that was new compared to 04/29. Was started on ceftriaxone and azithomycin was restarted. She feels worse today than she did on presentation 04/29. I will treat the patient for a hospital-acquired infection in start vancomycin and imipenem. I will send sputum culture. I will look for additional infectious agents and repeat a COVID and influenza test and send RSV RT PCR study. I have also ordered a extended respiratory pathogen panel. I will check a blood gas to exclude hypercarbic respiratory failure. I will check an echocardiogram and a BNP to assess for fluid overload, LV function, RV function and pulmonary hypertension. I will change her Solu-Medrol to 20 mg IV q.6 hours, I will increase her ipratropium 2.5 mg q.4 hours, I will change her levalbuterol to albuterol and give her 2.5 mg q.4 hours. 11/15 today the patient tells me she feels worse than yesterday. She continues with cough, phlegm and wheezing. Saturations on 2 L nasal cannula are 96%. White blood cell count is 17.6, creatinine is 0.7. She has bilateral expiratory wheezes on exam. She is now positive for influenza a and I suspect this is the reason why she has not responded to standard COPD exacerbation treatment. At this time I have discontinued systemic and inhaled steroids and will continue on at albuterol 2.5 mg nebs q.4 hours and ipratropium 0.5 mg nebs q.4 hours. 05/09 today the patient tells me that she is improved. She states she has 20% back to normal but her breathing is better. Her cough and phlegm are present but have decreased. Her dyspnea on exertion is the same. Currently she is on 2 L nasal cannula saturations 90%. Her white blood cell count is 18.5, her creatinine is 0.7. wheezing 7 decreased today. I will change her albuterol and ipratropium nebulizers to q.4 hours while awake. Will follow with you. (2) Influenza A: Code(s): J10.1 - Influenza due to other identified influenza virus with other respiratory manifestations Status: Acute Assessment and Plan: 05/08 Repeat influenza RT PCR study was positive for influenza A. Oseltamivir 75 mg p.o. q.12 hours was started. Systemic and inhaled steroids were discontinued. Repeat COVID and RT PCR for RSV are negative. Chest x-ray today shows stable bibasilar interstitial infiltrates. At this point I would continue vancomycin and imipenem which were started on 05/07/2022. 05/09 Patient has improved today, she remains on 2 L nasal cannula which is her home setting. She is on day 2 oseltamivir and and she finished a course of 5 days azithromycin on 05/04 and is now day 3 vancomycin and imipenem. Subjective Date/time
--- NOTE | 2022-05-09 11:38 | PCPTNOTE ---
Attempted to see patient for PT, however patient declined. Patient reported she just got back in bed from walking to restroom and back and can not work with PT right now. Encouraged patient to participate, patient continued to decline.
--- NOTE | 2022-05-09 12:58 | P.PNIM_ITS ---
Progress Note: A&P Assessment and Plan (1) COPD with acute exacerbation: Code(s): J44.1 - Chronic obstructive pulmonary disease with (acute) exacerbation Status: Acute Assessment and Plan: patient presented with 1 week of worsening cough, shortness of breath, wheezing with lack of improvement to standard treatment including course of IV steroids and azithromycin * Appreciate pulmonology consultation * IV and inhaled steroids have been discontinued as patient has tested positive for influenza A * Albuterol and ipratropium nebs q4h while awake * ABG completed without evidence of hypercapnia * echocardiogram completed without evidence of decompensated heart failure. EF is within normal limits and patient has grade 1 diastolic dysfunction (2) Influenza A: Code(s): J10.1 - Influenza due to other identified influenza virus with other respiratory manifestations Status: Acute Assessment and Plan: negative influenza A on admission on 04/29. Recheck on 05/07 is positive. onset of illness is unable to be determined * begin Tamiflu 75 mg q.12 for 5 days * supportive care * appreciate pulmonology recommendations (3) Pneumonia: Code(s): J18.9 - Pneumonia, unspecified organism Status: Acute Assessment and Plan: repeat CXR on 05/06 showed patchy left lower lobe infiltrate, concerning for pneumonia * continue vancomycin and Primaxin for coverage of hospital-acquired pneumonia * RSV negative * extended respiratory pathogen panel pending per pulmonology recommendations * supportive care (4) Chronic respiratory failure with hypoxia: Code(s): J96.11 - Chronic respiratory failure with hypoxia Status: Chronic Assessment and Plan: Home O2 requirement 1-2 liters nasal cannula 24 hours daily. * Currently maintaining adequate O2 sats on 2 L supplemental O2, consistent with home setting * Continue supplemental oxygen to maintain sats >90% (5) Chest tightness: Code(s): R07.89 - Other chest pain Status: Resolved Assessment and Plan: Resolved. Patient c/o pleuritic chest pain. This is likely related to work of breathing, cough, and acute COPD exacerbation. * Heart catheterization 04/02/22 showed minimal atherosclerosis of proximal LAD and not progression of disease over 2 years. * Well's score 4.5 points moderate risk for PE. CTA chest negative for PE (6) Hyperlipidemia: Qualifiers: Hyperlipidemia type: mixed hyperlipidemia Qualified Code(s): E78.2 - Mixed hyperlipidemia Code(s): E78.5 - Hyperlipidemia, unspecified Status: Chronic Assessment and Plan: Chronic, stable. * Continue crestor. (7) Gastroesophageal reflux disease: Qualifiers: Esophagitis presence: esophagitis presence not specified Qualified Code(s): K21.9 - Gastro-esophageal reflux disease without esophagitis Code(s): K21.9 - Gastro-esophageal reflux disease without esophagitis Status: Chronic Assessment and Plan: Chronic, stable. * Continue protonix 40 mg BID (8) SVT (supraventricular tachycardia): Code(s): I47.1 - Supraventricular tachycardia Status: Chronic Assessment and Plan: no acute issues * Continue diltiazem Subjective Date/time seen: 05/09/22 12:58 Interval history: Date of service: 05/09/2022 Mary Kate Keith is a 77-year-old female with a history of COPD, chronic respiratory failure on 1-2 L supplemental O2, GERD, S[place]RAR[place], and
--- NOTE | 2022-05-09 12:58 | PM.IMPN ---
Progress Note: A&P Assessment and Plan (1) COPD with acute exacerbation: Code(s): J44.1 - Chronic obstructive pulmonary disease with (acute) exacerbation Status: Acute Assessment and Plan: patient presented with 1 week of worsening cough, shortness of breath, wheezing with lack of improvement to standard treatment including course of IV steroids and azithromycin Appreciate pulmonology consultation IV and inhaled steroids have been discontinued as patient has tested positive for influenza A Albuterol and ipratropium nebs q4h while awake ABG completed without evidence of hypercapnia echocardiogram completed without evidence of decompensated heart failure. EF is within normal limits and patient has grade 1 diastolic dysfunction (2) Influenza A: Code(s): J10.1 - Influenza due to other identified influenza virus with other respiratory manifestations Status: Acute Assessment and Plan: negative influenza A on admission on 04/29. Recheck on 05/07 is positive. onset of illness is unable to be determined begin Tamiflu 75 mg q.12 for 5 days supportive care appreciate pulmonology recommendations (3) Pneumonia: Code(s): J18.9 - Pneumonia, unspecified organism Status: Acute Assessment and Plan: repeat CXR on 05/06 showed patchy left lower lobe infiltrate, concerning for pneumonia continue vancomycin and Primaxin for coverage of hospital-acquired pneumonia RSV negative extended respiratory pathogen panel pending per pulmonology recommendations supportive care (4) Chronic respiratory failure with hypoxia: Code(s): J96.11 - Chronic respiratory failure with hypoxia Status: Chronic Assessment and Plan: Home O2 requirement 1-2 liters nasal cannula 24 hours daily. Currently maintaining adequate O2 sats on 2 L supplemental O2, consistent with home setting Continue supplemental oxygen to maintain sats >90% (5) Chest tightness: Code(s): R07.89 - Other chest pain Status: Resolved Assessment and Plan: Resolved. Patient c/o pleuritic chest pain. This is likely related to work of breathing, cough, and acute COPD exacerbation. Heart catheterization 04/02/22 showed minimal atherosclerosis of proximal LAD and not progression of disease over 2 years. Well's score 4.5 points moderate risk for PE. CTA chest negative for PE (6) Hyperlipidemia: Qualifiers: Hyperlipidemia type: mixed hyperlipidemia Qualified Code(s): E78.2 - Mixed hyperlipidemia Code(s): E78.5 - Hyperlipidemia, unspecified Status: Chronic Assessment and Plan: Chronic, stable. Continue crestor. (7) Gastroesophageal reflux disease: Qualifiers: Esophagitis presence: esophagitis presence not specified Qualified Code(s): K21.9 - Gastro-esophageal reflux disease without esophagitis Code(s): K21.9 - Gastro-esophageal reflux disease without esophagitis Status: Chronic Assessment and Plan: Chronic, stable. Continue protonix 40 mg BID (8) SVT (supraventricular tachycardia): Code(s): I47.1 - Supraventricular tachycardia Status: Chronic Assessment and Plan: no acute issues Continue diltiazem Subjective Date/time seen: 05/09/22 12:58 Interval history: Date of service: 05/09/2022 Mary Kate Keith is a 77-year-old female with a history of COPD, chronic respiratory failure on 1-2 L supplemental O2, GERD, S[place], and SVT who is seen in follow-up for COPD exacerbation and influenza. She was feeling slightly improved this morning. On my evaluation, she had just come back from walking to the bathroom and was quite winded from this. Circ cough is improving. Also seems to have some improvement in her wheezing. Chest pain has resolved. Denies abdominal pain, nausea, vomiting, fever, chills, dizziness, lightheadedness. Review of Systems Review of Systems: A
--- NOTE | 2022-05-09 14:56 | PC.NURSE ---
On 05/09/22, the student, [Dasha Salazar], provided care and completed [facility] documentation on this patient. I have reviewed the student's documentation and agree with the findings.
[2022-05-09] MEDS: FUROSEMIDE 20 MG TABLET PO (17:17)
[2022-05-10] VITALS (10 sets, daily range): BP systolic 108–141; BP diastolic 59–91; PULSE 86–92; RESP 17–20; TEMP 36.7–37.1; O2SAT 92–95
[2022-05-10 06:47] LABS: Hematocrit 41.5 % (37.0-47.0); Hemoglobin 13.1 g/dL (12.0-15.0); Mean Corpuscular HGB Conc 31.6 g/dl (32-36); Mean Corpuscular Hemoglobin 29.4 pg (26-34); Mean Corpuscular Volume 93.3 fl (80-100); Mean Platelet Volume 11.9 fl (7.4-10.4); Platelet Count Result 264 k/mm3 (150-375); Red Blood Count 4.45 M/mm3 (4.2-5.4); White Blood Count 18.6 K/mm3 (4.5-10.0)
[2022-05-10 07:05] LABS: Anion Gap 11 mmol/L (8-16); Blood Urea Nitrogen 13 mg/dL (7-17); Calcium 8.4 mg/dL (8.4-10.2); Carbon Dioxide 32 mmol/L (22-30); Chloride 95 mmol/L (98-107); Estimated CRCL calculation 51 ml/min; Estimated Glomerular Filt Rate > 60; Glucose 111 mg/dL (65-110); Potassium 3.7 mmol/L (3.4-5.0); Sodium 138 mmol/L (137-145)
--- NOTE | 2022-05-10 08:06 | PM.PNPUL ---
Progress Note: A&P Assessment and Plan (1) COPD with acute exacerbation: Code(s): J44.1 - Chronic obstructive pulmonary disease with (acute) exacerbation Status: Acute Assessment and Plan: GOLD grade 2 group D COPD (61 PY, quit 2018 with [id number]% predicted on 04/14/2022) followed in the Pulmonary Clinic and last seen on 04/04/2022. on 04/04/2022 she reported shortness of breath with limited activity if she over exerts herself she had chest tightness and dizziness she was taking budesonide 0.5 mg b.i.d., ipratropium nebs p.r.n. q.i.d. and Xopenex p.r.n. t.i.d.. She had been treated with prednisone 50 mg x 5 days for COPD flare on 03/28/2022, her CAT score was 34. She was on 3 L oxygen all the time and the plan was to add Brovana, obtain PFTs and get a home O2 assessment. Patient now has 2 - 3 week worsening shortness of breath, cough, wheezing and presented to the emergency room on 04/29/2022. COVID RT PCR negative, influenza swab negative, BNP 838 without evidence of fluid overload and a CT angiogram was negative for PE but with severe apical predominant emphysema. The patient was treated for COPD exacerbation with IV steroids, bronchodilators and azithromycin and On 05/06 had a chest x-ray with a patchy infiltrate in the left lower lobe that was new compared to 04/29. Was started on ceftriaxone and azithomycin was restarted. She feels worse today than she did on presentation 04/29. I will treat the patient for a hospital-acquired infection in start vancomycin and imipenem. I will send sputum culture. I will look for additional infectious agents and repeat a COVID and influenza test and send RSV RT PCR study. I have also ordered a extended respiratory pathogen panel. I will check a blood gas to exclude hypercarbic respiratory failure. I will check an echocardiogram and a BNP to assess for fluid overload, LV function, RV function and pulmonary hypertension. I will change her Solu-Medrol to 20 mg IV q.6 hours, I will increase her ipratropium 2.5 mg q.4 hours, I will change her levalbuterol to albuterol and give her 2.5 mg q.4 hours. 11/15 today the patient tells me she feels worse than yesterday. She continues with cough, phlegm and wheezing. Saturations on 2 L nasal cannula are 96%. White blood cell count is 17.6, creatinine is 0.7. She has bilateral expiratory wheezes on exam. She is now positive for influenza a and I suspect this is the reason why she has not responded to standard COPD exacerbation treatment. At this time I have discontinued systemic and inhaled steroids and will continue on at albuterol 2.5 mg nebs q.4 hours and ipratropium 0.5 mg nebs q.4 hours. 05/09 today the patient tells me that she is improved. She states she has 20% back to normal but her breathing is better. Her cough and phlegm are present but have decreased. Her dyspnea on exertion is the same. Currently she is on 2 L nasal cannula saturations 90%. Her white blood cell count is 18.5, her creatinine is 0.7. wheezing 7 decreased today. I will change her albuterol and ipratropium nebulizers to q.4 hours while awake. 05/10 Continues to slowly improve. Tells me she is 36% back to normal. Her cough is better she is taking deeper breath she still has phlegm production. She had no wheezes on exam today. She is on 2 L nasal cannula saturations 93%. White blood cell count 18.6. Creatinine is 0.7. No wheezes on albuterol and ipratropium q.4 hours while awake. When she is ready to discharge home would transition her to long-acting beta agonist and long-acting muscarinic antagonist combination such as Anoro Ellipta, stiolto respimat or bevespi. patient should have an overnight oximetry on 2 L the night before she is discharged and oxygen adjusted accordingly. She should have a formal home O2 assessment prior to discharge. (2) Influenza A: Code(s): J10.1 - Influenza due to other identified influenza virus with other respi
[2022-05-10] MEDS: ALBUTEROL SULFATE NEB 2.5 MG/3 ML INH INHALATION ×3 (08:19→21:10)
[2022-05-10] MEDS: IPRATROPIUM BR 0.02% INH SOLN 0.5 MG/2.5 ML VIAL INHALATION ×3 (08:19→21:10)
[2022-05-10] MEDS: PANTOPRAZOLE 40 MG TABLET PO ×2 (10:00→17:16)
[2022-05-10] MEDS: LORATADINE 5 MG TABLET PO (10:00)
[2022-05-10] MEDS: polyethylene glycoL 3350 17 GM POWD.PACK PO (10:00)
[2022-05-10] MEDS: OSELTAMIVIR PHOSPHATE 75 MG CAPSULE PO ×2 (10:00→22:13)
[2022-05-10] MEDS: dilTIAZem HCL CD 180 MG CAP.ER.24H PO (10:00)
[2022-05-10] MEDS: ROSUVASTATIN 10 MG TABLET 20 MG PO (10:00)
[2022-05-10] MEDS: CYANOCOBALAMIN 1,000 MCG TABLET 1000 MCG PO (10:00)
[2022-05-10] MEDS: DOCUSATE SODIUM 100 MG CAPSULE PO ×2 (10:00→22:13)
[2022-05-10] MEDS: guaiFENesin 12 HR 600 MG TABCR PO ×2 (10:00→22:13)
--- NOTE | 2022-05-10 16:57 | P.PNIM_ITS ---
Progress Note: A&P Assessment and Plan (1) COPD with acute exacerbation: Code(s): J44.1 - Chronic obstructive pulmonary disease with (acute) exacerbation Status: Acute Assessment and Plan: patient presented with 1 week of worsening cough, shortness of breath, wheezing with lack of improvement to standard treatment including course of IV steroids and azithromycin * Appreciate pulmonology consultation * IV and inhaled steroids have been discontinued as patient has tested positive for influenza A * Albuterol and ipratropium nebs q4h while awake * ABG completed without evidence of hypercapnia * echocardiogram completed without evidence of decompensated heart failure. EF is within normal limits and patient has grade 1 diastolic dysfunction (2) Influenza A: Code(s): J10.1 - Influenza due to other identified influenza virus with other respiratory manifestations Status: Acute Assessment and Plan: negative influenza A on admission on 04/29. Recheck on 05/07 is positive. onset of illness is unable to be determined * Continue Tamiflu 75 mg q.12 for 5 days * supportive care * appreciate pulmonology recommendations (3) Pneumonia: Code(s): J18.9 - Pneumonia, unspecified organism Status: Acute Assessment and Plan: repeat CXR on 05/06 showed patchy left lower lobe infiltrate, concerning for p neumonia * continue vancomycin and Primaxin for coverage of hospital-acquired pneumonia. Will discontinue this evening per pulmonology recommendations as patient has received a total of 4 days of antibiotic therapy * RSV negative, COVID negative * extended respiratory pathogen panel pending per pulmonology recommendations * supportive care (4) Chronic respiratory failure with hypoxia: Code(s): J96.11 - Chronic respiratory failure with hypoxia Status: Chronic Assessment and Plan: Home O2 requirement 1-2 liters nasal cannula 24 hours daily. * Currently maintaining adequate O2 sats on 2 L supplemental O2, consistent with home setting * Continue supplemental oxygen to maintain sats >90% * Plan for overnight oximetry tonight on 2 L * Will require home O2 eval prior to discharge (5) Chest tightness: Code(s): R07.89 - Other chest pain Status: Resolved Assessment and Plan: Resolved. Patient c/o pleuritic chest pain. This is likely related to work of breathing, cough, and acute COPD exacerbation. * Heart catheterization 04/02/22 showed minimal atherosclerosis of proximal LAD and not progression of disease over 2 years. * Well's score 4.5 points moderate risk for PE. CTA chest negative for PE (6) Hyperlipidemia: Qualifiers: Hyperlipidemia type: mixed hyperlipidemia Qualified Code(s): E78.2 - Mixed hyperlipidemia Code(s): E78.5 - Hyperlipidemia, unspecified Status: Chronic Assessment and Plan: Chronic, stable. * Continue crestor. (7) Gastroesophageal reflux disease: Qualifiers: Esophagitis presence: esophagitis presence not specified Qualified Code(s): K21.9 - Gastro-esophageal reflux disease without esophagitis Code(s): K21.9 - Gastro-esophageal reflux disease without esophagitis Status: Chronic Assessment and Plan: Chronic, stable. * Continue protonix 40 mg BID (8) SVT (supraventricular tachycardia): Code(s): I47.1 - Supraventricular tachycardia Status: Chronic Assessment and Plan: no acute issues * Continue diltiazem
--- NOTE | 2022-05-10 16:57 | PM.IMPN ---
Progress Note: A&P Assessment and Plan (1) COPD with acute exacerbation: Code(s): J44.1 - Chronic obstructive pulmonary disease with (acute) exacerbation Status: Acute Assessment and Plan: patient presented with 1 week of worsening cough, shortness of breath, wheezing with lack of improvement to standard treatment including course of IV steroids and azithromycin Appreciate pulmonology consultation IV and inhaled steroids have been discontinued as patient has tested positive for influenza A Albuterol and ipratropium nebs q4h while awake ABG completed without evidence of hypercapnia echocardiogram completed without evidence of decompensated heart failure. EF is within normal limits and patient has grade 1 diastolic dysfunction (2) Influenza A: Code(s): J10.1 - Influenza due to other identified influenza virus with other respiratory manifestations Status: Acute Assessment and Plan: negative influenza A on admission on 04/29. Recheck on 05/07 is positive. onset of illness is unable to be determined Continue Tamiflu 75 mg q.12 for 5 days supportive care appreciate pulmonology recommendations (3) Pneumonia: Code(s): J18.9 - Pneumonia, unspecified organism Status: Acute Assessment and Plan: repeat CXR on 05/06 showed patchy left lower lobe infiltrate, concerning for pneumonia continue vancomycin and Primaxin for coverage of hospital-acquired pneumonia. Will discontinue this evening per pulmonology recommendations as patient has received a total of 4 days of antibiotic therapy RSV negative, COVID negative extended respiratory pathogen panel pending per pulmonology recommendations supportive care (4) Chronic respiratory failure with hypoxia: Code(s): J96.11 - Chronic respiratory failure with hypoxia Status: Chronic Assessment and Plan: Home O2 requirement 1-2 liters nasal cannula 24 hours daily. Currently maintaining adequate O2 sats on 2 L supplemental O2, consistent with home setting Continue supplemental oxygen to maintain sats >90% Plan for overnight oximetry tonight on 2 L Will require home O2 eval prior to discharge (5) Chest tightness: Code(s): R07.89 - Other chest pain Status: Resolved Assessment and Plan: Resolved. Patient c/o pleuritic chest pain. This is likely related to work of breathing, cough, and acute COPD exacerbation. Heart catheterization 04/02/22 showed minimal atherosclerosis of proximal LAD and not progression of disease over 2 years. Well's score 4.5 points moderate risk for PE. CTA chest negative for PE (6) Hyperlipidemia: Qualifiers: Hyperlipidemia type: mixed hyperlipidemia Qualified Code(s): E78.2 - Mixed hyperlipidemia Code(s): E78.5 - Hyperlipidemia, unspecified Status: Chronic Assessment and Plan: Chronic, stable. Continue crestor. (7) Gastroesophageal reflux disease: Qualifiers: Esophagitis presence: esophagitis presence not specified Qualified Code(s): K21.9 - Gastro-esophageal reflux disease without esophagitis Code(s): K21.9 - Gastro-esophageal reflux disease without esophagitis Status: Chronic Assessment and Plan: Chronic, stable. Continue protonix 40 mg BID (8) SVT (supraventricular tachycardia): Code(s): I47.1 - Supraventricular tachycardia Status: Chronic Assessment and Plan: no acute issues Continue diltiazem Subjective Date/time seen: 05/10/22 16:57 Interval history: Date of service: 05/09/2022 Mary Kate Keith is a 77-year-old female with a history of COPD, chronic respiratory failure on 1-2 L supplemental O2, GERD, SAGRARIO, and SVT who is seen in follow-up for COPD exacerbation and influenza. She is asleep during my encounter. She is arousable but endorses feeling very fatigued and would like to rest. She does continue to endorse shortness o
--- NOTE | 2022-05-10 22:10 | PCRCNOTE ---
apnea link started
[2022-05-11] VITALS (17 sets, daily range): BP systolic 119–121; BP diastolic 62–77; PULSE 84–108; RESP 16–20; TEMP 36.9–37.2; O2SAT 87–96
[2022-05-11 05:39] LABS: Hematocrit 36.1 % (37.0-47.0); Hemoglobin 11.5 g/dL (12.0-15.0); Mean Corpuscular HGB Conc 31.9 g/dl (32-36); Mean Corpuscular Hemoglobin 28.8 pg (26-34); Mean Corpuscular Volume 90.3 fl (80-100); Mean Platelet Volume 11.3 fl (7.4-10.4); Platelet Count Result 237 k/mm3 (150-375); Red Cell Distribution Width 14.9 % (11.5-14.5); White Blood Count 15.3 K/mm3 (4.5-10.0)
[2022-05-11 05:50] LABS: Anion Gap 10 mmol/L (8-16); Blood Urea Nitrogen 13 mg/dL (7-17); Carbon Dioxide 29 mmol/L (22-30); Chloride 100 mmol/L (98-107); Estimated CRCL calculation 51 ml/min; Estimated Glomerular Filt Rate > 60; Glucose 101 mg/dL (65-110); Potassium 3.8 mmol/L (3.4-5.0); Sodium 139 mmol/L (137-145)
[2022-05-11] MEDS: dilTIAZem HCL CD 180 MG CAP.ER.24H PO (08:17)
[2022-05-11] MEDS: polyethylene glycoL 3350 17 GM POWD.PACK PO (08:17)
[2022-05-11] MEDS: DOCUSATE SODIUM 100 MG CAPSULE PO ×2 (08:18→21:23)
[2022-05-11] MEDS: LORATADINE 5 MG TABLET PO (08:18)
[2022-05-11] MEDS: CYANOCOBALAMIN 1,000 MCG TABLET 1000 MCG PO (08:18)
[2022-05-11] MEDS: guaiFENesin 12 HR 600 MG TABCR PO ×2 (08:18→21:23)
[2022-05-11] MEDS: PANTOPRAZOLE 40 MG TABLET PO ×2 (08:18→17:05)
[2022-05-11] MEDS: ROSUVASTATIN 10 MG TABLET 20 MG PO (08:18)
[2022-05-11] MEDS: OSELTAMIVIR PHOSPHATE 75 MG CAPSULE PO ×2 (08:18→21:23)
[2022-05-11] MEDS: ALBUTEROL SULFATE NEB 2.5 MG/3 ML INH INHALATION ×4 (09:24→20:08)
[2022-05-11] MEDS: IPRATROPIUM BR 0.02% INH SOLN 0.5 MG/2.5 ML VIAL INHALATION ×4 (09:25→20:08)
--- NOTE | 2022-05-11 11:13 | HOMEO2EVAL ---
Evaluation was performed at [facility] Home Oxygen Evaluation RC: Home Oxygen (O2) Evaluation Start: 05/11/22 07:22 Freq: ONCE Status: Active Protocol: RPE Activity Type Activity Date Activity User E-sign Co-sign Detail Recorded Client Recorded Date Recorded By Document 05/11/22 10:00 JOE [email or web address] 05/11/22 11:13 JOE Document 05/11/22 10:01 JOE [email or web address] 05/11/22 11:13 JOE Document 05/11/22 10:10 JOE [email or web address] 05/11/22 11:13 [facility] 05/11/22 05/11/22 05/11/22 10:00 10:01 10:10 Home O2 Evaluation [Oxygen] -Test Phase Resting Resting Exercise -Oxygen Delivery Room Air Nasal Cannula Nasal Cannula -Oxygen Flow Rate (L/min) 2 2 [Pulse Oximetry] -Pulse Oximetry (90-100 %) 87 L 92 93 [Pulse Rate] -Pulse Rate (60-100 beats/min) 108 H [Comments] -Home Oxygen Evaluation Comments PT REQUIRES 2 L AT REST AND WITH EXERTION. PT REFUSED TO WALK, BUT SHE TRANSFERED UP TO WHEELCHAIR FOR XRAY [Charges] -Treatment Charges O2 Evaluation - Inpatient
--- NOTE | 2022-05-11 11:13 | PCRCNOTE ---
HOME O2 EVAL DONE, PT REQUIRES 2 L AT REST AND WITH EXERTION. PT CURRENTLY HAS HOME O2 WITH IV RESPIRATORY CARE.
--- NOTE | 2022-05-11 12:52 | PC.NURSE ---
On 05/11/22, the student, [Jo Soler], provided care and completed [facility] documentation on this patient. I have reviewed the student's documentation and agree with the findings.
--- NOTE | 2022-05-11 14:06 | P.PNIM_ITS ---
Progress Note: A&P Assessment and Plan (1) COPD with acute exacerbation: Code(s): J44.1 - Chronic obstructive pulmonary disease with (acute) exacerbation Status: Acute Assessment and Plan: Patient presented with 1 week of worsening cough, shortness of breath, wheezing with lack of improvement to standard treatment including course of IV steroids and azithromycin * Appreciate pulmonology consultation * IV and inhaled steroids have been discontinued as patient has tested positive for influenza A * Albuterol and ipratropium nebs q4h while awake * ABG completed without evidence of hypercapnia * echocardiogram completed without evidence of decompensated heart failure. EF is within normal limits and patient has grade 1 diastolic dysfunction (2) Influenza A: Code(s): J10.1 - Influenza due to other identified influenza virus with other respiratory manifestations Status: Acute Assessment and Plan: negative influenza A on admission on 04/29. Recheck on 05/07 is positive. onset of illness is unable to be determined * Continue Tamiflu 75 mg q.12 for 5 days * supportive care * appreciate pulmonology recommendations (3) Pneumonia: Code(s): J18.9 - Pneumonia, unspecified organism Status: Acute Assessment and Plan: repeat CXR on 05/06 showed patchy left lower lobe infiltrate, concerning for pn eumonia * Received vancomycin and Primaxin for coverage of hospital-acquired pneumonia x4 days. * RSV negative, COVID negative * extended respiratory pathogen panel pending per pulmonology recommendations * supportive care (4) Chronic respiratory failure with hypoxia: Code(s): J96.11 - Chronic respiratory failure with hypoxia Status: Chronic Assessment and Plan: Home O2 requirement 1-2 liters nasal cannula 24 hours daily. * Currently maintaining adequate O2 sats on 2 L supplemental O2, consistent with home setting * Continue supplemental oxygen to maintain sats >90% * Overnight oximetry completed on 05/11 on 2 L with only 1 minute of O2 sats <88% * Home O2 eval completed today with anticipation for patient to return home, however she reports not feeling safe to return home at this time given continued shortness of breath. Home O2 eval showed need for 2 L supplemental O2 at rest and with exertion. May need to consider repeat within 48 hours of discharge if any clinical change (5) Chest tightness: Code(s): R07.89 - Other chest pain Status: Resolved Assessment and Plan: Resolved. Patient c/o pleuritic chest pain. This is likely related to work of breathing, cough, and acute COPD exacerbation. * Heart catheterization 04/02/22 showed minimal atherosclerosis of proximal LAD and not progression of disease over 2 years. * Well's score 4.5 points moderate risk for PE. CTA chest negative for PE (6) Hyperlipidemia: Qualifiers: Hyperlipidemia type: mixed hyperlipidemia Qualified Code(s): E78.2 - Mixed hyperlipidemia Code(s): E78.5 - Hyperlipidemia, unspecified Status: Chronic Assessment and Plan: Chronic, stable. * Continue crestor. (7) Gastroesophageal reflux disease: Qualifiers: Esophagitis presence: esophagitis presence not specified Qualified Code(s): K21.9 - Gastro-esophageal reflux disease without esophagitis Code(s): K21.9 - Gastro-esophageal reflux disease without esophagitis Status: Chronic Assessment and Plan: Chronic, stable. * Continue protonix 40 mg BID (8
--- NOTE | 2022-05-11 14:06 | PM.IMPN ---
Progress Note: A&P Assessment and Plan (1) COPD with acute exacerbation: Code(s): J44.1 - Chronic obstructive pulmonary disease with (acute) exacerbation Status: Acute Assessment and Plan: Patient presented with 1 week of worsening cough, shortness of breath, wheezing with lack of improvement to standard treatment including course of IV steroids and azithromycin Appreciate pulmonology consultation IV and inhaled steroids have been discontinued as patient has tested positive for influenza A Albuterol and ipratropium nebs q4h while awake ABG completed without evidence of hypercapnia echocardiogram completed without evidence of decompensated heart failure. EF is within normal limits and patient has grade 1 diastolic dysfunction (2) Influenza A: Code(s): J10.1 - Influenza due to other identified influenza virus with other respiratory manifestations Status: Acute Assessment and Plan: negative influenza A on admission on 04/29. Recheck on 05/07 is positive. onset of illness is unable to be determined Continue Tamiflu 75 mg q.12 for 5 days supportive care appreciate pulmonology recommendations (3) Pneumonia: Code(s): J18.9 - Pneumonia, unspecified organism Status: Acute Assessment and Plan: repeat CXR on 05/06 showed patchy left lower lobe infiltrate, concerning for pneumonia Received vancomycin and Primaxin for coverage of hospital-acquired pneumonia x4 days. RSV negative, COVID negative extended respiratory pathogen panel pending per pulmonology recommendations supportive care (4) Chronic respiratory failure with hypoxia: Code(s): J96.11 - Chronic respiratory failure with hypoxia Status: Chronic Assessment and Plan: Home O2 requirement 1-2 liters nasal cannula 24 hours daily. Currently maintaining adequate O2 sats on 2 L supplemental O2, consistent with home setting Continue supplemental oxygen to maintain sats >90% Overnight oximetry completed on 05/11 on 2 L with only 1 minute of O2 sats <88% Home O2 eval completed today with anticipation for patient to return home, however she reports not feeling safe to return home at this time given continued shortness of breath. Home O2 eval showed need for 2 L supplemental O2 at rest and with exertion. May need to consider repeat within 48 hours of discharge if any clinical change (5) Chest tightness: Code(s): R07.89 - Other chest pain Status: Resolved Assessment and Plan: Resolved. Patient c/o pleuritic chest pain. This is likely related to work of breathing, cough, and acute COPD exacerbation. Heart catheterization 10/10/22 showed minimal atherosclerosis of proximal LAD and not progression of disease over 2 years. Well's score 4.5 points moderate risk for PE. CTA chest negative for PE (6) Hyperlipidemia: Qualifiers: Hyperlipidemia type: mixed hyperlipidemia Qualified Code(s): E78.2 - Mixed hyperlipidemia Code(s): E78.5 - Hyperlipidemia, unspecified Status: Chronic Assessment and Plan: Chronic, stable. Continue crestor. (7) Gastroesophageal reflux disease: Qualifiers: Esophagitis presence: esophagitis presence not specified Qualified Code(s): K21.9 - Gastro-esophageal reflux disease without esophagitis Code(s): K21.9 - Gastro-esophageal reflux disease without esophagitis Status: Chronic Assessment and Plan: Chronic, stable. Continue protonix 40 mg BID (8) SVT (supraventricular tachycardia): Code(s): I47.1 - Supraventricular tachycardia Status: Chronic Assessment and Plan: no acute issues Continue diltiazem Subjective Date/time seen: 05/11/22 14:06 Interval history: Date of service: 05/10/2022 Mary Kate Keith is a 77-year-old female with a history of COPD, chronic respiratory failure on 1-2 L supplemental O2, GERD, S[place]RARIO, and SVT who is se
[2022-05-12] VITALS (13 sets, daily range): BP systolic 97–123; BP diastolic 64–83; PULSE 95–112; RESP 16–22; TEMP 36.7–37.1; O2SAT 90–95
[2022-05-12 05:52] LABS: Hemoglobin 11.5 g/dL (12.0-15.0); Mean Corpuscular HGB Conc 31.9 g/dl (32-36); Mean Corpuscular Hemoglobin 29.6 pg (26-34); Mean Corpuscular Volume 92.8 fl (80-100); Mean Platelet Volume 11.4 fl (7.4-10.4); Platelet Count Result 249 k/mm3 (150-375); Red Blood Count 3.88 M/mm3 (4.2-5.4); Red Cell Distribution Width 14.9 % (11.5-14.5); White Blood Count 15.1 K/mm3 (4.5-10.0)
[2022-05-12 06:00] LABS: Anion Gap 4 mmol/L (8-16); Blood Urea Nitrogen 13 mg/dL (7-17); Calcium 8.3 mg/dL (8.4-10.2); Carbon Dioxide 27 mmol/L (22-30); Chloride 104 mmol/L (98-107); Estimated CRCL calculation 59 ml/min; Estimated Glomerular Filt Rate > 60; Glucose 106 mg/dL (65-110); Sodium 135 mmol/L (137-145)
[2022-05-12] MEDS: ALBUTEROL SULFATE NEB 2.5 MG/3 ML INH INHALATION ×4 (08:38→20:55)
[2022-05-12] MEDS: IPRATROPIUM BR 0.02% INH SOLN 0.5 MG/2.5 ML VIAL INHALATION ×4 (08:38→20:57)
[2022-05-12] MEDS: dilTIAZem HCL CD 180 MG CAP.ER.24H PO (09:39)
[2022-05-12] MEDS: OSELTAMIVIR PHOSPHATE 75 MG CAPSULE PO ×2 (09:39→20:57)
[2022-05-12] MEDS: ROSUVASTATIN 10 MG TABLET 20 MG PO (09:39)
[2022-05-12] MEDS: LORATADINE 5 MG TABLET PO (09:39)
[2022-05-12] MEDS: DOCUSATE SODIUM 100 MG CAPSULE PO ×2 (09:39→20:57)
[2022-05-12] MEDS: guaiFENesin 12 HR 600 MG TABCR PO ×2 (09:39→20:57)
[2022-05-12] MEDS: CYANOCOBALAMIN 1,000 MCG TABLET 1000 MCG PO (09:39)
[2022-05-12] MEDS: polyethylene glycoL 3350 17 GM POWD.PACK PO (09:39)
[2022-05-12] MEDS: PANTOPRAZOLE 40 MG TABLET PO ×2 (09:39→17:18)
--- NOTE | 2022-05-12 10:30 | P.PNIM_ITS ---
Progress Note: A&P Assessment and Plan (1) COPD with acute exacerbation: Code(s): J44.1 - Chronic obstructive pulmonary disease with (acute) exacerbation Status: Acute Assessment and Plan: * Presented with 1 week of worsening cough, shortness of breath, wheezing with lack of improvement to standard treatment including course of IV steroids and azithromycin * Appreciate pulmonology consultation * IV and inhaled steroids have been discontinued as patient has tested positive for influenza A * Albuterol and ipratropium nebs q4h while awake * ABG completed without evidence of hypercapnia * Echocardiogram completed without evidence of decompensated heart failure. EF is within normal limits and patient has grade 1 diastolic dysfunction * WBC elevated 15.1, seems more likely to be related to the steroid use * Wheezes worsening * Wet cough noted * Sputum culture ordered * Add Pulmozyme to help loosen secretions (2) Influenza A: Code(s): J10.1 - Influenza due to other identified influenza virus with other respiratory manifestations Status: Acute Assessment and Plan: * negative influenza A on admission on 04/29. Recheck on 05/07 is positive. onset of illness is unable to be determined * Continue Tamiflu 75 mg q.12 for 5 days * supportive care * appreciate pulmonology recommendations (3) Pneumonia: Code(s): J18.9 - Pneumonia, unspecified organism Status: Acute Assessment and Plan: * repeat CXR on 05/11 showed Airspace opacities in the right mid and lower lung zones, and left lower lung zone consistent with atelectasis vs PNA * Received vancomycin and Primaxin for coverage of hospital-acquired pneumonia x4 days. * RSV negative, COVID negative * extended respiratory pathogen panel continues to pend * supportive care (4) Chronic respiratory failure with hypoxia: Code(s): J96.11 - Chronic respiratory failure with hypoxia Status: Chronic Assessment and Plan: * Home O2 requirement 1-2 liters nasal cannula 24 hours daily. * Currently maintaining adequate O2 sats on 2 L supplemental O2, consistent with home setting * Continue supplemental oxygen to maintain sats >90% * Overnight oximetry completed on 05/11 on 2 L with only 1 minute of O2 sats <88% * Home O2 eval completed today with anticipation for patient to return home, however she reports not feeling safe to return home at this time given continued shortness of breath. Home O2 eval showed need for 2 L supplemental O2 at rest and with exertion. May need to consider repeat within 48 hours of discharge if any clinical change (5) Chest tightness: Code(s): R07.89 - Other chest pain Status: Resolved Assessment and Plan: * Resolved. Patient c/o pleuritic chest pain. This is likely related to work of breathing, cough, and acute COPD exacerbation. * Heart catheterization 04/02/22 showed minimal atherosclerosis of proximal LAD and not progression of disease over 2 years. * Well's score 4.5 points moderate risk for PE. CTA chest negative for PE * Remains resolved (6) Hyperlipidemia: Qualifiers: Hyperlipidemia type: mixed hyperlipidemia Qualified Code(s): E78.2 - Mixed hyperlipidemia Code(s): E78.5 - Hyperlipidemia, unspecified Status: Chronic Assessment and Plan: * Chronic, stable. * Continue crestor. (7) Gastroeso
--- NOTE | 2022-05-12 10:30 | PM.IMPN ---
Progress Note: A&P Assessment and Plan (1) COPD with acute exacerbation: Code(s): J44.1 - Chronic obstructive pulmonary disease with (acute) exacerbation Status: Acute Assessment and Plan: Presented with 1 week of worsening cough, shortness of breath, wheezing with lack of improvement to standard treatment including course of IV steroids and azithromycin Appreciate pulmonology consultation IV and inhaled steroids have been discontinued as patient has tested positive for influenza A Albuterol and ipratropium nebs q4h while awake ABG completed without evidence of hypercapnia Echocardiogram completed without evidence of decompensated heart failure. EF is within normal limits and patient has grade 1 diastolic dysfunction WBC elevated 15.1, seems more likely to be related to the steroid use Wheezes worsening Wet cough noted Sputum culture ordered Add Pulmozyme to help loosen secretions (2) Influenza A: Code(s): J10.1 - Influenza due to other identified influenza virus with other respiratory manifestations Status: Acute Assessment and Plan: negative influenza A on admission on 04/29. Recheck on 05/07 is positive. onset of illness is unable to be determined Continue Tamiflu 75 mg q.12 for 5 days supportive care appreciate pulmonology recommendations (3) Pneumonia: Code(s): J18.9 - Pneumonia, unspecified organism Status: Acute Assessment and Plan: repeat CXR on 05/11 showed Airspace opacities in the right mid and lower lung zones, and left lower lung zone consistent with atelectasis vs PNA Received vancomycin and Primaxin for coverage of hospital-acquired pneumonia x4 days. RSV negative, COVID negative extended respiratory pathogen panel continues to pend supportive care (4) Chronic respiratory failure with hypoxia: Code(s): J96.11 - Chronic respiratory failure with hypoxia Status: Chronic Assessment and Plan: Home O2 requirement 1-2 liters nasal cannula 24 hours daily. Currently maintaining adequate O2 sats on 2 L supplemental O2, consistent with home setting Continue supplemental oxygen to maintain sats >90% Overnight oximetry completed on 05/11 on 2 L with only 1 minute of O2 sats <88% Home O2 eval completed today with anticipation for patient to return home, however she reports not feeling safe to return home at this time given continued shortness of breath. Home O2 eval showed need for 2 L supplemental O2 at rest and with exertion. May need to consider repeat within 48 hours of discharge if any clinical change (5) Chest tightness: Code(s): R07.89 - Other chest pain Status: Resolved Assessment and Plan: Resolved. Patient c/o pleuritic chest pain. This is likely related to work of breathing, cough, and acute COPD exacerbation. Heart catheterization 04/02/22 showed minimal atherosclerosis of proximal LAD and not progression of disease over 2 years. Well's score 4.5 points moderate risk for PE. CTA chest negative for PE Remains resolved (6) Hyperlipidemia: Qualifiers: Hyperlipidemia type: mixed hyperlipidemia Qualified Code(s): E78.2 - Mixed hyperlipidemia Code(s): E78.5 - Hyperlipidemia, unspecified Status: Chronic Assessment and Plan: Chronic, stable. Continue crestor. (7) Gastroesophageal reflux disease: Qualifiers: Esophagitis presence: esophagitis presence not specified Qualified Code(s): K21.9 - Gastro-esophageal reflux disease without esophagitis Code(s): K21.9 - Gastro-esophageal reflux disease without esophagitis Status: Chronic Assessment and Plan: Chronic, stable. Continue protonix 40 mg BID (8) SVT (supraventricular tachycardia): Code(s): I47.1 - Supraventricular tachycardia Status: Chronic Assessment and Plan: no a
[2022-05-12] MEDS: DORNASE ALFA INH SOLN 1 MG/ML 2.5 ML AMP 2.5 MG INHALATION ×2 (12:30→20:57)
[2022-05-12] MEDS: FUROSEMIDE INJ 40 MG/4 ML VIAL IV PUSH (12:55)
[2022-05-13] VITALS (16 sets, daily range): BP systolic 101–118; BP diastolic 46–80; PULSE 80–101; RESP 16–22; TEMP 36.6–36.7; O2SAT 90–95
--- NOTE | 2022-05-13 00:41 | PM.EVENT ---
Event Note Event Note Event Note: Patient became unresponsive on the commode and staff called rapid around 0038. I arrived at the scene immediately afterwards. She was brought back to the bed and appears to back to baseline. her vitals stable, and patient is answering questions appropriately. Will continue to monitor patient with telemetry. She likely had a vagal episode while on the commode. Continue supportive care, no new meds, will keep patient in the same room. orders: initiate telemetry
[2022-05-13 00:44] LABS: Glucose Point of Care 113 mg/dl (65-105)
[2022-05-13 04:55] LABS: Basophils Percent Auto 0.2 % (0.2-1.2); Eosinophils Absolute Auto 0.1 K/mm3 (0-0.3); Eosinophils Percent Auto 0.8 % (0-4.4); Hematocrit 36.8 % (37.0-47.0); Hemoglobin 11.7 g/dL (12.0-15.0); Immature Granulocyte Percent A 2.7 % (0-0.5); Lymphocytes Absolute Auto 1.34 K/mm3 (0.9-3.2); Mean Corpuscular HGB Conc 31.8 g/dl (32-36); Mean Corpuscular Hemoglobin 29.5 pg (26-34); Mean Corpuscular Volume 92.7 fl (80-100); Mean Platelet Volume 10.9 fl (7.4-10.4); Monocytes Absolute Auto 1.3 K/mm3 (0.1-0.6); Monocytes Percent Auto 8.9 % (2.6-8.5); Neutrophils Absolute Auto 11.7 K/mm3 (1.3-6.7); Neutrophils Percent Auto 78.4 % (45.5-73.1); Platelet Count Result 246 k/mm3 (150-375); Red Blood Count 3.97 M/mm3 (4.2-5.4); Red Cell Distribution Width 15.1 % (11.5-14.5); White Blood Count 14.9 K/mm3 (4.5-10.0)
[2022-05-13 05:01] LABS: Alanine Aminotransferase 32 U/L (6-35); Albumin Level 3.6 g/dL (3.5-5.1); Alkaline Phosphatase 93 U/L (38-126); Anion Gap 5 mmol/L (8-16); Aspartate Amino Transferase 39 U/L (14-36); Bilirubin,Total 0.6 mg/dL (0.2-1.3); Blood Urea Nitrogen 18 mg/dL (7-17); Calcium 8.2 mg/dL (8.4-10.2); Carbon Dioxide 29 mmol/L (22-30); Chloride 101 mmol/L (98-107); Estimated CRCL calculation 40 ml/min; Estimated Glomerular Filt Rate > 60; Glucose 112 mg/dL (65-110); Magnesium 2.4 mg/dL (1.6-2.3); Sodium 135 mmol/L (137-145)
[2022-05-13] MEDS: ACETAMINOPHEN 325 MG TABLET 650 MG PO (06:17)
[2022-05-13] MEDS: BENZOCAINE/MENTHOL (*BKC) 18 EA LOZENGE 1 LOZENGE PO ×2 (06:18→09:41)
[2022-05-13] MEDS: DOCUSATE SODIUM 100 MG CAPSULE PO ×2 (09:41→21:55)
[2022-05-13] MEDS: dilTIAZem HCL CD 180 MG CAP.ER.24H PO (09:41)
[2022-05-13] MEDS: ROSUVASTATIN 10 MG TABLET 20 MG PO (09:41)
[2022-05-13] MEDS: LORATADINE 5 MG TABLET PO (09:41)
[2022-05-13] MEDS: polyethylene glycoL 3350 17 GM POWD.PACK PO (09:41)
[2022-05-13] MEDS: CYANOCOBALAMIN 1,000 MCG TABLET 1000 MCG PO (09:41)
[2022-05-13] MEDS: PANTOPRAZOLE 40 MG TABLET PO ×2 (09:42→16:40)
[2022-05-13] MEDS: guaiFENesin 12 HR 600 MG TABCR PO ×2 (09:42→21:55)
[2022-05-13] MEDS: ALBUTEROL SULFATE NEB 2.5 MG/3 ML INH INHALATION ×3 (09:50→21:15)
[2022-05-13] MEDS: IPRATROPIUM BR 0.02% INH SOLN 0.5 MG/2.5 ML VIAL INHALATION ×3 (09:50→21:15)
[2022-05-13] MEDS: DORNASE ALFA INH SOLN 1 MG/ML 2.5 ML AMP 2.5 MG INHALATION ×2 (09:50→21:15)
--- NOTE | 2022-05-13 11:30 | PM.IMPN ---
Progress Note: A&P Assessment and Plan (1) COPD with acute exacerbation: Code(s): J44.1 - Chronic obstructive pulmonary disease with (acute) exacerbation Status: Acute Assessment and Plan: Presented with 1 week of worsening cough, shortness of breath, wheezing with lack of improvement to standard treatment including course of IV steroids and azithromycin Appreciate pulmonology consultation Steroids completed Albuterol and ipratropium nebs q4h while awake ABG completed without evidence of hypercapnia Echocardiogram EF is within normal limits and patient has grade 1 diastolic dysfunction WBC trending down, currently 14.9 Wheezes better today Wet cough noted Sputum culture pending Add Pulmozyme to help loosen secretions, reports this helping (2) Influenza A: Code(s): J10.1 - Influenza due to other identified influenza virus with other respiratory manifestations Status: Acute Assessment and Plan: negative influenza A on admission on 04/29. Recheck on 05/07 is positive. onset of illness is unable to be determined Continue Tamiflu 75 mg q.12 for 5 days supportive care appreciate pulmonology recommendations (3) Pneumonia: Code(s): J18.9 - Pneumonia, unspecified organism Status: Acute Assessment and Plan: repeat CXR on 05/11 showed Airspace opacities in the right mid and lower lung zones, and left lower lung zone consistent with atelectasis vs PNA Received vancomycin and Primaxin for coverage of hospital-acquired pneumonia x4 days. No current antibiotics on board RSV negative, COVID negative extended respiratory pathogen panel continues to pend supportive care (4) Chronic respiratory failure with hypoxia: Code(s): J96.11 - Chronic respiratory failure with hypoxia Status: Chronic Assessment and Plan: Home O2 requirement 1-2 liters nasal cannula 24 hours daily. Currently maintaining adequate O2 sats on 2 L supplemental O2, consistent with home setting Continue supplemental oxygen to maintain sats >90% Overnight oximetry completed on 05/11 on 2 L with only 1 minute of O2 sats <88% Home O2 eval completed reports not feeling safe to return home at this time given continued shortness of breath. Home O2 eval indicated 2 L supplemental O2 at rest and with exertion. Consider repeating home O2 eval if indicated (5) Hyperlipidemia: Qualifiers: Hyperlipidemia type: mixed hyperlipidemia Qualified Code(s): E78.2 - Mixed hyperlipidemia Code(s): E78.5 - Hyperlipidemia, unspecified Status: Chronic Assessment and Plan: Chronic, stable. Continue crestor. (6) Gastroesophageal reflux disease: Qualifiers: Esophagitis presence: esophagitis presence not specified Qualified Code(s): K21.9 - Gastro-esophageal reflux disease without esophagitis Code(s): K21.9 - Gastro-esophageal reflux disease without esophagitis Status: Chronic Assessment and Plan: Chronic, stable. Continue protonix 40 mg BID (7) SVT (supraventricular tachycardia): Code(s): I47.1 - Supraventricular tachycardia Status: Chronic Assessment and Plan: no acute issues Continue diltiazem (8) Syncope: Code(s): R55 - Syncope and collapse Status: Acute Assessment and Plan: Notable syncope while on the commode Tele placed Reported to have only lasted a few seconds Appears to be a vaso-vagal response fall precautions Time Spent With Patient Time with patient: Greater than 35 minutes Subjective Date/time seen: 05/13/22 1130 Interval history: 05/13/22 113 Patient states that she is doing okay today. White count is trending down at this time. Patient stated that she is having some pretty significant chest pain however reproducible with palpation. Patient did have a moment
--- NOTE | 2022-05-13 11:30 | P.PNIM_ITS ---
Progress Note: A&P Assessment and Plan (1) COPD with acute exacerbation: Code(s): J44.1 - Chronic obstructive pulmonary disease with (acute) exacerbation Status: Acute Assessment and Plan: * Presented with 1 week of worsening cough, shortness of breath, wheezing with lack of improvement to standard treatment including course of IV steroids and azithromycin * Appreciate pulmonology consultation * Steroids completed * Albuterol and ipratropium nebs q4h while awake * ABG completed without evidence of hypercapnia * Echocardiogram EF is within normal limits and patient has grade 1 diastolic dysfunction * WBC trending down, currently 14.9 * Wheezes better today * Wet cough noted * Sputum culture pending * Add Pulmozyme to help loosen secretions, reports this helping (2) Influenza A: Code(s): J10.1 - Influenza due to other identified influenza virus with other respiratory manifestations Status: Acute Assessment and Plan: * negative influenza A on admission on 04/29. Recheck on 05/07 is positive. onset of illness is unable to be determined * Continue Tamiflu 75 mg q.12 for 5 days * supportive care * appreciate pulmonology recommendations (3) Pneumonia: Code(s): J18.9 - Pneumonia, unspecified organism Status: Acute Assessment and Plan: * repeat CXR on 05/11 showed Airspace opacities in the right mid and lower lung zones, and left lower lung zone consistent with atelectasis vs PNA * Received vancomycin and Primaxin for coverage of hospital-acquired pneumonia x4 days. * No current antibiotics on board * RSV negative, COVID negative * extended respiratory pathogen panel continues to pend * supportive care (4) Chronic respiratory failure with hypoxia: Code(s): J96.11 - Chronic respiratory failure with hypoxia Status: Chronic Assessment and Plan: * Home O2 requirement 1-2 liters nasal cannula 24 hours daily. * Currently maintaining adequate O2 sats on 2 L supplemental O2, consistent with home setting * Continue supplemental oxygen to maintain sats >90% * Overnight oximetry completed on 05/11 on 2 L with only 1 minute of O2 sats <88% * Home O2 eval completed * reports not feeling safe to return home at this time given continued shortness of breath. * Home O2 eval indicated 2 L supplemental O2 at rest and with exertion. * Consider repeating home O2 eval if indicated (5) Hyperlipidemia: Qualifiers: Hyperlipidemia type: mixed hyperlipidemia Qualified Code(s): E78.2 - Mixed hyperlipidemia Code(s): E78.5 - Hyperlipidemia, unspecified Status: Chronic Assessment and Plan: * Chronic, stable. * Continue crestor. (6) Gastroesophageal reflux disease: Qualifiers: Esophagitis presence: esophagitis presence not specified Qualified Code(s): K21.9 - Gastro-esophageal reflux disease without esophagitis Code(s): K21.9 - Gastro-esophageal reflux disease without esophagitis Status: Chronic Assessment and Plan: * Chronic, stable. * Continue protonix 40 mg BID (7) SVT (supraventricular tachycardia): Code(s): I47.1 - Supraventricular tachycardia Status: Chronic Assessment and Plan: * no acute issues * Continue diltiazem (8) Syncope: Code(s): R55 - Syncope and collapse Status: Acute Assessment and Plan:
[2022-05-13] MEDS: HYDROcodone/acetaminophen (*CRX) 5-325 MG TABLET 1 TAB PO (13:37)
[2022-05-14] VITALS (18 sets, daily range): BP systolic 92–138; BP diastolic 58–91; PULSE 84–100; RESP 16–20; TEMP 37–38.4; O2SAT 90–100
[2022-05-14] MEDS: HYDROcodone/acetaminophen (*CRX) 5-325 MG TABLET 1 TAB PO ×2 (00:23→08:27)
[2022-05-14 05:19] LABS: Basophils Percent Auto 0.2 % (0.2-1.2); Eosinophils Absolute Auto 0.2 K/mm3 (0-0.3); Hematocrit 32.8 % (37.0-47.0); Hemoglobin 10.3 g/dL (12.0-15.0); Immature Granulocyte Absolute 0.15 K/mm3 (0.00-0.031); Immature Granulocyte Percent A 1.8 % (0-0.5); Lymphocytes Absolute Auto 1.04 K/mm3 (0.9-3.2); Lymphocytes Percent Auto 12.3 % (18.3-44.2); Mean Corpuscular HGB Conc 31.4 g/dl (32-36); Mean Corpuscular Hemoglobin 28.6 pg (26-34); Mean Corpuscular Volume 91.1 fl (80-100); Mean Platelet Volume 10.8 fl (7.4-10.4); Monocytes Percent Auto 11.6 % (2.6-8.5); Neutrophils Absolute Auto 6.1 K/mm3 (1.3-6.7); Neutrophils Percent Auto 72.1 % (45.5-73.1); Platelet Count Result 234 k/mm3 (150-375); Red Cell Distribution Width 14.8 % (11.5-14.5); White Blood Count 8.4 K/mm3 (4.5-10.0)
[2022-05-14 05:43] LABS: Alanine Aminotransferase 28 U/L (6-35); Albumin Level 3.3 g/dL (3.5-5.1); Alkaline Phosphatase 83 U/L (38-126); Anion Gap 5 mmol/L (8-16); Aspartate Amino Transferase 30 U/L (14-36); Bilirubin,Total 0.4 mg/dL (0.2-1.3); Blood Urea Nitrogen 17 mg/dL (7-17); Calcium 7.9 mg/dL (8.4-10.2); Carbon Dioxide 28 mmol/L (22-30); Chloride 101 mmol/L (98-107); Estimated CRCL calculation 45 ml/min; Estimated Glomerular Filt Rate > 60; Glucose 151 mg/dL (65-110); Magnesium 2.4 mg/dL (1.6-2.3); Potassium 3.9 mmol/L (3.4-5.0); Sodium 134 mmol/L (137-145)
--- NOTE | 2022-05-14 06:53 | P.PNIM_ITS ---
Progress Note: A&P Assessment and Plan (1) Syncope: Code(s): R55 - Syncope and collapse Status: Acute Assessment and Plan: * Notable syncope while on the commode * Tele placed * Reported to have only lasted a few seconds * Appears to be a vaso-vagal response * Carotid doppler ordered * Echo EF is 65-70% with grade 1 diastolic dysfunction * fall precautions (2) COPD with acute exacerbation: Code(s): J44.1 - Chronic obstructive pulmonary disease with (acute) exacerbation Status: Acute Assessment and Plan: * Presented with 1 week of worsening cough, shortness of breath, wheezing with lack of improvement to standard treatment including course of IV steroids and azithromycin * Appreciate pulmonology consultation * Steroids completed * Albuterol and ipratropium nebs q4h while awake * ABG completed without evidence of hypercapnia * Echocardiogram EF is within normal limits and patient has grade 1 diastolic dysfunction * WBC trending down, currently 8.4 * Wheezes better today * Wet cough noted * Sputum culture pending * Add Pulmozyme to help loosen secretions, reports this helping (3) Influenza A: Code(s): J10.1 - Influenza due to other identified influenza virus with other respiratory manifestations Status: Acute Assessment and Plan: * negative influenza A on admission on 04/29. Recheck on 05/07 is positive. onset of illness is unable to be determined * Continue Tamiflu 75 mg q.12 for 5 days * supportive care * appreciate pulmonology recommendations (4) Pneumonia: Code(s): J18.9 - Pneumonia, unspecified organism Status: Acute Assessment and Plan: * repeat CXR on 05/11 showed Airspace opacities in the right mid and lower lung zones, and left lower lung zone consistent with atelectasis vs PNA * Received vancomycin and Primaxin for coverage of hospital-acquired pneumonia x4 days. * No current antibiotics on board * RSV negative, COVID negative * extended respiratory pathogen panel continues to pend * supportive care (5) Chronic respiratory failure with hypoxia: Code(s): J96.11 - Chronic respiratory failure with hypoxia Status: Chronic Assessment and Plan: * Home O2 requirement 1-2 liters nasal cannula 24 hours daily. * Currently maintaining adequate O2 sats on 2 L supplemental O2, consistent with home setting * Continue supplemental oxygen to maintain sats >90% * Overnight oximetry completed on 05/11 on 2 L with only 1 minute of O2 sats <88% * Home O2 eval completed * reports not feeling safe to return home at this time given continued shortness of breath. * Home O2 eval indicated 2 L supplemental O2 at rest and with exertion. * Consider repeating home O2 eval if indicated (6) Hyperlipidemia: Qualifiers: Hyperlipidemia type: mixed hyperlipidemia Qualified Code(s): E78.2 - Mixed hyperlipidemia Code(s): E78.5 - Hyperlipidemia, unspecified Status: Chronic Assessment and Plan: * Chronic, stable. * Continue crestor. (7) Gastroesophageal reflux disease: Qualifiers: Esophagitis presence: esophagitis presence not specified Qualified Code(s): K21.9 - Gastro-esophageal reflux disease without esophagitis Code(s): K21.9 - Gastro-esophageal reflux disease without esophagitis Status: Chronic Assessment and Pl
--- NOTE | 2022-05-14 06:53 | PM.IMPN ---
Progress Note: A&P Assessment and Plan (1) Syncope: Code(s): R55 - Syncope and collapse Status: Acute Assessment and Plan: Notable syncope while on the commode Tele placed Reported to have only lasted a few seconds Appears to be a vaso-vagal response Carotid doppler ordered Echo EF is 65-70% with grade 1 diastolic dysfunction fall precautions (2) COPD with acute exacerbation: Code(s): J44.1 - Chronic obstructive pulmonary disease with (acute) exacerbation Status: Acute Assessment and Plan: Presented with 1 week of worsening cough, shortness of breath, wheezing with lack of improvement to standard treatment including course of IV steroids and azithromycin Appreciate pulmonology consultation Steroids completed Albuterol and ipratropium nebs q4h while awake ABG completed without evidence of hypercapnia Echocardiogram EF is within normal limits and patient has grade 1 diastolic dysfunction WBC trending down, currently 8.4 Wheezes better today Wet cough noted Sputum culture pending Add Pulmozyme to help loosen secretions, reports this helping (3) Influenza A: Code(s): J10.1 - Influenza due to other identified influenza virus with other respiratory manifestations Status: Acute Assessment and Plan: negative influenza A on admission on 04/29. Recheck on 05/07 is positive. onset of illness is unable to be determined Continue Tamiflu 75 mg q.12 for 5 days supportive care appreciate pulmonology recommendations (4) Pneumonia: Code(s): J18.9 - Pneumonia, unspecified organism Status: Acute Assessment and Plan: repeat CXR on 05/11 showed Airspace opacities in the right mid and lower lung zones, and left lower lung zone consistent with atelectasis vs PNA Received vancomycin and Primaxin for coverage of hospital-acquired pneumonia x4 days. No current antibiotics on board RSV negative, COVID negative extended respiratory pathogen panel continues to pend supportive care (5) Chronic respiratory failure with hypoxia: Code(s): J96.11 - Chronic respiratory failure with hypoxia Status: Chronic Assessment and Plan: Home O2 requirement 1-2 liters nasal cannula 24 hours daily. Currently maintaining adequate O2 sats on 2 L supplemental O2, consistent with home setting Continue supplemental oxygen to maintain sats >90% Overnight oximetry completed on 05/11 on 2 L with only 1 minute of O2 sats <88% Home O2 eval completed reports not feeling safe to return home at this time given continued shortness of breath. Home O2 eval indicated 2 L supplemental O2 at rest and with exertion. Consider repeating home O2 eval if indicated (6) Hyperlipidemia: Qualifiers: Hyperlipidemia type: mixed hyperlipidemia Qualified Code(s): E78.2 - Mixed hyperlipidemia Code(s): E78.5 - Hyperlipidemia, unspecified Status: Chronic Assessment and Plan: Chronic, stable. Continue crestor. (7) Gastroesophageal reflux disease: Qualifiers: Esophagitis presence: esophagitis presence not specified Qualified Code(s): K21.9 - Gastro-esophageal reflux disease without esophagitis Code(s): K21.9 - Gastro-esophageal reflux disease without esophagitis Status: Chronic Assessment and Plan: Chronic, stable. Continue protonix 40 mg BID (8) SVT (supraventricular tachycardia): Code(s): I47.1 - Supraventricular tachycardia Status: Chronic Assessment and Plan: no acute issues Continue diltiazem Subjective Date/time seen: 05/14/22 06:53 Interval history: 05/14/22 05/13/22 1130 Patient states that she is doing okay today. White count is trending down at this time. Patient stated that she is having some pretty significant chest pain however reproducible with palpatio
[2022-05-14] MEDS: DORNASE ALFA INH SOLN 1 MG/ML 2.5 ML AMP 2.5 MG INHALATION (07:59)
[2022-05-14] MEDS: IPRATROPIUM BR 0.02% INH SOLN 0.5 MG/2.5 ML VIAL INHALATION ×3 (07:59→15:27)
[2022-05-14] MEDS: ALBUTEROL SULFATE NEB 2.5 MG/3 ML INH INHALATION ×3 (07:59→15:27)
--- NOTE | 2022-05-14 08:15 | P.DS_ITS ---
DS: Admitting Diagnosis Discharge Date 05/14/22 0815 Admitting Diagnosis COPD Exacerbation, Flu A, PNA DS: Discharge Diagnosis Discharge Diagnosis (1) Syncope: Code(s): R55 - Syncope and collapse Status: Acute Assessment and Plan: * Notable syncope while on the commode * Tele placed * Reported to have only lasted a few seconds * Appears to be a vaso-vagal response * Echo EF is 65-70% with grade 1 diastolic dysfunction * fall precautions (2) COPD with acute exacerbation: Code(s): J44.1 - Chronic obstructive pulmonary disease with (acute) exacerbation Status: Acute Assessment and Plan: * Presented with 1 week of worsening cough, shortness of breath, wheezing with lack of improvement to standard treatment including course of IV steroids and azithromycin * Appreciate pulmonology consultation * Steroids completed * Albuterol and ipratropium nebs q4h while awake * ABG completed without evidence of hypercapnia * Echocardiogram EF is within normal limits and patient has grade 1 diastolic dysfunction * WBC trending down, currently 8.4 * Wheezes better today * Wet cough noted * Sputum culture pending * Add Pulmozyme to help loosen secretions, reports this helping (3) Influenza A: Code(s): J10.1 - Influenza due to other identified influenza virus with other respiratory manifestations Status: Acute Assessment and Plan: * negative influenza A on admission on 04/29. Recheck on 05/07 is positive. onset of illness is unable to be determined * Continue Tamiflu 75 mg q.12 for 5 days * supportive care * appreciate pulmonology recommendations (4) Pneumonia: Code(s): J18.9 - Pneumonia, unspecified organism Status: Acute Assessment and Plan: * repeat CXR on 05/11 showed Airspace opacities in the right mid and lower lung zones, and left lower lung zone consistent with atelectasis vs PNA * Received vancomycin and Primaxin for coverage of hospital-acquired pneumonia x4 days. * No current antibiotics on board * RSV negative, COVID negative * extended respiratory pathogen panel continues to pend * supportive care (5) Chronic respiratory failure with hypoxia: Code(s): J96.11 - Chronic respiratory failure with hypoxia Status: Chronic Assessment and Plan: * Home O2 requirement 1-2 liters nasal cannula 24 hours daily. * Currently maintaining adequate O2 sats on 2 L supplemental O2, consistent with home setting * Continue supplemental oxygen to maintain sats >90% * Overnight oximetry completed on 05/11 on 2 L with only 1 minute of O2 sats <88% * Home O2 eval completed * reports not feeling safe to return home at this time given continued shortness of breath. * Home O2 eval indicated 2 L supplemental O2 at rest and with exertion. * Consider repeating home O2 eval if indicated (6) Hyperlipidemia: Qualifiers: Hyperlipidemia type: mixed hyperlipidemia Qualified Code(s): E78.2 - Mixed hyperlipidemia Code(s): E78.5 - Hyperlipidemia, unspecified Status: Chronic Assessment and Plan: * Chronic, stable. * Continue crestor. (7) Gastroesophageal reflux disease: Qualifiers: Esophagitis presence: esophagitis presence not specified Qualified Code(s): K21.9 - Gastro-esophageal reflux disease without esophagitis Code(s): K21.9 -
--- NOTE | 2022-05-14 08:15 | PM.DS ---
DS: Admitting Diagnosis Discharge Date 05/14/22 0815 Admitting Diagnosis COPD Exacerbation, Flu A, PNA DS: Discharge Diagnosis Discharge Diagnosis (1) Syncope: Code(s): R55 - Syncope and collapse Status: Acute Assessment and Plan: Notable syncope while on the commode Tele placed Reported to have only lasted a few seconds Appears to be a vaso-vagal response Echo EF is 65-70% with grade 1 diastolic dysfunction fall precautions (2) COPD with acute exacerbation: Code(s): J44.1 - Chronic obstructive pulmonary disease with (acute) exacerbation Status: Acute Assessment and Plan: Presented with 1 week of worsening cough, shortness of breath, wheezing with lack of improvement to standard treatment including course of IV steroids and azithromycin Appreciate pulmonology consultation Steroids completed Albuterol and ipratropium nebs q4h while awake ABG completed without evidence of hypercapnia Echocardiogram EF is within normal limits and patient has grade 1 diastolic dysfunction WBC trending down, currently 8.4 Wheezes better today Wet cough noted Sputum culture pending Add Pulmozyme to help loosen secretions, reports this helping (3) Influenza A: Code(s): J10.1 - Influenza due to other identified influenza virus with other respiratory manifestations Status: Acute Assessment and Plan: negative influenza A on admission on 04/29. Recheck on 05/07 is positive. onset of illness is unable to be determined Continue Tamiflu 75 mg q.12 for 5 days supportive care appreciate pulmonology recommendations (4) Pneumonia: Code(s): J18.9 - Pneumonia, unspecified organism Status: Acute Assessment and Plan: repeat CXR on 05/11 showed Airspace opacities in the right mid and lower lung zones, and left lower lung zone consistent with atelectasis vs PNA Received vancomycin and Primaxin for coverage of hospital-acquired pneumonia x4 days. No current antibiotics on board RSV negative, COVID negative extended respiratory pathogen panel continues to pend supportive care (5) Chronic respiratory failure with hypoxia: Code(s): J96.11 - Chronic respiratory failure with hypoxia Status: Chronic Assessment and Plan: Home O2 requirement 1-2 liters nasal cannula 24 hours daily. Currently maintaining adequate O2 sats on 2 L supplemental O2, consistent with home setting Continue supplemental oxygen to maintain sats >90% Overnight oximetry completed on 05/11 on 2 L with only 1 minute of O2 sats <88% Home O2 eval completed reports not feeling safe to return home at this time given continued shortness of breath. Home O2 eval indicated 2 L supplemental O2 at rest and with exertion. Consider repeating home O2 eval if indicated (6) Hyperlipidemia: Qualifiers: Hyperlipidemia type: mixed hyperlipidemia Qualified Code(s): E78.2 - Mixed hyperlipidemia Code(s): E78.5 - Hyperlipidemia, unspecified Status: Chronic Assessment and Plan: Chronic, stable. Continue crestor. (7) Gastroesophageal reflux disease: Qualifiers: Esophagitis presence: esophagitis presence not specified Qualified Code(s): K21.9 - Gastro-esophageal reflux disease without esophagitis Code(s): K21.9 - Gastro-esophageal reflux disease without esophagitis Status: Chronic Assessment and Plan: Chronic, stable. Continue protonix 40 mg BID (8) SVT (supraventricular tachycardia): Code(s): I47.1 - Supraventricular tachycardia Status: Chronic Assessment and Plan: no acute issues Continue diltiazem DS: Summary Hospital Course Hospital Course: patient is 77-year-old female with a past medical history of COPD, chronic respiratory failure on home O2, CAD, [place] who presented to the ED with complaints
[2022-05-14] MEDS: guaiFENesin 12 HR 600 MG TABCR PO (08:27)
[2022-05-14] MEDS: ROSUVASTATIN 10 MG TABLET 20 MG PO (08:27)
[2022-05-14] MEDS: DOCUSATE SODIUM 100 MG CAPSULE PO (08:27)
[2022-05-14] MEDS: LORATADINE 5 MG TABLET PO (08:27)
[2022-05-14] MEDS: CYANOCOBALAMIN 1,000 MCG TABLET 1000 MCG PO (08:27)
[2022-05-14] MEDS: PANTOPRAZOLE 40 MG TABLET PO ×2 (08:27→16:28)
[2022-05-14] MEDS: polyethylene glycoL 3350 17 GM POWD.PACK PO (08:27)
[2022-05-14] MEDS: dilTIAZem HCL CD 180 MG CAP.ER.24H PO (08:28)
--- NOTE | 2022-05-14 13:35 | PCPTNOTE ---
Attempted to see patient for PT, however patient declined. Patient reported she has been sitting up in chair for a while and been walking around in room with nursing, and reports she feels she can not do therapy at this time.
[2022-05-14] MEDS: ACETAMINOPHEN 325 MG TABLET 650 MG PO (16:28)
== END 2022-05-14 18:26 | disposition home health service (06) | DRG 194 ==
LOC: ANHED 12:35 → ANH2MED 18:52
PROVIDERS: Emergency Medicine; Internal Medicine Pulmonary Disease; Nurse Practitioner Family; Physician Assistant; Admitting Provider Internal Medicine; Emergency Provider Emergency Medicine; PCP Physician Assistant; Visit Provider Nurse Practitioner
DX: J10.00 Influenza due to other identified influenza virus with unspecified type of pneumonia (principal); I47.1 Supraventricular tachycardia; J96.11 Chronic respiratory failure with hypoxia; J18.9 Pneumonia, unspecified organism; Y95 Nosocomial condition; J43.9 Emphysema, unspecified; R55 Syncope and collapse; R19.5 Other fecal abnormalities; R07.89 Other chest pain; I25.10 Atherosclerotic heart disease of native coronary artery without angina pectoris; E78.2 Mixed hyperlipidemia; K21.9 Gastro-esophageal reflux disease without esophagitis; K57.30 Diverticulosis of large intestine without perforation or abscess without bleeding; Z20.822 Contact with and (suspected) exposure to COVID-19; Z79.899 Other long term (current) drug therapy; Z87.891 Personal history of nicotine dependence; Z99.81 Dependence on supplemental oxygen
CPT/HCPCS: 36415; 36600; 71045; 71046; 71275; 80048; 80053; 80202; 82274; 82565; 82805; 82948; 83735; 83880; 84484; 85014; 85018; 85025; 85027; 87070; 87106; 87205; 87636; 87637; 93005; 93306; 94618; 94640; 94667; 94668; 94669; 96361; 96365; 96372; 96375; 96376; 97110; 97161; 97165; 97530; 99285; A9270; G0378; J0131; J0456; J0696; J0743; J1650; J1940; J2920; J2930; J3370; J7030; Q9967

== ENCOUNTER 2022-05-14 23:19 | Emergency (ER) | payer MEDICARE, SELFPAY ==
--- NOTE | ~2022-05-14 | XR_ITS ---
EXAMINATION: XR chest 1V portable DATE: 05/15/2022 00:46 INDICATION: Chest pain. TECHNIQUE: A single frontal view of the chest was obtained. COMPARISON: Chest single view 05/14/2022, chest CT 04/30/2022 FINDINGS: There are lucencies in the lungs, consistent with emphysema. There are mild airspace opacit ies in right mid and lower lung zones and left lower lung zone. No pleural effusion or pneumothorax. The heart size is normal. IMPRESSION: 1. Severe emphysema. 2. Stable mild airspace opacities in right mid and lower lung zones and left lower lung zone, consist ent with atelectasis versus pneumonia. Reviewed, dictated and finalized at location A. TECHNICIAN IMPRESSION: 1. Severe emphysema. 2. Stable mild airspace opacities in right mid and lower lung zones and left lo wer lung zone, consistent with atelectasis versus pneumonia.
[2022-05-14 23:18] VITALS: BP 108/73; PULSE 86; RESP 20; TEMP 36.4; O2SAT 92
[2022-05-14 23:20] VITALS: O2SAT 96
--- NOTE | 2022-05-14 23:25 | ECG_ITS ---
Measurements Intervals [place] Rate: 84 P: 56 SD: 160 QRS: -32 QRSD: 67 T: 40 QT: 365 QTc: 433 Interpretive Statements SINUS RHYTHM LEFT AXIS DEVIATION DELAYED PRECORDIAL R/S TRANSITION LOW QRS VOLTAGE IN PRECORDIAL LEADS INFERIOR INFARCT, AGE INDETERMINATE BASELINE ARTIFACT- I, III, AVL, V4-V6 ABNORMAL ECG COMPARED TO ECG 04/29/2022 11:18:11 SINUS RHYTHM NOW PRESENT INFERIOR INFARCT, AGE INDETERMINATE NOW PRESENT Electronically Signed On 05-15-2022 6:16:52 DIRECTOR OF EPIDEMIOLOGY by Wilton Torrez D.O.
[2022-05-14 23:49] LABS: Basophils Percent Auto 0.3 % (0.2-1.2); Eosinophils Absolute Auto 0.1 K/mm3 (0-0.3); Eosinophils Percent Auto 1.8 % (0-4.4); Hematocrit 33.8 % (37.0-47.0); Hemoglobin 10.7 g/dL (12.0-15.0); Immature Granulocyte Percent A 1.5 % (0-0.5); Lymphocytes Absolute Auto 1.13 K/mm3 (0.9-3.2); Lymphocytes Percent Auto 16.8 % (18.3-44.2); Mean Corpuscular HGB Conc 31.7 g/dl (32-36); Mean Corpuscular Hemoglobin 29.7 pg (26-34); Mean Corpuscular Volume 93.9 fl (80-100); Mean Platelet Volume 10.6 fl (7.4-10.4); Monocytes Absolute Auto 0.9 K/mm3 (0.1-0.6); Neutrophils Absolute Auto 4.5 K/mm3 (1.3-6.7); Neutrophils Percent Auto 66.6 % (45.5-73.1); Platelet Count Result 223 k/mm3 (150-375); Red Cell Distribution Width 15.1 % (11.5-14.5); White Blood Count 6.7 K/mm3 (4.5-10.0)
[2022-05-15] MEDS: IPRATROPIUM BR 0.02% INH SOLN 0.5 MG/2.5 ML VIAL 1 MG INHALATION (00:03)
[2022-05-15] MEDS: ALBUTEROL SULFATE NEB 2.5 MG/3 ML INH 15 MG INHALATION (00:03)
[2022-05-15 00:04] VITALS: O2SAT 93
[2022-05-15 00:05] VITALS: PULSE 82; RESP 21
[2022-05-15 00:08] LABS: Sodium 135 mmol/L (137-145)
[2022-05-15 00:11] LABS: Anion Gap 8 mmol/L (8-16); Blood Urea Nitrogen 19 mg/dL (7-17); Calcium 8.1 mg/dL (8.4-10.2); Carbon Dioxide 27 mmol/L (22-30); Chloride 100 mmol/L (98-107); Estimated Glomerular Filt Rate > 60; Glucose 97 mg/dL (65-110); Potassium 4.3 mmol/L (3.4-5.0)
[2022-05-15 00:21] LABS: Troponin I < 0.012 ng/mL (0.000-0.034)
[2022-05-15 00:41] VITALS: BP 100/66; PULSE 95; RESP 26; O2SAT 97
[2022-05-15 01:05] VITALS: PULSE 98; RESP 25
--- NOTE | 2022-05-15 01:38 | ED.CHESTPAIN ---
HPI - Chest Pain General Chief Complaint: Chest Pain Stated Complaint: INTERMITTENT CHEST PAIN Time Seen by Provider: 05/14/22 23:21 History of Present Illness HPI narrative: patient with h/o COPD p/w intermittent chest tightness and shortness of breath while at home; each episode lasts only a few seconds, asked family at bedside to call for EMS. She had just been discharged from the hospital today, having recently been diagnosed with flu, and the family was worried because patient would be out of breath walking about 5 feet. Related Data Home Medications Medication Instructions Recorded Confirmed diltiazem HCl 180 mg 180 mg PO DAILY 06/20/21 04/29/22 capsule,extended release 24 hr (Cardizem CD) Allergies Allergy/AdvReac Type Severity Reaction Status Date / Time No Known Allergies Allergy Verified 05/14/22 23:43 Review of Systems Review of Systems: CONST: Chills HEENT: No sore throat C/V: Episodes of chest tightness RESP: Shortness of breath GI: No nausea or vomiting : No dysuria. M/S: No joint pain. SKIN: No rash. NEURO: [No headache or focal numbness or weakness] PSYCH: [No depression] [facility] Past Medical History Medical History Abnormal nuclear stress test (03/2022) Cardiac catheterization on 04/02/2022 showed preserved left ventricular systolic function with minimal atherosclerosis of the proximal LAD and the proximal and mid RCA. Chronic respiratory failure with hypoxia, on home oxygen therapy COPD with emphysema Coronary artery calcification Calcifications noted on chest CT in October 2019. Echocardiogram showed normal left ventricular systolic function with an ejection fraction of 65 to 70% as well as grade 1 diastolic dysfunction. Gastroesophageal reflux disease History of tobacco abuse 45 pack year smoking history, quit in October 2019. Lumbar compression fracture SAGRARIO (obstructive sleep apnea) Osteopenia Supraventricular tachycardia Surgical History Surgical History History of bladder suspension procedure History of breast augmentation History of cardiac catheterization (03/2022) History of partial hysterectomy Family History Family History Mother Family history of heart disease in male family member before age 55 Cerebrovascular accident Heart attack Sibling Family history of heart disease in male family member before age 55 Heart attack Cerebrovascular accident Transitional cell carcinoma Father Cerebrovascular accident Social History Social History Social History: Surrogate decision maker: Nancy Keith, granddaughter. Code status: Full code. Smoking packs per day: 1 Smoking cigarettes per day: 20.0 Years smoked: 63 Smoking pack-years: 63.00 Smoking status: Former smoker Tobacco type: cigarettes Second hand tobacco smoke exposure: Yes Smoking end date: 06/24/19 Additional smoking assessment comments: Smoked .75 packs per day but up to 1.5 - 2 packs per day for over a year. Alcohol intake: never Substance use: never Substance use type: does not use Lack of Transportation: No Lack of Food: Never True Current Housing: I Have Housing Concerned About Future Housing: No Difficulty Paying Gas/Electric Bills: No Difficulty Paying for Meds: No Currently Unemployed: No Education: High School Diploma/GED Difficulty w/ Childcare or Family Care: No Additional living arrangements comments: Son Valentino lives 1 house away. Additional occupation/education comments: Worked 40 years [employer], , raised 8 children on her own. Spiritual care concerns: No Exam Narrative: EXAMINATION OF ORGAN SYSTEMS/BODY AREAS: Constitutional: Vital signs per nursing GENERAL: Appears somewhat anxious HEAD: Normal with no signs of head trauma. EYES: EOM
[2022-05-15 01:45] VITALS: BP 96/65; PULSE 96; RESP 16; O2SAT 100
== END 2022-05-15 02:35 | disposition home or self-care (01) ==
PROVIDERS: Emergency Provider Emergency Medicine; PCP Physician Assistant
DX: J43.9 Emphysema, unspecified (principal); R07.89 Other chest pain; J96.11 Chronic respiratory failure with hypoxia; I25.10 Atherosclerotic heart disease of native coronary artery without angina pectoris; K21.9 Gastro-esophageal reflux disease without esophagitis; M85.80 Other specified disorders of bone density and structure, unspecified site; G47.33 Obstructive sleep apnea (adult) (pediatric); Z99.81 Dependence on supplemental oxygen; Z90.711 Acquired absence of uterus with remaining cervical stump; Z87.891 Personal history of nicotine dependence; R94.31 Abnormal electrocardiogram [ECG] [EKG]
CPT/HCPCS: 36415; 71045; 80048; 84484; 85025; 93005; 94640; 99284

== ENCOUNTER 2022-05-21 13:43 | Inpatient (IN) | payer MEDICARE, SELFPAY ==
[2022-05-21] VITALS (14 sets, daily range): BP systolic 93–140; BP diastolic 56–71; PULSE 77–121; RESP 17–31; TEMP 37.3–38.3; O2SAT 92–97; BMI 20.8
--- NOTE | ~2022-05-21 | XR_ITS ---
EXAMINATION: XR chest 1V portable Exam Date/Time: 05/21/2022 14:10 QUANTITATIVE RESEARCHER HISTORY: fever, SOB Comparison: 05/15/2022. RESULT: Lines, tubes, and devices: None. Lungs and pleura: Dense, segmental or multisegmental left basilar airspace disease and minimal left lateral costophrenic angle blunting. Subsegmental right lateral basal opacity. Generalized senescent/ interstitial change. Cardiomediastinal silhouette: Stable. Other: No acute osseous or upper abdominal finding. IMPRESSION: Left basilar airspace disease may reflect the consolidation of pneumonia in the appropriate cortical context. Possible small left pleural effusion. Presumed right basilar atelectasis. Reviewed, dictated and finalized at location K. TITATIVE RESEARCHER IMPRESSION: Left basilar airspace disease may reflect the consolidation of pneumonia in the appropriate cortical context. Possible small left pleural effusion. Presumed r ight basilar atelectasis.
--- NOTE | 2022-05-21 13:49 | ECG_ITS ---
Measurements Intervals [place] Rate: 119 P: 16 [place]: 128 QRS: -42 QRSD: 72 T: 32 QT: 338 QTc: 476 Interpretive Statements SINUS TACHYCARDIA DELAYED PRECORDIAL R/S TRANSITION LOW QRS VOLTAGE IN PRECORDIAL LEADS INFERIOR INFARCT, AGE INDETERMINATE BASELINE ARTIFACT- I, II, III, V6 ABNORMAL ECG COMPARED TO ECG 05/14/2022 23:38:53 SINUS TACHYCARDIA NOW PRESENT Electronically Signed On 05-21-2022 17:39:54 STEM PROCESSING MACHINE OPERATOR by Wilton Torrez D.O.
--- NOTE | 2022-05-21 13:53 | ED.SOB ---
HPI - SOB/Dyspnea General Chief Complaint: Shortness of Breath/Dyspnea Stated Complaint: SOB, decreased PO intake Time Seen by Provider: 05/21/22 13:53 Source: patient Mode of arrival: EMS Limitations: no limitations History of Present Illness HPI Narrative: The patient is a 77-year-old female with a past medical history of COPD, chronic respiratory failure on 1-2L home O2, CAD, SAGRARIO presenting to the ER for evaluation of cough, weakness. Patient states that she has felt unwell over the past 36 hours. Apparently, patient had a good day Saturday per family, had a normal Thanksgiving, was up, eating, drinking, acting normally. Yesterday, they noticed the patient to have increased weakness and lethargy with decreased appetite and no oral intake yesterday 05/20. Thus, ambulance was called today to bring the patient to the hospital. They deny any recent sick contacts. Patient denies any abdominal pain. She reports mild cough. She reports feeling diffusely weak. Patient chart reviewed, pt has had home health after recent admission for Influenza and COPD exacerbation. Pt treated for this and discharged home with home health. Pt with recent ED visit 05/15 which was reassuring and notable for mild COPD exacerbation. Patient reports she is DNR/DNI. Related Data Home Medications Medication Instructions Recorded Confirmed diltiazem HCl 180 mg 180 mg PO DAILY 06/20/21 04/29/22 capsule,extended release 24 hr (Cardizem CD) Allergies Allergy/AdvReac Type Severity Reaction Status Date / Time No Known Allergies Allergy Verified 05/21/22 13:51 Review of Systems Review of Systems: CONSTITUTIONAL: Denies fever, chills, or sweats. EYES: Denies visual changes, redness, or discharge. ENT: Denies rhinorrhea, congestion, sore throat, or otalgia. CARDIOVASCULAR: Reports rib pain, denies palpitations or edema RESPIRATORY: Reports cough and mild shortness of breath GASTROINTESTINAL: Denies abdominal pain, nausea, vomiting, or diarrhea. GENITOURINARY: Denies dysuria or hematuria. SKIN: Denies rash or itching. MUSCULOSKELETAL: Denies back pain, joint pain, or myalgia. NEUROLOGIC: Denies headache, numbness, reports diffuse weakness PMFSH Past Medical History Medical History Abnormal nuclear stress test (03/2022) Cardiac catheterization on 04/02/2022 showed preserved left ventricular systolic function with minimal atherosclerosis of the proximal LAD and the proximal and mid RCA. Chronic respiratory failure with hypoxia, on home oxygen therapy COPD with emphysema Coronary artery calcification Calcifications noted on chest CT in October 2019. Echocardiogram showed normal left ventricular systolic function with an ejection fraction of 65 to 70% as well as grade 1 diastolic dysfunction. Gastroesophageal reflux disease History of tobacco abuse 45 pack year smoking history, quit in October 2019. Lumbar compression fracture SAGRARIO (obstructive sleep apnea) Osteopenia Supraventricular tachycardia Surgical History Surgical History History of bladder suspension procedure History of breast augmentation History of cardiac catheterization (03/2022) History of partial hysterectomy Family History Family History Mother Family history of heart disease in male family member before age 55 Cerebrovascular accident Heart attack Sibling Family history of heart disease in male family member before age 55 Heart attack Cerebrovascular accident Transitional cell carcinoma Father Cerebrovascular accident Social History Social History Social History: Surrogate decision maker: Nancy Keith, granddaughter. Code status: Full code. Smoking packs per day: 1 Smoking cigarettes per day: 20.0 Years smoked: 63 Smoking pack-years:
[2022-05-21 14:16] LABS: Basophils Percent Auto 0.3 % (0.2-1.2); Hematocrit 35.5 % (37.0-47.0); Hemoglobin 11.5 g/dL (12.0-15.0); Immature Granulocyte Absolute 0.16 K/mm3 (0.00-0.031); Lymphocytes Absolute Auto 1.64 K/mm3 (0.9-3.2); Lymphocytes Percent Auto 10.6 % (18.3-44.2); Mean Corpuscular HGB Conc 32.4 g/dl (32-36); Mean Corpuscular Hemoglobin 29.6 pg (26-34); Mean Corpuscular Volume 91.3 fl (80-100); Mean Platelet Volume 10.7 fl (7.4-10.4); Monocytes Percent Auto 6.2 % (2.6-8.5); Neutrophils Absolute Auto 12.6 K/mm3 (1.3-6.7); Neutrophils Percent Auto 81.9 % (45.5-73.1); Platelet Count Result 202 k/mm3 (150-375); Red Blood Count 3.89 M/mm3 (4.2-5.4); Red Cell Distribution Width 15.4 % (11.5-14.5); White Blood Count 15.4 K/mm3 (4.5-10.0)
[2022-05-21 14:26] LABS: INR 1.2; Lactic Acid Reflex 1.2 mmol/L (0.7-2.0); Prothrombin Time 14.7 Seconds (11.1-14.7)
[2022-05-21 14:27] LABS: Partial Thromboplastin Time 31.5 SECONDS (22.3-36.8)
[2022-05-21 14:35] LABS: Alanine Aminotransferase 16 U/L (6-35); Albumin Level 3.9 g/dL (3.5-5.1); Alkaline Phosphatase 93 U/L (38-126); Anion Gap 12 mmol/L (8-16); Aspartate Amino Transferase 25 U/L (14-36); Blood Urea Nitrogen 17 mg/dL (7-17); Calcium 8.6 mg/dL (8.4-10.2); Carbon Dioxide 22 mmol/L (22-30); Chloride 104 mmol/L (98-107); Estimated CRCL calculation 41 ml/min; Estimated Glomerular Filt Rate > 60; Glucose 97 mg/dL (65-110); Lipase 37 U/L (23-300); Potassium 3.9 mmol/L (3.4-5.0); Sodium 138 mmol/L (137-145)
[2022-05-21 14:38] LABS: Troponin I < 0.012 ng/mL (0.000-0.034)
[2022-05-21 14:47] LABS: CRP 20.8 mg/dL (<1.0)
[2022-05-21 14:54] LABS: Influenza A QL RT-PCR Negative (Negative); Influenza B QL RT-PCR Negative (Negative); RSV RNA, RT-PCR Negative (Negative); SARS-CoV-2 RNA PCR Positive
--- NOTE | 2022-05-21 15:00 | PC.NURSE ---
Pt received 1700 MLS NS as ordered per Sepsis protocol. 2 L NS w/ one having 0 volume left in container, one having 300 MLS wasted and 700 mls infused.
[2022-05-21 15:08] LABS: Appearance Urine Slightly Cloudy (Clear); Bilirubin Urine 1+ (Negative); Blood Urine Trace-intact (Negative); Glucose Urine UA Negative (Negative); Ketones Urine 1+ mg/dL (Negative); Leukocyte Esterase Ur Trace LEU/UL (Negative); Nitrate Urine Negative (Negative); Protein Urine 2+ mg/dL (Negative); Specific Grav Ur >= 1.030 (1.001-1.035); Urobilinogen Urine 0.2 mg/dL (<2.0); pH Urine 5.5 (5.0-9.0)
[2022-05-21 15:14] LABS: Add Urine Microscopic? YES; Color Urine Dark Yellow (Yellow)
[2022-05-21 15:16] LABS: Bacteria Urine 4+ /hpf; Mucus Urine Heavy /lpf; Squamous Epithelial Cell Urine Many /hpf (Few); WBC Urine 31-50 /hpf
[2022-05-21 15:28] LABS: NT Pro B Type Natriuretic Pept 776 pg/mL (5-100)
[2022-05-21] MEDS: LACTATED RINGERS 1,000 ML 125 ML IV CONT (15:48)
[2022-05-21 15:49] LABS: Fractional Inspired Oxygen 21 %; PO2 VBG 79.4 mmHg (35.0-45.0); pH VBG 7.435 (7.300-7.400)
[2022-05-21 15:50] LABS: Device ROOM AIR; PCO2 VBG 27.5 mmHg (42.0-48.0)
--- NOTE | 2022-05-21 19:04 | PM.IMHP ---
H&P: HPI History of Present Illness Date/Time: 05/21/22 19:04 Chief Complaint: Shortness of breath Narrative: This is a 77-year-old female patient who has a history of COPD, chronic respiratory failure on oxygen at 1-2 L at home. She also has CAD and SAGRARIO. She came to the emergency room with complaints of feeling unwell for at least 36 hours. Patient had a normal Thanksgiving and was eating and drinking and was feeling normal. Saturday she felt okay and then yesterday she had increased weakness and lethargy she had a decreased appetite and no oral intake since yesterday. Patient's white count was noted to be 15.4. H&H is 11.5 and 35.5 which is her baseline. ABGs pH was 7.435 CO2 was 27.5 PO2 was 79.4. C reactive protein is 20.8. Troponins are negative x2. The patient was found to be positive for COVID. Her urine also appears to be infected. Patient was given Tylenol, IV fluids, cefepime, and Decadron. Chest x-ray was read as left basilar airspace disease may reflect the consolidation of pneumonia in the appropriate cortical contacts. Possible small left pleural effusion. Presumed right basilar atelectasis. Since the patient was just discharged from here on 05/14/2022. The patient was started on healthcare associated antibiotic stewardship. (The patient had influenza a and exacerbation of COPD at that time. She recently received vancomycin and Primaxin that week. She was RSV and COVID negative the week she was here.) The patient is being admitted to inpatient status on the date of service of 05/21/2022. Review of Systems Review of Systems: see hpi All systems reviewed & are unremarkable except as noted in HPI and below Constitutional: Constitutional: Reports as per HPI and Reports no additional constitutional complaints Eyes: Eyes: Reports as per HPI and Reports no additional eye complaints ENT: Reports system reviewed and no additional complaints, except as documented and Reports Normal hearing present Cardiovascular: Cardiovascular: Reports no additional cardiovascular complaints Respiratory: Respiratory: Reports no additional respiratory complaints and Reports no additional respiratory complaints Gastrointestinal: Gastrointestinal: Reports as per HPI and Reports no additional gastrointestinal complaints Musculoskeletal: Musculoskeletal: Reports no additional musculoskeletal complaints Integumentary/Breasts: Skin/Breast: Reports system reviewed and no additional complaints, except as docu and Reports as per HPI Neurologic: Reports system reviewed and no additional complaints, except as documented, Reports as per HPI and Reports Normal hearing present Psychiatric: Psychiatric: Reports no additional psychiatric complaints and Reports as per HPI Endocrine: Endocrine: Reports no additional endocrine complaints Hematologic/Lymphatic: Hematologic/Lymphatic: Reports no additional hematologic/lymphatic complaints Allergic/Immunologic: Allergic/Immunologic: Reports no additional allergic/immunologic complaints [facility] Past Medical History Medical History Abnormal nuclear stress test (03/2022) Cardiac catheterization on 04/02/2022 showed preserved left ventricular systolic function with minimal atherosclerosis of the proximal LAD and the proximal and mid RCA. Chronic respiratory failure with hypoxia, on home oxygen therapy COPD with emphysema Coronary artery calcification Calcifications noted on chest CT in October 2019. Echocardiogram showed normal left ventricular systolic function with an ejection fraction of 65 to 70% as well as grade 1 diastolic dysfunction. Gastroesophageal reflux disease History of tobacco abuse 45 pack year smoking history, quit in October 2019. Lumbar compression fracture SAGRARIO (obstructive sleep apnea) Osteopenia Supraventricular tachycardia Surgical History Surgical History History of bladder susp
--- NOTE | 2022-05-21 21:28 | ADMGEN ---
This patient, Mary Kate Keith, was admitted to IMU Room 202-01 at 2125. Patient/family oriented to hospital policies and general routines including ID bracelet, bed and alarms, visiting hours, pain management, procedures, bathroom and other care routines, personal items, smoking policy, room service/diet, and visiting hours. Information on how to activate the Rapid Response Team has been discussed. Patient/Family are encouraged to report perceived risks to care and to ask questions if they do not understand what they are told or what they should do.
[2022-05-21 22:48] LABS: Basophils Percent Auto 0.1 % (0.2-1.2); Hematocrit 31.1 % (37.0-47.0); Hemoglobin 9.9 g/dL (12.0-15.0); Immature Granulocyte Absolute 0.13 K/mm3 (0.00-0.031); Lymphocytes Absolute Auto 0.82 K/mm3 (0.9-3.2); Lymphocytes Percent Auto 6.2 % (18.3-44.2); Mean Corpuscular HGB Conc 31.8 g/dl (32-36); Mean Corpuscular Hemoglobin 29.4 pg (26-34); Mean Corpuscular Volume 92.3 fl (80-100); Mean Platelet Volume 10.5 fl (7.4-10.4); Monocytes Absolute Auto 0.3 K/mm3 (0.1-0.6); Monocytes Percent Auto 2.5 % (2.6-8.5); Neutrophils Absolute Auto 11.9 K/mm3 (1.3-6.7); Neutrophils Percent Auto 90.2 % (45.5-73.1); Platelet Count Result 179 k/mm3 (150-375); Red Blood Count 3.37 M/mm3 (4.2-5.4); Red Cell Distribution Width 15.3 % (11.5-14.5); White Blood Count 13.2 K/mm3 (4.5-10.0)
[2022-05-21 23:05] LABS: Alanine Aminotransferase 15 U/L (6-35); Aspartate Amino Transferase 26 U/L (14-36); Estimated CRCL calculation 69 ml/min; Estimated Glomerular Filt Rate > 60
[2022-05-21] MEDS: BARICITINIB 2 MG TABLET PO (23:33)
[2022-05-22] VITALS (16 sets, daily range): BP systolic 89–139; BP diastolic 57–75; PULSE 77–98; RESP 16–22; TEMP 36.6–37.2; O2SAT 92–99
[2022-05-22 04:54] LABS: Basophils Percent Auto 0.2 % (0.2-1.2); Hematocrit 32.3 % (37.0-47.0); Hemoglobin 10.2 g/dL (12.0-15.0); Immature Granulocyte Absolute 0.08 K/mm3 (0.00-0.031); Immature Granulocyte Percent A 0.7 % (0-0.5); Lymphocytes Percent Auto 9.8 % (18.3-44.2); Mean Corpuscular HGB Conc 31.6 g/dl (32-36); Mean Corpuscular Hemoglobin 29.4 pg (26-34); Mean Corpuscular Volume 93.1 fl (80-100); Mean Platelet Volume 10.9 fl (7.4-10.4); Monocytes Absolute Auto 0.4 K/mm3 (0.1-0.6); Monocytes Percent Auto 3.5 % (2.6-8.5); Neutrophils Absolute Auto 10.6 K/mm3 (1.3-6.7); Neutrophils Percent Auto 85.8 % (45.5-73.1); Platelet Count Result 199 k/mm3 (150-375); Red Blood Count 3.47 M/mm3 (4.2-5.4); Red Cell Distribution Width 15.3 % (11.5-14.5); White Blood Count 12.3 K/mm3 (4.5-10.0)
[2022-05-22 05:12] LABS: Alanine Aminotransferase 16 U/L (6-35); Aspartate Amino Transferase 21 U/L (14-36); Estimated CRCL calculation 59 ml/min; Estimated Glomerular Filt Rate > 60
[2022-05-22] MEDS: CYANOCOBALAMIN 1,000 MCG TABLET 1000 MCG PO (08:11)
[2022-05-22] MEDS: LORazepam (*CRX) 0.5 MG TABLET PO (08:11)
[2022-05-22] MEDS: LORATADINE 10 MG TABLET PO (08:12)
[2022-05-22] MEDS: ROSUVASTATIN 10 MG TABLET 20 MG PO (08:12)
[2022-05-22] MEDS: guaiFENesin 12 HR 600 MG TABCR PO ×2 (08:12→21:29)
[2022-05-22] MEDS: dilTIAZem HCL CD 180 MG CAP.ER.24H PO (08:12)
[2022-05-22] MEDS: PANTOPRAZOLE 40 MG TABLET PO ×2 (08:12→21:29)
[2022-05-22] MEDS: BUDESONIDE RESPULE NEB 0.5 MG/2 ML AMP INHALATION ×2 (09:38→20:23)
[2022-05-22] MEDS: ENOXAPARIN 40 MG/0.4 ML SYRINGE SUB-Q (10:03)
[2022-05-22] MEDS: BARICITINIB 2 MG TABLET PO (10:03)
--- NOTE | 2022-05-22 11:29 | PM.IMPN ---
Progress Note: A&P Assessment and Plan (1) COVID: Code(s): U07.1 - COVID-19 Status: Acute Assessment and Plan: -the patient typically wears oxygen at 2 L and is now requiring 3 L per nasal cannula. -patient was started on olumiant -supportive care. (2) HABP (hospital-acquired bacterial pneumonia): Code(s): J15.9 - Unspecified bacterial pneumonia Status: Acute Assessment and Plan: -patient was started on healthcare associated pneumonia antibiotic stewardship which includes cefepime and vancomycin. -tailor antibiotics as per culture results. -sputum and blood cultures are pending. -maintain oxygen levels above 90%. (3) COPD with acute exacerbation: Code(s): J44.1 - Chronic obstructive pulmonary disease with (acute) exacerbation Status: Acute Assessment and Plan: -continue with albuterol inhaler (4) Hyperlipidemia: Qualifiers: Hyperlipidemia type: mixed hyperlipidemia Qualified Code(s): E78.2 - Mixed hyperlipidemia Code(s): E78.5 - Hyperlipidemia, unspecified Status: Chronic Assessment and Plan: Continue with rosuvastatin (5) Gastroesophageal reflux disease: Qualifiers: Esophagitis presence: esophagitis presence not specified Qualified Code(s): K21.9 - Gastro-esophageal reflux disease without esophagitis Code(s): K21.9 - Gastro-esophageal reflux disease without esophagitis Status: Chronic Assessment and Plan: -continue with pantoprazole (6) UTI (urinary tract infection): Code(s): N39.0 - Urinary tract infection, site not specified Status: Acute Assessment and Plan: -the patient is already on cefepime and vancomycin. -Nika antibiotics to culture results. (7) SVT (supraventricular tachycardia): Code(s): I47.1 - Supraventricular tachycardia Status: Chronic Assessment and Plan: -continue with Cardizem Subjective Date/time seen: 05/22/22 11:29 breathing better. Review of Systems Review of Systems: see hpi All systems reviewed & are unremarkable except as noted in HPI and below Constitutional: Constitutional: Reports as per HPI and Reports no additional constitutional complaints Eyes: Eyes: Reports as per HPI and Reports no additional eye complaints ENT: Reports system reviewed and no additional complaints, except as documented and Reports Normal hearing present Cardiovascular: Cardiovascular: Reports no additional cardiovascular complaints Respiratory: Respiratory: Reports no additional respiratory complaints and Reports no additional respiratory complaints Gastrointestinal: Gastrointestinal: Reports as per HPI and Reports no additional gastrointestinal complaints Musculoskeletal: Musculoskeletal: Reports no additional musculoskeletal complaints Integumentary/Breasts: Skin/Breast: Reports system reviewed and no additional complaints, except as docu and Reports as per HPI Neurologic: Reports system reviewed and no additional complaints, except as documented, Reports as per HPI and Reports Normal hearing present Psychiatric: Psychiatric: Reports no additional psychiatric complaints and Reports as per HPI Endocrine: Endocrine: Reports no additional endocrine complaints Hematologic/Lymphatic: Hematologic/Lymphatic: Reports no additional hematologic/lymphatic complaints Allergic/Immunologic: Allergic/Immunologic: Reports no additional allergic/immunologic complaints Exam Const: General: cooperative, comfortable, no acute distress, well developed, alert, awake and well nourished Nutritional Appearance: average body habitus and well nourished Orientation/consciousness: oriented to person, oriented to place, oriented to time and patient oriented x3 Limitations: no limitations HENMT: Head: normal to inspection, No palpable skull fracture present, normocephalic and atraumatic Ears: hearing grossly normal bilaterally and external ears normal Face/No
[2022-05-23] VITALS (14 sets, daily range): BP systolic 95–122; BP diastolic 56–71; PULSE 58–86; RESP 16–20; TEMP 36.1–36.9; O2SAT 94–100
[2022-05-23 05:04] LABS: Basophils Percent Auto 0.3 % (0.2-1.2); Eosinophils Absolute Auto 0.1 K/mm3 (0-0.3); Eosinophils Percent Auto 0.4 % (0-4.4); Hematocrit 28.5 % (37.0-47.0); Immature Granulocyte Absolute 0.06 K/mm3 (0.00-0.031); Immature Granulocyte Percent A 0.5 % (0-0.5); Lymphocytes Percent Auto 18.6 % (18.3-44.2); Mean Corpuscular HGB Conc 31.6 g/dl (32-36); Mean Corpuscular Hemoglobin 28.8 pg (26-34); Mean Corpuscular Volume 91.1 fl (80-100); Mean Platelet Volume 11.2 fl (7.4-10.4); Monocytes Absolute Auto 0.6 K/mm3 (0.1-0.6); Monocytes Percent Auto 5.4 % (2.6-8.5); Neutrophils Absolute Auto 8.8 K/mm3 (1.3-6.7); Neutrophils Percent Auto 74.8 % (45.5-73.1); Platelet Count Result 251 k/mm3 (150-375); Red Blood Count 3.13 M/mm3 (4.2-5.4); Red Cell Distribution Width 15.1 % (11.5-14.5); White Blood Count 11.8 K/mm3 (4.5-10.0)
[2022-05-23 05:07] LABS: Alanine Aminotransferase 30 U/L (6-35); Aspartate Amino Transferase 46 U/L (14-36); Estimated CRCL calculation 51 ml/min; Estimated Glomerular Filt Rate > 60
[2022-05-23] MEDS: CYANOCOBALAMIN 1,000 MCG TABLET 1000 MCG PO (08:50)
[2022-05-23] MEDS: BARICITINIB 2 MG TABLET PO (08:50)
[2022-05-23] MEDS: guaiFENesin 12 HR 600 MG TABCR PO ×2 (08:50→22:05)
[2022-05-23] MEDS: ROSUVASTATIN 10 MG TABLET 20 MG PO (08:50)
[2022-05-23] MEDS: ENOXAPARIN 40 MG/0.4 ML SYRINGE SUB-Q (08:50)
[2022-05-23] MEDS: LORATADINE 10 MG TABLET PO (08:50)
[2022-05-23] MEDS: dilTIAZem HCL CD 180 MG CAP.ER.24H PO (08:50)
[2022-05-23] MEDS: PANTOPRAZOLE 40 MG TABLET PO ×2 (08:50→22:05)
[2022-05-23] MEDS: LORazepam (*CRX) 0.5 MG TABLET PO (08:54)
[2022-05-23] MEDS: BUDESONIDE RESPULE NEB 0.5 MG/2 ML AMP INHALATION (09:08)
--- NOTE | 2022-05-23 13:08 | PM.IMPN ---
Progress Note: A&P Assessment and Plan (1) COVID: Code(s): U07.1 - COVID-19 Status: Acute Assessment and Plan: Patient appears to be doing okay. Continue baricitinib. Oxygen as needed. She is currently on O2 3L nasal cannula. Continue supportive care (2) HABP (hospital-acquired bacterial pneumonia): Code(s): J15.9 - Unspecified bacterial pneumonia Status: Acute Assessment and Plan: IV antibiotics (3) COPD with acute exacerbation: Code(s): J44.1 - Chronic obstructive pulmonary disease with (acute) exacerbation Status: Acute Assessment and Plan: continue continue inhaler (4) Hyperlipidemia: Qualifiers: Hyperlipidemia type: mixed hyperlipidemia Qualified Code(s): E78.2 - Mixed hyperlipidemia Code(s): E78.5 - Hyperlipidemia, unspecified Status: Chronic (5) Gastroesophageal reflux disease: Qualifiers: Esophagitis presence: esophagitis presence not specified Qualified Code(s): K21.9 - Gastro-esophageal reflux disease without esophagitis Code(s): K21.9 - Gastro-esophageal reflux disease without esophagitis Status: Chronic (6) UTI (urinary tract infection): Code(s): N39.0 - Urinary tract infection, site not specified Status: Acute (7) SVT (supraventricular tachycardia): Code(s): I47.1 - Supraventricular tachycardia Status: Chronic Subjective Date/time seen: 05/23/22 13:08 respiratory status is stable. Exam Const: General: cooperative, healthy appearing, comfortable, no acute distress, well developed, alert, awake, Physically active, ill appearing, average body habitus and well nourished Nutritional Appearance: average body habitus and well nourished Orientation/consciousness: oriented to person, oriented to place, oriented to time and patient oriented x3 Limitations: no limitations HENMT: Head: normal to inspection, No palpable skull fracture present, normocephalic and atraumatic Ears: hearing grossly normal bilaterally and external ears normal Face/Nose/Sinus: Normal external nose present and Normal nares present Eyes: General: appearance normal, both eyes and all related structures Alignment and Position: alignment normal Periorbital: periorbital findings normal Eyelids: eyelids normal Sclera: sclerae normal Pupils: Equal, round and reactive pupils present EOM: EOMs intact bilaterally Neck: Neck: normal visual inspection, full ROM, no lymphadenopathy, trachea midline and supple Chest: Chest palpation & inspection: normal inspection of the chest Resp: Effort & Inspection: normal respiratory effort Auscultation: clear to auscultation bilaterally Cardio: Palpation: normal PMI Rate: tachycardic Rhythm: regular rhythm Heart sounds: S1 normal heart sound present and S2 normal heart sound present Peripheral pulses: Peripheral pulses 2+ throughout GI: Inspection: normal to inspection Auscultation: normal bowel sounds Rectal Exam: deferred : General: Yes no CVA tenderness Back/Spine/Pelvis: Back: no CVA tenderness Skin: General skin exam: normal color Lesions: no lesions Rashes: no rashes Trauma: no lacerations or abrasions Wounds: no wounds Hair: normal Nails: normal Neuro: General: oriented to person, oriented to place, oriented to time and patient oriented x3 Cranial nerves: Yes Equal, round and reactive pupils present and Yes Normal hearing present Cognition (Neuro): normal cognition Speech: normal speech Gait exam (Neuro): Normal gait present Motor exam (neuro): 5/5 motor strength present throughout Sensory Exam: normal sensation Extrem: General: normal to inspection Right upper extremity: normal to inspection and shoulder/upper arm Left upper extremity: normal to inspection and shoulder/upper arm Right lower extremity: normal to inspection Left lower extremity: normal to inspection Psych: Appearance: grossly normal Mental Status: mental status osvaldo
--- NOTE | 2022-05-23 19:12 | PC.NURSE ---
patient transferred to room 301 at 1900. oriented to room and call system
--- NOTE | 2022-05-23 23:30 | PCRCNOTE ---
Window of time for administration has passed. See next scheduled administration.
[2022-05-24] VITALS (9 sets, daily range): BP systolic 90–122; BP diastolic 54–74; PULSE 77–93; RESP 14–28; TEMP 36.3–36.8; O2SAT 92–99
[2022-05-24 06:47] LABS: Basophils Percent Auto 0.4 % (0.2-1.2); Eosinophils Absolute Auto 0.3 K/mm3 (0-0.3); Eosinophils Percent Auto 3.4 % (0-4.4); Hematocrit 29.6 % (37.0-47.0); Hemoglobin 9.2 g/dL (12.0-15.0); Immature Granulocyte Absolute 0.04 K/mm3 (0.00-0.031); Immature Granulocyte Percent A 0.5 % (0-0.5); Lymphocytes Absolute Auto 2.02 K/mm3 (0.9-3.2); Lymphocytes Percent Auto 25.7 % (18.3-44.2); Mean Corpuscular HGB Conc 31.1 g/dl (32-36); Mean Corpuscular Hemoglobin 29.3 pg (26-34); Mean Corpuscular Volume 94.3 fl (80-100); Mean Platelet Volume 11.2 fl (7.4-10.4); Monocytes Absolute Auto 0.8 K/mm3 (0.1-0.6); Monocytes Percent Auto 9.9 % (2.6-8.5); Neutrophils Absolute Auto 4.7 K/mm3 (1.3-6.7); Neutrophils Percent Auto 60.1 % (45.5-73.1); Platelet Count Result 327 k/mm3 (150-375); Red Blood Count 3.14 M/mm3 (4.2-5.4); Red Cell Distribution Width 14.9 % (11.5-14.5); White Blood Count 7.9 K/mm3 (4.5-10.0)
[2022-05-24] MEDS: ACETAMINOPHEN 325 MG TABLET 650 MG PO ×3 (08:07→21:57)
[2022-05-24] MEDS: LORazepam (*CRX) 0.5 MG TABLET PO (08:07)
[2022-05-24] MEDS: PANTOPRAZOLE 40 MG TABLET PO ×2 (08:08→21:57)
[2022-05-24] MEDS: guaiFENesin 12 HR 600 MG TABCR PO ×2 (08:08→21:57)
[2022-05-24] MEDS: ENOXAPARIN 40 MG/0.4 ML SYRINGE SUB-Q (08:08)
[2022-05-24] MEDS: dilTIAZem HCL CD 180 MG CAP.ER.24H PO (08:08)
[2022-05-24] MEDS: ROSUVASTATIN 10 MG TABLET 20 MG PO (08:08)
[2022-05-24] MEDS: CYANOCOBALAMIN 1,000 MCG TABLET 1000 MCG PO (08:08)
[2022-05-24] MEDS: LORATADINE 10 MG TABLET PO (08:08)
[2022-05-24] MEDS: BUDESONIDE RESPULE NEB 0.5 MG/2 ML AMP INHALATION (08:11)
[2022-05-24 09:24] LABS: Alanine Aminotransferase 38 U/L (6-35); Aspartate Amino Transferase 47 U/L (14-36)
[2022-05-24] MEDS: BARICITINIB 2 MG TABLET PO (11:08)
--- NOTE | 2022-05-24 11:09 | PM.IMPN ---
Progress Note: A&P Assessment and Plan (1) COVID: Code(s): U07.1 - COVID-19 Status: Acute Assessment and Plan: Patient appears to be doing okay. Continue baricitinib. Oxygen as needed. She is currently on O2 3L nasal cannula. Continue supportive care (2) HABP (hospital-acquired bacterial pneumonia): Code(s): J15.9 - Unspecified bacterial pneumonia Status: Acute Assessment and Plan: IV antibiotics (3) COPD with acute exacerbation: Code(s): J44.1 - Chronic obstructive pulmonary disease with (acute) exacerbation Status: Acute Assessment and Plan: continue continue inhaler (4) Hyperlipidemia: Qualifiers: Hyperlipidemia type: mixed hyperlipidemia Qualified Code(s): E78.2 - Mixed hyperlipidemia Code(s): E78.5 - Hyperlipidemia, unspecified Status: Chronic (5) Gastroesophageal reflux disease: Qualifiers: Esophagitis presence: esophagitis presence not specified Qualified Code(s): K21.9 - Gastro-esophageal reflux disease without esophagitis Code(s): K21.9 - Gastro-esophageal reflux disease without esophagitis Status: Chronic (6) UTI (urinary tract infection): Code(s): N39.0 - Urinary tract infection, site not specified Status: Acute Assessment and Plan: cefepime (7) SVT (supraventricular tachycardia): Code(s): I47.1 - Supraventricular tachycardia Status: Chronic Subjective Date/time seen: 05/24/22 11:09 no new complaints Exam Const: General: cooperative, healthy appearing, comfortable, no acute distress, well developed, alert, awake, Physically active, ill appearing, average body habitus and well nourished Nutritional Appearance: average body habitus and well nourished Orientation/consciousness: oriented to person, oriented to place, oriented to time and patient oriented x3 Limitations: no limitations HENMT: Head: normal to inspection, No palpable skull fracture present, normocephalic and atraumatic Ears: hearing grossly normal bilaterally and external ears normal Face/Nose/Sinus: Normal external nose present and Normal nares present Eyes: General: appearance normal, both eyes and all related structures Alignment and Position: alignment normal Periorbital: periorbital findings normal Eyelids: eyelids normal Sclera: sclerae normal Pupils: Equal, round and reactive pupils present EOM: EOMs intact bilaterally Neck: Neck: normal visual inspection, full ROM, no lymphadenopathy, trachea midline and supple Chest: Chest palpation & inspection: normal inspection of the chest Resp: Effort & Inspection: normal respiratory effort Auscultation: clear to auscultation bilaterally Cardio: Palpation: normal PMI Rate: tachycardic Rhythm: regular rhythm Heart sounds: S1 normal heart sound present and S2 normal heart sound present Peripheral pulses: Peripheral pulses 2+ throughout GI: Inspection: normal to inspection Auscultation: normal bowel sounds Rectal Exam: deferred : General: Yes no CVA tenderness Back/Spine/Pelvis: Back: no CVA tenderness Skin: General skin exam: normal color Lesions: no lesions Rashes: no rashes Trauma: no lacerations or abrasions Wounds: no wounds Hair: normal Nails: normal Neuro: General: oriented to person, oriented to place, oriented to time and patient oriented x3 Cranial nerves: Yes Equal, round and reactive pupils present and Yes Normal hearing present Cognition (Neuro): normal cognition Speech: normal speech Gait exam (Neuro): Normal gait present Motor exam (neuro): 5/5 motor strength present throughout Sensory Exam: normal sensation Extrem: General: normal to inspection Right upper extremity: normal to inspection and shoulder/upper arm Left upper extremity: normal to inspection and shoulder/upper arm Right lower extremity: normal to inspection Left lower extremity: normal to inspection Psych: Appearance: grossly normal Menta
--- NOTE | 2022-05-24 23:14 | PCRCNOTE ---
Window of time for administration has passed. See next scheduled administration.
[2022-05-25] VITALS: BP 102/69; PULSE 78; RESP 18; TEMP 36.6; O2SAT 97
[2022-05-25 04:32] VITALS: BP 112/74; PULSE 74; RESP 16; TEMP 36.7; O2SAT 98
[2022-05-25 06:37] LABS: Basophils Percent Auto 0.6 % (0.2-1.2); Eosinophils Absolute Auto 0.3 K/mm3 (0-0.3); Eosinophils Percent Auto 4.9 % (0-4.4); Hematocrit 29.5 % (37.0-47.0); Hemoglobin 9.3 g/dL (12.0-15.0); Immature Granulocyte Absolute 0.05 K/mm3 (0.00-0.031); Immature Granulocyte Percent A 0.7 % (0-0.5); Lymphocytes Absolute Auto 2.04 K/mm3 (0.9-3.2); Lymphocytes Percent Auto 30.6 % (18.3-44.2); Mean Corpuscular HGB Conc 31.5 g/dl (32-36); Mean Corpuscular Hemoglobin 28.7 pg (26-34); Mean Platelet Volume 10.9 fl (7.4-10.4); Monocytes Absolute Auto 0.9 K/mm3 (0.1-0.6); Monocytes Percent Auto 12.7 % (2.6-8.5); Neutrophils Absolute Auto 3.4 K/mm3 (1.3-6.7); Neutrophils Percent Auto 50.5 % (45.5-73.1); Platelet Count Result 362 k/mm3 (150-375); Red Blood Count 3.24 M/mm3 (4.2-5.4); Red Cell Distribution Width 14.6 % (11.5-14.5); White Blood Count 6.7 K/mm3 (4.5-10.0)
[2022-05-25 06:48] LABS: Alanine Aminotransferase 28 U/L (6-35); Aspartate Amino Transferase 33 U/L (14-36)
[2022-05-25 08:18] VITALS: PULSE 78; RESP 22; O2SAT 95
[2022-05-25] MEDS: BUDESONIDE RESPULE NEB 0.5 MG/2 ML AMP INHALATION (08:18)
[2022-05-25 08:30] VITALS: PULSE 79; RESP 22
[2022-05-25] MEDS: ENOXAPARIN 40 MG/0.4 ML SYRINGE SUB-Q (09:04)
[2022-05-25] MEDS: LORATADINE 10 MG TABLET PO (09:04)
[2022-05-25] MEDS: CYANOCOBALAMIN 1,000 MCG TABLET 1000 MCG PO (09:04)
[2022-05-25] MEDS: guaiFENesin 12 HR 600 MG TABCR PO (09:04)
[2022-05-25] MEDS: dilTIAZem HCL CD 180 MG CAP.ER.24H PO (09:04)
[2022-05-25] MEDS: ACETAMINOPHEN 325 MG TABLET 650 MG PO ×2 (09:05→17:04)
[2022-05-25] MEDS: ROSUVASTATIN 10 MG TABLET 20 MG PO (09:05)
[2022-05-25] MEDS: LORazepam (*CRX) 0.5 MG TABLET PO (09:05)
[2022-05-25] MEDS: PANTOPRAZOLE 40 MG TABLET PO (09:05)
[2022-05-25] MEDS: BARICITINIB 2 MG TABLET PO (11:34)
[2022-05-25 12:00] VITALS: BP 110/71; PULSE 92; RESP 16; TEMP 36.5; O2SAT 96
--- NOTE | 2022-05-25 12:52 | PM.DS ---
DS: Admitting Diagnosis Discharge Date May 25, 2022 Admitting Diagnosis pneumonia, COVID, UTI DS: Discharge Diagnosis Discharge Diagnosis (1) COVID: Code(s): U07.1 - COVID-19 Status: Acute Assessment and Plan: Patient appears to be doing okay. on her home oxygen dose (2) HABP (hospital-acquired bacterial pneumonia): Code(s): J15.9 - Unspecified bacterial pneumonia Status: Acute Assessment and Plan: IV antibiotics (3) COPD with acute exacerbation: Code(s): J44.1 - Chronic obstructive pulmonary disease with (acute) exacerbation Status: Acute Assessment and Plan: continue continue inhaler (4) Hyperlipidemia: Qualifiers: Hyperlipidemia type: mixed hyperlipidemia Qualified Code(s): E78.2 - Mixed hyperlipidemia Code(s): E78.5 - Hyperlipidemia, unspecified Status: Chronic (5) Gastroesophageal reflux disease: Qualifiers: Esophagitis presence: esophagitis presence not specified Qualified Code(s): K21.9 - Gastro-esophageal reflux disease without esophagitis Code(s): K21.9 - Gastro-esophageal reflux disease without esophagitis Status: Chronic (6) UTI (urinary tract infection): Code(s): N39.0 - Urinary tract infection, site not specified Status: Acute Assessment and Plan: cefepime (7) SVT (supraventricular tachycardia): Code(s): I47.1 - Supraventricular tachycardia Status: Chronic DS: Summary Hospital Course Hospital Course: patient is a 77-year-old female came in with shortness of breath. She was found COVID pneumonia with likely superimposed bacterial pneumonia. She was started on antibiotics to treat her bacterial pneumonia and she was also have UTI. UTI did grow resistant strain. Patient was continued on cefepime IV to treat both her pneumonia and also UTI. She did exceptionally well. She uses 2-3 L of oxygen at home. Currently she is on 1-2 L of oxygen here in the hospital. Patient denies any chest pain or shortness of breath. She was able to walk 80ft on her own without any assistance with the exception of a walker. Patient otherwise can be discharged home. Time Spent with Patient Time attestation: Total time spent providing and/or coordinating discharge services: Exam Const: General: cooperative, healthy appearing, comfortable, no acute distress, well developed, alert, awake, Physically active, ill appearing, average body habitus and well nourished Nutritional Appearance: average body habitus and well nourished Orientation/consciousness: oriented to person, oriented to place, oriented to time and patient oriented x3 Limitations: no limitations HENMT: Head: normal to inspection, No palpable skull fracture present, normocephalic and atraumatic Ears: hearing grossly normal bilaterally and external ears normal Face/Nose/Sinus: Normal external nose present and Normal nares present Eyes: General: appearance normal, both eyes and all related structures Alignment and Position: alignment normal Periorbital: periorbital findings normal Eyelids: eyelids normal Sclera: sclerae normal Pupils: Equal, round and reactive pupils present EOM: EOMs intact bilaterally Neck: Neck: normal visual inspection, full ROM, no lymphadenopathy, trachea midline and supple Chest: Chest palpation & inspection: normal inspection of the chest Resp: Effort & Inspection: normal respiratory effort Auscultation: clear to auscultation bilaterally Cardio: Palpation: normal PMI Rate: tachycardic Rhythm: regular rhythm Heart sounds: S1 normal heart sound present and S2 normal heart sound present Peripheral pulses: Peripheral pulses 2+ throughout GI: Inspection: normal to inspection Auscultation: normal bowel sounds Rectal Exam: deferred : General: Yes no CVA tenderness Back/Spine/Pelvis: Back: no CVA tenderness Skin: General skin exam: normal color Lesions: no lesions Rashes: no
[2022-05-25 16:00] VITALS: BP 110/86; PULSE 81; RESP 20; TEMP 37.1; O2SAT 94
== END 2022-05-25 18:10 | disposition home or self-care (01) | DRG 177 ==
LOC: ANHED 17:29 → ANHICU 17:31 → ANHIMU 20:51 → ANH3MEDSUR 05-24 06:32 → ANHIMU 05-28 14:35
PROVIDERS: Family Medicine; Nurse Practitioner; Admitting Provider Internal Medicine; Emergency Provider Emergency Medicine; PCP Physician Assistant; Visit Provider Chiropractor
DX: U07.1 COVID-19 (principal); J15.9 Unspecified bacterial pneumonia; J96.10 Chronic respiratory failure, unspecified whether with hypoxia or hypercapnia; I47.1 Supraventricular tachycardia; J44.0 Chronic obstructive pulmonary disease with (acute) lower respiratory infection; J44.1 Chronic obstructive pulmonary disease with (acute) exacerbation; N39.0 Urinary tract infection, site not specified; E86.0 Dehydration; Y95 Nosocomial condition; I25.10 Atherosclerotic heart disease of native coronary artery without angina pectoris; E78.5 Hyperlipidemia, unspecified; K21.9 Gastro-esophageal reflux disease without esophagitis; M85.80 Other specified disorders of bone density and structure, unspecified site; G47.33 Obstructive sleep apnea (adult) (pediatric); Z66 Do not resuscitate; Z99.81 Dependence on supplemental oxygen; Z87.891 Personal history of nicotine dependence
CPT/HCPCS: 36415; 51701; 71045; 80053; 81001; 82565; 82803; 83605; 83690; 83880; 84443; 84450; 84460; 84484; 85025; 85610; 85730; 86140; 87040; 87070; 87077; 87086; 87088; 87186; 87205; 87637; 93005; 94640; 96365; 96367; 97116; 97161; 97165; 97530; 97535; 99285; A9270; J0131; J0692; J1650; J3370; J7030; J7120

== ENCOUNTER 2022-05-29 03:39 | Inpatient (IN) | payer MEDICARE, SELFPAY ==
[2022-05-29] VITALS (12 sets, daily range): BP systolic 101–147; BP diastolic 65–82; PULSE 76–95; RESP 16–21; TEMP 36.7–36.9; O2SAT 93–98
--- NOTE | ~2022-05-29 | CT_ITS ---
EXAMINATION: CTA chest PE abdomen pel DATE: 05/29/2022 06:39 INDICATION: Left sided chest/flank pain. TECHNIQUE: Computed tomography (CT) pulmonary angiogram of the chest was performed with 100 mL Omnipa que-350 intravenous contrast. Additional 3D reconstructions utilizing coronal maximum intensity proje ction (MIP) were performed. CT of the abdomen and pelvis was performed with intravenous contrast util izing the same contrast bolus following a short delay. Automated exposure control and iterative recon struction technique were employed. The dose-length product was 479.30 mGy-cm. COMPARISON: CT studies dated 04/30/2022 and 06/20/2021 FINDINGS: Chest: Excellent contrast opacification of the pulmonary arteries. There is mild streak artifact from dense contrast in the superior vena cava and right atrium. Mild to moderate respiratory motion artifact mos t prominent at the lung bases where it decreases sensitivity in the smaller subsegmental pulmonary ar teries. Nonocclusive pulmonary arterial filling defects in the lingular pulmonary artery extending in to both the superior and inferior segmental pulmonary arteries in the more posterior branch of the le ft lower lobar pulmonary artery. There is atelectasis in the basilar segments of the left pulmonary a rtery with a couple small regions of decreased enhancement suggesting pulmonary infarcts. Small left and trace right pleural effusions. Additional minimal atelectasis at the posterior sulcus of the righ t lower lobe. A couple small calcified granuloma in the left lower lobe. Severe emphysema with modera te biapical pleural-parenchymal scarring. No pneumonia, pulmonary edema or pneumothorax. Heart size i s normal. No leftward shift of the ventricular septum to suggest right heart strain. Atherosclerotic coronary artery calcifications. No pericardial effusion. Thoracic aorta is within normal limits. No p athologically enlarged thoracic lymphadenopathy. Chronic-appearing T5 and T8 compression fractures. C apsular calcific location associated with bilateral breast implants. Abdomen/pelvis: Unchanged 6 mm hepatic cyst. Gallbladder, spleen, pancreas and bilateral adrenal glands are normal. B ilateral low-attenuation renal cysts, the largest in the right kidney measuring up to 1.6 cm. There a re a few scattered sigmoid diverticula without adjacent inflammatory stranding to suggest diverticuli tis. No bowel obstruction. Bladder is normal. The uterus is not identified and has likely been surgic ally resected. Increase in size since 06/20/2021. Previously 1 cm, currently 2.1 cm right adnexal cys t. Left adnexa is normal. No free intraperitoneal gas or fluid. No pathologically enlarged abdominal or pelvic lymphadenopathy. Chronic L1 and L3 compression fractures. IMPRESSION: 1. Pulmonary emboli in the lingular pulmonary artery and the posterior branch of the left lower lobar pulmonary artery and a couple small pulmonary infarcts in the atelectatic basilar segments of the le ft lower lobe. 2. Small left and trace right pleural effusions. 3. Severe emphysema. 4. No acute intra-abdominal/pelvic process. Reviewed, dictated and finalized at location [facility]. [facility] IMPRESSION: 1. Pulmonary emboli in the lingular pulmonary artery and the posterior branch o f the left lower lobar pulmonary artery and a couple small pulmonary infarcts i n the atelectatic basilar segments of the left lower lobe. 2. Small left and trace right pleural effusions. 3. Severe emphysema. 4. No acute intra-abdominal/pelvic process.
--- NOTE | ~2022-05-29 | US_ITS ---
EXAMINATION: US venous doppler [facility] DATE: 05/29/2022 22:53 INDICATION: Pulmonary embolism with chest pain. TECHNIQUE: Grayscale ultrasound images without and with compression and Doppler ultrasound images of the bilateral lower extremity veins were obtained. COMPARISON: None. FINDINGS: The visualized portions of right common femoral vein, profunda (deep) femoral vein, femoral vein, pop liteal vein, posterior tibial veins, peroneal veins, gastrocnemius vein and greater saphenous vein ou tflow are patent. The visualized portions of left common femoral vein, profunda femoral vein, femoral vein, popliteal v ein, posterior tibial veins, peroneal veins, gastrocnemius vein and greater saphenous vein outflow ar e patent. IMPRESSION: 1. No deep venous thrombosis in either lower limb. Reviewed, dictated and finalized at location [facility]. [facility]
--- NOTE | 2022-05-29 03:54 | ECG_ITS ---
Measurements Intervals [place] Rate: 84 P: 42 FL: 172 QRS: -18 QRSD: 75 T: 33 QT: 371 QTc: 440 Interpretive Statements SINUS RHYTHM WITH OCCASIONAL VENTRICULAR PREMATURE COMPLEXES COMPARED TO ECG 05/21/2022 13:46:11 SINUS RHYTHM NOW PRESENT Electronically Signed On 05-29-2022 15:29:47 BOOK [employer] by Ngoc Paredes M.D.
[2022-05-29] MEDS: SODIUM CHLORIDE 0.9% IV 1,000 ML 500 ML IV CONT (04:22)
[2022-05-29 04:24] LABS: Basophils Absolute Auto 0.1 K/mm3 (0.0-0.1); Basophils Percent Auto 0.7 % (0.2-1.2); Eosinophils Absolute Auto 0.2 K/mm3 (0-0.3); Eosinophils Percent Auto 3.1 % (0-4.4); Hematocrit 32.7 % (37.0-47.0); Hemoglobin 10.2 g/dL (12.0-15.0); Immature Granulocyte Absolute 0.14 K/mm3 (0.00-0.031); Immature Granulocyte Percent A 1.9 % (0-0.5); Lymphocytes Absolute Auto 1.67 K/mm3 (0.9-3.2); Lymphocytes Percent Auto 22.4 % (18.3-44.2); Mean Corpuscular HGB Conc 31.2 g/dl (32-36); Mean Corpuscular Hemoglobin 29.4 pg (26-34); Mean Corpuscular Volume 94.2 fl (80-100); Mean Platelet Volume 10.6 fl (7.4-10.4); Monocytes Absolute Auto 1.1 K/mm3 (0.1-0.6); Monocytes Percent Auto 15.2 % (2.6-8.5); Neutrophils Absolute Auto 4.2 K/mm3 (1.3-6.7); Neutrophils Percent Auto 56.7 % (45.5-73.1); Platelet Count Result 593 k/mm3 (150-375); Red Blood Count 3.47 M/mm3 (4.2-5.4); Red Cell Distribution Width 15.4 % (11.5-14.5); White Blood Count 7.5 K/mm3 (4.5-10.0)
--- NOTE | 2022-05-29 04:25 | ED.GENADULT ---
HPI - General Adult General Chief complaint: Unspecified <Ramírez Carter MD - Last Filed: 05/29/22 04:26> Stated complaint: FLANK PAIN <Ramírez Carter MD - Last Filed: 05/29/22 04:26> Time Seen by Provider: 05/29/22 03:48 <Ramírez Carter MD - Last Filed: 05/29/22 04:26> History of Present Illness HPI narrative: Patient is 77-year-old female who presents emerged department with chief complaint of left flank pain. Patient reports that she was recently in the hospital for a viral infection and reports that she started having pain in her left flank area. The patient reports the pain is a sharp type pain at times is worse with inspiration and at times its not improved by anything but reports that it spontaneously improved whenever she arrived to the emergency department. Patient denies fever denies vomiting denies diarrhea <Ramírez Carter MD - Last Filed: 05/29/22 04:26> Related Data Home medications: Home Medications Medication Instructions Recorded Confirmed diltiazem HCl 180 mg 180 mg PO DAILY 06/20/21 05/21/22 capsule,extended release 24 hr (Cardizem CD) loratadine 10 mg tablet 10 mg PO PRN 05/21/22 05/21/22 lorazepam 0.5 mg tablet 0.5 mg PO DAILY anxiety 05/21/22 05/21/22 <Ramírez Carter MD - Last Filed: 05/29/22 04:26> Allergies/adverse reactions: Allergies Allergy/AdvReac Type Severity Reaction Status Date / Time No Known Allergies Allergy Verified 05/29/22 03:47 <Ramírez Carter MD - Last Filed: 05/29/22 04:26> Review of Systems Review of Systems: A 10 system review of systems was completed on the patient and is negative except for what is stated in the HPI. Nursing and ancillary documentation was reviewed. <Ramírez Carter MD - Last Filed: 05/29/22 04:26> PMFSH Past Medical History Medical History: Medical History Abnormal nuclear stress test (03/2022) Cardiac catheterization on 04/02/2022 showed preserved left ventricular systolic function with minimal atherosclerosis of the proximal LAD and the proximal and mid RCA. Chronic respiratory failure with hypoxia, on home oxygen therapy COPD with emphysema Coronary artery calcification Calcifications noted on chest CT in October 2019. Echocardiogram showed normal left ventricular systolic function with an ejection fraction of 65 to 70% as well as grade 1 diastolic dysfunction. Gastroesophageal reflux disease History of tobacco abuse 45 pack year smoking history, quit in October 2019. Lumbar compression fracture SAGRARIO (obstructive sleep apnea) Osteopenia Supraventricular tachycardia <Ramírez Carter MD - Last Filed: 05/29/22 04:26> Surgical History Surgical History: Surgical History History of bladder suspension procedure History of breast augmentation History of cardiac catheterization (03/2022) History of partial hysterectomy <Ramírez Carter MD - Last Filed: 05/29/22 04:26> Family History Family History: Family History Mother Family history of heart disease in male family member before age 55 Cerebrovascular accident Heart attack Sibling Family history of heart disease in male family member before age 55 Heart attack Cerebrovascular accident Transitional cell carcinoma Father Cerebrovascular accident <Ramírez Carter MD - Last Filed: 05/29/22 04:26> Social History Social History: Social History Social History: She is and lives alone. She has 8 biological children and 2 adopted daughters. She is retired from [employer]. She is a former smoker. She denies any alcohol marijuana or illicit drugs. Surrogate decision maker: Nancy
[2022-05-29 04:33] LABS: Lactic Acid Reflex 0.8 mmol/L (0.7-2.0)
[2022-05-29 04:34] LABS: Alanine Aminotransferase 26 U/L (6-35); Albumin Level 3.4 g/dL (3.5-5.1); Alkaline Phosphatase 89 U/L (38-126); Anion Gap 7 mmol/L (8-16); Aspartate Amino Transferase 31 U/L (14-36); Bilirubin,Total 0.3 mg/dL (0.2-1.3); Blood Urea Nitrogen 10 mg/dL (7-17); Calcium 8.2 mg/dL (8.4-10.2); Carbon Dioxide 26 mmol/L (22-30); Chloride 109 mmol/L (98-107); Estimated CRCL calculation 59 ml/min; Estimated Glomerular Filt Rate > 60; Glucose 98 mg/dL (65-110); Lipase 181 U/L (23-300); Magnesium 2.2 mg/dL (1.6-2.3); Potassium 3.2 mmol/L (3.4-5.0); Prothrombin Time 13.1 Seconds (11.1-14.7); Sodium 142 mmol/L (137-145)
[2022-05-29 04:36] LABS: Partial Thromboplastin Time 27.4 SECONDS (22.3-36.8)
[2022-05-29 04:45] LABS: Troponin I < 0.012 ng/mL (0.000-0.034)
[2022-05-29 05:05] LABS: Procalcitonin 0.1 ng/mL
[2022-05-29] MEDS: MORPHINE SULFATE (*CRX) 4 MG/ML INJ IV PUSH ×2 (05:59→06:46)
[2022-05-29 06:50] LABS: Appearance Urine Clear (Clear); Bilirubin Urine Negative (Negative); Blood Urine Negative (Negative); Color Urine Yellow (Yellow); Glucose Urine UA Negative (Negative); Ketones Urine Negative (Negative); Leukocyte Esterase Ur Negative LEU/UL (Negative); Nitrate Urine Negative (Negative); Protein Urine Negative (Negative)
[2022-05-29 06:52] LABS: Add Urine Microscopic? NO
[2022-05-29 07:27] LABS: Troponin I < 0.012 ng/mL (0.000-0.034)
[2022-05-29] MEDS: HYDROmorphone HCL INJ (*CRX) 1 MG/ML SYR 0.5 MG IV PUSH (10:18)
[2022-05-29] MEDS: ENOXAPARIN 60 MG/0.6 ML SYRINGE 58 MG SUB-Q ×2 (10:32→21:24)
[2022-05-29 11:42] LABS: Influenza A QL RT-PCR Negative (Negative); Influenza B QL RT-PCR Negative (Negative); SARS-CoV-2 RNA PCR Negative
--- NOTE | 2022-05-29 13:00 | PM.IMHP ---
H&P: HPI History of Present Illness Date/Time: 05/29/22 13:00 Chief Complaint: Left chest/flank pain. Narrative: This is a 77-year-old female, former smoker, with COPD and severe emphysema with chronic respiratory failure on 1-2 liters nasal cannula who presented to the ED for evaluation of left chest/flank pain. recent flu A and COVID discharged on 05/25 [facility] Past Medical History Medical History Abnormal nuclear stress test (03/2022) Cardiac catheterization on 04/02/2022 showed preserved left ventricular systolic function with minimal atherosclerosis of the proximal LAD and the proximal and mid RCA. Chronic respiratory failure with hypoxia, on home oxygen therapy COPD with emphysema Coronary artery calcification Calcifications noted on chest CT in October 2019. Echocardiogram showed normal left ventricular systolic function with an ejection fraction of 65 to 70% as well as grade 1 diastolic dysfunction. Gastroesophageal reflux disease History of tobacco abuse 45 pack year smoking history, quit in October 2019. Lumbar compression fracture SAGRARIO (obstructive sleep apnea) Osteopenia Supraventricular tachycardia Surgical History Surgical History History of bladder suspension procedure History of breast augmentation History of cardiac catheterization (03/2022) History of partial hysterectomy Family History Family History Mother Family history of heart disease in male family member before age 55 Cerebrovascular accident Heart attack Sibling Family history of heart disease in male family member before age 55 Heart attack Cerebrovascular accident Transitional cell carcinoma Father Cerebrovascular accident Social History Social History (Updated 05/29/22 @ 14:42 by Essie Hall PA-C) Social History: Surrogate decision maker: Nancy Keith, granddaughter. Code status: dnr. Smoking packs per day: 1 Smoking cigarettes per day: 20.0 Years smoked: 63 Smoking pack-years: 63.00 Smoking status: Former smoker Tobacco type: cigarettes Second hand tobacco smoke exposure: Yes Smoking end date: 06/24/19 Additional smoking assessment comments: Smoked .75 packs per day but up to 1.5 - 2 packs per day for over a year. Alcohol intake: never Substance use: never Substance use type: does not use Lack of Transportation: No Lack of Food: Never True Current Housing: I Have Housing Concerned About Future Housing: No Difficulty Paying Gas/Electric Bills: No Difficulty Paying for Meds: No Currently Unemployed: No Education: High School Diploma/GED Difficulty w/ Childcare or Family Care: No Additional living arrangements comments: Lives alone, son Valentino lives 1 house away. Additional occupation/education comments: Worked 40 years [employer], , raised 8 children on her own. Spiritual care concerns: No Meds Home Medications and Allergies Home Medications Medication Instructions Recorded Confirmed Type diltiazem HCl 180 mg 180 mg PO DAILY 06/20/21 05/21/22 History capsule,extended release 24 hr (Cardizem CD) rosuvastatin 20 mg tablet 20 mg PO DAILY #90 tabs 07/14/21 05/21/22 Rx pantoprazole 40 mg tablet,delayed 40 mg PO BID #180 tabs 01/18/22 05/21/22 Rx release cyanocobalamin (vitamin B-12) 1,000 mcg PO DAILY #90 tabs 01/19/22 05/21/22 Rx 1,000 mcg tablet budesonide 0.5 mg/2 mL suspension See Rx Instructions .Route 02/22/22 05/21/22 Rx for nebulization .COMPLEX #120 mL albuterol sulfate 90 mcg/actuation 2 puff inhalation QID PRN 03/28/22 05/21/22 Rx aerosol inhaler shortness of breath or wheezing #8.5 grams guaifenesin 600 mg tablet, 600 mg PO Q12HR #60 tabs 05/14/22 05/21/22 Rx extended release 12 hr (Mucus Relief ER) ipratropium 0.5 mg-albuterol 3 mg 3 ml inhalat
[2022-05-29] MEDS: MORPHINE SULFATE (*CRX) 2 MG/ML INJ IV PUSH (14:59)
[2022-05-29] MEDS: POTASSIUM CHLORIDE 20 MEQ TABLET 40 MEQ PO (14:59)
[2022-05-29] MEDS: PANTOPRAZOLE 40 MG TABLET PO (21:23)
[2022-05-29] MEDS: traMADol HCL (*CRX) 25 MG TABLET PO (21:23)
[2022-05-29] MEDS: guaiFENesin 12 HR 600 MG TABCR PO (21:24)
[2022-05-30] VITALS (12 sets, daily range): BP systolic 98–131; BP diastolic 62–76; PULSE 79–104; RESP 16–20; TEMP 37.1–37.5; O2SAT 90–94
[2022-05-30] MEDS: traMADol HCL (*CRX) 25 MG TABLET PO ×3 (05:32→20:09)
[2022-05-30 06:06] LABS: Basophils Absolute Auto 0.1 K/mm3 (0.0-0.1); Basophils Percent Auto 0.7 % (0.2-1.2); Eosinophils Absolute Auto 0.2 K/mm3 (0-0.3); Eosinophils Percent Auto 2.3 % (0-4.4); Hematocrit 31.1 % (37.0-47.0); Hemoglobin 9.7 g/dL (12.0-15.0); Immature Granulocyte Absolute 0.16 K/mm3 (0.00-0.031); Immature Granulocyte Percent A 1.7 % (0-0.5); Lymphocytes Absolute Auto 2.35 K/mm3 (0.9-3.2); Lymphocytes Percent Auto 24.8 % (18.3-44.2); Mean Corpuscular HGB Conc 31.2 g/dl (32-36); Mean Corpuscular Volume 92.8 fl (80-100); Mean Platelet Volume 10.5 fl (7.4-10.4); Monocytes Absolute Auto 1.4 K/mm3 (0.1-0.6); Monocytes Percent Auto 14.6 % (2.6-8.5); Neutrophils Absolute Auto 5.3 K/mm3 (1.3-6.7); Neutrophils Percent Auto 55.9 % (45.5-73.1); Platelet Count Result 576 k/mm3 (150-375); Red Blood Count 3.35 M/mm3 (4.2-5.4); Red Cell Distribution Width 15.6 % (11.5-14.5); White Blood Count 9.5 K/mm3 (4.5-10.0)
[2022-05-30 06:25] LABS: Anion Gap 4 mmol/L (8-16); Blood Urea Nitrogen 9 mg/dL (7-17); Calcium 8.5 mg/dL (8.4-10.2); Carbon Dioxide 26 mmol/L (22-30); Chloride 107 mmol/L (98-107); Estimated CRCL calculation 59 ml/min; Estimated Glomerular Filt Rate > 60; Glucose 97 mg/dL (65-110); Magnesium 2.1 mg/dL (1.6-2.3); Potassium 3.7 mmol/L (3.4-5.0); Sodium 137 mmol/L (137-145)
[2022-05-30] MEDS: guaiFENesin 12 HR 600 MG TABCR PO ×2 (09:51→20:10)
[2022-05-30] MEDS: ROSUVASTATIN 10 MG TABLET 20 MG PO (09:51)
[2022-05-30] MEDS: CYANOCOBALAMIN 1,000 MCG TABLET 1000 MCG PO (09:51)
[2022-05-30] MEDS: dilTIAZem HCL CD 180 MG CAP.ER.24H PO (09:52)
[2022-05-30] MEDS: LORATADINE 10 MG TABLET PO (09:52)
[2022-05-30] MEDS: PANTOPRAZOLE 40 MG TABLET PO ×2 (09:52→17:04)
[2022-05-30] MEDS: APIXABAN 5 MG TABLET 10 MG PO ×2 (09:57→20:10)
[2022-05-30] MEDS: LORazepam (*CRX) 0.5 MG TABLET PO (09:59)
[2022-05-30] MEDS: ALBUTEROL SULFATE NEB 2.5 MG/3 ML INH INHALATION (10:05)
[2022-05-30] MEDS: BUDESONIDE RESPULE NEB 0.5 MG/2 ML AMP INHALATION (10:06)
--- NOTE | 2022-05-30 13:24 | PM.IMPN ---
Progress Note: A&P Assessment and Plan (1) Pulmonary embolism on left: Code(s): I26.99 - Other pulmonary embolism without acute cor pulmonale Status: Acute Assessment and Plan: Chest x-ray: Possible pneumonia, possible left small pleural effusion, presumed right basilar atelectasis. CTA: Pulmonary emboli and of lingular pulmonary artery white. Small left and right pleural effusions, severe emphysema. US lower extremity Doppler: No DVT in either lower limb. Patient changed from Lovenox to Eliquis 10 mg. Continue Eliquis 10 mg x7 days and then 5 mg x 3 months. Telemetry q.4 hours Continue pain management with IV analgesics as needed O2 sat stable at 93 on 3 L. Ween O2, maintain saturation >90 PT and OT eval (2) COPD with emphysema: Qualifiers: Emphysema type: unspecified Qualified Code(s): J43.9 - Emphysema, unspecified Code(s): J43.9 - Emphysema, unspecified Status: Acute Assessment and Plan: P.r.n. albuterol 2 puffs q.i.d. Atrovent Neb Q4-6 hr PRN Pulmicort Neb Q12hrt (3) Supraventricular tachycardia: Code(s): I47.1 - Supraventricular tachycardia Status: Acute Assessment and Plan: Continue Cardizem (4) Coronary artery calcification: Code(s): I25.10 - Atherosclerotic heart disease of [place] coronary artery without angina pectoris; I25.84 - Coronary atherosclerosis due to calcified coronary lesion Status: Acute Assessment and Plan: continue crestor (5) History of tobacco abuse: Code(s): Z87.891 - Personal history of nicotine dependence Status: Acute Assessment and Plan: nicotine patch prn Time Spent With Patient Time with patient: Greater than 35 minutes Subjective Date/time seen: 05/30/22 13:24 Interval history: 77-year-old female with a history of COPD, ventricular tachycardia, and hyperlipidemia. Patient is admitted due to the left-sided pulmonary embolism. Patient states that she is having left-sided pain with a cough. Patient did say that she had coughed up some dried blood earlier in the day but is no longer having this problem. Patient denies shortness of breath, chest pain, fever, chills, nausea, vomiting and lower extremity swelling Review of Systems Review of Systems: All systems reviewed & are unremarkable except as noted in HPI and below Exam Narrative: GENERAL: Comfortable, no acute distress HENMT: moist mucous membranes EYES: EOM intact b/l NECK: no lymphadenopathy RESPIRATORY: Distant breath sounds CARDIO: RRR GI: soft, nontender, bowel sounds present SKIN: no rashes EXTREMITIES: no edema, redness or tenderness Objective Data Vital Signs Vital Signs: Vital Signs - 24 hr 05/29/22 14:47 05/29/22 21:29 05/29/22 20:00 Temperature 98.1 F Pulse Rate 86 76 95 Respiratory Rate 20 16 Blood Pressure 114/72 114/66 Pulse Oximetry 96 98 Oxygen Delivery Oxygen Flow Rate 05/29/22 22:56 05/30/22 00:00 05/30/22 04:00 Temperature 98.1 F Pulse Rate 94 98 Respiratory Rate Blood Pressure Pulse Oximetry Oxygen Delivery Oxygen Flow Rate 05/30/22 06:00 05/30/22 10:06 05/30/22 10:09 Temperature 99.5 F Pulse Rate 102 H 95 Respiratory Rate 20 18 Blood Pressure 131/76 Pulse Oximetry 90 93 Oxygen Delivery Nasal Cannula Oxygen Flow Rate 3 05/30/22 10:16 Temperature Pulse Rate 92 Respiratory Rate 18 Blood Pressure Pulse Oximetry Oxygen Delivery Oxygen Flow Rate Intake/Output Intake/Output: Intake & Output 05/27/22 05/28/22 05/29/22 05/30/22 23:59 23:59 23:59 23:59 Intake Total 1000 240 Output Total 0 Balance 1000 240 Meds/Results Medications: Active Medications Generic Name Dose Route Start Last Admin Trade Name Freq PRN Reason Stop Dose Admin Acetaminophen 650 mg 05/29/22 14:44 Acetaminophen 325 Mg Tablet PO Q6H PRN Mild Pain (1-3) or Fever Albuterol 2 puff
[2022-05-31] VITALS (11 sets, daily range): BP systolic 94–133; BP diastolic 52–79; PULSE 75–93; RESP 18–20; TEMP 36.2–36.9; O2SAT 94–97
--- NOTE | 2022-05-31 | ECHO_ITS ---
Patient Info Name: Mary Kate Keith Age: 77 years : 1945 Gender: Female Ht: 64 in Wt: 125 lbs BSA: 1.60 m2 HR: 83 bpm BP: 94 / 62 mmHg Heart Rhythm: Sinus Rhythm Technical Quality: Fair Exam Date: 05/31/2022 1:51 PM Exam Location: [facility] Card Pulmonary Patient Status: Inpatient Admit Date: 05/29/2022 Staff Ordering Physician: Mercedes Farias PA-C Lace Stripper: Marcy Blackwell RDCS Attending Provider: Mann Molina MD Referring Physician: Jarrett SOFIA; Exam Type: CA echo doppler w bubble study Study Info Indications - PULMONARY EMBOLISM Complete two-dimensional, color flow and Doppler transthoracic echocardiogram is performed with agitated saline. Contrast/Agitated Saline Contrast/Ag. Saline: Agitated Saline Amount: 20.00 ml Administered By: Jacquelyn Austin RDCS Existing IV Access: Yes IV Access Condition: patent with no signs of infiltration Summary 1. Normal left ventricular size and contractility. 2. Normal right ventricular size. 3. No stigmata of pulmonary hypertension. 4. Trivial amount of MR. 5. Aortic valve sclerosis. 6. Compared to examination from last month ejection fraction is lower but still normal. Left Ventricle Left ventricular chamber dimension is normal. Left ventricular systolic function is normal, estimated at 50-55%. The left ventricular diastolic function is grade I diastolic dysfunction. Right Ventricle Right ventricular chamber dimension is normal. Left Atria Left atrial chamber dimension is normal. Right Atria Right atrial chamber dimension is normal. Atrial Septum Intact interatrial septum visualized by agitated saline imaging. Aortic Valve The aortic valve is trileaflet. There is mild aortic valve sclerosis. There is no aortic valve stenosis. Pulmonic Valve The pulmonic valve is normal. Mitral Valve The mitral valve has normal leaflets. There is trace mitral valve regurgitation. Tricuspid Valve The tricuspid valve leaflets are normal. Pericardium/Pleural The pericardium appears normal. Aorta The aortic root size at the sinus of Valsalva is normal. Left Ventricular Outflow Tract Name Value Normal LVOT 2D LVOT Diameter 2.0 cm LVOT Doppler LVOT Peak Gradient 4 mmHg LVOT Mean Gradient 2 mmHg LVOT VTI 20 cm LVOT VTI/AV VTI Ratio 0.7 LVOT Stroke Volume 62 ml LVOT CO 4.8 l/min LVOT CI 3.0 l/min/m2 Pulmonic Valve Name Value Normal RVOT Doppler RVOT Peak Gradient 1 mmHg PV Doppler PV Peak Gradient
--- NOTE | 2022-05-31 00:14 | PCRCNOTE ---
Window of time for administration has passed. See next scheduled administration.
[2022-05-31] MEDS: traMADol HCL (*CRX) 25 MG TABLET PO ×2 (04:54→20:00)
[2022-05-31 06:00] LABS: Hematocrit 30.2 % (37.0-47.0); Hemoglobin 9.2 g/dL (12.0-15.0); Mean Corpuscular HGB Conc 30.5 g/dl (32-36); Mean Corpuscular Hemoglobin 29.4 pg (26-34); Mean Corpuscular Volume 96.5 fl (80-100); Mean Platelet Volume 10.3 fl (7.4-10.4); Platelet Count Result 514 k/mm3 (150-375); Red Blood Count 3.13 M/mm3 (4.2-5.4); Red Cell Distribution Width 15.6 % (11.5-14.5)
[2022-05-31 06:16] LABS: Alanine Aminotransferase 18 U/L (6-35); Albumin Level 3.1 g/dL (3.5-5.1); Alkaline Phosphatase 73 U/L (38-126); Anion Gap 4 mmol/L (8-16); Aspartate Amino Transferase 23 U/L (14-36); Bilirubin,Total 0.3 mg/dL (0.2-1.3); Blood Urea Nitrogen 8 mg/dL (7-17); Calcium 8.4 mg/dL (8.4-10.2); Carbon Dioxide 28 mmol/L (22-30); Chloride 107 mmol/L (98-107); Estimated CRCL calculation 45 ml/min; Estimated Glomerular Filt Rate > 60; Glucose 102 mg/dL (65-110); Potassium 3.6 mmol/L (3.4-5.0); Sodium 139 mmol/L (137-145)
[2022-05-31] MEDS: dilTIAZem HCL CD 180 MG CAP.ER.24H PO (08:12)
[2022-05-31] MEDS: PANTOPRAZOLE 40 MG TABLET PO ×2 (08:12→17:54)
[2022-05-31] MEDS: ROSUVASTATIN 10 MG TABLET 20 MG PO (08:12)
[2022-05-31] MEDS: CYANOCOBALAMIN 1,000 MCG TABLET 1000 MCG PO (08:12)
[2022-05-31] MEDS: guaiFENesin 12 HR 600 MG TABCR PO ×2 (08:12→20:01)
[2022-05-31] MEDS: LORazepam (*CRX) 0.5 MG TABLET PO (08:12)
[2022-05-31] MEDS: APIXABAN 5 MG TABLET 10 MG PO ×2 (08:12→20:01)
[2022-05-31] MEDS: BUDESONIDE RESPULE NEB 0.5 MG/2 ML AMP INHALATION ×2 (10:08→20:13)
--- NOTE | 2022-05-31 14:55 | PM.IMPN ---
Progress Note: A&P Assessment and Plan (1) Pulmonary embolism on left: Code(s): I26.99 - Other pulmonary embolism without acute cor pulmonale Status: Acute Assessment and Plan: Chest x-ray: Possible pneumonia, possible left small pleural effusion, presumed right basilar atelectasis. CTA: Pulmonary emboli and of lingular pulmonary artery white. Small left and right pleural effusions, severe emphysema. US lower extremity Doppler: No DVT in either lower limb. Patient changed from Lovenox to Eliquis 10 mg. Continue Eliquis 10 mg x7 days and then 5 mg x 3 months. Telemetry q.4 hours Continue pain management with IV analgesics as needed O2 sat stable at 93 on 3 L. Ween O2, maintain saturation >90 PT and OT eval Echo ordered to evaluate possible cardiac damage. Patient states that her side pain today has improved since yesterday. (2) COPD with emphysema: Qualifiers: Emphysema type: unspecified Qualified Code(s): J43.9 - Emphysema, unspecified Code(s): J43.9 - Emphysema, unspecified Status: Acute Assessment and Plan: P.r.n. albuterol 2 puffs q.i.d. Atrovent Neb Q4-6 hr PRN Pulmicort Neb Q12hrt (3) Supraventricular tachycardia: Code(s): I47.1 - Supraventricular tachycardia Status: Acute Assessment and Plan: Continue Cardizem (4) Coronary artery calcification: Code(s): I25.10 - Atherosclerotic heart disease of jackson coronary artery without angina pectoris; I25.84 - Coronary atherosclerosis due to calcified coronary lesion Status: Acute Assessment and Plan: continue crestor (5) History of tobacco abuse: Code(s): Z87.891 - Personal history of nicotine dependence Status: Acute Assessment and Plan: nicotine patch prn (6) Anemia: Code(s): D64.9 - Anemia, unspecified Status: Acute Assessment and Plan: Patient's hemoglobin 9.2 Protonix 40 mg b.i.d. ordered Hemoccult ordered Patient's hemoglobin seems to run between 9 and 11 from previous hospitalizations. Time Spent With Patient Time with patient: Greater than 35 minutes Subjective Date/time seen: 05/31/22 14:55 Interval history: 77-year-old female with a history of COPD, ventricular tachycardia, and hyperlipidemia. Patient is admitted due to the left-sided pulmonary embolism. Patient states left-sided pain has improved but is still having a cough. Patient has blood in her sputum. Patient denies shortness of breath, chest pain, fever, chills, nausea, vomiting and lower extremity swelling. Review of Systems Review of Systems: All systems reviewed & are unremarkable except as noted in HPI and below Exam Narrative: GENERAL: Comfortable, no acute distress HENMT: moist mucous membranes EYES: EOM intact b/l NECK: no lymphadenopathy RESPIRATORY: Distant breath sounds CARDIO: RRR GI: soft, nontender, bowel sounds present SKIN: no rashes EXTREMITIES: no edema, redness or tenderness Objective Data Vital Signs Vital Signs: Vital Signs - 24 hr 05/30/22 16:00 05/30/22 20:11 05/30/22 20:00 Temperature 99 F Pulse Rate 79 98 99 Respiratory Rate 18 Blood Pressure 98/62 L Pulse Oximetry 93 Oxygen Delivery 05/31/22 00:00 05/31/22 04:29 05/31/22 04:00 Temperature 97.2 F L Pulse Rate 79 75 79 Respiratory Rate 18 Blood Pressure 94/62 L Pulse Oximetry 97 Oxygen Delivery 05/31/22 10:08 05/31/22 10:08 05/31/22 08:00 Temperature Pulse Rate 92 83 Respiratory Rate 20 Blood Pressure Pulse Oximetry 94 Oxygen Delivery Room Air 05/31/22 12:00 05/31/22 14:00 Temperature 97.9 F Pulse Rate 92 91 Respiratory Rate 20 Blood Pressure 97/52 L Pulse Oximetry 96 Oxygen Delivery Intake/Output Intake/Output: Intake & Output 05/28/22 05/29/22 05/30/22 05/31/22 23:59 23:59 23:59 23:59 Intake Total 1000 1100 730 Output Total 0 Balance 1000 1100 730 Meds/Results
[2022-06-01 05:09] VITALS: BP 100/67; PULSE 86; RESP 18; TEMP 36.6; O2SAT 93
[2022-06-01 06:19] LABS: Hematocrit 30.7 % (37.0-47.0); Hemoglobin 9.4 g/dL (12.0-15.0); Mean Corpuscular HGB Conc 30.6 g/dl (32-36); Mean Corpuscular Hemoglobin 29.3 pg (26-34); Mean Corpuscular Volume 95.6 fl (80-100); Mean Platelet Volume 10.5 fl (7.4-10.4); Platelet Count Result 525 k/mm3 (150-375); Red Blood Count 3.21 M/mm3 (4.2-5.4); Red Cell Distribution Width 15.3 % (11.5-14.5); White Blood Count 9.1 K/mm3 (4.5-10.0)
[2022-06-01 06:35] LABS: Alanine Aminotransferase 17 U/L (6-35); Albumin Level 3.4 g/dL (3.5-5.1); Alkaline Phosphatase 73 U/L (38-126); Anion Gap 5 mmol/L (8-16); Aspartate Amino Transferase 21 U/L (14-36); Bilirubin,Total 0.3 mg/dL (0.2-1.3); Blood Urea Nitrogen 6 mg/dL (7-17); Calcium 8.3 mg/dL (8.4-10.2); Carbon Dioxide 27 mmol/L (22-30); Chloride 104 mmol/L (98-107); Estimated CRCL calculation 59 ml/min; Estimated Glomerular Filt Rate > 60; Glucose 96 mg/dL (65-110); Potassium 3.2 mmol/L (3.4-5.0); Sodium 136 mmol/L (137-145)
[2022-06-01] MEDS: BUDESONIDE RESPULE NEB 0.5 MG/2 ML AMP INHALATION (08:46)
[2022-06-01 08:47] VITALS: PULSE 87; RESP 20
[2022-06-01 08:48] VITALS: O2SAT 90
[2022-06-01 09:00] VITALS: PULSE 92; RESP 20; O2SAT 94
[2022-06-01] MEDS: dilTIAZem HCL CD 180 MG CAP.ER.24H PO (09:04)
[2022-06-01] MEDS: PANTOPRAZOLE 40 MG TABLET PO ×2 (09:04→17:56)
[2022-06-01] MEDS: guaiFENesin 12 HR 600 MG TABCR PO (09:04)
[2022-06-01] MEDS: CYANOCOBALAMIN 1,000 MCG TABLET 1000 MCG PO (09:04)
[2022-06-01] MEDS: ROSUVASTATIN 10 MG TABLET 20 MG PO (09:05)
[2022-06-01] MEDS: APIXABAN 5 MG TABLET 10 MG PO (09:05)
[2022-06-01] MEDS: LORazepam (*CRX) 0.5 MG TABLET PO (09:09)
--- NOTE | 2022-06-01 13:48 | PM.DS ---
DS: Admitting Diagnosis Discharge Date 06/01/2022 Admitting Diagnosis Pulmonary embolism DS: Discharge Diagnosis Discharge Diagnosis (1) Pulmonary embolism on left: Code(s): I26.99 - Other pulmonary embolism without acute cor pulmonale Status: Acute (2) COPD with emphysema: Qualifiers: Emphysema type: unspecified Qualified Code(s): J43.9 - Emphysema, unspecified Code(s): J43.9 - Emphysema, unspecified Status: Acute (3) Supraventricular tachycardia: Code(s): I47.1 - Supraventricular tachycardia Status: Acute (4) Coronary artery calcification: Code(s): I25.10 - Atherosclerotic heart disease of [place] coronary artery without angina pectoris; I25.84 - Coronary atherosclerosis due to calcified coronary lesion Status: Acute (5) History of tobacco abuse: Code(s): Z87.891 - Personal history of nicotine dependence Status: Acute (6) Anemia: Code(s): D64.9 - Anemia, unspecified Status: Acute DS: Summary Hospital Course Reason for hospitalization: Pulmonary embolism Hospital Course: 77-year-old female with history of COPD, SVT, hyperlipidemia and GERD. Patient presents to the ER on 06 14 with reports of left chest/flank pain. Patient had been recently hospitalized for viral infection. Pain worse with inspiration associated with an accompanying cough. Patient does have chronic shortness of breath. Patient described the pain as sharp and shooting that was worse with movement, cough and deep inspiration. CT of the chest revealed pulmonary emboli in the left lower lobe/lingula. Patient was initially started on Lovenox 1 milligram/kilogram b.i.d. then transition to 10 mg of Eliquis b.i.d. Patient was not hypoxic on arrival. Patient regularly on 3 L of oxygen at home and maintained this oxygen requirement. Ultrasound of lower extremities conducted to rule out DVT. Doppler ultrasound negative bilaterally. Patient given analgesics for pleuritic chest pain as well as breathing treatments for COPD. During patient's hospital course left chest/flank pain improved. Patient is hemodynamically stable and ready for discharge. Discussed with patient how to take medication, the risks involved, and when to medica help. Status at Discharge Functional status at discharge: uses cane/walker Overall status at discharge: patient is progressing back to baseline Time Spent with Patient Time attestation: Total time spent providing and/or coordinating discharge services: Exam Narrative: GENERAL: Comfortable, no acute distress HENMT: moist mucous membranes EYES: EOM intact b/l NECK: no lymphadenopathy RESPIRATORY: Distant breath sounds CARDIO: RRR GI: soft, nontender, bowel sounds present SKIN: no rashes EXTREMITIES: no edema, redness or tenderness DS: Data Data Completed and Pending Labs on day of discharge: Labs from last 24 hours 06/01/22 06/01/22 05:47 05:47 WBC 9.1 RBC 3.21 L Hgb 9.4 L Hct 30.7 L MCV 95.6 MCH 29.3 MCHC 30.6 L RDW 15.3 H Plt Count 525 H MPV 10.5 H Sodium 136 L Potassium 3.2 L Chloride 104 Carbon Dioxide 27 Anion Gap 5 L BUN 6 L Creatinine 0.60 L Estim Creat Clear Calc 59 Estimated GFR > 60 Glucose 96 Calcium 8.3 L Total Bilirubin 0.3 AST 21 ALT 17 Alkaline Phosphatase 73 Total Protein 6.0 L Albumin 3.4 L Discharge Plan Discharge Attending physician on discharge: Ramírez Rowell Discharging Clinician: Mercedes Farias Patient Disposition: Home, Self-Care Activity: as tolerated Diet: as tolerated Discharge Instructions: Anticoagulation Medication: Please take medication as prescribed Do not stop medication before talking to your doctor Bleeding risk is increased while taking medications like aspirin or NSAIDs like ibuprofen or naproxen If you fall or hurt herself or hurt your head, call your doctor right away. You may bleed more
[2022-06-01 14:00] VITALS: BP 90/50; PULSE 92; RESP 16; TEMP 36.8; O2SAT 95
--- NOTE | 2022-06-01 14:20 | PCPTNOTE ---
Attempted to see patient for PT, however patient declined due to anticipated discharge.
[2022-06-01] MEDS: POTASSIUM CHLORIDE 20 MEQ PACKET (FOR LIQUID) 40 MEQ PO (14:28)
[2022-06-01] MEDS: ACETAMINOPHEN 325 MG TABLET 650 MG PO (18:32)
== END 2022-06-01 18:50 | disposition home or self-care (01) | DRG 176 ==
LOC: ANHED 03:58 → ANH3MEDSUR 13:55 → ANH3MED 15:20
PROVIDERS: Emergency Medicine; Physician Assistant; Admitting Provider Internal Medicine; Emergency Provider Emergency Medicine; PCP Physician Assistant; Visit Provider Internal Medicine Critical Care Medicine
DX: I26.99 Other pulmonary embolism without acute cor pulmonale (principal); J96.11 Chronic respiratory failure with hypoxia; I47.1 Supraventricular tachycardia; D64.9 Anemia, unspecified; E78.5 Hyperlipidemia, unspecified; G47.33 Obstructive sleep apnea (adult) (pediatric); I25.10 Atherosclerotic heart disease of native coronary artery without angina pectoris; J43.9 Emphysema, unspecified; K21.9 Gastro-esophageal reflux disease without esophagitis; M85.80 Other specified disorders of bone density and structure, unspecified site; Z90.710 Acquired absence of both cervix and uterus; Z87.891 Personal history of nicotine dependence; Z86.16 Personal history of COVID-19; Z79.01 Long term (current) use of anticoagulants; Z20.822 Contact with and (suspected) exposure to COVID-19; Z99.81 Dependence on supplemental oxygen
CPT/HCPCS: 36415; 71275; 74177; 80048; 80053; 81003; 83605; 83690; 83735; 84145; 84484; 85025; 85027; 85610; 85730; 87636; 93005; 93306; 93970; 94640; 96361; 96372; 96374; 96375; 96376; 97161; 99285; A9270; G0378; J1170; J1650; J2270; J7030; Q9967

== ENCOUNTER 2022-10-09 11:42 | Observation (INO) | payer MEDICARE, SELFPAY ==
[2022-10-09] VITALS (8 sets, daily range): BP systolic 97–120; BP diastolic 58–81; PULSE 62–94; RESP 16–21; TEMP 36.5–38.2; O2SAT 96–100; BMI 22.1
--- NOTE | ~2022-10-09 | XR_ITS ---
Lumbosacral Spine: AP and lateral views Clinical History: Pain Findings: There are compression fractures of L1, L2, L3, likely without significant change since prio r MR dated 06/23/2021. No subluxation evident. Facet joint degenerative change present throughout the lumbar spine. The intervertebral disc spaces are preserved. The sacroiliac joints are normally outl ined. Impression: Compression fractures of L1, L2, L3, likely without significant change since 06/23/2021. Facet joint degenerative changes. Reviewed, dictated and finalized at location M. Impression: Compression fractures of L1, L2, L3, likely without significant change since . Facet joint degenerative changes.
--- NOTE | ~2022-10-09 | MR_ITS ---
MRI of the thoracic spine Clinical History: Back pain, leukocytosis Technique: Axial T2-weighted and gradient images, and sagittal T1-weighted, T2-weighted, and STIR supriya ges were acquired. Following intravenous administration of 10 cc MultiHance gadolinium, T1-weighted f at-sat imaging was performed in the axial and sagittal planes. Findings: Chronic compression deformities of T5 and T8 are present, with loss of height, no marrow ed cari. No acute fracture or sublocation seen in the thoracic spine. No bone marrow signal abnormality s een in the thoracic spine itself. Acute compression fracture of L2 noted. No significant disc bulge or herniation seen at any thoracic level. No spinal canal stenosis or cord compression. No abnormal signal seen in the spinal cord itself. No epidural mass or collection seen. Paravertebral soft tissues are unremarkable. No abnormal postcontrast enhancement seen in the thoracic spine itsel f. Impression: Chronic compression deformities of T5 and T8. No acute abnormality in the thoracic spine. Reviewed, dictated and finalized at location . Impression: Chronic compression deformities of T5 and T8. No acute abnormality in the thoracic spine.
--- NOTE | ~2022-10-09 | MR_ITS ---
MRI of the lumbar spine Clinical History: Back pain Technique: Axial T2-weighted images, and sagittal T1-weighted, T2-weighted, and T2 fat-sat images wer e acquired. Following intravenous administration of 10 cc MultiHance gadolinium, T1-weighted fat-sat imaging was performed in the axial and sagittal planes. COMPARISON: 06/23/2021 Findings: There is acute compression fracture of L2, with further loss of height as compared to prior exam, with T1 hypointense fracture line and diffuse marrow edema. There are stable chronic compressi on fracture deformities of L1, L3, and L4. No other marrow signal abnormality identified. At L1-L2, there is mild facet arthropathy. No significant disc bulge or herniation. No spinal canal s tenosis. There is moderate to advanced bilateral neural foraminal narrowing. At L2-L3, facet arthropathy and minimal retropulsion result in lateral recess stenosis bilaterally. T here is severe bilateral neural foraminal narrowing. At L3-L4, disc bulge and facet arthropathy are present. There is severe bilateral neural foraminal na rrowing, left worse than right. At L4-L5, disc bulge and facet arthropathy result in severe thecal sac compression/spinal canal steno sis. There is severe left neural foraminal narrowing and moderate to severe right neural foraminal na rrowing. At L5-S1, there is disc bulge and facet arthropathy. No janeth spinal canal stenosis. There is moderat e bilateral neural foraminal There is enhancement at the area of compression fracture, but no other abnormal postcontrast enhancem ent identified. Impression: Acute moderate compression fracture of L2, with progressive loss of height and marrow edema, as detai led above. Chronic compression fractures of L1, L3, L4. Advanced degenerative spondylosis, with multilevel severe neural foraminal narrowing and severe theca l sac compression at L4-L5. Please see details above. Reviewed, dictated and finalized at location M. Impression: Acute moderate compression fracture of L2, with progressive loss of height and marrow edema, as detailed above. Chronic compression fractures of L1, L3, L4. Advanced degenerative spondylosis, with multilevel severe neural foraminal narr owing and severe thecal sac compression at L4-L5. Please see details above.
--- NOTE | ~2022-10-09 | XR_ITS ---
Clinical Indication: Cough AP and lateral views of the chest: Comparison: 05/21/2022 Findings: The lungs are clear, without evidence of focal consolidation or pleural effusion. Probable COPD and chronic interstitial change. Cardiomediastinal silhouette is within normal limits. Kyphosis of the thoracic spine noted with mild compression deformity of what is probably T5.. Impression: COPD and chronic interstitial change. Mild compression of what is probably T5 with kyphosis. Reviewed, dictated and finalized at location M. Impression: COPD and chronic interstitial change. Mild compression of what is probably T5 with kyphosis.
[2022-10-09 12:20] LABS: Basophils Absolute Auto 0.1 K/mm3 (0.0-0.1); Basophils Percent Auto 0.3 % (0.2-1.2); Hematocrit 33.9 % (37.0-47.0); Hemoglobin 10.5 g/dL (12.0-15.0); Immature Granulocyte Absolute 0.28 K/mm3 (0.00-0.031); Immature Granulocyte Percent A 1.1 % (0-0.5); Lymphocytes Absolute Auto 2.87 K/mm3 (0.9-3.2); Lymphocytes Percent Auto 11.1 % (18.3-44.2); Mean Corpuscular Hemoglobin 27.1 pg (26-34); Mean Corpuscular Volume 87.6 fl (80-100); Mean Platelet Volume 11.1 fl (7.4-10.4); Monocytes Absolute Auto 1.3 K/mm3 (0.1-0.6); Neutrophils Absolute Auto 21.3 K/mm3 (1.3-6.7); Neutrophils Percent Auto 82.5 % (45.5-73.1); Platelet Count Result 331 k/mm3 (150-375); Red Blood Count 3.87 M/mm3 (4.2-5.4); Red Cell Distribution Width 14.8 % (11.5-14.5); White Blood Count 25.9 K/mm3 (4.5-10.0)
[2022-10-09 12:31] LABS: Alanine Aminotransferase 17 U/L (6-35); Albumin Level 4.5 g/dL (3.5-5.1); Alkaline Phosphatase 104 U/L (38-126); Anion Gap 6 mmol/L (8-16); Aspartate Amino Transferase 26 U/L (14-36); Bilirubin,Total 0.7 mg/dL (0.2-1.3); Blood Urea Nitrogen 11 mg/dL (7-17); Calcium 9.1 mg/dL (8.4-10.2); Carbon Dioxide 29 mmol/L (22-30); Chloride 103 mmol/L (98-107); Estimated CRCL calculation 45 ml/min; Estimated Glomerular Filt Rate > 60; Glucose 97 mg/dL (65-110); Sodium 138 mmol/L (137-145)
[2022-10-09 12:57] LABS: Platelet Estimate Adequate (Adequate)
[2022-10-09 12:58] LABS: Anisocytosis 1+ (NORMAL); Schistocytes None Seen (NORMAL)
--- NOTE | 2022-10-09 13:57 | ED.URI ---
HPI - URI/Sore Throat General Chief Complaint: Upper Respiratory Infection Stated Complaint: back pain Time Seen by Provider: 10/09/22 13:50 History of Present Illness HPI Narrative: Pt presents with runny nose and body aches and fever of 101 today. Pt denies urinary symptoms but has history of UTI's. Pt denies vomiting or diarrhea. Related Data Home Medications Medication Instructions Recorded Confirmed diltiazem HCl 180 mg 180 mg PO DAILY 06/20/21 10/09/22 capsule,extended release 24 hr (Cardizem CD) albuterol sulfate 2.5 mg/3 mL 2.5 mg inhalation QID PRN 10/09/22 10/09/22 (0.083 %) solution for nebulization shortness of breath or wheezing pantoprazole 40 mg tablet,delayed 40 mg PO DAILY 10/09/22 10/09/22 release Allergies Allergy/AdvReac Type Severity Reaction Status Date / Time No Known Allergies Allergy Verified 10/09/22 18:13 Review of Systems Review of Systems: All systems reviewed & are unremarkable except as noted in HPI and below PMFSH Past Medical History Medical History Abnormal nuclear stress test (03/2022) Cardiac catheterization on 04/02/2022 showed preserved left ventricular systolic function with minimal atherosclerosis of the proximal LAD and the proximal and mid RCA. Chronic respiratory failure with hypoxia, on home oxygen therapy COPD with emphysema Coronary artery calcification Calcifications noted on chest CT in October 2019. Echocardiogram showed normal left ventricular systolic function with an ejection fraction of 65 to 70% as well as grade 1 diastolic dysfunction. Gastroesophageal reflux disease History of tobacco abuse 45 pack year smoking history, quit in October 2019. Lumbar compression fracture S[place]RARIO (obstructive sleep apnea) Osteopenia Supraventricular tachycardia Surgical History Surgical History History of bladder suspension procedure History of breast augmentation History of cardiac catheterization (03/2022) History of partial hysterectomy Family History Family History Mother Family history of heart disease in male family member before age 55 Cerebrovascular accident Heart attack Sibling Family history of heart disease in male family member before age 55 Heart attack Cerebrovascular accident Transitional cell carcinoma Father Cerebrovascular accident Social History Social History Social History: Surrogate decision maker: Nancy Keith, granddaughter. Code status: dnr. Smoking packs per day: 1 Smoking cigarettes per day: 20.0 Years smoked: 60 Smoking pack-years: 60.00 Smoking status: Former smoker Tobacco type: cigarettes Second hand tobacco smoke exposure: No Smoking end date: 06/24/19 Additional smoking assessment comments: Smoked .75 packs per day but up to 1.5 - 2 packs per day for over a year. Alcohol intake: never Substance use: never Substance use type: does not use Lack of Transportation: No Lack of Food: Never True Current Housing: I Have Housing Concerned About Future Housing: No Difficulty Paying Gas/Electric Bills: No Difficulty Paying for Meds: No Currently Unemployed: No Education: High School Diploma/GED Difficulty w/ Childcare or Family Care: No Living arrangements: with family Additional living arrangements comments: Lives alone, son Valentino lives 1 house away. Occupation/Education: retired Additional occupation/education comments: Worked 40 years [employer], , raised 8 children on her own. Spiritual care concerns: No Exam Const: General: healthy appearing and no acute distress Nutritional Appearance: well nourished Orientation/consciousness: patient oriented x3 Limitations: no limitations HENMT: Face/Nose/Sinus: Nasal discharge present Mouth: Yes
[2022-10-09] MEDS: SODIUM CHLORIDE 0.9% IV 1,000 ML 999 ML IV CONT (14:14)
[2022-10-09] MEDS: KETOROLAC 15 MG/ML VIAL (*BKC) IV PUSH (14:14)
[2022-10-09 14:42] LABS: Lactic Acid Reflex 0.8 mmol/L (0.7-2.0)
[2022-10-09 14:43] LABS: INR 1.2; Partial Thromboplastin Time 31.2 SECONDS (22.3-36.8); Prothrombin Time 14.7 Seconds (11.1-14.7)
[2022-10-09 15:00] LABS: CRP 5.1 mg/dL (<1.0)
[2022-10-09 15:07] LABS: Influenza A QL RT-PCR Negative (Negative); Influenza B QL RT-PCR Negative (Negative); SARS-CoV-2 RNA PCR Negative
[2022-10-09 16:05] LABS: Appearance Urine Cloudy (Clear); Bacteria Urine 4+ /hpf; Bilirubin Urine Negative (Negative); Blood Urine Negative (Negative); Color Urine Yellow (Yellow); Glucose Urine UA Negative (Negative); Ketones Urine Negative (Negative); Leukocyte Esterase Ur 2+ LEU/UL (Negative); Nitrate Urine Positive (Negative); Non Pathogenic Casts 0-2; Protein Urine Negative (Negative); RBC Urine 0-2 /hpf (0-2); Specific Grav Ur 1.016 (1.001-1.035); Squamous Epithelial Cell Urine Few /hpf (Few); Urobilinogen Urine 0.2 mg/dL (<2.0); WBC Urine 51-100 /hpf
[2022-10-09 16:16] LABS: Add Urine Microscopic? YES
--- NOTE | 2022-10-09 17:09 | PC.NURSE ---
this RN called dietary and ordered dinner tray for pt at this time
[2022-10-09] MEDS: CEFEPIME 1 GM/NS 50 ML 1 GM/50 ML BAG IVPB (17:17)
--- NOTE | 2022-10-09 17:45 | ADMGEN ---
This patient, Mary Kate Keith, was admitted to Medical Room 249-01. Patient/family oriented to hospital policies and general routines including ID bracelet, bed and alarms, visiting hours, pain management, procedures, bathroom and other care routines, personal items, smoking policy, room service/diet, and visiting hours. Information on how to activate the Rapid Response Team has been discussed. Patient/Family are encouraged to report perceived risks to care and to ask questions if they do not understand what they are told or what they should do.
--- NOTE | 2022-10-09 18:00 | PM.IMHP ---
H&P: HPI History of Present Illness Date/Time: 10/09/22 18:00 Chief Complaint: Cough, fever, low back pain. Narrative: This is a 77-year-old female with COPD, chronic respiratory failure on oxygen, pulmonary embolism, anemia, hypertension, GERD, and history of urinary tract infections who presented to the emergency department via EMS from home for evaluation of cough, fever, and low back pain. Patient provides the following history. She has not felt well for approximately 3 weeks and her initial symptoms were that of a runny nose, cough, and body aches. She has also had some generalized low back discomfort which started a couple of weeks ago after she lifted up the side of a twin bed and heard a ?pop? in her back. She has been taking ibuprofen, acetaminophen, and using hot and cold packs without a whole lot of relief. Last night she developed a fever temperature on arrival to the ED today was 100.8? F. Workup in the ED was significant for white blood cell count of 25.9, CRP 5.1, and a grossly abnormal urinalysis which was nitrate positive with 2+ leukocyte esterase, 51 to 100 WBCs, and 4+ bacteria. She tested negative for influenza and COVID. Chest and lumbar spine x-rays were without acute abnormalities but did note old compression fractures without obvious significant change from 06/23/2021. Regarding the abnormal urinalysis she does endorse strong smelling urine and increasing urinary frequency but she denies dysuria. She was given a dose of cefepime due to history of ESBL E coli UTI and she is being admitted in this setting. Review of Systems Review of Systems: Twelve systems were reviewed. No urinary retention or bowel incontinence. She denies saddle anesthesia. No focal weakness or paresthesias in the legs. Except as documented, all other systems were reviewed and are negative. [facility] Past Medical History Medical History Abnormal nuclear stress test (03/2022) Cardiac catheterization on 04/02/2022 showed preserved left ventricular systolic function with minimal atherosclerosis of the proximal LAD and the proximal and mid RCA. Chronic anticoagulation Chronic obstructive pulmonary disease Chronic respiratory failure with hypoxia, on home oxygen therapy COPD with emphysema Coronary artery calcification Calcifications noted on chest CT in October 2019. Echocardiogram showed normal left ventricular systolic function with an ejection fraction of 65 to 70% as well as grade 1 diastolic dysfunction. Gastroesophageal reflux disease History of tobacco abuse 45 pack year smoking history, quit in October 2019. 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 Supraventricular tachycardia Surgical History Surgical History History of bladder suspension procedure History of breast augmentation History of cardiac catheterization (03/2022) History of partial hysterectomy Family History Family History Mother Family history of heart disease in male family member before age 55 Cerebrovascular accident Heart attack Sibling Family history of heart disease in male family member before age 55 Heart attack Cerebrovascular accident Transitional cell carcinoma Father Cerebrovascular accident Social History Social History (Updated 10/11/22 @ 00:06 by Essie Hall PA-C) Social History: Surrogate decision maker: Nancy Moss, granddaughter. Code status: Full code. Smoking packs per day: 1 Smoking cigarettes per day: 20.0 Years smoked: 60 Smoking pack-years: 60.00 Smoking status: Former smoker Tobacco type: cigarettes Second hand tobacco smoke exposure: No Smoking end date: 06/24/19 Additional smoking assessment comments: Smoked .75 packs per day but up to 1.5 - 2 packs per day for
[2022-10-09] MEDS: ERTAPENEM 1 GM/NS 50 ML 1 GM/50 ML BAG IVPB (21:19)
[2022-10-09] MEDS: APIXABAN 5 MG TABLET PO (21:19)
[2022-10-10] MEDS: ACETAMINOPHEN 325 MG TABLET 650 MG PO (01:30)
[2022-10-10 05:33] LABS: Hematocrit 29.9 % (37.0-47.0); Hemoglobin 9.1 g/dL (12.0-15.0); Mean Corpuscular HGB Conc 30.4 g/dl (32-36); Mean Corpuscular Volume 88.7 fl (80-100); Mean Platelet Volume 11.5 fl (7.4-10.4); Platelet Count Result 284 k/mm3 (150-375); Red Blood Count 3.37 M/mm3 (4.2-5.4); Red Cell Distribution Width 14.9 % (11.5-14.5); White Blood Count 13.8 K/mm3 (4.5-10.0)
[2022-10-10 05:36] LABS: Anion Gap 3 mmol/L (8-16); Blood Urea Nitrogen 13 mg/dL (7-17); Calcium 8.5 mg/dL (8.4-10.2); Carbon Dioxide 27 mmol/L (22-30); Chloride 107 mmol/L (98-107); Estimated CRCL calculation 51 ml/min; Estimated Glomerular Filt Rate > 60; Glucose 94 mg/dL (65-110); Magnesium 2.3 mg/dL (1.6-2.3); Sodium 137 mmol/L (137-145)
[2022-10-10 05:44] VITALS: BP 110/52; PULSE 66; RESP 16; TEMP 36.6; O2SAT 100
[2022-10-10 06:04] LABS: Erythrocyte Sedimentation Rate 88 mm/hr (0-20)
--- NOTE | 2022-10-10 08:28 | PM.IMPN ---
Progress Note: A&P Assessment and Plan (1) Urinary tract infection: Qualifiers: Urinary tract infection type: acute pyelonephritis Qualified Code(s): N10 - Acute pyelonephritis Code(s): N39.0 - Urinary tract infection, site not specified Status: Acute Assessment and Plan: UA +nitrates, 2+ luekocytes, 51-100 WBC with suprapubic tenderness noted on exam. Patient presented with c/o fever suggesting acute pyelonephritis. She has h/o ESBL UTI sensitive to carbepenems. She has h/o frequent UTIs and has seen Urology in the past. Last UTI >6 months ago, she states. Continue Invanz given history of ESBL Klebsiella pneumoniae UTI, pending urine culture. (2) Compression fracture of lumbar vertebra: Code(s): S32.000A - Wedge compression fracture of unspecified lumbar vertebra, initial encounter for closed fracture Status: Acute Assessment and Plan: Non-traumatic. Acute and chronic compression fractures. Significant pain with palpation in the low thoracic and upper lumbar vertebrae and in the paraspinous muscles surrounding the is areas.? X-ray shows old compression fractures without significant change.? MRI of the thoracic and lumbar spine show acute moderate compression fracture L2 and chronic compression fractures to T5, T8, L1, L3, & L4.? Continue pain control with baclofen 5 mg Q8 PRN, [place] 5/325 mg PO Q4 hours PRN and IV dilaudid PRN for breakthrough pain.? Neurosurgery consulted for evaluation and recommendations.? PT/OT evaluation after recommendations from neurosurgery. Check vitamin D 25-OH. (3) Compression fracture of thoracic vertebra: Qualifiers: Encounter type: initial encounter Thoracic vertebra fracture level: unspecified thoracic vertebra Qualified Code(s): S22.000A - Wedge compression fracture of unspecified thoracic vertebra, initial encounter for closed fracture Code(s): S22.000A - Wedge compression fracture of unspecified thoracic vertebra, initial encounter for closed fracture Status: Chronic Assessment and Plan: Non-traumatic. As above. (4) Back pain: Qualifiers: Back pain location: low back pain Chronicity: acute Back pain laterality: midline Sciatica presence: without sciatica Qualified Code(s): M54.50 - Low back pain, unspecified Code(s): M54.9 - Dorsalgia, unspecified Status: Acute Assessment and Plan: Pain control as above. (5) Chronic obstructive pulmonary disease: Qualifiers: COPD type: unspecified COPD Qualified Code(s): J44.9 - Chronic obstructive pulmonary disease, unspecified Code(s): J44.9 - Chronic obstructive pulmonary disease, unspecified Status: Acute Assessment and Plan: Acute exacerbation of chronic disease. She reports increasing SOB with exertion, URI symptoms, cough with increasing sputum production and change in color. Add Azithromycin 500 mg PO Q3 days. Continue arformoterol nebs (patient to bring from home) and budesonide nebs BID. PRN albuterol and ipratroprium QID Will hold off on steroids at this time and reevaluate respiratory status in the morning. (6) Chronic respiratory failure with hypoxia: Code(s): J96.11 - Chronic respiratory failure with hypoxia Status: Chronic Assessment and Plan: She wears 3L O2 daily and is currently at baseline oxygen requirement. Monitor respiratory status. (7) Chronic anticoagulation: Code(s): Z79.01 - superintendent terminal (current) use of anticoagulants Status: Chronic Assessment and Plan: Continue apixaban which she is taking for history of PE in May 2022. (8) Osteoporosis: Qualifiers: Osteoporosis type: age-related Presence of current pathological fracture: with current pathological fracture Encounter type: initial encounter Qualified Code(s): M80.00XA - Age-related osteoporosis with current pathological fracture, unspecified sit
[2022-10-10] MEDS: BUDESONIDE RESPULE NEB 0.5 MG/2 ML AMP INHALATION (08:35)
[2022-10-10 08:36] VITALS: PULSE 86; RESP 18; O2SAT 98
[2022-10-10] MEDS: PANTOPRAZOLE 40 MG TABLET PO (08:40)
[2022-10-10] MEDS: ROSUVASTATIN 10 MG TABLET 20 MG PO (08:40)
[2022-10-10] MEDS: APIXABAN 5 MG TABLET PO ×2 (08:40→20:51)
[2022-10-10] MEDS: CYANOCOBALAMIN 1,000 MCG TABLET 1000 MCG PO (08:40)
[2022-10-10] MEDS: dilTIAZem HCL CD 180 MG CAP.ER.24H PO (08:40)
[2022-10-10 08:43] VITALS: PULSE 87; RESP 18
[2022-10-10] MEDS: HYDROcodone/acetaminophen (*CRX) 5-325 MG TABLET 1 TAB PO ×2 (14:24→20:51)
[2022-10-10 14:26] VITALS: BP 106/60; PULSE 100; RESP 18; TEMP 36.2; O2SAT 97
[2022-10-10] MEDS: AZITHROMYCIN 250 MG TABLET 500 MG PO (15:19)
[2022-10-10 20:00] VITALS: PULSE 78; RESP 16; O2SAT 99
[2022-10-10] MEDS: ERTAPENEM 1 GM/NS 50 ML 1 GM/50 ML BAG IVPB (20:51)
[2022-10-10 21:30] VITALS: BP 110/65; PULSE 78; RESP 16; TEMP 37; O2SAT 99
[2022-10-11] VITALS (15 sets, daily range): BP systolic 90–123; BP diastolic 62–68; PULSE 69–99; RESP 16–20; TEMP 36.7–37; O2SAT 96–99
[2022-10-11] MEDS: HYDROcodone/acetaminophen (*CRX) 5-325 MG TABLET 1 TAB PO ×3 (05:34→20:53)
[2022-10-11 05:49] LABS: Basophils Absolute Auto 0.1 K/mm3 (0.0-0.1); Basophils Percent Auto 0.8 % (0.2-1.2); Eosinophils Absolute Auto 0.4 K/mm3 (0-0.3); Eosinophils Percent Auto 5.2 % (0-4.4); Hematocrit 29.9 % (37.0-47.0); Immature Granulocyte Absolute 0.04 K/mm3 (0.00-0.031); Immature Granulocyte Percent A 0.5 % (0-0.5); Lymphocytes Absolute Auto 2.14 K/mm3 (0.9-3.2); Lymphocytes Percent Auto 25.2 % (18.3-44.2); Mean Corpuscular HGB Conc 30.1 g/dl (32-36); Mean Corpuscular Hemoglobin 27.4 pg (26-34); Mean Corpuscular Volume 90.9 fl (80-100); Mean Platelet Volume 11.1 fl (7.4-10.4); Monocytes Absolute Auto 0.6 K/mm3 (0.1-0.6); Monocytes Percent Auto 7.5 % (2.6-8.5); Neutrophils Absolute Auto 5.2 K/mm3 (1.3-6.7); Neutrophils Percent Auto 60.8 % (45.5-73.1); Platelet Count Result 272 k/mm3 (150-375); Red Blood Count 3.29 M/mm3 (4.2-5.4); Red Cell Distribution Width 14.9 % (11.5-14.5); White Blood Count 8.5 K/mm3 (4.5-10.0)
[2022-10-11 06:00] LABS: Alanine Aminotransferase 15 U/L (6-35); Albumin Level 3.5 g/dL (3.5-5.1); Alkaline Phosphatase 86 U/L (38-126); Anion Gap 1 mmol/L (8-16); Aspartate Amino Transferase 21 U/L (14-36); Bilirubin,Total 0.4 mg/dL (0.2-1.3); Blood Urea Nitrogen 11 mg/dL (7-17); Calcium 8.3 mg/dL (8.4-10.2); Carbon Dioxide 31 mmol/L (22-30); Chloride 106 mmol/L (98-107); Estimated CRCL calculation 51 ml/min; Estimated Glomerular Filt Rate > 60; Glucose 92 mg/dL (65-110); Potassium 3.8 mmol/L (3.4-5.0); Sodium 138 mmol/L (137-145)
[2022-10-11 07:55] LABS: Vitamin D 25 Hydroxy 15.2 ng/mL
[2022-10-11] MEDS: BUDESONIDE RESPULE NEB 0.5 MG/2 ML AMP INHALATION ×2 (08:32→19:33)
--- NOTE | 2022-10-11 09:01 | PM.IMPN ---
Progress Note: A&P Assessment and Plan (1) Urinary tract infection: Qualifiers: Urinary tract infection type: acute pyelonephritis Qualified Code(s): N10 - Acute pyelonephritis Code(s): N39.0 - Urinary tract infection, site not specified Status: Acute Assessment and Plan: UA +nitrates, 2+ luekocytes, 51-100 WBC with suprapubic tenderness noted on exam. Patient presented with c/o fever suggesting acute pyelonephritis. She has h/o ESBL UTI sensitive to carbepenems. She has h/o frequent UTIs and has seen Urology in the past. Last UTI >6 months ago, she states. Continue Invanz given history of ESBL Klebsiella pneumoniae UTI, urine culture with ESBL sensitive to levaquin. 10/11 change to Levaquin 750 mg PO daily x 5 days for total 7 day course. (2) Compression fracture of lumbar vertebra: Code(s): S32.000A - Wedge compression fracture of unspecified lumbar vertebra, initial encounter for closed fracture Status: Acute Assessment and Plan: Non-traumatic. Acute and chronic compression fractures. Significant pain with palpation in the low thoracic and upper lumbar vertebrae and in the paraspinous muscles surrounding the is areas.? X-ray shows old compression fractures without significant change.? MRI of the thoracic and lumbar spine show acute moderate compression fracture L2 and chronic compression fractures to T5, T8, L1, L3, & L4.? Continue pain control with baclofen 5 mg Q8 PRN, [place] 5/325 mg PO Q4 hours PRN and IV dilaudid PRN for breakthrough pain.? Neurosurgery consulted for evaluation and recommendations.? PT/OT evaluation after recommendations from neurosurgery. (3) Compression fracture of thoracic vertebra: Qualifiers: Encounter type: initial encounter Thoracic vertebra fracture level: unspecified thoracic vertebra Qualified Code(s): S22.000A - Wedge compression fracture of unspecified thoracic vertebra, initial encounter for closed fracture Code(s): S22.000A - Wedge compression fracture of unspecified thoracic vertebra, initial encounter for closed fracture Status: Chronic Assessment and Plan: Non-traumatic. As above. (4) Back pain: Qualifiers: Back pain laterality: midline Back pain location: low back pain Chronicity: acute Sciatica presence: without sciatica Qualified Code(s): M54.50 - Low back pain, unspecified Code(s): M54.9 - Dorsalgia, unspecified Status: Acute Assessment and Plan: Pain control as above. (5) Chronic obstructive pulmonary disease: Qualifiers: COPD type: unspecified COPD Qualified Code(s): J44.9 - Chronic obstructive pulmonary disease, unspecified Code(s): J44.9 - Chronic obstructive pulmonary disease, unspecified Status: Acute Assessment and Plan: Acute exacerbation of chronic disease. She reports increasing SOB with exertion, URI symptoms, cough with increasing sputum production and change in color. 10/10 Added Azithromycin 500 mg PO Q3 days. Stopped 10/11 when changed to Levaquin as this will cover urine and lung microbes. Continue arformoterol nebs (patient to bring from home) and budesonide nebs BID. PRN albuterol and ipratroprium QID Will hold off on systemic steroids at this time due to UTI and known osteoporosis. Will treat with budesonide nebs BID scheduled for now. 10/11 lung sounds diminished but no wheezing appreciated. (6) Chronic respiratory failure with hypoxia: Code(s): J96.11 - Chronic respiratory failure with hypoxia Status: Chronic Assessment and Plan: She wears 3L O2 daily and is currently at baseline oxygen requirement. Monitor respiratory status. (7) Chronic anticoagulation: Code(s): Z79.01 - terminal system operator (current) use of anticoagulants Status: Chronic Assessment and Plan: Continue apixaban which she is taking for history of PE in May 2022. (8) Osteoporo
[2022-10-11] MEDS: ROSUVASTATIN 10 MG TABLET 20 MG PO (09:33)
[2022-10-11] MEDS: CYANOCOBALAMIN 1,000 MCG TABLET 1000 MCG PO (09:33)
[2022-10-11] MEDS: PANTOPRAZOLE 40 MG TABLET PO (09:33)
[2022-10-11] MEDS: APIXABAN 5 MG TABLET PO ×2 (09:33→20:53)
[2022-10-11] MEDS: CHOLECALCIFEROL 1,000 UNITS TABLET 2000 UNITS PO (09:33)
[2022-10-11] MEDS: BENZOCAINE/MENTHOL (*BKC) 18 EA LOZENGE 1 LOZENGE PO ×2 (09:51→20:54)
--- NOTE | 2022-10-11 12:08 | PC.NURSE ---
On 10/11/22, the student, [Megan Kebede], provided care and completed [employer] documentation on this patient. I have reviewed the student's documentation and agree with the findings.
[2022-10-11] MEDS: levoFLOXacin 750 MG TABLET PO (13:01)
[2022-10-11] MEDS: IPRATROPIUM BR 0.02% INH SOLN 0.5 MG/2.5 ML VIAL INHALATION (15:34)
[2022-10-11] MEDS: ALBUTEROL SULFATE NEB 2.5 MG/3 ML INH INHALATION (15:34)
--- NOTE | 2022-10-11 16:42 | WPDNEUROSGCN ---
Assessment and Plan Assessment and plan (1) Osteoporosis: Qualifiers: Osteoporosis type: age-related Presence of current pathological fracture: with current pathological fracture Encounter type: initial encounter Qualified Code(s): M80.00XA - Age-related osteoporosis with current pathological fracture, unspecified site, initial encounter for fracture Code(s): M81.0 - Age-related osteoporosis without current pathological fracture Status: Chronic (2) Compression fracture of thoracic vertebra: Qualifiers: Encounter type: initial encounter Thoracic vertebra fracture level: unspecified thoracic vertebra Qualified Code(s): S22.000A - Wedge compression fracture of unspecified thoracic vertebra, initial encounter for closed fracture Code(s): S22.000A - Wedge compression fracture of unspecified thoracic vertebra, initial encounter for closed fracture Status: Chronic Plan HPI: This is a 77-year-old lady with multiple comorbidities admitted to the hospital for a UTI. She also says she has really bad back pain that she has had for 3 weeks since trying to move a twin bed. She heard a pop and has had pain since. Pain is lumbar region. It was really bad at 1st and now still quite bad 6/10 Fluctuates it is difficulty walking. pain does not radiate down the legs. No weakness. patient says she had a bone density scan 20 years ago that showed osteoporosis. She says she currently is not being treated for osteoporosis medically. Assessment/plan: Osteoporosis, L2 compression fracture Patient has multiple compression fractures on imaging however the L2 1 cm new both on MRI as well as when compared to a CT of the pelvis done a few months ago. This is likely the cause of her back pain, in addition to her UTI symptoms perhaps. -no neurosurgical intervention necessary for this - recommend physical therapy for activity as tolerated -recommend a lumbosacral corset to wear for comfort as needed - patient can be considered for a pain management referral for kyphoplasty - Patient should be considered for medical management of osteoporosis by her primary care physician - no follow-up necessary with Neurosurgery [facility] Past Medical History Medical History Abnormal nuclear stress test (03/2022) Cardiac catheterization on 04/02/2022 showed preserved left ventricular systolic function with minimal atherosclerosis of the proximal LAD and the proximal and mid RCA. Chronic anticoagulation Chronic obstructive pulmonary disease Chronic respiratory failure with hypoxia, on home oxygen therapy COPD with emphysema Coronary artery calcification Calcifications noted on chest CT in October 2019. Echocardiogram showed normal left ventricular systolic function with an ejection fraction of 65 to 70% as well as grade 1 diastolic dysfunction. Gastroesophageal reflux disease History of tobacco abuse 45 pack year smoking history, quit in October 2019. 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 Supraventricular tachycardia Surgical History Surgical History History of bladder suspension procedure History of breast augmentation History of cardiac catheterization (03/2022) History of partial hysterectomy Family History Family History Mother Family history of heart disease in male family member before age 55 Cerebrovascular accident Heart attack Sibling Family history of heart disease in male family member before age 55 Heart attack Cerebrovascular accident Transitional cell carcinoma Father Cerebrovascular accident Social History Social History (Updated 10/11/22 @ 00:06 by Essie Hall PA-C) Social History: Surrogate decision maker: cindy Vogel
[2022-10-12] MEDS: HYDROcodone/acetaminophen (*CRX) 5-325 MG TABLET 1 TAB PO (05:52)
[2022-10-12] MEDS: ALENDRONATE SODIUM 70 MG TABLET PO (05:52)
[2022-10-12] MEDS: BENZOCAINE/MENTHOL (*BKC) 18 EA LOZENGE 1 LOZENGE PO ×2 (05:52→08:25)
[2022-10-12 06:15] VITALS: BP 120/65; PULSE 83; RESP 14; TEMP 37.2; O2SAT 98
[2022-10-12] MEDS: APIXABAN 5 MG TABLET PO (08:26)
[2022-10-12] MEDS: BACLOFEN 5 MG TABLET PO (08:26)
[2022-10-12] MEDS: CHOLECALCIFEROL 1,000 UNITS TABLET 2000 UNITS PO (08:26)
[2022-10-12] MEDS: CYANOCOBALAMIN 1,000 MCG TABLET 1000 MCG PO (08:26)
[2022-10-12] MEDS: PANTOPRAZOLE 40 MG TABLET PO (08:27)
[2022-10-12] MEDS: levoFLOXacin 750 MG TABLET PO (08:27)
[2022-10-12] MEDS: ROSUVASTATIN 10 MG TABLET 20 MG PO (08:27)
[2022-10-12] MEDS: dilTIAZem HCL CD 180 MG CAP.ER.24H PO (08:27)
[2022-10-12 08:30] VITALS: O2SAT 94
[2022-10-12] MEDS: BUDESONIDE RESPULE NEB 0.5 MG/2 ML AMP INHALATION (08:30)
[2022-10-12 08:33] VITALS: PULSE 88; RESP 20; O2SAT 96
[2022-10-12 08:45] VITALS: PULSE 91; RESP 20
--- NOTE | 2022-10-12 08:52 | PM.IMPN ---
Progress Note: A&P Assessment and Plan (1) Urinary tract infection: Qualifiers: Urinary tract infection type: acute pyelonephritis Qualified Code(s): N10 - Acute pyelonephritis Code(s): N39.0 - Urinary tract infection, site not specified Status: Acute Assessment and Plan: UA +nitrates, 2+ luekocytes, 51-100 WBC with suprapubic tenderness noted on exam. Patient presented with c/o fever suggesting acute pyelonephritis. She has h/o ESBL UTI sensitive to carbepenems. She has h/o frequent UTIs and has seen Urology in the past. Last UTI >6 months ago, she states. Continue Invanz given history of ESBL Klebsiella pneumoniae UTI, urine culture with ESBL sensitive to levaquin. 10/11 change to Levaquin 750 mg PO daily x 5 days for total 7 day course. (2) Compression fracture of lumbar vertebra: Code(s): S32.000A - Wedge compression fracture of unspecified lumbar vertebra, initial encounter for closed fracture Status: Acute Assessment and Plan: Non-traumatic. Acute and chronic compression fractures. Significant pain with palpation in the low thoracic and upper lumbar vertebrae and in the paraspinous muscles surrounding the is areas.? X-ray shows old compression fractures without significant change.? MRI of the thoracic and lumbar spine show acute moderate compression fracture L2 and chronic compression fractures to T5, T8, L1, L3, & L4.? Continue pain control with baclofen 5 mg Q8 PRN, [place] 5/325 mg PO Q4 hours PRN and IV dilaudid PRN for breakthrough pain.? Neurosurgery consulted for evaluation and recommendations.? PT/OT evaluation after recommendations from neurosurgery. (3) Compression fracture of thoracic vertebra: Qualifiers: Encounter type: initial encounter Thoracic vertebra fracture level: unspecified thoracic vertebra Qualified Code(s): S22.000A - Wedge compression fracture of unspecified thoracic vertebra, initial encounter for closed fracture Code(s): S22.000A - Wedge compression fracture of unspecified thoracic vertebra, initial encounter for closed fracture Status: Chronic Assessment and Plan: Non-traumatic. As above. (4) Back pain: Qualifiers: Back pain location: low back pain Chronicity: acute Back pain laterality: midline Sciatica presence: without sciatica Qualified Code(s): M54.50 - Low back pain, unspecified Code(s): M54.9 - Dorsalgia, unspecified Status: Acute Assessment and Plan: Pain control as above. (5) Chronic obstructive pulmonary disease: Qualifiers: COPD type: unspecified COPD Qualified Code(s): J44.9 - Chronic obstructive pulmonary disease, unspecified Code(s): J44.9 - Chronic obstructive pulmonary disease, unspecified Status: Acute Assessment and Plan: Acute exacerbation of chronic disease. She reports increasing SOB with exertion, URI symptoms, cough with increasing sputum production and change in color. 10/10 Added Azithromycin 500 mg PO Q3 days. Stopped 10/11 when changed to Levaquin as this will cover urine and lung microbes. Continue arformoterol nebs (patient to bring from home) and budesonide nebs BID. PRN albuterol and ipratroprium QID Will hold off on systemic steroids at this time due to UTI and known osteoporosis. Will treat with budesonide nebs BID scheduled for now. 10/11 lung sounds diminished but no wheezing appreciated. (6) Chronic respiratory failure with hypoxia: Code(s): J96.11 - Chronic respiratory failure with hypoxia Status: Chronic Assessment and Plan: She wears 3L O2 daily and is currently at baseline oxygen requirement. Monitor respiratory status. (7) Chronic anticoagulation: Code(s): Z79.01 - terminal supervisor (current) use of anticoagulants Status: Chronic Assessment and Plan: Continue apixaban which she is taking for history of PE in May 2022. (8) Osteoporo
[2022-10-12 14:00] VITALS: BP 104/64; PULSE 84; RESP 18; TEMP 36.7; O2SAT 100
--- NOTE | 2022-10-12 16:10 | PM.DS ---
DS: Admitting Diagnosis Discharge Date 10/12/2022 Admitting Diagnosis Urinary tract infection Back pain Chronic respiratory failure with hypoxia Chronic obstructive pulmonary disease DS: Discharge Diagnosis Discharge Diagnosis (1) Urinary tract infection: Qualifiers: Urinary tract infection type: acute pyelonephritis Qualified Code(s): N10 - Acute pyelonephritis Code(s): N39.0 - Urinary tract infection, site not specified Status: Acute Assessment and Plan: UA +nitrates, 2+ luekocytes, 51-100 WBC with suprapubic tenderness noted on exam. Patient presented with c/o fever suggesting acute pyelonephritis.? She has h/o ESBL UTI sensitive to carbepenems. She has h/o frequent UTIs and has seen Urology in the past. Last UTI >6 months ago, she states.? Continue Invanz given history of ESBL Klebsiella pneumoniae UTI, urine culture with ESBL sensitive to levaquin. 10/11 change to Levaquin 750 mg PO daily x 5 days for total 7 day course. Blood cultures negative x2 (2) Compression fracture of lumbar vertebra: Qualifiers: Encounter type: initial encounter Lumbar vertebra fracture level: L2 Qualified Code(s): S32.020A - Wedge compression fracture of second lumbar vertebra, initial encounter for closed fracture Code(s): S32.000A - Wedge compression fracture of unspecified lumbar vertebra, initial encounter for closed fracture Status: Acute Assessment and Plan: Non-traumatic. Acute and chronic compression fractures. Significant pain with palpation in the low thoracic and upper lumbar vertebrae and in the paraspinous muscles surrounding the is areas.? X-ray shows old compression fractures without significant change.? MRI of the thoracic and lumbar spine show acute moderate compression fracture L2 and chronic compression fractures to T5, T8, L1, L3, & L4.? Continue pain control with baclofen 5 mg Q8 PRN, [place] 5/325 mg PO Q4 hours PRN and IV dilaudid PRN for breakthrough pain.? Neurosurgery consulted for evaluation and recommendations- corset when out of bed as needed recommended. No surgical intervention at this time.? PT/OT evaluation after recommendations from neurosurgery. (3) Compression fracture of thoracic vertebra: Qualifiers: Encounter type: initial encounter Thoracic vertebra fracture level: unspecified thoracic vertebra Qualified Code(s): S22.000A - Wedge compression fracture of unspecified thoracic vertebra, initial encounter for closed fracture Code(s): S22.000A - Wedge compression fracture of unspecified thoracic vertebra, initial encounter for closed fracture Status: Chronic Assessment and Plan: Non-traumatic. As above. (4) Back pain: Qualifiers: Back pain laterality: midline Back pain location: low back pain Chronicity: acute Sciatica presence: without sciatica Qualified Code(s): M54.50 - Low back pain, unspecified Code(s): M54.9 - Dorsalgia, unspecified Status: Acute Assessment and Plan: Pain control as above. (5) Chronic obstructive pulmonary disease: Qualifiers: COPD type: unspecified COPD Qualified Code(s): J44.9 - Chronic obstructive pulmonary disease, unspecified Code(s): J44.9 - Chronic obstructive pulmonary disease, unspecified Status: Acute Assessment and Plan: Acute exacerbation of chronic disease. She reports increasing SOB with exertion, URI symptoms, cough with increasing sputum production and change in color. 10/10 Added Azithromycin 500 mg PO Q3 days. Stopped 10/11 when changed to Levaquin as this will cover urine and lung microbes. Continue arformoterol nebs (patient to bring from home) and budesonide nebs BID. PRN albuterol and ipratroprium QID? Will hold off on systemic steroids at this time due to UTI and known osteoporosis. Will treat with budesonide nebs BID scheduled for now. 10/11 lung sounds diminished but no wheezing appreciated.? (6)
[2022-10-12] MEDS: predniSONE 20 MG TABLET 40 MG PO (16:42)
[2022-10-12] MEDS: guaiFENesin 12 HR 600 MG TABCR PO (16:42)
== END 2022-10-12 17:15 | disposition home or self-care (01) ==
LOC: ANHED 17:06 → ANH2MED 18:00
PROVIDERS: Nurse Practitioner Family; Physician Assistant; Admitting Provider Family Medicine; Emergency Provider Emergency Medicine; PCP Physician Assistant; Visit Provider Internal Medicine
DX: N39.0 Urinary tract infection, site not specified (principal); B96.1 Klebsiella pneumoniae [K. pneumoniae] as the cause of diseases classified elsewhere; M81.0 Age-related osteoporosis without current pathological fracture; S32.010A Wedge compression fracture of first lumbar vertebra, initial encounter for closed fracture; S32.020A Wedge compression fracture of second lumbar vertebra, initial encounter for closed fracture; S32.030A Wedge compression fracture of third lumbar vertebra, initial encounter for closed fracture; S32.040A Wedge compression fracture of fourth lumbar vertebra, initial encounter for closed fracture; S22.000A Wedge compression fracture of unspecified thoracic vertebra, initial encounter for closed fracture; M47.819 Spondylosis without myelopathy or radiculopathy, site unspecified; Z20.822 Contact with and (suspected) exposure to COVID-19; J44.9 Chronic obstructive pulmonary disease, unspecified; J96.11 Chronic respiratory failure with hypoxia; Z99.81 Dependence on supplemental oxygen; I25.10 Atherosclerotic heart disease of native coronary artery without angina pectoris; K21.9 Gastro-esophageal reflux disease without esophagitis; G47.33 Obstructive sleep apnea (adult) (pediatric); I47.1 Supraventricular tachycardia; I10 Essential (primary) hypertension; D64.9 Anemia, unspecified; Z79.51 Long term (current) use of inhaled steroids; Z79.01 Long term (current) use of anticoagulants; Z79.899 Other long term (current) drug therapy; Z86.711 Personal history of pulmonary embolism; Z87.891 Personal history of nicotine dependence; Z87.440 Personal history of urinary (tract) infections; Z82.49 Family history of ischemic heart disease and other diseases of the circulatory system
CPT/HCPCS: 36415; 71046; 72100; 72157; 72158; 80048; 80053; 81001; 82306; 83605; 83735; 85025; 85027; 85610; 85652; 85730; 86140; 87040; 87077; 87086; 87186; 87636; 94640; 96361; 96365; 96367; 97161; 99285; A9270; A9577; G0378; J0692; J1335; J1885; J7030; J7512

== ENCOUNTER 2023-03-13 11:22 | Emergency (ER) | payer MEDICARE, SELFPAY ==
[2023-03-13] VITALS (8 sets, daily range): BP systolic 104–134; BP diastolic 66–88; PULSE 60–76; RESP 13–23; TEMP 36.5; O2SAT 99–100
--- NOTE | ~2023-03-13 | US_ITS ---
Limited Abdominal Sonogram: Real-time sonographic imaging of the right upper quadrant was performed. Clinical History: Right upper quadrant pain Findings: The liver appears normal with no evidence of mass lesion or bile duct dilatation. Main por [place] vein demonstrates normal direction of flow. The gallbladder is well distended, and appears normal with no evidence of gallstone or wall thickening. The common bile duct measures 3 mm. The visualize d pancreas, aorta, and IVC are unremarkable. Impression: No significant abnormality seen. Reviewed, dictated and finalized at location M. Impression: No significant abnormality seen.
--- NOTE | ~2023-03-13 | XR_ITS ---
EXAMINATION: XR chest 2V DATE: 03/13/2023 12:45 INDICATION: Productive cough TECHNIQUE: AP and lateral views of the chest are obtained. COMPARISON: 10/09/2022 FINDINGS: The lungs are free of acute opacities. There are chronic opacities of the lungs, consistent with emphysema. No pleural effusion or pneumothorax. The cardiomediastinal silhouette is normal. The re are stable thoracic compression fractures. Bilateral breast implants are noted. IMPRESSION: 1. No acute cardiopulmonary abnormality. Reviewed, dictated and finalized at location B.
--- NOTE | ~2023-03-13 | CT_ITS ---
EXAMINATION: CT abdomen pelvis w con DATE: 03/13/2023 12:35 INDICATION: Abdominal pain TECHNIQUE: Computed tomography (CT) of the abdomen and pelvis was performed with 100 mL Omnipaque-350 intravenous contrast. Automated exposure control and iterative reconstruction technique were employe d. The dose-length product was 281.88 mGy-cm. COMPARISON: 06/20/2021 and 05/29/2022 FINDINGS: Severe emphysema at the lung bases. Heart size is normal. Atherosclerotic coronary artery calcificati ons. No pericardial or pleural effusion. Calcified left hilar lymph nodes consistent with old granulo matous disease. Capsular calcifications along bilateral breast implants. 7 mm hepatic cyst. Gallbladd er, spleen, pancreas and bilateral adrenal glands are normal. There are multiple bilateral renal cyst s the largest measuring 1.7 cm the upper poles of both kidneys. Bowels are normal. The appendix is no t visualized. No pericecal inflammatory change to suggest acute appendicitis. Bladder is normal. The uterus is not identified and has likely been surgically resected. 2.5 cm right ovarian cyst. No free intraperitoneal gas or fluid. No pathologically enlarged abdominal or pelvic lymphadenopathy. There i s calcified atherosclerosis without hemodynamically significant stenosis of the tortuous normal calib er aorta and many of the other arteries. Chronic L1-L3 burst fractures with interval progression at L2 and new chronic appearing inferior endplate compression fracture at T10. IMPRESSION: 1. No acute intra-abdominal/pelvic process. Reviewed, dictated and finalized at location A.
[2023-03-13 11:47] LABS: Basophils Absolute Auto 0.1 K/mm3 (0.0-0.1); Basophils Percent Auto 0.6 % (0.2-1.2); Eosinophils Absolute Auto 0.1 K/mm3 (0-0.3); Eosinophils Percent Auto 0.9 % (0-4.4); Hematocrit 37.9 % (37.0-47.0); Hemoglobin 11.3 g/dL (12.0-15.0); Immature Granulocyte Absolute 0.06 K/mm3 (0.00-0.031); Immature Granulocyte Percent A 0.5 % (0-0.5); Lymphocytes Absolute Auto 2.53 K/mm3 (0.9-3.2); Lymphocytes Percent Auto 19.9 % (18.3-44.2); Mean Corpuscular HGB Conc 29.8 g/dl (32-36); Mean Corpuscular Hemoglobin 26.3 pg (26-34); Mean Corpuscular Volume 88.1 fl (80-100); Monocytes Absolute Auto 0.9 K/mm3 (0.1-0.6); Neutrophils Percent Auto 71.1 % (45.5-73.1); Platelet Count Result 370 k/mm3 (150-375); Red Cell Distribution Width 16.9 % (11.5-14.5); White Blood Count 12.7 K/mm3 (4.5-10.0)
--- NOTE | 2023-03-13 11:52 | ED.ABDPAIN ---
HPI - Abdominal Pain General Chief Complaint: Abdominal Pain Stated Complaint: abdominal Pain Time Seen by Provider: 03/13/23 11:50 History of Present Illness HPI narrative: Patient is a 77-year-old female here with abdominal pain and cough. Patient states that her abdominal pain is generalized and radiates to bilateral flank. She is unsure if worsens with food. She has had some associated decreased appetite, nausea, 1 episode of vomiting. Her last bowel movement was yesterday, is normal for her to have bowel movements every other day, shows normal consistency and color. She has had her normal amount of flatulence. She has had 1 prior abdominal surgery which was a total hysterectomy in the past. She denies any associated fever chills. She denies any urinary symptoms worse from her baseline urinary incontinence. She took ibuprofen yesterday which did not help with her pain. She additionally endorses a cough which has been worsened from her baseline and present for about 2 days. Her sputum was initially clear now seems to be yellowish green in color. She denies any increase in her home oxygen use which is usually 3 L nasal cannula. No known sick contacts. No chest pain. Related Data Home Medications Medication Instructions Recorded Confirmed diltiazem HCl 180 mg 180 mg PO DAILY 06/20/21 02/19/23 capsule,extended release 24 hr (Cardizem CD) pantoprazole 40 mg tablet,delayed 40 mg PO DAILY 10/09/22 02/19/23 release Allergies Allergy/AdvReac Type Severity Reaction Status Date / Time No Known Allergies Allergy Verified 03/13/23 11:33 Review of Systems Review of Systems: CONSTITUTIONAL: Chills, Denies fever, or sweats. EYES: Denies visual changes, redness, or discharge. ENT: Denies rhinorrhea, congestion, sore throat, or otalgia. CARDIOVASCULAR: Denies chest pain, palpitations, or edema. RESPIRATORY: cough, chronic dyspnea. GASTROINTESTINAL: abdominal pain, nausea and vomiting, Denies diarrhea. GENITOURINARY: Denies dysuria or hematuria. Bilateral flank pain SKIN: Denies rash or itching. MUSCULOSKELETAL: Denies back pain, joint pain, or myalgia. NEUROLOGIC: Denies headache, numbness, or weakness. PSYCHIATRIC: Denies anxiety or depression. [facility] Past Medical History Medical History Abnormal nuclear stress test (03/2022) Cardiac catheterization on 04/02/2022 showed preserved left ventricular systolic function with minimal atherosclerosis of the proximal LAD and the proximal and mid RCA. Chronic anticoagulation Chronic obstructive pulmonary disease Chronic respiratory failure with hypoxia, on home oxygen therapy COPD with emphysema Coronary artery calcification Calcifications noted on chest CT in October 2019. Echocardiogram showed normal left ventricular systolic function with an ejection fraction of 65 to 70% as well as grade 1 diastolic dysfunction. Gastroesophageal reflux disease History of tobacco abuse 45 pack year smoking history, quit in October 2019. 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 Supraventricular tachycardia Surgical History Surgical History History of bladder suspension procedure History of breast augmentation History of cardiac catheterization (03/2022) History of partial hysterectomy Family History Family History Mother Family history of heart disease in male family member before age 55 Cerebrovascular accident Heart attack Sibling Family history of heart disease in male family member before age 55 Heart attack Cerebrovascular accident Transitional cell carcinoma Father Cerebrovascular accident Social History Social History Social History: Surrogate cornelia
[2023-03-13 12:13] LABS: Alanine Aminotransferase 14 U/L (6-35); Albumin Level 4.3 g/dL (3.5-5.1); Alkaline Phosphatase 90 U/L (38-126); Anion Gap 2 mmol/L (8-16); Aspartate Amino Transferase 26 U/L (14-36); Bilirubin,Total 0.6 mg/dL (0.2-1.3); Blood Urea Nitrogen 11 mg/dL (7-17); Calcium 9.1 mg/dL (8.4-10.2); Carbon Dioxide 31 mmol/L (22-30); Chloride 105 mmol/L (98-107); Estimated CRCL calculation 49 ml/min; Estimated Glomerular Filt Rate > 60; Glucose 74 mg/dL (65-110); Lipase 163 U/L (23-300); Potassium 4.9 mmol/L (3.4-5.0); Sodium 138 mmol/L (137-145)
[2023-03-13 12:23] LABS: Appearance Urine Cloudy (Clear); Bacteria Urine None Seen /hpf; Bilirubin Urine Negative (Negative); Blood Urine Negative (Negative); Color Urine Yellow (Yellow); Glucose Urine UA Negative (Negative); Ketones Urine Negative (Negative); Leukocyte Esterase Ur Negative LEU/UL (Negative); Nitrate Urine Negative (Negative); Non Pathogenic Casts 0-2; Protein Urine Negative (Negative); RBC Urine 0-2 /hpf (0-2); Specific Grav Ur 1.014 (1.001-1.035); Squamous Epithelial Cell Urine Occasional /hpf (Few); Urobilinogen Urine 0.2 mg/dL (<2.0); WBC Urine 0-5 /hpf; pH Urine 7.5 (5.0-9.0)
--- NOTE | 2023-03-13 12:25 | PC.NURSE ---
Pt to CT scan via stretcher at this time.
[2023-03-13 12:27] LABS: Add Urine Microscopic? YES
[2023-03-13] MEDS: IPRATROPIUM BR 0.02% INH SOLN 0.5 MG/2.5 ML VIAL INHALATION (12:34)
[2023-03-13] MEDS: ALBUTEROL SULFATE NEB 2.5 MG/3 ML INH INHALATION (12:34)
[2023-03-13 12:35] LABS: CRP 0.8 mg/dL (<1.0); Magnesium 2.3 mg/dL (1.6-2.3)
[2023-03-13 12:39] LABS: Platelet Estimate Adequate (Adequate)
[2023-03-13 12:45] LABS: Troponin I 0.012 ng/mL (0.000-0.034)
[2023-03-13 12:50] LABS: Anisocytosis 1+ (NORMAL); Schistocytes None Seen (NORMAL)
[2023-03-13 12:51] LABS: Burr Cells 2+ (NORMAL)
[2023-03-13] MEDS: ONDANSETRON INJ 4 MG/2 ML VIAL IV PUSH (12:51)
[2023-03-13] MEDS: PANTOPRAZOLE SODIUM IV 40 MG VIAL IV PUSH (12:51)
[2023-03-13] MEDS: MORPHINE SULFATE (*CRX) 2 MG/ML INJ IV PUSH (12:52)
[2023-03-13 13:39] LABS: SARS-CoV-2 RNA PCR Negative (Negative)
[2023-03-13] MEDS: BELLADONNA ALK/PHENOB ELIX 10 ML, MAG HYDROX/ALUMINUM HYD/SIMETH 30 ML, LIDOCAINE HCL 2... PO (17:13)
== END 2023-03-13 18:06 | disposition home or self-care (01) ==
PROVIDERS: Emergency Medicine; Emergency Provider Student in an Organized Health Care Education/Training Program; PCP Physician Assistant
DX: J43.9 Emphysema, unspecified (principal); R10.13 Epigastric pain; Z20.822 Contact with and (suspected) exposure to COVID-19; J96.11 Chronic respiratory failure with hypoxia; Z99.81 Dependence on supplemental oxygen; K21.9 Gastro-esophageal reflux disease without esophagitis; M85.80 Other specified disorders of bone density and structure, unspecified site; Z90.710 Acquired absence of both cervix and uterus; Z86.711 Personal history of pulmonary embolism; Z85.828 Personal history of other malignant neoplasm of skin; Z92.3 Personal history of irradiation; Z87.891 Personal history of nicotine dependence
CPT/HCPCS: 36415; 71046; 74177; 76705; 80053; 81001; 83690; 83735; 84484; 85025; 86140; 87635; 94640; 96374; 96375; 99284; A9270; C9113; J2270; J2405; Q9967

== ENCOUNTER 2023-03-16 22:39 | Emergency (ER) | payer MEDICARE, SELFPAY ==
--- NOTE | ~2023-03-16 | CT_ITS ---
EXAMINATION: CT abdomen pelvis w con DATE: 03/17/2023 01:34 INDICATION: Lower abdominal pain TECHNIQUE: Computed tomography (CT) of the abdomen and pelvis was performed with 100 cc Omnipaque 350 intravenous contrast. The dose-length product was 273.19 mGy-cm. Automated exposure control and iterative reconstruction technique were employed. COMPARISON: CT dated 03/13/2023. FINDINGS: There is emphysema. There are calcified granulomas in the left lower lobe. There is depende nt atelectasis. There are peripherally calcified breast implants. Heart size normal. No significant p leural or pericardial effusion. Small subcentimeter hypodensities of the liver, most likely benign cysts or hemangiomas. There are ca lcified granulomas of the spleen. The pancreatic duct is mildly prominent, although improved since pr ior study. No focal pancreatic masses are identified. The adrenal glands are unremarkable. There are bilateral renal cysts. There is moderate fluid and stool throughout the bowel. No obstruction. There is a 2.5 cm right adnexal cyst, possibly ovarian or mesenteric. Consider correlation with ultrasound. There is atherosclerosis of the aorta without aneurysm. No lymphadenopathy. Chronic L1-L3 burst frac tures. Chronic inferior endplate compression deformity of L4. Moderate lumbar spondylosis. IMPRESSION: 1. Moderate fluid in stool present throughout the bowel without definite obstruction, possibly ileus or enterocolitis. Reviewed, dictated and finalized at location A. IMPRESSION: 1. Moderate fluid in stool present throughout the bowel without definite obstru ction, possibly ileus or enterocolitis.
[2023-03-16 22:41] VITALS: BP 120/85; PULSE 83; RESP 19; TEMP 36.7; O2SAT 100
[2023-03-16 22:54] LABS: Basophils Absolute Auto 0.1 K/mm3 (0.0-0.1); Basophils Percent Auto 1.1 % (0.2-1.2); Eosinophils Absolute Auto 0.4 K/mm3 (0-0.3); Eosinophils Percent Auto 3.8 % (0-4.4); Hematocrit 37.7 % (37.0-47.0); Hemoglobin 11.4 g/dL (12.0-15.0); Immature Granulocyte Absolute 0.02 K/mm3 (0.00-0.031); Immature Granulocyte Percent A 0.2 % (0-0.5); Lymphocytes Percent Auto 32.9 % (18.3-44.2); Mean Corpuscular HGB Conc 30.2 g/dl (32-36); Mean Corpuscular Hemoglobin 26.5 pg (26-34); Mean Corpuscular Volume 87.5 fl (80-100); Mean Platelet Volume 11.1 fl (7.4-10.4); Monocytes Absolute Auto 0.9 K/mm3 (0.1-0.6); Monocytes Percent Auto 9.9 % (2.6-8.5); Neutrophils Absolute Auto 4.7 K/mm3 (1.3-6.7); Neutrophils Percent Auto 52.1 % (45.5-73.1); Platelet Count Result 380 k/mm3 (150-375); Red Blood Count 4.31 M/mm3 (4.2-5.4); Red Cell Distribution Width 16.5 % (11.5-14.5); White Blood Count 9.1 K/mm3 (4.5-10.0)
[2023-03-16 23:06] LABS: Alanine Aminotransferase 15 U/L (6-35); Albumin Level 4.3 g/dL (3.5-5.1); Alkaline Phosphatase 83 U/L (38-126); Anion Gap 6 mmol/L (8-16); Aspartate Amino Transferase 31 U/L (14-36); Bilirubin,Total 0.4 mg/dL (0.2-1.3); Blood Urea Nitrogen 12 mg/dL (7-17); Carbon Dioxide 27 mmol/L (22-30); Chloride 105 mmol/L (98-107); Estimated CRCL calculation 38 ml/min; Estimated Glomerular Filt Rate > 60; Glucose 95 mg/dL (65-110); Lipase 250 U/L (23-300); Potassium 4.1 mmol/L (3.4-5.0); Sodium 138 mmol/L (137-145)
--- NOTE | 2023-03-17 00:30 | PC.NURSE ---
RN asked pt for UA, unable to void.
[2023-03-17 01:03] VITALS: BP 136/95; PULSE 75; RESP 18; O2SAT 98
--- NOTE | 2023-03-17 01:08 | ED.ABDPAIN ---
HPI - Abdominal Pain General Chief Complaint: Abdominal Pain Stated Complaint: abd pain Time Seen by Provider: 03/17/23 00:27 History of Present Illness HPI narrative: Patient is a 78-year-old female with a history of COPD on 3 L baseline presenting with abdominal pain. Patient states that for the last several days she has had lower abdominal pain that has not improved. She was actually here a few days ago and her work-up was unremarkable but she was told if her pain worsened to come back. States that the pain got worse today despite taking Tylenol. States that she took an enema and MiraLAX and was able to have a very small bowel movement yesterday. No nausea or vomiting. No fevers, chest pain, shortness of breath, dysuria, flank pain, leg swelling. Related Data Home Medications Medication Instructions Recorded Confirmed diltiazem HCl 180 mg 180 mg PO DAILY 06/20/21 02/19/23 capsule,extended release 24 hr (Cardizem CD) pantoprazole 40 mg tablet,delayed 40 mg PO DAILY 10/09/22 02/19/23 release Allergies Allergy/AdvReac Type Severity Reaction Status Date / Time No Known Allergies Allergy Verified 03/22/23 09:08 Review of Systems Review of Systems: All systems reviewed & are unremarkable except as noted in HPI and below PMFSH Past Medical History Medical History Abnormal nuclear stress test (03/2022) Cardiac catheterization on 04/02/2022 showed preserved left ventricular systolic function with minimal atherosclerosis of the proximal LAD and the proximal and mid RCA. Chronic anticoagulation Chronic obstructive pulmonary disease Chronic respiratory failure with hypoxia, on home oxygen therapy COPD with emphysema Coronary artery calcification Calcifications noted on chest CT in October 2019. Echocardiogram showed normal left ventricular systolic function with an ejection fraction of 65 to 70% as well as grade 1 diastolic dysfunction. Gastroesophageal reflux disease History of tobacco abuse 45 pack year smoking history, quit in October 2019. 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 Supraventricular tachycardia Surgical History Surgical History History of bladder suspension procedure History of breast augmentation History of cardiac catheterization (03/2022) History of partial hysterectomy Family History Family History Mother Family history of heart disease in male family member before age 55 Cerebrovascular accident Heart attack Sibling Family history of heart disease in male family member before age 55 Heart attack Cerebrovascular accident Transitional cell carcinoma Father Cerebrovascular accident Social History Social History Social History: Surrogate decision maker: Nancy Keith, granddaughter. Code status: Full code. Smoking packs per day: 1 Smoking cigarettes per day: 20.0 Years smoked: 60 Smoking pack-years: 60.00 Smoking status: Former smoker Second hand tobacco smoke exposure: No Additional smoking assessment comments: Smoked .75 packs per day but up to 1.5 - 2 packs per day for over a year. Alcohol intake: never Substance use: never Substance use type: does not use Lack of Transportation: No Lack of Food: Never True Current Housing: I Have Housing Concerned About Future Housing: No Difficulty Paying Gas/Electric Bills: No Difficulty Paying for Meds: No Currently Unemployed: No Education: High School Diploma/GED Difficulty w/ Childcare or Family Care: No Living arrangements: with family Additional living arrangements comments: Lives alone, son Valentino lives 1 house away. Occupation/Education: retired Additional occupation/education comments: Worked 40 year
[2023-03-17] MEDS: MORPHINE SULFATE (*CRX) 4 MG/ML INJ IV PUSH (01:22)
--- NOTE | 2023-03-17 02:14 | PC.NURSE ---
pt. cannot provide urine sample at this time.
[2023-03-17 02:30] VITALS: BP 97/64; PULSE 79; RESP 14; O2SAT 98
[2023-03-17 03:27] LABS: Appearance Urine Clear (Clear); Bilirubin Urine Negative (Negative); Blood Urine Negative (Negative); Color Urine Yellow (Yellow); Glucose Urine UA Negative (Negative); Ketones Urine Negative (Negative); Leukocyte Esterase Ur Negative LEU/UL (Negative); Nitrate Urine Negative (Negative); Protein Urine Negative (Negative); Urobilinogen Urine 0.2 mg/dL (<2.0)
[2023-03-17 03:30] VITALS: BP 100/73; PULSE 78; RESP 17; O2SAT 100
[2023-03-17 03:43] LABS: Specific Grav Ur 1.061 (1.001-1.035)
[2023-03-17 03:44] LABS: Add Urine Microscopic? NO
[2023-03-17 04:35] VITALS: BP 90/60; PULSE 75; RESP 18; O2SAT 99
[2023-03-17] MEDS: ACETAMINOPHEN 500 MG TABLET 1000 MG PO (04:42)
[2023-03-17] MEDS: SODIUM CHLORIDE 0.9% IV 1,000 ML 999 ML IV CONT (04:42)
[2023-03-17 05:50] VITALS: BP 123/89; PULSE 70; RESP 19; O2SAT 97
--- NOTE | 2023-03-22 01:19 | PC.NURSE ---
LATE ENTRY This note is being entered to document information to the patient's record. The following information was omitted on [03/22/23], by [TANIKA Holt]. NS stopped at 0500
== END 2023-03-17 05:50 | disposition home or self-care (01) ==
PROVIDERS: Emergency Provider Emergency Medicine; PCP Physician Assistant
DX: K59.00 Constipation, unspecified (principal); J96.11 Chronic respiratory failure with hypoxia; J43.9 Emphysema, unspecified; I65.29 Occlusion and stenosis of unspecified carotid artery; K21.9 Gastro-esophageal reflux disease without esophagitis; M85.80 Other specified disorders of bone density and structure, unspecified site; Z99.81 Dependence on supplemental oxygen; Z86.711 Personal history of pulmonary embolism; Z85.828 Personal history of other malignant neoplasm of skin; Z87.891 Personal history of nicotine dependence; Z90.711 Acquired absence of uterus with remaining cervical stump; Z79.01 Long term (current) use of anticoagulants
CPT/HCPCS: 36415; 74177; 80053; 81003; 83690; 85025; 96361; 96374; 99284; A9270; J2270; J7030; Q9967

== ENCOUNTER 2023-03-22 09:00 | Observation (INO) | payer MEDICARE, SELFPAY ==
[2023-03-22] VITALS (29 sets, daily range): BP systolic 96–127; BP diastolic 58–84; PULSE 80–85; RESP 13–16; TEMP 36.4–37.2; O2SAT 92–100; BMI 22.2
--- NOTE | ~2023-03-22 | CT_ITS ---
EXAMINATION: CT abdomen pelvis w con DATE: 03/22/2023 11:17 INDICATION: Epigastric abdominal pain. TECHNIQUE: Computed tomography (CT) of the abdomen and pelvis was performed with 100 mL Omnipaque 350 intravenous contrast. Automated exposure control and iterative reconstruction technique were employe d. The dose-length product was 223.36 mGy-cm. COMPARISON: CT abdomen and pelvis 03/17/2023, 03/13/23, 05/29/22 FINDINGS: The visualized portions of the lung bases demonstrate emphysema and mild atelectasis. No pl eural effusion. Breast implants are noted. The heart size is normal. No pericardial effusion. There a re coronary artery calcifications. There is a 7 mm cyst in the liver. The gallbladder, spleen, pancre as, and adrenal glands are normal. There are cysts in the kidneys measuring up to 19 mm on the left. There is calcified atherosclerosis of the aorta and many of the other arteries. There is a 2.4 cm cys t in right ovary, likely benign, stable from 05/29/22. There are no pathologically enlarged lymph node s. There is no free intraperitoneal fluid. There are chronic burst fractures of L1, L2, and L3. There is a burst fracture of T10 with 2/5 loss of height centrally and retropulsion of bone 3 mm into cent ral spinal canal. IMPRESSION: 1. Acute T10 burst fracture, worsened from 03/17/2023. Reviewed, dictated and finalized at location E.
--- NOTE | ~2023-03-22 | CT_ITS ---
EXAMINATION: CT thoracic spine wo con DATE: 03/22/2023 14:05 INDICATION: TECHNIQUE: Computed tomography (CT) of the was performed without intravenous contrast. The dose-lengt h product was 296.61 mGy-cm. COMPARISON: CT abdomen dated 03/22/[address] chest dated 07/10/2013 FINDINGS: There is a burst fracture of T10 involving the inferior endplate with retropulsion javed lik mikaela acute. There is a chronic partially visualized compression fracture of L1. There are chronic comp ression fractures of T5, T6, and T7. There is chronic burst fracture of T8. Accentuated thoracic kyph osis. There is atherosclerosis of the aorta. There is emphysema. There is a left apical mass with spi culated margins measuring 2.2 x 1.3 cm, suspicious for bronchogenic carcinoma. There is chronic right apical pleural thickening/scarring. There is residual contrast in the renal collecting systems. IMPRESSION: 1. Acute T10 burst fracture with approximately 30 % loss of vertebral body height. 2: Likely chronic fractures of T5, T6, T7, T8 and L1. 3: Spiculated left apical mass measuring 2.2 cm, suspicious for bronchogenic carcinoma. Recommend cor relation with pet/CT scan. 4: Emphysema. Reviewed, dictated and finalized at location B. IMPRESSION: 1. Acute T10 burst fracture with approximately 30 % loss of vertebral body heig ht. 2: Likely chronic fractures of T5, T6, T7, T8 and L1. 3: Spiculated left apical mass measuring 2.2 cm, suspicious for bronchogenic ca rcinoma. Recommend correlation with pet/CT scan. 4: Emphysema.
--- NOTE | 2023-03-22 09:29 | ED.ABDPAIN ---
HPI - Abdominal Pain General Chief Complaint: Abdominal Pain Stated Complaint: back and abd pain Time Seen by Provider: 03/22/23 09:29 Source: patient History of Present Illness HPI narrative: 78 years old white female came to the emergency room by private car with her son complaining of abdominal pain for a while at least 10 days, came to our emergency room 5 days ago and was diagnosed of constipation, was discharged on GoLytely, with good bowel movement without improvement of the abdominal pain. She denies any fever, chills, vomiting. Pain worse with any movement, nothing make it better. History of pulmonary embolism on Eliquis, vaginal hysterectomy, COPD on 3 L normal saline all the time. Related Data Home Medications Medication Instructions Recorded Confirmed diltiazem HCl 180 mg 180 mg PO DAILY 06/20/21 02/19/23 capsule,extended release 24 hr (Cardizem CD) pantoprazole 40 mg tablet,delayed 40 mg PO DAILY 10/09/22 02/19/23 release Allergies Allergy/AdvReac Type Severity Reaction Status Date / Time No Known Allergies Allergy Verified 03/22/23 09:08 Review of Systems Review of Systems: All systems reviewed & are unremarkable except as noted in HPI and below PMFSH Past Medical History Medical History Abnormal nuclear stress test (03/2022) Cardiac catheterization on 04/02/2022 showed preserved left ventricular systolic function with minimal atherosclerosis of the proximal LAD and the proximal and mid RCA. Chronic anticoagulation Chronic obstructive pulmonary disease Chronic respiratory failure with hypoxia, on home oxygen therapy COPD with emphysema Coronary artery calcification Calcifications noted on chest CT in October 2019. Echocardiogram showed normal left ventricular systolic function with an ejection fraction of 65 to 70% as well as grade 1 diastolic dysfunction. Gastroesophageal reflux disease History of tobacco abuse 45 pack year smoking history, quit in October 2019. 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 Supraventricular tachycardia Surgical History Surgical History History of bladder suspension procedure History of breast augmentation History of cardiac catheterization (03/2022) History of partial hysterectomy Family History Family History Mother Family history of heart disease in male family member before age 55 Cerebrovascular accident Heart attack Sibling Family history of heart disease in male family member before age 55 Heart attack Cerebrovascular accident Transitional cell carcinoma Father Cerebrovascular accident Social History Social History Social History: Surrogate decision maker: Nancy Keith, granddaughter. Code status: Full code. Smoking packs per day: 1 Smoking cigarettes per day: 20.0 Years smoked: 60 Smoking pack-years: 60.00 Smoking status: Former smoker Tobacco type: cigarettes Second hand tobacco smoke exposure: No Smoking end date: 06/24/19 Additional smoking assessment comments: Smoked .75 packs per day but up to 1.5 - 2 packs per day for over a year. Alcohol intake: never Substance use: never Substance use type: does not use Lack of Transportation: No Lack of Food: Never True Current Housing: I Have Housing Concerned About Future Housing: No Difficulty Paying Gas/Electric Bills: No Difficulty Paying for Meds: No Currently Unemployed: No Education: High School Diploma/GED Difficulty w/ Childcare or Family Care: No Living arrangements: with family Additional living arrangements comments: Lives alone, son Valentino lives 1 house away. Occupation/Education: retired Additional occupation/education comments: Worked 40 years [employer]
[2023-03-22 09:38] LABS: Basophils Absolute Auto 0.1 K/mm3 (0.0-0.1); Basophils Percent Auto 1.1 % (0.2-1.2); Eosinophils Absolute Auto 0.2 K/mm3 (0-0.3); Eosinophils Percent Auto 2.7 % (0-4.4); Hematocrit 39.4 % (37.0-47.0); Hemoglobin 11.9 g/dL (12.0-15.0); Immature Granulocyte Absolute 0.02 K/mm3 (0.00-0.031); Immature Granulocyte Percent A 0.3 % (0-0.5); Lymphocytes Absolute Auto 2.23 K/mm3 (0.9-3.2); Lymphocytes Percent Auto 30.3 % (18.3-44.2); Mean Corpuscular HGB Conc 30.2 g/dl (32-36); Mean Corpuscular Hemoglobin 26.3 pg (26-34); Mean Platelet Volume 11.2 fl (7.4-10.4); Monocytes Absolute Auto 0.7 K/mm3 (0.1-0.6); Neutrophils Absolute Auto 4.2 K/mm3 (1.3-6.7); Neutrophils Percent Auto 56.6 % (45.5-73.1); Platelet Count Result 382 k/mm3 (150-375); Red Blood Count 4.53 M/mm3 (4.2-5.4); Red Cell Distribution Width 16.7 % (11.5-14.5); White Blood Count 7.4 K/mm3 (4.5-10.0)
[2023-03-22 09:48] LABS: Alanine Aminotransferase 15 U/L (6-35); Albumin Level 4.3 g/dL (3.5-5.1); Alkaline Phosphatase 98 U/L (38-126); Anion Gap 5 mmol/L (8-16); Aspartate Amino Transferase 25 U/L (14-36); Bilirubin,Total 0.5 mg/dL (0.2-1.3); Blood Urea Nitrogen 11 mg/dL (7-17); Calcium 9.4 mg/dL (8.4-10.2); Carbon Dioxide 28 mmol/L (22-30); Chloride 105 mmol/L (98-107); Estimated CRCL calculation 38 ml/min; Estimated Glomerular Filt Rate > 60; Glucose 105 mg/dL (65-110); Lipase 168 U/L (23-300); Potassium 4.6 mmol/L (3.4-5.0); Sodium 138 mmol/L (137-145)
[2023-03-22 09:58] LABS: Anisocytosis 1+ (NORMAL); Burr Cells 1+ (NORMAL); Ovalocytes 1+ (NORMAL); Schistocytes None Seen (NORMAL)
[2023-03-22 10:02] LABS: Large Platelets Present
[2023-03-22 10:46] LABS: Bilirubin Urine Negative (Negative); Blood Urine Negative (Negative); Color Urine Yellow (Yellow); Glucose Urine UA Negative (Negative); Ketones Urine Negative (Negative); Leukocyte Esterase Ur Negative LEU/UL (Negative); Nitrate Urine Negative (Negative); Protein Urine Negative (Negative); Specific Grav Ur 1.014 (1.001-1.035); Urobilinogen Urine 0.2 mg/dL (<2.0)
[2023-03-22 10:47] LABS: Add Urine Microscopic? NO; Appearance Urine Clear (Clear)
[2023-03-22] MEDS: ONDANSETRON INJ 4 MG/2 ML VIAL IV PUSH (10:50)
[2023-03-22] MEDS: SODIUM CHLORIDE 0.9% IV 1,000 ML 999 ML IV CONT (10:50)
[2023-03-22] MEDS: MORPHINE SULFATE (*CRX) 4 MG/ML INJ IV PUSH ×2 (10:57→16:47)
[2023-03-22 11:10] LABS: Lactic Acid Reflex 0.9 mmol/L (0.7-2.0); Lipase 150 U/L (23-300)
--- NOTE | 2023-03-22 12:24 | WPDNEUROSGPN ---
Subjective Date/time seen: 03/22/23 12:24 Interval history: Asked to review patient's CT of the abdomen and pelvis in patient with back and abdominal pain PAtient has had CT of the abdomen pelvis that show chronic compression fractures and there is the suggestion of a possible slight progression of compression fx at T10. When I directly compare the recent CT with one from 5 days ago the progression at the inferior endplate is slight and there is not significant retropulsion into the spinal canal. Agree with plans to image the thoracic and lumbar spine directly (xrays suggest other compression fractures) As there has been slight proression, bracing with TLSO brace for comfort is not unreasonable. No indication for surgical intervention at this time If tiffany's pain improves with TLSO brace, imagine tiffany could be discharged with out patient follow up. Objective Data Vital Signs Vital Signs: Vital Signs - 24 hr 03/22/23 09:00 03/22/23 09:09 03/22/23 09:13 Temperature 97.6 F Pulse Rate 80 Respiratory Rate 16 Blood Pressure 124/83 127/84 Pulse Oximetry 100 96 95 Oxygen Delivery Room Air 03/22/23 09:15 03/22/23 09:16 03/22/23 09:30 Temperature Pulse Rate Respiratory Rate Blood Pressure 120/83 Pulse Oximetry 94 95 95 Oxygen Delivery 03/22/23 09:45 03/22/23 10:01 03/22/23 10:02 Temperature Pulse Rate Respiratory Rate Blood Pressure 120/80 Pulse Oximetry 96 97 96 Oxygen Delivery Meds/Results Radiology Results: ITS Impressions Abdomen/Pelvis CT 03/22/23 11:18 IMPRESSION: 1. Acute T10 burst fracture, worsened from 03/17/2023. Labs Labs: Laboratory Results - last 24 hr 03/22/23 03/22/23 03/22/23 09:22 10:11 10:49 WBC 7.4 RBC 4.53 Hgb 11.9 L Hct 39.4 MCV 87.0 MCH 26.3 MCHC 30.2 L RDW 16.7 H Plt Count 382 H MPV 11.2 H Immature Gran % (Auto) 0.3 Neut % (Auto) 56.6 Lymph % (Auto) 30.3 [place] % (Auto) 9.0 H Eos % (Auto) 2.7 Baso % (Auto) 1.1 Lymph # (Auto) 2.23 [place] # (Auto) 0.7 H Eos # (Auto) 0.2 Baso # (Auto) 0.1 Abs Immat Gran (auto) 0.02 Absolute Neuts (auto) 4.2 Absolute Nucleated RBC 0.0 Nucleated RBC % 0.0 Platelet Estimate Slightly increased Large Platelets Present Anisocytosis 1+ Ovalocytes 1+ [place] Cells 1+ Schistocytes None seen Sodium 138 Potassium 4.6 Chloride 105 Carbon Dioxide 28 Anion Gap 5 L BUN 11 Creatinine 0.90 Estim Creat Clear Calc 38 Estimated GFR > 60 Glucose 105 Lactic Acid 0.9 Calcium 9.4 Total Bilirubin 0.5 AST 25 ALT 15 Alkaline Phosphatase 98 Total Protein 8.0 Albumin 4.3 Lipase 168 150 Urine Color Yellow Urine Appearance Clear Urine pH 6.0 Ur Specific [place] 1.014 Urine Protein Negative Urine Glucose (UA) Negative Urine Ketones Negative Ur Blood (Man) Negative Urine Nitrate Negative Urine Bilirubin Negative Urine Urobilinogen 0.2 Leukocyte Esterase Rfl Negative
--- NOTE | 2023-03-22 15:02 | ADMGEN ---
This patient, Mary Kate Keith, was admitted to 3 [facility] Surg Room 313-01. Patient/family oriented to hospital policies and general routines including ID bracelet, bed and alarms, visiting hours, pain management, procedures, bathroom and other care routines, personal items, smoking policy, room service/diet, and visiting hours. Information on how to activate the Rapid Response Team has been discussed. Patient/Family are encouraged to report perceived risks to care and to ask questions if they do not understand what they are told or what they should do.
--- NOTE | 2023-03-22 15:17 | PC.NURSE ---
Pt states she does not know what medications she takes. Will have son bring them up.
--- NOTE | 2023-03-22 22:41 | PM.IMHP ---
H&P: HPI History of Present Illness Date/Time: 03/22/23 22:41 Chief Complaint: Abdominal Pain Narrative: 78 y/o F presents here with abdominal pain with radiation into back with PMH of COPD, PE on Eliquis, GERD, osteopenia, and supraventricular tachycardia. Patient reports upper abdominal pain with radiation into her back that has been worsening over the last week. No traumatic event prior to pain, heavy lifting, twisting, or pulling motion that patient can recall. Pain is currently constant, aggravated with movement. No specific movement elicits pain. Laying flat and still alleviates pain. She denies numbness and tingling to her lower extremities. Endorses generalized weakness and decreased p.o. intake due to activity limitations related to pain. Last bone density scan 40 years ago, told she had osteoporosis. Not currently on a vitamin-D or calcium supplement. She denies weight loss or night sweats. Requiring 3 L oxygen via nasal cannula at baseline for COPD. No nausea vomiting diarrhea. Last bowel movement today. Review of Systems Review of Systems: All systems reviewed & are unremarkable except as noted in HPI and below PMFSH Past Medical History Medical History Abnormal nuclear stress test (03/2022) Cardiac catheterization on 04/02/2022 showed preserved left ventricular systolic function with minimal atherosclerosis of the proximal LAD and the proximal and mid RCA. Chronic anticoagulation Chronic obstructive pulmonary disease Chronic respiratory failure with hypoxia, on home oxygen therapy COPD with emphysema Coronary artery calcification Calcifications noted on chest CT in October 2019. Echocardiogram showed normal left ventricular systolic function with an ejection fraction of 65 to 70% as well as grade 1 diastolic dysfunction. Gastroesophageal reflux disease History of tobacco abuse 45 pack year smoking history, quit in October 2019. 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 Supraventricular tachycardia Surgical History Surgical History History of bladder suspension procedure History of breast augmentation History of cardiac catheterization (03/2022) History of partial hysterectomy Family History Family History Mother Family history of heart disease in male family member before age 55 Cerebrovascular accident Heart attack Sibling Family history of heart disease in male family member before age 55 Heart attack Cerebrovascular accident Transitional cell carcinoma Father Cerebrovascular accident Social History Social History (Updated 03/22/23 @ 22:47 by Tram Palma, HERMAN) Social History: Current lives at home with her 3 sons and 1 grandson. Surrogate decision maker Shahrzad Camacho, daughter Code Status: Full Code. Smoking packs per day: 1 Smoking cigarettes per day: 20.0 Years smoked: 60 Smoking pack-years: 60.00 Smoking status: Former smoker Second hand tobacco smoke exposure: No Additional smoking assessment comments: Smoked .75 packs per day but up to 1.5 - 2 packs per day for over a year. Alcohol intake: never Substance use: never Substance use type: does not use Lack of Transportation: No Lack of Food: Never True Current Housing: I Have Housing Concerned About Future Housing: No Difficulty Paying Gas/Electric Bills: No Difficulty Paying for Meds: No Currently Unemployed: No Education: High School Diploma/GED Difficulty w/ Childcare or Family Care: No Living arrangements: with family Additional living arrangements comments: Lives alone, son Valentino lives 1 house away. Occupation/Education: retired Additional occupation/education comments: Worked 40 years [employer], , raised 8 children on he
[2023-03-23 05:36] VITALS: BP 97/56; PULSE 85; RESP 13; TEMP 36.8; O2SAT 94
[2023-03-23 08:00] VITALS: O2SAT 97
[2023-03-23] MEDS: FLUTICASONE/UMECLIDIN/VILANTER 100-62.5-25 MCG ELLIPTA 1 PUFF INHALATION (08:07)
[2023-03-23 08:09] VITALS: PULSE 78; RESP 20; O2SAT 97
[2023-03-23] MEDS: dilTIAZem HCL CD 180 MG CAP.24HR PO (08:52)
[2023-03-23] MEDS: PANTOPRAZOLE 40 MG TABLET PO (08:53)
[2023-03-23] MEDS: APIXABAN 5 MG TABLET PO ×2 (08:53→20:14)
[2023-03-23] MEDS: MORPHINE SULFATE (*CRX) 2 MG/ML INJ IV PUSH ×3 (08:55→20:14)
--- NOTE | 2023-03-23 13:27 | PM.IMPN ---
Progress Note: A&P Assessment and Plan (1) Stable burst fracture of T10 vertebra: Qualifiers: Encounter type: sequela Fracture type: closed Qualified Code(s): S22.071S - Stable burst fracture of T9-T10 vertebra, sequela Code(s): S22.071A - Stable burst fracture of T9-T10 vertebra, initial encounter for closed fracture Status: Acute Assessment and Plan: Patient presents with back pain. There is no traumatic event, heavy lifting, twisting or pulling motion prior to the onset of the pain. Pain is worse with activity and better with rest. Thoracic CT shows acute T10 burst fracture with approximately 30% loss of vertebral body height (initially seen on 03/17 CT scan but now felt to be worsening). She also has chronic fractures of T5, T6, T7, T8 and L1. Patient does have osteoporosis but unclear how severe this is. Some of these fracture are longstanding noted by imaging in the past. For example, MRI of the lumbar spine May 2021 shows chronic fractures of L1, L3, L4 and L5. Neurosurgery was consulted and appreciate their input. A brace has been ordered and is currently in place. PT and OT has been ordered. If patient can ambulate safely, patient can be discharged home. (2) Abdominal pain: Qualifiers: Abdominal location: epigastric Qualified Code(s): R10.13 - Epigastric pain Code(s): R10.9 - Unspecified abdominal pain Status: Acute Assessment and Plan: Patient was seen here a few days prior to admission for abdominal pain found to have constipation. She was started on appropriate treatment with good results. She has had [address] scans of the abdomen showing no other concerning findings. White count is normal. LFTs are normal. Lipase is normal. Urinalysis is clear. Suspect abdominal pain is related to above. Continue MiraLax as needed to ensure 1 soft bowel movement per day or every other day. (3) Chronic obstructive pulmonary disease: Qualifiers: COPD type: unspecified COPD Qualified Code(s): J44.9 - Chronic obstructive pulmonary disease, unspecified Code(s): J44.9 - Chronic obstructive pulmonary disease, unspecified Status: Acute Assessment and Plan: Patient with COPD. Well controlled. She no longer smokes. She is on Trelegy which has been continued. No wheezing. Continue to follow. (4) Compression fracture of thoracic vertebra: Qualifiers: Encounter type: initial encounter Thoracic vertebra fracture level: unspecified thoracic vertebra Qualified Code(s): S22.000A - Wedge compression fracture of unspecified thoracic vertebra, initial encounter for closed fracture Code(s): S22.000A - Wedge compression fracture of unspecified thoracic vertebra, initial encounter for closed fracture Status: Chronic Assessment and Plan: As above with acute and chronic findings. (5) Compression fracture of lumbar vertebra: Qualifiers: Encounter type: initial encounter Lumbar vertebra fracture level: L2 Qualified Code(s): S32.020A - Wedge compression fracture of second lumbar vertebra, initial encounter for closed fracture Code(s): S32.000A - Wedge compression fracture of unspecified lumbar vertebra, initial encounter for closed fracture Status: Acute Assessment and Plan: As above with chronic findings. (6) Chronic respiratory failure with hypoxia: Code(s): J96.11 - Chronic respiratory failure with hypoxia Status: Chronic Assessment and Plan: Stable on 3 L O2 nasal cannula. Plan Chronic Conditions - Hx of PE: Continue home medication - Eliquis - Supraventricular tachycardia: Continue home medication - diltiazem Diet: Heart Healthy GI Prophylaxis: Continue home pantoprazole DVT Prophylaxis: SCDs, on Eliquis Code Status: Full Code Subjective Date/time seen: 03/23/23 13:27 Interval history: 78yo female with COPD, chronic respi
[2023-03-23 14:00] VITALS: BP 108/63; PULSE 76; RESP 18; TEMP 37.1; O2SAT 96
[2023-03-23] MEDS: polyethylene glycoL 3350 17 GM POWD.PACK PO (14:10)
[2023-03-23 20:00] VITALS: PULSE 76; RESP 14; O2SAT 96
[2023-03-23 22:00] VITALS: BP 115/65; PULSE 76; RESP 14; TEMP 36.8; O2SAT 96
[2023-03-24 01:35] VITALS: O2SAT 96
[2023-03-24] MEDS: MORPHINE SULFATE (*CRX) 2 MG/ML INJ IV PUSH (02:02)
[2023-03-24 06:00] VITALS: BP 91/58; PULSE 66; RESP 14; TEMP 36.2; O2SAT 96
[2023-03-24 07:55] VITALS: PULSE 72; RESP 20; O2SAT 95
[2023-03-24] MEDS: FLUTICASONE/UMECLIDIN/VILANTER 100-62.5-25 MCG ELLIPTA 1 PUFF INHALATION (07:55)
[2023-03-24 08:00] VITALS: O2SAT 95
[2023-03-24] MEDS: HYDROcodone/acetaminophen (*CRX) 5-325 MG TABLET 1 TAB PO ×2 (08:05→12:46)
[2023-03-24] MEDS: PANTOPRAZOLE 40 MG TABLET PO (08:05)
[2023-03-24] MEDS: dilTIAZem HCL CD 180 MG CAP.24HR PO (08:05)
[2023-03-24] MEDS: APIXABAN 5 MG TABLET PO (08:05)
[2023-03-24] MEDS: polyethylene glycoL 3350 17 GM POWD.PACK PO (08:06)
--- NOTE | 2023-03-24 12:15 | PM.DS ---
DS: Admitting Diagnosis Discharge Date 03/24/23 Admitting Diagnosis Back pain DS: Discharge Diagnosis Discharge Diagnosis (1) Stable burst fracture of T10 vertebra: Qualifiers: Encounter type: sequela Fracture type: closed Qualified Code(s): S22.071S - Stable burst fracture of T9-T10 vertebra, sequela Code(s): S22.071A - Stable burst fracture of T9-T10 vertebra, initial encounter for closed fracture Status: Acute (2) Abdominal pain: Qualifiers: Abdominal location: epigastric Qualified Code(s): R10.13 - Epigastric pain Code(s): R10.9 - Unspecified abdominal pain Status: Acute (3) Chronic obstructive pulmonary disease: Qualifiers: COPD type: unspecified COPD Qualified Code(s): J44.9 - Chronic obstructive pulmonary disease, unspecified Code(s): J44.9 - Chronic obstructive pulmonary disease, unspecified Status: Acute (4) Compression fracture of thoracic vertebra: Qualifiers: Encounter type: initial encounter Thoracic vertebra fracture level: unspecified thoracic vertebra Qualified Code(s): S22.000A - Wedge compression fracture of unspecified thoracic vertebra, initial encounter for closed fracture Code(s): S22.000A - Wedge compression fracture of unspecified thoracic vertebra, initial encounter for closed fracture Status: Chronic (5) Compression fracture of lumbar vertebra: Qualifiers: Encounter type: initial encounter Lumbar vertebra fracture level: L2 Qualified Code(s): S32.020A - Wedge compression fracture of second lumbar vertebra, initial encounter for closed fracture Code(s): S32.000A - Wedge compression fracture of unspecified lumbar vertebra, initial encounter for closed fracture Status: Acute (6) Chronic respiratory failure with hypoxia: Code(s): J96.11 - Chronic respiratory failure with hypoxia Status: Chronic DS: Summary Hospital Course Reason for hospitalization: 78yo female with COPD, chronic respiratory failure (3L) and osteoporosis here for back and abdominal pain. Please see H&P for details. Hospital Course: Patient presents with back pain.? There was no traumatic event, heavy lifting, twisting or pulling motion prior to the onset of the pain.? Pain is worse with activity and better with rest. Thoracic CT shows acute T10 burst fracture with approximately 30% loss of vertebral body height (initially seen on 03/17 CT scan but now felt to be worsening).? She also has chronic fractures of T5, T6, T7, T8 and L1.? Patient does have osteoporosis but unclear how severe this is.? Some of these fracture are longstanding noted by imaging in the past.? For example, MRI of the lumbar spine May 2021 shows chronic fractures of L1, L3, L4 and L5.? Neurosurgery was consulted and appreciate their input.? A brace was ordered and is currently in place. PT and OT was ordered. Patient slow to move around due to pain but was independent. Home halth was recommended. Patient was seen here a few days prior to admission for abdominal pain found to have constipation.? She was started on appropriate treatment with good results.? She has had [address] scans of the abdomen showing no other concerning findings.? White count was normal.? LFTs were normal.? Lipase was normal.? Urinalysis was clear.? Suspect abdominal pain is related to above.? Continue MiraLax as needed to ensure 1 soft bowel movement per day or every other day. Patient with COPD and her symptoms are well controlled.? She no longer smokes.? She is on Trelegy which was continued.? Patient with chronic respiratory failure with hypoxia and was stable on 3 L O2 nasal cannula. She had clinical improvement. She was able to be discharged home with home health on 03/24/23. Status at Discharge Cognitive/behavioral status at discharge: stable Time Spent with Patient Time attestation: Total time spent providing and/or coordinating discharge se
== END 2023-03-24 13:50 | disposition home health service (06) ==
LOC: ANHED 09:41 → ANH3MEDSUR 13:35
PROVIDERS: Admitting Provider Student in an Organized Health Care Education/Training Program; Emergency Provider Emergency Medicine; PCP Physician Assistant; Visit Provider Internal Medicine
DX: S22.071S Stable burst fracture of T9-T10 vertebra, sequela (principal); R10.13 Epigastric pain; S32.020A Wedge compression fracture of second lumbar vertebra, initial encounter for closed fracture; S22.000A Wedge compression fracture of unspecified thoracic vertebra, initial encounter for closed fracture; J96.11 Chronic respiratory failure with hypoxia; J44.9 Chronic obstructive pulmonary disease, unspecified; Z99.81 Dependence on supplemental oxygen; I47.1 Supraventricular tachycardia; K21.9 Gastro-esophageal reflux disease without esophagitis; Z87.891 Personal history of nicotine dependence; M81.0 Age-related osteoporosis without current pathological fracture; Z85.828 Personal history of other malignant neoplasm of skin; Z86.711 Personal history of pulmonary embolism; Z92.3 Personal history of irradiation; Z79.01 Long term (current) use of anticoagulants; Z79.51 Long term (current) use of inhaled steroids; Z79.899 Other long term (current) drug therapy; Z82.49 Family history of ischemic heart disease and other diseases of the circulatory system; Z80.9 Family history of malignant neoplasm, unspecified
CPT/HCPCS: 36415; 72128; 74177; 80053; 81003; 83605; 83690; 85025; 94640; 96361; 96374; 96375; 96376; 97161; 97165; 99285; A9270; G0378; J2270; J2405; J7030; Q9967

== ENCOUNTER 2023-04-11 14:27 | Outpatient (CLI) | payer MEDICARE, SELFPAY ==
[2023-04-11 14:45] VITALS: O2SAT 87
[2023-04-11 14:48] VITALS: PULSE 87; O2SAT 94
[2023-04-11 14:50] VITALS: PULSE 108; O2SAT 96
[2023-04-11 15:00] VITALS: PULSE 90; O2SAT 95
--- NOTE | 2023-04-11 15:16 | HOMEO2EVAL ---
Evaluation was performed at [facility] Home Oxygen Evaluation RC: Home Oxygen (O2) Evaluation Start: 04/11/23 15:06 Freq: Status: Active Protocol: RPE Activity Type Activity Date Activity User E-sign Co-sign Detail Recorded Client Recorded Date Recorded By Document 04/11/23 14:45 JOE [email or web address] 04/11/23 15:16 JOE Document 04/11/23 14:48 JOE [email or web address] 04/11/23 15:16 JOE Document 04/11/23 14:50 JOE [email or web address] 04/11/23 15:16 JOE Document 04/11/23 15:00 JOE [email or web address] 04/11/23 15:16 JOE 04/11/23 04/11/23 04/11/23 14:45 14:48 14:50 Home O2 Evaluation [Oxygen] -Test Phase Resting Resting Exercise -Oxygen Delivery Room Air Nasal Cannula Nasal Cannula -Oxygen Flow Rate (L/min) 2 2 [Pulse Oximetry] -Pulse Oximetry (90-100 %) 87 L 94 96 [Pulse Rate] -Pulse Rate (60-100 beats/min) 87 108 H [Comments] -Home Oxygen Evaluation Comments Pt requires 2 L at rest and with activity [Charges] -Treatment Charges O2 Evaluation - Outpatient 04/11/23 15:00 Home O2 Evaluation [Oxygen] -Test Phase Resting -Oxygen Delivery Nasal Cannula -Oxygen Flow Rate (L/min) 2 [Pulse Oximetry] -Pulse Oximetry (90-100 %) 95 [Pulse Rate] -Pulse Rate (60-100 beats/min) 90 [Comments] -Home Oxygen Evaluation Comments [Charges] -Treatment Charges
--- NOTE | 2023-04-11 17:25 | WPDPFTINT ---
PFT Procedure Performed PFT Procedure Performed Spirometry with Pre/Post Bronchodilator Plethysmography (Lung Vol) Diffusing Cap (DLCO) Flow Vol Loop PFT Interpretation This is a pulmonary function test with pre and post-bronchodilator spirometry, plethysmography and diffusing capacity. The test was performed and results interpreted in accordance with the 2019 and 2005 ATS/ERS Task Force guidelines respectively using the Global Lung Function Initiative-2012 reference equations. Patient demonstrated good effort and cooperation. Reproducibility criteria were met. The quality of the pre bronchodilator spirometry maneuver was Grade A and post bronchodilator spirometry maneuver was Grade A. Findings: Spirometry: There is decreased maximal expiratory airflow at all lung volumes with concave expiratory flow tracing. The contour the inspiratory flow tracing is normal. The pre bronchodilator FVC is 2.67 L, 101% predicted. The pre bronchodilator FEV1 is 1.46 L, 72% predicted. The pre bronchodilator FEV1: FVC ratio is 55%. The post bronchodilator FVC is 2.89 L, representing an 8% increase. The post bronchodilator FEV1 is 1.50 L, representing a 3% increase. The post bronchodilator FEV1: FVC ratio is 52%. Plethysmography: The total lung capacity is 4.80 L, 94% predicted. The functional residual capacity is 2.95 L, 101% predicted. The residual volume is 2.09 L, 89% predicted. Diffusing capacity: The diffusing capacity unadjusted for hemoglobin and carboxyhemoglobin is 8.4, 42% predicted. The diffusing capacity adjusted for alveolar volume is 1.65, 40% predicted. In comparison to prior pulmonary function test on 04/05/2022 the post bronchodilator FVC is unchanged from 2.78 L to 2.89 L. The post bronchodilator FEV1 is unchanged from 1.38 L to 1.50 L. The total lung capacity is unchanged from 5.50 L to 4.80 L. The functional residual capacity is decreased from 3.64 L to 2.95 L. The residual volume has decreased from 2.84 L to 2.09 L. The diffusing capacity unadjusted for hemoglobin and carboxyhemoglobin is unchanged from 8.6 to 8.4. The diffusing capacity adjusted for alveolar volume is decreased from 2.23 to 1.65. Impression: There is a mild obstructive abnormality with a normal FEV1 and without significant improvement after inhaling a single dose of albuterol. The lung volumes are normal. The diffusing capacity unadjusted for hemoglobin and carboxyhemoglobin is moderately decreased and remains moderately decreased when adjusted for alveolar volume. In comparison to prior pulmonary function testing on 04/05/2022 there has been a greater than anticipated time dependent decrease in the functional residual capacity, residual volume, and diffusing capacity adjusted for alveolar volume with no significant change in the FVC, FEV1, total lung capacity or diffusing capacity unadjusted for hemoglobin and carboxyhemoglobin. Clinical correlation is recommended.
== END 2023-04-11 14:28 | disposition home or self-care (01) ==
PROVIDERS: PCP Physician Assistant; Visit Provider Internal Medicine Pulmonary Disease
DX: J44.9 Chronic obstructive pulmonary disease, unspecified (principal); Z87.891 Personal history of nicotine dependence; R94.2 Abnormal results of pulmonary function studies
CPT/HCPCS: 94060; 94618; 94726; 94729

== ENCOUNTER 2023-06-07 08:51 | Outpatient (CLI) | payer MEDICARE, SELFPAY ==
--- NOTE | ~2023-06-07 | MR_ITS ---
MRI of the thoracic spine Clinical History: Compression fractures Technique: Axial T2-weighted and gradient images, and sagittal T1-weighted, T2-weighted, and STIR supriya ges were acquired. COMPARISON: 10/10/2022 Findings: There is moderate acute compression fracture with loss of height and marrow edema of T10. T here is mild, acute compression fracture with minimal loss of height at the superior endplate region of T12. Chronic, stable compression fracture, moderate in degree, of T8 and T5. There is stable kypho sis of the thoracic spine. No significant disc bulge or herniation seen in the thoracic spine. No spinal canal stenosis or cord compression evident. Paravertebral soft tissues are unremarkable. Impression: Moderate, acute compression fracture of T10. Mild, acute compression fracture of T12. Stable chronic compression fractures of T5 and T8. Additional chronic compression fractures of the carlo mbar spine. Reviewed, dictated and finalized at [facility]. ING CARPENTER Impression: Moderate, acute compression fracture of T10. Mild, acute compression fracture of T12. Stable chronic compression fractures of T5 and T8. Additional chronic compressi on fractures of the lumbar spine.
--- NOTE | ~2023-06-07 | MR_ITS ---
MRI of the lumbar spine Clinical History: Compression fracture Technique: Axial T2-weighted images, and sagittal T1-weighted, T2-weighted, and and T2 fat-sat images were acquired. COMPARISON: 10/10/2022 Findings: There is acute moderate compression fracture of T10, and acute mild compression fracture of T12, with associated marrow edema and loss of height. There are stable chronic compression fractures of L1, L2, L3, and L4, moderate to severe in degree. No subluxation evident. At L1-L2, there is minimal disc bulge. No spinal canal stenosis. There is moderate bilateral neural f oraminal narrowing. At L2-L3, there is disc bulge and moderate to advanced facet arthropathy. There is minimal central ca nal stenosis, with severe bilateral neural foraminal narrowing, left worse than right. At L3-L4, there is disc bulge and severe facet arthropathy. No janeth central canal stenosis. There is severe bilateral neural foraminal narrowing. At L4-L5, disc bulge and severe facet arthropathy result in severe central canal stenosis/thecal sac compression, with severe bilateral neural foraminal narrowing. At L5-S1, disc bulge and severe facet arthropathy are present, with moderate central canal stenosis/t hecal sac compression. There is moderate bilateral neural foraminal narrowing. Paravertebral soft tissues are unremarkable. Impression: Acute moderate compression fracture of T10, and acute mild compression fracture of T12. Chronic moderate to severe compression fractures of L1, L2, L3, and L4. Advanced generative spondylosis of lumbar spine, as detailed above. Reviewed, dictated and finalized at [facility]. SORTER Impression: Acute moderate compression fracture of T10, and acute mild compression fracture of T12. Chronic moderate to severe compression fractures of L1, L2, L3, and L4. Advanced generative spondylosis of lumbar spine, as detailed above.
--- NOTE | ~2023-06-07 | XR_ITS ---
EXAMINATION: XR lumbar spine 6V w bending DATE: 06/07/2023 10:21 INDICATION: Low back pain TECHNIQUE: Anteroposterior, lateral in neutral, flexion and extension, and bilateral oblique views of the lumbar spine, and cone-down lateral view of the lumbosacral junction were obtained. COMPARISON: 10/09/2022 FINDINGS: Bone alignment is normal. There are chronic compression fractures of L1, L2, and L3 without significant change. No acute fracture is identified. Bone alignment is normal. No hypermobility is p resent with flexion or extension. The intervertebral disc spaces are maintained. Calcified atheroscle rosis is noted. There is multilevel mild facet joint osteoarthritis. IMPRESSION: 1. Chronic compression fractures of L1, L2, and L3 without significant change. 2. Mild lumbar spondylosis. Reviewed, dictated and finalized at location [facility]. [employer] DOOR [employer]CH[employer]IC
== END 2023-06-07 08:52 | disposition home or self-care (01) ==
PROVIDERS: PCP Physician Assistant; Visit Provider Anesthesiology Pain Medicine
DX: M81.0 Age-related osteoporosis without current pathological fracture (principal); R91.8 Other nonspecific abnormal finding of lung field; M47.896 Other spondylosis, lumbar region; S22.050D Wedge compression fracture of T5-T6 vertebra, subsequent encounter for fracture with routine healing; S22.060D Wedge compression fracture of T7-T8 vertebra, subsequent encounter for fracture with routine healing; X58.XXXD Exposure to other specified factors, subsequent encounter
CPT/HCPCS: 72114; 72146; 72148

== ENCOUNTER 2023-07-08 01:03 | Day surgery (SDC) | payer MEDICARE, SELFPAY ==
[2023-06-06 15:20] VITALS: BMI 21.4
--- NOTE | 2023-06-06 15:32 | PC.NURSE ---
Report to the Outpatient Waiting Room, entrance under the green pavilion located off [facility], at time __0600 on date __06/11/23 . Planned Procedure Time: ___0730 . Time changes happen often and if your time is changed the preop area will call you the afternoon before. - You and your visitor will be asked to self-screen and do not enter if you have any COVID symptoms. - A mask is optional within the hospital at this time. Patients may have clear liquids (water, carbonated beverages, clear teas, apple juice) until 3 hours prior to surgery (0430 AM) with a maximum of 20 ounces. - No food from midnight until time of surgery - Infants may have breast milk until 4 hours before surgery, infant formula 6 hours prior to surgery. - Children will be allowed to drink immediately following surgery. If applicable, please bring a bottle or sippy cup to assist with drinking. Juice, water, soda, and popsicles are readily available. For infants on formula, please bring formula the day of surgery. Pacifiers are allowed. Take the following medications with a SIP of water the morning of surgery: _DILTIAZEM, TRELEGY INHALER, & ALBUTEROL INHALER IF NEEDED_ DO NOT STOP ANY OF YOUR OTHER PRESCRIPTION MEDICATIONS PRIOR TO SURGERY ?EXCEPT THE FOLLOWING Medications to discontinue per DR. JOHNSON - _HU 5 DAYS PRIOR TO SURGERY - PT STATS LAST DOSE TAKEN WAS 06/05/23_ Date to take last dose Please no make-up, nail finnish, hairspray, perfume, deodorant, or body powder the day of surgery. No jewelry (including any body piercings) or valuables the day of surgery, leave them at home. Please take a shower or bath the night before, or the morning of, surgery with an antibacterial soap. Wear comfortable, loose fitting clothing. Children are encouraged to wear pajamas. - Jewelry must be removed prior to entering the operating room. Rings and piercings that are not removed may be cut off. - The hospital will not accept responsibility for valuables. - Please leave all valuables, including medications, at home the day of surgery. If you are going home after surgery, a licensed high lift driver must drive you home. - NO public transportation without another adult if you receive anesthesia. - We recommend that an adult stay with you for 24 hours following discharge. - We also recommend that you do not drive, make important decision, drink alcoholic beverages, or take any drugs that were not prescribed by your health care provider for at least 24 hours after your discharge time. For Pediatric surgeries, we recommend two adults accompany the child home. Follow any additional instructions given to you from your surgeon. If you or anyone in your household have experienced Covid symptoms in the past week, please notify your surgeon or the nurse liaison at the phone number below for possible testing. Telephone instructions given to _PATIENT_and asked if any additional questions and then verbalized understanding. Patient advised to call surgeon office or pre surgery nurse liaison [phone] if any additional questions.
--- NOTE | 2023-06-11 05:47 | PM.HPGS ---
History of Present Illness History of Present Illness Consent: Risks, benefits, and alternatives have been discussed and questions answered. Patient agrees to proceed with procedure. Chief complaint: thoracolumbar back pain w/ fx T10, T12 vert Narrative: Mary Kate Keith is a 78 year old female with history of stable COPD, chronic anticoagulation (Eliquis) for hx of DVT, as of yet uncharacterized lung mass and osteoporosis w/ multiple pathologic fractures who experiences recalcitrant, disabling acute upon chronic thoracolumbar back pain secondary to acute/subacute non-healing compression fractures at T10, T12 despite maximal conservative efforts (opioid and nonopioid analgesics, bracing, behavior modification and adequate time/rest) presenting today for balloon-assisted vertebral augmentation with bone biopsy under fluoroscopic guidance. Review of Systems Review of Systems: All systems reviewed & are unremarkable except as noted in HPI and below Cardiovascular: Cardiovascular: Reports no additional cardiovascular complaints Respiratory: Respiratory: Reports no additional respiratory complaints Musculoskeletal: Musculoskeletal: Reports back pain (thoracolumbar axial back pain with all movement, prolonged sitting/standing) Neurologic: Denies numbness, Denies radicular pain, Denies Sensory deficit (Neuro), Denies tingling, Denies paresthesias and Denies weakness Psychiatric: Psychiatric: Reports no additional psychiatric complaints PMFSH Past Medical History Medical History Abnormal nuclear stress test (03/2022) Cardiac catheterization on 04/02/2022 showed preserved left ventricular systolic function with minimal atherosclerosis of the proximal LAD and the proximal and mid RCA. Chronic anticoagulation Chronic obstructive pulmonary disease Chronic respiratory failure with hypoxia, on home oxygen therapy COPD with emphysema Coronary artery calcification Calcifications noted on chest CT in October 2019. Echocardiogram showed normal left ventricular systolic function with an ejection fraction of 65 to 70% as well as grade 1 diastolic dysfunction. Gastroesophageal reflux disease History of tobacco abuse 45 pack year smoking history, quit in October 2019. 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 Supraventricular tachycardia Surgical History Surgical History History of bladder suspension procedure History of breast augmentation History of cardiac catheterization (03/2022) History of partial hysterectomy Family History Family History Mother Family history of heart disease in male family member before age 55 Cerebrovascular accident Heart attack Sibling Family history of heart disease in male family member before age 55 Heart attack Cerebrovascular accident Transitional cell carcinoma Father Cerebrovascular accident Social History Social History Social History: Current lives at home with her 3 sons and 1 grandson. Surrogate decision maker Shahrzad Camacho, daughter Code Status: Full Code. Smoking packs per day: 1 Smoking cigarettes per day: 20.0 Years smoked: 60 Smoking pack-years: 60.00 Smoking status: Former smoker Tobacco type: cigarettes Second hand tobacco smoke exposure: No Smoking end date: 06/24/19 Additional smoking assessment comments: Smoked .75 packs per day but up to 1.5 - 2 packs per day for over a year. Alcohol intake: never Substance use: never Substance use type: does not use Lack of Transportation: No Lack of Food: Never True Current Housing: I Have Housing Concerned About Future Housing: No Difficulty Paying Gas/Electric Bills: No Difficulty Paying for Meds: No Curre
--- NOTE | 2023-06-11 06:09 | WPDHPUPDATE1 ---
History and Physical Update Update Date/Time: 06/11/23 06:09 History and Physical has been reviewed, including an updated exam of the patient. There are NO changes in the patient's condition. Risks, benefits, and alternatives have been discussed and questions answered. Patient agrees to proceed with procedure.
--- NOTE | 2023-07-02 13:44 | PC.NURSE ---
Report to the Outpatient Waiting Room, entrance under the green pavilion located off [facility], at time _1000_ on date _[id number]_. Planned Procedure Time: _1200_. Time changes happen often and if your time is changed the preop area will call you the afternoon before. - You and your visitor will be asked to self-screen and do not enter if you have any COVID symptoms. - A mask is optional within the hospital at this time. Patients may have clear liquids (water, carbonated beverages, clear teas, apple juice) until 3 hours prior to surgery with a maximum of 20 ounces. - No food from midnight until time of surgery Take the following medications with a SIP of water the morning of surgery: _DILTIAZEM, TRELEGY INHALER, & ALBUTEROL INHALER IF NEEDED_ DO NOT STOP ANY OF YOUR OTHER PRESCRIPTION MEDICATIONS PRIOR TO SURGERY ?EXCEPT THE FOLLOWING Medications to discontinue per DR. JOHNSON - _ELIQUIS 5 DAYS PRIOR TO SURGERY Date to take last mfwz__[id number] Please no make-up, nail bengali, hairspray, perfume, deodorant, or body powder the day of surgery. No jewelry (including any body piercings) or valuables the day of surgery, leave them at home. Please take a shower or bath the night before, or the morning of, surgery with an antibacterial soap. Wear comfortable, loose fitting clothing. - Jewelry must be removed prior to entering the operating room. Rings and piercings that are not removed may be cut off. - The hospital will not accept responsibility for valuables. - Please leave all valuables, including medications, at home the day of surgery. If you are going home after surgery, a licensed cdl team truck driver must drive you home. - NO public transportation without another adult if you receive anesthesia. - We recommend that an adult stay with you for 24 hours following discharge. - We also recommend that you do not drive, make important decision, drink alcoholic beverages, or take any drugs that were not prescribed by your health care provider for at least 24 hours after your discharge time. Follow any additional instructions given to you from your surgeon. If you or anyone in your household have experienced Covid symptoms in the past week, please notify your surgeon or the nurse liaison at the phone number below for possible testing. Telephone instructions given to __Betty___and asked if any additional questions and then verbalized understanding. Patient advised to call surgeon office or pre surgery nurse liaison [phone] if any additional questions.
[2023-07-08] VITALS (8 sets, daily range): BP systolic 121–148; BP diastolic 66–88; PULSE 60–87; RESP 10–22; TEMP 36.6; O2SAT 95–98
--- NOTE | ~2023-07-08 | XR_ITS ---
EXAMINATION: XR fluoroscopy no charge INDICATION: Augmentation of T10-T12. Bone biopsy of T10 TECHNIQUE: 23 intraoperative fluoroscopic images are submitted for review. Total fluoroscopic time wa s three minutes, 41 seconds. COMPARISON: None FINDINGS: Fluoroscopic images demonstrate vertebroplasty change at several levels as well as apparent bone biopsy. Please refer to procedure note for full details. IMPRESSION: 1. Please refer to procedure note for full details. Reviewed, dictated and finalized at location F. PMENT DRIVER
--- NOTE | 2023-07-08 07:21 | WPDANESEPPF ---
Anes - Initial Pre Proc Eval Procedure: Operation Date: 07/08/23 12:00 Proposed Procedures p Percutaneous Transpedicular Balloon Assisted Vertebral Augmentation of T10 and T12 Under Fluoroscopic Guidance, T10 Bone Biopsy - Otto Bains MD Date/Time: 07/08/23 07:21 Surgeon: Otto Bains MD Pre Op Diagnosis: thoracolumbar back pain w/ fx T10, T12 vert Patient Data Age: 78 Gender: F Height: 1.61 m Weight: 55.9 kg Allergies Allergy/AdvReac Type Severity Reaction Status Date / Time No Known Allergies Allergy Verified 07/08/23 10:03 Home Medications Medication Instructions Recorded Confirmed Type diltiazem HCl 180 mg 180 mg PO DAILY 06/20/21 07/08/23 History capsule,extended release 24 hr (Cardizem CD) albuterol sulfate 2.5 mg/3 mL 2.5 mg (3 mL) inhalation QID PRN 02/19/23 07/08/23 Rx (0.083 %) solution for nebulization shortness of breath or wheezing #180 mL apixaban 5 mg tablet (Eliquis) 5 mg PO BID 03/22/23 07/08/23 History fluticasone fur. 100 mcg-umeclid See Rx Instructions .Route 04/08/23 07/08/23 Rx 62.5 mcg-vilant 25 mcg .COMPLEX #60 ea inhalat.powder (Trelegy Ellipta) hydrocodone 5 mg-acetaminophen 325 1 tablet PO Q6-8H PRN Pain Rated 06/08/23 07/08/23 Rx mg tablet 4-6 #30 tabs pantoprazole 40 mg tablet,delayed See Rx Instructions .Route 07/04/23 07/08/23 Rx release .COMPLEX #90 tabs albuterol sulfate 90 mcg/actuation See Rx Instructions .Route 07/05/23 07/08/23 Rx aerosol inhaler .COMPLEX #8.5 grams Patient hx anesthesia problems: none Family hx anesthesia problems: none Results Review: All pre-operative results and documents have been reviewed as part of the pre-operative evaluation. [facility] Past Medical History Medical History (Updated 07/08/23 @ 07:22 by Karri Craig DO) Abnormal nuclear stress test (03/2022) Cardiac catheterization on 04/02/2022 showed preserved left ventricular systolic function with minimal atherosclerosis of the proximal LAD and the proximal and mid RCA. CAD (coronary artery disease) Chronic anticoagulation Chronic obstructive pulmonary disease Chronic respiratory failure with hypoxia, on home oxygen therapy COPD with emphysema Coronary artery calcification Calcifications noted on chest CT in October 2019. Echocardiogram showed normal left ventricular systolic function with an ejection fraction of 65 to 70% as well as grade 1 diastolic dysfunction. Gastroesophageal reflux disease History of tobacco abuse 45 pack year smoking history, quit in October 2019. 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 Supraventricular tachycardia Surgical History Surgical History History of bladder suspension procedure History of breast augmentation History of cardiac catheterization (03/2022) History of partial hysterectomy Family History Family History Mother Family history of heart disease in male family member before age 55 Cerebrovascular accident Heart attack Sibling Family history of heart disease in male family member before age 55 Heart attack Cerebrovascular accident Transitional cell carcinoma Father Cerebrovascular accident Social History Social History Social History: Current lives at home with her 3 sons and 1 grandson. Surrogate decision maker Shahrzad Camacho, daughter Code Status: Full Code. Smoking packs per day: 1 Smoking cigarettes per day: 20.0 Years smoked: 60 Smoking pack-years: 60.00 Smoking status: Former smoker Tobacco type: cigarettes Second hand tobacco smoke exposure: No Smoking end date: 06/24/19 Additional smoking assessment comments: Smoked .75 packs per day but up to 1.5 - 2 packs per day for over
--- NOTE | 2023-07-08 10:23 | PM.HPGS ---
History of Present Illness History of Present Illness Consent: Risks, benefits, and alternatives have been discussed and questions answered. Patient agrees to proceed with procedure. 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 Pain is disabling and unresponsive to conservative measures to include time, rest, oral and topical analgesics, opioid and nonopioid analgesics. Patient is intolerant of bracing. No radicular symptoms noted or neurologic deficit documented. Review of Systems Review of Systems: All systems reviewed & are unremarkable except as noted in HPI and below Constitutional: Constitutional: Reports no additional constitutional complaints Cardiovascular: Cardiovascular: Reports no additional cardiovascular complaints Respiratory: Respiratory: Reports no additional respiratory complaints Comments: Increased dyspnea with elevation of pain levels. Neurologic: Reports system reviewed and no additional complaints, except as documented Psychiatric: Psychiatric: Reports no additional psychiatric complaints [facility] Past Medical History Medical History (Updated 07/08/23 @ 07:22 by Karri Craig DO) Abnormal nuclear stress test (03/2022) Cardiac catheterization on 04/02/2022 showed preserved left ventricular systolic function with minimal atherosclerosis of the proximal LAD and the proximal and mid RCA. CAD (coronary artery disease) Chronic anticoagulation Chronic obstructive pulmonary disease Chronic respiratory failure with hypoxia, on home oxygen therapy COPD with emphysema Coronary artery calcification Calcifications noted on chest CT in October 2019. Echocardiogram showed normal left ventricular systolic function with an ejection fraction of 65 to 70% as well as grade 1 diastolic dysfunction. Gastroesophageal reflux disease History of tobacco abuse 45 pack year smoking history, quit in October 2019. 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 Supraventricular tachycardia Surgical History Surgical History History of bladder suspension procedure History of breast augmentation History of cardiac catheterization (03/2022) History of partial hysterectomy Family History Family History Mother Family history of heart disease in male family member before age 55 Cerebrovascular accident Heart attack Sibling Family history of heart disease in male family member before age 55 Heart attack Cerebrovascular accident Transitional cell carcinoma Father Cerebrovascular accident Social History Social History Social History: Current lives at home with her 3 sons and 1 grandson. Surrogate decision maker Shahrzad Camacho, daughter Code Status: Full Code. Smoking packs per day: 1 Smoking cigarettes per day: 20.0 Years smoked: 60 Smoking pack-years: 60.00 Smoking status: Former smoker Tobacco type: cigarettes Second hand tobacco smoke exposure: No Smoking end date: 06/24/19 Additional smoking assessment comments: Smoked .75 packs per day but up to 1.5 - 2 packs per day for over a year. Alcohol intake: never Substance use: never Substance use type: does not use Lack of Transportation: No Lack of Food: Never True Current Housing: I Have Housing Concerned About Future Housing: No Difficulty Paying Gas/Electric Bills: No Difficulty Paying for Meds: No Currently Unemployed: No Education: High School Dipl
--- NOTE | 2023-07-08 10:28 | WPDHPUPDATE1 ---
History and Physical Update Update Date/Time: 07/08/23 10:28 History and Physical has been reviewed, including an updated exam of the patient. There are NO changes in the patient's condition. Risks, benefits, and alternatives have been discussed and questions answered. Patient agrees to proceed with procedure.
[2023-07-08] MEDS: ceFAZolin 2 GM/D5W 50 ML 2 GM/50 ML BAG IVPB (12:59)
[2023-07-08] MEDS: LIDOCAINE HCL 2% PF INJ 5 ML VIAL 10 ML INFILTRATE (13:24)
[2023-07-08] MEDS: BUPivacaine HCL 0.5% PF 30 ML VIAL INFILTRATE (13:25)
--- NOTE | 2023-07-08 14:15 | W.PM.PROC2 ---
Procedure Note - Detailed Date of Procedure 07/08/23 Pre-op Diagnosis thoracolumbar back pain w/ fx T10, T12 vert Post-op Diagnosis Same Procedure Performed Percutaneous transplant balloon assisted vertebral augmentation ( kyphoplasty) T10 and T12 with intraosseous vertebral body bone biopsy under fluoroscopic guidance. Surgeon Otto Bains MD Anesthesia General and Local Indications Acute upon chronic , disabling and refractory back pain secondary to compression fractures at T10, T12 with nonunion secondary to postmenopausal osteoporosis a patient with a history of breast cancer. Description of Procedure INFORMED CONSENT: Risks, benefits and alternatives to the procedure were discussed in detail with the patient who expressed explicit understanding and consent to proceed. Patient was informed verbally and in written form regarding the risks associated with the procedure including the low risk of serious infection, meningitis, bleeding/bruising, allergic reaction or relative overdose of medications, dural puncture requiring surgical correction, pulmonary embolus/edema, extravasation of cement requiring medical and/or surgical intervention, worsening fracture, nerve or organ injury, paralysis, procedural site pain or discomfort, adjacent level fracture or disk injury, worsening pain and/or mobility, failure to treat and/or disfigurement/deformity. The patient expressed explicit understanding and consent to proceed. All materials required for the procedure were available prior to procedure start. Site and side was marked prior to procedure and confirmed in the presence of the patient. PROCEDURE IN DETAIL: After full informed consent was obtained, IV access was obtained without difficulty. The patient was escorted to the procedural suite. Supplemental Oxygen initiated to maintain O2 saturation between 92-99%. Careful positioning was undertaken and ASA standard monitors applied and checked routinely throughout the case. Prophylactic antibiotics (2 G IV Ancef) were administered prior to procedure start. Patient was placed in the prone position in optimal extension using pillows and the thoracolumbar spine was prepped and draped in the usual manner using alcohol scrub followed by broad application of ChloraPrep times 3, allowed to dry completely. Fluoroscopy in the AP and the lateral position was used with perfect linear projections at the T12 level to aid in the introduction of percutaneous trocar from a leftward approach (transpedicular approach) via a small stab skin incision using a #11 scalpel following adequate anesthesia via serial infiltration of a one-to-one admixture of 2% lidocaine and 0.25% bupivacaine through a 2 inch 27-gauge needle followed by a 22g Quincke spinal needle to anesthetize to periostium. A 10-gauge trocar with a claudia tip was introduced through the skin incision and docked on the left posterior pedicle of T12 in the superolateral (11 o'clock) position. Under live fluoroscopy, alternating between AP and lateral views, the trocar was advanced anteriorly, medially and inferiorly using a metal surgical mallet, taking care to advance only in the AP view, using lateral views to confirm depth and direction. In the AP view, as the tip of the trocar approached (but did not violate) the medial inferior border of the pedicle, lateral view was utilized to confirm advancement of the trocar through the pedicle and into the anterior third of the vertebral body. Intra-vertebral bone biopsies were obtained, sealed in separately labeled formalin-filled sample containers and sent to pathology for each level treated. Once safe placement of the trocar was ensured to my satisfaction, the balloon catheter was advanced until both radio-opaque markers were seen to extend outside of the distal end of the trocar. Slowly and intermittently, the balloon was filled with radiocontrast until an appropriately sized void was created and optimal height restored between the en
[2023-07-08] MEDS: fentaNYL CITRATE INJ (*CRX) 100 MCG/2 ML VIAL 25 MCG IV PUSH ×4 (14:40→15:32)
[2023-07-08] MEDS: ONDANSETRON INJ 4 MG/2 ML VIAL IV PUSH (14:52)
== END 2023-07-08 16:25 | disposition home or self-care (01) ==
PROVIDERS: PCP Physician Assistant; Visit Provider Anesthesiology Pain Medicine
PROC: (CPT 22513; principal; 2023-07-08 12:00)
DX: M80.0 Age-related osteoporosis with current pathological fracture (principal); J44.9 Chronic obstructive pulmonary disease, unspecified; K21.9 Gastro-esophageal reflux disease without esophagitis; Z79.01 Long term (current) use of anticoagulants; Z79.51 Long term (current) use of inhaled steroids; Z79.891 Long term (current) use of opiate analgesic; Z98.61 Coronary angioplasty status; Z87.891 Personal history of nicotine dependence; Z86.718 Personal history of other venous thrombosis and embolism; Z86.79 Personal history of other diseases of the circulatory system; Z85.3 Personal history of malignant neoplasm of breast; Z85.828 Personal history of other malignant neoplasm of skin; Z82.49 Family history of ischemic heart disease and other diseases of the circulatory system; Z80.52 Family history of malignant neoplasm of bladder
CPT/HCPCS: 22513; 22515; 88307; 88311; 99199; A9270; J0330; J0690; J2250; J2371; J2405; J2704; J3010

== ENCOUNTER 2024-05-19 14:32 | Emergency (ER) | payer MEDICARE, SELFPAY ==
--- NOTE | ~2024-05-19 | XR_ITS ---
XR chest 2V Ordering provider: Ramon Mason MD History: 79 years Female with . chest pain, WEAKNESS . Comparison: None. FINDINGS: MEDIASTINUM: The cardiac silhouette is not enlarged. LUNGS: No infiltrates, effusions or pneumothorax. Fibrotic changes in the lungs. OTHER: No free air under the diaphragm. Kyphosis. Old compression fracture with vertebral plasty at m ultiple levels. Compression fracture in T12, T6, T4 and T3 which may be acute or chronic. IMPRESSION: No acute cardiopulmonary pathology. Fibrotic changes of the lungs. Multilevel compression vertebral fractures of indeterminate age. Reviewed, dictated and finalized at location A. PING CAR CONDUCTOR
--- NOTE | 2024-05-19 14:33 | ECG_ITS ---
Test Date: 2024-05-19 14:40:43 Measurements Intervals [place] Rate: 73 P: 28 MA: 171 QRS: -22 QRSD: 82 T: 20 QT: 376 QTc: 416 Interpretive Statements SINUS RHYTHM DELAYED PRECORDIAL R/S TRANSITION INFERIOR INFARCT, AGE INDETERMINATE BASELINE ARTIFACT- I, II, III, AVR, AVL, AVF, V1, V5 ABNORMAL ECG No previous ECG available for comparison Electronically Signed On 05-19-2024 14:50:28 TOWEL ROLLING MACHINE OPERATOR by Wilton Torrez D.O.
[2024-05-19 14:35] VITALS: BP 147/76; PULSE 70; RESP 19; TEMP 36.6; O2SAT 99
[2024-05-19 14:49] LABS: Basophils Absolute Auto 0.1 K/mm3 (0.0-0.1); Basophils Percent Auto 1.3 % (0.2-1.2); Eosinophils Absolute Auto 0.3 K/mm3 (0-0.3); Eosinophils Percent Auto 3.7 % (0-4.4); Immature Granulocyte Absolute 0.03 K/mm3 (0.00-0.031); Immature Granulocyte Percent A 0.4 % (0-0.5); Lymphocytes Absolute Auto 2.23 K/mm3 (0.9-3.2); Lymphocytes Percent Auto 29.3 % (18.3-44.2); Mean Corpuscular HGB Conc 31.6 g/dl (32-36); Mean Corpuscular Hemoglobin 28.8 pg (26-34); Mean Corpuscular Volume 91.3 fl (80-100); Mean Platelet Volume 10.9 fl (7.4-10.4); Monocytes Absolute Auto 0.7 K/mm3 (0.1-0.6); Monocytes Percent Auto 8.6 % (2.6-8.5); Neutrophils Absolute Auto 4.3 K/mm3 (1.3-6.7); Neutrophils Percent Auto 56.7 % (45.5-73.1); Platelet Count Result 310 k/mm3 (150-375); Red Blood Count 4.16 M/mm3 (4.2-5.4); Red Cell Distribution Width 15.2 % (11.5-14.5); White Blood Count 7.6 K/mm3 (4.5-10.0)
[2024-05-19 15:00] LABS: Partial Thromboplastin Time 27.7 Seconds (22.3-36.8); Prothrombin Time 13.9 Seconds (11.1-14.7)
[2024-05-19 15:03] LABS: Alanine Aminotransferase 12 U/L (6-35); Albumin Level 4.3 g/dL (3.5-5.1); Alkaline Phosphatase 79 U/L (38-126); Anion Gap 6 mmol/L (4-12); Aspartate Amino Transferase 22 U/L (14-36); Bilirubin,Total 0.3 mg/dL (0.2-1.3); Blood Urea Nitrogen 9 mg/dL (7-17); Carbon Dioxide 26 mmol/L (22-30); Chloride 106 mmol/L (98-107); Estimated Glomerular Filt Rate > 60; Glucose 90 mg/dL (65-110); Lipase 139 U/L (23-300); Potassium 4.4 mmol/L (3.4-5.0); Sodium 138 mmol/L (137-145)
[2024-05-19 15:09] LABS: Atypical Lymphocytes Present; Platelet Estimate Adequate (Adequate); Schistocytes None Seen
[2024-05-19 15:13] LABS: Troponin I 0.018 ng/mL (0.000-0.034)
--- NOTE | 2024-05-19 16:10 | ED.CHESTPAIN ---
HPI - Chest Pain General Chief Complaint: Chest Pain <Oxana Jacobsen APRN - Last Filed: 05/19/24 16:14> Stated Complaint: cp <Oxana Jacobsen APRN - Last Filed: 05/19/24 16:14> Time Seen by Provider: 05/19/24 16:00 <Oxana Jacobsen APRN - Last Filed: 05/19/24 16:14> Focused HPI: Patient is a 79-year-old female who presents to the ER with increased shortness of breath, chest pain and back pain. She reports this is not a typical COPD exacerbation for her as there is more pain in her chest and back. Patient reports this discomfort started 2 days ago. She also endorses urinary symptoms. Patient is on 3 L nasal cannula at baseline due to her COPD diagnosis. Patient denies abdominal pain, lower extremity swelling, dizziness. GENERAL: Well-appearing, well-nourished, and in no acute distress. HEAD: Normocephalic, atraumatic. CHEST: Decreased bases on auscultation. ?No respiratory distress. HEART: Regular rate and rhythm.? NEURO: ?Alert and oriented x3. Patient screened in triage and initial orders placed.? ?Additional care and disposition to be based upon?diagnostic testing and treatment. <Oxana Jacobsen APRN - Last Filed: 05/19/24 16:14> History of Present Illness HPI narrative: Agree with HPI as described above <Ramon Mason MD - Last Filed: 05/19/24 19:04> Related Data Home Medications: Home Medications Medication Instructions Recorded Confirmed diltiazem HCl 180 mg 180 mg PO DAILY 06/20/21 07/08/23 capsule,extended release 24 hr (Cardizem CD) <Oxana Jacobsen APRN - Last Filed: 05/19/24 16:14> Allergies/Adverse Reactions: Allergies Allergy/AdvReac Type Severity Reaction Status Date / Time No Known Allergies Allergy Verified 05/19/24 16:26 <Oxana Jacobsen APRN - Last Filed: 05/19/24 16:14> Review of Systems Review of Systems: As reviewed above <Ramon Mason MD - Last Filed: 05/19/24 19:04> [facility] Past Medical History Medical History: Medical History Abnormal nuclear stress test (03/2022) Cardiac catheterization on 04/02/2022 showed preserved left ventricular systolic function with minimal atherosclerosis of the proximal LAD and the proximal and mid RCA. CAD (coronary artery disease) Chronic anticoagulation Chronic obstructive pulmonary disease Chronic respiratory failure with hypoxia, on home oxygen therapy COPD with emphysema Coronary artery calcification Calcifications noted on chest CT in October 2019. Echocardiogram showed normal left ventricular systolic function with an ejection fraction of 65 to 70% as well as grade 1 diastolic dysfunction. Gastroesophageal reflux disease History of tobacco abuse 45 pack year smoking history, quit in October 2019. 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 Supraventricular tachycardia <Oxana Jacobsen, PROFESSOR OF KINESIOLOGY - Last Filed: 05/19/24 16:14> Surgical History Surgical History: Surgical History History of bladder suspension procedure History of breast augmentation History of cardiac catheterization (03/2022) History of partial hysterectomy <Oxana Jacobsen, PROFESSOR OF KINESIOLOGY - Last Filed: 05/19/24 16:14> Family History Family History: Family History Mother Family history of heart disease in male family member before age 55 Cerebrovascular accident Heart attack Sibling Family history of heart disease in male family member before age 55 Heart attack Cerebrovascular accident Transitional cell carcinoma Father Cerebrovascular accident <Oxana Jacobsen, PROFESSOR OF KINESIOLOGY - Last Filed: 05/19/24 16:14> Social History Social History: Social History Social History: Current lives at home with her 3 sons and 1 grandson. Surrogate decision maker Shahrzad Camacho, daughter Code Status: Full Code. Smoking packs per day: 1 Smoking cigarettes per day: 20.0 Years smoked: 60 Smoking pack-years: 60.00 Smoking status: Former smoker Tobacco type: cigarettes Second hand tobacco smoke exposure: No Smoking end date: 06/24/19 Additional smoking assessment comments: Smoked .75 packs per day but up to 1.5 - 2 packs per day for over a year. Alcohol intake: never Substance use: never Substance use type: does not use Lack of Transportation: No Lack of Food: Never True Current Housing: I Have Housing Concerned About Future Housing: No Difficulty Paying Gas/Electric Bills: No Difficulty Paying for Meds: No Currently Unemployed: No Education: High School Diploma/GED Difficulty w/ Childcare or Family Care: No Living arrangements: with family Additional living arrangements comments: LIVES WITH 4 SONS Occupation/Education: retired Additional occupation/education comments: Worked 40 years [employer], , raised 8 children on her own. Spiritual care concerns: No <Oxana Jacobsen APRN - Last Filed: 05/19/24 16:14> Exam Narrative: GENERAL: Overall well-appearing not any acute distress, brightly colored hair and pleasant, cooperative. Wearing her nasal cannula appropriate HEAD: [Normocephalic, atraumatic.] EYES: [PERRLA and EOMI.] ENT: Nares clear, no rhinorrhea or epistaxis. Mucous membranes moist. NECK: Supple. CHEST: [Clear to auscultation. No respiratory distress.] Good air entry without any prolonged expiratory phase, no wheezing, rhonchi or rales. No significant tenderness with palpation of the chest wall HEART: [Regular rate and rhythm]. No murmur heard. [Normal peripheral pulses.] ABDOMEN: [Soft, nondistended], [nontender], [No rigidity or guarding] EXTREMITIES: Normal range of motion. [No edema.] SKIN: Warm, dry, no rash. NEURO: [No focal deficits]. Alert and oriented [x3.] PSYCH: [Normal mood and affect.] <Ramon Mason MD - Last Filed: 05/19/24 19:04> Course Vital Signs Vital signs: Vital Signs Temperature 36.6 C 05/19/24 14:35 Pulse Rate 70 05/19/24 14:35 Respiratory Rate 19 05/19/24 14:35 Blood Pressure 147/76 H 05/19/24 14:35 Pulse Oximetry 99 05/19/24 14:35 Temperature 36.6 C 05/19/24 14:35 Pulse Rate 62 05/19/24 16:30 Respiratory Rate 14 05/19/24 16:30 Blood Pressure 147/76 H 05/19/24 14:35 Pulse Oximetry 100 05/19/24 16:24 Oxygen Delivery Nasal Cannula 05/19/24 16:24 Oxygen Flow Rate 3 05/19/24 16:24 <Oxana Jacobsen APRN - Last Filed: 05/19/24 16:14> Vital Signs Temperature 36.6 C 05/19/24 14:35 Pulse Rate 70 05/19/24 14:35 Respiratory Rate 19 05/19/24 14:35 Blood Pressure 147/76 H 05/19/24 14:35 Pulse Oximetry 99 05/19/24 14:35 Temperature 36.6 C 05/19/24 14:35 Pulse Rate 62 05/19/24 16:30 Respiratory Rate 14 05/19/24 16:30 Blood Pressure 147/76 H 05/19/24 14:35 Pulse Oximetry 100 05/19/24 16:24 Oxygen Delivery Nasal Cannula 05/19/24 16:24 Oxygen Flow Rate 3 05/19/24 16:24 <Ramon Mason MD - Last Filed: 05/19/24 19:04> MDM - Chest Pain MDM Narrative Medical decision making narrative: 79-year-old female with a past medical history including COPD, coronary disease, vertebral fractures. She presents to the emergency department today with a chief complaint of chest pressure sensation. She states that has been present for last 2 days in the center of her chest and not radiating anywhere. She has been on her home oxygen 3 L 247 without any increased oxygen requirements or decreased utilization of any of her treatments for her COPD at home. She states this is not feeling like her COPD exacerbations and states that this does not feel like any of her previous heart issues. Denies any trauma, injuries or falls. She did have some previous fractures the vertebral column that underwent kyphoplasty at her followed up with outpatient by her specialists. Overall patient does appear well not any acute distress and very pleasant, cooperative, answers all my questions appropriately. A workup was ordered in triage including chest x-rays, EKGs, serial troponins, BNP, dimer, PT, PTT, CBC, CMP. Triage provider also gave her ipratropium and methylprednisolone in addition to 4 mg of morphine I gave her after my initial encounter. Patient does not exhibit any kind of wheezing, rhonchi rales or any prolonged expiratory phase which makes me less suspicious for COPD is the culprit. Given her age and risk factors cardiac etiology, blood clots such as a PE is possible, musculoskeletal chest pain also possible addition to generalized anxiety a she has a history of generalized anxiety disorder. Laboratory studies showed no leukocytosis or anemia. Normal platelet count. Normal coagulation studies, negative D-dimer. Chemistry panel showed normal electrolyte profile, unremarkable renal function panel, normal CMP. Troponins have been negative x2, BNP only mildly elevated 216. negative lipase. Chest x-ray was independently reviewed by myself and also interpreted by Radiology. No acute cardiopulmonary process seen, fibrotic changes of the lungs and the previous vertebral fractures seen. Patient was re-evaluated multiple times and had no persistent symptoms while here in the emergency department. Her chest pressure has since resolved to the medications and treatments here in the ED and she has an unremarkable cardiac workup with no concerns for thromboembolic event. I discussed plan of care going forward with the patient and ultimately appreciated decision making patient is stable and comfortable with being discharged home at this time with regular PCP follow-up. She was given strict return precautions including recurrence of the pain, development of new symptoms such as shortness of breath, worsening oxygen requirements, nausea, vomiting or any other concerning features and she will return if she develops any of the above. <Ramon Mason MD - Last Filed: 05/19/24 19:04> Medical Records Data Attestation: I reviewed the patient's medical records. <Ramon Mason MD - Last Filed: 05/19/24 19:04> Lab Data Attestation: I reviewed the patient's lab results. <Ramon Mason MD - Last Filed: 05/19/24 19:04> Result diagrams: 05/19/24 14:42 05/19/24 14:42 <Oxana Jacobsen APRN - Last Filed: 05/19/24 16:14> Labs: Lab Results 05/19/24 05/19/24 Range/Units 14:42 17:57 WBC 7.6 (4.5-10.0) K/mm3 RBC 4.16 L (4.2-5.4) M/mm3 Hgb 12.0 (12.0-15.0) g/dL Hct 38.0 (37.0-47.0) % MCV 91.3 (80-100) fl MCH 28.8 (26-34) pg MCHC 31.6 L (32-36) g/dl RDW 15.2 H (11.5-14.5) % Plt Count 310 (150-375) k/mm3 MPV 10.9 H (7.4-10.4) fl Immature Gran % (Auto) 0.4 (0-0.5) % Neut % (Auto) 56.7 (45.5-73.1) % Lymph % (Auto) 29.3 (18.3-44.2) % [place] % (Auto) 8.6 H (2.6-8.5) % Eos % (Auto) 3.7 (0-4.4) % Baso % (Auto) 1.3 H (0.2-1.2) % Lymph # (Auto) 2.23 (0.9-3.2) K/mm3 [place] # (Auto) 0.7 H (0.1-0.6) K/mm3 Eos # (Auto) 0.3 (0-0.3) K/mm3 Baso # (Auto) 0.1 (0.0-0.1) K/mm3 Abs Immat Gran (auto) 0.03 (0.00-0.031) K/mm3 Absolute Neuts (auto) 4.3 (1.3-6.7) K/mm3 Absolute Nucleated RBC 0.000 (0.0-0.012) K/mm3 Nucleated RBC % 0.0 (0.0-0.2) % Atypical Lymphocytes Present Platelet Estimate Adequate (Adequate) Schistocytes None seen PT 13.9 (11.1-14.7) Seconds INR 1.0 APTT 27.7 (22.3-36.8) Seconds D-Dimer 0.44 (<0.48) ug/mL Sodium 138 (137-145) mmol/L Potassium 4.4 (3.4-5.0) mmol/L Chloride 106 (98-107) mmol/L Carbon Dioxide 26 (22-30) mmol/L Anion Gap 6 (4-12) mmol/L BUN 9 (7-17) mg/dL Creatinine 0.90 (0.7-1.0) mg/dL Estim Creat Clear Calc Not Reportable Estimated GFR > 60 (59 - ) Glucose 90 (65-110) mg/dL Calcium 9.0 (8.4-10.2) mg/dL Total Bilirubin 0.3 (0.2-1.3) mg/dL AST 22 (14-36) U/L ALT 12 (6-35) U/L Alkaline Phosphatase 79 (38-126) U/L Troponin I 0.018 0.017 (0.000-0.034) ng/mL NT-Pro-B Natriuret Pep 216 H (19.9-100) pg/mL Total Protein 8.0 (6.3-8.2) g/dL Albumin 4.3 (3.5-5.1) g/dL Lipase 139 (23-300) U/L <Oxana Jacobsen, PROFESSOR OF KINESIOLOGY - Last Filed: 05/19/24 16:14> Lab Results 05/19/24 05/19/24 Range/Units 14:42 17:57 WBC 7.6 (4.5-10.0) K/mm3 RBC 4.16 L (4.2-5.4) M/mm3 Hgb 12.0 (12.0-15.0) g/dL Hct 38.0 (37.0-47.0) % MCV 91.3 (80-100) fl MCH 28.8 (26-34) pg MCHC 31.6 L (32-36) g/dl RDW 15.2 H (11.5-14.5) % Plt Count 310 (150-375) k/mm3 MPV 10.9 H (7.4-10.4) fl Immature Gran % (Auto) 0.4 (0-0.5) % Neut % (Auto) 56.7 (45.5-73.1) % Lymph % (Auto) 29.3 (18.3-44.2) % [place] % (Auto) 8.6 H (2.6-8.5) % Eos % (Auto) 3.7 (0-4.4) % Baso % (Auto) 1.3 H (0.2-1.2) % Lymph # (Auto) 2.23 (0.9-3.2) K/mm3 [place] # (Auto) 0.7 H (0.1-0.6) K/mm3 Eos # (Auto) 0.3 (0-0.3) K/mm3 Baso # (Auto) 0.1 (0.0-0.1) K/mm3 Abs Immat Gran (auto) 0.03 (0.00-0.031) K/mm3 Absolute Neuts (auto) 4.3 (1.3-6.7) K/mm3 Absolute Nucleated RBC 0.000 (0.0-0.012) K/mm3 Nucleated RBC % 0.0 (0.0-0.2) % Atypical Lymphocytes Present Platelet Estimate Adequate (Adequate) Schistocytes None seen PT 13.9 (11.1-14.7) Seconds INR 1.0 APTT 27.7 (22.3-36.8) Seconds D-Dimer 0.44 (<0.48) ug/mL Sodium 138 (137-145) mmol/L Potassium 4.4 (3.4-5.0) mmol/L Chloride 106 (98-107) mmol/L Carbon Dioxide 26 (22-30) mmol/L Anion Gap 6 (4-12) mmol/L BUN 9 (7-17) mg/dL Creatinine 0.90 (0.7-1.0) mg/dL Estim Creat Clear Calc Not Reportable Estimated GFR > 60 (59 - ) Glucose 90 (65-110) mg/dL Calcium 9.0 (8.4-10.2) mg/dL Total Bilirubin 0.3 (0.2-1.3) mg/dL AST 22 (14-36) U/L ALT 12 (6-35) U/L Alkaline Phosphatase 79 (38-126) U/L Troponin I 0.018 0.017 (0.000-0.034) ng/mL NT-Pro-B Natriuret Pep 216 H (19.9-100) pg/mL Total Protein 8.0 (6.3-8.2) g/dL Albumin 4.3 (3.5-5.1) g/dL Lipase 139 (23-300) U/L <Ramon Mason MD - Last Filed: 05/19/24 19:04> Imaging Data Attestation: I personally reviewed and interpreted this imaging study as follows: <Ramon Mason MD - Last Filed: 05/19/24 19:04> My impression: Impressions Chest X-Ray 05/19/24 15:00 IMPRESSION: No acute cardiopulmonary pathology. Fibrotic changes of the lungs. Multilevel compression vertebral fractures of indeterminate age. <Ramon Mason MD - Last Filed: 05/19/24 19:04> ECG Data EKG #1: Attestation: I personally reviewed and interpreted this ECG as follows: <Ramon Mason MD - Last Filed: 05/19/24 19:04> ECG completion date: 05/19/24 <Ramon Mason MD - Last Filed: 05/19/24 19:04> ECG completion time: 14:40 <Ramon Mason MD - Last Filed: 05/19/24 19:04> Prior ECG tracings: available for review <Ramon Mason MD - Last Filed: 05/19/24 19:04> Interpretation: Regular rate, leftward axis, no ST segment elevations, depressions or inversions. No signs of ectopy, normal QTC of 416, normal QRS of 82, normal DC interval 171. No interval changes from previous EKG. Overall normal sinus rhythm without signs of ischemia <Ramon Mason MD - Last Filed: 05/19/24 19:04> EKG Interpretation: normal rate, sinus rhythm, no ectopy, no ST changes and no acute changes <Ramon Mason MD - Last Filed: 05/19/24 19:04> Discharge Plan Discharge Clinical Impression: Chest pain, COPD with emphysema <Oxana Jacobsen APRN - Last Filed: 05/19/24 16:14> Patient Disposition: Home, Self-Care <Oxana Jacobsen APRN - Last Filed: 05/19/24 16:14> Condition: Stable <Oxana Jacobsen APRN - Last Filed: 05/19/24 16:14> Instructions: Antibiotic Form, Chest Pain (ED), Chest Wall Pain (ED) <Oxana Jacobsen APRN - Last Filed: 05/19/24 16:14> Additional Instructions: All your laboratory studies and cardiac workup showed no acute findings or concerns for your chest discomfort. You can safely follow-up with your primary care provider outpatient or return at any time if you develop any persistent pain or any new features or any other concerns that you wish to be evaluated for. <Oxana Jacobsen, HERMAN - Last Filed: 05/19/24 16:14> Prescriptions: New methocarbamol 500 mg tablet 500 mg PO HS Qty: 7 0RF No Action albuterol sulfate 2.5 mg /3 mL (0.083 %) solution for nebulization 2.5 mg inhalation QID PRN (Reason: shortness of breath or wheezing) Qty: 180 2RF Rx Instructions: Nebulize 3mL up to once daily as needed for shortness of breath or wheezing. diltiazem HCl [Cardizem CD] 180 mg capsule,extended release 24hr 180 mg PO DAILY pantoprazole 40 mg tablet,delayed release (DR/EC) See Rx Instructions .ROUTE .COMPLEX Qty: 90 0RF Dose Instruction: TAKE 1 TABLET BY MOUTH EVERY MORNING Rx Instructions: TAKE 1 TABLET BY MOUTH EVERY MORNING Eliquis 5 mg tablet See Rx Instructions .ROUTE .COMPLEX Qty: 60 0RF Dose Instruction: TAKE 1 TABLET BY MOUTH TWICE DAILY Rx Instructions: TAKE 1 TABLET BY MOUTH TWICE DAILY albuterol sulfate 90 mcg/actuation HFA aerosol inhaler See Rx Instructions .ROUTE .COMPLEX Qty: 8.5 4RF Dose Instruction: INHALE 2 PUFFS BY MOUTH FOUR TIMES DAILY NEEDED FOR SHORTNESS OF BREATH OR WHEEZING Rx Instructions: INHALE 2 PUFFS BY MOUTH FOUR TIMES DAILY NEEDED FOR SHORTNESS OF BREATH OR WHEEZING azithromycin 250 mg tablet See Rx Instructions PO .COMPLEX Qty: 6 0RF Rx Instructions: For 250 mg dose pack: take 500 mg today (day 1), then 250 mg for 4 days (days 2-5) PO Trelegy Ellipta 100-62.5-25 mcg blister with device See Rx Instructions .ROUTE .COMPLEX Qty: 60 0RF Dose Instruction: INHALE 1 PUFF BY MOUTH DAILY Rx Instructions: INHALE 1 PUFF BY MOUTH DAILY <Oxana Jacobsen APRN - Last Filed: 05/19/24 16:14> Follow-up/Referrals: Makayla,Ted Gastelum PA-C [Physician Shuttle Preparation Supervisor] - <Oxana Jacobsen APRN - Last Filed: 05/19/24 16:14> Time of Disposition: 18:53 <Oxana Jacobsen APRN - Last Filed: 05/19/24 16:14> 18:53 <Ramon Mason MD - Last Filed: 05/19/24 19:04> Quality HEART score for chest pain patients History: slightly suspicious <Ramon Mason MD - Last Filed: 05/19/24 19:04> ECG: normal <Ramon Mason MD - Last Filed: 05/19/24 19:04> Age: > or = to 65 years <Ramon Mason MD - Last Filed: 05/19/24 19:04> Risk factors: 1 or 2 risk factors <Ramon Mason MD - Last Filed: 05/19/24 19:04> Troponin: < or = to 1x normal limit <Ramon Mason MD - Last Filed: 05/19/24 19:04> Heart score: 3 <Ramon Mason MD - Last Filed: 05/19/24 19:04>
[2024-05-19 16:21] VITALS: PULSE 63; RESP 14
[2024-05-19] MEDS: IPRATROPIUM 0.5 MG/ALBUTEROL SULFATE 2.5 MG AMPUL.NEB 3 ML INHALATION (16:21)
[2024-05-19 16:24] VITALS: O2SAT 100
[2024-05-19] MEDS: methylPREDNISolone SOD SUCC 125 MG VIAL IV PUSH (16:26)
[2024-05-19 16:30] VITALS: PULSE 62; RESP 14
[2024-05-19 16:42] LABS: NT Pro B Type Natriuretic Pept 216 pg/mL (19.9-100)
[2024-05-19 16:45] LABS: D Dimer 0.44 ug/mL (<0.48)
[2024-05-19] MEDS: MORPHINE SULFATE (*CRX) 4 MG/ML INJ IV PUSH (17:19)
--- NOTE | 2024-05-19 17:57 | ECG_ITS ---
Test Date: 2024-05-19 17:59:02 Measurements Intervals [place] Rate: 59 P: 52 UT: 190 QRS: -32 QRSD: 76 T: 13 QT: 419 QTc: 417 Interpretive Statements SINUS BRADYCARDIA LEFT AXIS DEVIATION CONISDER INFERIOR INFARCT, AGE INDETERMINATE ABNORMAL ECG Compared to ECG 05/19/2024 14:40:43 HEART RATE HAS DECREASED Electronically Signed On 05-19-2024 19:14:16 STOCK ASSOCIATE by Wilton Torrez D.O.
[2024-05-19 18:44] LABS: Troponin I 0.017 ng/mL (0.000-0.034)
== END 2024-05-19 20:44 | disposition home or self-care (01) ==
PROVIDERS: Registered Nurse; Emergency Provider Student in an Organized Health Care Education/Training Program
DX: J43.9 Emphysema, unspecified (principal); R07.9 Chest pain, unspecified; I25.10 Atherosclerotic heart disease of native coronary artery without angina pectoris; J96.11 Chronic respiratory failure with hypoxia; Z99.81 Dependence on supplemental oxygen; K21.9 Gastro-esophageal reflux disease without esophagitis; G47.33 Obstructive sleep apnea (adult) (pediatric); M81.0 Age-related osteoporosis without current pathological fracture; Z85.828 Personal history of other malignant neoplasm of skin; Z86.711 Personal history of pulmonary embolism; Z90.711 Acquired absence of uterus with remaining cervical stump; Z79.01 Long term (current) use of anticoagulants; Z79.899 Other long term (current) drug therapy; R00.1 Bradycardia, unspecified; R94.31 Abnormal electrocardiogram [ECG] [EKG]
CPT/HCPCS: 36415; 71046; 80053; 83690; 83880; 84484; 85025; 85380; 85610; 85730; 93005; 94640; 96374; 96375; 99284; J2270; J2919

== ENCOUNTER 2024-09-28 09:50 | Outpatient (CLI) | payer MEDICARE, SELFPAY ==
[2024-09-28 10:30] VITALS: PULSE 80; O2SAT 94
[2024-09-28 10:35] VITALS: PULSE 97; O2SAT 93
[2024-09-28 10:45] VITALS: PULSE 86; O2SAT 94
--- OUTSIDE RECORDS SUMMARY | 2024-09-28 11:12 | XMS_ITS | Clinical Summary ---
Author Organization [facility] Address [facility] [place] [address] Care Team Providers Care Jewelry Mechanic Name Role Phone Ted Benavides Primary Care Provider Allergies No known active allergies Medications budesonide-form oteroL (SYMBICORT) 160-4.5 mcg/actuation inhaler INL 2 PFS PO Q 12 H 0 Active levalbuterol (XOPENEX) 1.25 mg/3 mL nebulizer solution [address] (PROTONIX) 20 mg EC tablet TK 1 T PO QAM 0 Active nicotine polacrilex (NICORETTE) 4 mg gum Chew 1 each (4 mg total) as needed for smoking cessation Active budesonide (PULMICORT) 0.5 mg/2 mL nebulizer solution 2 Active calcium carbonate-vitam in D3 1,250mg (500mg elemental) - 5 mcg (200 units) per tablet Take 1 tablet by mouth daily Active albuterol 2.5 mg /3 mL (0.083 %) nebulizer solution USE 1 VIAL IN NEBULIZER FOUR TIMES DAILY NEEDED SHORTNESS OF BREATH OR WHEEZING 3 Active albuterol HFA (PROVENTIL HFA,VENTOLIN HFA,PROAIR HFA) 90 mcg/actuation inhaler INHALE 2 PUFFS BY MOUTH FOUR TIMES DAILY NEEDED FOR SHORTNESS OF BREATH OR WHEEZING 3 Active apixaban (ELIQUIS) 5 mg tablet Take 1 tablet (5 mg total) by mouth 2 (two) times a day Active dilTIAZem XR (DILT-XR) 180 mg 24 hr capsule Take 1 capsule (180 mg total) by mouth daily 30 capsule 1 5 Active Active Problems Problem Noted Date Diagnosed Date Lipid screening 05/23/2023 Chest heaviness 02/21/2022 History of tobacco abuse 05/13/2020 PVC (premature ventricular contraction) 05/13/20 Chronic obstructive pulmonary disease 05/13/2020 PSVT (paroxysmal supraventricular tachycardia) 1 07/13/2019 Syncope and collapse 05/13/2020 Encounters Date Type Department Care Team Description 08/27/2024 Telephone [facility] [address] [place] [address] Tremaine Mane MD from Last 3 Months Medical History Medical History Date Comments Supraventricular tachycardia COPD (chronic obstructive pulmonary disease) (HC C) Sleep apnea Syncope Shortness of breath Family History Medical History Relation Name Comments Heart disease Brother Heart disease Father Heart disease Mother Stroke Mother Cancer Sister Relation Name Status Comments Brother Father Mother Sister Alive Social History Tobacco Use Types Packs/Day Years Used Date Smoking Tobacco: Former Cigarettes Q uit: 11/11/2019 Smokeless Tobacco: Never Tobacco Cessation:Counseling Given: Not Answered Alcohol Use Standard Drinks/Week Comments Not Currently 0 (1 standard drink = 0.6 oz pur e alcohol) AUDIT-C Answer Date Recorded Q1: How often do you have a drink containing alc ohol? Never 02/15/2020 Average Number of Drinks Not on file 020 Frequency of Binge Drinking Not on file 01/23 Comments Unknown Sex and Gender Information Value Date Recorded Sex Assigned at Not on file Legal Sex Female 6:02 AM INCINERATOR OPERATOR Gender Identity Not on file Sexual Orientation Not on file Obstetrics History Last Filed Vital Signs Vital Sign Reading Time Taken Comments Blood Pressure 112/78 05/23/2023 2:09 PM INCINERATOR OPERATOR Pulse 107 05/23/2023 2:09 PM INCINERATOR OPERATOR Temperature - - Respiratory Rate 14 05/23/2023 2:09 PM INCINERATOR OPERATOR Oxygen Saturation 96% 05/23/2023 2:09 PM INCINERATOR OPERATOR Inhaled Oxygen Concentration - - Weight 56.2 kg (124 lb) 05/23/2023 2:09 PM INCINERATOR OPERATOR Height 154.9 cm (5' 1 ) 05/23/2023 2:09 PM INCINERATOR OPERATOR Body Mass Index 23.43 05/23/2023 2:09 PM INCINERATOR OPERATOR Plan of Treatment Health Maintenance Due Date Last Done Comments Depression Screening 1945 Hepatitis C Screening 1945 Osteoporosis Screening-Bone Density Scan 1945 DTaP/Tdap/Td Vaccine (1 - Tdap) 1957 Hepatitis B Screening 1964 Well Visit 65+ 2011 Pneumococcal vaccine 65+ (2 of 2 - PCV) 06/05/2014 06/05/2013 Zoster Vaccine (2 of 3) 02/27/2015 01/02/2015 Fall Risk Assessment 05/23/2024 05/23/2023 Influenza Vaccine (Season Ended) 2025 03/12/2018, 04/17/2017, 06/20/2016 Insurance [facility] MEDIC[facility] Address: [facility] [id number] [place] [phone] [facility] MEDICARE Care Teams Jewelry Mechanic Relationship Specialty Start Date End Date Ted Benavides PA [address] [facility] [address] [place] [address] PCP - General Physician Integrated Pest Management Technician 02/15/20
--- OUTSIDE RECORDS SUMMARY | 2024-09-28 11:12 | XMS_ITS | Encounter Summary ---
Author Organization [facility] Address [address] [place] [address] Care Team Providers Care Baggage Clerk Name Role Phone Unavailable Primary Care Provider Unavailabl e Encounter Details Date Type Department Care Team (Late st Contact Info) Description 08/04/2019 Lab Requisition [facility] [address] [place] [id number] Zion Garces MD [address] [place], [place] [id number] Social History Tobacco Use Types Packs/Day Years Used Date Smoking Tobacco: Every Day Comments:CURRENTLY SMOLKING 0.5 PACKS PER DAY/SMOKING FOR 50 YEARS Alcohol Use Standard Drinks/Week Comments No 0 (1 standard drink = 0.6 oz pur e alcohol) Sex and Gender Information Value Date Recorded Sex Assigned at Not on file Gender Identity Not on file Sexual Orientation Not on file documented as of this encounter Plan of Treatment Not on file documented as of this encounter Procedures Procedure Name Priority Date/Time Associated Diagnosis Comments DERMATOPATHOLOGY Routine 08/03/2019 12:0 0 AM EVALUATOR documented in this encounter Results * DERMATOPATHOLOGY (08/03/2019 12:00 AM EVALUATOR) Case Report Dermatopathology Report Case: [id number] Authorizing Provider: Zion Garces MD Collected: 08/03/2019 12:00 AM Ordering Location: [facility] Received: 08/04/2019 06:58 AM Pathologist: Sinai Woodward MD Specimen: Skin, left slava bowl 0 4:31 PM [facility] Final Diagnosis Specimen A. SKIN, left slava bowl: FRAGMENTS OF ACTINIC KERATOSIS; EXTENDING TO THE BASE OF THE SPECIMEN (L57.0) (see microscopic description and comment) 0 4:31 PM [facility] Clinical History R/O neoplasm. 0 4:31 PM [facility] Gross Description Specimen A: Received is one formalin filled container labeled with the patient's name and designated left slava bowl. The specimen consists of a shave biopsy measuring [id number] & [id number], submitted with multiple fragments. Jar 0. 0 4:31 PM [facility] Microscopic Description Specimen A. SKIN, left slava bowl: Sections show fragments of epidermis with focal parakeratosis and disorderly maturation of keratinocytes with nuclear pleomorphism in the lower half of the epidermis. This process extends to the base of the specimen. The atypical cells fail to highlight with an immunostain for [id number]. Additional deeper sections were obtained and reviewed. COMMENT: A squamous cell carcinoma cannot be ruled out. 0 4:31 PM [facility] Disclaimer An external and internal positive and negative controls are appropriate for the histochemical, immunohistochemical and immunofluorescence stain(s) in this case (if any), except where stated explicitly. The performance characteristics of the stain(s) cited in this report were developed and its performance characteristic determined by the Dermatopathology Laboratory at [facility], directed by Dr. Nirav Anguiano. These tests need not be, and therefore are not, approved by the [place] Food and Drug Administration. The tests are used for clinical purposes. Billing Codes Specimen Charges Stain Charges 88242 1 10778 1 0 4:31 PM [facility] Embedded Images 0 4:31 PM [facility] Pathology/Cytolog y TISSUE SPECIMEN FROM SKIN / Unknown 08/03/2019 08/04/2019 6:58 AM EVALUATOR Zion Garces MD LAB - PATHOLOGY/CYTO LOGY ORDERABLES DERMATOPATHOLOGY LABORATORY [facility] - Department of Dermatology [address] [place] [address], [address] [place] [address], [facility] [phone] documented in this encounter Visit Diagnoses Not on filedocumented in this encounter
--- OUTSIDE RECORDS SUMMARY | 2024-09-28 11:12 | XMS_ITS | Continuity of Care Document ---
Author Organization [facility] Address [address] [place] [address] [place] [address] Phone Care Team Providers Care Planing Machine Operator Name Role Phone Douglas OD, Rafita Unavailable Unavailable Procedures Procedure Date Post-op Follow-up Visit Post-op Follow-up Visit Remove Cataract, Insert Lens Post-op Follow-up Visit Echo Exam Of Eye-Professional 0 Post-op Follow-up Visit Remove Cataract, Insert Lens IOLMaster Cataract Kit [facility] [employer] Office/outpatient Visit, Est Eye Exam & Treatment Office/outpatient Visit, [facility] Advance Directives Directive Yes / No Effective Date File Name No Information Encounters Encounter Description Practice Location Reason(s) For Visit Diagnoses Date Provider Providers Copied on Encounter [facility], [address] [place] [address] [address], [place], [place], [id number], [place] tel:[phone] [facility] [place] [facility] No Information 201 0 Douglas OD Rafita. [address] [facility] [address], [place], [address], [place]. tel:[phone] Referring Provider: Carlo Rosenberg [facility] [address], [place], [address]. tel:[phone] [facility], [address] [place] [address] [address], [place], [place], [id number], [place] tel:[phone] [facility] No Information 0 Doisy Edward. [facility] , [address], [place], [place], [facility], . tel:[phone] Referring Provider: Rafita Lopez, [facility] [address], [place], [facility]. tel:[phone] [facility], [address] [place] [address] [address], [place], [place], [id number], tel:[phone] [facility] No Information 0 Doisy Edward. [facility] , [address], [place], [facility], . tel:[phone] Referring Provider: Rafita Lopez, [facility] [address], [place], [facility]. tel:[phone] [facility], [address] [place] [address] [address], [place], [place], [id number], tel:[phone] [facility] No Information 0 Tylersy Edmedhat. [facility] , [address], [place], [facility], . tel:[phone] Referring Provider: Rafita Lopez, [facility] [address], [place], [facility]. tel:[phone] [facility], [address] [place] [address] [address], [place], [place], [id number], [place] tel:[phone] [facility] No Information 0 Doisy Edmedhat. [address] [place], [place] [address]ate Center , [address], [place], [facility], . tel:[phone] [facility], [address], [place], [place], [id number], [place] tel:[phone] [facility] No Information 5-201 0 Doisy Edward. [facility] , [address], [place], [facility], [place]. tel:[phone] Referring Provider: Rafita Lopez, [facility] [address], [place], [facility]. tel:[phone] [facility], [address] [place] [address] [address], [place], [place], [id number], [place] tel:[phone] [facility] No Information 3-201 0 Doisy Edmedhat. [facility] , [address], [place], [facility], [place]. tel:[phone] Referring Provider: Rafita Lopez, [address] [place], [place] [address], [place], [facility]. tel:[phone] Office/outpat ient Visit, [facility], [address] [place] [address] [address], [place], [place], [id number], [place] tel:[phone] [facility] No Information 6-201 0 Doisy Edmedhat. [address] [place], [place] [address]ate Center , [address], [place], [facility], [place]. tel:[phone] [facility], [address] [place] [address] [address], [place], [place], [id number], [place] tel:[phone] [facility] [place] No Information 9-201 0 Misael Eller. [address] [place], [place] [address]ate Center , [address], [place], [facility], [place]. tel:[phone] Office/outpat ient Visit, [facility], [address] [place] [address] [address], [place], [place], [id number], [place] tel:[phone] [facility] [place] No Information 2-201 0 Krishnasamy Fercho. [address] [place], [place] [address], [place], [address], [place]. tel:[phone] Family History Family Member Type Diagnosis Age At Onset No Information Payers Payer name Insurance type Covered constitution party ID Authoriza tion(s) No Information Social [...]
--- OUTSIDE RECORDS SUMMARY | 2024-09-28 11:12 | XMS_ITS | CONTINUITY OF CARE DOCUMENT ---
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 Kaylah August MD DIZZINESS TILT TABLE 12/03 NEG, CAROTIDS NEG active ? Kaylah August MD SYNCOPE NL HEAD CT AND CAROTID active Bea August MD ENCOUNTERS Date Type Provider Location Encounter Diag nosis - In-person encounter Office Visit Kaylah August MD [place] [facility] DIZZINESS TILT TABLE 12/03 NEG, CAROTIDS NEGSOB-11/02 NUC ANTAP DEF ISCHEMIA EF60, MILD CAD - In-person encounter Office Visit Kaylah August MD [place] [facility] SOB-11/02 NUC ANTAP DEF ISCHEMIA EF60, MILD CAD - In-person encounter Office Visit Kaylah August MD [place] [facility] SYNCOPE NL HEAD CT AND CAROTIDDIZZINESS TILT TABLE 12/03 NEG, CAROTIDS NEGSOB-11/02 NUC ANTAP DEF ISCHEMIA EF60, MILD CADTOBACCO ABUSE VITAL SIGNS Date Observation Value Provider blood pressure, diastolic 77 mm[Hg] Silvio Baron blood pressure, systolic 114 mm[Hg] Vickie saunders Loraine pulse rate 70 /min Ambika Martha edwards oxygen saturation, oximetry 99 % Ambika Loraine respiratory rate E&M 18 /min Ambika Manjarrez ale weight E&M 129.6 [lb_av] Ambika Tarun leong blood pressure, diastolic 67 mm[Hg] Scooter beck Morrell RN blood pressure, systolic 113 mm[Hg] Miles Gilmores RN pulse rate 82 /min Miles Gilmores RN oxygen saturation, oximetry 96 % Miles Gilmores RN respiratory rate E&M 14 /min Miles Elena marie RN weight E&M 138 [lb_av] Miles Gilmores RN blood pressure, diastolic 69 mm[Hg] Oscar Aponte blood pressure, systolic 109 mm[Hg] Tiffany Aponte pulse rate 84 /min Kailyn Aponte oxygen saturation, oximetry 98 % Kailyn Aponte respiratory rate E&M 14 /min Kailyn color[place] weight E&M 133 [lb_av] Kailyn Aponte ALLERGIES No Known Drug Allergies RESULTS Date Observation Value Provider Reference Range Interpretation Location 7 international normalized ratio (INR) 0.9 Jonelle Mejia 7 platelet count 283 10*3/mm3 Jonelle Mejia 7 hematocrit, blood 41.2 % Jonelle Mejia 7 creatinine, serum 0.70 mg/dL Jonelle Mejia 7 potassium, serum 4.5 mmol/L Jonelle Mejia 7 sodium, serum 142 mmol/L Jonelle Mejia HISTORY OF MEDICATION USE Medication Status Instructions Dates Provider Indications Com ments PRAVACHOL 20 MG ORAL TABLET active ONE TAB. DAILY Kaylah August MD OSCAL 500/200 D-3 TABLET active once a day Kailyn Aponte MECLIZINE HCL 25 MG ORAL TABLET active every 8hrs as needed Kailny Aponte VITAMIN D (ERGOCALCIFEROL ) 67732 UNIT ORAL CAPSULE active once month Kailyn Aponte PLAVIX 75 MG ORAL TABLET completed ONE TAB. DAILY - Kaylah August MD VITAMIN B12 TABLET active once a day Kailyn Fadi ASPIRIN 81 MG ORAL TABLET active once a day Kailyn Fadi SOCIAL HISTORY Date Observation Value Provider social history reviewed E&M reviewed Kaylah August MD smoking/tobacco cess ation, patient education and counseling yes Kaylah August MD social history reviewed E&M reviewed Miles Morrell RN social history E&M Marital Statu s: L peter with family/friends E thnicity: Kaylah August MD drug use none Kaylah August MD social history reviewed E&M reviewed Kaylah August MD physical exercise, f requency, days per week no [employer] caffeine use, averag e drinks per day yes [employer] alcohol use, average drinks per day none [employer] number of years as a smoker 10 years or m ore [employer] smoking status Smoker [facility] MENTAL STATUS Date Observation Value Provider assessment of judgme nt and insight E&M Alert and oriented to time, place and person. Mood and affect are normal. Kaylah August MD assessment of judgme nt and insight E&M Alert and oriented to time, place and person. Mood and affect are normal. Miles Morrell RN assessment of judgme nt and insight E&M Alert and oriented to time, place and person. Mood and affect are normal. Kaylah August MD INSURANCE PROVIDERS Payer name Policy type / Coverage type [place] red green party ID [facility] [id number] TREATMENT PLAN Date Name Performer hospital follow up: T he following medications were removed from the medication list: Plavix 75 Mg Tabs (Clopidogrel bisulfate) ..... One tab. daily Her updated medication list for this problem includes: Aspirin 81 Mg Tabs (Aspirin) ..... Once a day BP today: 114/77 Prior BP: 113/67 (11/06/2011) H CT: 41.2 (11/08/2011) Platelets: 283 (11/08/2011) C reat: 0.70 (11/08/2011) Na+: 142 (11/08/2011) K+: 4.5 (11/08/2011) Nuclear Stress Findings: 1. Abnormal myocardial perfusion imaging after vasodilator stress with Regadenoson. 2 . Normal left ventricular systolic function with a calculated ejection fraction of 60%. 3 . Myocardial scintigraphy demonstrates a small reversible anteroapical defect consistent with ischemia. 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 Preserved left ventricular function. Continue aggressive risk factor modification. Successful Angio-Seal placement. - [facility] (11/13/2011) Kaylah August MD hospital follow up: T he following medications were removed from the medication list: Plavix 75 Mg Tabs (Clopidogrel bisulfate) ..... One tab. daily Her updated medication list for this problem includes: Aspirin 81 Mg Tabs (Aspirin) ..... Once a day BP today: 114/77 Prior BP: 113/67 (11/06/2011) H CT: 41.2 (11/08/2011) Platelets: 283 (11/08/2011) C reat: 0.70 (11/08/2011) Na+: 142 (11/08/2011) K+: 4.5 (11/08/2011) Nuclear Stress Findings: 1. Abnormal myocardial perfusion imaging after vasodilator stress with Regadenoson. 2 . Normal left ventricular systolic function with a calculated ejection fraction of 60%. 3 . Myocardial scintigraphy demonstrates a small reversible anteroapical defect consistent with ischemia. 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 Preserved left ventricular function. Continue aggressive risk factor modification. Successful Angio-Seal placement. - [facility] (11/13/2011) Kaylah August MD hospital follow up: H er updated medication list for this problem includes: Aspirin 81 Mg Tabs (Aspirin) ..... Once a day Oscal 500/200 D-3 Tabs (Calcium carbonate-vitamin d tabs) ..... Once a day BP today: 114/77 Prior BP: 113/67 (11/06/2011) N uclear Stress Findings: 1. Abnormal myocardial perfusion imaging after vasodilator stress with Regadenoson. 2 . Normal left ventricular systolic function with a calculated ejection fraction of 60%. 3 . Myocardial scintigraphy demonstrates a small reversible anteroapical defect consistent with ischemia. 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 Preserved left ventricular function. Continue aggressive risk factor modification. Successful Angio-Seal placement. - [facility] (11/13/2011) H CT: 41.2 (11/08/2011) Platelets: 283 (11/08/2011) C reat: 0.70 (11/08/2011) Na+: 142 (11/08/2011) K+: 4.5 (11/08/2011) Kaylah August MD test results : H er updated medication list for this problem includes: Aspirin 81 Mg Tabs (Aspirin) ..... Once a day Plavix 75 Mg Tabs (Clopidogrel bisulfate) ..... One tab. daily & #13;BP today: / Prior BP: 109/69 (10/22/2011) N uclear Stress Findings: 1. Abnormal myocardial perfusion imaging after vasodilator stress with Regadenoson. 2 . Normal left ventricular systolic function with a calculated ejection fraction of 60%. 3 . Myocardial scintigraphy demonstrates a small reversible anteroapical defect consistent with ischemia. - (10/25/2011) BP today: 113/67 Prior BP: 109/69 (10/22/2011) N uclear Stress Findings: 1. Abnormal myocardial perfusion imaging after vasodilator stress with Regadenoson. 2 . Normal left ventricular systolic function with a calculated ejection fraction of 60%. 3 . Myocardial scintigraphy demonstrates a small reversible anteroapical defect consistent with ischemia. - (10/25/2011) Kaylah August MD test results : H er updated medication list for this problem includes: Aspirin 81 Mg Tabs (Aspirin) ..... Once a day Oscal 500/200 D-3 Tabs (Calcium carbonate-vitamin d tabs) ..... Once a day BP today: 113/67 Prior BP: 109/69 (10/22/2011) N uclear Stress Findings: 1. Abnormal myocardial perfusion imaging after vasodilator stress with Regadenoson. 2 . Normal left ventricular systolic function with a calculated ejection fraction of 60%. 3 . Myocardial scintigraphy demonstrates a small reversible anteroapical defect consistent with ischemia. - (10/25/2011) Kaylah August MD test results : H er updated medication list for this problem includes: Aspirin 81 Mg Tabs (Aspirin) ..... Once a day Plavix 75 Mg Tabs (Clopidogrel bisulfate) ..... One tab. daily & #13;BP today: / Prior BP: 109/69 (10/22/2011) N uclear Stress Findings: 1. Abnormal myocardial perfusion imaging after vasodilator stress with Regadenoson. 2 . Normal left ventricular systolic function with a calculated ejection fraction of 60%. 3 . Myocardial scintigraphy demonstrates a small reversible anteroapical defect consistent with ischemia. - (10/25/2011) Kaylah August MD hospital follow up: H er updated medication list for this problem includes: Aspirin 81 Mg Tabs (Aspirin) ..... Once a day Oscal 500/200 D-3 Tabs (Calcium carbonate-vitamin d tabs) ..... Once a day BP today: 109/69 Prior BP: / () Kaylah August MD hospital follow up: H er updated medication list for this problem includes: Aspirin 81 Mg Tabs (Aspirin) ..... Once a day Plavix 75 Mg Tabs (Clopidogrel bisulfate) ..... One tab. daily BP today: 109/69 Prior BP: / () Kaylah August MD hospital follow up: H er updated medication list for this problem includes: Aspirin 81 Mg Tabs (Aspirin) ..... Once a day Plavix 75 Mg Tabs (Clopidogrel bisulfate) ..... One tab. daily BP today: 109/69 Prior BP: / () Kaylah August MD
--- OUTSIDE RECORDS SUMMARY | 2024-09-28 11:12 | XMS_ITS | Referral Summary ---
Author Organization [facility] Address [address] [place] [address] Care Team Providers Care Payroll Master Name Role Phone Ted Benavides Primary Care Provider Encounters Date Type Department Care Team Description 08/27/2024 Telephone [facility] Cardiology [address] [place] [address] Tremaine Mane MD from Last 3 Months Allergies No known active allergies Medications budesonide-form [...] tachycardia) 1 07/13/2019 Syncope and collapse 05/13/2020 Social History Tobacco Use Types Packs/Day Years [...] on file Legal Sex Female 6:02 AM [facility] TECH Gender Identity Not on file Sexual Orientation Not on file Last Filed Vital Signs Vital Sign Reading Time Taken Comments Blood Pressure 112/78 05/23/2023 2:09 PM [facility] TECH Pulse 107 05/23/2023 2:09 PM [facility] TECH Temperature - - Respiratory Rate 14 05/23/2023 2:09 PM [facility] TECH Oxygen Saturation 96% 05/23/2023 2:09 PM [facility] TECH Inhaled Oxygen Concentration - - Weight 56.2 kg (124 lb) 05/23/2023 2:09 PM [facility] TE[facility] Height 154.9 cm (5' 1 ) 05/23/2023 2:09 PM [facility] TE[facility] Body Mass Index 23.43 05/23/2023 2:09 PM [facility] TECH Plan of Treatment Not on file Insurance T MEDICARE T MEDICARE Care Teams Payroll Master Relationship Specialty Start Date End Date Ted Benavides PA [address] [facility] [address] [place], [place] [id number] PCP - General Physician Clinical Training Specialist 02/15/20
--- OUTSIDE RECORDS SUMMARY | 2024-09-28 11:12 | XMS_ITS | Clinical Summary ---
Author Organization [facility] Address [address] [place] [address] Care Team Providers Care Van Loader Name Role Phone Unavailable Primary Care Provider Unavailabl e Source Comments [facility],non-owned Affiliates and Associated Physician Practices is amultiple site organization consisting of ambulatory clinics and hospital sitesin [place], [place], [place] and [place]. This disclosure is being madepursuant to the Care Everywhere program and may not contain all information available regarding this patient. Last updated 18.[facility] Allergies No known active allergies Medications * Be aware that medications may not be up to date on this document. Alwaysverify current medications with the patient. Medication Sig Dispensed Refills Start Date End Date Status vitamin B-12 (CYANOCOBALAMIN) 1000 MCG tablet Take 1,000 mcg by mouth once daily. Active clopidogrel (PLAVIX) 75 MG tablet Take 75 mg by mouth once daily. Active vitamin D, ergocalciferol, (DRISDOL) 19028 UNITS capsule Take 50,000 Units by mouth every 30 days. Active meclizine (ANTIVERT) 25 MG tablet Take 25 mg by mouth 3 times daily as needed. Active calcium-vitamin D (OS-NOEL 500 + D) 500-200 MG-UNIT tablet Take 1 Tab by mouth once daily. Active pantoprazole EC (PROTONIX) 20 MG tablet Take 20 mg by mouth as needed. Active Immunizations Name Administration Dates Next Due INFLUENZA VACCINE, HIGH-DOSE , QUADR. (FLUZONE HIGH-DOSE QUADRIVALENT; 65Y+), 0.7 ML (HD-IIV4) 03/12/2018,04/17/2017,06/20/2016 Social History Tobacco Use Types Packs/Day Years Used Date Smoking Tobacco: Every Day Tobacco Cessation:Ready to Q uit: No; Counseling Given: Yes Comments:CURRENTLY SMOLKING 0.5 PACKS PER DAY/SMOKING FOR 50 YEARS Alcohol Use Standard Drinks/Week Comments No 0 (1 standard drink = 0.6 oz pur e alcohol) Sex and Gender Information Value Date Recorded Sex Assigned at Not on file Gender Identity Not on file Sexual Orientation Not on file Last Filed Vital Signs Vital Sign Reading Time Taken Comments Blood Pressure 103/71 12/20/2011 10:23 AM CDT Pulse 65 12/20/2011 10:24 AM CDT Temperature 36.7 C (98 F) 12/20/2011 8:37 AM CDT Respiratory Rate 22 12/20/2011 10:24 AM CDT Oxygen Saturation 96% 12/20/2011 10:24 AM CDT Inhaled Oxygen Concentration - - Weight 54.4 kg (120 lb) 12/20/2011 8:37 AM CDT Height 162.6 cm (5' 4 ) 12/20/2011 8:37 AM CDT Body Mass Index 20.6 12/20/2011 8:37 AM CDT Plan of Treatment Health Maintenance Due Date Last Done Comments BONE DENSITY TESTING 1945 HEPATITIS C SCREENING 03/10/1964 DTAP/TDAP/TD VACCINES (1 - Tdap) 1965 PNEUMOCOCCAL VACCINE 50+ (1 of 2 - PCV) 1965 ZOSTER VACCINE (1 of 2) 1996 Respiratory Syncytial Virus (RSV) Vaccine Pt: or over 60 yrs (1 - 1-dose 75+ series) 2021 COVID-19 VACCINE (1 - 2023-2 5 season) 2024 DEPRESSION SCREENING 06/24/2024 MEDICARE AWV CALENDAR YEAR 2024 INFLUENZA VACCINE (Season Ended) 2025 03/12/2018, 04/17/2017, 06/20/2016 HEPATITIS B VACCINE Aged Out No longe r eligible based on patient's age to complete this topic HIB VACCINE Aged Out No longer eligi ble based on patient's age to complete this topic HPV VACCINE Aged Out No longer eligi ble based on patient's age to complete this topic MENINGOCOCCAL (Group B) VACCINE SHARED DECISION-MAKING Aged Out No longer eligible based on patient's age to complete this topic MENINGOCOCCAL GROUPS A/C/Y/W VACCINE Aged Out No longer eligible b ased on patient's age to complete this topic
--- NOTE | 2024-09-28 14:19 | PCRCNOTE ---
outpt home O2 eval faxed to office.
--- NOTE | 2024-09-28 17:12 | WPDPFTINT ---
PFT Procedure Performed PFT Procedure Performed Spirometry with Pre/Post Bronchodilator Plethysmography (Lung Vol) Diffusing Cap (DLCO) Flow Vol Loop PFT Interpretation This is a pulmonary function test with pre and post-bronchodilator spirometry, plethysmography and diffusing capacity. The test was performed and results interpreted in accordance with the 2019 and 2005 ATS/ERS Task Force guidelines respectively using the Global Lung Function Initiative-2012 reference equations. Patient demonstrated good effort and cooperation. Reproducibility criteria were met. The quality of the pre bronchodilator spirometry maneuver was Grade A and post bronchodilator spirometry maneuver was Grade A. Findings: Spirometry: There is decreased maximal expiratory airflow at all lung volumes with concave expiratory flow tracing. The contour the inspiratory flow tracing is normal. The pre bronchodilator FVC is 2.67 L, 106% predicted. The pre bronchodilator FEV1 is 1.34 L, 70% predicted. The pre bronchodilator FEV1: FVC ratio is 50%. The post bronchodilator FVC is 2.72 L, representing a 2% increase. The post bronchodilator FEV1 is 1.48 L, representing a 10% increase. The post bronchodilator FEV1: FVC ratio is 54%. Plethysmography: The total lung capacity is 5.11 L, 104% predicted. The functional residual capacity is 3.53 L, 125% predicted. The residual volume is 2.30 L, 100% predicted. Diffusing capacity: The diffusing capacity unadjusted for hemoglobin and carboxyhemoglobin is 7.0, 36% predicted. The diffusing capacity adjusted for alveolar volume is 1.90, 45% predicted. In comparison to previous pulmonary function testing performed on 04/11/2023 the post bronchodilator FVC is unchanged from 2.89 L to 2.72 L. The post bronchodilator FEV1 is unchanged from 1.50 L to 1.48 L. The total lung capacity is unchanged from 4.80 L to 5.11 L. The functional residual capacity is increased from 2.95 L to 3.53 L. The residual volume is unchanged from 2.09 L to 2.30 L. The diffusing capacity unadjusted for hemoglobin and carboxyhemoglobin is decreased from 8.4 to 7.0. The diffusing capacity adjusted for alveolar volume is increased from 1.65 to 1.90. Impression: There is a mild obstructive abnormality. There is no significant improvement after inhaling a single dose of albuterol. The lung volumes are normal. The diffusing capacity unadjusted for hemoglobin and carboxyhemoglobin is severely decreased and remains moderately decreased when adjusted for alveolar volume. In comparison to previous pulmonary function testing on 04/11/2023, there has been a greater than anticipated time dependent decrease in the diffusing capacity unadjusted for hemoglobin and carboxyhemoglobin. There has been a greater than anticipated time dependent increase in the functional residual capacity and the diffusing capacity adjusted for alveolar volume with no significant change in the FVC, FEV1, total lung capacity, or residual volume. Clinical correlation is recommended.
== END 2024-09-28 09:51 | disposition home or self-care (01) ==
PROVIDERS: Visit Provider Nurse Practitioner Family
DX: J44.9 Chronic obstructive pulmonary disease, unspecified (principal); J96.11 Chronic respiratory failure with hypoxia; R94.2 Abnormal results of pulmonary function studies
CPT/HCPCS: 94060; 94618; 94726; 94729

== ENCOUNTER 2025-03-02 14:59 | Emergency (ER) | payer MEDICARE, SELFPAY ==
--- OUTSIDE RECORDS SUMMARY | 2010-03-29 03:00 | XMS_ITS | Continuity of Care Document ---
Author Organization [facility] Address [address] [place] [address] [place] [address] Phone Care Team Providers Care Undercover Cop Name Role Phone Douglas OD, Rafita Unavailable Unavailable Procedures Procedure Date Post-op Follow-up Visit Post-op Follow-up Visit Remove Cataract, Insert Lens Post-op Follow-up Visit Echo Exam Of Eye-Professional 0 Post-op Follow-up Visit Remove Cataract, Insert Lens IOLMaster Cataract Kit [facility] [employer] Office/outpatient Visit, Est Eye Exam & Treatment Office/outpatient Visit, [facility] Advance Directives Directive Yes / No Effective Date File Name No Information Encounters Encounter Description Practice Location Reason(s) For Visit Diagnoses Date Provider Providers Copied on Encounter [facility], [address] [place] [address] [address], [place], [place], [id number], [place] tel:[phone] [facility] [place] [facility] No Information 201 0 Douglas OD Rafita. [facility] [facility] [address], [place], [address], [place]. tel:[phone] Referring Provider: Carlo [facility]berg [facility] [address], [place], [address]. tel:[phone] [facility], [address] [place] [address] [address], [place], [place], [id number], [place] tel:[phone] [facility] No Information 0 Doisy Edward. [facility] , [address], [place], [place], [facility], . tel:[phone] Referring Provider: Rafita Lopez, [facility] [address], [place], [facility]. tel:[phone] [facility], [address] [place] [address] [address], [place], [place], [id number], tel:[phone] [facility] No Information 0 Doisy Edward. [facility] , [address], [place], [facility], . tel:[phone] Referring Provider: Rafita Lopez, [facility] [address], [place], [facility]. tel:[phone] [facility], [address] [place] [address] [address], [place], [place], [id number], tel:[phone] [facility] No Information 0 Tylersy Edmedhat. [facility] , [address], [place], [facility], . tel:[phone] Referring Provider: Rafita Lopez, [facility] [address], [place], [facility]. tel:[phone] [facility], [address] [place] [address] [address], [place], [place], [id number], [place] tel:[phone] [facility] No Information 0 Doisy Edmedhat. [address] [place], [place] [address]ate Center , [address], [place], [facility], . tel:[phone] [facility], [address], [place], [place], [id number], [place] tel:[phone] [facility] No Information 5-201 0 Doisy Edward. [facility] , [address], [place], [facility], [place]. tel:[phone] Referring Provider: Rafita Lopez, [facility] [address], [place], [facility]. tel:[phone] [facility], [address] [place] [address] [address], [place], [place], [id number], [place] tel:[phone] [facility] No Information 3-201 0 Doisy Edmedhat. [facility] , [address], [place], [facility], [place]. tel:[phone] Referring Provider: Rafita Lopze, [address] [place], [place] [address]ate [address], [place], [facility]. tel:[phone] Office/outpat ient Visit, [facility], [address] [place] [address] [address], [place], [place], [id number], [place] tel:[phone] [facility] [place] No Information 6-201 0 Doisy Edmedhat. [address] [place], [place] [address]ate Center , [address], [place], [facility], [place]. tel:[phone] [facility], [address] [place] [address] [address], [place], [place], [id number], [place] tel:[phone] [facility] [place] No Information 9-201 0 Misael Eller. [address] [place], [place] [address]ate Center , [address], [place], [facility], [place]. tel:[phone] Office/outpat ient Visit, [facility], [address] [place] [address] [address], [place], [place], [id number], [place] tel:[phone] [facility] [place] No Information 2-201 0 Krishnasamy Fercho. [address] [place], [place] [address]ate [address], [place], [address], [place]. tel:[phone] Family History Family Member Type Diagnosis Age At Onset No Information Payers Payer name Insurance type Covered democrat ID Authoriza tion(s) No Information Social History Type Description Quantity Date Captured Comments Sex Female Smoking Status No Information Chief Complaint And Reason For Visit No Information Reason For Referral Reason For Referral No Information History Of Present Illness Encounter Date Complaint History Of Prese nt Illness No Information Functional Status Date Functional Assessmen t No Information Instructions Date Instruction Additional Infor mation No Information Assessments Type Assessment Date No Information Patient Care Teams Name Effective Dates (start - stop) Status Members No Information
--- OUTSIDE RECORDS SUMMARY | 2010-03-29 03:00 | XMS_ITS | Continuity of Care Document ---
Author Organization [facility] Address [address] [place] [address] [place] [address] Phone Care Team Providers Care Clinical Dental Technician Name Role Phone Douglas OD, Rafita Unavailable Unavailable Procedures Procedure Date Post-op Follow-up Visit Post-op Follow-up Visit Remove Cataract, Insert Lens Post-op Follow-up Visit Echo Exam Of Eye-Professional 0 Post-op Follow-up Visit Remove Cataract, Insert Lens IOLMaster Cataract Kit [facility] [employer] Office/outpatient Visit, Est Eye Exam & Treatment Office/outpatient Visit, [facility] Advance Directives Directive Yes / No Effective Date File Name No Information Encounters Encounter Description Practice Location Reason(s) For Visit Diagnoses Date Provider Providers Copied on Encounter [facility], [address] [place] [address] [address], [place], [place], [id number], [place] tel:[phone] [facility] [place] [facility] No Information 201 0 Douglas OD Rafita. [address] [facility] [address], [place], [address], [place]. tel:[phone] Referring Provider: Carlo Rosenberg [facility] [address], [place], [address]. tel:[phone] [facility], [address] [place] [address] [address], [place], [place], [address], [place] tel:[phone] [facility] No Information 0 Doisy Edward. [facility] , [address], [place], [place], [facility], . tel:[phone] Referring Provider: Rafita Lopez, [facility] [address], [place], [facility]. tel:[phone] [facility], [address] [place] [address] [address], [place], [place], [address], tel:[phone] [facility] No Information 0 Doisy Edward. [facility] , [address], [place], [facility], . tel:[phone] Referring Provider: Rafita Lopez, [facility] [address], [place], [facility]. tel:[phone] [facility], [address] [place] [address] [address], [place], [place], [id number], tel:[phone] [facility] No Information 0 Tylersy Edmedhat. [facility] , [address], [place], [facility], . tel:[phone] Referring Provider: Rafita Lopez, [facility] [address], [place], [facility]. tel:[phone] [facility], [address] [place] [address] [address], [place], [place], [address], [place] tel:[phone] [facility] No Information 0 Doisy Edmedhat. [address] [place], [place] [address]ate Center , [address], [place], [facility], . tel:[phone] [facility], [address], [place], [place], [address], [place] tel:[phone] [facility] No Information 5-201 0 Doisy Edward. [facility] , [address], [place], [facility], [place]. tel:[phone] Referring Provider: Rafita Lopez, [facility] [address], [place], [facility]. tel:[phone] [facility], [address] [place] [address] [address], [place], [place], [id number], [place] tel:[phone] [facility] No Information 3-201 0 Doisy Edmedhat. [facility] , [address], [place], [facility], [place]. tel:[phone] Referring Provider: Rafita Lopez, [address] [place], [place] [address]ate Center [address], [place], [facility]. tel:[phone] Office/outpat ient Visit, [facility], [address] [place] [address] [address], [place], [place], [address], [place] tel:[phone] [facility] [place] No Information 6-201 0 Doisy Edmedhat. [address] [place], [place] [address]ate Center , [address], [place], [facility], [place]. tel:[phone] [facility], [address] [place] [address] [address], [place], [place], [address], [place] tel:[phone] [facility] [place] No Information 9-201 0 Misael Eller. [address] [place], [place] [address]ate Center , [address], [place], [facility], [place]. tel:[phone] Office/outpat ient Visit, [facility], [address] [place] [address] [address], [place], [place], [address], [place] tel:[phone] [facility] [place] No Information 2-201 0 Krishnasamy Fercho. [address] [place], [place] [address]ate [address], [place], [address], [place]. tel:[phone] Family History Family Member Type Diagnosis Age At Onset No Information Payers Payer name Insurance type Covered alliance party ID Authoriza tion(s) No Information Social History [...]
[2025-03-02] VITALS (9 sets, daily range): BP systolic 111–129; BP diastolic 68–91; PULSE 85–89; RESP 16–26; TEMP 36.6–37.1; O2SAT 94–100
--- NOTE | ~2025-03-02 | CT_ITS ---
EXAMINATION: CT brain wo con DATE: 03/02/2025 16:59 INDICATION: Headache TECHNIQUE: Computed tomography (CT) of the head was performed without intravenous contrast. The dose-length product was 605.33 mGy-cm. COMPARISON: 01/23/2020 FINDINGS: No acute intracranial hemorrhage. No mass effect. No midline shift. No hydrocephalus. No skull fracture. Visualized paranasal sinuses and mastoid air cells are clear. There are several low density regions scattered throughout the periventricular and deep white matter which are favored to represent chronic ischemic white matter change. Cerebral atrophy appropriate for the patient's age. IMPRESSION: 1. No acute intracranial hemorrhage. No mass effect. 2. Probable chronic ischemic white matter change. 3. Cerebral atrophy appropriate for the patient's age. Reviewed, dictated and finalized at location Q.
--- NOTE | ~2025-03-02 | XR_ITS ---
EXAMINATION: XR chest 1V portable 03/02/2025 16:09 INDICATION: Dyspnea. TECHNIQUE:A single portable AP upright frontal image of the chest was obtained. COMPARISON: 05/19/2024 FINDINGS: Heart is not enlarged. No pneumothorax. No pleural effusion. No free air under the diaphragm. Kyphoplasty is in the thoracic spine, grossly unchanged. Small opacities in the lower lungs. Emphysema. IMPRESSION: 1. Small opacities in the lower lungs which represents atelectasis/scarring or infiltrates. 2. Emphysema. Reviewed, dictated and finalized at location Q.
--- NOTE | 2025-03-02 15:53 | ECG_ITS ---
Test Date: 2025-03-02 16:01:41 Measurements Intervals [place] Rate: 84 P: 24 AR: 168 QRS: -30 QRSD: 86 T: 15 QT: 358 QTc: 426 Interpretive Statements SINUS RHYTHM BORDERLINE LEFT AXIS DEVIATION [QRS AXIS < -20] CONSIDER PREVIOUS INFERIOR INFARCTION ABNORMAL ELECTROCARDIOGRAM Compared to ECG 05/19/2024 17:59:02 NO DIFFERENCE Electronically Signed On 03-03-2025 15:55:53 CDT by Cristian Brunner M.D.
[2025-03-02] MEDS: ALBUTEROL SULFATE NEB 2.5 MG/3 ML INH INHALATION (16:16)
--- OUTSIDE RECORDS SUMMARY | 2025-03-02 16:22 | XMS_ITS | Clinical Summary ---
Author Organization [facility] Address [address] [place] [address] Care Team Providers Care Rib Trim Separator Name Role Phone Unavailable Primary Care Provider Unavailabl e Source Comments [facility],non-owned Affiliates and Associated Physician Practices is amultiple site organization consisting of ambulatory clinics and hospital sitesin [place], [place], [place] and [place]. This disclosure is being madepursuant to the Care Everywhere program and may not contain all information available regarding this patient. Last updated 18.[facility] Allergies No known active allergies Medications * Be aware that medications may not be up to date on this document. Alwaysverify current medications with the patient. vitamin B-12 (CYANOCOBALAMIN) 1000 MCG tablet Take 1,000 mcg by mouth once daily. Active clopidogrel (PLAVIX) 75 MG tablet Take 75 mg by mouth once daily. Active vitamin D, ergocalciferol, (DRISDOL) 15929 UNITS capsule Take 50,000 Units by mouth every 30 days. Active meclizine (ANTIVERT) 25 MG tablet Take 25 mg by mouth 3 times daily as needed. Active calcium-vitamin D (OS-NOEL 500 + D) 500-200 MG-UNIT tablet Take 1 Tab by mouth once daily. Active pantoprazole EC (PROTONIX) 20 MG tablet Take 20 mg by mouth as needed. 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 Gender Identity Not on file Sexual Orientation [...] 8:37 AM CDT Height 162.6 cm (5' 4) 12/20/2011 8:37 AM CDT Body Mass Index [...] yrs (1 - 1-dose 75+ series) 2021 DEPRESSION SCREENING 06/24/2024 MEDICARE AWV CALENDAR YEAR 2024 COVID-19 VACCINE (1 - 2023-2 5 season) 2025 INFLUENZA VACCINE (#1) 2025 8, 04/17/2017, 06/20/2016 HEPATITIS B VACCINE Aged Out [...] on patient's age to complete this topic Insurance AETNA AETNA AETNA MEDICARE ADV SELF PAY NO INSURANCE Member Subscriber Plan / Payer (Ef fective for All Dates) Name:Mary Kate Keith Member ID:Not on file Relation to Subscriber:Not on file Name:MARY KATE KEITH Subscriber ID:Not on file (Home) Address: [address] [place] [id number] Payer ID:Not on file Group ID:Not on file Type:Self Pay Address: [place], [place]
--- OUTSIDE RECORDS SUMMARY | 2025-03-02 16:22 | XMS_ITS | Clinical Summary ---
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 Gender Identity Not on file Sexual Orientation Not on file Obstetrics History Last Filed Vital Signs Vital Sign Reading Time Taken Comments Blood Pressure 112/78 05/23/2023 2:09 PM ROOFING TECHNICIAN Pulse 107 05/23/2023 2:09 PM ROOFING TECHNICIAN Temperature - - Respiratory Rate 14 05/23/2023 2:09 PM ROOFING TECHNICIAN Oxygen Saturation 96% 05/23/2023 2:09 PM ROOFING TECHNICIAN Inhaled Oxygen Concentration - - Weight 56.2 kg (124 lb) 05/23/2023 2:09 PM ROOFING TECHNICIAN Height 154.9 cm (5' 1) 05/23/2023 2:09 PM ROOFING TECHNICIAN Body Mass Index 23.43 05/23/2023 2:09 PM ROOFING TECHNICIAN Plan of Treatment Health Maintenance Due Date Last Done Comments Depression Screening 1945 Hepatitis C Screening 1945 Osteoporosis Screening-Bone Density Scan 1945 DTaP/Tdap/Td Vaccine (1 - Tdap) 1957 Hepatitis B Screening 1964 Well Visit 65+ 2011 Pneumococcal vaccine 65+ (2 of 2 - PCV) 06/05/2014 06/05/2013 Zoster Vaccine (2 of 3) 02/27/2015 01/02/2015 Fall Risk Assessment 05/23/2024 05/23/2023 Influenza Vaccine (#1) 2025 8, 04/17/2017, 06/20/2016 Insurance AETNA MEDICARE Care Teams Space Control Supervisor Relationship Specialty Start Date End Date Ted Benavides PA [address] [place] [address] PCP - General Physician Senior Assistant Manager 02/15/20
--- OUTSIDE RECORDS SUMMARY | 2025-03-02 16:22 | XMS_ITS | Encounter Summary ---
Author Organization [facility] Address [address] [place] [address] Care Team Providers Care Blunger Loader Name Role Phone Unavailable Primary Care Provider Unavailabl e Encounter Details Date Type Department Care Team (Late st Contact Info) Description 08/04/[address] 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 Derm[facility] Lab Received: 08/04/2019 06:58 AM Pathologist: Sinai Woodward MD Specimen: Skin, left slava bowl 0 4:31 PM [facility] DERMATOPATHOLOGY LABORATORY Final Diagnosis Specimen A. SKIN, left slava bowl: FRAGMENTS OF ACTINIC KERATOSIS; EXTENDING TO THE BASE OF THE SPECIMEN (L57.0) (see microscopic description and comment) 0 4:31 PM [facility] DERMATOPATHOLOGY LABORATORY at [address] [facility] Clinical History R/O neoplasm. 0 4:31 PM [facility] DERMATOPATHOLOGY [facility]OR[facility] Gross Description Specimen A: Received is one formalin filled container labeled with the patient's name and designated left slava bowl. The specimen consists of a shave biopsy measuring [id number] & [id number], submitted with multiple fragments. Jar 0. 0 4:31 PM [facility] DERMATOPATHOLOGY LABORATORY Microscopic Description Specimen A. [...] cannot be ruled out. 0 4:31 PM [facility] DERMATOPATHOLOGY LABORATORY Disclaimer An external and internal positive and negative controls are appropriate for the histochemical, immunohistochemical and immunofluorescence stain(s) in this case (if any), except where stated explicitly. The performance characteristics of the stain(s) cited in this report were developed and its performance characteristic determined by the Dermatopathology Laboratory at [facility], directed by Dr. Nirav Anguiano. These tests need not be, and therefore are not, approved by the [place] Food and Drug Administration. The tests are used for clinical purposes. Billing Codes Specimen Charges Stain Charges 34029 1 42326 1 0 4:31 PM [facility] DERMATOPATHOLOGY LABORATORY Embedded Images 0 4:31 PM [facility] DERMATOPATHOLOGY LABORATORY Pathology/Cytolog y TISSUE SPECIMEN FROM SKIN / Unknown 08/03/2019 08/04/2019 6:58 AM [facility] Zion Garces MD LAB - PATHOLOGY/CYTOLOGY ORDERAB LES Final Result DERMATOPATHOLOGY LABORATORY [facility] - Department of Dermatology [facility] [place] [address], [facility] [phone] documented in this encounter Visit Diagnoses Not on filedocumented in this encounter
--- OUTSIDE RECORDS SUMMARY | 2025-03-02 16:22 | XMS_ITS | Encounter Summary ---
Author Organization [facility] Address [address] [place] [address] Care Team Providers Care Managing Member Name Role Phone Ted Benavides Primary Care Provider Encounter Details Date Type Department Care Team (Late st Contact Info) Description 09/28/2024 Orders Only [facility] [address] [place] [address] Scanning, Provider Social History Tobacco Use Types Packs/Day Years Used Date Smoking Tobacco: Former Cigarettes Q uit: 11/11/2019 Smokeless Tobacco: Never Alcohol Use Standard Drinks/Week Comments Not Currently [...] on file 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 Gender Identity Not on file Sexual Orientation Not on file documented as of this encounter Plan of Treatment Not on file documented as of this encounter Procedures Procedure Name Priority Date/Time Associated Diagnosis Comments PULMONARY - RESULT SCAN 09/28/2024 documented in this encounter Results * PULMONARY - RESULT SCAN (09/28/2024) Anatomical Region Laterality Modality Other us Provider Scanning Final Result documented in this encounter Visit Diagnoses Not on filedocumented in this encounter Care Teams Managing Member Relationship Specialty Start Date End Date Ted Benavides PA [address] [facility] [address] [place] [address] PCP - General Physician Elevator Dispatcher 02/15/20 documented as of this encounter
[2025-03-02 16:32] LABS: Hematocrit 43.8 % (37.0-47.0); Hemoglobin 13.6 g/dL (12.0-15.0); Immature Granulocyte Percent A 0.6 % (0-0.5); Lymphocytes Absolute Auto 1.24 K/mm3 (0.9-3.2); Mean Corpuscular HGB Conc 31.1 g/dl (32-36); Mean Corpuscular Hemoglobin 29.8 pg (26-34); Mean Corpuscular Volume 96.1 fl (80-100); Nucleated Red Blood Cells Absolute Auto 0.000 K/mm3 (0.0-0.012); Nucleated Red Blood Cells Perc 0.0 % (0.0-0.2); Platelet Count Result 297 k/mm3 (150-375); Red Blood Count 4.56 M/mm3 (4.2-5.4); White Blood Count 10.0 K/mm3 (4.5-10.0)
[2025-03-02 16:36] LABS: Alanine Aminotransferase 17 U/L (6-35); Albumin Level 4.7 g/dL (3.5-5.1); Alkaline Phosphatase 82 U/L (38-126); Anion Gap 8 mmol/L (4-12); Aspartate Amino Transferase 33 U/L (14-36); Bilirubin,Total 0.7 mg/dL (0.2-1.3); Blood Urea Nitrogen 12 mg/dL (7-17); Calcium 9.7 mg/dL (8.4-10.2); Carbon Dioxide 24 mmol/L (22-30); Chloride 105 mmol/L (98-107); Estimated CRCL calculation 36 ml/min; Estimated Glomerular Filt Rate 59; Glucose 83 mg/dL (65-110); INR 0.9; Magnesium 2.3 mg/dL (1.6-2.3); Potassium 4.7 mmol/L (3.4-5.0); Prothrombin Time 12.7 Seconds (11.1-14.7); Sodium 137 mmol/L (137-145); Total Protein 8.6 g/dL (6.3-8.2)
[2025-03-02 16:37] LABS: Partial Thromboplastin Time 24.3 Seconds (22.3-36.8)
[2025-03-02 16:45] LABS: NT Pro B Type Natriuretic Pept 495 pg/mL (19.9-100); Troponin I 0.015 ng/mL (0.000-0.034)
[2025-03-02 16:56] LABS: Influenza A QL RT-PCR Negative (Negative); Influenza B QL RT-PCR Negative (Negative); RSV RNA, RT-PCR Negative (Negative); SARS-CoV-2 RNA PCR Negative (Negative)
--- NOTE | 2025-03-02 17:02 | ED.GENADULT ---
"HPI - General Adult General Chief complaint: Shortness of Breath/Dyspnea Stated complaint: SOB, headache Time Seen by Provider: 03/02/25 15:54 History of Present Illness HPI narrative: 71-year-old female presents emergency department for evaluation for a headache that occurred earlier the day. Patient states that approximately noon she had onset of a headache and did have associated sweating and chills with this. Patient states she laid down for nap and headache did resolve. Patient does have COPD and is on 3 L of oxygen at all times. Patient denies any worsening of her shortness of breath. Patient denies any chest pain. Patient states her headache is resolved and she only has a complaint of feeling tired at this time. 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 Pulmonary emboli (05/2022) Chronic anticoagulation Chronic obstructive pulmonary disease Chronic respiratory failure with hypoxia, on home oxygen therapy Supraventricular tachycardia Abnormal nuclear stress test (03/2022) Cardiac catheterization on 04/02/2022 showed preserved left ventricular systolic function with minimal atherosclerosis of the proximal LAD and the proximal and mid RCA. Lumbar compression fracture Coronary artery calcification Calcifications noted on chest CT in October 2019. Echocardiogram showed normal left ventricular systolic function with an ejection fraction of 65 to 70% as well as grade 1 diastolic dysfunction. Gastroesophageal reflux disease COPD with emphysema [place] (obstructive sleep apnea) History of tobacco abuse 45 pack year smoking history, quit in October 2019. Surgical History Surgical History History of cardiac catheterization (03/2022) History of bladder suspension procedure History of breast augmentation History of partial hysterectomy Family History Family History Mother Family history of heart disease in male family member before age 55 Cerebrovascular accident Heart attack Sibling Family history of heart disease in male family member before age 55 Heart attack Cerebrovascular accident Transitional cell carcinoma Father Cerebrovascular accident Social History Social History Social History: Current lives at home with her 3 sons and 1 grandson. Surrogate decision maker Shahrzad Camacho, daughter Code Status: Full Code. Smoking packs per day: 1 Smoking cigarettes per day: 20.0 Years smoked: 60 Smoking pack-years: 60.00 Smoking status: Former smoker Tobacco type: cigarettes Second hand tobacco smoke exposure: No Smoking end date: 06/24/19 Additional smoking assessment comments: Smoked .75 packs per day but up to 1.5 - 2 packs per day for over a year. Alcohol intake: never Substance use: never Substance use type: does not use Lack of Transportation: No Lack of Food: Never True Current Housing: I Have Housing Concerned About Future Housing: No Difficulty Paying Gas/Electric Bills: No Difficulty Paying for Meds: No Currently Unemployed: No Education: High School Diploma/GED Difficulty w/ Childcare or Family Care: No Living arrangements: with family Additional living arrangements comments: LIVES WITH 4 SONS Occupation/Education: retired Additional occupation/education comments: Worked 40 years [employer], , raised 8 children on her own. Spiritual care concerns: No Course Vital Signs Vital signs: Vital Signs Temperature 98.7 F 03/02/25 15:18 Pulse Rate 86 03/02/25 15:18 Respiratory Rate 18 03/02/25 15:18 Blood Pressure 111/69 03/02/25 15:18 Pulse Oximetry 100 03/02/25 15:18 Oxygen Delivery Room Air 03/02/25 15:18 Temperature 97.9 F 03/02/25 18:31 Pulse Rate 87 03/02/25 18:31 Respiratory Rate 16 03/02/25 18:31 Blood Pressure 119/89 03/02/25 18:31 Pulse Oximetry 100 03/02/25 18:31 Oxygen Delivery Nasal Cannula 03/02/25 15:55 Oxygen Flow Rate 3.5 03/02/25 15:55 Medical Decision Making MDM Narrative Medical decision making narrative: 79-year-old female presents emergency department for evaluation headache. Headache was resolved when she arrived to the emergency department. Patient is afebrile with no leukocytosis hemoglobin of 13.6. INR 0.9. No acute abnormalities on her CMP patient was negative for influenza RSV and for COVID. Head CT was negative for acute abnormality and chest x-ray shows emphysema no evidence of acute pneumonia. On re-evaluation patient does feel improved. Patient family updated the results of the workup patient is being discharged home. Vital Signs Vital Signs: Vital Signs Temperature 98.7 F 03/02/25 15:18 Pulse Rate 86 03/02/25 15:18 Respiratory Rate 18 03/02/25 15:18 Blood Pressure 111/69 03/02/25 15:18 Pulse Oximetry 100 03/02/25 15:18 Oxygen Delivery Room Air 03/02/25 15:18 Temperature 97.9 F 03/02/25 18:31 Pulse Rate 87 03/02/25 18:31 Respiratory Rate 16 03/02/25 18:31 Blood Pressure 119/89 03/02/25 18:31 Pulse Oximetry 100 03/02/25 18:31 Oxygen Delivery Nasal Cannula 03/02/25 15:55 Oxygen Flow Rate 3.5 03/02/25 15:55 Lab Data 03/02/25 16:14 03/02/25 16:14 Labs: Lab Results 03/02/25 Range/Units 16:14 WBC 10.0 (4.5-10.0) K/mm3 RBC 4.56 (4.2-5.4) M/mm3 Hgb 13.6 (12.0-15.0) g/dL Hct 43.8 (37.0-47.0) % MCV 96.1 (80-100) fl MCH 29.8 (26-34) pg MCHC 31.1 L (32-36) g/dl RDW 14.6 H (11.5-14.5) % Plt Count 297 (150-375) k/mm3 MPV 10.4 (7.4-10.4) fl Immature Gran % (Auto) 0.6 H (0-0.5) % Neut % (Auto) 79.7 H (45.5-73.1) % Lymph % (Auto) 12.4 L (18.3-44.2) % Hinds % (Auto) 6.1 (2.6-8.5) % Eos % (Auto) 0.4 (0-4.4) % Baso % (Auto) 0.8 (0.2-1.2) % Lymph # (Auto) 1.24 (0.9-3.2) K/mm3 Hinds # (Auto) 0.6 (0.1-0.6) K/mm3 Eos # (Auto) 0.0 (0-0.3) K/mm3 Baso # (Auto) 0.1 (0.0-0.1) K/mm3 Abs Immat Gran (auto) 0.06 H (0.00-0.031) K/mm3 Absolute Neuts (auto) 8.0 H (1.3-6.7) K/mm3 Absolute Nucleated RBC 0.000 (0.0-0.012) K/mm3 Nucleated RBC % 0.0 (0.0-0.2) % PT 12.7 (11.1-14.7) Seconds INR 0.9 APTT 24.3 (22.3-36.8) Seconds Sodium 137 (137-145) mmol/L Potassium 4.7 (3.4-5.0) mmol/L Chloride 105 (98-107) mmol/L Carbon Dioxide 24 (22-30) mmol/L Anion Gap 8 (4-12) mmol/L BUN 12 (7-17) mg/dL Creatinine 0.92 (0.7-1.0) mg/dL Estim Creat Clear Calc 36 ml/min Estimated GFR 59 (59 - ) Glucose 83 (65-110) mg/dL Calcium 9.7 (8.4-10.2) mg/dL Magnesium 2.3 (1.6-2.3) mg/dL Total Bilirubin 0.7 (0.2-1.3) mg/dL AST 33 (14-36) U/L ALT 17 (6-35) U/L Alkaline Phosphatase 82 (38-126) U/L Troponin I 0.015 (0.000-0.034) ng/mL NT-Pro-B Natriuret Pep 495 H (19.9-100) pg/mL Total Protein 8.6 H (6.3-8.2) g/dL Albumin 4.7 (3.5-5.1) g/dL Influenza A (RT-PCR) Negative (Negative) Influenza B (RT-PCR) Negative (Negative) RSV (RT-PCR) Negative (Negative) SARS-CoV-2 RNA (RT-PCR) Negative (Negative) Discharge Plan Discharge Clinical Impression: Headache Patient Disposition: Home Condition: Stable Instructions: Antibiotic Form Additional Instructions: Tylenol for pain control. Have close follow-up with your primary care physician. Patient Language: German Prescriptions: No Action albuterol sulfate 2.5 mg /3 mL (0.083 %) solution for nebulization 2.5 mg inhalation QID PRN (Reason: shortness of breath or wheezing) Qty: 180 2RF Rx Instructions: Nebulize 3mL up to once daily as needed for shortness of breath or wheezing. diltiazem HCl [Cardizem CD] 180 mg capsule,extended release 24hr 180 mg PO DAILY pantoprazole 40 mg tablet,delayed release (DR/EC) See Rx Instructions .ROUTE .COMPLEX Qty: 90 0RF Dose Instruction: TAKE 1 TABLET BY MOUTH EVERY MORNING Rx Instructions: TAKE 1 TABLET BY MOUTH EVERY MORNING albuterol sulfate 90 mcg/actuation HFA aerosol inhaler See Rx Instructions .ROUTE .COMPLEX Qty: 8.5 4RF Dose Instruction: INHALE 2 PUFFS BY MOUTH FOUR TIMES DAILY NEEDED FOR SHORTNESS OF BREATH OR WHEEZING Rx Instructions: INHALE 2 PUFFS BY MOUTH FOUR TIMES DAILY NEEDED FOR SHORTNESS OF BREATH OR WHEEZING Trelegy Ellipta 100-62.5-25 mcg blister with device See Rx Instructions .ROUTE .COMPLEX Qty: 60 5RF Dose Instruction: INHALE 1 PUFF BY MOUTH DAILY Rx Instructions: INHALE 1 PUFF BY MOUTH DAILY. RINSE AND SPIT AFTER. Follow-up/Referrals: PHYSICIAN,BUSINESS INFORMATION MANAGER [Primary Care Provider, Internal Medicine]"
--- OUTSIDE RECORDS SUMMARY | 2025-03-02 17:20 | XMS_ITS | Encounter Summary ---
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
--- OUTSIDE RECORDS SUMMARY | 2025-03-02 17:20 | XMS_ITS | Encounter Summary ---
Author Organization [facility] Address [address] [facility] [place] [address] Care Team Providers Care Display Maker Name Role Phone Unavailable Primary Care Provider Unavailabl e Encounter Details Date Type Department Care Team (Late st Contact Info) Description 08/04/2019 Lab Requisition [facility] [address] [place] [id number] Zion Garces MD [address] [place], [place] [id number] Social History Tobacco Use Types Packs/Day Years Used Date Smoking Tobacco: Every Day Comments:CURRENTLY SMOLKING 0.5 PACKS PER DAY/SMOKING FOR 50 YEARS Alcohol Use Standard Drinks/Week Comments No 0 (1 standard drink = 0.6 oz pur e alcohol) Comments Unknown Sex and Gender Information Value Date Recorded Sex Assigned at Not on file Legal Sex Female 1:50 PM ANGLE FURNACEMAN Gender Identity Not on file Sexual Orientation Not on file documented as of this encounter Plan of Treatment Not on file documented as of this encounter Procedures Procedure Name Priority Date/Time Associated Diagnosis Comments DERMATOPATHOLOGY Routine 08/03/2019 12:0 0 AM ANGLE FURNACEMAN documented in this encounter Results * DERMATOPATHOLOGY (08/03/2019 12:00 AM ANGLE FURNACEMAN) Case Report Dermatopathology Report Case: [id number] Authorizing Provider: Zion Garces MD Collected: 08/03/2019 12:00 AM Ordering Location: [facility] Received: 08/04/2019 06:58 AM Pathologist: Sinai Woodward MD Specimen: Skin, left slava bowl 0 4:31 PM [facility] Final Diagnosis Specimen A. SKIN, left slava bowl: FRAGMENTS OF ACTINIC KERATOSIS; EXTENDING TO THE BASE OF THE SPECIMEN (L57.0) (see microscopic description and comment) 0 4:31 PM [facility] at [address] [facility] Clinical History R/O neoplasm. 0 4:31 PM [facility] Gross Description Specimen A: Received is one formalin filled container labeled with the patient's name and designated left slava bowl. The specimen consists of a shave biopsy measuring [id number] & [id number], submitted with multiple fragments. Jar 0. 0 4:31 PM [facility] Microscopic Description Specimen A. SKIN, [...] cannot be ruled out. 0 4:31 PM [facility] Disclaimer An external and internal positive and negative controls are appropriate for the histochemical, immunohistochemical and immunofluorescence stain(s) in this case (if any), except where stated explicitly. The performance characteristics of the stain(s) cited in this report were developed and its performance characteristic determined by the Dermatopathology Laboratory at [facility], directed by Dr. Nirav Anguiano. These tests need not be, and therefore are not, approved by the [place] Food and Drug Administration. The tests are used for clinical purposes. Billing Codes Specimen Charges Stain Charges 76797 1 [id number] 1 0 4:31 PM [facility] Embedded Images 0 4:31 PM [facility] Pathology/Cytolog y TISSUE SPECIMEN FROM SKIN / Unknown 08/03/2019 08/04/2019 6:58 AM [facility] Zion Garces MD LAB - PATHOLOGY/CYTOLOGY ORDERAB LES Final Result DERMATOPATHOLOGY LABORATORY [facility] - Department of Dermatology [facility] [facility] [place] [address], [facility] [phone] documented in this encounter Visit Diagnoses Not on filedocumented in this encounter
--- OUTSIDE RECORDS SUMMARY | 2025-03-02 17:20 | XMS_ITS | Clinical Summary ---
Author Organization [facility] Address [address] [place] [address] Care Team Providers Care Radio Control Crane Operator Name Role Phone Ted Benavides Primary Care [...] on file Legal Sex Female 6:02 AM GAS FITTER Gender Identity Not on file Sexual Orientation Not on file Obstetrics History Last Filed Vital Signs Vital Sign Reading Time Taken Comments Blood Pressure 112/78 05/23/2023 2:09 PM GAS FITTER Pulse 107 05/23/2023 2:09 PM GAS FITTER Temperature - - Respiratory Rate 14 05/23/2023 2:09 PM GAS FITTER Oxygen Saturation 96% 05/23/2023 2:09 PM GAS FITTER Inhaled Oxygen Concentration - - Weight 56.2 kg (124 lb) 05/23/2023 2:09 PM GAS FITTER Height 154.9 cm (5' 1) 05/23/2023 2:09 PM GAS FITTER Body Mass Index 23.43 05/23/2023 2:09 PM GAS FITTER Plan of Treatment Health Maintenance Due Date [...] 04/17/2017, 06/20/2016 Insurance [employer] MEDICARE Care Teams Radio Control Crane Operator Relationship Specialty Start Date End Date Ted Benavides PA [address] [facility] [address] [place] [address] PCP - General Physician Cotton Ball Machine Tender 02/15/20
--- OUTSIDE RECORDS SUMMARY | 2025-03-02 17:20 | XMS_ITS | Clinical Summary ---
Author Organization [facility] Address [address] [place] [address] Care Team Providers Care White Goods Appliance Tech Name Role Phone Unavailable Primary Care Provider Unavailabl e Source Comments [facility],non-owned Affiliates and Associated Physician Practices is amultiple site organization consisting of ambulatory clinics and hospital sitesin [place], [place], [place] and [place]. This disclosure is being madepursuant to the Care Everywhere program and may not contain all information available regarding this patient. Last updated 18.[facility] Allergies No known active allergies Medications * Be aware that medications may not be up to date on this document. Alwaysverify current medications with the patient. vitamin B-12 (CYANOCOBALAMIN) 1000 MCG tablet Take 1,000 mcg by mouth once daily. Active clopidogrel (PLAVIX) 75 MG tablet Take 75 mg by mouth once daily. 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
[2025-03-02] MEDS: ACETAMINOPHEN 500 MG TABLET 1000 MG PO (18:54)
== END 2025-03-02 19:07 | disposition home or self-care (01) ==
PROVIDERS: Emergency Provider Emergency Medicine
DX: R51.9 Headache, unspecified (principal); Z20.822 Contact with and (suspected) exposure to COVID-19; J43.9 Emphysema, unspecified; J96.11 Chronic respiratory failure with hypoxia; Z99.81 Dependence on supplemental oxygen; I25.10 Atherosclerotic heart disease of native coronary artery without angina pectoris; G47.33 Obstructive sleep apnea (adult) (pediatric); K21.9 Gastro-esophageal reflux disease without esophagitis; Z86.711 Personal history of pulmonary embolism; Z85.828 Personal history of other malignant neoplasm of skin; Z92.3 Personal history of irradiation; Z87.891 Personal history of nicotine dependence; Z90.711 Acquired absence of uterus with remaining cervical stump; Z79.899 Other long term (current) drug therapy; R94.31 Abnormal electrocardiogram [ECG] [EKG]
CPT/HCPCS: 36415; 70450; 71045; 80053; 83735; 83880; 84484; 85025; 85610; 85730; 87637; 93005; 94640; 99284; A9270

== ENCOUNTER 2025-03-20 19:27 | Emergency (ER) | payer MEDICARE, SELFPAY ==
--- NOTE | ~2025-03-20 | XR_ITS ---
EXAMINATION: XR ribs LT 2V w CXR 2V, 03/20/2025 19:42 CDT HISTORY: fall, pain COMPARISON: No comparisons available. Findings: No acute rib fracture identified. Soft tissues unremarkable. COPD changes. Multiple remote compression deformities of the visualized thoracic spine with sequelae of previous kyphoplasty. Impression: No acute fracture or malalignment. Reviewed, dictated and finalized at location P. Impression: No acute fracture or malalignment.
[2025-03-20 19:29] VITALS: BP 149/86; PULSE 91; RESP 20; TEMP 36.7; O2SAT 100
--- NOTE | 2025-03-20 20:08 | PC.NURSE ---
Pt presents to ED c/o 01/31 R hip pain, and L flank pain, onset this AM. Per pt was on the commode felt like she was going to pass out and lowered her self to the floor. Pt denies LOC, denies head strike.
[2025-03-20 20:10] VITALS: BP 129/79; PULSE 99; RESP 17; O2SAT 99
--- NOTE | 2025-03-20 20:49 | ED.FALL ---
HPI - Fall General Chief Complaint: Fall Stated Complaint: fall from toilet earlier today, L rib pain Time Seen by Provider: 03/20/25 20:01 History of Present Illness HPI Narrative: Patient is a 80-year-old female who presents the emergency department this evening complaining of left-sided rib pain. Patient states that earlier today at 1:00 a.m. she slid from the toilet and fell to the floor. Patient denies hitting her head, denies any loss of consciousness. States that since then she has been having some left lower rib pain. Denies any shortness of breath or difficulty breathing. Denies any blood thinner use. Patient is currently at her baseline. Ambulatory to ED without any difficulty. Related Data Home Medications ?Medication ?Instructions ?Recorded ?Confirmed ?Last Taken ?Type diltiazem HCl 180 mg 180 mg PO DAILY 06/20/21 09/11/24 05/28/22 History capsule,extended release 24 hr (Cardizem CD) Allergies Allergy/AdvReac Type Severity Reaction Status Date / Time No Known Allergies Allergy Verified 03/20/25 19:34 Review of Systems Review of Systems: All systems are reviewed and are negative unless stated otherwise in the HPI. 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 Pulmonary emboli (05/2022) Chronic anticoagulation Chronic obstructive pulmonary disease Chronic respiratory failure with hypoxia, on home oxygen therapy Supraventricular tachycardia Abnormal nuclear stress test (03/2022) Cardiac catheterization on 04/02/2022 showed preserved left ventricular systolic function with minimal atherosclerosis of the proximal LAD and the proximal and mid RCA. Lumbar compression fracture Coronary artery calcification Calcifications noted on chest CT in October 2019. Echocardiogram showed normal left ventricular systolic function with an ejection fraction of 65 to 70% as well as grade 1 diastolic dysfunction. Gastroesophageal reflux disease COPD with emphysema SAGRARIO (obstructive sleep apnea) History of tobacco abuse 45 pack year smoking history, quit in October 2019. Surgical History Surgical History History of cardiac catheterization (03/2022) History of bladder suspension procedure History of breast augmentation History of partial hysterectomy Family History Family History Mother Family history of heart disease in male family member before age 55 Cerebrovascular accident Heart attack Sibling Family history of heart disease in male family member before age 55 Heart attack Cerebrovascular accident Transitional cell carcinoma Father Cerebrovascular accident Social History Social History Social History: Current lives at home with her 3 sons and 1 grandson. Surrogate decision maker Shahrzad Camacho, daughter Code Status: Full Code. Smoking packs per day: 1 Smoking cigarettes per day: 20.0 Years smoked: 60 Smoking pack-years: 60.00 Smoking status: Former smoker Tobacco type: cigarettes Second hand tobacco smoke exposure: No Smoking end date: 06/24/19 Additional smoking assessment comments: Smoked .75 packs per day but up to 1.5 - 2 packs per day for over a year. Alcohol intake: never Substance use: never Substance use type: does not use Lack of Transportation: No Lack of Food: Never True Current Housing: I Have Housing Concerned About Future Housing: No Difficulty Paying Gas/Electric Bills: No Difficulty Paying for Meds: No Currently Unemployed: No Education: High School Diploma/GED Difficulty w/ Childcare or Family Care: No Living arrangements: with family Additional living arrangements comments: LIVES WITH 4 SONS Occupation/Education: retired Additional occupation/education comments: Worked 40 years [employer], , raised 8 children on her own. Spiritual care concerns: No Exam Narrative: General: Alert, awake, afebrile, in no acute distress. HEENT: PERRL, no rhinorrhea, no post nasal drip, oropharynx clear. Neck: Trachea midline, no JVD, no lymphadenopathy. Cardiovascular: Regular rate and rhythm, no murmurs, rubs or gallops, no peripheral edema. Respiratory: Clear to auscultation bilaterally, no tachypnea, no wheezing, no rhonchi, no rubs, no respiratory distress. Abdomen: Soft, nontender, nondistended, no rebound, no guarding, no peritoneal signs. Musculoskeletal: No joint swelling or deformity, normal muscle tone, tenderness palpation over the left anterior lower rib cage, no ecchymosis or bruising noted. Skin: No rashes or petechia, no signs of infection. Psychiatric: Alert and oriented, normal behavior and judgment for situation. Neurological: Alert and oriented to person, place, and time. Follows all commands. No focal deficits, speech is clear and fluent. Course Vital Signs Vital signs: Vital Signs Temperature 98.1 F 03/20/25 19:29 Pulse Rate 91 03/20/25 19:29 Respiratory Rate 20 03/20/25 19:29 Blood Pressure 149/86 H 03/20/25 19:29 Pulse Oximetry 100 03/20/25 19:29 Oxygen Delivery Room Air 03/20/25 19:29 Temperature 98.1 F 03/20/25 19:29 Pulse Rate 99 03/20/25 20:10 Respiratory Rate 17 03/20/25 20:10 Blood Pressure 129/79 03/20/25 20:10 Pulse Oximetry 99 03/20/25 20:10 Oxygen Delivery Room Air 03/20/25 19:29 MDM - Fall MDM Narrative Medical decision making narrative: The patient was evaluated by myself in the emergency department. History is obtained from patient who is an independent historian and physical exam was performed. External medical records were reviewed at this time. Imaging studies obtained included CXR/ left-sided rib x-rays which was independently interpreted by me revealing no acute left-sided rib fractures, incidental multilevel compression fractures and thoracolumbar spine, which is pending final radiology interpretation. spinal fractures are likely as patient is not complaining of any back pain at this time. Patient was administered a Lidoderm patch and an oral Bruce 5-325 mg. Differential diagnosis considerations include rib fractures, pneumothorax, rib contusion, musculoskeletal injury. Comorbidities impacting this visit include none. I have evaluated and discussed social determinants of health with the patient that could potentially impact subsequent diagnosis and treatment plans. On repeat assessment of the patient, reevaluation revealed that the patient is doing well and is in no acute distress. Patient symptoms have improved since she arrived to our emergency department. Repeat vital signs were all reviewed and noted to be stable. Differential diagnosis and treatment plan were discussed with the patient at bedside. Patient agrees with discussion and after shared medical decision making agrees with discharge. All questions were answered to the patient's satisfaction. Patient will follow up with her PCP in 3-5 days. Patient was provided with strict return precautions and instructed to return to the emergency department if any new or worsening symptoms develop. The patient was discharged in stable condition. Discharge Plan Discharge Clinical Impression: Fall, Contusion of rib on left side Patient Disposition: Home Condition: Improved Instructions: Antibiotic Form, Rib Contusion (ED) Additional Instructions: Please follow-up with your family doctor within the next 3-5 days. Return to the emergency department for new or worsening symptoms develop. Use ibuprofen and Tylenol as needed for pain. Patient Language: Turkish Prescriptions: No Action diltiazem HCl [Cardizem CD] 180 mg capsule,extended release 24hr 180 mg PO DAILY pantoprazole 40 mg tablet,delayed release (DR/EC) See Rx Instructions .ROUTE .COMPLEX Qty: 90 0RF Dose Instruction: TAKE 1 TABLET BY MOUTH EVERY MORNING Rx Instructions: TAKE 1 TABLET BY MOUTH EVERY MORNING albuterol sulfate 90 mcg/actuation HFA aerosol inhaler See Rx Instructions .ROUTE .COMPLEX Qty: 8.5 4RF Dose Instruction: INHALE 2 PUFFS BY MOUTH FOUR TIMES DAILY NEEDED FOR SHORTNESS OF BREATH OR WHEEZING Rx Instructions: INHALE 2 PUFFS BY MOUTH FOUR TIMES DAILY NEEDED FOR SHORTNESS OF BREATH OR WHEEZING Trelegy Ellipta 100-62.5-25 mcg blister with device See Rx Instructions .ROUTE .COMPLEX Qty: 60 5RF Dose Instruction: INHALE 1 PUFF BY MOUTH DAILY Rx Instructions: INHALE 1 PUFF BY MOUTH DAILY. RINSE AND SPIT AFTER. albuterol sulfate 2.5 mg /3 mL (0.083 %) solution for nebulization 2.5 mg inhalation QID PRN (Reason: shortness of breath or wheezing) Qty: 180 2RF Rx Instructions: Nebulize 3mL up to once daily as needed for shortness of breath or wheezing. Follow-up/Referrals: PHYSICIAN,HOUSEHOLD WORKER [Primary Care Provider, Internal Medicine] Chente Esteves MD [Physician, Family Practice] - 3 Days Time of Disposition: 20:50
[2025-03-20] MEDS: HYDROcodone/acetaminophen (*CRX) 5-325 MG TABLET 1 TAB PO (20:56)
[2025-03-20] MEDS: LIDOCAINE 5% PATCH 1 PATCH TRANSDERM (21:28)
[2025-03-20 21:41] VITALS: BP 138/84; PULSE 76; RESP 18; O2SAT 98
== END 2025-03-20 21:43 | disposition home or self-care (01) ==
PROVIDERS: Emergency Provider Emergency Medicine
DX: S20.212A Contusion of left front wall of thorax, initial encounter (principal); I25.10 Atherosclerotic heart disease of native coronary artery without angina pectoris; M81.0 Age-related osteoporosis without current pathological fracture; Z85.828 Personal history of other malignant neoplasm of skin; Z86.711 Personal history of pulmonary embolism; Z79.01 Long term (current) use of anticoagulants; J44.9 Chronic obstructive pulmonary disease, unspecified; G47.30 Sleep apnea, unspecified; W18.11XA Fall from or off toilet without subsequent striking against object, initial encounter
CPT/HCPCS: 71046; 71100; 99283; A9270

== ENCOUNTER 2025-05-31 18:23 | Emergency (ER) | payer MEDICARE, SELFPAY ==
[2025-05-31] VITALS (8 sets, daily range): BP systolic 117–164; BP diastolic 72–102; PULSE 72–87; RESP 13–24; TEMP 36.6–37.2; O2SAT 96–100
--- NOTE | ~2025-05-31 | CT_ITS ---
EXAMINATION:CT diagnostic chest wo con DATE: 05/31/2025 22:14 INDICATION: Shortness of breath TECHNIQUE: Computed tomography (CT) of the chest was performed without intravenous contrast. The dose-length product (DLP) was 126.87 mGy-cm. COMPARISON: May 29, 2022 FINDINGS: Severe emphysematous changes throughout the lungs with no consolidation effusion or pneumothorax. No suspicious nodules or masses seen. 3.9 cm ectasia of the ascending thoracic aorta increased in size compared to the previous study when it measured approximately 3.6 cm. Heart size normal. No significant pericardial effusion or bulky lymphadenopathy. Airways appear patent. Multilevel compression fractures and interval kyphoplasty in several of the thoracic vertebral bodies including approximately 70% anterior compression fracture of T6, new since the previous study. No severe retropulsion or severe spinal canal stenosis seen. Partially visualized bilateral breast implants. No acute process seen in the upper abdomen. IMPRESSION: 1. Severe emphysematous changes with no acute intrathoracic process identified in the lung schreiber. 2. Multiple compression fractures with interval 70% anterior compression fracture T6 since the previous exam. Fracture could be acute. 3. Interval increased size of ascending thoracic aorta measuring 3.9 cm on today's exam compared to 3.6 cm on the previous study. NOTE: Preliminary radiology report provided by [facility] radiologist physician. IMPRESSION: 1. Reviewed, dictated and finalized at location A. GE CLIPPER IMPRESSION: 1. Severe emphysematous changes with no acute intrathoracic process identified in the lung schreiber. 2. Multiple compression fractures with interval 70% anterior compression fractu re T6 since the previous exam. Fracture could be acute. 3. Interval increased size of ascending thoracic aorta measuring 3.9 cm on y's exam compared to 3.6 cm on the previous study. NOTE: Preliminary radiology report provided by [facility] radiologist physician. IMPRESSION: 1.
--- NOTE | ~2025-05-31 | XR_ITS ---
Examination: XR chest 2V Clinical History: shortness of breath COPD Comparison: 05/19/2024 Technique: PA and Lateral Findings: Cardiomediastinal silhouette normal size and configuration. No focal airspace consolidation or pleural effusion. Chronic interstitial changes and scarring. Hyperinflation. No acute bony abnormality. Breast implant capsular calcifications. IMPRESSION: 1. No acute cardiopulmonary findings. Reviewed, dictated and finalized at location R. [employer] ENGINEERING CONSULTANT
--- NOTE | 2025-05-31 18:28 | ECG_ITS ---
Test Date: 2025-05-31 18:35:27 Measurements Intervals [place] Rate: 81 P: 36 SD: 168 QRS: -11 QRSD: 98 T: 29 QT: 359 QTc: 419 Interpretive Statements SINUS RHYTHM DELAYED PRECORDIAL R/S TRANSITION CONSIDER INFERIOR INFARCT, AGE INDETERMINATE BASELINE ARTIFACT- I, II, III, AVR, AVL, AVF ABNORMAL ECG Compared to ECG 03/02/2025 16:01:41 NO SIGNIFICANT CHANGE Electronically Signed On 05-31-2025 19:59:40 [facility] [place] by Wilton Torrez D.O.
[2025-05-31] MEDS: ALBUTEROL SULFATE NEB 2.5 MG/3 ML INH INHALATION (21:27)
[2025-05-31 22:01] LABS: Hematocrit 45.0 % (37.0-47.0); Hemoglobin 14.1 g/dL (12.0-15.0); Immature Granulocyte Percent A 0.4 % (0-0.5); Lymphocytes Absolute Auto 2.29 K/mm3 (0.9-3.2); Mean Corpuscular HGB Conc 31.3 g/dl (32-36); Mean Corpuscular Hemoglobin 30.2 pg (26-34); Mean Corpuscular Volume 96.4 fl (80-100); Nucleated Red Blood Cells Absolute Auto 0.000 K/mm3 (0.0-0.012); Nucleated Red Blood Cells Perc 0.0 % (0.0-0.2); Platelet Count Result 324 k/mm3 (150-375); Red Blood Count 4.67 M/mm3 (4.2-5.4); White Blood Count 8.0 K/mm3 (4.5-10.0)
--- NOTE | 2025-05-31 22:03 | ED_ITS ---
HPI - General Adult General Chief complaint: Shortness of Breath/Dyspnea Stated complaint: SHORT OF BREATH [id number] Time Seen by Provider: 05/31/25 21:49 History of Present Illness HPI narrative: 80-year-old female with history of COPD and is no longer smoking presents to the emergency department for evaluation for worsening shortness of breath and increased cough and sputum production. Patient states symptoms have been ongoing for the last few days. Patient is normally on previous of oxygen at all time and is saturating 100% on 3 the years upon arrival emergency department. Patient denies any falls or injuries. Patient denies any worsening generalized weakness. Patient states she does have shortness of breath at baseline and does have exertional shortness of breath at baseline. Patient states he does live at home on her own but family does help to check on her. Patient denies any recent falls or injuries. Prior to evaluation patient did have a breathing treatment states she does feel improved. Patient was also complaining of some intermittent right-sided chest pain is worsened with cough. At time of evaluation patient denies any current chest pain. Patient has now tenderness to palpation. 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 Pulmonary emboli (05/2022) Chronic anticoagulation Chronic obstructive pulmonary disease Chronic respiratory failure with hypoxia, on home oxygen therapy Supraventricular tachycardia Abnormal nuclear stress test (03/2022) Cardiac catheterization on 04/02/2022 showed preserved left ventricular systolic function with minimal atherosclerosis of the proximal LAD and the proximal and mid RCA. Lumbar compression fracture Coronary artery calcification Calcifications noted on chest CT in October 2019. Echocardiogram showed normal left ventricular systolic function with an ejection fraction of 65 to 70% as well as grade 1 diastolic dysfunction. Gastroesophageal reflux disease COPD with emphysema S[place]RARIO (obstructive sleep apnea) History of tobacco abuse 45 pack year smoking history, quit in October 2019. Surgical History Surgical History History of cardiac catheterization (03/2022) History of bladder suspension procedure History of breast augmentation History of partial hysterectomy Family History Family History Mother Family history of heart disease in male family member before age 55 Cerebrovascular accident Heart attack Sibling Family history of heart disease in male family member before age 55 Heart attack Cerebrovascular accident Transitional cell carcinoma Father Cerebrovascular accident Social History Social History Social History: Current lives at home with her 3 sons and 1 grandson. Surrogate decision maker Shahrzad Camacho, daughter Code Status: Full Code. Smoking packs per day: 1 Smoking cigarettes per day: 20.0 Years smoked: 60 Smoking pack-years: 60.00 Smoking status: Former smoker Tobacco type: cigarettes Second hand tobacco smoke exposure: No Smoking end date: 06/24/19 Additional smoking assessment comments: Smoked .75 packs per day but up to 1.5 - 2 packs per day for over a year. Alcohol intake: never Substance use: never Substance use type: does not use Lack of Transportation: No Lack of Food: Never True Current Housing: I Have Housing Concerned About Future Housing: No Difficulty Paying Gas/Electric Bills: No Difficulty Paying for Meds: No Currently Unemployed: No Education: High School Diploma/GED Difficulty w/ Childcare or Family Care: No Living arrangements: with family Additional living arrangements comments: LIVES WITH 4 SONS Occupation/Education: retired Additional occupation/education comments: Worked 40 years [employer], , raised 8 children on her own. Spiritual care concerns: No Exam 2 Narrative: APPEARANCE: Well appearing, no pain, no distress, well-nourished. HEAD: normocephalic, atraumatic. EYES: PERRLA/EOMI, conjunctivae clear. NOSE: Normal no drainage EARS:TMS clear with good light reflex. THROAT: Pharynx clear, no exudate. NECK: Supple. No adenopathy, no masses. RESPIRATORY: Airway patent, respirations nonlabored. Clear to auscultation bilaterally, no rales, rhonchi, wheezing. CARDIOVASCULAR: Regular rate and rhythm without murmurs rubs or gallops. ABDOMINAL: Soft, nontender, nondistended, normal bowel sounds MUSCULOSKELETAL: Moves all extremities. Strength/ROM intact, No edema, No calf tenderness. NEURO: Alert. Cranial nerves II through XII intact. Grossly intact SKIN: Warm, dry. Normal Color Course Vital Signs Vital signs: Vital Signs Temperature 99.0 F 05/31/25 18:30 Pulse Rate 83 05/31/25 18:30 Respiratory Rate 20 05/31/25 18:30 Blood Pressure 152/92 H 05/31/25 18:30 Pulse Oximetry 100 05/31/25 18:30 Oxygen Delivery Nasal Cannula 05/31/25 18:30 Oxygen Flow Rate 3 05/31/25 18:30 Temperature 97.8 F 05/31/25 23:29 Pulse Rate 87 05/31/25 23:29 Respiratory Rate 24 H 05/31/25 23:29 Blood Pressure 117/76 05/31/25 23:29 Pulse Oximetry 96 05/31/25 23:29 Oxygen Delivery Nasal Cannula 05/31/25 21:44 Oxygen Flow Rate 3 05/31/25 21:44 [facility] Narrative Medical decision making narrative: 80-year-old female presents emergency department for evaluation for increased cough congestion and shortness of breath. Patient is saturating at her normal 3 L of oxygen. Patient appears to be in no distress. Patient is currently afebrile. Chest x-ray shows no acute cardiopulmonary abnormality. EKG showed normal sinus rhythm. Patient did feel improved after breathing treatment. Suspect COPD exacerbation. Patient does have increased sputum productions patient will be treated for suspected pneumonia. CT scan was negative for significant pneumonia. Patient and family are updated on the results of the results. Patient family are comfortable with plan for discharge and close follow-up. All questions concerns were addressed. Differential Diagnosis Differential Diagnosis: Pneumonia, pneumothorax, COVID, RSV influenza, COPD Lab Data [facility] Lab Attestation statement: I personally reviewed the patient's lab results. 05/31/25 21:48 05/31/25 21:48 Labs: Lab Results 05/31/25 05/31/25 Range/Units 21:48 22:38 WBC 8.0 (4.5-10.0) K/mm3 RBC 4.67 (4.2-5.4) M/mm3 Hgb 14.1 (12.0-15.0) g/dL Hct 45.0 (37.0-47.0) % MCV 96.4 (80-100) fl MCH 30.2 (26-34) pg MCHC 31.3 L (32-36) g/dl RDW 13.8 (11.5-14.5) % Plt Count 324 (150-375) k/mm3 MPV 10.4 (7.4-10.4) fl Immature Gran % (Auto) 0.4 (0-0.5) % Neut % (Auto) 57.3 (45.5-73.1) % Lymph % (Auto) 28.7 (18.3-44.2) % [place] % (Auto) 6.8 (2.6-8.5) % Eos % (Auto) 5.4 H (0-4.4) % Baso % (Auto) 1.4 H (0.2-1.2) % Lymph # (Auto) 2.29 (0.9-3.2) K/mm3 [place] # (Auto) 0.5 (0.1-0.6) K/mm3 Eos # (Auto) 0.4 H (0-0.3) K/mm3 Baso # (Auto) 0.1 (0.0-0.1) K/mm3 Abs Immat Gran (auto) 0.03 (0.00-0.031) K/mm3 Absolute Neuts (auto) 4.6 (1.3-6.7) K/mm3 Absolute Nucleated RBC 0.000 (0.0-0.012) K/mm3 Nucleated RBC % 0.0 (0.0-0.2) % Sodium 139 (137-145) mmol/L Potassium 4.0 (3.4-5.0) mmol/L Chloride 104 (98-107) mmol/L Carbon Dioxide 24 (22-30) mmol/L Anion Gap 11 (4-12) mmol/L BUN 9 (7-17) mg/dL Creatinine 0.81 (0.7-1.0) mg/dL Estim Creat Clear Calc 41 ml/min Estimated GFR > 60 (59 - ) Glucose 89 (65-110) mg/dL Lactic Acid 1.0 (0.7-2.0) mmol/L Calcium 9.7 (8.4-10.2) mg/dL Total Bilirubin 0.7 (0.2-1.3) mg/dL AST 24 (14-36) U/L ALT 12 (6-35) U/L Alkaline Phosphatase 89 (38-126) U/L Total Protein 9.5 H (6.3-8.2) g/dL Albumin 4.9 (3.5-5.1) g/dL Influenza A (RT-PCR) Negative (Negative) Influenza B (RT-PCR) Negative (Negative) RSV (RT-PCR) Negative (Negative) SARS-CoV-2 RNA (RT-PCR) Negative (Negative) Imaging Data Attestation: I personally reviewed and interpreted this imaging study as follows: My impression: Chest x-ray: No acute cardiopulmonary abnormality Radiologist's impression: Overnight read CT chest impression: Advanced emphysema and biapical scarring. No focal consolidation, pleural effusion or pneumothorax. Multilevel moderate to severe compression fracture deformity throughout the thoracic lumbar spine, severe at T6, new from prior study. Discharge Plan Discharge Clinical Impression: COPD with emphysema Patient Disposition: Home Condition: Stable Instructions: Antibiotic Form Additional Instructions: Prednisone as directed for the next 5 days. Continue albuterol at home as directed. Antibiotics as directed until completed. Have close follow-up with your primary care physician. If you have any worsening symptoms then please call or return to the emergency department. Patient Language: Bhutanese Prescriptions: New azithromycin 250 mg tablet See Rx Instructions .ROUTE .COMPLEX Qty: 6 0RF Rx Instructions: For 250 mg dose pack: take 500 mg today (day 1), then 250 mg for 4 days (days 2-5) prednisone 50 mg tablet 50 mg PO DAILY 5 Days Qty: 5 0RF amoxicillin-pot clavulanate 875-125 mg tablet 1 tablet PO Q12H 7 Days Qty: 14 0RF albuterol sulfate 90 mcg/actuation HFA aerosol inhaler 1 puff inhalation QID Qty: 6.7 0RF albuterol sulfate 1.25 mg/3 mL solution for nebulization 1.25 mg inhalation Q4H Qty: 75 0RF No Action diltiazem HCl [Cardizem CD] 180 mg capsule,extended release 24hr 180 mg PO DAILY pantoprazole 40 mg tablet,delayed release (DR/EC) See Rx Instructions .ROUTE .COMPLEX Qty: 90 0RF Dose Instruction: TAKE 1 TABLET BY MOUTH EVERY MORNING Rx Instructions: TAKE 1 TABLET BY MOUTH EVERY MORNING albuterol sulfate 90 mcg/actuation HFA aerosol inhaler See Rx Instructions .ROUTE .COMPLEX Qty: 8.5 4RF Dose Instruction: INHALE 2 PUFFS BY MOUTH FOUR TIMES DAILY NEEDED FOR SHORTNESS OF BREATH OR WHEEZING Rx Instructions: INHALE 2 PUFFS BY MOUTH FOUR TIMES DAILY NEEDED FOR SHORTNESS OF BREATH OR WHEEZING albuterol sulfate 2.5 mg /3 mL (0.083 %) solution for nebulization 2.5 mg inhalation QID PRN (Reason: shortness of breath or wheezing) Qty: 180 2RF Rx Instructions: Nebulize 3mL up to once daily as needed for shortness of breath or wheezing. Trelegy Ellipta 100-62.5-25 mcg blister with device See Rx Instructions .ROUTE .COMPLEX Qty: 60 5RF Dose Instruction: INHALE 1 PUFF BY MOUTH DAILY Rx Instructions: INHALE 1 PUFF BY MOUTH DAILY. RINSE AND SPIT AFTER. Follow-up/Referrals: PHYSICIAN,DATA ARCHITECT [Primary Care Provider, Internal Medicine]
[2025-05-31 22:14] LABS: Alanine Aminotransferase 12 U/L (6-35); Albumin Level 4.9 g/dL (3.5-5.1); Alkaline Phosphatase 89 U/L (38-126); Anion Gap 11 mmol/L (4-12); Aspartate Amino Transferase 24 U/L (14-36); Bilirubin,Total 0.7 mg/dL (0.2-1.3); Blood Urea Nitrogen 9 mg/dL (7-17); Calcium 9.7 mg/dL (8.4-10.2); Carbon Dioxide 24 mmol/L (22-30); Chloride 104 mmol/L (98-107); Estimated CRCL calculation 41 ml/min; Estimated Glomerular Filt Rate > 60; Glucose 89 mg/dL (65-110); Potassium 4.0 mmol/L (3.4-5.0); Sodium 139 mmol/L (137-145); Total Protein 9.5 g/dL (6.3-8.2)
[2025-05-31 23:21] LABS: Influenza A QL RT-PCR Negative (Negative); Influenza B QL RT-PCR Negative (Negative); RSV RNA, RT-PCR Negative (Negative); SARS-CoV-2 RNA PCR Negative (Negative)
[2025-05-31] MEDS: AZITHROMYCIN 250 MG TABLET 500 MG PO (23:21)
== END 2025-05-31 23:31 | disposition home or self-care (01) ==
PROVIDERS: Emergency Provider Emergency Medicine
DX: J44.9 Chronic obstructive pulmonary disease, unspecified (principal); R94.31 Abnormal electrocardiogram [ECG] [EKG]; I25.10 Atherosclerotic heart disease of native coronary artery without angina pectoris; Z86.711 Personal history of pulmonary embolism; Z79.01 Long term (current) use of anticoagulants; J96.11 Chronic respiratory failure with hypoxia; Z99.81 Dependence on supplemental oxygen; K21.9 Gastro-esophageal reflux disease without esophagitis; G47.30 Sleep apnea, unspecified; Z87.891 Personal history of nicotine dependence
CPT/HCPCS: 36415; 71046; 71250; 80053; 83605; 85025; 87637; 93005; 94640; 99284; A9270; J7512